=== PATIENT | female | born 1945 | race Caucasian/White ===

== ENCOUNTER 2022-10-09 15:23 | Inpatient (IN) | payer MEDICARE ==
[~2022-10-09] VITALS: Ht 157.5 cm; Wt 57.0 kg
[2022-10-10] MEDS ORDERED: DOCUSATE SODIUM 100 MG (COLACE) CAP PO PRN (11:00)
[2022-10-10] MEDS ORDERED: LOPERAMIDE 2 MG (IMODIUM) TABLET PO PRN (11:00)
[2022-10-10] MEDS ORDERED: guaiFENesin/CODEINE (ROBITUSSIN AC) 10ML UDC PO PRN (11:00)
[2022-10-10] MEDS ORDERED: ACETAMINOPHEN 325 MG TABLET PO PRN (11:00)
[2022-10-10] MEDS ORDERED: diphenhydrAMINE 25 MG TAB (BENADRYL) PO PRN (11:00)
[2022-10-10] MEDS ORDERED: LACTULOSE SYRUP 10GM/15ML (ENULOSE) 30ML UDC PO PRN (11:00)
[2022-10-10] MEDS ORDERED: ALPRAZolam 0.25 MG (XANAX) TAB PO PRN (11:00)
[2022-10-10] MEDS ORDERED: ONDANSETRON 4 MG (ZOFRAN) ORAL DISSOLVE TAB PO PRN (11:00)
[2022-10-10] MEDS ORDERED: BISACODYL 10 MG SUPP (DULCOLAX) PR PRN (11:00)
[2022-10-10] MEDS ORDERED: FLEET ENEMA ADULT 1 EA BTL PR PRN (11:00)
[2022-10-10] MEDS ORDERED: CALCIUM CARBONATE 500 MG (TUMS) TAB.CHEW PO PRN (11:00)
[2022-10-10] MEDS ORDERED: MELATONIN 3 MG TABLET PO PRN (11:00)
[2022-10-10] MEDS ORDERED: ACET325C7 PO (13:49)
[2022-10-10] MEDS ORDERED: APIX5TAB PO (13:51)
[2022-10-10] MEDS ORDERED: EMPA10TA PO (13:52)
[2022-10-10] MEDS ORDERED: DULO30CA49 PO (13:52)
[2022-10-10] MEDS ORDERED: DOCU100C37 PO (13:52)
[2022-10-10] MEDS ORDERED: LORA10TA7 PO (13:56)
[2022-10-10] MEDS ORDERED: FURO20TA4 PO (13:56)
[2022-10-10] MEDS ORDERED: MECL-149 PO (13:57)
[2022-10-10] MEDS ORDERED: METO50TA7 PO (13:57)
[2022-10-10] MEDS ORDERED: PANT40TA52 PO (13:58)
[2022-10-10] MEDS ORDERED: PRAM1TAB2 PO (13:58)
[2022-10-10] MEDS ORDERED: PRAV40TA2 PO (14:01)
[2022-10-10] MEDS ORDERED: POLY17PO6 PO (14:01)
[2022-10-10] MEDS ORDERED: SPIR25TA5 PO (14:02)
[2022-10-10] MEDS ORDERED: TRZ50T PO (14:03)
[2022-10-10 16:00] VITALS: BP 96/54
--- OUTSIDE RECORDS SUMMARY | 2022-10-10 17:18 | XMS REPORT | Encounter Summary ---
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 Industrial Management Teacher Name Role Phone PCP Unavailable Encounter Details Care Team Description Date Type Department Antwan, Interface Unk Provider 10/01/2022 [facility] Virtual [facility] Location Social History Date Tobacco Use Types Packs/Day Years Used Smoking Tobacco: Former Cigarettes Comments Alcohol Use Standard Drinks/Week Never 0 (1 standard drink = 0.6 o z pure alcohol) Sex Assigned at Date Recorded Not on file documented as of this encounter Plan of Treatment Care Team Description Date Type [place] [id number] [facility] [address] [place] [address] 10/17/2022 Office Visit Cardiology Date/Time Name Type Priority Associated Diag noses 10/01/2022 2:27 PM [employer] outside images External Films Routine for PACS documented as of this encounter Procedures Comments Procedure Name Priority Date/Time Associated Diag nosis [employer] OUTSIDE IMAGES Routine 10/01/2022 FOR PACS 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
--- OUTSIDE RECORDS SUMMARY | 2022-10-10 17:18 | XMS REPORT | Clinical Summary ---
Author Author [facility] Organization [facility] Address Unknown Phone Unavailable Care Team Providers Care Chef French Name Role Phone Jennie Holland PCP Allergies Comments Active Allergy Reactions Severity Noted Date Meperidine (Pf) 10/01/2022 Atorvastatin 10/01/2022 Morphine 10/01/2022 Penicillins 10/01/2022 Tetracycline 10/01/2022 Medications End Date Status Medication Sig Dispensed Refills Start Date Active spironolactone Take 0.5 0 (ALDACTONE) 25 MG tablet tablets (12.5 mg total) by mouth daily. Active metoprolol succinate Take 1 tablet 0 (TOPROL-XL) 50 MG 24 hr (50 mg total) tablet by mouth daily. Active empagliflozin (JARDIANCE) Take by mouth 0 10 mg tablet daily. Active trazodone (DESYREL) 50 MG Take 1 tablet 0 tablet (50 mg total) by mouth nightly. Active pravastatin (PRAVACHOL) Take 1 tablet 0 40 MG tablet (40 mg total) by mouth at bedtime. Active DULoxetine (CYMBALTA) 30 Take 1 0 mg capsule capsule (30 mg total) by mouth at bedtime. Active Docusate Sodium 100 MG Take 1 0 capsule capsule (100 mg total) by mouth 2 (two) times a day. Active pantoprazole (PROTONIX) Take 1 tablet 0 40 MG tablet (40 mg total) by mouth every morning. Active pramipexole (MIRAPEX) 1 Take 1 tablet 0 MG tablet (1 mg total) by mouth at bedtime. Active apixaban (ELIQUIS) 5 mg Take 1 tablet 0 tabletIndications: CVA (5 mg total) 3 by mouth 2 (two) times a day. Active furosemide (LASIX) 20 MG Take 1 tablet 0 10/11 tabletIndications: (20 mg total) 3 peripheral edema due to by mouth chronic heart failure daily. Active loratadine (CLARITIN) 10 Take 1 tablet 0 10/11 mg tabletIndications: (10 mg total) 3 allergic rhinitis by mouth daily. Active polyethylene glycol Take 1 packet 14 each 0 09/15 (GLYCOLAX) 17 gram packet (17 g total) 3 by mouth daily as needed. Active meclizine (ANTIVERT) 25 Take 1 tablet 0 mg tabletIndications: (25 mg total) 3 vertigo by mouth 3 (three) times a day. Active acetaminophen (TYLENOL) Take 1-2 0 325 MG tablet tablets 3 (325-650 mg total) by mouth every 6 (six) hours as needed. 10/10/2022 Discontinued (Stop Taking at Discharge) lisinopriL (PRINIVIL, Take 1 tablet 0 ZESTRIL) 5 MG tablet (5 mg total) by mouth daily. 10/10/2022 Discontinued (Stop Taking at Discharge) aspirin 81 MG chewable Chew 1 tablet 0 tablet (81 mg total) daily. Active Problems Problem Noted Date Acute renal insufficiency 10/09/2022 Last Assessment & Plan: Formatting of t his note might be different from the original. -Creatinine trending up, 1.83 today fro m 1.3-1.4. -Suspect related to hypotension and diu retic. Hold furosemide tomorrow (already received a dose today). -Renally dose all medications and avoid nephrotoxic agents. -Monitor BMP. S/P TAVR (transcatheter aortic valve replacement) Last Assessment & Plan: Formatting of t his note might be different from the original. -S/p TAVR on 09/22/22. -Cardiology following; appreciate their help. -With no prior history of coronary dise ase, cardiology okay with proceeding with DOAC only without aspirin. RLS (restless legs syndrome) 10/06/2022 Last Assessment & Plan: Formatting of t his note might be different from the original. -Continue pramipexole. 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 -Echocardiogram noted EF 23% (up from 1 0%). -Cardiology following; appreciate their help. -Transitioned to oral furosemide 20 mg daily. -Continue metoprolol, Jardiance, and sp ironolactone. Losartan 12.5 mg daily yesterday as well but discontinue d today due to low blood pressures and PENG. -Needs to follow-up with dye worker JAROCHO Mas and will need to discuss consideration of ICD therapy if EF remains low. -Daily weights monitor I's and O's. -Telemetry monitoring. Type 2 diabetes mellitus without complication, withou t long-term current 10/05/2022 use of insulin Last Assessment & Plan: Formatting of t his note might be different from the original. -Hemoglobin A1c 5.9. -Continue Jardiance. -Okay to go without Accu-Cheks and slid ing scale at this time. Constipation 10/05/2022 Last Assessment & Plan: Formatting of t his note might be different from the original. -Improved. -Continue bowel regimen. Acute ischemic stroke 10/01/2022 Last Assessment & Plan: Formatting of t his note might be different from the original. -Cardioembolic CVA with residual vertig o, left-sided weakness, and visual field deficit. -Evaluated by neurology; appreciate the ir help. -Imaging showed multifocal acute infarc ts involving the bilateral frontoparietal and supra lobes in the b ilateral cerebellar hemispheres. Patient additionally had trace type I p etechial hemorrhage. -Repeat CT head on 10/08 showed redemons tration of hypodensities with increased surrounding vasogenic edema c onsistent with evolving infarcts but no acute hemorrhage or significant mass effect/midline shift. -Per cardiology, okay to continue with DOAC alone and stop antiplatelets. -After discussing with neurology patien t started on oral apixaban for anticoagulation on 10/08. -Continue PT/OT. -Social for discharge planning. Gurdeep joyner plans for discharge to acute rehab facility tomorrow. Resolved Problems Problem Noted Date Resolved Date Pneumonia of both lungs due to infectious organism 023 10/09/2022 Last Assessment & Plan: Formatting of t his note might be different from the original. -Questionable diagnosis of pneumonia on transfer from outside hospital. Patient did have leukocytosis with WBC of 18. -Completed course of cefepime on 10/05. Acute hypoxemic respiratory failure 10/01/2022 CHF (congestive heart failure) 10/01/2022 023 Encounters Care Team Description Date Type Specialty Zaida Cruz MD Lehenbauer, Kyle, MD Balani, Karishma, MD Fuller, David, MD Acute ischemic stroke (HCC) (Primary Dx) ; Acute hypoxemic respiratory failure (HCC); Restless leg syndrome; Acute on chronic systolic congestive heart failure (HCC); Acute on chronic combined systolic and diastolic congestive heart failure (HCC); S/P TAVR (transcatheter aortic valve replacement); Acute renal insufficiency 10/01/2022 Hospital Cardiology - Encounter 10/10/2022 [place]twan, Interface Unk Provider 10/01/2022 [facility] from Last 3 Months Immunizations Name Administration Dates Next Due Influenza, High Dose 05/08/2018, 05/13/2016, 12/2014 Seasonal, Preservative-free Moderna Sars-COV-2 Half 07/06/2021 Dose Booster Moderna Sars-cov-2 (12+) 11/12/2020, 10/15/2020 Pneumococcal Conjugate 06/18/2015 13-Valent Pneumococcal 07/15/2016 Polysaccharide 23-Valent Varicella Zoster 10/13/2019, 05/22/2019 Recombinant, Adjuvanted (Shingrix) influenza high dose (PF) 06/01/2022 seasonal Social History Date Tobacco Use Types Packs/Day Years Used Smoking Tobacco: Former Cigarettes Tobacco Cessation: Counseling Given: Not Answered Comments Alcohol Use Standard Drinks/Week Never 0 (1 standard drink = 0.6 o z pure alcohol) Sex Assigned at Date Recorded Not on file Last Filed Vital Signs Reading Time Taken Comments Vital Sign 116/52 10/10/2022 7:22 AM AMUSEMENT MACHINE MECHANIC Blood Pressure 97 10/10/2022 7:22 AM AMUSEMENT MACHINE MECHANIC Pulse 36.5 C (97.7 F) 10/10/2022 7:22 AM AMUSEMENT MACHINE MECHANIC Temperature 18 10/10/2022 7:22 AM AMUSEMENT MACHINE MECHANIC Respiratory Rate 97% 10/10/2022 7:22 AM AMUSEMENT MACHINE MECHANIC Oxygen Saturation - - Inhaled Oxygen Concentration 60.8 kg (134 lb 1.6 oz) 10/10/2022 4:51 AM AMUSEMENT MACHINE MECHANIC Weight 157.5 cm (5' 2") 10/01/2022 10:46 AM AMUSEMENT MACHINE MECHANIC Height 24.53 10/01/2022 10:46 AM AMUSEMENT MACHINE MECHANIC Body Mass Index Plan of Treatment Care Team Description Date [place] [address] [place] [address] 10/17/2022 Office Visit Cardiology Health Maintenance Due Date Last Done Comments Diabetes Mellitus 1945 Ophthalmology Exam Diabetes Mellitus Urine 1945 Microalbumin Hepatitis C Screen 1945 Td/Tdap# 1945 Diabetes Mellitus Foot 1955 Exam Depression Screening 2010 PHQ-9 # Osteoporosis Screening 2010 COVID-19 Vaccine (4 - 08/31/2021 07/06/2021, Booster for Moderna 11/12/2020, series) 10/15/2020 Advance Care Planning 08/14/2022 Conversation# Medicare Annual Wellness 08/14/2022 Social Determinants of 08/14/2022 Health# Diabetes Mellitus 03/31/2023 10/01/2022 Hemoglobin A1C Lipid Screening 10/01/2023 10/01/2022 Fall Risk Assessment # 10/10/2023 10/10/2022 Pneumococcal Vaccine: 65+ Completed 07/15/2016, Years 06/18/2015 Zoster Vaccine# Completed 10/13/2019, 05/22/2019 Influenza Vaccine Completed 06/01/2022, 05/08/2018, 05/13/2016, Additional history exists Procedures Comments Procedure Name Priority Date/Time Associated Diag nosis PROTHROMBIN TIME/INR Routine 10/10/2022 9:03 AM AMUSEMENT MACHINE MECHANIC MAGNESIUM Timed 10/10/2022 9:03 AM AMUSEMENT MACHINE MECHANIC CBC AND DIFF (MANUAL DIFF Routine 10/10/2022 IF NECESSARY) 9:03 AM AMUSEMENT MACHINE MECHANIC BASIC METABOLIC PANEL Timed 10/10/2022 9:03 AM AMUSEMENT MACHINE MECHANIC PROTHROMBIN TIME/INR Routine 10/09/2022 7:27 AM AMUSEMENT MACHINE MECHANIC MAGNESIUM Timed 10/09/2022 7:27 AM AMUSEMENT MACHINE MECHANIC CBC AND DIFF (MANUAL DIFF Routine 10/09/2022 IF NECESSARY) 7:27 AM AMUSEMENT MACHINE MECHANIC BASIC METABOLIC PANEL Timed 10/09/2022 7:27 [address] AMUSEMENT MACHINE [address]IC CT HEAD WO CONTRAST Routine 10/08/2022 7:41 AM AMUSEMENT MACHINE MECHANIC PROTHROMBIN TIME/INR Routine 10/07/2022 8:04 PM AMUSEMENT MACHINE MECHANIC MAGNESIUM Timed 10/07/2022 8:04 PM AMUSEMENT MACHINE MECHANIC CBC AND DIFF (MANUAL DIFF Routine 10/07/2022 IF NECESSARY) 8:04 PM AMUSEMENT MACHINE MECHANIC BASIC METABOLIC PANEL Timed 10/07/2022 8:04 PM AMUSEMENT MACHINE MECHANIC GLUCOSE POC Routine 10/07/2022 12:17 PM AMUSEMENT MACHINE MECHANIC GLUCOSE POC Routine 10/07/2022 7:47 AM AMUSEMENT MACHINE MECHANIC PROTHROMBIN TIME/INR Routine 10/07/2022 6:10 AM AMUSEMENT MACHINE MECHANIC MAGNESIUM Timed 10/07/2022 6:10 AM AMUSEMENT MACHINE MECHANIC CBC AND DIFF (MANUAL DIFF Routine 10/07/2022 IF NECESSARY) 6:10 AM AMUSEMENT MACHINE MECHANIC BASIC METABOLIC PANEL Timed 10/07/2022 6:10 AM AMUSEMENT MACHINE MECHANIC GLUCOSE POC Routine 10/06/2022 8:50 PM AMUSEMENT MACHINE MECHANIC GLUCOSE POC Routine 10/06/2022 5:07 PM AMUSEMENT MACHINE MECHANIC GLUCOSE POC Routine 10/06/2022 11:51 AM AMUSEMENT MACHINE MECHANIC XR CHEST SINGLE VIEW Routine 10/06/2022 FRONTAL 7:50 AM AMUSEMENT MACHINE MECHANIC GLUCOSE POC Routine 10/06/2022 7:28 AM AMUSEMENT MACHINE MECHANIC PROTHROMBIN TIME/INR Routine 10/06/2022 6:48 AM AMUSEMENT MACHINE MECHANIC B TYPE NATRIURETIC Routine 10/06/2022 PEPTIDE (BNP) 6:47 AM AMUSEMENT MACHINE MECHANIC MAGNESIUM Timed 10/06/2022 6:47 AM AMUSEMENT MACHINE MECHANIC CBC AND DIFF (MANUAL DIFF Routine 10/06/2022 IF NECESSARY) 6:47 AM AMUSEMENT MACHINE MECHANIC BASIC METABOLIC PANEL Timed 10/06/2022 6:47 AM AMUSEMENT MACHINE MECHANIC GLUCOSE POC Routine 10/05/2022 8:19 PM AMUSEMENT MACHINE MECHANIC GLUCOSE POC Routine 10/05/2022 4:51 PM AMUSEMENT MACHINE MECHANIC XR CHEST 2 VIEWS (PA AND Routine 10/05/2022 LATERAL) 1:18 PM AMUSEMENT MACHINE MECHANIC GLUCOSE POC Routine 10/05/2022 12:06 PM AMUSEMENT MACHINE MECHANIC GLUCOSE POC Routine 10/05/2022 7:40 AM AMUSEMENT MACHINE MECHANIC PROTHROMBIN TIME/INR Routine 10/05/2022 7:25 AM AMUSEMENT MACHINE MECHANIC MAGNESIUM Timed 10/05/2022 7:25 AM AMUSEMENT MACHINE MECHANIC CBC AND DIFF (MANUAL DIFF Routine 10/05/2022 IF NECESSARY) 7:25 AM AMUSEMENT MACHINE MECHANIC BASIC METABOLIC PANEL Timed 10/05/2022 7:25 AM AMUSEMENT MACHINE MECHANIC GLUCOSE POC Routine 10/04/2022 9:03 PM AMUSEMENT MACHINE MECHANIC GLUCOSE POC Routine 10/04/2022 4:30 PM AMUSEMENT MACHINE MECHANIC FL SWALLOWING FUNCTION W Routine 10/04/2022 VIDEO 3:31 PM AMUSEMENT MACHINE MECHANIC GLUCOSE POC Routine 10/04/2022 11:19 AM AMUSEMENT MACHINE MECHANIC GLUCOSE POC Routine 10/04/2022 7:49 AM AMUSEMENT MACHINE MECHANIC PROTHROMBIN TIME/INR Routine 10/03/2022 11:46 PM AMUSEMENT MACHINE MECHANIC MAGNESIUM Timed 10/03/2022 11:46 PM AMUSEMENT MACHINE MECHANIC CBC AND DIFF (MANUAL DIFF Routine 10/03/2022 IF NECESSARY) 11:46 PM AMUSEMENT MACHINE MECHANIC BASIC METABOLIC PANEL Timed 10/03/2022 11:46 PM AMUSEMENT MACHINE MECHANIC GLUCOSE POC Routine 10/03/2022 9:09 PM AMUSEMENT MACHINE MECHANIC GLUCOSE POC Routine 10/03/2022 4:45 PM AMUSEMENT MACHINE MECHANIC GLUCOSE POC Routine 10/03/2022 11:23 AM AMUSEMENT MACHINE MECHANIC TROPONIN-I HS 0HR Routine 10/03/2022 9:00 AM AMUSEMENT MACHINE MECHANIC XR CHEST SINGLE VIEW PORFIRIO 10/03/2022 FRONTAL 8:47 AM AMUSEMENT MACHINE MECHANIC GLUCOSE POC Routine 10/03/2022 7:27 AM AMUSEMENT MACHINE MECHANIC MAGNESIUM Timed 10/03/2022 4:42 AM AMUSEMENT MACHINE MECHANIC BASIC METABOLIC PANEL Timed 10/03/2022 4:42 AM AMUSEMENT MACHINE MECHANIC CBC AND DIFF (MANUAL DIFF Routine 10/03/2022 IF NECESSARY) 4:42 AM AMUSEMENT MACHINE MECHANIC PROTHROMBIN TIME/INR Routine 10/03/2022 4:42 AM AMUSEMENT MACHINE MECHANIC GLUCOSE POC Routine 10/02/2022 8:11 PM AMUSEMENT MACHINE MECHANIC GLUCOSE POC Routine 10/02/2022 4:59 PM AMUSEMENT MACHINE MECHANIC GLUCOSE POC Routine 10/02/2022 11:33 AM AMUSEMENT MACHINE MECHANIC LACTATE VENOUS WB STAT 10/02/2022 9:26 AM AMUSEMENT MACHINE MECHANIC GLUCOSE POC Routine 10/02/2022 7:44 AM AMUSEMENT MACHINE MECHANIC XR CHEST SINGLE VIEW Routine 10/02/2022 FRONTAL 7:05 AM AMUSEMENT MACHINE MECHANIC PROTHROMBIN TIME/INR Routine 10/02/2022 5:24 AM AMUSEMENT MACHINE MECHANIC LACTATE VENOUS WB Timed 10/02/2022 12:59 AM AMUSEMENT MACHINE MECHANIC BASIC METABOLIC PANEL Routine 10/02/2022 12:17 AM AMUSEMENT MACHINE MECHANIC CBC AND DIFF (MANUAL DIFF Routine 10/02/2022 IF NECESSARY) 12:17 AM AMUSEMENT MACHINE MECHANIC GLUCOSE POC Routine 10/01/2022 9:51 PM AMUSEMENT MACHINE MECHANIC MRI HEAD W WO CONTRAST Routine 10/01/2022 9:19 PM AMUSEMENT MACHINE MECHANIC ECHO LIMITED W DOPPLER Routine 10/01/2022 AND COLOR FLOW W CONTRAST 4:07 PM AMUSEMENT MACHINE MECHANIC GLUCOSE POC Routine 10/01/2022 3:19 PM AMUSEMENT MACHINE MECHANIC POWERSHARE OUTSIDE IMAGES Routine 10/01/2022 FOR PACS 2:27 PM AMUSEMENT MACHINE MECHANIC ECG Routine 10/01/2022 1:40 PM AMUSEMENT MACHINE MECHANIC CULTURE, BLOOD Timed 10/01/2022 12:48 PM AMUSEMENT MACHINE MECHANIC CULTURE, BLOOD Timed 10/01/2022 12:32 PM AMUSEMENT MACHINE MECHANIC MRSA NASAL PCR Routine 10/01/2022 12:26 PM AMUSEMENT MACHINE MECHANIC LIPID PANEL Add-On 10/01/2022 12:22 PM AMUSEMENT MACHINE MECHANIC LACTATE VENOUS WB STAT 10/01/2022 12:[address] ANGIO NECK Routine 10/01/2022 11:[address] ANGIO HEAD AND STAT 10/01/2022 PERFUSION P 11:05 AM AMUSEMENT MACHINE MECHANIC STROKE CT HEAD WO STAT 10/01/2022 CONTRAST 11:03 AM AMUSEMENT MACHINE MECHANIC HEMOGLOBIN A1C Add-On 10/01/2022 10:52 AM AMUSEMENT MACHINE MECHANIC TROPONIN-I HS 0HR Add-On 10/01/2022 10:52 AM AMUSEMENT MACHINE MECHANIC THYROID STIMULATING Routine 10/01/2022 HORMONE 10:52 AM AMUSEMENT MACHINE MECHANIC PROTHROMBIN TIME/INR Routine 10/01/2022 10:52 AM AMUSEMENT MACHINE MECHANIC COMPLETE BLOOD COUNT Routine 10/01/2022 10:52 AM AMUSEMENT MACHINE MECHANIC COMPREHENSIVE METABOLIC Routine 10/01/2022 PANEL 10:52 AM AMUSEMENT MACHINE MECHANIC MAGNESIUM Routine 10/01/2022 10:52 AM AMUSEMENT MACHINE MECHANIC XR CHEST SINGLE VIEW PORFIRIO 10/01/2022 FRONTAL 10:50 AM AMUSEMENT MACHINE MECHANIC GLUCOSE POC Routine 10/01/2022 10:46 AM AMUSEMENT MACHINE MECHANIC OXYGEN Routine 10/01/2022 10:38 AM AMUSEMENT MACHINE MECHANIC from Last 3 Months Results * (ABNORMAL) Prothrombin Time/INR (10/10/2022 9:03 AM AMUSEMENT MACHINE MECHANIC) Only the most recent of 10 results within the time period is included. Pathologist Signature Component Value Ref Test Method Analysis Performed A t Range Time Protime 15.1 (H) 11.4 - 10/10/2022 SL[facility] 15.0 Sec 9:44 AM AMUSEMENT MACHINE MECHANIC INR 1.2 0.8 - 10/10/2022 [facility] 1.2 9:44 AM AMUSEMENT MACHINE MECHANIC Anatomical Location / Laterality Collection Method / Volume Ophelia ection Time Received Time Specimen (Source) Venipuncture / Unknown 10/10/2022 9:03 AM AMUSEMENT MACHINE MECHANIC 0 10/10/2022 9:14 AM AMUSEMENT MACHINE MECHANIC Blood (Venous) Santana Ruby MD LAB BLOOD ORDERABLES City/State/ZIP Code Phone Number Performing [place] [address] [address] [facility] * (ABNORMAL) Magnesium (10/10/2022 9:03 AM AMUSEMENT MACHINE MECHANIC) Only the most recent of 9 results within the time period is included. Pathologist Signature Component Value Ref Test Method Analysis Performed A t Range Time Magnesium 2.8 (H) 1.6 - 10/10/2022 SLRL 2.6 9:50 AM mg/dL AMUSEMENT MACHINE MECHANIC Anatomical Location / Laterality Collection Method / Volume Ophelia ection Time Received Time Specimen (Source) Venipuncture / Unknown 10/10/2022 9:03 AM AMUSEMENT MACHINE MECHANIC 0 10/10/2022 9:14 AM AMUSEMENT MACHINE MECHANIC Blood (Venous) Santana Ruby MD LAB BLOOD ORDERABLES City/State/ZIP Code Phone Number Performing [place] [address] [place] [address] * (ABNORMAL) CBC and Diff (manual diff if necessary) (10/10/2022 9:03 AM AMUSEMENT MACHINE MECHANIC) Only the most recent of 9 results within the time period is included. Pathologist Signature Component Value Ref Test Method Analysis Performed A t Range Time WBC 8.00 4.00 - 10/10/2022 [facility] 11.00 9:26 AM TH/uL AMUSEMENT MACHINE MECHANIC RBC 3.49 (L) 4.00 - 10/10/2022 SLRL 5.00 9:26 AM mil/uL AMUSEMENT MACHINE MECHANIC Hemoglobin 10.3 (L) 12.0 - 10/10/2022 [facility] 15.0 9:26 AM g/dL AMUSEMENT MACHINE MECHANIC Hematocrit 33 (L) 36 - 45 10/10/2022 [facility] % 9:26 AM AMUSEMENT MACHINE MECHANIC MCV 95 80 - 99 10/10/2022 [facility] fL 9:26 AM AMUSEMENT MACHINE MECHANIC MCH 30 27 - 34 10/10/2022 [facility] pg 9:26 AM AMUSEMENT MACHINE MECHANIC MCHC 31 (L) 32 - 36 10/10/2022 [facility] g/dL 9:26 AM AMUSEMENT MACHINE MECHANIC RDW 14.1 9.0 - 10/10/2022 SLRL 14.5 % 9:26 AM AMUSEMENT MACHINE MECHANIC Platelet Count 404 (H) 140 - 10/10/2022 [facility]RL 400 9:26 AM Th/uL AMUSEMENT MACHINE MECHANIC MPV 10.2 9.4 - 10/10/2022 [facility] 12.3 fL 9:26 AM AMUSEMENT MACHINE MECHANIC Nucleated RBCs 0 0 - 0 10/10/2022 [facility]RL /100 WBC 9:26 AM AMUSEMENT MACHINE MECHANIC % Neutrophils 65 45 - 78 10/10/2022 [facility] % 9:26 AM AMUSEMENT MACHINE MECHANIC % Lymphocytes 20 15 - 47 10/10/2022 [facility]RL % 9:26 AM AMUSEMENT MACHINE MECHANIC % Monocytes 6 0 - 12 % 10/10/2022 SLRL 9:26 AM AMUSEMENT MACHINE MECHANIC % Eosinophils 7 0 - 7 % 10/10/2022 SLRL 9:26 AM AMUSEMENT MACHINE MECHANIC % Basophils 2 0 - 2 % 10/10/2022 SLRL 9:26 AM AMUSEMENT MACHINE MECHANIC % Imm Grans 0 0 - 1 % 10/10/2022 SLRL 9:26 AM AMUSEMENT MACHINE MECHANIC # Granulocytes 5.20 1.70 - 10/10/2022 SLRL 6.80 9:26 AM TH/uL AMUSEMENT MACHINE MECHANIC # Lymphocytes 1.62 1.00 - 10/10/2022 SLRL 3.30 9:26 AM TH/uL AMUSEMENT MACHINE MECHANIC # Monocytes 0.48 0.20 - 10/10/2022 SLRL 0.90 9:26 AM TH/uL AMUSEMENT MACHINE MECHANIC # Eosinophils 0.55 (H) 0.00 - 10/10/2022 SLRL 0.40 9:26 AM TH/uL AMUSEMENT MACHINE MECHANIC # Basophils 0.12 (H) 0.00 - 10/10/2022 SLRL 0.10 9:26 AM TH/uL AMUSEMENT MACHINE MECHANIC Anatomical Location / Laterality Collection Method / Volume Ophelia ection Time Received Time Specimen (Source) Venipuncture / Unknown 10/10/2022 9:03 AM AMUSEMENT MACHINE MECHANIC 0 10/10/2022 9:14 AM AMUSEMENT MACHINE MECHANIC Blood (Venous) Santana Ruby MD LAB BLOOD ORDERABLES City/State/ZIP Code Phone Number Performing [place] [address] [facility] [address] [place] [address] * (ABNORMAL) Basic Metabolic Panel (10/10/2022 9:03 AM AMUSEMENT MACHINE MECHANIC) Only the most recent of 9 results within the time period is included. Pathologist Signature Component Value Ref Test Method Analysis Performed A t Range Time Sodium 136 136 - 10/10/2022 SLRL 145 9:50 AM mEq/L AMUSEMENT MACHINE MECHANIC Potassium 4.0 3.4 - 10/10/2022 SLRL 5.1 9:50 AM mEq/L AMUSEMENT MACHINE MECHANIC Chloride 100 98 - 109 10/10/2022 [facility]RL mEq/L 9:50 AM AMUSEMENT MACHINE MECHANIC Comment: Reference interval updated 10/14/2021. Carbon Dioxide 26 20 - 31 10/10/2022 [facility]RL mEq/L 9:50 AM AMUSEMENT MACHINE MECHANIC Anion Gap 10 <17 10/10/2022 [facility]RL mmol/L 9:50 AM AMUSEMENT MACHINE MECHANIC Comment: Reference interval updated 02/18/22. Calcium 9.5 8.3 - 10/10/2022 SLRL 10.6 9:50 AM mg/dL AMUSEMENT MACHINE MECHANIC Glucose 220 (H) 70 - 100 10/10/2022 [facility]RL mg/dL 9:50 AM AMUSEMENT MACHINE MECHANIC Blood Urea Nitrogen 52 (H) 9 - 23 10/10/2022 [facility]RL mg/dL 9:50 AM AMUSEMENT MACHINE MECHANIC Creatinine 1.52 (H) 0.55 - 10/10/2022 SLRL 1.02 9:50 AM mg/dL AMUSEMENT MACHINE MECHANIC eGFR 35.2 (L) 60.0 - 10/10/2022 [facility]RL 200.0 9:50 AM mL/min/1 AMUSEMENT MACHINE MECHANIC .73m*2 Comment: The National Kidney Foundation and the [place] Society [employer]ph[employer] (NKF-ASN) recommends using the 2020 CKD Epidemiology Collaboration (CKD-EPI) equation to calculate estimated glomerular filtration rate (eGFR). This equation is only applicable to adult patients and removes race as a variable. Estimated GFR calculated with 2020 CKD-EPI equation. Vegetarian diet, extremely high or low muscle mass, and may affect results. Anatomical Location / Laterality Collection Method / Volume Ophelia ection Time Received Time Specimen (Source) Venipuncture / Unknown 10/10/2022 9:03 AM AMUSEMENT MACHINE MECHANIC 0 10/10/2022 9:14 AM AMUSEMENT MACHINE MECHANIC Blood (Venous) Santana Ruby MD LAB BLOOD ORDERABLES City/State/ZIP Code Phone Number Performing Address Organization [place], [place] [id number] [place] [address] * CT Head wo contrast (10/08/2022 7:41 AM AMUSEMENT MACHINE MECHANIC) Modality Anatomical Region Laterality Computed Tomography Head Anatomical Location / Laterality Collection Method / Volume Ophelia ection Time Received Time Specimen (Source) 10/08/2022 7:39 AM AMUSEMENT MACHINE MECHANIC Impressions 10/08/2022 9:03 AM AMUSEMENT MACHINE MECHANIC Impression: Redemonstrated hypodensities in the right frontoparietal, left parietal, and bilateral cerebellum with increased surrounding vasogenic edema consistent with evolving infarcts. No acute hemorrhage. No significant mass effect or midline shift. Mild cerebral volume loss. Mild chronic small vessel ischemic disease. ATTESTATION STATEMENT: The Staff Radiologist has personally reviewed the images and dictated, reviewed, or edited the final report. READING SITE: Location SYLVIA Benitez 10/08/2022 9:03 AM AMUSEMENT MACHINE MECHANIC Patient: HENRIETTA KAM Sex#: F #: [id number] Raj#: [id number] Location: [facility] H6N [id number] Ordering Provider: RADHA NORWOOD Procedure Requested: [id number] CT HEAD WO CONTRAST Reason for Exam: f/u on hemorrhagic transformation to decide on starting anticoagulation Exam Ordered: 10/08/2022 0300 Begin exam date/time: 10/08/2022 0739 Exam Date/Time: 10/08/[address] HEAD WO CONTRAST Date: 10/08/2022 7:41 AM Clinical Indication: Multiple infarcts. f/u on hemorrhagic transformation to decide on starting anticoagulation initial encounter Comparison: CT angiogram head 10/01/2022, MRI head 10/01/2022. Technique: 5 mm axial tomographic images were obtained of the head without contrast. These were viewed on brain and bone windows. One or more of the following dose reduction techniques were utilized: Automated exposure control (AEC), Adjustment of mA and/or kV according to patient size, Use of iterative reconstruction technique such as ASiR, CT scan done according to ALARA and image gently/image wisely Findings: Redemonstrated hypodensities in the right frontoparietal, left parietal, and bilateral cerebellum with increased surrounding edema consistent with evolving infarcts. No acute hemorrhage. No significant mass effect or midline shift. Mild generalized cerebral and cerebellar volume loss. Mild nonspecific periventricular hypoattenuation, most commonly seen with chronic small vessel ischemic disease. Calcified atherosclerosis of the bilateral cavernous and paraclinoid internal carotid arteries and intracranial vertebral arteries. No intra- or extra-axial mass or fluid collection. The ventricles are normal in size, shape, and morphology. The subarachnoid cisterns are patent. The visualized paranasal sinuses are normal. The visualized portions of the orbits and globes are normal. The mastoid air cells are clear. The steam cleaning machine operator topogram shows no lytic lesion or fracture. Procedure Note Reid Eden MD - 10/08/2022 Patient: HENRIETTA KAM Sex#: F #: 1945 Raj#: [id number] Location: [address] H634-01 Ordering Provider: RADHA NORWOOD Procedure Requested: [id number] CT HEAD WO CONTRAST Reason for Exam: f/u on hemorrhagic transformation to decide on starting anticoagulation Exam Ordered: 10/08/2022 0300 Begin exam date/time: 10/08/2022 0739 Exam Date/Time: 10/08/[address] HEAD WO CONTRAST Date: 10/08/2022 7:41 AM Clinical Indication: Multiple infarcts. f/u on hemorrhagic transformation to decide on starting anticoagulation initial encounter Comparison: CT angiogram head 10/01/2022, MRI head 10/01/2022. Technique: 5 mm axial tomographic images were obtained of the head without contrast. These were viewed on brain and bone windows. One or more of the following dose reduction techniques were utilized: Automated exposure control (AEC), Adjustment of mA and/or kV according to patient size, Use of iterative reconstruction technique such as ASiR, CT scan done according to ALARA and image gently/image wisely Findings: Redemonstrated hypodensities in the right frontoparietal, left parietal, and bilateral cerebellum with increased surrounding edema consistent with evolving infarcts. No acute hemorrhage. No significant mass effect or midline shift. Mild generalized cerebral and cerebellar volume loss. Mild nonspecific periventricular hypoattenuation, most commonly seen with chronic small vessel ischemic disease. Calcified atherosclerosis of the bilateral cavernous and paraclinoid internal carotid arteries and intracranial vertebral arteries. No intra- or extra-axial mass or fluid collection. The ventricles are normal in size, shape, and morphology. The subarachnoid cisterns are patent. The visualized paranasal sinuses are normal. The visualized portions of the orbits and globes are normal. The mastoid air cells are clear. The steam cleaning machine operator topogram shows no lytic lesion or fracture. IMPRESSION Impression: Redemonstrated hypodensities in the right frontoparietal, left parietal, and bilateral cerebellum with increased surrounding vasogenic edema consistent with evolving infarcts. No acute hemorrhage. No significant mass effect or midline shift. Mild cerebral volume loss. Mild chronic small vessel ischemic disease. ATTESTATION STATEMENT: The Staff Radiologist has personally reviewed the images and dictated, reviewed, or edited the final report. READING SITE: Location [facility] Radha Norwood MD IMG CT ORDERABLES * (ABNORMAL) GLUCOSE POC (10/07/2022 12:17 PM AMUSEMENT MACHINE MECHANIC) Only the most recent of 25 results within the time period is included. Pathologist Signature Component Value Ref Test Method Analysis Performed A t Range Time Glucose POC 151 (H) 70 - 100 10/07/2022 [facility] mg/dL 12:17 PM AMUSEMENT MACHINE MECHANIC Anatomical Location / Laterality Collection Method / Volume Ophelia ection Time Received Time Specimen (Source) 10/07/2022 12:17 PM AMUSEMENT MACHINE MECHANIC 10/07/19 12:24 PM AMUSEMENT MACHINE MECHANIC Blood (Venous) Radha Norwood MD LAB BLOOD ORDERABLES City/State/ZIP Code Phone Number Performing [place] [address] * XR Chest single view frontal (10/06/2022 7:50 AM AMUSEMENT MACHINE MECHANIC) Only the most recent of 4 results within the time period is included. Modality Anatomical Region Laterality Computed Radiography Chest Anatomical Location / Laterality Collection Method / Volume Ophelia ection Time Received Time Specimen (Source) 10/06/2022 7:45 AM AMUSEMENT MACHINE MECHANIC Impressions 10/06/2022 9:59 AM AMUSEMENT MACHINE MECHANIC Stable exam. READING SITE: Home, Out of State Narrative 10/06/2022 9:59 AM AMUSEMENT MACHINE MECHANIC Patient: HENRIETTA KAM Sex#: F #: 1945 Raj#: [id number] Location: [facility] H634-01 Ordering Provider: SANTANA RUBY Procedure Requested: [id number] XR CHEST SINGLE VIEW FRONTAL Reason for Exam: Dyspnea Exam Ordered: 10/06/2022 0300 Begin exam date/time: 10/06/2022 0745 Exam Date/Time: 10/06/2022 0750 XR CHEST SINGLE VIEW FRONTAL INDICATION: Dyspnea. COMPARISON STUDY: 10/05/2022 FINDINGS: Lungs: No confluent consolidation. Minimal bibasilar opacities, grossly unchanged.. Pleura: No pleural effusion or pneumothorax. Heart and Mediastinum: Stable cardiomediastinal silhouette and great vessels. Bones and Soft Tissues: Stable regional skeleton and soft tissues. Procedure Note Juan Celaya MD - 10/06/2022 Patient: HENRIETTA KAM Sex#: F #: 1945 Raj#: [id number] Location: [address] H634-01 Ordering Provider: SANTANA RBUY Procedure Requested: [id number] XR CHEST SINGLE VIEW FRONTAL Reason for Exam: Dyspnea Exam Ordered: 10/06/2022 0300 Begin exam date/time: 10/06/2022 0745 Exam Date/Time: 10/06/2022 0750 XR CHEST SINGLE VIEW FRONTAL INDICATION: Dyspnea. COMPARISON STUDY: 10/05/2022 FINDINGS: Lungs: No confluent consolidation. Minimal bibasilar opacities, grossly unchanged.. Pleura: No pleural effusion or pneumothorax. Heart and Mediastinum: Stable cardiomediastinal silhouette and great vessels. Bones and Soft Tissues: Stable regional skeleton and soft tissues. IMPRESSION Stable exam. READING SITE: Home, Out of State Santana Ruby MD IMG DIAGNOSTIC IMAGING RUPESH HICKEY * (ABNORMAL) BNP (10/06/2022 6:47 AM AMUSEMENT MACHINE MECHANIC) Pathologist Signature Component Value Ref Test Method Analysis Performed A t Range Time BNP 1,228 (H) 0 - 100 10/06/2022 [facility] pg/mL 8:37 AM AMUSEMENT MACHINE MECHANIC Anatomical Location / Laterality Collection Method / Volume Ophelia ection Time Received Time Specimen (Source) Venipuncture / Unknown 10/06/2022 6:47 AM AMUSEMENT MACHINE MECHANIC 0 10/06/2022 7:53 AM AMUSEMENT MACHINE MECHANIC Blood (Venous) Narrative RL - 10/06/2022 8:37 AM AMUSEMENT MACHINE MECHANIC [facility] converted from NTproBNP (Ortho - Vitros 5600) to BNP ([facility] - [facility]) on June 06, 2021. Ronny Leone MD LAB BLOOD ORDERABLES City/State/ZIP Code Phone Number Performing [place] [address] * XR Chest 2 views (PA and lateral) (10/05/2022 1:18 PM AMUSEMENT MACHINE MECHANIC) Modality Anatomical Region Laterality Computed Radiography Chest Anatomical Location / Laterality Collection Method / Volume Ophelia ection Time Received Time Specimen (Source) 10/05/2022 1:04 PM AMUSEMENT MACHINE MECHANIC Impressions 10/05/2022 1:35 PM AMUSEMENT MACHINE MECHANIC Improving bibasilar pulmonary opacities with no confluent consolidation. Improving right-sided pleural effusion. READING SITE: Home, Out of State Narrative 10/05/2022 1:35 PM AMUSEMENT MACHINE MECHANIC Patient: HENRIETTA KAM Sex#: F #: 1945 Raj#: [id number] Location: [facility] H6N H634-01 Ordering Provider: NEVILLE NASSAR Procedure Requested: [id number] XR CHEST 2 VIEWS (PA AND LATERAL) Reason for Exam: increased SOB Exam Ordered: 10/05/2022 1132 Begin exam date/time: 10/05/2022 1304 Exam Date/Time: 10/05/2022 1318 XR CHEST 2 VIEWS (PA AND LATERAL) INDICATION: increased SOB. COMPARISON STUDY: October 03, 2022 FINDINGS: Lungs: Improving bibasilar pulmonary opacities with no confluent consolidation. Pleura: Improving right-sided pleural effusion. No pneumothorax. Heart and Mediastinum: The cardiomediastinal silhouette is stable. The great vessels of the thorax are stable. Bones and Soft Tissues: The bones and soft tissues demonstrate no acute abnormality.. Procedure Note Juan Celaya MD - 10/05/2022 Patient: HENRIETTA KAM Sex#: F #: 1945 Raj#: [id number] Location: [address] H634-01 Ordering Provider: NEVILLE NASSAR Procedure Requested: [id number] XR CHEST 2 VIEWS (PA AND LATERAL) Reason for Exam: increased SOB Exam Ordered: 10/05/2022 1132 Begin exam date/time: 10/05/2022 1304 Exam Date/Time: 10/05/2022 1318 XR CHEST 2 VIEWS (PA AND LATERAL) INDICATION: increased SOB. COMPARISON STUDY: October 03, 2022 FINDINGS: Lungs: Improving bibasilar pulmonary opacities with no confluent consolidation. Pleura: Improving right-sided pleural effusion. No pneumothorax. Heart and Mediastinum: The cardiomediastinal silhouette is stable. The great vessels of the thorax are stable. Bones and Soft Tissues: The bones and soft tissues demonstrate no acute abnormality.. IMPRESSION Improving bibasilar pulmonary opacities with no confluent consolidation. Improving right-sided pleural effusion. READING SITE: Home, Out of State Neville Nassar REPOSSESSION AGENT IMG DIAGNOSTIC IMAGING ORDE RABELIUD * FL Swallowing function w video (10/04/2022 3:31 PM AMUSEMENT MACHINE MECHANIC) Modality Anatomical Region Laterality Computed Radiography Abdomen, Lung, Chest, Neck, Head Anatomical Location / Laterality Collection Method / Volume Ophelia ection Time Received Time Specimen (Source) 10/04/2022 3:10 PM AMUSEMENT MACHINE MECHANIC Impressions 10/04/2022 5:07 PM AMUSEMENT MACHINE MECHANIC Mild pharyngeal dysphagia. Please refer to the speech pathology report for further details. ATTESTATION STATEMENT: The Staff Radiologist has personally reviewed the images and dictated, reviewed, or edited the final report. READING SITE: [facility] Narrative 10/04/2022 5:07 PM AMUSEMENT MACHINE MECHANIC Patient: HENRIETTA KAM Sex#: F #: 1945 Raj#: [id number] Location: [address] H634-01 Ordering Provider: BLANE BUCKNER Procedure Requested: [id number] FL SWALLOWING FUNCTION W VIDEO Reason for Exam: concern for dysphagia Exam Ordered: 10/04/2022 1130 Begin exam date/time: 10/04/2022 1510 Exam Date/Time: 10/04/2022 1531 FL SWALLOWING FUNCTION W VIDEO INDICATION: concern for dysphagia. COMPARISON: None. TECHNIQUE: Videofluoroscopic study was performed in conjunction with speech pathology. Various barium liquid and/or food substances were used to evaluate swallowing. Total fluoroscopy time was 0.8 minutes with a dose area product of 14.01 uGy*m^2. FINDINGS: Patient demonstrated normal AP initiation and transit. Flash laryngeal penetration is seen without tracheal aspiration. Residuals were seen in the vallecula and/or piriform sinuses. Epiglottic tilt is reduced. No nasopharyngeal reflux. No cricopharyngeal abnormalities. Procedure Note Luis Eduardo Singh, - 10/04/2022 Patient: HENRIETTA KAM Sex#: F #: 1945 Raj#: [id number] Location: [address] H634-01 Ordering Provider: BLANE BUCKNER Procedure Requested: [id number] FL SWALLOWING FUNCTION W VIDEO Reason for Exam: concern for dysphagia Exam Ordered: 10/04/2022 1130 Begin exam date/time: 10/04/2022 1510 Exam Date/Time: 10/04/2022 1531 FL SWALLOWING FUNCTION W VIDEO INDICATION: concern for dysphagia. COMPARISON: None. TECHNIQUE: Videofluoroscopic study was performed in conjunction with speech pathology. Various barium liquid and/or food substances were used to evaluate swallowing. Total fluoroscopy time was 0.8 minutes with a dose area product of 14.01 uGy*m^2. FINDINGS: Patient demonstrated normal AP initiation and transit. Flash laryngeal penetration is seen without tracheal aspiration. Residuals were seen in the vallecula and/or piriform sinuses. Epiglottic tilt is reduced. No nasopharyngeal reflux. No cricopharyngeal abnormalities. IMPRESSION Mild pharyngeal dysphagia. Please refer to the speech pathology report for further details. ATTESTATION STATEMENT: The Staff Radiologist has personally reviewed the images and dictated, reviewed, or edited the final report. READING SITE: [facility] Santana Ruby MD IMG FLUOROSCOPY ORDERABLES * (ABNORMAL) Troponin-I HS Single (10/03/2022 9:00 AM AMUSEMENT MACHINE MECHANIC) Only the most recent of 2 results within the time period is included. Pathologist Signature Component Value Ref Test Method Analysis Performed A t Range Time Troponin I, 0HR HS 1,011 (HH) <=34 10/03/2022 [facility] pg/mL 10:01 AM AMUSEMENT MACHINE MECHANIC Anatomical Location / Laterality Collection Method / Volume Ophelia ection Time Received Time Specimen (Source) Venipuncture / Unknown 10/03/2022 9:00 AM AMUSEMENT MACHINE MECHANIC 0 10/03/2022 9:05 AM AMUSEMENT MACHINE MECHANIC Blood (Venous) Narrative [facility] - 10/03/2022 10:01 AM AMUSEMENT MACHINE MECHANIC [facility] converted from Troponin I (Ortho - Vitros 5600) to High-Sensitivity Troponin I ([facility] - [facility]) on June 06, 2021. Santana Ruby MD LAB BLOOD ORDERABLES [facility]/ZIP Code Phone Number Performing [place] [address] * Lactate Venous WB - Reflex STAT (10/02/2022 9:26 AM AMUSEMENT MACHINE MECHANIC) Only the most recent of 3 results within the time period is included. Pathologist Signature Component Value Ref Test Method Analysis Performed A t Range Time Lactate Venous 0.9 0.0 - 10/02/2022 [facility] 2.0 9:38 AM mmol/L AMUSEMENT MACHINE MECHANIC Anatomical Location / Laterality Collection Method / Volume Ophelia ection Time Received Time Specimen (Source) Arterial / Unknown 10/02/2022 9:26 AM AMUSEMENT MACHINE MECHANIC 10/02 9:33 AM AMUSEMENT MACHINE MECHANIC Blood (Venous) Nael Ledbetter MD LAB BLOOD ORDERABLES [facility]/ZIP Code Phone Number Performing [place] [address] [address] [facility] * MRI Head w wo contrast (10/01/2022 9:19 PM AMUSEMENT MACHINE MECHANIC) Modality Anatomical Region Laterality Magnetic Resonance Head Anatomical Location / Laterality Collection Method / Volume Ophelia ection Time Received Time Specimen (Source) 10/01/2022 8:51 PM AMUSEMENT MACHINE MECHANIC Impressions 10/02/2022 7:02 AM AMUSEMENT MACHINE MECHANIC 1. Multifocal acute infarcts involving the bilateral frontoparietal and occipital lobes and the bilateral cerebellar hemispheres. Pattern suggestive of watershed ischemia and/or multivascular territory embolic event. Associated trace type I petechial hemorrhage in the right frontoparietal and left parietal lobes. Trace enhancement in the infarct in the right frontoparietal region which may relate to subacute infarct. 2. Mild generalized cerebral and cerebel lar volume loss. Mild subcortical and deep periventricular white matter FLAIR hyperintensities, a nonspecific finding, most commonly seen with chronic small vessel ischemic disease. READING SITE: [facility]. ATTESTATION STATEMENT: The Staff Radiologist has personally reviewed the images and dictated, reviewed, or edited the final report. Narrative 10/02/2022 7:02 AM AMUSEMENT MACHINE MECHANIC Patient: HENRIETTA KAM Sex#: F #: 1945 Raj#: [id number] Location: [address] L0HL-25 Ordering Provider: ANDRÉS EWING Procedure Requested: [id number] MRI HEAD W WO CONTRAST Reason for Exam: CVA/stroke -cerebral flow work-up Exam Ordered: 10/01/2022 1338 Begin exam date/time: 10/01/20222050 Exam Date/Time: 10/01/20222118 MRI HEAD W WO CONTRAST Date: 10/01/2022 9:20 PM Indication: CVA/stroke -cerebral flow work-up Comparison: CT head earlier same day. Technique: Multiplanar multisequence MRI of the brain was performed with and without intravenous contrast using the standard protocol. 5 cc Multihance contrast was administered intravenously during the exam. Findings: Multifocal patchy foci of restricted diffusion involving the bilateral frontoparietal and occipital lobes and the bilateral cerebellar hemispheres. Faint associated enhancement and gradient blooming in the right frontoparietal lobe. Additional petechial hemorrhage in the left parietal lobe. Infarct pattern within the cerebrum may relate to superficial and deep watershed territory. The ventricles are normal in size and configuration without hydrocephalus. Mild generalized cerebral and cerebellar volume loss. Mild scattered FLAIR hyperintensities in the subcortical and periventricular deep white matter, a nonspecific finding, most commonly seen with chronic small vessel ischemic disease. The scalp and calvarium are normal. Empty sella. No Chiari malformation. Mild incompletely characterized degenerative spondylosis of the visualized upper cervical spine. Bilateral lens replacements. Bilateral staphyloma. The visualized paranasal sinuses are clear. The mastoid air cells are clear. Normal flow voids within the vertebral, basilar, and internal carotid arteries indicating patency. Procedure Note Theron More DO - 10/02/2022 Patient: HENRIETTA KAM Sex#: F #: 1945 Raj#: [id number] Location: [address] [id number] Ordering Provider: ANDRÉS EWING Procedure Requested: [id number] MRI HEAD W WO CONTRAST Reason for Exam: CVA/stroke -cerebral flow work-up Exam Ordered: 10/01/2022 1338 Begin exam date/time: 10/01/20222050 Exam Date/Time: 10/01/20222118 MRI HEAD W WO CONTRAST Date: 10/01/2022 9:20 PM Indication: CVA/stroke -cerebral flow work-up Comparison: CT head earlier same day. Technique: Multiplanar multisequence MRI of the brain was performed with and without intravenous contrast using the standard protocol. 5 cc Multihance contrast was administered intravenously during the exam. Findings: Multifocal patchy foci of restricted diffusion involving the bilateral frontoparietal and occipital lobes and the bilateral cerebellar hemispheres. Faint associated enhancement and gradient blooming in the right frontoparietal lobe. Additional petechial hemorrhage in the left parietal lobe. Infarct pattern within the cerebrum may relate to superficial and deep watershed territory. The ventricles are normal in size and configuration without hydrocephalus. Mild generalized cerebral and cerebellar volume loss. Mild scattered FLAIR hyperintensities in the subcortical and periventricular deep white matter, a nonspecific finding, most commonly seen with chronic small vessel ischemic disease. The scalp and calvarium are normal. Empty sella. No Chiari malformation. Mild incompletely characterized degenerative spondylosis of the visualized upper cervical spine. Bilateral lens replacements. Bilateral staphyloma. The visualized paranasal sinuses are clear. The mastoid air cells are clear. Normal flow voids within the vertebral, basilar, and internal carotid arteries indicating patency. IMPRESSION 1. Multifocal acute infarcts involving t he bilateral frontoparietal and occipital lobes and the bilateral cerebellar hemispheres. Pattern suggestive of watershed ischemia and/or multivascular territory embolic event. Associated trace type I petechial hemorrhage in the right frontoparietal and left parietal lobes. Trace enhancement in the infarct in the right frontoparietal region which may relate to subacute infarct. 2. Mild generalized cerebral and cerebel lar volume loss. Mild subcortical and deep periventricular white matter FLAIR hyperintensities, a nonspecific finding, most commonly seen with chronic small vessel ischemic disease. READING SITE: [facility]. ATTESTATION STATEMENT: The Staff Radiologist has personally reviewed the images and dictated, reviewed, or edited the final report. Andrés Ewing RN IMG MRI ORDERABLES ANP * ECHO LIMITED W DOPPLER AND COLOR FLOW W CONTRAST (10/01/2022 4:07 PM AMUSEMENT MACHINE MECHANIC) Pathologist Signature Component Value Ref Test Method Analysis Performed A t Range Time ECHOCRITICAL Yes, new PROSOLV critical echo findings available for this patient Modality Anatomical Region Laterality Ultrasound Chest Anatomical Location / Laterality Collection Method / Volume Ophelia ection Time Received Time Specimen (Source) 10/01/2022 3:27 PM AMUSEMENT MACHINE MECHANIC Narrative 10/01/2022 5:55 PM AMUSEMENT MACHINE MECHANIC Conclusions 1. Severely reduced left ventricular systolic function with a calculated ejection fraction of 23%. 2. Severely dilated left ventricular chamber dimension, LVEDV index = 104 ml/m2. 3. Akinesis of the basal-mid inferior and septal fink with hypokinesis of the remaining segments. 4. Normal right ventricular size and systolic function. 5. 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 6. Calcific mitral annulus with mild stenosis (mean gradient 6 mmHg at 86 bpm) and [id number] regurgitation. Comparison * No previous study for comparison. Patient Info Name: Henrietta Kam Age: 77 years : 1945 Gender: Female Ht: 62 in Wt: 124 lbs BSA: 1.57 m2 HR: 87 bpm BP: 94 / 54 mmHg Technical Quality: Adequate Exam Date: 10/01/2022 3:27 PM Patient Status: Inpatient Room Number: H4CC Exam Type: ECHO LIMITED W DOPPLER AND COLOR FLOW W CONTRAST Study Info Indications Cardiomyopathy - Other - BMI: 23 kg/m2 Referring Physician: Clay Bower Attending Physician: Zaida Cruz Head Up Operator: Jazmine Lopez * Definity was used to enhance left ventricular endocardial border definition. Valve Surgery: No Transcatheter Intervention: TAVR Left Ventricle * Nondiagnostic diastolic function parameters. * Severely dilated left ventricular chamber dimension, LVEDV index = 104 ml/m2. * Severely reduced left ventricular systolic function with a calculated ejection fraction of 23%. * Inferior wall left ventricular hypertrophy. Right Ventricle * Normal right ventricular size and systolic function. Hemodynamics * Normal estimated pulmonary arterial systolic pressure is 34 mmHg. Left Atrium * Moderately dilated left atrial chamber dimension, LA volume index = 42 ml/m2. Right Atrium * Normal right atrial chamber dimension. 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 Pulmonic Valve * Normal pulmonic valve. No regurgitation. Mitral Valve * Calcific mitral annulus with mild stenosis (mean gradient 6 mmHg at 86 bpm) and [id number] regurgitation. * Thickened mitral valve leaflets. Tricuspid Valve * Normal tricuspid valve. No regurgitation. Pericardium/Pleural * Moderate left pleural effusion. * No pericardial effusion. Inferior Vena Cava * Normal inferior vena cava with >50% collapse upon inspiration consistent with normal right atrial pressure, 5 mmHg. Aorta * Normal aortic root at the sinuses of Valsalva measuring 2.7 cm with an index of 1.7 cm/m2. * Normal proximal ascending aorta measuring 3.2 cm. Wall Motion Scoring Wall Motion Scoring Index: 2.41 Wall Motion Findings The inferoseptal wall, basal inferior wall, mid inferior wall, basal anteroseptal, and mid anteroseptal are akinetic. The anterior wall, anterolateral wall, inferolateral wall, apical inferior wall, and apical cap are hypokinetic. Measurements Left Ventricular Outflow Tract Name Value Normal LVOT 2D LVOT Diameter 1.5 cm LVOT Doppler LVOT Peak Velocity 148 cm/s LVOT VTI 26 cm LVOT Stroke Volume 45 ml LVOT Stroke Volume Index 29 ml/m2 Mitral Valve Name Value Normal MV Doppler MV Mean Gradient 6 mmHg Heart Rate (MV) 86 bpm MV Regurgitation Doppler MR ERO (PISA) 0.22 cm2 MR Volume (PISA) 31 ml MV Diastolic Function MV E Peak Velocity 123 cm/s >=50 MV A Peak Velocity 145 cm/s MV E/A 0.8 0.8-2.0 Tricuspid Valve Name Value Normal TV Regurgitation Doppler TR Peak Velocity 269 cm/s <=280 Estimated PAP/RSVP RA Pressure 5 mmHg <=5 RV Systolic Pressure 34 mmHg <36 Aorta Name Value Normal Ascending Aorta Sinuses of Valsalva Diameter 2.7 cm 2.7-3.3 Sinuses of Valsalva Index 1.7 cm/m2 1.6-2.0 Prox Asc Ao Diameter 3.2 cm <4.5 Aortic Valve Name Value Normal AV Doppler AV Peak Velocity 173 cm/s <260 AV Mean Gradient 6 mmHg AV VTI 30 cm AV Area (Cont Eq VTI) 1.5 cm2 >=3.0 LVOT VTI/AV VTI Ratio 0.85 Ventricles Name Value Normal LV Dimensions 2D/MM IVS Diastolic Thickness (2D) 0.9 cm 0.6-0.9 LVID Diastole (2D) 4.4 cm 3.8-5.2 LVIW Diastolic Thickness (2D) 1.3 cm 0.6-0.9 IVS/LVIW Diastolic Thickness (2D) 0.69 <1.30 LVID Systole (2D) 3.9 cm 2.2-3.5 LVOT Diameter 1.5 cm Relative Wall Thickness (2D) 0.59 LV Ejection Fraction 2D/MM LV Diastolic Volume (4C MOD) 159 ml LV Systolic Volume (4C MOD) 105 ml LV Diastolic Volume (2C MOD) 166 ml LV Systolic Volume (2C MOD) 146 ml LV Diastolic Volume 164 ml 46-106 LV Diastolic Volume Index 104 ml/m2 29-61 LV Systolic Volume 126 ml 14-42 LV Systolic Volume Index 80 ml/m2 8-24 LV EF 23 % 54-74 LV Diastolic Length (4C) 8.9 cm LV Systolic Length (4C) 7.7 cm LV Stroke Volume (4C MOD) 54 ml LV Stroke Volume Index 34 ml/m2 RV Dimensions 2D/MM RV Basal Diastolic Dimension 3.2 cm 2.5-4.1 RV Diastolic Area (4C) 16.4 cm2 8.0-20.0 RV Systolic Area (4C) 9.8 cm2 3.0-11.0 TAPSE 1.8 cm >=1.7 Atria Name Value Normal LA Dimensions LA Dimension (2D) 3.8 cm 2.7-3.8 LA Volume Index 42 ml/m2 16-34 Report Signatures Finalized by Renetta Hernandez M.D. on 10/01/2022 05:54 PM Procedure Note Renetta Hernandez MD - 10/01/2022 Conclusions 1. Severely reduced left ventricular systolic function with a calculated ejection fraction of 23%. 2. Severely dilated left ventricular chamber dimension, LVEDV index = 104 ml/m2. 3. Akinesis of the basal-mid inferior and septal fink with hypokinesis of the remaining segments. 4. Normal right ventricular size and systolic function. 5. 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 6. Calcific mitral annulus with mild stenosis (mean gradient 6 mmHg at 86 bpm) and yvzs-ic-canknesl regurgitation. Comparison * No previous study for comparison. Patient Info Name: Henrietta Kam Age: 77 years : 1945 Gender: Female Ht: 62 in Wt: 124 lbs BSA: 1.57 m2 HR: 87 bpm BP: 94 / 54 mmHg Technical Quality: Adequate Exam Date: 10/01/2022 3:27 PM Patient Status: Inpatient Room Number: H4CC Exam Type: ECHO LIMITED W DOPPLER AND COLOR FLOW W CONTRAST Study Info Indications Cardiomyopathy - Other - BMI: 23 kg/m2 Referring Physician: Clay Bower Attending Physician: Zaida Cruz Head Up Operator: Jazmine Lopez * Definity was used to enhance left ventricular endocardial border definition. Valve Surgery: No Transcatheter Intervention: TAVR Left Ventricle * Nondiagnostic diastolic function parameters. * Severely dilated left ventricular chamber dimension, LVEDV index = 104 ml/m2. * Severely reduced left ventricular systolic function with a calculated ejection fraction of 23%. * Inferior wall left ventricular hypertrophy. Right Ventricle * Normal right ventricular size and systolic function. Hemodynamics * Normal estimated pulmonary arterial systolic pressure is 34 mmHg. Left Atrium * Moderately dilated left atrial chamber dimension, LA volume index = 42 ml/m2. Right Atrium * Normal right atrial chamber dimension. 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 Pulmonic Valve * Normal pulmonic valve. No regurgitation. Mitral Valve * Calcific mitral annulus with mild stenosis (mean gradient 6 mmHg at 86 bpm) and fkpu-iw-jelubnfe regurgitation. * Thickened mitral valve leaflets. Tricuspid Valve * Normal tricuspid valve. No regurgitation. Pericardium/Pleural * Moderate left pleural effusion. * No pericardial effusion. Inferior Vena Cava * Normal inferior vena cava with >50% collapse upon inspiration consistent with normal right atrial pressure, 5 mmHg. Aorta * Normal aortic root at the sinuses of Valsalva measuring 2.7 cm with an index of 1.7 cm/m2. * Normal proximal ascending aorta measuring 3.2 cm. Wall Motion Scoring Wall Motion Scoring Index: 2.41 Wall Motion Findings The inferoseptal wall, basal inferior wall, mid inferior wall, basal anteroseptal, and mid anteroseptal are akinetic. The anterior wall, anterolateral wall, inferolateral wall, apical inferior wall, and apical cap are hypokinetic. Measurements Left Ventricular Outflow Tract Name Value Normal LVOT 2D LVOT Diameter 1.5 cm LVOT Doppler LVOT Peak Velocity 148 cm/s LVOT VTI 26 cm LVOT Stroke Volume 45 ml LVOT Stroke Volume Index 29 ml/m2 Mitral Valve Name Value Normal MV Doppler MV Mean Gradient 6 mmHg Heart Rate (MV) 86 bpm MV Regurgitation Doppler MR ERO (PISA) 0.22 cm2 MR Volume (PISA) 31 ml MV Diastolic Function MV E Peak Velocity 123 cm/s >=50 MV A Peak Velocity 145 cm/s MV E/A 0.8 0.8-2.0 Tricuspid Valve Name Value Normal TV Regurgitation Doppler TR Peak Velocity 269 cm/s <=280 Estimated PAP/RSVP RA Pressure 5 mmHg <=5 RV Systolic Pressure 34 mmHg <36 Aorta Name Value Normal Ascending Aorta Sinuses of Valsalva Diameter 2.7 cm 2.7-3.3 Sinuses of Valsalva Index 1.7 cm/m2 1.6-2.0 Prox Asc Ao Diameter 3.2 cm <4.5 Aortic Valve Name Value Normal AV Doppler AV Peak Velocity 173 cm/s <260 AV Mean Gradient 6 mmHg AV VTI 30 cm AV Area (Cont Eq VTI) 1.5 cm2 >=3.0 LVOT VTI/AV VTI Ratio 0.85 Ventricles Name Value Normal LV Dimensions 2D/MM IVS Diastolic Thickness (2D) 0.9 cm 0.6-0.9 LVID Diastole (2D) 4.4 cm 3.8-5.2 LVIW Diastolic Thickness (2D) 1.3 cm 0.6-0.9 IVS/LVIW Diastolic Thickness (2D) 0.69 <1.30 LVID Systole (2D) 3.9 cm 2.2-3.5 LVOT Diameter 1.5 cm Relative Wall Thickness (2D) 0. 59 LV Ejection Fraction 2D/MM LV Diastolic Volume (4C MOD) 159 ml LV Systolic Volume (4C MOD) 105 ml LV Diastolic Volume (2C MOD) 166 ml LV Systolic Volume (2C MOD) 146 ml LV Diastolic Volume 164 ml 46-106 LV Diastolic Volume Index 104 ml/m2 29-61 LV Systolic Volume 126 ml 14-42 LV Systolic Volume Index 80 ml/m2 8-24 LV EF 23 % 54-74 LV Diastolic Length (4C) 8.9 cm LV Systolic Length (4C) 7.7 cm LV Stroke Volume (4C MOD) 54 ml LV Stroke Volume Index 34 ml/m2 RV Dimensions 2D/MM RV Basal Diastolic Dimension 3.2 cm 2.5-4.1 RV Diastolic Area (4C) 16.4 cm2 8.0-20.0 RV Systolic Area (4C) 9.8 cm2 3.0-11.0 TAPSE 1.8 cm >=1.7 Atria Name Value Normal LA Dimensions LA Dimension (2D) 3.8 cm 2.7-3.8 LA Volume Index 42 ml/m2 Report Signatures Finalized by Renetta Hernandez M.D. on 10/01/2022 05:54 PM Andrés Ewing RN CV ECHO ORDERABLES ANP * Electrocardiogram without magnet (10/01/2022 1:40 PM AMUSEMENT MACHINE MECHANIC) Pathologist Signature Component Value Ref Test Method Analysis Performed A t Range Time QRSd 146 [facility]AC[facility]ER QT 444 [facility]ER QTC 541 [facility]AC[facility]ER ECGHR 89 TRAC[facility]ER ECGPR 184 [facility]AC[facility]ER Anatomical Location / Laterality Collection Method / Volume Ophelia ection Time Received Time Specimen (Source) 10/01/2022 1:40 PM AMUSEMENT MACHINE MECHANIC Narrative TRACEMASTER - 10/02/2022 9:44 AM AMUSEMENT MACHINE MECHANIC [facility] Test Date: 2022-10-01 Pat Name: [facility] Department: [facility] Room: [facility] Gender: Female Repairer Art Objects: [id number] : 1945 Requested By: CARMENCITA PICKETT Order Number: [id number] Reading MD: Adebayo Gardner Measurements Intervals [place] Rate: 89 P: 51 TN: 184 QRS: -46 QRSD: 146 T: 153 QT: 444 QTc: 541 Interpretive Statements Sinus rhythm Probable left atrial enlargement Left bundle branch block Electronically Signed On 10-02-2022 9:44:02 AMUSEMENT MACHINE MECHANIC by Adebayo Gardner Procedure Note Adebayo Gardner MD - 10/02/2022 [facility] Test Date: 2022-10-01 Pat Name: [facility] Department: [facility] Room: [facility] Gender: Female Repairer Art Objects: [id number] : 1945 Requested By: CARMENCITA PICKETT Order Number: [id number] Reading MD: Adebayo Gardner Measurements Intervals [place] Rate: 89 P: 51 TN: 184 QRS: -46 QRSD: 146 T: 153 QT: 444 QTc: 541 Interpretive Statements Sinus rhythm Probable left atrial enlargement Left bundle branch block Electronically Signed On 10-02-2022 9:44:02 AMUSEMENT MACHINE MECHANIC by Adebayo Gardner Carmencita Pickett MD ECG ORDERABLES City/State/ZIP Code Phone Number Performing Address Organization [facility]AC[facility]ASTER * Culture, Blood (10/01/2022 12:48 PM AMUSEMENT MACHINE MECHANIC) Only the most recent of 2 results within the time period is included. Pathologist Signature Component Value Ref Test Method Analysis Performed A t Range Time Culture growth No growth at [place] 10/06/2022 [facility] 5 days 1:00 PM AMUSEMENT MACHINE MECHANIC Anatomical Location / Laterality Collection Method / Volume Ophelia ection Time Received Time Specimen (Source) Venipuncture / Unknown 10/01/2022 12:48 PM AMUSEMENT MACHINE MECHANIC 0 10/01/2022 12:54 PM AMUSEMENT MACHINE MECHANIC Blood (Peripheral, Wrist) Carmencita Pickett MD [facility] Code Phone Number Performing [place] [address] * MRSA Nasal PCR (10/01/2022 12:26 PM AMUSEMENT MACHINE MECHANIC) Pathologist Signature Component Value Ref Test Method Analysis Performed A t Range Time MRSA PCR Not Detected Not 10/01/2022 [facility] Detected 7:41 PM AMUSEMENT MACHINE MECHANIC Anatomical Location / Laterality Collection Method / Volume Ophelia ection Time Received Time Specimen (Source) Non-Blood Collection / Unknown 10/01/2022 12:26 PM AMUSEMENT MACHINE MECHANIC 10/01/2022 12:30 PM AMUSEMENT MACHINE MECHANIC Swab (NASOPHARYNGEAL SWAB) Carmencita Pickett MD [facility] Code Phone Number Performing Address [place] [address] [address] [facility] * Lipid Panel (10/01/2022 12:22 PM AMUSEMENT MACHINE MECHANIC) Pathologist Signature Component Value Ref Test Method Analysis Performed A t Range Time Cholesterol 115 <200 10/01/2022 [facility] mg/dL 6:24 PM AMUSEMENT MACHINE MECHANIC HDL Cholesterol 58 >40 10/01/2022 [facility] mg/dL 6:24 PM AMUSEMENT MACHINE MECHANIC Non-HDL Cholesterol 57 <=130 10/01/2022 [facility] mg/dL 6:24 PM AMUSEMENT MACHINE MECHANIC Triglycerides 67 <150 10/01/2022 [facility] mg/dL 6:24 PM AMUSEMENT MACHINE MECHANIC LDL Cholesterol 43.6 0 - 99 10/01/2022 [facility] mg/dL 6:24 PM AMUSEMENT MACHINE MECHANIC Cholesterol/HDL 2.0 0.0 - 10/01/2022 [facility] Ratio 4.5 6:24 PM AMUSEMENT MACHINE MECHANIC Anatomical Location / Laterality Collection Method / Volume Ophelia ection Time Received Time Specimen (Source) Venipuncture / Unknown 10/01/2022 12:22 PM AMUSEMENT MACHINE MECHANIC 0 10/01/2022 12:28 PM AMUSEMENT MACHINE MECHANIC Blood (Venous) Andrés Ewing RN LAB BLOOD ORDERABLES ANP City/State/ZIP Code Phone Number Performing [place] [address] [address] [facility] * CT Angio Neck (10/01/2022 11:07 AM AMUSEMENT MACHINE MECHANIC) Modality Anatomical Region Laterality Computed Tomography Neck, Vascular Anatomical Location / Laterality Collection Method / Volume Ophelia ection Time Received Time Specimen (Source) 10/01/2022 11:04 AM AMUSEMENT MACHINE MECHANIC Impressions 10/01/2022 12:58 PM AMUSEMENT MACHINE MECHANIC Impression: 1. No stenosis of the cervical carotid or vertebral arteries. 2. Beaded appearance to the bilateral upper cervical ICA suggesting fibromuscular dysplasia. No associated stenosis, dissection, or pseudoaneurysm. 3. Moderate cervical spondylosis. ATTESTATION STATEMENT: The staff radiologist has personally reviewed the images and dictated, reviewed and/or edited the resident's report. READING SITE: [address] 10/01/2022 12:58 PM AMUSEMENT MACHINE MECHANIC Patient: HENRIETTA KAM Sex#: F #: 1945 Raj#: [id number] Location: [place] [address] Ordering Provider: CARMENCITA PICKETT Procedure Requested: [id number] CT ANGIO NECK Reason for Exam: stroke Exam Ordered: 10/01/2022 1052 Begin exam date/time: 10/01/2022 1104 Exam Date/Time: 10/01/[address] Angiogram of the Neck (with contrast) Date: 10/01/2022 11:11 AM Indication: stroke, left sided weakness Comparison: Concurrent cerebral CT angiogram and perfusion imaging. Technique: CT angiogram of neck was obtained with bolus injection of 75 mL of Omnipaque 350. The images were sent to workstation and multiplanar reconstructions were obtained. These images were sent to a separate work station and 3-D volume rendering was performed. One or more of the following dose reduction techniques were utilized: Automated exposure control (AEC), Adjustment of mA and/or kV according to patient size, Use of iterative reconstruction technique such as ASiR, CT scan done according to ALARA and image gently/image wisely Findings: Right carotid: The right common carotid artery is patent and normal caliber. Mild atherosclerosis of the carotid bifurcation. No stenosis of the right internal carotid artery per NASCET criteria. The right external carotid artery is patent. Beaded appearance to the upper cervical ICA suggesting fibromuscular dysplasia. No associated stenosis, dissection, or pseudoaneurysm. Left carotid: The left common carotid artery is patent and normal caliber. Mild atherosclerosis of the carotid bifurcation. No stenosis of the left internal carotid artery per NASCET criteria. The left external carotid artery is patent. Beaded appearance to the upper cervical ICA suggesting fibromuscular dysplasia. No associated stenosis, dissection, or pseudoaneurysm. Right vertebral: Mild atherosclerosis at the origin of the right vertebral artery, which is otherwise patent and normal caliber. Left vertebral: Mild atherosclerosis at the origin of the left vertebral artery, which is otherwise patent and normal caliber. Mild atherosclerosis of the aortic arch. Mild to moderate atherosclerotic plaque involving the right proximal brachiocephalic artery and mild atherosclerotic plaque of the left brachiocephalic and left subclavian arteries. No cervical lymphadenopathy. The thyroid gland is normal. The parotid and submandibular glands are normal. The visualized aerodigestive tract is unremarkable. Reversal of the cervical spine. Grade 1 anterolisthesis of C4 on C5. Ankylosis of C5-6 vertebral bodies. Moderate multilevel degenerative disc height loss. Multilevel disc protrusions and marginal osteophytes results in multilevel spinal canal stenosis. Multilevel uncovertebral and facet arthrosis with multilevel neural foraminal narrowing. Bilateral pleural effusions. Heterogeneous opacities in the lungs likely atelectasis with underlying edema/infection also possible. Procedure Note Roldan Samayoa MD - 10/01/2022 Patient: HENRIETTA KAM Sex#: F #: 1945 Raj#: [id number] Location: [address] Ordering Provider: CARMENCITA PICKETT Procedure Requested: [id number] CT ANGIO NECK Reason for Exam: stroke Exam Ordered: 10/01/2022 1052 Begin exam date/time: 10/01/2022 110 Exam Date/Time: 10/01/[address] Angiogram of the Neck (with contrast) Date: 10/01/2022 11:11 AM Indication: stroke, left sided weakness Comparison: Concurrent cerebral CT angiogram and perfusion imaging. Technique: CT angiogram of neck was obtained with bolus injection of 75 mL of Omnipaque 350. The images were sent to workstation and multiplanar reconstructions were obtained. These images were sent to a separate work station and 3-D volume rendering was performed. One or more of the following dose reduction techniques were utilized: Automated exposure control (AEC), Adjustment of mA and/or kV according to patient size, Use of iterative reconstruction technique such as ASiR, CT scan done according to ALARA and image gently/image wisely Findings: Right carotid: The right common carotid artery is patent and normal caliber. Mild atherosclerosis of the carotid bifurcation. No stenosis of the right internal carotid artery per NASCET criteria. The right external carotid artery is patent. Beaded appearance to the upper cervical ICA suggesting fibromuscular dysplasia. No associated stenosis, dissection, or pseudoaneurysm. Left carotid: The left common carotid artery is patent and normal caliber. Mild atherosclerosis of the carotid bifurcation. No stenosis of the left internal carotid artery per NASCET criteria. The left external carotid artery is patent. Beaded appearance to the upper cervical ICA suggesting fibromuscular dysplasia. No associated stenosis, dissection, or pseudoaneurysm. Right vertebral: Mild atherosclerosis at the origin of the right vertebral artery, which is otherwise patent and normal caliber. Left vertebral: Mild atherosclerosis at the origin of the left vertebral artery, which is otherwise patent and normal caliber. Mild atherosclerosis of the aortic arch. Mild to moderate atherosclerotic plaque involving the right proximal brachiocephalic artery and mild atherosclerotic plaque of the left brachiocephalic and left subclavian arteries. No cervical lymphadenopathy. The thyroid gland is normal. The parotid and submandibular glands are normal. The visualized aerodigestive tract is unremarkable. Reversal of the cervical spine. Grade 1 anterolisthesis of C4 on C5. Ankylosis of C5-6 vertebral bodies. Moderate multilevel degenerative disc height loss. Multilevel disc protrusions and marginal osteophytes results in multilevel spinal canal stenosis. Multilevel uncovertebral and facet arthrosis with multilevel neural foraminal narrowing. Bilateral pleural effusions. Heterogeneous opacities in the lungs likely atelectasis with underlying edema/infection also possible. IMPRESSION Impression: 1. No stenosis of the cervical carotid or vertebral arteries. 2. Beaded appearance to the bilateral u pper cervical ICA suggesting fibromuscular dysplasia. No associated stenosis, dissection, or pseudoaneurysm. 3. Moderate cervical spondylosis. ATTESTATION STATEMENT: The staff radiologist has personally reviewed the images and dictated, reviewed and/or edited the resident's report. READING SITE: [facility] Carmencita Pickett MD [facility] ORDERABLES * CT Angio Head and Perfusion P (10/01/2022 11:05 AM AMUSEMENT MACHINE MECHANIC) Modality Anatomical Region Laterality Computed Tomography Head, Vascular Anatomical Location / Laterality Collection Method / Volume Ophelia ection Time Received Time Specimen (Source) 10/01/2022 11:04 AM AMUSEMENT MACHINE MECHANIC Impressions 10/01/2022 1:02 PM AMUSEMENT MACHINE MECHANIC Impression: 1. Small multiple acute to subacute infa rcts in the right frontal, left parietal, left occipital lobes, and bilateral cerebellum, likely embolic etiology. Recommend brain MRI for further assessment. 2. No emergent large vessel occlusion. N o large vessel perfusion abnormality. No indication for acute endovascular intervention. 3. No hemorrhage or mass effect. 4. Mild nonspecific periventricular hypo attenuation, most commonly seen with chronic small vessel ischemic disease. The above findings were communicated by telephone to the code neuro nurse by Dr. Samayoa at 11:12 am on 10/01/2022. The findings were also communicated to Dr. ZAIDA CRUZ and Maureen Leiva RN by the complex care nurse practitioner resident. ATTESTATION STATEMENT: The staff radiologist has personally reviewed the images and dictated, reviewed and/or edited the resident's report. READING SITE: [facility] Narrative 10/01/2022 1:02 PM AMUSEMENT MACHINE MECHANIC Patient: HENRIETTA KAM Sex#: F #: 1945 Raj#: [id number] Location: [place] [address] Ordering Provider: ZAIDA CRUZ Procedure Requested: [id number] CT ANGIO HEAD AND PERFUSION P Reason for Exam: stroke symptoms Exam Ordered: 10/01/2022 1100 Begin exam date/time: 10/01/2022 1104 Exam Date/Time: 10/01/[address] Head (without contrast), CT Angiogram & CT Perfusion Head (with contrast) Date: 10/01/2022 11:07 AM Indication: stroke symptoms; left hemiparesis MCA stroke syndrome. CT angiogram is needed to evaluate for any large vessel occlusion. CT perfusion is clinically necessary to determine if the patient may be a candidate for acute endovascular intervention with mechanical thrombectomy for treatment of acute ischemic stroke. Both CT angiogram and perfusion studies are needed to determine patient management. Comparison : Concurrent CTA neck. Technique: Multiple axial tomographic images of the head were obtained without contrast. Axial slices for perfusion were selected and CT perfusion head was performed with bolus injection of 40 cc of Omnipaque 350. The images were sent to workstati on and mean transit time (MTT), cerebral blood flow (CBF), and cerebral blood volume (CBV) were calculated. CT angiogram was obtained after IV administration of 75 ml of Omnipaque-350. These images were sent to work station and 3-D volume rendering was performed. One or more of the following dose reduction techniques were utilized: Automated exposure control (AEC), Adjustment of mA and/or kV according to patient size, Use of iterative reconstruction technique such as ASiR, CT scan done according to ALARA and image gently/image wisely. RAPID AI software was utilized on the CT perfusion images to attempt to automatically detect acute large vessel occlusion (LVO) in order to reduce acute stroke treatment times. This exam was also viewed in real time by a physician. Small arterial branch occlusions arent excluded by CT perfusion. Noncontrast CT Head Findings: Several areas of acute subacute infarcts in the right frontal, left parietal, left cerebellar region, and right cerebellar region. No acute hemorrhage. No intra or extra-axial mass or fluid collection. The ventricles are normal in size and configuration without hydrocephalus. The basilar cisterns are patent. Mild generalized cerebral and cerebellar volume loss. Mild nonspecific periventricular hypoattenuation, most commonly seen with chronic small vessel ischemic disease. No soft tissue abnormality seen. Visible sinuses and orbits are normal. The mastoid air cells are clear. CT Angiogram Findings: Moderate bilateral cavernous internal carotid artery atherosclerosis. Normal filling of the proximal bilateral anterior and middle cerebral branches. The vertebral, basilar and posterior cerebral arteries are normal. No arterial occlusion. No aneurysm. No arteriovenous malformation. CT Perfusion Findings: There are small areas of Tmax asymmetry in the left occipital lobe which are likely artifactual, however occlusion of the distal posterior branches are not excluded. Procedure Note Roldan Samayoa MD - 10/01/2022 Patient: HENRIETTA KAM Sex#: F #: 1945 Raj#: [id number] [id number] Ordering Provider: ZAIDA CRUZ Procedure Requested: [id number] CT ANGIO HEAD AND PERFUSION P Reason for Exam: stroke symptoms Exam Ordered: 10/01/2022 1100 Begin exam date/time: 10/01/2022 1104 Exam Date/Time: 10/01/[address] Head (without contrast), CT Angiogram & CT Perfusion Head (with contrast) Date: 10/01/2022 11:07 AM Indication: stroke symptoms; left hemiparesis MCA stroke syndrome. CT angiogram is needed to evaluate for any large vessel occlusion. CT perfusion is clinically necessary to determine if the patient may be a candidate for acute endovascular intervention with mechanical thrombectomy for treatment of acute ischemic stroke. Both CT angiogram and perfusion studies are needed to determine patient management. Comparison : Concurrent CTA neck. Technique: Multiple axial tomographic images of the head were obtained without contrast. Axial slices for perfusion were selected and CT perfusion head was performed with bolus injection of 40 cc of Omnipaque 350. The images were sent to workstatio n and mean transit time (MTT), cerebral blood flow (CBF), and cerebral blood volume (CBV) were calculated. CT angiogram was obtained after IV administration of 75 ml of Omnipaque-350. These images were sent to work station and 3-D volume rendering was performed. One or more of the following dose reduction techniques were utilized: Automated exposure control (AEC), Adjustment of mA and/or kV according to patient size, Use of iterative reconstruction technique such as ASiR, CT scan done according to ALARA and image gently/image wisely. RAPID AI software was utilized on the CT perfusion images to attempt to automatically detect acute large vessel occlusion (LVO) in order to reduce acute stroke treatment times. This exam was also viewed in real time by a physician. Small arterial branch occlusions arent excluded by CT perfusion. Noncontrast CT Head Findings: Several areas of acute subacute infarcts in the right frontal, left parietal, left cerebellar region, and right cerebellar region. No acute hemorrhage. No intra or extra-axial mass or fluid collection. The ventricles are normal in size and configuration without hydrocephalus. The basilar cisterns are patent. Mild generalized cerebral and cerebellar volume loss. Mild nonspecific periventricular hypoattenuation, most commonly seen with chronic small vessel ischemic disease. No soft tissue abnormality seen. Visible sinuses and orbits are normal. The mastoid air cells are clear. CT Angiogram Findings: Moderate bilateral cavernous internal carotid artery atherosclerosis. Normal filling of the proximal bilateral anterior and middle cerebral branches. The vertebral, basilar and posterior cerebral arteries are normal. No arterial occlusion. No aneurysm. No arteriovenous malformation. CT Perfusion Findings: There are small areas of Tmax asymmetry in the left occipital lobe which are likely artifactual, however occlusion of the distal posterior branches are not excluded. IMPRESSION Impression: 1. Small multiple acute to subacute infa rcts in the right frontal, left parietal, left occipital lobes, and bilateral cerebellum, likely embolic etiology. Recommend brain MRI for further assessment. 2. No emergent large vessel occlusion. N o large vessel perfusion abnormality. No indication for acute endovascular intervention. 3. No hemorrhage or mass effect. 4. Mild nonspecific periventricular hypo attenuation, most commonly seen with chronic small vessel ischemic disease. The above findings were communicated by telephone to the code neuro nurse by Dr. Samayoa at 11:12 am on 10/01/2022. The findings were also communicated to Dr. ZAIDA CRUZ and Maureen Leiva RN by the complex care nurse practitioner resident. ATTESTATION STATEMENT: The staff radiologist has personally reviewed the images and dictated, reviewed and/or edited the resident's report. READING SITE: [facility] Zaida Cruz MD G CT ORDERABLES * Stroke CT Head wo contrast (10/01/2022 11:03 AM AMUSEMENT MACHINE MECHANIC) Modality Anatomical Region Laterality Computed Tomography Head Anatomical Location / Laterality Collection Method / Volume Ophelia ection Time Received Time Specimen (Source) 10/01/2022 10:56 AM AMUSEMENT MACHINE MECHANIC Impressions 10/01/2022 12:54 PM AMUSEMENT MACHINE MECHANIC 1. Numerous small cortical infarcts bilaterally, suggestive of embolic etiology. 2. No acute hemorrhage or mass effect. 3. Mild cerebral volume loss. Mild chr onic small vessel ischemic disease. The above findings were communicated by telephone to Dr. ZAIDA CRUZ at 10/01/2022 11:02 AM. ATTESTATION STATEMENT: The staff radiologist has personally reviewed the images and dictated, reviewed and/or edited the resident's report. READING SITE: [address] 10/01/2022 12:54 PM AMUSEMENT MACHINE MECHANIC Patient: HENRIETTA KAM Sex#: F #: 1945 Raj#: [id number] Location: [place] [address] Ordering Provider: ZAIDA CRUZ Procedure Requested: [id number] HEAD WO CONTRAST Reason for Exam: Focal neurological deficit Exam Ordered: 10/01/2022 1044 Begin exam date/time: 10/01/2022 1056 Exam Date/Time: 10/01/[address] HEAD WO CONTRAST DATE: 10/01/2022 11:04 AM INDICATION: Focal neurological deficit. left-sided weakness, NIH 9 TECHNIQUE: Computed tomography images of the head were obtained from skull base to vertex without intravenous contrast. One or more of the following dose reduction techniques were utilized: Automated exposure control (AEC), Adjustment of mA and/or kV according to patient size, Use of iterative reconstruction technique such as ASiR, CT scan done according to ALARA and image gently/image wisely COMPARISON: Concurrent CTA head/neck and perfusion. FINDINGS: Acute to subacute infarcts in the right frontal (series 2, image 22) and left parietal region (series 2, image 19). Additional small infarcts in the left occipital lobe and bilateral cerebellum. No hyperdense vessel to suggest acute thrombus. No acute intracranial hemorrhage. Mild generalized cerebral volume loss. Mild nonspecific periventricular hypoattenuation. Calcified atherosclerosis of the bilateral cavernous and paraclinoid internal carotid arteries and intracranial vertebral arteries. No intra- or extra-axial mass or fluid collection. The ventricles are normal in size, shape, and morphology. The subarachnoid cisterns are patent. The visualized paranasal sinuses are well aerated. The mastoid air cells are clear. The visualized portions of the orbits are normal. No aggressive osseous lesion or fracture. Procedure Note Roldan Samayoa MD - 10/01/2022 Patient: HENRIETTA KAM Sex#: F #: 1945 Raj#: [id number] Location: [place] [address] Ordering Provider: ZAIDA CRUZ Procedure Requested: [id number] HEAD WO CONTRAST Reason for Exam: Focal neurological deficit Exam Ordered: 10/01/2022 1044 Begin exam date/time: 10/01/2022 1056 Exam Date/Time: 10/01/[address] HEAD WO CONTRAST DATE: 10/01/2022 11:04 AM INDICATION: Focal neurological deficit. left-sided weakness, NIH 9 TECHNIQUE: Computed tomography images of the head were obtained from skull base to vertex without intravenous contrast. One or more of the following dose reduction techniques were utilized: Automated exposure control (AEC), Adjustment of mA and/or kV according to patient size, Use of iterative reconstruction technique such as ASiR, CT scan done according to ALARA and image gently/image wisely COMPARISON: Concurrent CTA head/neck and perfusion. FINDINGS: Acute to subacute infarcts in the right frontal (series 2, image 22) and left parietal region (series 2, image 19). Additional small infarcts in the left occipital lobe and bilateral cerebellum. No hyperdense vessel to suggest acute thrombus. No acute intracranial hemorrhage. Mild generalized cerebral volume loss. Mild nonspecific periventricular hypoattenuation. Calcified atherosclerosis of the bilateral cavernous and paraclinoid internal carotid arteries and intracranial vertebral arteries. No intra- or extra-axial mass or fluid collection. The ventricles are normal in size, shape, and morphology. The subarachnoid cisterns are patent. The visualized paranasal sinuses are well aerated. The mastoid air cells are clear. The visualized portions of the orbits are normal. No aggressive osseous lesion or fracture. IMPRESSION 1. Numerous small cortical infarcts jennie aterally, suggestive of embolic etiology. 2. No acute hemorrhage or mass effect. 3. Mild cerebral volume loss. Mild seed yeast operator denilson small vessel ischemic disease. The above findings were communicated by telephone to Dr. ZAIDA CRUZ at 10/01/2022 11:02 AM. ATTESTATION STATEMENT: The staff radiologist has personally reviewed the images and dictated, reviewed and/or edited the resident's report. READING SITE: [facility] Zaida RODRIGUEZ CT ORDERABLES * Thyroid Stimulating Hormone (10/01/2022 10:52 AM AMUSEMENT MACHINE MECHANIC) Pathologist Signature Component Value Ref Test Method Analysis Performed A t Range Time Thyroid Stimulating 4.20 0.55 - 10/01/2022 [facility] Hormone 4.78 11:30 AM uIU/mL AMUSEMENT MACHINE MECHANIC Anatomical Location / Laterality Collection Method / Volume Ophelia ection Time Received Time Specimen (Source) Venipuncture / Unknown 10/01/2022 10:52 AM AMUSEMENT MACHINE MECHANIC 0 10/01/2022 10:56 AM AMUSEMENT MACHINE MECHANIC Blood (Venous) Carmencita Pickett MD LAB BLOOD ORDERABLES [facility]/ZIP Code Phone Number Performing [place] [address] * (ABNORMAL) Hemoglobin A1C (10/01/2022 10:52 AM AMUSEMENT MACHINE MECHANIC) Pathologist Signature Component Value Ref Test Method Analysis Performed A t Range Time Hemoglobin A1C 5.9 (H) 4.0 - 10/02/2022 [facility] 5.6 % 4:07 PM AMUSEMENT MACHINE MECHANIC Comment: Non-diabetic : 4.0-5.6% Prediabetes : 5.7-6.4% Diabetes : >= 6.5% Anatomical Location / Laterality Collection Method / Volume Ophelia ection Time Received Time Specimen (Source) Venipuncture / Unknown 10/01/2022 10:52 AM AMUSEMENT MACHINE MECHANIC 0 10/01/2022 10:56 AM AMUSEMENT MACHINE MECHANIC Blood (Venous) Andrés Ewing RN LAB BLOOD ORDERABLES [facility]/State/ZIP Code Phone Number Performing Address Organization [place], [place] [id number] [place] [address] * (ABNORMAL) Comprehensive Metabolic Panel (10/01/2022 10:52 AM AMUSEMENT MACHINE MECHANIC) Pathologist Signature Component Value Ref Test Method Analysis Performed A t Range Time Sodium 138 136 - 10/01/2022 [facility] 145 11:30 AM mEq/L AMUSEMENT MACHINE MECHANIC Potassium 5.4 (H) 3.4 - 10/01/2022 [facility] 5.1 11:30 AM mEq/L AMUSEMENT MACHINE MECHANIC Chloride 105 98 - 109 10/01/2022 [facility] mEq/L 11:30 AM AMUSEMENT MACHINE MECHANIC Comment: Reference interval updated 10/14/2021. Carbon Dioxide 23 20 - 31 10/01/2022 [facility] mEq/L 11:30 AM AMUSEMENT MACHINE MECHANIC Anion Gap 10 <17 10/01/2022 [facility] mmol/L 11:30 AM AMUSEMENT MACHINE MECHANIC Comment: Reference interval updated 02/18/22. Calcium 8.8 8.3 - 10/01/2022 [facility] 10.6 11:30 AM mg/dL AMUSEMENT MACHINE MECHANIC Glucose 155 (H) 70 - 100 10/01/2022 [facility] mg/dL 11:30 AM AMUSEMENT MACHINE MECHANIC Protein Total Serum 6.9 5.7 - 10/01/2022 [facility] 8.2 g/dL 11:30 AM AMUSEMENT MACHINE MECHANIC Albumin 4.2 3.5 - 10/01/2022 [facility] 5.0 g/dL 11:30 AM AMUSEMENT MACHINE MECHANIC Alkaline Phosphatase 146 44 - 150 10/01/2022 [facility] U/L 11:30 AM AMUSEMENT MACHINE MECHANIC Comment: Reference interval updated 10/29/2021. Alanine 131 (H) 0 - 34 10/01/2022 [facility] Aminotransferase U/L 11:30 AM AMUSEMENT MACHINE MECHANIC Aspartate 139 (H) 0 - 34 10/01/2022 [facility] Aminotransferase U/L 11:30 AM AMUSEMENT MACHINE MECHANIC Bilirubin Total 0.4 0.2 - 10/01/2022 [facility] 1.1 11:30 AM mg/dL AMUSEMENT MACHINE MECHANIC Blood Urea Nitrogen 31 (H) 9 - 23 10/01/2022 [facility] mg/dL 11:30 AM AMUSEMENT MACHINE MECHANIC Creatinine 1.86 (H) 0.55 - 10/01/2022 [facility] 1.02 11:30 AM mg/dL AMUSEMENT MACHINE MECHANIC eGFR 27.6 (L) 60.0 - 10/01/2022 [facility] 200.0 11:30 AM mL/min/1 AMUSEMENT MACHINE MECHANIC .73m*2 Comment: The National Kidney Foundation and the [place] Society of Neph[employer] (NKF-ASN) recommends using the 2020 CKD Epidemiology Collaboration (CKD-EPI) equation to calculate estimated glomerular filtration rate (eGFR). This equation is only applicable to adult patients and removes race as a variable. Estimated GFR calculated with 2020 CKD-EPI equation. Vegetarian diet, extremely high or low muscle mass, and may affect results. Anatomical Location / Laterality Collection Method / Volume Ophelia ection Time Received Time Specimen (Source) Venipuncture / Unknown 10/01/2022 10:52 AM AMUSEMENT MACHINE MECHANIC 0 10/01/2022 10:56 AM AMUSEMENT MACHINE MECHANIC Blood (Venous) Carmencita Pickett MD LAB BLOOD ORDERABLES City/State/ZIP Code Phone Number Performing [place] [address] [facility] [address] [facility] * (ABNORMAL) Complete Blood Count (10/01/2022 10:52 AM AMUSEMENT MACHINE MECHANIC) Pathologist Signature Component Value Ref Test Method Analysis Performed A t Range Time WBC 16.40 (H) 4.00 - 10/01/2022 [facility] 11.00 11:03 AM TH/uL AMUSEMENT MACHINE MECHANIC RBC 3.07 (L) 4.00 - 10/01/2022 [facility] 5.00 11:03 AM mil/uL AMUSEMENT MACHINE MECHANIC Hemoglobin 9.1 (L) 12.0 - 10/01/2022 [facility] 15.0 11:03 AM g/dL AMUSEMENT MACHINE MECHANIC Hematocrit 29 (L) 36 - 45 10/01/2022 [facility] % 11:03 AM AMUSEMENT MACHINE MECHANIC MCV 94 80 - 99 10/01/2022 [facility] fL 11:03 AM AMUSEMENT MACHINE MECHANIC MCH 30 27 - 34 10/01/2022 [facility] pg 11:03 AM AMUSEMENT MACHINE MECHANIC MCHC 32 32 - 36 10/01/2022 [facility] g/dL 11:03 AM AMUSEMENT MACHINE MECHANIC RDW 14.3 9.0 - 10/01/2022 [facility] 14.5 % 11:03 AM AMUSEMENT MACHINE MECHANIC Platelet Count 332 140 - 10/01/2022 [facility] 400 11:03 AM Th/uL AMUSEMENT MACHINE MECHANIC MPV 10.0 9.4 - 10/01/2022 [facility] 12.3 fL 11:03 AM AMUSEMENT MACHINE MECHANIC Nucleated RBCs 0 0 - 0 10/01/2022 [facility] /100 WBC 11:03 AM AMUSEMENT MACHINE MECHANIC Anatomical Location / Laterality Collection Method / Volume Ophelia ection Time Received Time Specimen (Source) Venipuncture / Unknown 10/01/2022 10:52 AM AMUSEMENT MACHINE MECHANIC 0 10/01/2022 10:56 AM AMUSEMENT MACHINE MECHANIC Blood (Venous) Carmencita Pickett MD LAB BLOOD ORDERABLES City/State/ZIP Code Phone Number Performing [place] [address] [place] [address] from Last 3 Months Insurance Type Payer Benefit Subscriber ID Effective Phone Address Plan / Dates Group MEDICARE REPLACEMENT PLAN [facility] [id number] 2022-P [phone] [address] MEDICARE resent [address] [facility] [id number] Advance Directives For more information, please contact: [phone] Date Inactivated Comments Code Status Date Activated Full Code 10/01/2022 10:38 AM Care Teams Start Date End Date Chef French Relationship Specialty 10/02/22 Jennie Holland PCP - General Nurse [address] [place] [address]
--- OUTSIDE RECORDS SUMMARY | 2022-10-10 17:18 | XMS REPORT | Encounter Summary ---
Author Author [facility] Organization [facility] Address Unknown Phone Unavailable Care Team Providers Care Paint Laboratory Technician Name Role Phone Jennie Holland PCP Reason for Referral * Rehabilitation - Outpatient (Routine) - Authorized Diagnoses / Procedures Referred By Contact Referred To [facility] ct Specialty Diagnoses Acute on chronic combined systolic and diastolic congestive heart failure (HCC) S/P TAVR (transcatheter aortic valve replacement) Jer Odonnell MD [address] [place] [id number] Cardiac Rehabilitation Referral ID Status Reason Start Date Expiration Visits Vi sits Date Requested Authorized [id number] Authorized Specialty Services 10/10/2022 04/09/2023 1 1 Required ACCOUNT DIRECTOR * Consultation (Routine) - Authorized Diagnoses / Procedures Referred By Contact [facility] Acute ischemic stroke (HCC) Andrés Ewing RN ANP [address] [place] [phone] Bonnie Sarmiento APRN [address] [phone] Neurology Referral ID Status Reason Start Date Expiration Visits Vi sits Date Requested Authorized [id number] Authorized Specialty Services 10/17/2022 04/02/2023 1 1 Required ACCOUNT DIRECTOR Reason for Visit * Auth/Cert (Routine) Diagnoses / Procedures Referred By Contact Referred To [facility] Specialty Diagnoses CHF Acute hypoxemic respiratory failure (HCC) CHF (congestive heart failure) (HCC) Referral ID Status Reason Start Date Expiration Visits Vi sits Date Requested Authorized [id number] 1 1 Encounter Details Care Team Description Date Type Department Zaida Colby MD [address] [facility] [address] [place] [address] Faizan Wu MD [address] [place] [phone] Michael Norwood MD [address] [place], [place] [id number] Jer Odonnell MD [address] [place], [place] [phone] Acute ischemic stroke (HCC) (Primary Dx) ; Acute hypoxemic respiratory failure (HCC); Restless leg syndrome; Acute on chronic systolic congestive heart failure (HCC); Acute on chronic combined systolic and diastolic congestive heart failure (HCC); S/P TAVR (transcatheter aortic valve replacement); Acute renal insufficiency 10/01/2022 [facility] - Encounter [id number] [facility] 10/10/2022 [place], [place] [id number] Social History Date Tobacco Use Types Packs/Day Years Used Smoking Tobacco: Former Cigarettes Tobacco Cessation: Counseling Given: Not Answered Comments Alcohol Use Standard Drinks/Week Never 0 (1 standard drink = 0.6 o z pure alcohol) Sex Assigned at Date Recorded Not on file documented as of this encounter Last Filed Vital Signs Reading Time Taken Comments Vital Sign 116/52 10/10/2022 7:22 AM KEY ACCOUNT DIRECTOR Blood Pressure 97 10/10/2022 7:22 AM KEY ACCOUNT DIRECTOR Pulse 36.5 C (97.7 F) 10/10/2022 7:22 AM KEY ACCOUNT DIRECTOR Temperature 18 10/10/2022 7:22 AM KEY ACCOUNT DIRECTOR Respiratory Rate 97% 10/10/2022 7:22 AM KEY ACCOUNT DIRECTOR Oxygen Saturation - - Inhaled Oxygen Concentration 60.8 kg (134 lb 1.6 oz) 10/10/2022 4:51 AM KEY ACCOUNT DIRECTOR Weight 157.5 cm (5' 2") 10/01/2022 10:46 AM KEY ACCOUNT DIRECTOR Height 24.53 10/01/2022 10:46 AM KEY ACCOUNT DIRECTOR Body Mass Index documented in this encounter Discharge Instructions * Discharge Instr - Other Orders* Theresa Santoyo RN - 10/05/2022 5:04 PM CST Heart failure reminders: 1. Call cardiology early at the onset of new or worsening symptoms or change in your status. 2. Avoid all NSAIDs (Advil, Aleve, Motrin/ibuprofen, naproxen and Mobic). Tyle nol is safe but if ineffective notify team for safe alternative. 3. Do daily weight and blood pressure and record. Bring log sheet to follow-up appointments for possible medication titration. Call for parameters outside of recommended range as discussed and listed in yellow section of heart failure zo elena. 4. Report abdominal bloating, distention or pain especially if associated with a decrease in appetite or response to water medicine. -If unable to eat a normal meal supplement with nutritional shakes such as Ensu re max, Ensure complete, Premier protein or other advised by team. 5. COVID-19 self-care strategies in the community by masking, social distancing and good handwashing. Stay current on all respiratory vaccines as recommended by team. 6. Exercise and activity under the guidelines of cardiology or cardiac rehab. Be cautious in stress environments and monitor and report stress warning symptom s. -Cluster activity, stop and rest as needed and pace yourself for energy conserv ation . -Report increased fatigue or decrease in your tolerance level to cardiology. 7. Diabetic self-care as recommended by team. Goal A1c is less than 7.0. 8. Follow-up on sleep evaluation and recommended therapy. Should therapy be pr escribed to wear with all sleep including naps and report any difficulties with this therapy or your equipment. 9. Report being dizzy, weak or faint or loss of body fluid that is unexpected. Avoid excess heat environments, be cautious in the bathroom, change positions s lowly. ACCOUNT DIRECTOR * Discharge Instr - Risk Reduction* Erika Sullivan RN - 10/01/2022 12:09 PM CST [facility] Risk Factor Reduction Plan to Decrease the Risk of Future Stroke or TIA Take this sheet to your physician to show treatment recommendations Depression Risk - Goals Plan It is common to experience depression after a stroke. If you experience symptom s of depression, please follow-up with your primary care physician. High Blood Pressure Risk - Goals Numbers Plan Less than 120/80 Last blood pressure BP: 116/52 Medicine Diet & Exercise Atrial Fibrillation Risk - N/A Abnormal lipids (fats in blood) Risk - Goals Numbers Plan Cholesterol less than 180 Triglycerides less than 150 HDL (Good) greater than 40 LDL (Bad) less than 70 * For anyone with Vascular Risk Factors Cholesterol - Cholesterol Date Value Ref Range Status 10/01/2022 115 <200 mg/dL Final Triglycerides - Triglycerides Date Value Ref Range Status 10/01/2022 67 <150 mg/dL Final HDL - HDL Cholesterol Date Value Ref Range Status 10/01/2022 58 >40 mg/dL Final LDL - LDL Cholesterol Date Value Ref Range Status 10/01/2022 43.6 0 - 99 mg/dL Final Medicine Low fat diet Exercise Smoking Risk - N/A Diabetes Risk - Goals Numbers Plan Goal Hemoglobin A1C < 7% ? 9% - Blood sugars are high ? 7% - Blood sugars high sometimes < 7% - Great control Blood sugar less than 120 Non-Diabetic 4.0%-5.6% Pre-Diabetic 5.7%-6.4% Diabetic ? 6.5% Hemoglobin A1C Hemoglobin A1C Date Value Ref Range Status 10/01/2022 5.9 (H) 4.0 - 5.6 % Final Comment: Non-diabetic : 4.0-5.6% Prediabetes : 5.7-6.4% Diabetes : >= 6.5% Last Blood Sugar Glucose Date Value Ref Range Status 10/10/2022 220 (H) 70 - 100 mg/dL Final Medicine / insulin Check blood sugar as directed Diabetic Diet Alcohol use Risk - N/A Weight Management Risk - Goals Numbers Plan BMI less than 25% Waist circumference: Men less than 40 inches Women less than 35 inches Weight - Weight: 60.8 kg (134 lb 1.6 oz) BMI - BMI (Calculated): 22.8 Work to achieve targets Physical Activity Risk - Goal Numbers Plan Stroke patients should have approval by physician prior to beginning an exercise program. Aerobic exercise prior to stroke: {NO/YES:83553} Work to increase to d aily aerobic exercise. Other Risk - Goal Plan Discharge NIH - B.E. F.A.S.T - Call 911 if Stroke Warning Signs Occur Balance Sudden onset of dizziness, discoordination, trouble walking, falls, or c lumsiness. Eyes Sudden onset of blurred vision, visual loss, or changes in visi on. Face Ask the person to smile. Does one side of the face droop? Speech Ask the person to say a simple sentence. Arms Ask the person to raise both arms. Does one arm drift downward? Time If the person shows any of these symptoms, zahida e is important. Call 911. ACCOUNT DIRECTOR * Education* Theresa Santoyo RN - 10/05/2022 4:00 PM CST [facility] Heart Failure Education Note Name: Donnell Diehl Date: 10/05/2022 Time: 4:47 PM Patient seen for Heart Failure education. Chart reviewed and patient interviewed . Entered room and introduced self and purpose of visit to patient and her daug mat Shrestha who was also present with patient's permission. 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 Patient with recent TAVR 09/22/2022 in [facility]. Subsequently developed strokelike symptoms Heart failure ATN and NSTEMI. Echo showed drop in EF which was new diagnosis. Patient receptive to written and verbal information. Usually follows with Dr. Randy kohler at the [facility] in [place], [place]. Provided with heart failu re folder and content, additional handouts on low-sodium cookbook and mitral reg urg. Did verbal review. Type of Heart Failure: HFrEF, systolic and valvular Last Ejection Fraction: (10/01/2022): EF 23%, severe LVD (104), normal RV, TAVR w ith normal function, mild to moderate MR Other risk: CVA, CHF, NSTEMI type II, valvular disease with TAVR, diabetes, HTN, HLD Support/Self Management: Patient is single and has lived in apartment alone. Pl ans to move into a new place with her daughter Josseline who is an RN. Patient had b een independent and has no stairs in her apartment which was a skilled nursing com [facility]. Had safety equipment throughout the facility. Scale: Patient has a scale and states ability to do daily weights. Usual weight is 129 pounds. Current weight 134 pounds and patient is being diuresed. Revie wed all heart failure symptoms, self-care strategies and monitoring. Assistance in Home: As above. Patient did have previous [facility]. Being followed by rehab services to ascertain needed disciplines on discharge. Patient has been independent with cooking, bathing, cleaning her home etc. Ability to follow low salt diet: Reviewed importance of low-sodium diet and adeq uate intake of protein. Patient admits to abdominal distention and fullness and sometimes having change in appetite. Encouraged to utilize nutritional shakes if unable to eat a normal meal but to call cardiology. Patient does utilize low -sodium products and have reviewed more information about targets per meal and p er day by label reading, seasonings to avoid knows that are safe. Referred to c ardiology for fluid recommendations but patient instructed to report unexpected body fluid loss or symptoms of dehydration hypotension and to avoid NSAIDs due t o recent ATN issues. Creatinine more normal at 1.18. Reviewed what items will count as fluid and to drink up to daily allow volume. Prescriptions and medication set up: Patient states ability to obtain meds and i s able to state some the medications she takes. Current on Aldactone, Jardiance but have held beta-elicia and CORIE due to renal or low blood pressure. Transportation to appointments: Transportation by family patient has 3 daughters and a granddaughter that are all supportive. Local daughter Josseline Home patient plans to obtain housing with an granddaughter also local with daughter Donnell 50 minutes away. The following services where consulted to assist with care: No additional consul ts but anticipate will be seen by cardiac rehab and is being followed by social work and care coordination for discharge needs Recommended lifestyle changes and patient's response to recommendations: Agree s: 1. Call cardiology early at the onset of new or worsening symptoms or change in your status. 2. Avoid all NSAIDs (Advil, Aleve, Motrin/ibuprofen, naproxen and Mobic). Tyle nol is safe but if ineffective notify team for safe alternative. 3. Do daily weight and blood pressure and record. Bring log sheet to follow-up appointments for possible medication titration. Call for parameters outside of recommended range as discussed and listed in yellow section of heart failure zo elena. 4. Report abdominal bloating, distention or pain especially if associated with a decrease in appetite or response to water medicine. -If unable to eat a normal meal supplement with nutritional shakes such as Ensu re max, Ensure complete, Premier protein or other advised by team. 5. COVID-19 self-care strategies in the community by masking, social distancing and good handwashing. Stay current on all respiratory vaccines as recommended by team. 6. Exercise and activity under the guidelines of cardiology or cardiac rehab. Be cautious in stress environments and monitor and report stress warning symptom s. -Cluster activity, stop and rest as needed and pace yourself for energy conserv ation . -Report increased fatigue or decrease in your tolerance level to cardiology. 7. Diabetic self-care as recommended by team. Goal A1c is less than 7.0. 8. Follow-up on sleep evaluation and recommended therapy. Should therapy be pr escribed to wear with all sleep including naps and report any difficulties with this therapy or your equipment. 9. Report being dizzy, weak or faint or loss of body fluid that is unexpected. Avoid excess heat environments, be cautious in the bathroom, change positions s lowly. Follow up plan for heart failure management: Anticipate 1 week follow-up appoint ment with cardiology on discharge. Education: Patient and daughter provided copy of Understanding Heart Failure Booklet that h as written information on causes of heart failure, symptoms of heart failure and dehydration, weight monitoring, low sodium diet and fluid restrictions, activi ty guidelines, heart failure medications and tobacco cessation. Reviewed with debby galvan the underlying pathophysiology and cause of their heart failure. Patient a ble to verbalize understanding. Additional handouts as above Risk Factors for Heart Failure: Reviewed the risk factors for heart failure and patients known risk factors f or heart failure. Discussed individual risk reduction opportunities. Symptoms of Heart Failure and dehydration: Reviewed s/s of heart failure- increase in weight of 2 pounds in a day or 5 poun ds in a week, increased edema or abdominal girth, increased dyspnea, orthopnea o r PND. Reviewed s/s of dehydration including decreased urine output or dark urin e, dizziness or extreme fatigue.Patient able to describe signs and symptoms of heart failure and dehydration as well as the importance of seeking medical help if they occur. Diet and Fluid Restriction: Reviewed reason for 2000 mg sodium diet and 2 liter fluid restriction recommenda tions. Provided information regarding sodium content of foods. Reviewed high so dium foods and how to avoid them or substitute better choices.Reviewed sodium co ntent of restaurant foods and how to limit sodium if eating out. Weight Monitoring: Reviewed with patient importance of daily weights. Instructed on weighing at the same time daily, upon rising, after using the bathroom. Instructed to call their provider if weight increases 2 pounds in one day or 5 pounds in a week. Reviewed that new dry weight will be the weight the morning after dismissal using home scale. Activity: As above has been independent with cares. Reviewed stress environment s and warning symptoms, pacing and energy conservation techniques and possible r eferral to cardiac rehab. Reviewed exercise and pacing guidelines with patient. Patient able to verbalize understanding of how to pace daily activities and how to begin a walking/exercis e program. Medications: Reviewed purpose and precautions related to heart failure medications. Reviewed to be sure to check discharge medication list closely and follow the discharge i nstructions. Asked patient to keep a current list of their medications with them at all times. Vaccines: Reviewed importance of staying current on pneumonia , influenza and [place] VID 19 vaccines. Patient is current with Q-flu 06/01/2022, PNA- [id number], PNA-1 [phone], Moderna COVID dose x3 and last dose 07/06/2021. Referred to team for r ecommendations of additional booster. Reviewed importance of limiting alcohol, avoiding tobacco and illicit drugs. Debby galvan was never smoker or drinker or use of drugs. Did have episode of ATN but has normalized creatinine. Cautioned on avoidance of NSAIDs. BP: Patient runs "soft. Reviewed symptoms of dehydration hypotension and what t o do if they occur. Encouraged twice daily logging into bring to follow-up card iology appointments for medication titration. Patient does have an arm cuff. DM: A1c 5.9 (10/01/2022. Patient states does daily blood sugars and has a glucom eter. Has been on metformin but states has frequent diarrhea and referred to li vallejo for recommendations. MIS: States positive diagnosis and was prescribed CPAP in the past unsure of age ncy or settings and has not worn for years. Reviewed benefits and why recommend ed. Patient does admit to RLM, waking with headaches occasionally and daytime s leepiness. Referred to team for recommendations and encouraged if therapy is pr escribed to report intolerance or difficulties with equipment and to wear with a ll sleep including naps. Patient and daughter had no further questions. Time spent in education : 40 minutes Electronically signed by Theresa Santoyo RN 10/05/2022 4:47 PM ACCOUNT DIRECTOR documented in this encounter Medications at Time of Discharge Start Date End Date Medication Sig Dispensed Refills 10/10/2022 acetaminophen (TYLENOL) Take 1-2 0 325 MG tablet tablets (325-650 mg total) by mouth every 6 (six) hours as needed. 10/10/2022 apixaban (ELIQUIS) 5 mg Take 1 tablet 0 tabletIndications: CVA (5 mg total) by mouth 2 (two) times a day. Docusate Sodium 100 MG Take 1 0 capsule capsule (100 mg total) by mouth 2 (two) times a day. DULoxetine (CYMBALTA) 30 Take 1 0 mg capsule capsule (30 mg total) by mouth at bedtime. empagliflozin (JARDIANCE) Take by mouth 0 10 mg tablet daily. 10/11/2022 furosemide (LASIX) 20 MG Take 1 tablet 0 tabletIndications: (20 mg total) peripheral edema due to by mouth chronic heart failure daily. 10/11/2022 loratadine (CLARITIN) 10 Take 1 tablet 0 mg tabletIndications: (10 mg total) allergic rhinitis by mouth daily. 10/10/2022 meclizine (ANTIVERT) 25 Take 1 tablet 0 mg tabletIndications: (25 mg total) vertigo by mouth 3 (three) times a day. metoprolol succinate Take 1 tablet 0 (TOPROL-XL) 50 MG 24 hr (50 mg total) tablet by mouth daily. pantoprazole (PROTONIX) Take 1 tablet 0 40 MG tablet (40 mg total) by mouth every morning. 10/10/2022 polyethylene glycol Take 1 packet 14 each 0 (GLYCOLAX) 17 gram packet (17 g total) by mouth daily as needed. pramipexole (MIRAPEX) 1 Take 1 tablet 0 MG tablet (1 mg total) by mouth at bedtime. pravastatin (PRAVACHOL) Take 1 tablet 0 40 MG tablet (40 mg total) by mouth at bedtime. spironolactone Take 0.5 0 (ALDACTONE) 25 MG tablet tablets (12.5 mg total) by mouth daily. trazodone (DESYREL) 50 MG Take 1 tablet 0 tablet (50 mg total) by mouth nightly. documented as of this encounter Progress Notes * Hailey Benavides RN - 10/10/2022 12:28 PM CST Heart Failure EF 23% (10/01/22). Received order for outpatient cardiac rehab refe rral. Noted per chart that she had recent CVA with significant L/sided weakness. She will be going to acute rehab facility. She will not be able to exercise ind ependently in cardiac rehab class setting in the near future. No referral will b e sent at this time. ACCOUNT DIRECTOR * Jer Odonnell MD - 10/09/2022 3:26 PM CST [facility] Patient Name: Donnell Diehl Account No: [id number] Date of : 1945 Date of Admission: 10/01/2022 10:36 AM Subjective Follow up regarding CVA, CHF, s/p TAVR. No acute changes overnight. Patient seen this morning resting in bed. Having m ultiple bowel movements now. Denied any chest pain or shortness of breath. No nausea or vomiting. No fevers or chills. ROS All other ROS are negative. Objective Vital Signs: Temp: 36.6 C (97.9 F) Pulse: 91 Resp: 18 BP: 100/53 SpO2: 98 % Height: 157.5 cm (5' 2") Weight: 57.3 kg (126 lb 5.2 oz) (pt stated she was unab le to stand) I/O last 24 Hours: In: 780 [P.O.:780] Out: 150 [Urine:150] Physical Exam Gen: Calm and cooperative. HEENT: Head: Normal, normocephalic, atraumatic. CV: Regular rate and rhythm, No murmurs, gallops, or rubs Resp: Clear to auscultation, No wheezing/rales/rhonchi. Abd: Soft, Non-tender, Non-distended, Normal bowel sounds Ext: No edema. Skin: Warm, dry. Neuro: Awake and alert, left upper extremity weakness. I have personally reviewed the patient's vital signs, laboratory/pathology/cultu re results (as indicated), imaging studies (results were not discussed with the performing provider), telemetry, diagnostic tests/studies (results were not disc ussed with the performing provider), current inpatient medications, clinical documentation consultant n otes and data support specialist notes with pertainent findings noted within the assessmen t/plan. I have personally reviewed the patient's past medical, surgical, family, or social history and there were no changes reported. I have personally spoken with the patient and nursing staff regarding this patient's case. Assessment/Plan Ms. Donnell Diehl is a 77 y.o. female who was admitted on 10/01/2022 with com plaint of weakness. Problems addressed with today's visit include: * Acute ischemic stroke (HCC) -Cardioembolic CVA with residual vertigo, left-sided weakness, and visual field deficit. -Evaluated by neurology; appreciate their help. -Imaging showed multifocal acute infarcts involving the bilateral frontoparietal and supra lobes in the bilateral cerebellar hemispheres. Patient additionally had trace type I petechial hemorrhage. -Repeat CT head on 10/08 showed redemonstration of hypodensities with increased s urrounding vasogenic edema consistent with evolving infarcts but no acute hemorr harshil or significant mass effect/midline shift. -Per cardiology, okay to continue with DOAC alone and stop antiplatelets. -After discussing with neurology patient started on oral apixaban for anticoagul ation on 10/08. -Continue PT/OT. -Social for discharge planning. Tentative plans for discharge to acute rehab [facility] tomorrow. Acute on chronic combined systolic and diastolic congestive heart failure (HCC) -Echocardiogram noted EF 23% (up from 10%). -Cardiology following; appreciate their help. -Transitioned to oral furosemide 20 mg daily. -Continue metoprolol, Jardiance, and spironolactone. Losartan 12.5 mg daily yes terday as well but discontinued today due to low blood pressures and PENG. -Needs to follow-up with recovery auditor in [place], [place] and will need to discuss con sideration of ICD therapy if EF remains low. -Daily weights monitor I's and O's. -Telemetry monitoring. Acute renal insufficiency -Creatinine trending up, 1.83 today from 1.3-1.4. -Suspect related to hypotension and diuretic. Hold furosemide tomorrow (already received a dose today). -Renally dose all medications and avoid nephrotoxic agents. -Monitor BMP. S/P TAVR (transcatheter aortic valve replacement) -S/p TAVR on 09/22/22. -Cardiology following; appreciate their help. -With no prior history of coronary disease, cardiology okay with proceeding with DOAC only without aspirin. RLS (restless legs syndrome) -Continue pramipexole. Constipation -Improved. -Continue bowel regimen. Type 2 diabetes mellitus without complication, without long-term current use of insulin ([facility]) -Hemoglobin A1c 5.9. -Continue Jardiance. -Okay to go without Accu-Cheks and sliding scale at this time. See my orders for additional details regarding this patients treatment plan. Expected Discharge Date The patient's predicted discharge date is 10/10/2022, but this doesn't guarantee a discharge on this date. Anticipated Discharge Destination The patient's anticipated discharge destination is Acute Rehab Facility/Unit. Room: [facility]/[place] [address] Diet: Diet-Low Fat/Chol, 2 gm Na (Heart Healthy); Caffeine Allowed VTE Prevention: Appropriate VTE chemical treatment ordered. Appropriate VTE mec hanical treatment ordered. Code Status: Full Code Scheduled Meds: apixaban 5 mg Oral BID atorvastatin 10 mg Oral Nightly empagliflozin 10 mg Oral Daily [START ON 10/11/2022] furosemide 20 mg Oral Daily loratadine 10 mg Oral Daily meclizine 25 mg Oral TID metoprolol succinate 50 mg Oral Daily pantoprazole 40 mg Oral Daily before breakfast pramipexole 1 mg Oral Daily spironolactone 12.5 mg Oral Daily Continuous Infusions: PRN Meds: acetaminophen OR acetaminophen, aluminum-magnesium hydroxide-simethicone, bi sacodyL, dextrose 50% OR dextrose 10%, dextrose 50%, glucagon OR glucago n, glucose, magnesium hydroxide, magnesium sulfate, miconazole nitrate, nitrogly cerin, ondansetron, polyethylene glycol, potassium chloride OR potassium bic arb-citric acid OR potassium chloride in water, senna-docusate Jer Odonnell MD [facility] . ACCOUNT DIRECTOR * Amanda Jacobson RN - 10/08/2022 11:00 PM CST I was not made aware of patient's low blood pressure (unlike NA note states); debby galvan states that she usually has low pressures. Reassessed, patient's pressure has improved slightly; continues to remain asymptomatic and is resting well. ACCOUNT DIRECTOR * Jer Odonnell MD - 10/08/2022 5:18 PM CST [facility] Patient Name: Donnell Diehl Account No: [id number] Date of : 1945 Date of Admission: 10/01/2022 10:36 AM Subjective Follow up regarding CVA, CHF, s/p TAVR. No significant issues overnight. Patient lying in bed today. Feeling tired and trying to get some rest but otherwise doing okay. She denied any pain such as headache, chest pain, abdominal pain. No nausea or vomiting. She remains afebr ile. Had a bowel movement which improved abdominal cramping. No shortness of b reath. ROS All other ROS are negative. Objective Vital Signs: Temp: 36.3 C (97.4 F) Pulse: 89 Resp: 16 BP: 101/50 SpO2: 98 % Height: 157.5 cm (5' 2") Weight: 54.3 kg (119 lb 12.8 oz) I/O last 24 Hours: In: 840 [P.O.:840] Out: 500 [Urine:500] Physical Exam Gen: Calm, cooperative, and in no distress HEENT: Head: Normal, normocephalic, atraumatic. CV: Regular rate and rhythm, No murmurs appreciated. Resp: Clear to auscultation, Breath sounds are equal and symmetric Abd: Soft, Non-tender, Non-distended Ext: No edema Skin: Warm, dry. Neuro: Awake and alert. I have personally reviewed the patient's vital signs, laboratory/pathology/cultu re results (as indicated), imaging studies (results were not discussed with the performing provider), telemetry, diagnostic tests/studies (results were not disc ussed with the performing provider), current inpatient medications, clinical documentation consultant n otsosa, data support specialist notes, prior admission/outpatient notes and prior to admissi on medications with pertainent findings noted within the assessment/plan. I have personally reviewed the patient's past medical, surgical, family, or social his tory and there were no changes reported. I have personally spoken with the patie nt and nursing staff regarding this patient's case. Total time I personally spent for this visit was 50 minutes, which was spent on: preparing to see the patient, performing a medically appropriate examination an d/or evaluation, counseling and educating the patient/family/caregiver, ordering medications, tests, or procedures, referring and communicating with other ross rn progressive care unit, documenting clinical information in the electronic or other health record, independently interpreting results and communicating results to the patient/family/caregiver and care coordination Assessment/Plan Ms. Donnell Diehl is a 77 y.o. female who was admitted on 10/01/2022 with com plaint of weakness. Problems addressed with today's visit include: * Acute ischemic stroke (HCC) -Cardioembolic CVA with residual vertigo, left-sided weakness, and visual field deficit. -Evaluated by neurology; appreciate their help. -Imaging showed multifocal acute infarcts involving the bilateral frontoparietal and supra lobes in the bilateral cerebellar hemispheres. Patient additionally had trace type I petechial hemorrhage. -Repeat CT head today showed redemonstration of hypodensities with increased fortino rounding vasogenic edema consistent with evolving infarcts but no acute hemorrha ge or significant mass effect/midline shift. -Per cardiology, okay to continue with DOAC alone and stop antiplatelets. -Will discuss with neurology repeat CT head results and potentially transition t o oral anticoagulant (likely apixaban) if appropriate. -Continue PT/OT. -Social for discharge planning. Initial plan was to potentially discharge to [facility] rehab facility tomorrow, but per social work bed now will not be available u ntil Monday. Acute on chronic combined systolic and diastolic congestive heart failure (HCC) -Echocardiogram noted EF 23% (up from 10%). -Cardiology following; appreciate their help. -Transitioned to oral furosemide 20 mg daily. -Continue metoprolol, Jardiance, and spironolactone. Losartan 12.5 mg daily add ed as well. -Needs to follow-up with recovery auditor in [place], [place] and will need to discuss con sideration of ICD therapy if EF remains low. -Daily weights monitor I's and O's. -Telemetry monitoring. S/P TAVR (transcatheter aortic valve replacement) -S/p TAVR on 09/22/22. -Cardiology following; appreciate their help. -With no prior history of coronary disease, cardiology okay with proceeding with DOAC only without aspirin when okay to start anticoagulation from neurology sta ndpoint. Pneumonia of both lungs due to infectious organism -Questionable diagnosis of pneumonia on transfer from outside hospital. Patient did have leukocytosis with WBC of 18. -Completed course of cefepime on 10/05. RLS (restless legs syndrome) -Continue pramipexole. Constipation -Improved. -Continue bowel regimen. Type 2 diabetes mellitus without complication, without long-term current use of insulin ([facility]) -Hemoglobin A1c 5.9. -Continue Jardiance. -Okay to go without Accu-Cheks and sliding scale at this time. See my orders for additional details regarding this patients treatment plan. Addendum: Discussed results of CT head with neurology and okay to start oral anticoagulati on from their standpoint. Discontinued aspirin and will start apixaban 5 mg p.o . twice daily this evening. Expected Discharge Date The patient's predicted discharge date is 10/10/2022, but this doesn't guarantee a discharge on this date. Anticipated Discharge Destination The patient's anticipated discharge destination is Acute Rehab Facility/Unit. Room: [place] [address] Diet: Diet-Low Fat/Chol, 2 gm Na (Heart Healthy); Caffeine Allowed VTE Prevention: Appropriate VTE chemical treatment ordered. Appropriate VTE mec hanical treatment ordered. Code Status: Full Code Scheduled Meds: aspirin 81 mg Oral Daily atorvastatin 10 mg Oral Nightly empagliflozin 10 mg Oral Daily furosemide 20 mg Oral Daily heparin (porcine) 5,000 Units Subcutaneous Q8H loratadine 10 mg Oral Daily losartan 12.5 mg Oral Daily meclizine 25 mg Oral TID metoprolol succinate 50 mg Oral Daily pantoprazole 40 mg Oral Daily before breakfast polyethylene glycol 17 g Oral BID pramipexole 1 mg Oral Daily senna-docusate 2 tablet Oral BID spironolactone 12.5 mg Oral Daily Continuous Infusions: PRN Meds: acetaminophen OR acetaminophen, aluminum-magnesium hydroxide-simethicone, bi sacodyL, dextrose 50% OR dextrose 10%, dextrose 50%, docusate sodium, glucag on OR glucagon, glucose, magnesium hydroxide, magnesium sulfate, miconazole nitrate, nitroglycerin, ondansetron, polyethylene glycol, potassium chloride O R potassium bicarb-citric acid OR potassium chloride in water Jer Odonnell MD [facility] . ACCOUNT DIRECTOR * Faizan Wu MD - 10/08/2022 7:18 AM CST Images from the original note were not included. Cardiology Progress Note Hospital Day: 7 Chief complaint: multifocal acute cardio embolic stroke Clinical summary: Ms. Donnell Diehl is a very pleasant 77 yo female with history of severe aortic st enosis s/p recent TAVR (Sep 22, 2022 performed in [facility]), NICM, HFrEF, HTN, D M2 who presented to [facility] with hypoxic respiratory failure an d SOB. She was transferred to [facility] for management of hypoxia related to HF and co ncern for pneumonia. On arrival to [facility], she was found to be profoundly weak on her left side, with le ft sided facial droop, left sided arm and leg weakness and numbness. This is new from her transfer from [facility]. A CODE stroke was called and imaging showed no larg e vessel disease but multiple small areas of infarction. She does have a history of TIA, six weeks ago she had a TIA syndrome that resolved spontaneously. She presented to the OSH with hypoxia requiring NIV, an PENG with Cr 1.93, lactic acidosis of 2.3, elevated NT-proBNP of 3500, HST 4500 and leukocytosis to 18K. CXR showed bilateral infiltrates. She was heparinized and started on empiric ant ibiotics for presumed pneumonia. She has been told that since her TAVR her EF is less than 20% and she has a new diagnosis of HF. She lives in [facility] and reports she has not done well since her TAVR. 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 Home medications: spironolactone 12.5 mg, empagliflozin 10 mg metoprolol succina te 50 mg, lisinopril 5 mg [place] events during this stay: 10/01: acute stroke diagnosed on CT upon arrival 10/05: increasing SOB, CXR, dose of IV lasix 40mg given. Hospital assume primary care. 10/06: started PO diuretic CHANGES IN THE PAST 24 HOURS: Clinical: No events overnight. Still with significant left-sided weakness. No complaints of shortness of breath. Labs/tests/procedures: Cr 1.45 EKG/Telemetry: NSR, HR 94bpm ASSESSMENT & PLAN: Principal Problem: Acute ischemic stroke (HCC) Active Problems: Pneumonia of both lungs due to infectious organism Acute on chronic combined systolic and diastolic congestive heart failure (HCC ) Type 2 diabetes mellitus without complication, without long-term current use o f insulin (HCC) Constipation S/P TAVR (transcatheter aortic valve replacement) RLS (restless legs syndrome) Acute Hypoxic respiratory failure -Saturating well on RA, denies any further episodes of SOB and reports improveme nt when compared to yesterday. -Continue furosemide 20 mg daily -Completed course of Cefepime for management of possible underlying pneumonia Multifocal cerebrovascular accident Recent TAVR at outside hospital -Brain MRI demonstrates multifocal acute infarcts involving bilateral frontal an d parietal and occipital lobes as well as bilateral cerebellar hemispheres, w/ p etechial hemorrhage appreciated in the right frontotemporal and left parietal lo bes -Neuro recommends repeat head CT on 10/08. -No obvious LV thrombus on her echocardiogram and no prior LV thrombus despite h istory of EF 10% *As family reports no prior coronary disease, and no prior VTE, then recommend D OAC only going forward without aspirin Acute on chronic systolic and diastolic heart failure NICM -Patient reports that her cors were clean. Requests have been sent for coronary angiogram -LVEF23% (from 10%) -Plan: transitioned to PO lasix 20mg daily. -GDMT limited due to hypotension. Continue Toprol, jardiance and spironolactone 12.5mg daily -Start losartan 12.5 mg daily -Advise no further increase in metoprolol dosing at this time given recent TAVR -Device: No ICD (unknown) needs to continue GDMT and follow up with her cardiolo gist in [facility] PENG vs CKD -Stable with improving renal function -Reported baseline Cr is 1.1 -continue monitoring Thank you for involving us in the care of this patient. Cardiology will sign of f at this time. Please call us back with any questions or concerns. Baldemar "Sunny" MD [facility] General Planner Internship, PGY-4 Attending Attestation: I, Faizan Wu, have seen and examined this patient. I have reviewed and agr ee with the above note by Dr. Urbano and would add the following remarks: Briefly, Ms. Diehl is a 77 year old woman with a past history of HFrEF (EF 10%), severe aortic stenosis s/p TAVR on 09/22 in [place], [place], NICM, DM II, and HTN who p resented to [facility] with respiratory failure and shortnes s of breath. She was ultimately transferred to [facility] for further management of her heart failure, and en route, she developed left sided weakness and was diagnose d with a stroke. She was evaluated by neurology and was not felt to be a benito te for TPA. She had residual left sided deficits that are slowly improving. She was weaned off oxygen and all IV drips and was transferred to the floor. An echo cardiogram was completed and showed an EF of 20% and a normal functioning TAVR v alve. The etiology of her stroke is unclear, but in the setting of her new strok e, there is concern for a possible LV thrombus that may have embolized (as there was no obvious findings of a thrombus on echo). We would like to start systemic anticoagulation, but given the presence of small hemorrhages on the last CT sca n, we will complete a repeat head CT to ensure stability prior to starting syste [place] anticoagulation. Since transfer out of the ICU, the hospitalist has assumed primary care for this patient. We are wokring on uptitration of her GDMT given her underlying heart f ailure. She continues to work with therapy and has placement goals. She should b e ready for discharge tomorrow. For now, we would recommend continuing PO lasix. Continue metoprolol, jardiance, and spironolactone. Would add losartan 12.5mg d aily. Would be cautious with further increases in her beta elicia in the settin g of her recent TAVR and underlying LBBB (unclear if new or not), but she does h ave a stable/normal MD interval. She will need continued follow up for considera tion of ICD therapy as an outpatient. Given her stability on the above GDMT and plans to discharge tomorrow, cardiolog y will sign off. Please call back with any further questions. I have performed an independent review of the following: EKG Telemetry Echocardiogram I have discussed the case with the following: Another healthcare provider Total time spent on the care of this patient: 35 minutes OBJECTIVE: Vitals: BP: 93/45 Pulse: 83 Temp: 36.4 C (97.6 F) Resp: 16 SpO2: 99 % Patient Vitals for the past 96 hrs: Weight 10/08/22 0629 54.3 kg (119 lb 12.8 oz) 10/07/22 0536 52.6 kg (116 lb) 10/06/22 0451 52.8 kg (116 lb 8 oz) 10/05/22 0512 60.8 kg (134 lb 1.6 oz) Intake/Output Summary (Last 24 hours) at 10/08/2022 0718 Last data filed at 10/07/2022 1800 Gross per 24 hour Intake 780 ml Output 250 ml Net 530 ml ANTONINA Risk Index for in-hospital mortality Age: 77 y.o. BP: 93/45 Pulse: 83 ANTONINA Risk Index Score: 53 <20 is low risk 20-30 is Intermediate >30 is high risk Physical Exam Vitals reviewed. Constitutional: General: She is not in acute distress. Appearance: Normal appearance. She is not diaphoretic. Comments: Frail HENT: Head: Normocephalic and atraumatic. Eyes: Extraocular Movements: Extraocular movements intact. Conjunctiva/sclera: Conjunctivae normal. Neck: Vascular: No JVD. Cardiovascular: Rate and Rhythm: Normal rate and regular rhythm. Heart sounds: No murmur heard. Pulmonary: Effort: Pulmonary effort is normal. Breath sounds: Normal breath sounds. No wheezing or rales. Abdominal: General: Bowel sounds are normal. Palpations: Abdomen is soft. Tenderness: There is no abdominal tenderness. Musculoskeletal: General: No swelling. Normal range of motion. Cervical back: Normal range of motion and neck supple. Skin: General: Skin is warm and dry. Neurological: General: No focal deficit present. Mental Status: She is alert and oriented to person, place, and time. Psychiatric: Mood and Affect: Mood normal. Behavior: Behavior normal. Scheduled medications: aspirin 81 mg Oral Daily atorvastatin 10 mg Oral Nightly empagliflozin 10 mg Oral Daily furosemide 20 mg Oral Daily heparin (porcine) 5,000 Units Subcutaneous Q8H loratadine 10 mg Oral Daily meclizine 25 mg Oral TID metoprolol succinate 50 mg Oral Daily pantoprazole 40 mg Oral Daily before breakfast polyethylene glycol 17 g Oral BID pramipexole 1 mg Oral Daily senna-docusate 2 tablet Oral BID spironolactone 12.5 mg Oral Daily Infusion medications: Temple labs: Recent Labs 10/05/22 0725 10/06/22 0647 10/06/22 0648 10/07/22 0610 10/07/222003 WBC 10.32 8.86 -- 13.27* 11.89* HGB 9.8* 10.5* -- 10.7* 10.0* HCT 32* 34* -- 34* 31* PLT 387 389 -- 445* 378 INR 1.0 -- 1.0 1.0 1.0 Recent Labs 10/05/22 0725 10/06/22 0647 10/07/22 0610 10/07/222003 NA 141 140 136 138 K 4.5 4.3 4.3 4.7 CO2 BUN 24* 34* 37* 36* CREAT 1.18* 1.38* 1.42* 1.45* GLU 116* 198* 217* 170* MG 2.1 2.0 3.0* 2.9* Most Recent Result within the last 7 days Lab Units 10/01/22 1052 ALKALINE PHOSPHATASE U/L 146 PROTEIN TOTAL SERUM g/dL 6.9 ALBUMIN g/dL 4.2 ALANINE AMINOTRANSFERASE U/L 131* ASPARTATE AMINOTRANSFERASE U/L 139* No results found for: BNP No results found for: [id number], JYKTMQMMFB0C, RBPNHYQOD2TC, [id number], TR [id number] Lab Results Component Value Date HGBA1C 5.9 (H) 10/01/2022 GLU 170 (H) 10/07/2022 GLU 217 (H) 10/07/2022 GLU 198 (H) 10/06/2022 ACCOUNT DIRECTOR * Faizan Wu MD - 10/07/2022 11:42 AM CST Images from the original note were not included. Cardiology Progress Note Hospital Day: 6 Chief complaint: multifocal acute cardio embolic stroke Clinical summary: Ms. Donnell Diehl is a very pleasant 77 yo female with history of severe aortic st enosis s/p recent TAVR (Sep 22, 2022 performed in [facility]), NICM, HFrEF, HTN, D M2 who presented to [facility] with hypoxic respiratory failure an d SOB. She was transferred to [facility] for management of hypoxia related to HF and co ncern for pneumonia. On arrival to [facility], she was found to be profoundly weak on her left side, with le ft sided facial droop, left sided arm and leg weakness and numbness. This is new from her transfer from [facility]. A CODE stroke was called and imaging showed no larg e vessel disease but multiple small areas of infarction. She does have a history of TIA, six weeks ago she had a TIA syndrome that resolved spontaneously. She presented to the OSH with hypoxia requiring NIV, an PENG with Cr 1.93, lactic acidosis of 2.3, elevated NT-proBNP of 3500, HST 4500 and leukocytosis to 18K. CXR showed bilateral infiltrates. She was heparinized and started on empiric ant ibiotics for presumed pneumonia. She has been told that since her TAVR her EF is less than 20% and she has a new diagnosis of HF. She lives in [facility] and reports she has not done well since her TAVR. 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 Home medications: spironolactone 12.5 mg, empagliflozin 10 mg metoprolol succina te 50 mg, lisinopril 5 mg [place] events during this stay: 10/01: acute stroke diagnosed on CT upon arrival 10/05: increasing SOB, CXR, dose of IV lasix 40mg given. Hospital assume primary care. 10/06: started PO diuretic CHANGES IN THE PAST 24 HOURS: Clinical: Pt resting comfortably in bed. Reports improvement in SOB with IV lasi x. She continues to not have a BM since last week, hospitalist following. She de nies any sx of SOB, CP, palpitations or orthopnea/PND. Pt reports she has had on going dizziness for several years during allergy season and regularly has to saqib e meclizine. She developed dizziness with head movement during exam today. Labs/tests/procedures: Na 140 K 4.3 Creat 1.38 BNP 1228 EKG/Telemetry: NSR, HR 94bpm ASSESSMENT & PLAN: Principal Problem: Acute ischemic stroke (HCC) Active Problems: Pneumonia of both lungs due to infectious organism Acute on chronic combined systolic and diastolic congestive heart failure (HCC ) Type 2 diabetes mellitus without complication, without long-term current use o f insulin (HCC) Constipation S/P TAVR (transcatheter aortic valve replacement) RLS (restless legs syndrome) Acute Hypoxic respiratory failure -Saturating well on RA, denies any further episodes of SOB and reports improveme nt when compared to yesterday. -Received IV lasix 40mg yesterday, plan to start on low dose PO lasix today. -Completed course of Cefepime for management of possible underlying pneumonia Multifocal cerebrovascular accident Recent TAVR at outside hospital -Brain MRI demonstrates multifocal acute infarcts involving bilateral frontal an d parietal and occipital lobes as well as bilateral cerebellar hemispheres, w/ p etechial hemorrhage appreciated in the right frontotemporal and left parietal lo bes -Neuro recommends repeat head CT on 10/08. -No obvious LV thrombus on her echocardiogram and no prior LV thrombus despite h istory of EF 10% *As family reports no prior coronary disease, and no prior VTE, then recommend D OAC only going forward without aspirin Acute on chroinc systolic and diastolic heart failure NICM -Patient reports that her cors were clean. Requests have been sent for coronary angiogram -LVEF23% (from 10%) -Plan: transition to PO lasix 20mg daily. -GDMT limited due to hypotension. Continue Toprol, jardiance and start spironola ctone 12.5mg daily -Device: No ICD (unknown) needs to continue GDMT and follow up with her cardiolo gist in [facility] PENG vs CKD -Stable with improving renal function -Reported baseline Cr is 1.1 -continue monitoring Attending Attestation: I, Faizan Wu, have seen and examined this patient. I have reviewed and agr ee with the above note by Dr. Keating and would add the following remarks: Briefly, Ms. Diehl is a 77 year old woman with a history of HFrEF (EF 10%), sever e aortic stenosis s/p TAVR on 09/22 in [place], [place], NICM, DM II, and HTN who presen trey to [facility] with respiratory failure and shortness of breath. She was ultimately transferred to [facility] for further management, and en rou te, she developed left sided weakness and was diagnosed with a stroke. She was e valuated by neurology and was not felt to be a candidate for TPA. She had residu al left sided deficits that are slowly improving. She was weaned off oxygen and able to transfer to the floor. An echocardiogram was completed and showed an EF of 20% and a normal functioning TAVR valve. The etiology of her stroke is unclea r, but in the setting of her new stroke, there is a concern for a possible LV th rombus. We would like to start systemic anticoagulation, but given the presence of small hemorrhages on the last CT scan, we will complete a repeat head CT to e nsure stability prior to starting systemic anticoagulation. Since transfer out of the ICU, the hospitalist has assumed primary care for this patient. We are working on uptitrating her GDMT given her underlying heart fail ure. She continues to work with therapy and has placement goals for discharge po ssibly on Monday. For now, we would recommend continuing her PO lasix. Continue metoprolol, jardia nce, and spironolactone. We will continue working on GDMT management prior to shira driscoll. I have performed an independent review of the following: EKG Telemetry I have discussed the case with the following: Family Another healthcare provider Total time spent on the care of this patient: 35 minutes OBJECTIVE: Vitals: BP: 102/61 Pulse: 96 Temp: 36.5 C (97.7 F) Resp: 20 SpO2: 98 % Patient Vitals for the past 96 hrs: Weight 10/07/22 0536 52.6 kg (116 lb) 10/06/22 0451 52.8 kg (116 lb 8 oz) 10/05/22 0512 60.8 kg (134 lb 1.6 oz) 10/04/22 0624 55.5 kg (122 lb 5.7 oz) Intake/Output Summary (Last 24 hours) at 10/07/2022 1142 Last data filed at 10/07/2022 0549 Gross per 24 hour Intake 340 ml Output 300 ml Net 40 ml ANTONINA Risk Index for in-hospital mortality Age: 77 y.o. BP: 102/61 Pulse: 96 ANTONINA Risk Index Score: 56 <20 is low risk 20-30 is Intermediate >30 is high risk Physical Exam Vitals reviewed. Constitutional: General: She is not in acute distress. Appearance: Normal appearance. She is not diaphoretic. Comments: Frail HENT: Head: Normocephalic and atraumatic. Eyes: Extraocular Movements: Extraocular movements intact. Conjunctiva/sclera: Conjunctivae normal. Neck: Vascular: No JVD. Cardiovascular: Rate and Rhythm: Normal rate and regular rhythm. Heart sounds: No murmur heard. Pulmonary: Effort: Pulmonary effort is normal. Breath sounds: Normal breath sounds. No wheezing or rales. Abdominal: General: Bowel sounds are normal. Palpations: Abdomen is soft. Tenderness: There is no abdominal tenderness. Musculoskeletal: General: No swelling. Normal range of motion. Cervical back: Normal range of motion and neck supple. Skin: General: Skin is warm and dry. Neurological: General: No focal deficit present. Mental Status: She is alert and oriented to person, place, and time. Psychiatric: Mood and Affect: Mood normal. Behavior: Behavior normal. Scheduled medications: aspirin 81 mg Oral Daily atorvastatin 10 mg Oral Nightly empagliflozin 10 mg Oral Daily furosemide 20 mg Oral Daily heparin (porcine) 5,000 Units Subcutaneous Q8H loratadine 10 mg Oral Daily meclizine 25 mg Oral TID metoprolol succinate 25 mg Oral Daily pantoprazole 40 mg Oral Daily before breakfast polyethylene glycol 17 g Oral BID pramipexole 1 mg Oral Daily senna-docusate 2 tablet Oral BID Infusion medications: [place] labs: Recent Labs 10/05/22 0725 10/06/22 0647 10/06/22 0648 10/07/22 0610 WBC 10.32 8.86 -- 13.27* HGB 9.8* 10.5* -- 10.7* HCT 32* 34* -- 34* PLT 387 389 -- 445* INR 1.0 -- 1.0 1.0 Recent Labs 10/05/22 0725 10/06/22 0647 10/07/22 0610 NA 141 140 136 K 4.5 4.3 4.3 CO2 BUN 24* 34* 37* CREAT 1.18* 1.38* 1.42* GLU 116* 198* 217* MG 2.1 2.0 3.0* Most Recent Result within the last 7 days Lab Units 10/01/22 1052 ALKALINE PHOSPHATASE U/L 146 PROTEIN TOTAL SERUM g/dL 6.9 ALBUMIN g/dL 4.2 ALANINE AMINOTRANSFERASE U/L 131* ASPARTATE AMINOTRANSFERASE U/L 139* No results found for: BNP No results found for: IXIEIGQISB5C, CASDLFQPYP1Q, [id number], [id number], TR [id number] Lab Results Component Value Date HGBA1C 5.9 (H) 10/01/2022 GLU 217 (H) 10/07/2022 GLU 198 (H) 10/06/2022 GLU 116 (H) 10/05/2022 ACCOUNT DIRECTOR * Michael Norwood MD - 10/07/2022 10:59 AM CST [facility] Patient Name: Donnell Diehl Account No: [id number] Date of : 1945 Date of Admission: 10/01/2022 10:36 AM Subjective 77 y.o. female w/ PMHx TAVR (09/22/22), HFpEF, HTN, DM2, MIS not compliant with CP AP, RLS who presented with CHF, possible PNA and apparently had a CVA during tra nsit. Presented to OSH w/ hypoxia, PENG (Cr 1.93), BNP 3500, WBC 18K. CXR w/ b/l infilt rates. Complicating her presentation is a newly reduced EF of <20% since TAVR. She was started on Abx and transferred to [facility]. On arrival to [facility] from [facility] she was noted to have diffuse L- weakness, imaging showed multiple small areas of infarct. It appears that since her TAVR on 09/22/22, she has persistently been hypotensive and during the night P TA, upon turning over in bed, she noted the left side weak. Seen by neurology and CTH showed Numerous small cortical infarcts bilaterally, s uggestive of embolic etiology. CTA h/perfusion neg for emergent large vessel occlusion or perfusion abnormality . Small multiple acute to subacute infarcts in the right frontal, left parietal, left occipital lobes, and bilateral cerebellum, likely embolic etiology. CTA neck - Beaded appearance to the bilateral upper cervical ICA suggesting fibr omuscular dysplasia Echo with EF 23%, severely dilated LV, akinesis of basal-mid inferior and septal fink with hypokinesis of remaining segments, TAVR with normal function, mild M S with mild to mod MR MRI head Multifocal acute infarcts involving the bilateral frontoparietal and oc cipital lobes and the bilateral cerebellar hemispheres. Pattern suggestive of wa tershed ischemia and/or multivascular territory embolic event. Associated trace type I petechial hemorrhage in the right frontoparietal and left parietal lobes. Trace enhancement in the infarct in the right frontoparietal region which may relate to subacute infarct. Needs repeat CTH on 10/08 to determine if appropriate to start anticoag given hem orrhagic transformation on initial imaging. Swallow eval noted mild pharyngeal dysphagia. MBSS noted ok for regular solids a nd think liquids She was started on Lasix 40 IV but appeared to become rapidly euvolemic and wean ed to room air. Seen by Cardiology and started on plavix/ASA in setting of TAVR. She was in PENG on admission with baseline Cr 1.1. 10/06: noted to have increasing SOB. A dose of IV lasix 40 mg given per Cardiolog y. No BM in 1 week. 10/07: plan for CTH in am Tachycardic with activity. Outside records reviewed: D/t EF 10%, she underwent left and right heart cath and no significant epicardia l coronary artery disease in right dominant system, normal biventricular filling pressures and normal PAP. Found to have severe calcific low flow low gradient A oS with augmentation of mean gradient from 18 mmHg at baseline to 30 mmHg consis tent with contractile reserve. She then underwent transfemoral TAVR With 23 mm SHANIQUE 33 ultra on 09/22/22 ROS Patient had one small BM yesterday but feels she still needs to go. She is havin g abdominal cramping and when the cramping comes, she feels she needs to push She notes improvement in vision and vertigo. Denies palpitations or chest pain, no LE edema Objective Vital Signs: Temp: 36.5 C (97.7 F) Pulse: 96 Resp: 20 BP: 102/61 SpO2: 98 % Height: 157.5 cm (5' 2") Weight: 52.6 kg (116 lb) I/O last 24 Hours: In: - Out: 300 [Urine:300] Physical Exam General: NAD, appears stated age HEENT: No thyromegaly, moist oral mucosa, NC/AT, no carotid bruits pulses, anict alyssa sclerae, PERRL Resp/Chest: Normal in appearance, no respiratory distress or increased WOB, no w heezing, ronchi or crackles, symmetric chest movement CV: RRR, no MRG, pulses palpable and symmetric, no mottling MSK: No clubbing, FROM of extremities, no LE edema. No muscle mass wasting noted , no lumbago, no CVA tenderness on palpation GI: soft, NTND, normoactive BS, no rebound or guarding, no palpable organomegaly , no flank dullness Skin: warm, no jaundice, no rashes, and no ulcers Neuro: left arm flaccid weakness, left leg ataxic, Heme/Lymph/Immuno: No bruising, No LAD, No petechiae I have personally reviewed the patient's vital signs, laboratory/pathology/cultu re results (as indicated), current inpatient medications and data support specialist notes with pertainent findings noted within the assessment/plan. I have personally sp riddhi with the patient, the patient's family/friend and nursing staff regarding t his patient's case. Assessment/Plan Problems addressed with today's visit include: * Acute ischemic stroke (HCC) Cardioembolic CVA with residual vertigo, left sided weakness and visual field de ficit Multifocal acute infarcts involving the bilateral frontoparietal and occipital l obes and the bilateral cerebellar hemispheres. Pattern suggestive of watershed i schemia and/or multivascular territory embolic event. Associated trace type I pe techial hemorrhage in the right frontoparietal and left parietal lobes. Trace enhancement in the infarct in the right frontoparietal region which may relate to subacute infarct. Needs repeat CTH on 10/08 to determine if appropriate to start anticoag given hem orrhagic transformation on initial imaging. Await Cardiology recommendations on when to do with antiplatelets when she is ab le to start anticoagulation Rehab on discharge. Pending insurance auth RLS (restless legs syndrome) Continue mirapex S/P TAVR (transcatheter aortic valve replacement) On 09/22/22 Seen by Cardiology and started on plavix/ASA in setting of TAVR. Constipation No BM 1 week Start senna bid, miralax bid, glycerin supp, MOM and had small BM yesterday Continue management, repeat supp today MOM prn Type 2 diabetes mellitus without complication, without long-term current use of insulin ([facility]) A1c 5.9% though result may be artificially low d/t recent procedure (and associa trey blood loss) Continue Jardiance Stop accuchecks Acute on chronic combined systolic and diastolic congestive heart failure (HCC) Note EF 10% prior to TAVR. Now with EF 23%, severely dilated LV, akinesis of basal-mid inferior and septal fink with hypokinesis of remaining segments, TAVR with normal function, mild MS with mild to mod MR Continue Jardiance, lasix 20 mg po daily, toprol XL 25 mg daily Will need CHF f/u Daily weights Strict I+O Pneumonia of both lungs due to infectious organism Questionable diagnosis of PNA on transfer from OSH. She did have leukocytosis 18 K on presentation to OSH. BCx done on admit to [facility] are NGTD Possibly leukocytosis was stress reaction in setting of respiratory failure and fluid overload Completed last dose of Cefepime on 10/05 as scheduled See my orders for additional details regarding this patients treatment plan. Expected Discharge Date The patient's predicted discharge date is 10/10/2022, but this doesn't guarantee a discharge on this date. Anticipated Discharge Destination The patient's anticipated discharge destination is Acute Rehab Facility/Unit. Room: [facility] [address] Diet: Diet-Low Fat/Chol, 2 gm Na (Heart Healthy); Caffeine Allowed VTE Prevention: Appropriate VTE chemical treatment ordered. Appropriate VTE mec hanical treatment ordered. Code Status: Full Code Scheduled Meds: aspirin 81 mg Oral Daily atorvastatin 10 mg Oral Nightly empagliflozin 10 mg Oral Daily furosemide 20 mg Oral Daily heparin (porcine) 5,000 Units Subcutaneous Q8H loratadine 10 mg Oral Daily meclizine 25 mg Oral TID metoprolol succinate 25 mg Oral Daily pantoprazole 40 mg Oral Daily before breakfast polyethylene glycol 17 g Oral BID pramipexole 1 mg Oral Daily senna-docusate 2 tablet Oral BID Continuous Infusions: PRN Meds: acetaminophen OR acetaminophen, aluminum-magnesium hydroxide-simethicone, bi sacodyL, dextrose 50% OR dextrose 10%, dextrose 50%, docusate sodium, glucag on OR glucagon, glucose, magnesium hydroxide, magnesium sulfate, miconazole nitrate, nitroglycerin, ondansetron, polyethylene glycol, potassium chloride O R potassium bicarb-citric acid OR potassium chloride in water Michael Norwood MD [facility] . ACCOUNT DIRECTOR * Kat Birch RRT - 10/07/2022 5:03 AM CST The patient refused the cpap machine overnight. ACCOUNT DIRECTOR * Neville Watkins APRN - 10/06/2022 11:44 AM CST Images from the original note were not included. Cardiology Progress Note Hospital Day: 5 Chief complaint: multifocal acute cardio embolic stroke Clinical summary: Ms. Donnell Diehl is a very pleasant 77 yo female with history of severe aortic st enosis s/p recent TAVR (Sep 22, 2022 performed in [facility]), HFpEF, HTN, DM2 who presented to [facility] with hypoxic respiratory failure and SOB. She was transferred to [facility] for management of hypoxia related to HF and concern for pneumonia. On arrival to [facility], she was found to be profoundly weak on her left side, with le ft sided facial droop, left sided arm and leg weakness and numbness. This is new from her transfer from [facility]. A CODE stroke was called and imaging showed no larg e vessel disease but multiple small areas of infarction. She does have a history of TIA, six weeks ago she had a TIA syndrome that resolved spontaneously. She presented to the OSH with hypoxia requiring NIV, an PENG with Cr 1.93, lactic acidosis of 2.3, elevated NT-proBNP of 3500, HST 4500 and leukocytosis to 18K. CXR showed bilateral infiltrates. She was heparinized and started on empiric ant ibiotics for presumed pneumonia.She has been told that since her TAVR her EF i s less than 20% and she has a new diagnosis of HF. She lives in [facility] and reports she has not done well since her TAVR.Denis borrero and daughter are nurses and noticed profound symptoms in breathing on 10/01/22. Home medications:spironolactone 12.5 mg,empagliflozin 10 mg metoprolol succi dana 50 mg,lisinopril 5 mg [place] events during this stay: 10/01: acute stroke diagnosed on CT upon arrival 10/05: increasing SOB, CXR, dose of IV lasix 40mg given. Hospital assume primary care. 10/06: started PO diuretic CHANGES IN THE PAST 24 HOURS: Clinical: Pt resting comfortably in bed. Reports improvement in SOB with IV lasi x. She continues to not have a BM since last week, hospitalist following. She de nies any sx of SOB, CP, palpitations or orthopnea/PND. Pt reports she has had on going dizziness for several years during allergy season and regularly has to saqib e meclizine. She developed dizziness with head movement during exam today. Labs/tests/procedures: Na 140 K 4.3 Creat 1.38 BNP 1228 EKG/Telemetry: NSR, HR 94bpm ASSESSMENT & PLAN: Principal Problem: Acute ischemic stroke (HCC) Active Problems: Pneumonia of both lungs due to infectious organism Acute on chronic combined systolic and diastolic congestive heart failure (HCC ) Type 2 diabetes mellitus without complication, without long-term current use o f insulin (HCC) Constipation Acute Hypoxic respiratory failure #Pulmonary edema, resolving -Saturating well on RA, denies any further episodes of SOB and reports improveme nt when compared to yesterday. -Received IV lasix 40mg yesterday, plan to start on low dose PO lasix today. -Completed course of Cefepime for management of possible underlying pneumonia #Multifocal cerebrovascular accident #Recent TAVR at outside hospital-records requested -Neurology consulted - recommends avoiding hypotension, continue ASA and potenti ally resume anticoagulation following repeat head CT on 10/08. With f/u in outpat ient stroke clinic following discharge. -Brain MRI demonstrates multifocal acute infarcts involving bilateral frontal an d parietal and occipital lobes as well as bilateral cerebellar hemispheres -TAVR was completed 9 days prior to admission -There was petechial hemorrhage appreciated in the right frontotemporal and left parietal lobes -Improving neurological deficits -No obvious LV thrombus on her echocardiogram; could consider a cardiac MRI in t he near future -Remains on telemetry with no obvious atrial fibrillation noted -Anticoagulationis indicated but currently on hold due to petechial hemorrhage . Likely this will be recommended after review of repeat CT head on 10/08/22. Dr. Madison aware. -PT/OT consulted - recommend acute rehab. Care progression working on placement. #Acute on chroinc combined systolic and diastolic heart failure, LVEF23% -Denies SOB, abdominal distention or orthopnea on exam toay -Net neg ~4.9 L this admit -Plan: transition to PO lasix 20mg daily -GDMT limited due to hypotension. Continue Toprol. Consider spironolactone 12.5m g daily tomorrow. 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 I have performed an independent review of the following: Telemetry Lab Results I have discussed the case with the following: Another healthcare provider Dr. Keating Expected Discharge Date The patient's predicted discharge date is 10/07/2022, but this doesn't guarantee a discharge on this date. Anticipated Discharge Destination The patient's anticipated discharge destination is Acute Rehab Facility/Unit. OBJECTIVE: Vitals: BP: 115/67 Pulse: (!) 105 Temp: 36.4 C (97.5 F) Resp: 18 SpO2: 97 % Patient Vitals for the past 96 hrs: Weight 10/06/22 0451 52.8 kg (116 lb 8 oz) 10/05/22 0512 60.8 kg (134 lb 1.6 oz) 10/04/22 0624 55.5 kg (122 lb 5.7 oz) 10/03/22 0430 57.9 kg (127 lb 10.3 oz) Intake/Output Summary (Last 24 hours) at 10/06/2022 1144 Last data filed at 10/06/2022 0730 Gross per 24 hour Intake 650 ml Output 1700 ml Net -1050 ml ANTONINA Risk Index for in-hospital mortality Age: 77 y.o. BP: 115/67 Pulse: (!) 105 ANTONINA Risk Index Score: 52 <20 is low risk 20-30 is Intermediate >30 is high risk Physical Exam Vitals reviewed. Constitutional: General: She is not in acute distress. Appearance: Normal appearance. She is not diaphoretic. Comments: Frail HENT: Head: Normocephalic and atraumatic. Eyes: Extraocular Movements: Extraocular movements intact. Conjunctiva/sclera: Conjunctivae normal. Neck: Vascular: No JVD. Cardiovascular: Rate and Rhythm: Normal rate and regular rhythm. Heart sounds: No murmur heard. Pulmonary: Effort: Pulmonary effort is normal. Breath sounds: Normal breath sounds. No wheezing or rales. Abdominal: General: Bowel sounds are normal. Palpations: Abdomen is soft. Tenderness: There is no abdominal tenderness. Musculoskeletal: General: No swelling. Normal range of motion. Cervical back: Normal range of motion and neck supple. Skin: General: Skin is warm and dry. Neurological: General: No focal deficit present. Mental Status: She is alert and oriented to person, place, and time. Psychiatric: Mood and Affect: Mood normal. Behavior: Behavior normal. Scheduled medications: aspirin 81 mg Oral Daily atorvastatin 10 mg Oral Nightly empagliflozin 10 mg Oral Daily heparin (porcine) 5,000 Units Subcutaneous Q8H insulin lispro 1-5 Units Subcutaneous 4 times daily before meals and nightl y loratadine 10 mg Oral Daily meclizine 25 mg Oral TID metoprolol succinate 12.5 mg Oral Daily pantoprazole 40 mg Oral Daily before breakfast polyethylene glycol 17 g Oral Daily polyethylene glycol 17 g Oral BID pramipexole 1 mg Oral Daily senna-docusate 1 tablet Oral Daily Infusion medications: [place] labs: Recent Labs 10/03/22 2346 10/05/22 0725 10/06/22 0647 10/06/22 0648 WBC 9.13 10.32 8.86 -- HGB 8.7* 9.8* 10.5* -- HCT 27* 32* 34* -- PLT 355 387 389 -- INR 1.1 1.0 -- 1.0 Recent Labs 10/03/22 2346 10/05/22 0725 10/06/22 0647 NA 139 141 140 K 3.9 4.5 4.3 CO2 23 23 24 BUN 25* 24* 34* CREAT 1.31* 1.18* 1.38* GLU 112* 116* 198* MG 2.0 2.1 2.0 Most Recent Result within the last 7 days Lab Units 02/18/23 1052 ALKALINE PHOSPHATASE U/L 146 PROTEIN TOTAL SERUM g/dL 6.9 ALBUMIN g/dL 4.2 ALANINE AMINOTRANSFERASE U/L 131* ASPARTATE AMINOTRANSFERASE U/L 139* BNP Date/Time Value Ref Range Status 10/06/2022 0647 1,228 (H) 0 - 100 pg/mL Final No results found for: [id number], [id number], [id number], [id number], TR [id number] Lab Results Component Value Date HGBA1C 5.9 (H) 10/01/2022 GLU 198 (H) 10/06/2022 GLU 116 (H) 10/05/2022 GLU 112 (H) 10/03/2022 ACCOUNT DIRECTOR * Michael Norwood MD - 10/06/2022 8:29 AM CST [facility] Patient Name: Donnell Diehl Account No: [id number] Date of : 1945 Date of Admission: 10/01/2022 10:36 AM Subjective 77 y.o. female w/ PMHx TAVR (09/22/22), HFpEF, HTN, DM2, MIS not compliant with CP AP, RLS who presented with CHF, possible PNA and apparently had a CVA during tra nsit. Presented to OSH w/ hypoxia, PENG (Cr 1.93), BNP 3500, WBC 18K. CXR w/ b/l infilt rates. Complicating her presentation is a newly reduced EF of <20% since TAVR. She was started on Abx and transferred to [facility]. On arrival to [facility] from [facility] she was noted to have diffuse L- weakness, imaging showed multiple small areas of infarct. It appears that since her TAVR on 09/22/22, she has persistently been hypotensive and during the night P TA, upon turning over in bed, she noted the left side weak. Seen by neurology and CTH showed Numerous small cortical infarcts bilaterally, s uggestive of embolic etiology. CTA h/perfusion neg for emergent large vessel occlusion or perfusion abnormality . Small multiple acute to subacute infarcts in the right frontal, left parietal, left occipital lobes, and bilateral cerebellum, likely embolic etiology. CTA neck - Beaded appearance to the bilateral upper cervical ICA suggesting fibr omuscular dysplasia Echo with EF 23%, severely dilated LV, akinesis of basal-mid inferior and septal fink with hypokinesis of remaining segments, TAVR with normal function, mild M S with mild to mod MR MRI head Multifocal acute infarcts involving the bilateral frontoparietal and oc cipital lobes and the bilateral cerebellar hemispheres. Pattern suggestive of wa tershed ischemia and/or multivascular territory embolic event. Associated trace type I petechial hemorrhage in the right frontoparietal and left parietal lobes. Trace enhancement in the infarct in the right frontoparietal region which may relate to subacute infarct. Needs repeat CTH on 10/08 to determine if appropriate to start anticoag given hem orrhagic transformation on initial imaging. Swallow eval noted mild pharyngeal dysphagia. MBSS noted ok for regular solids a nd think liquids She was started on Lasix 40 IV but appeared to become rapidly euvolemic and wean ed to room air. Seen by Cardiology and started on plavix/ASA in setting of TAVR. She was in PENG on admission with baseline Cr 1.1. 10/05: noted to have increasing SOB. A dose of IV lasix 40 mg given per Cardiolog y. No BM in 1 week. ROS Notes that she has vertigo just laying in bed. She also c/o feeling constipated and no BM in 7 days. She notes there is a spot in left eye that is "missing". Sh e denies sOB at this moment, no cough, no chest pain. Does admit hx of MIS but d oesn't use her CPAP d/t feels claustrophobic Objective Vital Signs: Temp: 36.4 C (97.5 F) Pulse: (!) 105 Resp: 18 BP: 115/67 SpO2: 97 % Height: 157.5 cm (5' 2") Weight: 52.8 kg (116 lb 8 oz) I/O last 24 Hours: In: 410 [P.O.:390; I.V.:20] Out: 200 [Urine:200] Physical Exam General: NAD, appears stated age HEENT: No thyromegaly, moist oral mucosa, NC/AT, no carotid bruits pulses, anict alyssa sclerae, PERRL Resp/Chest: Normal in appearance, no respiratory distress or increased WOB, no w heezing, ronchi or crackles, symmetric chest movement CV: RRR, no MRG, pulses palpable and symmetric, no mottling MSK: No clubbing, FROM of extremities, no LE edema. No muscle mass wasting noted , no lumbago, no CVA tenderness on palpation GI: soft, NTND, normoactive BS, no rebound or guarding, no palpable organomegaly , no flank dullness Skin: warm, no jaundice, no rashes, and no ulcers Neuro: left arm flaccid weakness, left leg ataxic, Heme/Lymph/Immuno: No bruising, No LAD, No petechiae I have personally reviewed the patient's vital signs, laboratory/pathology/cultu re results (as indicated), current inpatient medications and data support specialist notes with pertainent findings noted within the assessment/plan. I have personally sp riddhi with the patient, the patient's family/friend and nursing staff regarding t his patient's case. Assessment/Plan Problems addressed with today's visit include: * Acute ischemic stroke (HCC) Cardioembolic CVA with residual vertigo, left sided weakness and visual field de ficit Multifocal acute infarcts involving the bilateral frontoparietal and occipital l obes and the bilateral cerebellar hemispheres. Pattern suggestive of watershed i schemia and/or multivascular territory embolic event. Associated trace type I pe techial hemorrhage in the right frontoparietal and left parietal lobes. Trace enhancement in the infarct in the right frontoparietal region which may relate to subacute infarct. Needs repeat CTH on 10/08 to determine if appropriate to start anticoag given hem orrhagic transformation on initial imaging. For now on ASA and plavix, but once starts anticoagulation, need to discuss with Cardiology antiplatelet management Rehab on discharge RLS (restless legs syndrome) Continue mirapex S/P TAVR (transcatheter aortic valve replacement) On 09/22/22 Seen by Cardiology and started on plavix/ASA in setting of TAVR. Constipation No BM 1 week Start senna bid, miralax bid, glycerin supp, MOM Type 2 diabetes mellitus without complication, without long-term current use of insulin (HCC) A1c 5.9% though result may be artificially low d/t recent procedure (and associa trey blood loss) Continue Jardiance SSI while inpatient - BS well-controlled so far while inpatient Acute on chronic combined systolic and diastolic congestive heart failure (HCC) Note EF 10% prior to TAVR. Now with EF 23%, severely dilated LV, akinesis of basal-mid inferior and septal fink with hypokinesis of remaining segments, TAVR with normal function, mild MS with mild to mod MR Continue Jardiance, lasix 20 mg po daily, toprol XL 12.5 mg daily Will need CHF f/u Daily weights Strict I+O Pneumonia of both lungs due to infectious organism Questionable diagnosis of PNA on transfer from OSH. She did have leukocytosis 18 K on presentation to OSH. BCx done on admit to [facility] are NGTD Possibly leukocytosis was stress reaction in setting of respiratory failure and fluid overload, however now has only 1 day left on 5 day course of empiric Cefep yulisa Completed last dose of Cefepime on 10/05 as scheduled See my orders for additional details regarding this patients treatment plan. Expected Discharge Date The patient's predicted discharge date is 10/07/2022, but this doesn't guarantee a discharge on this date. Anticipated Discharge Destination The patient's anticipated discharge destination is Acute Rehab Facility/Unit. Room: [facility]/[place] [address] Diet: Diet-Low Fat/Chol, 2 gm Na (Heart Healthy); Caffeine Allowed VTE Prevention: Appropriate VTE chemical treatment ordered. Appropriate VTE mec hanical treatment ordered. Code Status: Full Code Scheduled Meds: aspirin 81 mg Oral Daily atorvastatin 10 mg Oral Nightly empagliflozin 10 mg Oral Daily furosemide 20 mg Oral Daily glycerin (adult) 1 suppository Rectal Once heparin (porcine) 5,000 Units Subcutaneous Q8H insulin lispro 1-5 Units Subcutaneous 4 times daily before meals and nightl y loratadine 10 mg Oral Daily magnesium hydroxide 30 mL Oral Once meclizine 25 mg Oral TID metoprolol succinate 12.5 mg Oral Daily pantoprazole 40 mg Oral Daily before breakfast polyethylene glycol 17 g Oral BID polyethylene glycol 17 g Oral BID pramipexole 1 mg Oral Daily senna-docusate 2 tablet Oral BID Continuous Infusions: PRN Meds: acetaminophen OR acetaminophen, aluminum-magnesium hydroxide-simethicone, bi sacodyL, dextrose 50% OR dextrose 10%, dextrose 50%, docusate sodium, glucag on OR glucagon, glucose, magnesium sulfate, miconazole nitrate, nitroglyceri n, ondansetron, polyethylene glycol, potassium chloride OR potassium bicarb- citric acid OR potassium chloride in water Michael Norwood MD [facility] . ACCOUNT DIRECTOR * Neville Pickardnanda, SOIL SAMPLER - 10/05/2022 11:35 AM CST Images from the original note were not included. Cardiology Progress Note Hospital Day: 4 Chief complaint: multifocal acute cardio embolic stroke Clinical summary: Ms. Donnell Diehl is a very pleasant 77 yo female with history of severe aortic st enosis s/p recent TAVR (Sep 22, 2022 performed in [facility]), HFpEF, HTN, DM2 who presented to [facility] with hypoxic respiratory failure and SOB. She was transferred to [facility] for management of hypoxia related to HF and concern for pneumonia. On arrival to [facility], she was found to be profoundly weak on her left side, with le ft sided facial droop, left sided arm and leg weakness and numbness. This is new from her transfer from [facility]. A CODE stroke was called and imaging showed no larg e vessel disease but multiple small areas of infarction. She does have a history of TIA, six weeks ago she had a TIA syndrome that resolved spontaneously. She presented to the OSH with hypoxia requiring NIV, an PENG with Cr 1.93, lactic acidosis of 2.3, elevated NT-proBNP of 3500, HST 4500 and leukocytosis to 18K. CXR showed bilateral infiltrates. She was heparinized and started on empiric ant ibiotics for presumed pneumonia.She has been told that since her TAVR her EF i s less than 20% and she has a new diagnosis of HF. She lives in [facility] and reports she has not done well since her TAVR. 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 Home medications:spironolactone 12.5 mg,empagliflozin 10 mg metoprolol succi dana 50 mg,lisinopril 5 mg [facility] events during this stay: 10/01: acute stroke diagnosed on CT upon arrival 10/05: increasing SOB, CXR, dose of IV lasix 40mg given CHANGES IN THE PAST 24 HOURS: Clinical: Pt resting in the chair with 2 daughters present. Reports feeling incr ease in SOB and audibly SOB. Endorses no appetite and early satiety. Did not sle ep well overnight. On room air currently. Daughters brought up concern with ambe r colored urine, UA ordered. Pt without BM since last Monday. Labs/tests/procedures: Na 141 K 4.5 Creat 1.18 Net - 4.5L EKG/Telemetry: ST, HR 115 and as high as 140bpm ASSESSMENT & PLAN: Principal Problem: Acute ischemic stroke (HCC) Active Problems: Acute hypoxemic respiratory failure (HCC) CHF (congestive heart failure) (HCC) Acute Hypoxic respiratory failure #Pulmonary edema, resolving -Saturating well on RA, however patient endorses feeling more SOB today and rie liv sounds SOB. -Has been without a diuretic for several days now, plan for dose of IV lasix 40m g once. -Continue cefepime for management of possible underlying pneumonia #Multifocal cerebrovascular accident #Recent TAVR at outside hospital-records requested -Neurology continues to follow, appreciate further recommendations -Brain MRI demonstrates multifocal acute infarcts involving bilateral frontal an d parietal and occipital lobes as well as bilateral cerebellar hemispheres -TAVR was completed 9 days prior to admission -There was petechial hemorrhage appreciated in the right frontotemporal and left parietal lobes -Improving neurological deficits -No obvious LV thrombus on her echocardiogram; could consider a cardiac MRI in t he near future -Remains on telemetry with no obvious atrial fibrillation noted -Could consider ALONSO for further evaluation of the TAVR valve, although the gradi ent was within normal limits -Anticoagulationis indicated but currently on hold due to petechial hemorrhage . Likely this will be recommended after review of repeat CT head on 10/08/22. Dr. Los parmar. -PT/OT consulted - recommend acute rehab. Care progression working on placement. #Acute on chroinc combined systolic and diastolic heart failure, LVEF23% -Endorses SOB, early satiety and no appetite. Audibly SOB. -Net neg ~4.5 L this admit -Plan: CXR and IV lasix 40mg once -GDMT limited due to hypotension. Plan to start Toprol 12.5mg today. 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 Consult to hospitalist to assume primary care and assist with management of non- cardiac concerns. I have performed an independent review of the following: Telemetry Echocardiogram Lab Results I have discussed the case with the following: Another healthcare provider Dr. Keating Expected Discharge Date The patient's predicted discharge date is 10/07/2022, but this doesn't guarantee a discharge on this date. Anticipated Discharge Destination The patient's anticipated discharge destination is Acute Rehab Facility/Unit. OBJECTIVE: Vitals: BP: 114/69 Pulse: (!) 112 Temp: 36.7 C (98.1 F) Resp: 18 SpO2: 97 % Patient Vitals for the past 96 hrs: Weight 10/05/22 0512 60.8 kg (134 lb 1.6 oz) 10/04/22 0624 55.5 kg (122 lb 5.7 oz) 10/03/22 0430 57.9 kg (127 lb 10.3 oz) 10/02/22 0540 54.7 kg (120 lb 9.5 oz) Intake/Output Summary (Last 24 hours) at 10/05/2022 1135 Last data filed at 10/05/2022 0900 Gross per 24 hour Intake 720 ml Output 925 ml Net -205 ml ANTONINA Risk Index for in-hospital mortality Age: 77 y.o. BP: 114/69 Pulse: (!) 112 ANTONINA Risk Index Score: 58 <20 is low risk 20-30 is Intermediate >30 is high risk Physical Exam Vitals reviewed. Constitutional: General: She is not in acute distress. Appearance: Normal appearance. She is not diaphoretic. Comments: Frail HENT: Head: Normocephalic and atraumatic. Eyes: Extraocular Movements: Extraocular movements intact. Conjunctiva/sclera: Conjunctivae normal. Cardiovascular: Rate and Rhythm: Regular rhythm. Tachycardia present. Heart sounds: No murmur heard. Pulmonary: Effort: Pulmonary effort is normal. Breath sounds: Normal breath sounds. No wheezing or rales. Abdominal: General: Bowel sounds are decreased. There is no distension. Palpations: Abdomen is soft. Tenderness: There is no abdominal tenderness. Musculoskeletal: General: No swelling. Normal range of motion. Cervical back: Normal range of motion and neck supple. Skin: General: Skin is warm and dry. Neurological: General: No focal deficit present. Mental Status: She is alert and oriented to person, place, and time. Psychiatric: Mood and Affect: Mood normal. Behavior: Behavior normal. Scheduled medications: aspirin 81 mg Oral Daily atorvastatin 10 mg Oral Nightly cefepime 1 g Intravenous Q12H CINDY empagliflozin 10 mg Oral Daily furosemide 40 mg Intravenous Once heparin (porcine) 5,000 Units Subcutaneous Q8H insulin lispro 1-5 Units Subcutaneous 4 times daily before meals and nightl y meclizine 25 mg Oral TID metoprolol succinate 12.5 mg Oral Daily pantoprazole 40 mg Oral Daily before breakfast polyethylene glycol 17 g Oral Daily pramipexole 1 mg Oral Daily senna-docusate 1 tablet Oral Daily Infusion medications: Temple labs: Recent Labs 10/03/22 0442 10/03/22 2346 10/05/22 0725 WBC 8.77 9.13 10.32 HGB 8.5* 8.7* 9.8* HCT 26* 27* 32* PLT 351 355 387 INR 1.1 1.1 1.0 Recent Labs 10/03/22 0442 10/03/22 2346 10/05/22 0725 NA 138 139 141 K 4.0 3.9 4.5 CO2 25 23 BUN 35* 25* 24* CREAT 1.51* 1.31* 1.18* GLU 130* 112* 116* MG 2.1 2.0 2.1 Most Recent Result within the last 7 days Lab Units 10/01/22 1052 ALKALINE PHOSPHATASE U/L 146 PROTEIN TOTAL SERUM g/dL 6.9 ALBUMIN g/dL 4.2 ALANINE AMINOTRANSFERASE U/L 131* ASPARTATE AMINOTRANSFERASE U/L 139* No results found for: BNP No results found for: [id number], [id number], [id number], [id number], TR [id number] Lab Results Component Value Date HGBA1C 5.9 (H) 10/01/2022 GLU 116 (H) 10/05/2022 GLU 112 (H) 10/03/2022 GLU 130 (H) 10/03/2022 ACCOUNT DIRECTOR * Liliam Forrester, FARMWORKER DAIRY - 10/04/2022 3:28 PM CST Images from the original note were not included. Cardiology Progress Note Hospital Day: 3 Chief complaint: multifocal acute cardio embolic stroke Clinical summary: Ms. Donnell Diehl is a very pleasant 77 yo female with history of severe aortic st enosis s/p recent TAVR (Sep 22, 2022 performed in [facility]), HFpEF, HTN, DM2 who presented to [facility] with hypoxic respiratory failure and SOB. She was transferred to [facility] for management of hypoxia related to HF and concern for pneumonia. On arrival to [facility], she was found to be profoundly weak on her left side, with le ft sided facial droop, left sided arm and leg weakness and numbness. This is new from her transfer from [facility]. A CODE stroke was called and imaging showed no larg e vessel disease but multiple small areas of infarction. She does have a history of TIA, six weeks ago she had a TIA syndrome that resolved spontaneously. She presented to the OSH with hypoxia requiring NIV, an PENG with Cr 1.93, lactic acidosis of 2.3, elevated NT-proBNP of 3500, HST 4500 and leukocytosis to 18K. CXR showed bilateral infiltrates. She was heparinized and started on empiric ant ibiotics for presumed pneumonia.She has been told that since her TAVR her EF i s less than 20% and she has a new diagnosis of HF. She lives in [facility] and reports she has not done well since her TAVR. 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 Home medications: spironolactone 12.5 mg, empagliflozin 10 mg metoprolol succina te 50 mg, lisinopril 5 mg Temple events during this stay: 10/01: Acute stroke diagnosed on CT upon arrival CHANGES IN THE PAST 24 HOURS: Clinical: returning to room from swallow study. Family at bedside. Patient denie s chest pain. Has dizziness. Labs/tests/procedures: Cr 1.31 Hgl 8.7 TTE 2/18/23 1. Severely reduced left ventricular systolic function with a calculated eje ction fraction of 23%. 2. Severely dilated left ventricular chamber dimension, LVEDV index = 104 ml /m2. 3. Akinesis of the basal-mid inferior and septal fink with hypokinesis of t he remaining segments. 4. Normal right ventricular size and systolic function. 5. 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 6. Calcific mitral annulus with mild stenosis (mean gradient 6 mmHg at 86 bp m) and [id number]-jzzoeyzd regurgitation. Adebayo MRI 10/01/22 1. Multifocal acute infarcts involving the bilateral frontoparietal and occipita l lobes and the bilateral cerebellar hemispheres. Pattern suggestive of watershe d ischemia and/or multivascular territory embolic event. Associated trace type I petechial hemorrhage in the right frontoparietal and left parietal lobes. Trace enhancement in the infarct in the right frontoparietal region which may relate to subacute infarct. 2. Mild generalized cerebral and cerebellar volume loss. Mild subcortical and deep periventricular white matter FLAIR hyperintensities, a nonspecific finding, most commonly seen with chronic small vessel ischemic disease. ASSESSMENT & PLAN: Principal Problem: Acute ischemic stroke (HCC) Active Problems: Acute hypoxemic respiratory failure (HCC) CHF (congestive heart failure) (HCC) Acute Hypoxic respiratory failure #Pulmonary edema, resolving -Remains saturating well on room air after diuresis -Has been without a diuretic for several days now -Continue cefepime for management of possible underlying pneumonia #Multifocal cerebrovascular accident #Recent TAVR at outside hospital-records requested -Neurology continues to follow, appreciate further recommendations -Brain MRI demonstrates multifocal acute infarcts involving bilateral frontal an d parietal and occipital lobes as well as bilateral cerebellar hemispheres -TAVR was completed 9 days prior to admission -There was petechial hemorrhage appreciated in the right frontotemporal and left parietal lobes -Improving neurological deficits -No obvious LV thrombus on her echocardiogram; could consider a cardiac MRI in t he near future -Remains on telemetry with no obvious atrial fibrillation noted -Could consider ALONSO for further evaluation of the TAVR valve, although the gradi ent was within normal limits -Will likely need anticoagulation if head imaging remains stable in the coming d ays -Anticoagulation is indicated but currently on hold due to petechial hemorrhage. Likely this will be recommended after review of repeat CT head on 10/08/22. Dr Kelvin Madison aware. 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 I have performed an independent review of the following: CT scan MRI I have discussed the case with the following: Family Another healthcare provider A total of 40 of provider time was spent on retrieving results, reviewing result s, interpreting results and providing communication on results and recommendatio ns. Expected Discharge Date The patient's predicted discharge date is 10/07/2022, but this doesn't guarantee a discharge on this date. Anticipated Discharge Destination The patient's anticipated discharge destination is Acute Rehab Facility/Unit. OBJECTIVE: Vitals: BP: 113/66 Pulse: (!) 105 Temp: 36.6 C (97.9 F) Resp: 22 SpO2: 97 % Patient Vitals for the past 96 hrs: Weight 10/04/22 0624 55.5 kg (122 lb 5.7 oz) 10/03/22 0430 57.9 kg (127 lb 10.3 oz) 10/02/22 0540 54.7 kg (120 lb 9.5 oz) 10/01/22 1046 56.6 kg (124 lb 12.5 oz) Intake/Output Summary (Last 24 hours) at 10/04/2022 1529 Last data filed at 10/04/2022 1257 Gross per 24 hour Intake 480 ml Output 865 ml Net -385 ml ANTONINA Risk Index for in-hospital mortality Age: 77 y.o. BP: 113/66 Pulse: (!) 105 ANTONINA Risk Index Score: 55 <20 is low risk 20-30 is Intermediate >30 is high risk Physical Exam Vitals reviewed. Constitutional: Appearance: She is well-developed. HENT: Head: Normocephalic and atraumatic. Cardiovascular: Pulses: Normal pulses. Pulmonary: Effort: Pulmonary effort is normal. Abdominal: General: Bowel sounds are normal. Neurological: Mental Status: She is alert. Motor: Weakness present. Gait: Gait abnormal. Comments: Left hemiparesis Psychiatric: Mood and Affect: Mood normal. Behavior: Behavior is cooperative. Scheduled medications: [Oct] aspirin 81 mg Oral Daily [Oct] atorvastatin 10 mg Oral Nightly [Oct] cefepime 1 g Intravenous Q12H CINDY [Oct] empagliflozin 10 mg Oral Daily [Oct] heparin (porcine) 5,000 Units Subcutaneous Q8H [Oct] insulin lispro 1-5 Units Subcutaneous 4 times daily before meals and nightly [Oct] meclizine 25 mg Oral TID [Oct] pantoprazole 40 mg Oral Daily before breakfast [Oct] polyethylene glycol 17 g Oral Daily [Oct] pramipexole 1 mg Oral Daily [Oct] senna-docusate 1 tablet Oral Daily Infusion medications: [facility] labs: Recent Labs 10/02/22 0017 10/02/22 0524 10/03/22 0442 10/03/22 2346 WBC 10.36 -- 8.77 9.13 HGB 8.6* -- 8.5* 8.7* HCT 27* -- 26* 27* PLT 330 -- 351 355 INR -- 1.1 1.1 1.1 Recent Labs 10/02/22 0017 10/03/22 0442 10/03/22 2346 NA 137 138 139 K 4.2 4.0 3.9 CO2 25 25 23 BUN 35* 35* 25* CREAT 1.76* 1.51* 1.31* GLU 131* 130* 112* MG -- 2.1 2.0 Most Recent Result within the last 7 days Lab Units 10/01/22 1052 ALKALINE PHOSPHATASE U/L 146 PROTEIN TOTAL SERUM g/dL 6.9 ALBUMIN g/dL 4.2 ALANINE AMINOTRANSFERASE U/L 131* ASPARTATE AMINOTRANSFERASE U/L 139* No results found for: BNP No results found for: [id number], [id number], [id number], [id number], TR [id number] Lab Results Component Value Date HGBA1C 5.9 (H) 10/01/2022 GLU 112 (H) 10/03/2022 GLU 130 (H) 10/03/2022 GLU 131 (H) 10/02/2022 ACCOUNT DIRECTOR * Rg Bautista RRT - 10/03/2022 11:30 PM CST Pt refusing CPAP for night ACCOUNT DIRECTOR * Andrés Ewing RN ANP - 10/03/2022 9:03 AM CST NEUROLOGY PROGRESS NOTE Patient: Donnell Diehl : 1945 PCP: Jennie Holland LOS: 2 CHIEF COMPLAINT Stroke SUBJECTIVE She had a bad night. She had difficulty tolerating CPAP. She complains of leg pain. She feels vertiginous with rolling in bed. Still with left side weakness. Less SOA. No chest pain. No new numbness. REVIEW OF SYSTEMS 5 point review of systems negative except as noted in history as above MEDICATIONS NORepinephrine 0.01 mcg/kg/min (10/02/222247) aspirin 81 mg Oral Daily atorvastatin 10 mg Oral Nightly cefepime 1 g Intravenous Q12H CINDY heparin (porcine) 5,000 Units Subcutaneous Q8H insulin lispro 1-5 Units Subcutaneous 4 times daily before meals and nightl y pantoprazole 40 mg Oral Daily before breakfast pramipexole 1 mg Oral Daily acetaminophen OR acetaminophen, aluminum-magnesium hydroxide-simethicone, de xtrose 50% OR dextrose 10%, dextrose 50%, docusate sodium, glucagon OR g lucagon, glucose, magnesium sulfate, miconazole nitrate, nitroglycerin, polyethy zurdo glycol, potassium chloride OR potassium bicarb-citric acid OR potas sium chloride in water PHYSICAL EXAMINATION Patient Vitals for the past 4 hrs: BP Temp Temp src Pulse Resp SpO2 10/03/22 0801 119/74 36.4 C (97.6 F) Oral 100 17 94 % 10/03/22 0700 99/56 -- -- 82 21 93 % 10/03/22 0600 102/50 -- -- 85 22 91 % 10/03/22 0545 100/48 -- -- 88 10 90 % 10/03/22 0530 105/50 -- -- 86 17 91 % 10/03/22 0515 96/54 -- -- 83 17 94 % Systolic (24hrs), Av , Min:77 , Max:119 Diastolic (24hrs), Av, Min:43, Max:78 Ht Readings from Last 1 Encounters: 10/01/22 1.575 m (5' 2") Wt Readings from Last 1 Encounters: 10/03/22 57.9 kg (127 lb 10.3 oz) Body mass index is 23.35 kg/m. General: Ms. Diehl is an elderly female. Head: Oropharynx clear. Head normocephalic, atraumatic. Cardiac: Regular rate and rhythm. Tachy (90s-100s) Lungs: Non-labored. Extremities: No cyanosis or edema. No clear skin lesions noted. Mental status, cognition, and cortical functions: Disoriented to age (stated she was 10 year younger), oriented to name, place and situation. Comprehension intact. Speech is clear and without dysarthria. Cranial nerves: Pupils are equal, round, and reactive to light. Visual maradiaga are full. Extraocular eye movements are intact in all directions. No nystagmus on eye movements. Facial sensation is intact to light touch throughout. Muscles of facial expression are symmetric at rest and with activation. (bett er) No weakness on eyelid or mouth closure. Hearing is intact to finger rubbing bilaterally. Palate elevates symmetrically. Tongue protrudes in the midline and has full excursions. [place] is equal Shoulder shrug is equal Motor: Muscle bulk is normal throughout. Muscle tone is normal throughout. Left hand and arm 1-2/5 LLE 2 prox-4/5 distal RUE/RLE 4/5 Gait and coordination: Gait not observed No dysmetria in bed. Sensation: Light touch sensation is intact throughout. Pin prick decreased in stockingglove distribution of BLE Extinction on the right STUDIES REVIEWED CT Angio Head and Perfusion P Result Date: 10/01/2022 Impression: 1. Small multiple acute to subacute infarcts in the right frontal, l eft parietal, left occipital lobes, and bilateral cerebellum, likely embolic sasha ology. Recommend brain MRI for further assessment. 2. No emergent large vessel o cclusion. No large vessel perfusion abnormality. No indication for acute endovas cular intervention. 3. No hemorrhage or mass effect. 4. Mild nonspecific periven tricular hypoattenuation, most commonly seen with chronic small vessel ischemic disease. The above findings were communicated by telephone to the code neuro blair se by Dr. Samayoa at 11:12 am on 10/01/2022. The findings were also communicated t o Dr. ZAIDA COLBY and Maureen Leiva RN by the conference and event organiser resident. ATTESTATIO N STATEMENT: The staff radiologist has personally reviewed the images and dictat ed, reviewed and/or edited the resident's report. READING SITE: [facility] CT Angio Neck Result Date: 10/01/2022 Impression: 1. No stenosis of the cervical carotid or vertebral arteries. 2. B eaded appearance to the bilateral upper cervical ICA suggesting fibromuscular dy splasia. No associated stenosis, dissection, or pseudoaneurysm. 3. Moderate cer vical spondylosis. ATTESTATION STATEMENT: The staff radiologist has personally r eviewed the images and dictated, reviewed and/or edited the resident's report. R EADING SITE: [facility] MRI Head w wo contrast Result Date: 10/02/2022 1. Multifocal acute infarcts involving the bilateral frontoparietal and occipita l lobes and the bilateral cerebellar hemispheres. Pattern suggestive of watershe d ischemia and/or multivascular territory embolic event. Associated trace type I petechial hemorrhage in the right frontoparietal and left parietal lobes. Trace enhancement in the infarct in the right frontoparietal region which may relate to subacute infarct. 2. Mild generalized cerebral and cerebellar volume loss. M ild subcortical and deep periventricular white matter FLAIR hyperintensities, a nonspecific finding, most commonly seen with chronic small vessel ischemic disea se. READING SITE: [facility]. ATTESTATION STATEMENT: The Staff Radiologist has perso elliot reviewed the images and dictated, reviewed, or edited the final report. Stroke CT Head wo contrast Result Date: 10/01/2022 1. Numerous small cortical infarcts bilaterally, suggestive of embolic etiology . 2. No acute hemorrhage or mass effect. 3. Mild cerebral volume loss. Mild ch ronic small vessel ischemic disease. The above findings were communicated by tel ephone to Dr. ZAIDA COLBY at 10/01/2022 11:02 AM. ATTESTATION STATEMENT: The staff radiologist has personally reviewed the images and dictated, reviewed and/ or edited the resident's report. READING SITE: [facility] LABS REVIEWED Most Recent Result within the last 7 days Lab Units 10/03/22 0442 10/02/22 0017 10/01/22 1222 10/01/22 1052 WBC TH/uL 8.77 < > -- 16.40* HEMOGLOBIN g/dL 8.5* < > -- 9.1* HEMATOCRIT % 26* < > -- 29* PLATELET COUNT Th/uL 351 < > -- 332 % SEGMENTED NEUTROPHILS % 61 < > -- -- % LYMPHOCYTES % 23 < > -- -- % MONOCYTES % 7 < > -- -- % EOSINOPHILS % 8* < > -- -- % BASOPHILS % 1 < > -- -- SODIUM mEq/L 138 < > -- 138 POTASSIUM mEq/L 4.0 < > -- 5.4* CARBON DIOXIDE mEq/L 25 < > -- 23 BLOOD UREA NITROGEN mg/dL 35* < > -- 31* GLUCOSE mg/dL 130* < > -- 155* CREATININE mg/dL 1.51* < > -- 1.86* CALCIUM mg/dL 9.2 < > -- 8.8 ALBUMIN g/dL -- -- -- 4.2 PROTEIN TOTAL SERUM g/dL -- -- -- 6.9 ALKALINE PHOSPHATASE U/L -- -- -- 146 ALANINE AMINOTRANSFERASE U/L -- -- -- 131* ASPARTATE AMINOTRANSFERASE U/L -- -- -- 139* CHOLESTEROL mg/dL -- -- 115 -- TRIGLYCERIDES mg/dL -- -- 67 -- HDL CHOLESTEROL mg/dL -- -- 58 -- LDL CHOLESTEROL mg/dL -- -- 43.6 -- CHOLESTEROL/HDL RATIO -- -- 2.0 -- NON-HDL CHOLESTEROL mg/dL -- -- 57 -- INR 1.1 < > -- 1.2 HEMOGLOBIN A1C % -- -- -- 5.9* < > = values in this interval not displayed. Most Recent Result within the last 7 days Lab Units 10/01/22 1052 THYROID STIMULATING HORMONE uIU/mL 4.20 IMPRESSION Multifocal acute ischemic cardio embolic stroke scattered in all vascular te rritories including he bilateral frontoparietal, occipital and cerebellar lobes, clinically with left hemiparesis waxing and waning, left facial droop waxing / waning extinction, vertigo, gait instability. All in the setting of acute deco mpensated congestive heart failure with reduced ejection fraction, recent TAVR . Petechial hemorrhage in the right frontal parietal and left frontal lob e Diabetes mellitus / Prediabetes Hypertension Acute kidney injury, improving Anemia RECOMMENDATIONS Aspirin for now Repeat Ct head without contrast 10/08/2022, consider restarting anticoagulatio n following results Keep LDL <70, at goal, low dose statin Hgb A1c <7.0% Continue PT/OT/ST Defer need for aspirin or plavix along with oral anticoagulation to Cardiolog y Continue stroke pathway Stroke education ongoing with mutually reached goals Please call with any questions Andrés Ewing, 10/03/2022 9:08 AM [employer]IL SAMPLER[employer] Active Problems: Acute hypoxemic respiratory failure (HCC) CHF (congestive heart failure) (HCC) Acute ischemic stroke (HCC) ACCOUNT DIRECTOR * Faizan Wu MD - 10/03/2022 7:11 AM CST Images from the original note were not included. Cardiology Progress Note Hospital Day: 2 Chief complaint: AHRF Clinical summary: Ms. Donnell Diehl is a very pleasant 77 yo female with history o f severe aortic stenosis s/p recent TAVR (Sep 22, 2022 performed in [facility]), H FpEF, HTN, DM2 who presented to [facility] with hypoxic respirator y failure and SOB. She was transferred to [facility] for management of hypoxia related to HF and concern for pneumonia. On arrival to [facility], she was found to be profoundly weak on her left side, with le ft sided facial droop, left sided arm and leg weakness and numbness. This is new from her transfer from [facility]. A CODE stroke was called and imaging showed no large vessel disease but multiple small areas of infarction. She does have a history of TIA, six weeks ago she had a TIA syndrome that resolved spontaneously. She presented to the OSH with hypoxia requiring NIV, an PENG with Cr 1.93, lactic acidosis of 2.3, elevated NT-proBNP of 3500, HST 4500 and leukocytosis to 18K. CXR showed bilateral infiltrates. She was heparinized and started on empiric ant ibiotics for presumed pneumonia. She has been told that since her TAVR her EF is less than 20% and she has a new diagnosis of HF. She lives in [facility] and reports she has not done well since her TAVR. Home medications: spironolactone 12.5 mg, empagliflozin 10 mg metoprolol succina te 50 mg, lisinopril 5 mg [facility] events during this stay: 10/01: Acute stroke diagnosed on CT upon arrival CHANGES IN THE PAST 24 HOURS: Clinical: NE stopped at around 2AM. She reports feeling fine. No complaints. Vitals BP 119/70s, HR 80s, O2 94% I/O Net -1.0L (Total UOP 1.4L) Labs/tests/procedures: Cr 1.5 (from 1.7 and 1.8) WBC 8 (from 10 and peak of 16) EKG/Telemetry: Normal Sinus Rhythm, NSVT TTE 10/01/22 1. Severely reduced left ventricular systolic function with a calculated eject ion fraction of 23%. 2. Severely dilated left ventricular chamber dimension, LVEDV index = 104 ml/m 2. 3. Akinesis of the basal-mid inferior and septal fink with hypokinesis of the remaining segments. 4. Normal right ventricular size and systolic function. 5. TAVR aortic valve replacement with normal function (mean gradient 6 mmHg, D I 0.85, no regurgitation). 6. Calcific mitral annulus with mild stenosis (mean gradient 6 mmHg at 86 bpm) and [id number] regurgitation. [facility] MRI 10/01/22 1. Multifocal acute infarcts involving the bilateral frontoparietal and occipita l lobes and the bilateral cerebellar hemispheres. Pattern suggestive of watershe d ischemia and/or multivascular territory embolic event. Associated trace type I petechial hemorrhage in the right frontoparietal and left parietal lobes. Trace enhancement in the infarct in the right frontoparietal region which may relate to subacute infarct. 2. Mild generalized cerebral and cerebellar volume loss. Mild subcortical and d eep periventricular white matter FLAIR hyperintensities, a nonspecific finding, most commonly seen with chronic small vessel ischemic disease. ASSESSMENT & PLAN: Active Problems: Acute hypoxemic respiratory failure (HCC) CHF (congestive heart failure) (HCC) Acute ischemic stroke (HCC) Bilateral multifocal acute infarcts - Found to have profound left sided weakness and facial droop on arrival. CODE tomas delgado called and shown to have multiple areas of infarction. - Believed to be cardioembolic (no Afib, but reduced LVEF) - ASA continued, Statin continued - Clopidogrel given 10/02 but given petechial hemorrhages on brain MRI, further c lopidogrel held - Neurology following: Recommendations for anticoagulation starting September h - likely will start DOAC monotherapy given her age Shock (resolved) - lactate wnl, levophed for MAP goal 70 to maintain perfusion in setting of infa rct, suspect 2/2 over diuresis with 2.2L UOP past 24 hours. - Now off NE Acute on chronic systolic heart failure (resolved) - ACC/AHA stage C - EF of 22% - GDMT: restart home empagliflozin. No BB (previously on metoprolol) given LBBB and recent NE requirements. Hold off on ACEi/ARB/ARN and MRA given renal functio n, as well as BP target post stroke. - Diuretics: Compensated, no diuretics at this time Severe aortic stenosis s/p TAVR LBBB - TTE shows normal TAVR gradient and minimal paravalvular leak (mean gradient 6m mHg) *Will look for OSH records to assess if she had LBBB previously Elevated troponin - HST elevated at OSH to 4500 in the setting of recent TAVR, AHRF and PENG. [place] wilson denies any anginal symptoms. 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 ECG non-ischemic with partial LBBB. - ASA and statin continued * Records from [facility] requested for any coronary imaging prior to TAVR Acute tubular necrosis and acute renal injury - Cr baseline had been 1.1 - Following TAVR she has had a persistently elevated Cr. - Will continue to monitor #DM2 - A1c 5.9, SGLT2i #HTN - holding agents allowing for permissive HTN #HLD - continue statin #Anemia - Hgb 9 - no known prior, iron studies pending, denies bleeding issues DVT - subQ heparin CODE - FULL Disposition: transition to floors if remains stable Jane Keating Planner Internship Attending Attestation: I, Faizan Wu, have seen and examined this patient. I have reviewed and agr ee with the above note by Dr. Keating and would add the following remarks: Briefly, Ms. Mahajan is a 77-year-old woman with a recent TAVR completed in [facility] on 09/22/2022, reported chronic systolic heart failure, diabetes who initially pr esented to an outside hospital with a worsening heart failure exacerbation requi ring BiPAP. The patient overall presented to her local hospital with complaints of worsening shortness of breath. She was found to be hypoxemic and started on oxygen therapy. She demonstrated a leukocytosis, mildly elevated lactic acid, elevated NT proBNP, and congestion on the chest x-ray. A high-sensitivity tropo paolo was elevated at 4500. She required BiPAP and had low-normal blood pressures . She was transferred to [facility] for further management of heart failure. Immediat sherly after presentation to this hospital, she was found to have profound left-roula ed weakness and a facial droop with loss in sensation. The timing of the onset of the symptoms was unknown, and could have occurred during transport. A code s troke was called and a head CT demonstrated acute to subacute infarcts in the ri ght and left parietal region. A CT angiogram of the head and neck demonstrated multiple small acute to subacute infarcts in the right frontal, left parietal, l eft occipital, right cerebellar regions consistent with an embolic etiology. Th ere were no high-grade stenoses or arterial occlusions to indicate intervention. An echocardiogram is completed which showed overall normal functioning TAVR va lve. Since admission, the patient reports that her shortness of breath overall has im proved slightly. She continues to have left-sided weakness symptoms that are gr adually improving slowly. She has been evaluated by neurology with recommendati ons to start anticoagulation in several days if repeat head imaging is stable. #Acute Hypoxic respiratory failure #Pulmonary edema, resolving -Remains saturating well on room air after diuresis -Has been without a diuretic for several days now -Continue cefepime for management of possible underlying pneumonia #Multifocal cerebrovascular accident #Recent TAVR at outside hospital -Neurology continues to follow, appreciate further recommendations -Brain MRI demonstrates multifocal acute infarcts involving bilateral frontal an d parietal and occipital lobes as well as bilateral cerebellar hemispheres -TAVR was completed 9 days prior to admission -There was petechial hemorrhage appreciated in the right frontotemporal and left parietal lobes -Improving neurological deficits -No obvious LV thrombus on her echocardiogram; could consider a cardiac MRI in t he near future -Remains on telemetry with no obvious atrial fibrillation noted -Could consider ALONSO for further evaluation of the TAVR valve, although the gradi ent was within normal limits -Will likely need anticoagulation if head imaging remains stable in the coming d ays -PT/OT for placement goals #Acute on chroinc combined systolic and diastolic heart failure, LVEF23% -Remains euvolemic on exam -Holding GDMT due to low blood pressures and recent stroke -We will continue to monitor #PENG: -Stable with improving renal function -Baseline Cr is 1.1, currently at 1.5 #DM: -Continue SSI I have performed an independent review of the following: EKG Telemetry Echocardiogram I have discussed the case with the following: Family Another healthcare provider Patient is critically ill secondary to: CVA, HF Total non-procedural critical care time: 50 minutes Total time spent on the care of this patient: 50 minutes OBJECTIVE: Vitals: BP: 102/50 Pulse: 85 Temp: 36.3 C (97.4 F) Resp: 22 SpO2: 91 % Patient Vitals for the past 96 hrs: Weight 10/03/22 0430 57.9 kg (127 lb 10.3 oz) 10/02/22 0540 54.7 kg (120 lb 9.5 oz) 10/01/22 1046 56.6 kg (124 lb 12.5 oz) Intake/Output Summary (Last 24 hours) at 10/03/2022 0711 Last data filed at 10/03/2022 0600 Gross per 24 hour Intake 362.8 ml Output 1425 ml Net -1062.2 ml ANTONINA Risk Index for in-hospital mortality Age: 77 y.o. BP: 102/50 Pulse: 85 ANTONINA Risk Index Score: 49 <20 is low risk 20-30 is Intermediate >30 is high risk Physical Exam Constitutional: Appearance: Normal appearance. Comments: Breathing well on room air, A&O x 4 HENT: Head: Normocephalic and atraumatic. Right Ear: External ear normal. Left Ear: External ear normal. Cardiovascular: Rate and Rhythm: Normal rate and regular rhythm. Pulses: Normal pulses. Heart sounds: Normal heart sounds. Pulmonary: Effort: Pulmonary effort is normal. Breath sounds: Normal breath sounds. Abdominal: General: Abdomen is flat. Palpations: Abdomen is soft. Musculoskeletal: Right lower leg: No edema. Left lower leg: No edema. Skin: Capillary Refill: Capillary refill takes less than 2 seconds. Neurological: Mental Status: She is alert. Motor: Weakness present. Comments: 2/5 left upper extremity. Sensation to gross touch intact. 4/5 RUE and bilateral lower extremities. Psychiatric: Mood and Affect: Mood normal. Scheduled medications: aspirin 81 mg Oral Daily atorvastatin 10 mg Oral Nightly cefepime 1 g Intravenous Q12H CINDY heparin (porcine) 5,000 Units Subcutaneous Q8H insulin lispro 1-5 Units Subcutaneous 4 times daily before meals and nightl y pantoprazole 40 mg Oral Daily before breakfast pramipexole 1 mg Oral Daily Infusion medications: NORepinephrine 0.01 mcg/kg/min (10/02/22 3537) [facility] labs: Recent Labs 10/01/22 1052 10/02/22 0017 10/02/22 0524 10/03/22 0442 WBC 16.40* 10.36 -- 8.77 HGB 9.1* 8.6* -- 8.5* HCT 29* 27* -- 26* PLT 332 330 -- 351 INR 1.2 -- 1.1 1.1 Recent Labs 10/01/22 1052 10/02/22 0017 10/03/22 0442 NA 138 137 138 K 5.4* 4.2 4.0 CO2 23 25 25 BUN 31* 35* 35* CREAT 1.86* 1.76* 1.51* GLU 155* 131* 130* MG 2.5 -- 2.1 Most Recent Result within the last 7 days Lab Units 10/01/22 1052 ALKALINE PHOSPHATASE U/L 146 PROTEIN TOTAL SERUM g/dL 6.9 ALBUMIN g/dL 4.2 ALANINE AMINOTRANSFERASE U/L 131* ASPARTATE AMINOTRANSFERASE U/L 139* No results found for: BNP No results found for: [id number], [id number], HRUKQXALN0PW, [id number], TR [id number] Lab Results Component Value Date HGBA1C 5.9 (H) 10/01/2022 GLU 130 (H) 10/03/2022 GLU 131 (H) 10/02/2022 GLU 155 (H) 10/01/2022 ACCOUNT DIRECTOR * Kat Birch RRT - 10/03/2022 4:37 AM CST The patient wore the hospital cpap machine overnight. ACCOUNT DIRECTOR * Yanelis Aguilar - 10/02/2022 2:47 PM CST 10/02/22 1442 SPIRITUAL CARE TIME TRACKER Type of Visit Consult Time Spent in Minutes 20 Provider Name Yanelis Allanazzo Comments MM 10/02/2022 - Courier Delivery Driver responded to a consult for a rapid response for this patient. Pt was with family in the room when I came to visit. Pt shared wi th me that she wa "doing a lot better." She shared that she came by plane (he[place] op[place]) and that the jennifer looked beautiful. She did not feel scared at all. She is grateful for the excellent care she is receiving at [facility]. She told me she is a p racticing Religion and has a lot of people praying for her. I offered prayer to maxime and she graciously accepted. We shared prayer together with her family bhargav michele prayed for healing, and the health and strength of her family. Pt and family w ere all very grateful. Spiritual Care Assessment REFERRAL METHOD Epic Consult REFERRAL SOURCE Rapid Response PRESENT FOR ENCOUNTER Patient;Child;Extended Family Member SPIRITUAL DISTRESS None Identified at this Time DISTRESS Change or Loss WELLBEING INDICATORS Coping;Grateful;Hopeful;Spiritual Well Being;Utilize Suppor t Spiritual Care Intervention and Outcomes INTERVENTIONS Patient Support;Family Support;Caring Presence;Prayer;Reflective L istening;Expression of Feelings/ Beliefs OUTCOMES Able to Share Feelings/Story;Able to cope;Expressed Gratitude;Decreased Anxiety;Uses Support/ Resources;Practice Spirituality EVALUATION Outcomes Met DURATION OF CARE (mins) 20 ACCOUNT DIRECTOR * Zaida Colby MD - 10/02/2022 12:00 PM CST Images from the original note were not included. Cardiology Progress Note Hospital Day: 1 Chief complaint: AHRF Clinical summary: Ms. Donnell Diehl is a very pleasant 77 yo female with history o f severe aortic stenosis s/p recent TAVR (Sep 22, 2022 performed in [facility]), H FpEF, HTN, DM2 who presented to [facility] with hypoxic respirator y failure and SOB. She was transferred to [facility] for management of hypoxia related to HF and concern for pneumonia. On arrival to [facility], she was found to be profoundly weak on her left side, with le ft sided facial droop, left sided arm and leg weakness and numbness. This is new from her transfer from [facility]. A CODE stroke was called and imaging showed no large vessel disease but multiple small areas of infarction. She does have a history of TIA, six weeks ago she had a TIA syndrome that resolved spontaneously. She presented to the OSH with hypoxia requiring NIV, an PENG with Cr 1.93, lactic acidosis of 2.3, elevated NT-proBNP of 3500, HST 4500 and leukocytosis to 18K. CXR showed bilateral infiltrates. She was heparinized and started on empiric ant ibiotics for presumed pneumonia. She has been told that since her TAVR her EF is less than 20% and she has a new diagnosis of HF. She lives in [facility] and reports she has not done well since her TAVR. Home medications - spironolactone 12.5 mg - empagliflozin 10 mg - metoprolol succinate 50 mg - lisinopril 5 mg No past medical history on file. No past surgical history on file. Social History: has no history on file for tobacco use, alcohol use, and drug use. No family history on file. Family History of Premature CAD: No [facility] events during this stay: 10/01: Acute stroke diagnosed on CT upon arrival CHANGES IN THE PAST 24 HOURS: Clinical: Overnight low dose peripheral levophed started for hypotension to 80s/ 50s. Currently on levo .04 with BP of 97/57. Satting upper 90s on 1L. Diagnosed with multifocal acute and subacute stroke yesterday. No complaints, breathing we ll. 2.2L UOP, net negative 1.7L. Labs/tests/procedures: Cr 1.8 to 1.7 WBC 16 --> 10 EKG/Telemetry: Normal Sinus Rhythm, NSVT x 1 TTE 10/01/22 1. Severely reduced left ventricular systolic function [...] gradient 6 mmHg at 86 bpm) and [id number] regurgitation. [facility] MRI 10/01/22 IMPRESSION 1. Multifocal acute infarcts involving the bilateral frontoparietal and occipital lobes and the bilateral cerebellar hemispheres. Pattern suggestive of watershed ischemia and/or multivascular territory embolic event. Associated trace type I petechial hemorrhage in the right frontoparietal and left parietal lobes. Trace enhancement in the infarct in the right frontoparietal region which may relate to subacute infarct. 2. Mild generalized cerebral and cerebellar volume loss. Mild subcortical and deep periventricular white matter FLAIR hyperintensities, a nonspecific finding, most commonly seen with chronic small vessel ischemic disease. ASSESSMENT & PLAN: Active Problems: Acute hypoxemic respiratory failure (HCC) CHF (congestive heart failure) (HCC) Acute ischemic stroke (HCC) # Bilateral multifocal acute infarcts - found to have profound left sided weakne ss and facial droop on arrival. CODE stroke called and shown to have multiple ar eas of infarction. - ASA continued, Statin continued - Neurology consulted. Appreciate recommendations. - Will hold antihypertensives for permissive blood pressures - PT, OT, ST Hypotension - lactate wnl, levophed for MAP goal 70 to maintain perfusion in setting of infa rct, suspect 2/2 over diuresis with 2.2L UOP past 24 hours. - hold diuretics, appears euvolemic now and on room air #AHRF - resolved patient presented to OSH with acute hypoxic respiratory failure requiring NIV wi th initial O2 70%. CXR showed bilateral infiltrates. BNP was elevated and patien t had a leukocytosis. She was treated with IV furosemide and started on antibiot ics for HAP. Respiratory failure is multifactorial with recent TAVR, HFpEF. - hold diuresis - continue antibiotics for now #Elevated troponin - HST elevated at OSH to 4500 in the setting of recent TAVR, AHRF and PENG. Currently denies any anginal symptoms. Most likely this is a type II IL in the setting of recent TAVR and HF decompensation. ECG non-ischemic with partial LBBB. - Records from [facility] requested for any coronary imaging prior to TAVR - Will trend HST - ASA and statin continued - Holding heparin with low suspicion of ACS and CVA - hold BB #Severe aortic stenosis s/p TAVR - TTE shows normal TAVR gradient and minimal paravalvular leak - ASA and statin - start plavix #HFrEF - warm and wet on exam, with EF of 22% - Holding GDMT - appears euvolemic #Acute tubular necrosis and acute renal injury - Cr is 1.86, baseline had been 1 .1; following TAVR she has had a persistently elevated Cr. - Will hold SGLT2, FER and RAASi given acute injury - Will continue to monitor #Lactic acidosis - lactate 2.3--->1.2 #DM2 - A1c pending, holding SGLT2 #HTN - holding agents allowing for permissive HTN #HLD - continue statin #Anemia - Hgb 9 - no known prior, iron studies pending, denies bleeding issues DIET - NPO following CVA DVT - subQ heparin CODE - FULL Not yet discussed with Dr. Colby, attending recovery auditor. Please see attending attestation for final plan. Nael Ledbetter MD Cardiology PGY4 Attending Physician Attestation I, Zaida Colby M.D., have independently seen and examined the patient. Norm pineda reviewed the medical record. I agree with the history, assessment, and plan as outlined in the note of Dr. Ledbetter with the following revisions and/or diane tions. This is a 77-year-old female with TAVR at outside hospital 09/22/2022, reported ch ronic systolic heart failure, type 2 diabetes who was accepted to this facility for congestive heart failure exacerbation requiring BiPAP. She presented to her local hospital with acute hypoxemic respiratory failure. S he demonstrated leukocytosis, mildly elevated lactic acid, elevated NT proBNP an d congestion on chest x-ray. High-sensitivity opponent was elevated at 4500. S he required BiPAP and had low-normal blood pressures. I accepted her onto my se rvice for further evaluation and management of congestive heart failure. She was transferred to the CCU via [facility]. Immediately on presentation she had profound left-sided weakness and facial droop with loss of sensation. This was not communicated to me prior to transfer. This was not communicated on the nursing report prior to transfer. It may have developed during the helicopter f light. Code stroke was activated. Noncontrast head CT demonstrates acute to subacute infarcts in the right frontal and left parietal region. CT angiogram of the head and neck demonstrates multi ple small acute to subacute infarcts in the right frontal, left parietal, left o ccipital, right cerebellar regions consistent with embolic etiology. No high-gr phyllis stenosis or arterial occlusion to indicate intervention. 1. Acute hypoxemic respiratory failure, resolved 2. Pulmonary edema, resolving Saturating well on room air following diuresis. Hold additional diuretics given borderline blood pressures. Was on vancomycin and cefepime. Nose MRSA swab ne gative. DC vancomycin. 3. Multifocal cerebrovascular accident 4. Recent TAVR at outside hospital Neurology consulted. Brain MRI demonstrates multifocal acute infarcts involving the bilateral frontal parietal and occipital lobes as well as the bilateral cer ebellar hemispheres. Pattern suggestive of watershed ischemia versus multi vasc ular territory embolic event. She had a TAVR 9 days prior to admission. Petech ial hemorrhage appreciated in the right frontoparietal and left parietal lobes. This morning, she is able to move her left leg and has a very weak left hand gri p which is better than yesterday. We started a low-dose of norepinephrine to he lp with blood pressure. She was on aspirin on presentation. Clopidogrel was added. She received a dose of clopidogrel today. With the petechial hemorrhage on MRI, I have asked to ho ld the clopidogrel. Will defer to neurology whether it should continue to be he ld or restarted. Echocardiogram performed that did not demonstrate LV apical thrombus. We can co nsider a cardiac MRI when the patient is in a less acute situation. ALONSO can als o be considered to evaluate the TAVR. Her presentation may have been due to TAV R performed earlier this month versus watershed infarct. No atrial fibrillation on telemetry thus far. Request for medical records placed regarding recent TAVR performed, echocardiogr ams, and prior ischemic evaluations. 5. Chronic systolic heart failure, LVEF 23% Currently euvolemic on physical exam. Holding GDMT given lower blood pressures and recent stroke. With initiation of low-dose norepinephrine overnight, we nika cked a repeat lactate this morning that is still normal. 6. Acute kidney injury Baseline serum creatinine reportedly 1.1. Serum creatinine is downtrending but elevated. Monitor urine output and serum electrolytes. 7. Type 2 diabetes SSI 8. GI/DVT PPx Subcu heparin/PPI. We can stop subcutaneous heparin if neurology feels it is ap propriate Physical Exam BP (!) 84/51 | Pulse 86 | Temp 37 C (98.6 F) (Oral) | Resp 20 | Ht 1.575 m (5' 2") | Wt 54.7 kg (120 lb 9.5 oz) | SpO2 95% | BMI 22.06 kg/m General: Patient not in acute distress, responsive. HEENT: Normocephalic, atraumatic. CV: Regular rate and rhythm, normal S1S2, 1/6 right upper sternal border systol ic murmur Pulm: Clear to auscultation bilaterally. Abd: Non-tender, non-distended Ext: No edema Skin: Warm and well-perfused Neuro: Weak left hand gatekeeper. No left arm flexion. Weak left leg movement Zaida Colby M.D. 35 minutes in critical care time were spent in the care of this patient managing potentially life-threatening conditions. OBJECTIVE: Vitals: BP: 97/52 Pulse: 78 Temp: 36.9 C (98.4 F) Resp: 13 SpO2: 95 % Patient Vitals for the past 96 hrs: Weight 10/02/22 0540 54.7 kg (120 lb 9.5 oz) 10/01/22 1046 56.6 kg (124 lb 12.5 oz) Intake/Output Summary (Last 24 hours) at 10/02/2022 0701 Last data filed at 10/02/2022 0400 Gross per 24 hour Intake 521 ml Output 2225 ml Net -1704 ml ANTONINA Risk Index for in-hospital mortality Age: 77 y.o. BP: 97/52 Pulse: 78 ANTONINA Risk Index Score: 48 <20 is low risk 20-30 is Intermediate >30 is high risk Physical Exam Constitutional: Appearance: Normal appearance. Comments: Breathing well on room air, A&O x 4 HENT: Head: Normocephalic and atraumatic. Right Ear: External ear normal. Left Ear: External ear normal. Cardiovascular: Rate and Rhythm: Normal rate and regular rhythm. Pulses: Normal pulses. Heart sounds: Normal heart sounds. Pulmonary: Effort: Pulmonary effort is normal. Breath sounds: Normal breath sounds. Abdominal: General: Abdomen is flat. Palpations: Abdomen is soft. Musculoskeletal: Right lower leg: No edema. Left lower leg: No edema. Skin: Capillary Refill: Capillary refill takes less than 2 seconds. Neurological: Mental Status: She is alert. Motor: Weakness present. Comments: 2/5 left upper extremity. Sensation to gross touch intact. 4/5 RUE and bilateral lower extremities. Psychiatric: Mood and Affect: Mood normal. Scheduled medications: aspirin 81 mg Oral Daily atorvastatin 10 mg Oral Nightly cefepime 1 g Intravenous Q12H CINDY heparin (porcine) 5,000 Units Subcutaneous Q8H insulin lispro 1-5 Units Subcutaneous 4 times daily before meals and nightl y pramipexole 1 mg Oral Daily vancomycin 500 mg Intravenous Q24H Infusion medications: NORepinephrine 0.04 mcg/kg/min (10/02/22 0142) [place] labs: Recent Labs 10/01/22 1052 10/02/22 0017 10/02/22 0524 WBC 16.40* 10.36 -- HGB 9.1* 8.6* -- HCT 29* 27* -- PLT 332 330 -- INR 1.2 -- 1.1 Recent Labs 10/01/22 1052 10/02/22 0017 NA 138 137 K 5.4* 4.2 CO2 23 25 BUN 31* 35* CREAT 1.86* 1.76* GLU 155* 131* MG 2.5 -- Most Recent Result within the last 7 days Lab Units 10/01/22 1052 ALKALINE PHOSPHATASE U/L 146 PROTEIN TOTAL SERUM g/dL 6.9 ALBUMIN g/dL 4.2 ALANINE AMINOTRANSFERASE U/L 131* ASPARTATE AMINOTRANSFERASE U/L 139* No results found for: BNP Troponin I, 0HR HS Date/Time Value Ref Range Status 10/01/2022 1052 3,909 (HH) <=34 pg/mL Final Lab Results Component Value Date GLU 131 (H) 10/02/2022 GLU 155 (H) 10/01/2022 ACCOUNT DIRECTOR * Soniya Callejas MD - 10/02/2022 10:59 AM CST [facility] Neurology Progress Note Subjective: Patient reports that she feels a bit better overall today, although she is notic ing some cramping in the left leg (not painful, just annoying). She has not dev eloped any new neurological symptoms over the past 24 hours. Her daughter feels that her strength has improved slightly and she seems less confused. She is cu rrently on a levophed drip due to persistent hypotension. She denies any lighth eadedness related to BP. Objective: BP (!) 84/51 | Pulse 86 | Temp 37 C (98.6 F) (Oral) | Resp 20 | Ht 1.575 m (5' 2") | Wt 54.7 kg (120 lb 9.5 oz) | SpO2 95% | BMI 22.06 kg/m DVT Prophylaxis: Yes Scheduled Meds: aspirin 81 mg Oral Daily atorvastatin 10 mg Oral Nightly cefepime 1 g Intravenous Q12H CINDY clopidogreL 75 mg Oral Daily heparin (porcine) 5,000 Units Subcutaneous Q8H insulin lispro 1-5 Units Subcutaneous 4 times daily before meals and nightl y pramipexole 1 mg Oral Daily vancomycin 500 mg Intravenous Q24H Continuous Infusions: NORepinephrine 0.02 mcg/kg/min (10/02/22 0930) PRN Meds:.acetaminophen OR acetaminophen, aluminum-magnesium hydroxide-simet hicone, dextrose 50% OR dextrose 10%, dextrose 50%, docusate sodium, glucago n OR glucagon, glucose, magnesium sulfate, miconazole nitrate, nitroglycerin , polyethylene glycol, potassium chloride OR potassium bicarb-citric acid OR potassium chloride in water LAB RESULTS: Results for orders placed or performed during the hospital encounter of 10/01/22 (from the past 24 hour(s)) Lactate Venous WB - Reflex STAT Result Value Ref Range Lactate Venous 1.4 0.0 - 2.0 mmol/L Lipid Panel Result Value Ref Range Cholesterol 115 <200 mg/dL HDL Cholesterol 58 >40 mg/dL Non-HDL Cholesterol 57 <=130 mg/dL Triglycerides 67 <150 mg/dL LDL Cholesterol 43.6 0 - 99 mg/dL Cholesterol/HDL Ratio 2.0 0.0 - 4.5 MRSA Nasal PCR Specimen: NASOPHARYNGEAL SWAB Result Value Ref Range MRSA PCR Not Detected Not Detected Electrocardiogram without magnet Result Value Ref Range QRSd 146 QT 444 QTC 541 ECGHR 89 ECGPR 184 GLUCOSE POC Result Value Ref Range Glucose POC 144 (H) 70 - 100 mg/dL Echo Limited with Doppler and Color Flow if Necessary Result Value Ref Range ECHOCRITICAL Yes, new critical echo findings available for this patient GLUCOSE POC Result Value Ref Range Glucose POC 112 (H) 70 - 100 mg/dL CBC and Diff (manual diff if necessary) Result Value Ref Range WBC 10.36 4.00 - 11.00 TH/uL RBC 2.88 (L) 4.00 - 5.00 mil/uL Hemoglobin 8.6 (L) 12.0 - 15.0 g/dL Hematocrit 27 (L) 36 - 45 % MCV 92 80 - 99 fL MCH 30 27 - 34 pg MCHC 32 32 - 36 g/dL RDW 14.3 9.0 - 14.5 % Platelet Count 330 140 - 400 Th/uL MPV 10.1 9.4 - 12.3 fL Nucleated RBCs 0 0 - 0 /100 WBC % Neutrophils 79 (H) 45 - 78 % % Lymphocytes 12 (L) 15 - 47 % % Monocytes 6 0 - 12 % % Eosinophils 2 0 - 7 % % Basophils 1 0 - 2 % % Imm Grans 1 0 - 1 % # Granulocytes 8.29 (H) 1.70 - 6.80 TH/uL # Lymphocytes 1.19 1.00 - 3.30 TH/uL # Monocytes 0.63 0.20 - 0.90 TH/uL # Eosinophils 0.19 0.00 - 0.40 TH/uL # Basophils 0.08 0.00 - 0.10 TH/uL Basic Metabolic Panel Result Value Ref Range Sodium 137 136 - 145 mEq/L Potassium 4.2 3.4 - 5.1 mEq/L Chloride 103 98 - 109 mEq/L Carbon Dioxide 25 20 - 31 mEq/L Anion Gap 9 <17 mmol/L Calcium 8.8 8.3 - 10.6 mg/dL Glucose 131 (H) 70 - 100 mg/dL Blood Urea Nitrogen 35 (H) 9 - 23 mg/dL Creatinine 1.76 (H) 0.55 - 1.02 mg/dL eGFR 29.5 (L) 60.0 - 200.0 mL/min/1.73m*2 Lactate Venous WB - Reflex STAT Result Value Ref Range Lactate Venous 1.2 0.0 - 2.0 mmol/L Prothrombin Time/INR Result Value Ref Range Protime 14.5 11.4 - 15.0 Sec INR 1.1 0.8 - 1.2 GLUCOSE POC Result Value Ref Range Glucose POC 121 (H) 70 - 100 mg/dL Lactate Venous WB - Reflex STAT Result Value Ref Range Lactate Venous 0.9 0.0 - 2.0 mmol/L Physical Exam: Mental status: The patient is awake, alert, and oriented. She is appropriate a nd attentive. Her speech is fluent without evidence of aphasia Cranial nerves: EOM's are full without nystagmus. The face is symmetric and fa cial sensation is intact throughout. No dysarthria is noted. Sensory: Reduced light touch in the left lower extremity. Normal sensation in the left arm. No extinction noted. Motor: Patient had difficulty lifting the arm fully off the bed. She was able to hold the elbow flexed if I helped her flex. Distal strength is 4-/5 and prox imal is 3-/5. Left leg strength is 3+-4-/5 throughout. Gait: Deferred Most Recent Result within the last 7 days Lab Units 10/02/22 0017 10/01/22 1052 SODIUM mEq/L 137 138 POTASSIUM mEq/L 4.2 5.4* CARBON DIOXIDE mEq/L 25 23 BLOOD UREA NITROGEN mg/dL 35* 31* CREATININE mg/dL 1.76* 1.86* CALCIUM mg/dL 8.8 8.8 ALBUMIN g/dL -- 4.2 PROTEIN TOTAL SERUM g/dL -- 6.9 ALKALINE PHOSPHATASE U/L -- 146 ALANINE AMINOTRANSFERASE U/L -- 131* ASPARTATE AMINOTRANSFERASE U/L -- 139* GLUCOSE mg/dL 131* 155* Most Recent Result within the last 7 days Lab Units 10/02/22 0017 10/01/22 1052 SODIUM mEq/L 137 138 POTASSIUM mEq/L 4.2 5.4* CARBON DIOXIDE mEq/L 25 23 BLOOD UREA NITROGEN mg/dL 35* 31* CREATININE mg/dL 1.76* 1.86* CALCIUM mg/dL 8.8 8.8 ALBUMIN g/dL -- 4.2 PROTEIN TOTAL SERUM g/dL -- 6.9 ALKALINE PHOSPHATASE U/L -- 146 ALANINE AMINOTRANSFERASE U/L -- 131* ASPARTATE AMINOTRANSFERASE U/L -- 139* GLUCOSE mg/dL 131* 155* CT Angio Head and Perfusion P Result Date: 10/01/2022 Impression: 1. Small multiple acute to subacute infarcts in the right frontal, left parietal, left occipital lobes, and bilateral cerebellum, likely embolic etiology. Recommend brain MRI for further assessment. 2. No emergent large vessel occlusion. No large vessel perfusion abnormality. No indication for acute endovascular intervention. 3. No hemorrhage or mass effect. 4. Mild nonspecific periventricular hypoattenuation, most commonly seen with chronic small vessel ischemic disease. The above findings were communicated by telephone to the code neuro nurse by Dr. Samayoa at 11:12 am on 10/01/2022. The findings were also communicated to Dr. ZAIDA COLBY and Maureen Leiva RN by the conference and event organiser resident. ATTESTATION STATEMENT: The staff radiologist has personally reviewed the images and dictated, reviewed and/or edited the resident's report. READING SITE: [facility] CT Angio Neck Result Date: 10/01/2022 Impression: 1. No stenosis of the cervical carotid or vertebral arteries. 2. Beaded appearance to the bilateral upper cervical ICA suggesting fibromuscular dysplasia. No associated stenosis, dissection, or pseudoaneurysm. 3. Moderate cervical spondylosis. ATTESTATION STATEMENT: The staff radiologist has personally reviewed the images and dictated, reviewed and/or edited the resident's report. READING SITE: [facility] MRI Head w wo contrast Result Date: 10/02/2022 1. Multifocal acute infarcts involving the bilateral frontoparietal and occipital lobes and the bilateral cerebellar hemispheres. Pattern suggestive of watershed ischemia and/or multivascular territory embolic event. Associated trace type I petechial hemorrhage in the right frontoparietal and left parietal lobes. Trace enhancement in the infarct in the right frontoparietal region which may relate to subacute infarct. 2. Mild generalized cerebral and cerebellar volume loss. Mild subcortical and deep periventricular white matter FLAIR hyperintensities, a nonspecific finding, most commonly seen with chronic small vessel ischemic disease. READING SITE: [facility] 5. ATTESTATION STATEMENT: The Staff Radiologist has personally reviewed the images and dictated, reviewed, or edited the final report. XR Chest single view frontal Result Date: 10/02/2022 FINDINGS AND IMPRESSION: Lungs: Stable extensive heterogeneous opacities bilaterally. Pleura: Stable small bilateral pleural effusions. No pneumothorax. Heart and Mediastinum: Stable heart and mediastinum. Status post TAVR. Bones and soft tissues: Stable regional skeleton. READING SITE: Home, Due to Covid-19 XR Chest single view frontal Result Date: 10/01/2022 1. Perihilar and bibasilar airspace disease, likely atelectasis and edema. Superimposed infection could appear similar. 2. Moderate right and small left pleural effusions. 3. Cardiomegaly. TAVR. ATTESTATION STATEMENT: The staff radiologist has personally reviewed the images and dictated, reviewed and/or edited the resident's report. READING SITE: Home, due to Covid [address] Head wo contrast Result Date: 10/01/2022 1. Numerous small cortical infarcts bilaterally, suggestive of embolic etiology. 2. No acute hemorrhage or mass effect. 3. Mild cerebral volume loss. Mild chronic small vessel ischemic disease. The above findings were communicated by telephone to Dr. ZAIDA COLBY at 10/01/2022 11:02 AM. ATTESTATION STATEMENT: The staff radiologist has personally reviewed the images and dictated, reviewed and/or edited the resident's report. READING SITE: [facility] Assessment: 1) Left hemiparesis in the setting of severe cardiomyopathy, likely cardioe mbolic stroke - Patient's exam shows nice improvement over the past 24 hours. She has pe rsistent weakness but is nearly able to move the left arm against gravity. With PT and OT, I suspect she will do well in general - I reviewed the MRI brain which reveals multiple scattered infarcts consis tent with embolic strokes. There is a small petechial hemorrhage in the left oc cipital and right frontoparietal regions - ECHO report now shows EF as 23% which still represents a significant incr eased risk for developing thrombus and continued risk for recurrent stroke - For stroke prevention, I recommend full oral anticoagulation to begin on day 7 after the stroke (October 08) if there is no evidence of hemorrhage on a follow up CT at that time - Will defer decision of need for aspirin or plavix in addition to OAC to C ardiology - LDL of 51 is at goal of <70. - Patient currently on low dose atorvastatin 10mg daily - HgbA1C pending - DVT prophylaxis with Lovenox - Continue PT and OT evaluations - Continue stroke pathway - Rehab evaluation (ok from neurology standpoint for patient to attend [facility] rehab closer to home in [place], if necessary) Active Problems: Acute hypoxemic respiratory failure (HCC) CHF (congestive heart failure) (HCC) Acute ischemic stroke (HCC) Electronically signed by Soniya Callejas 10/02/2022 10:59 AM ACCOUNT DIRECTOR * Ibeth Mast, SALES VICE PRESIDENT - 10/01/2022 1:41 PM CST Respiratory Care Services Initial RATE Note 10/01/2022 1:42 PM A RATE assessment and treatment plan was performed on Donnell Diehl, : The primary Pulmonary/Respiratory related diagnosis for assessment on this admis rylee is: Hypoxemia History: The patient has a self-maintained airway. Home Therapy Review: The patient states the use of: N/A Home medication was validated in the under Prior to Admission Medications activi ty. Patient/Patient's family was able to describe current use. The patient states she does not use oxygen at home. The patient states she does not use assistive ventilatory support devices at [facility]. The patient states she does not use other home therapies: Social History Review: The patient reports that she has quit smoking. Her smoking use included cigaret kapil. She does not have any smokeless tobacco history on file. Counseling given: Not Answered Physical Assessment: Pulse: 93 Resp: 23 SpO2: 94 % O2 Flow Rate (L/min): 6 L/min Lung Assessment: Respiratory (WDL): X (*WDL=Within Defined Limits; X=Exceptions to WDL) Respiratory Pattern: Respiratory Pattern: Normal Chest Assessment: Chest Assessment: Chest expansion symmetrical Breath Sounds: Bilateral Breath Sounds: Diminished The operating protocol was initiated based on the RATE Consult physician order. Based on the patient's history and current physical assessment, the patient caleb ts criteria for the following treatment plan(s): Treatment Plan The treatment plan identified for the patient is as follows: Oxygen Therapy Protocol: Oxygen Therapy Criteria for Service: Hypoxemia Intervention: Low Flow Device Expected Outcome: Maintain SpO2; Decrease SOA or WOB Order/Plan Summary Pt states that she was diagnosed with sleep apnea, has a machine but does not us e it Based on the RATE Criteria being met, the following RATE Protocols will be used: RATE Operating Medical Protocol RATE Adult Oxygen Therapy Medical Protocol ACCOUNT DIRECTOR documented in this encounter H&P Notes * Zaida Colby MD - 10/01/2022 12:57 PM CST Images from the original note were not included. [facility] Comprehensive Initial Note Date: 10/01/2022 Established [facility] patient: No PCP: No primary care provider on file. Chief complaint: AHRF Note generated by: Carmencita Escudero MD (CV fellow) HPI: Ms. Donnell Diehl is a very pleasant 77 yo female with history of severe aort ic stenosis s/p recent TAVR (Sep 22, 2022 performed in [facility]), HFpEF, HTN, DM 2 who presented to [facility] with hypoxic respiratory failure and SOB. She was transferred to [facility] for management of hypoxia related to HF and con cern for pneumonia. On arrival to [facility], she was found to be profoundly weak on her left side, with le ft sided facial droop, left sided arm and leg weakness and numbness. This is new from her transfer from [facility]. A CODE stroke was called and imaging showed no large vessel disease but multiple small areas of infarction. She does have a history of TIA, six weeks ago she had a TIA syndrome that resolved spontaneously. She presented to the OSH with hypoxia requiring NIV, an PENG with Cr 1.93, lactic acidosis of 2.3, elevated NT-proBNP of 3500, HST 4500 and leukocytosis to 18K. CXR showed bilateral infiltrates. She was heparinized and started on empiric ant ibiotics for presumed pneumonia. She has been told that since her TAVR her EF is less than 20% and she has a new diagnosis of HF. She lives in [facility] and reports she has not done well since her TAVR. Home medications - spironolactone 12.5 mg - empagliflozin 10 mg - metoprolol succinate 50 mg - lisinopril 5 mg No past medical history on file. No past surgical history on file. Social History: has no history on file for tobacco use, alcohol use, and drug use. No family history on file. Family History of Premature CAD: No Review of Systems Constitutional: Negative. HENT: Negative. Eyes: Negative. Respiratory: Positive for shortness of breath. Cardiovascular: Negative. Gastrointestinal: Negative. Endocrine: Negative. Genitourinary: Negative. Musculoskeletal: Negative. Allergic/Immunologic: Negative. Neurological: Negative. Hematological: Negative. Psychiatric/Behavioral: Negative. Not on File Medications: No medications prior to admission. LABS & IMAGING: Stroke CT Head wo contrast Result Date: 10/01/2022 1. 2. Acute to subacute infarcts in the right frontal and left parietal region. 3. Mild cerebral volume loss. Mild chronic small vessel ischemic disease. The above findings were communicated by telephone to Dr. ZAIDA COLBY at 10/01/2022 11:02 AM. ATTESTATION STATEMENT: The staff radiologist has personally reviewed the images and dictated, reviewed and/or edited the resident's report. READING SITE: [facility] EKG: Normal Sinus Rhythm with LAFB/LBBB 116 bpm Telemetry: Normal Sinus Rhythm Most Recent Result within the last 7 days Lab Units 10/01/22 1052 WBC TH/uL 16.40* HEMOGLOBIN g/dL 9.1* HEMATOCRIT % 29* PLATELET COUNT Th/uL 332 No results for input(s): NA, CL, CO2, CL, BUN, CREAT, MG in the last 72 hours. No lab components to display No lab components to display No lab components to display No results found for: BNP No results found for: [id number], [id number], [id number], [id number], TR [id number] No results found for: HGBA1C PHYSICAL EXAM: Pulse: [93-98] 93 Resp: [25-31] 25 BP: (88-92)/(59-66) 88/66 ANTONINA Risk Index for in-hospital mortality Age: 77 y.o. BP: (!) 88/66 Pulse: 93 ANTONINA Risk Index Score: 63 <20 is low risk 20-30 is Intermediate >30 is high risk Physical Exam Vitals and nursing note reviewed. Constitutional: Appearance: Normal appearance. She is normal weight. HENT: Head: Normocephalic and atraumatic. Right Ear: Tympanic membrane normal. Left Ear: Tympanic membrane normal. Nose: Nose normal. Eyes: Pupils: Pupils are equal, round, and reactive to light. Cardiovascular: Rate and Rhythm: Normal rate and regular rhythm. Pulmonary: Effort: Pulmonary effort is normal. Breath sounds: Normal breath sounds. Abdominal: General: Abdomen is flat. Bowel sounds are normal. There is no distension. Tenderness: There is no abdominal tenderness. Musculoskeletal: Cervical back: Normal range of motion and neck supple. Neurological: Mental Status: She is alert. Comments: Profound L sided weakness, facial droop, loss of sensation Psychiatric: Mood and Affect: Mood normal. Behavior: Behavior normal. ASSESSMENT & PLAN: Active Problems: Acute hypoxemic respiratory failure (HCC) CHF (congestive heart failure) (HCC) #AHRF - patient presented to OSH with acute hypoxic respiratory failure requirin g NIV with initial O2 70%. CXR showed bilateral infiltrates. BNP was elevated an d patient had a leukocytosis. She was treated with IV furosemide and started on antibiotics for HAP. Respiratory failure is multifactorial with recent TAVR, HFp EF, - Cultures ordered - Empiric cefepime and vancomycin ordered - Will hold on additional diuretics with improvement in respiratory and recent C VA - TTE ordered to assess TAVR #Acute CVA - found to have profound left sided weakness and facial droop on arri tameka. CODE stroke called and shown to have multiple areas of infarction. Concern would be for undiagnosed AF or LV thrombus. - Will hold heparin with elevated HST and no chest pain with recent CVA - ASA continued - Statin continued - Neurology consult placed - Will hold antihypertensives for permissive blood pressures #Elevated troponin - HST elevated at OSH to 4500 in the setting of recent TAVR, AHRF and PENG. Currently denies any anginal symptoms. Most likely this is a type II IL in the setting of recent TAVR and HF decompensation. ECG non-ischemic with partial LBBB. - Records from [place] requested for any coronary imaging prior to TAVR - Will trend HST - TTE ordered - ASA and statin continued - Will plan to start BB as tolerated - Holding heparin with low suspicion of ACS and CVA #Severe aortic stenosis s/p TAVR - TTE ordered to assess for HF and position - ASA and statin ordered #HFrEF - warm and wet on exam, with reported history of LVEF 10%. - Holding GDMT - TTE pending #Acute tubular necrosis and acute renal injury - Cr is 1.86, baseline had been 1 .1; following TAVR she has had a persistently elevated Cr. - Will hold SGLT2, FER and RAASi given acute injury - Will continue to monitor #Lactic acidosis - lactate 2.3 with repeat pending. Likely related to PENG, AHRF. #DM2 - A1c pending, holding SGLT2 #HTN - holding agents allowing for permissive HTN #HLD - continue statin #Anemia - Hgb 9 - no known prior, iron studies pending, denies bleeding issues DIET - NPO following CVA DVT - subQ heparin CODE - FULL A total of 30 of provider time was spent on retrieving results, reviewing result s, interpreting results and providing communication on results and recommendatio ns. This note was completed by: Resident/Fellow: Electronically signed by Carmencita Escudero MD, 10/01/2022 11:27 AM Attending Physician Attestation I, Zaida Colby M.D., have independently seen and examined the patient. I h janelle reviewed the medical record. I agree with the history, assessment, and plan as outlined in the note of Dr. Escudero with the following revisions and/or addit ions. This is a 77-year-old female with TAVR at outside hospital 09/22/2022, reported ch ronic systolic heart failure, type 2 diabetes who was accepted to this facility for congestive heart failure exacerbation requiring BiPAP. She presented to her local hospital with acute hypoxemic respiratory failure. S he demonstrated leukocytosis, mildly elevated lactic acid, elevated NT proBNP an d congestion on chest x-ray. High-sensitivity opponent was elevated at 4500. S he required BiPAP and had low-normal blood pressures. [facility] of congestive heart failure. She was transferred to the CCU via [facility]. Immediately on presentation she had profound left-sided weakness and facial droop with loss of sensation. This was not communicated to me prior to transfer. This was not communicated on the nursing report prior to transfer. It may have developed during the helicopter f light. Code stroke was activated. Noncontrast head CT demonstrates acute to subacute infarcts in the right frontal and left parietal region. CT angiogram of the head and neck demonstrates multi ple small acute to subacute infarcts in the right frontal, left parietal, left o ccipital, right cerebellar regions consistent with embolic etiology. No high-gr phyllis stenosis or arterial occlusion to indicate intervention. 1. Acute hypoxemic respiratory failure 2. Pulmonary edema She received 40 mg of IV furosemide. We will likely redose this evening. With her leukocytosis, we have started cefepime and vancomycin. Blood cultures drawn 3. Multifocal cerebrovascular accident 4. Recent TAVR She is in sinus rhythm. LVEF is reported to be low. Check echocardiogram with contrast to rule out LV apical thrombus. If unremarkable, low threshold for car diac MRI when the patient is in a less acute situation. Given recent TAVR, bloo d cultures have been drawn. May need to consider ALONSO if cardiac MRI and TTE are unrevealing when the patient is less acute. Code stroke activated and neurology consulted. 5. Acute on chronic systolic heart failure 6. Elevated troponin We will need to get outside records from [facility] regarding the circumsta nces behind her TAVR and whether a cardiac catheterization was performed. At th is time, the patient does not endorse chest pain. With multi embolic infarcts, we will hold on heparin. Check echocardiogram. Borderline blood pressures and we may need to hold GDMT to help with cerebral perfusion. 7. Acute kidney injury Baseline serum creatinine 1.1. Monitor urine output and serum electrolytes. We will need to diurese given respiratory distress. 8. Type 2 diabetes SSI Physical Exam BP 94/54 (BP Location: Left arm) | Pulse 93 | Temp 36.9 C (98.4 F) (Axilla ry) | Resp 27 | Ht 1.575 m (5' 2") | Wt 56.6 kg (124 lb 12.5 oz) | SpO2 96% | BMI 22.82 kg/m General: Patient not in acute distress, responsive. HEENT: Normocephalic, atraumatic. CV: Regular rate and rhythm, normal S1S2, 2/6 right upper sternal border early peaking systolic murmur Pulm: Diminished bibasilar breath sounds with rales Abd: Nondistended Ext: No edema Skin: Warm and well-perfused. Pale Neuro: Left-sided hemiparesis and neglect Zaida Colby M.D. 35 minutes in critical care time spent in the care of this patient managing pote ntially life-threatening conditions. ACCOUNT DIRECTOR documented in this encounter Consult Notes * Ronny Leone MD - 10/05/2022 3:56 PM CST [facility] Patient Name: Donnell Diehl Account No: [id number] Date of : 1945 Date of Admission: 10/01/2022 10:36 AM Primary Care Physician: Jennie Holland; Consults Consult from cardiology, Neville Watkins for medical management/assume care Subjective History of Present illness: Ms. Donnell Diehl is a 77 y.o. female w/ PMHx TA VR (09/22/22), HFpEF, HTN, DM2 who presented with CHF, possible PNA and apparently had a CVA during transit. Presented to OSH w/ hypoxia, PENG (Cr 1.93), BNP 3500, WBC 18K. CXR w/ b/l infilt rates. Complicating her presentation is a newly reduced EF of <20% since TAVR. She was started on Abx and transferred to [facility]. On arrival to [facility] from [facility] she was noted to have diffuse L- weakness, imaging showed multiple small areas of infarct. She was started on Lasix 40 IV but appeared to become rapidly euvolemic and wean ed to room air based on notes. Lasix was discontinued. Neuro was consulted dahliaar lelo CVA - felt to be cardioembolic. Needs repeat CTH on 10/08 to determine if ap propriate to start anticoag given hemorrhagic transformation on initial imaging. Currently patient says she feels SOA w/ minimal exertion and that this has progr essed over last 24 hrs. She received a dose of Lasix 40 IV d/t concern for devel oping pulmonary edema, has had good UOP and is already starting to feel better. Has continued L-sided weakness though tolerating PO intake. Also w/ central visi on deficit 2/2 CVA. Frequent vertigo since CVA though responds to meclizine. Has not had a BM in approx 5 days though denies N/V. Does feel her sinuses are hank ested. ROS All other ROS are negative. Medical History Diagnosis Date Aortic stenosis Congestive heart failure (CHF) (HCC) Diabetes mellitus (HCC) Hyperlipidemia Hypertension Neuropathy Surgical History Procedure Laterality Date CHOLECYSTECTOMY HYSTERECTOMY TAVR, FEMORAL APPROACH Family History History reviewed. No pertinent family history. Family History last reviewed as of 10/05/2022 4:06 PM Social History Tobacco Use Smoking status: Former Types: Cigarettes Smokeless tobacco: None Vaping Use Vaping Use: Former Substance Use Topics Alcohol use: Never Drug use: Never Allergies Allergies Allergen Reactions Demerol (Pf) [Meperidine (Pf)] Lipitor [Atorvastatin] Morphine Penicillins Tetracycline Prior to Admission Medications Medication Sig aspirin 81 MG chewable tablet Chew 1 tablet (81 mg total) daily. Docusate Sodium 100 MG capsule Take 1 capsule (100 mg total) by mouth 2 (two) ti mes a day. DULoxetine (CYMBALTA) 30 mg capsule Take 1 capsule (30 mg total) by mouth at bed time. empagliflozin (JARDIANCE) 10 mg tablet Take by mouth daily. lisinopriL (PRINIVIL, ZESTRIL) 5 MG tablet Take 1 tablet (5 mg total) by mouth d ute. metoprolol succinate (TOPROL-XL) 50 MG 24 hr tablet Take 1 tablet (50 mg total) by mouth daily. pantoprazole (PROTONIX) 40 MG tablet Take 1 tablet (40 mg total) by mouth every morning. pramipexole (MIRAPEX) 1 MG tablet Take 1 tablet (1 mg total) by mouth at bedtime . pravastatin (PRAVACHOL) 40 MG tablet Take 1 tablet (40 mg total) by mouth at bed time. spironolactone (ALDACTONE) 25 MG tablet Take 0.5 tablets (12.5 mg total) by mout h daily. trazodone (DESYREL) 50 MG tablet Take 1 tablet (50 mg total) by mouth nightly. Objective Vital Signs: Temp: 36.7 C (98.1 F) Pulse: (!) 107 Resp: 18 BP: 103/67 SpO2: 96 % Height: 157.5 cm (5' 2") Weight: 60.8 kg (134 lb 1.6 oz) I/O last 24 Hours: In: 600 [P.O.:600] Out: 650 [Urine:650] Physical Exam Constitutional: General: She is not in acute distress. Appearance: Normal appearance. She is not toxic-appearing. HENT: Head: Normocephalic and atraumatic. Mouth/Throat: Mouth: Mucous membranes are moist. Eyes: Extraocular Movements: Extraocular movements intact. Pupils: Pupils are equal, round, and reactive to light. Cardiovascular: Rate and Rhythm: Regular rhythm. Tachycardia present. Pulmonary: Comments: Poor air mvmt in b/l lung bases, no crackles on exam, no increased WOB on room air Abdominal: General: There is no distension. Palpations: Abdomen is soft. Tenderness: There is no abdominal tenderness. Musculoskeletal: Right lower leg: No edema. Left lower leg: No edema. Skin: General: Skin is warm and dry. Neurological: Mental Status: She is alert and oriented to person, place, and time. Comments: L shoulder abduction 2+/5, R shoulder 4+/5, L hip flexion 4/5, Rhip flexion 4+/5 Psychiatric: Mood and Affect: Mood normal. Behavior: Behavior normal. I have personally reviewed the patient's vital signs, laboratory/pathology/cultu re results (as indicated), current inpatient medications and data support specialist notes with pertainent findings noted within the assessment/plan. Assessment/Plan Ms. Donnell Diehl is a 77 y.o. female who was admitted on 10/01/2022 with com plaint of SOA, acute CVA. * Acute ischemic stroke (HCC) Cardioembolic CVA w/ multiple infarcts on CT 10/01. MRI brain 10/02 w/ small areas of associated hemorrhage Has vertigo, visual field deficit, and L-sided weakness from the CVAs Neuro consulted Etiology presumed to be cardioembolic Continue ASA 81/day, Atorvastatin 10/day Has acute rehab recs Needs repeat CTH on 10/08 - if no bleeding will need to start therapeutic anticoa gulation for cardioembolic prophylaxis given above etiology Constipation No BM x5+ days BS present, no N/V Scheduled Miralax BID. Continue scheduled Senna FLEET enema ordered Type 2 diabetes mellitus without complication, without long-term current use of insulin (HCC) A1c 5.9% though result may be artificially low d/t recent procedure (and associa trey blood loss) Continue Jardiance SSI while inpatient - BS well-controlled so far while inpatient Acute on chronic combined systolic and diastolic congestive heart failure (HCC) Systolic CHF is new diagnosis this admission. EF 23% this admit on TTE Cardiology following Continue Jardiance Start Metoprolol succinate Soft BP has limited GDMT Received 1x dose Lasix 40 IV on 10/05 for developing pulmonary edema - will need to re-dose on 10/06 based on patient response Pneumonia of both lungs due to infectious organism Questionable diagnosis of PNA on transfer from OSH. She did have leukocytosis 18 K on presentation to OSH. BCx done on admit to [facility] are NGTD Possibly leukocytosis was stress reaction in setting of respiratory failure and fluid overload, however now has only 1 day left on 5 day course of empiric Cefep yulisa Complete last dose of Cefepime on 10/05 as scheduled In addition, see my orders for additional details regarding this patients treatm ent plan. Diet: Diet-Low Fat/Chol, 2 gm Na (Heart Healthy); Caffeine Allowed VTE Prevention: Appropriate VTE chemical treatment ordered. Appropriate VTE mec hanical treatment ordered. Code Status: Full Code Thank you for the opportunity to participate in this patients care. We will cont inue to follow. Ronny Leone MD [facility] . ACCOUNT DIRECTOR * Blane Buckner MD - 10/04/2022 10:37 AM CSTAssociated Order(s): IP CONSULT TO PHYSICAL MEDICINE AND REHABILITATION [facility] 10/04/2022 Patient Identification Patient's Name: Donnell Diehl : 1945 Admit Date: 10/01/2022 Attending Provider: Faizan Wu MD Patient was seen and evaluated by the Physical Medicine & Rehabilitation Medicine consult service at the request of Faizan Wu MD for rehabilitation needs. Primary Care Physician: Jennie Holland Admitting Diagnosis: Acute ischemic stroke (HCC) [I63.9] PPE Statement: Blane Buckner MD used Yellow precautions (Level 3 mask, eye pro tection, and gloves). Assessment/Plan Rehabilitation diagnoses: 1. Embolic stroke following TAVR. 2. Left hemiparesis. 3. Ataxia. 4. Visual distortion. 5. Gait abnormality. 6. Dysphonia. 7. Left neglect. Rehabilitation plan: 1. Speech therapy to do formal swallow study. I think this behooves us to perfo rm a formal study given the degree of stroke burden in multiple territories. 2. Occupational therapy to work on visual scanning as well as upper limb coordin ation and strength. Start ADL retraining. 3. Physical therapy to work on lower extremity strengthening as well as gait and balance training. 4. She certainly requires further therapy. I would anticipate that she will john erate ARU but she will need family assistance supervision when she is discharged . I understand that she lives in [place], [place]. She does have 2 daughters t hat live in the area as well. 5. I will let our admissions team now. 6. She is agreeable to this treatment plan. Thank you for this referral. Hopefully these efforts are helpful. History of Present Illness Donnell Diehl is a 77 y.o. female who is right-handed and was admitted to [facility] via the [facility] for left-sided weakness and lef t facial droop. She has been found to have multiple areas of infarction includi ng the cerebellum-right greater than left, bilateral occipital lobe and multiple other areas of infarction. She had undergone TAVR in a local hospital in [place], [place] on 09/22/2022. She been doing fairly well. She reports that she lives in [place], [place]. Rebecca menendez lives alone but does have 2 daughters that live there. Prior to this she was quite active and ambulated without assistive device along with being independent with her basic and advanced ADLs. She does endorse visual disturbance. Physiatry was consulted to evaluate rehabilitation needs per the stroke protocol . She denies pain. She does endorse some coughing with meals. She apparently did pass bedside swallow evaluation. Essential elements needed in history of present illness: 1. Location-embolic stroke. 2. Quality-severe. 3. Severity-affecting mobility and self-cares. 4. Duration-10/01/2022. 5. Timing-Daily. 6. Context-recent TAVR. 7. Modifying factors-none. 8. Associated signs and symptoms-impaired mobility and self-cares. Patient History Information PAST MEDICAL HISTORY: Past Medical History: Diagnosis Date Aortic stenosis Congestive heart failure (CHF) (HCC) Diabetes mellitus (HCC) Hyperlipidemia Hypertension Neuropathy PAST SURGICAL HISTORY: Past Surgical History: Procedure Laterality Date CHOLECYSTECTOMY HYSTERECTOMY TAVR, FEMORAL APPROACH FAMILY HISTORY: Reviewed and noncontributory to this episode of care. SOCIAL HISTORY: Social History Socioeconomic History Marital status: Number of children: 4 Occupational History Occupation: retired [employer] Tobacco Use Smoking status: Former Types: Cigarettes Vaping Use Vaping Use: Former Substance and Sexual Activity Alcohol use: Never Drug use: Never Premorbid Functional Status: Prior Level of Function: As described in history of present illness. Current Functional Status: Therapy notes reviewed in EMR. Precaution Allergies Allergen Reactions Demerol (Pf) [Meperidine (Pf)] Lipitor [Atorvastatin] Morphine Penicillins Tetracycline Scheduled Meds: aspirin 81 mg Oral Daily atorvastatin 10 mg Oral Nightly cefepime 1 g Intravenous Q12H CINDY empagliflozin 10 mg Oral Daily heparin (porcine) 5,000 Units Subcutaneous Q8H insulin lispro 1-5 Units Subcutaneous 4 times daily before meals and nightl y meclizine 25 mg Oral TID pantoprazole 40 mg Oral Daily before breakfast polyethylene glycol 17 g Oral Daily pramipexole 1 mg Oral Daily senna-docusate 1 tablet Oral Daily Continuous Infusions: PRN Meds:.acetaminophen OR acetaminophen, aluminum-magnesium hydroxide-simet hicone, dextrose 50% OR dextrose 10%, dextrose 50%, docusate sodium, glucago n OR glucagon, glucose, magnesium sulfate, miconazole nitrate, nitroglycerin , ondansetron, polyethylene glycol, potassium chloride OR potassium bicarb-c itric acid OR potassium chloride in water Review of Systems A comprehensive review of systems was negative except for: As described in histo ry of present illness. Physical Exam Patient Vitals for the past 24 hrs: BP Temp Temp src Pulse Resp SpO2 Weight 10/04/22 1000 -- -- -- (!) 111 21 97 % -- 10/04/22 0900 -- -- -- (!) 112 25 94 % -- 10/04/22 0800 108/78 36.8 C (98.3 F) Oral (!) 103 19 95 % -- 10/04/22 0700 -- -- -- 87 11 96 % -- 10/04/22 0624 -- -- -- -- -- -- 55.5 kg (122 lb 5.7 oz) 10/04/22 0340 122/79 36.8 C (98.2 F) Oral (!) 103 23 96 % -- 10/04/22 0016 -- -- -- 85 21 98 % -- 10/03/22 2345 99/57 36.7 C (98 F) Oral 84 11 95 % -- 10/03/22 2330 -- -- -- -- -- 92 % -- 10/03/22 1945 117/69 36.3 C (97.4 F) Oral (!) 102 20 97 % -- 10/03/22 1900 105/87 -- -- (!) 105 24 96 % -- 10/03/22 1800 113/52 -- -- (!) 103 19 97 % -- 10/03/22 1700 116/86 -- -- (!) 107 21 97 % -- 10/03/22 1632 117/64 -- -- 101 26 94 % -- 10/03/22 1600 103/71 -- -- 97 17 98 % -- 10/03/22 1526 -- 36.6 C (97.9 F) Oral 92 20 100 % -- 10/03/22 1500 100/45 -- -- 86 9 93 % -- 10/03/22 1400 102/54 -- -- 91 12 93 % -- 10/03/22 1300 104/49 -- -- (!) 102 22 94 % -- 10/03/22 1200 105/58 -- -- 94 21 96 % -- 10/03/22 1100 118/73 -- -- (!) 110 21 98 % -- 10/03/22 1043 118/73 -- -- (!) 110 -- -- -- General.: Cooperative with examination. She appears younger than her stated age . HEENT: Subtle left facial droop. Decreased scanning to the left. Chest: Clear to auscultation. Heart: Regular rate and rhythm. Abdomen: Soft, nontender and normoactive bowel sounds. Extremities: No cyanosis, clubbing or edema. Neuro: Alert and oriented 3. Speech is mildly dysphonic. Otherwise she has g ood fluency, repetition and comprehension. Right upper limb strength is 5/5 for the shoulder, elbow and hand controllers. Left upper limb strength is 2/5 for the shoulder controllers; elbow and hand controllers are 2+/5. Right lower limb strength is 5/5 for the hip, knee and ankle controllers. Left lower limb stren gth is 4/5 for the hip, knee and ankle controllers. She does exhibit some trunc al ataxia. DATA REVIEW Most Recent Result within the last 7 days Lab Units 10/03/22 2346 WBC TH/uL 9.13 HEMOGLOBIN g/dL 8.7* HEMATOCRIT % 27* PLATELET COUNT Th/uL 355 Most Recent Result within the last 7 days Lab Units 10/03/22 2346 10/03/22 0442 10/02/22 0017 SODIUM mEq/L 139 138 137 POTASSIUM mEq/L 3.9 4.0 4.2 CARBON DIOXIDE mEq/L 23 25 25 BLOOD UREA NITROGEN mg/dL 25* 35* 35* CREATININE mg/dL 1.31* 1.51* 1.76* GLUCOSE mg/dL 112* 130* 131* CALCIUM mg/dL 8.[address] Angio Head and Perfusion P Result Date: 10/01/2022 Impression: 1. Small multiple acute to subacute infarcts in the right frontal, left parietal, left occipital lobes, and bilateral cerebellum, likely embolic etiology. Recommend brain MRI for further assessment. 2. No emergent large vessel occlusion. No large vessel perfusion abnormality. No indication for acute endovascular intervention. 3. No hemorrhage or mass effect. 4. Mild nonspecific periventricular hypoattenuation, most commonly seen with chronic small vessel ischemic disease. The above findings were communicated by telephone to the code neuro nurse by Dr. Samayoa at 11:12 am on 10/01/2022. The findings were also communicated to Dr. ZAIDA COLBY and Maureen Leiva RN by the conference and event organiser resident. ATTESTATION STATEMENT: The staff radiologist has personally reviewed the images and dictated, reviewed and/or edited the resident's report. READING SITE: [facility] CT Angio Neck Result Date: 10/01/2022 Impression: 1. No stenosis of the cervical carotid or vertebral arteries. 2. Beaded appearance to the bilateral upper cervical ICA suggesting fibromuscular dysplasia. No associated stenosis, dissection, or pseudoaneurysm. 3. Moderate cervical spondylosis. ATTESTATION STATEMENT: The staff radiologist has personally reviewed the images and dictated, reviewed and/or edited the resident's report. READING SITE: [facility] MRI Head w wo contrast Result Date: 10/02/2022 1. Multifocal acute infarcts involving the bilateral frontoparietal and occipital lobes and the bilateral cerebellar hemispheres. Pattern suggestive of watershed ischemia and/or multivascular territory embolic event. Associated trace type I petechial hemorrhage in the right frontoparietal and left parietal lobes. Trace enhancement in the infarct in the right frontoparietal region which may relate to subacute infarct. 2. Mild generalized cerebral and cerebellar volume loss. Mild subcortical and deep periventricular white matter FLAIR hyperintensities, a nonspecific finding, most commonly seen with chronic small vessel ischemic disease. READING SITE: [facility] 5. ATTESTATION STATEMENT: The Staff Radiologist has personally reviewed the images and dictated, reviewed, or edited the final report. XR Chest single view frontal Result Date: 10/03/2022 1. Improved lung volume with improved perihilar and basilar opacities. 2. Decreased or redistributed small right greater than left layering pleural effusions. READING SITE: [facility] XR Chest single view frontal Result Date: 10/02/2022 FINDINGS AND IMPRESSION: Lungs: Stable extensive heterogeneous opacities bilaterally. Pleura: Stable small bilateral pleural effusions. No pneumothorax. Heart and Mediastinum: Stable heart and mediastinum. Status post TAVR. Bones and soft tissues: Stable regional skeleton. READING SITE: Home, Due to Covid-19 XR Chest single view frontal Result Date: 10/01/2022 1. Perihilar and bibasilar airspace disease, likely atelectasis and edema. Superimposed infection could appear similar. 2. Moderate right and small left pleural effusions. 3. Cardiomegaly. TAVR. ATTESTATION STATEMENT: The staff radiologist has personally reviewed the images and dictated, reviewed and/or edited the resident's report. READING SITE: Home, due to Covid [address] Head wo contrast Result Date: 10/01/2022 1. Numerous small cortical infarcts bilaterally, suggestive of embolic etiology. 2. No acute hemorrhage or mass effect. 3. Mild cerebral volume loss. Mild chronic small vessel ischemic disease. The above findings were communicated by telephone to Dr. ZAIDA COLBY at 10/01/2022 11:02 AM. ATTESTATION STATEMENT: The staff radiologist has personally reviewed the images and dictated, reviewed and/or edited the resident's report. READING SITE: [facility] Electronically signed by Blane Buckner MD 10/04/2022 10:38 AM ACCOUNT DIRECTOR * Soniya Callejas MD - 10/01/2022 12:29 PM CSTAssociated Order(s): IP CONSULT [facility] Neurologist: I personally interviewed and examined Ms. Donnell Diehl. I discussed the fin dings with Andrés Ewing RN ANP and reviewed her note. I agree with the findings with exceptions noted. Ms. Diehl is a 77 year-old right-handed woman with a past history significant for hypertension, hyperlipidemia, diabetes complicated by neuropathy, restless leg syndrome and previously diagnosed cardiomyopathy with EF of 10% who underwent TA VR 9 days ago. Since then, she has been persistently hypotensive. During the n ight last night, she attempted to turn over in bed and noticed that she was weak on the left. This morning, she had persistent left sided weakness and went to an outside hospital before subsequently being transferred to [facility] She has not noticed any improvement in her strength but has not developed any new sympt oms. Objective findings and Assessment/Plan are as follows: Physical Exam: Vital Signs: BP 101/49 | Pulse 91 | Temp 36.7 C (98 F) (Oral) | Resp 22 | Ht 1.575 m (5' 2") | Wt 56.6 kg (124 lb 12.5 oz) | SpO2 95% | BMI 22.82 kg/ m GEN: Alert, frail-appearing, but in no distress. NEURO: Mental status: The patient is awake, alert, and oriented to month and y ear. Her speech is fluent without evidence of aphasia Cranial nerves: EOM's are full without nystagmus. Pupils are reactive symmetri fernie. Visual maradiaga are full. There is mild left nasolabial fold flattening. The tongue protrudes in the midline and the palate elevates symmetrically. No dysarthria is noted. Sensory: Intact to light touch throughout Motor: The patient is able to minimally lift the arm against gravity. Hot End Operator str ength is much better than proximal strength. She is able to briefly lift the le ft leg off the bed but could not hold it persistently. Reflexes: 2+ and symmetric throughout Coordination: Intact [id number] on the right Gait: Deferred Assessment: 1) Left hemiparesis in the setting of severe cardiomyopathy, likely cardioem bolic stroke - I reviewed the CT brain which reveals multiple scattered hypodensities con sistent with infarcts - CTA head does not reveal evidence of large vessel occlusion - Patient not a candidate for thrombolysis as she was outside the window at presentation - Will obtain MRI brain - ECHO reveals EF 10% - Attempt to keep MAP >70 for cerebral perfusion - Will check lipid panel and HgbA1C - Ok to continue aspirin 81mg and plavix 75mg until MRI completed. Will nee d to consider oral anticoagulation given the severely reduced EF and risk for re current embolic stroke - PT, OT and Speech evaluations - Hold statin due to elevated LFT's Electronically signed by Soniya Callejas 10/01/2022 9:39 PM NEUROLOGY CONSULTATION Patient Name: Donnell Diehl : 1945 PCP: No primary care provider on file. Date of consultation: 10/01/2022 Requesting physician/service: Dr Escudero Reason for consult: stroke HISTORY OF PRESENT ILLNESS History is provided via: patient Visitors at the bedside: none Donnell Diehl is a 77 y.o., right-handed female with history of newly diagno sed congestive heart failure with EF of 10% per patient report, severe aortic st enosis s/p TAVR 09/22/2022, hypertension, diabetes mellitus, neuropathy, RLS, hype rlipidemia presented to [facility] with waxing and waning left side weakness beginning sometime last night. She's had SOA, [place], PND, edema on and off for the last week . When she went to sleep last night at 2100, she felt normal, sometime in the m iddle of the night she was unable to get up out of bed. She noted the left side felt different from the right. She was seen at [facility] for CC of short ness of breath. She was hypoxic, noted to be in acute congestive heart failure and treated with 40 mg of lasix. Sometime between then and here, she began breat dillan better but she could no longer move her left arm. The CCRN noted the left leg is better for my exam then earlier after arrival. It appears she is waxing a nd waning. CT head with subacute right frontal and left parietal stroke. CT ang io head, perfusion, neck was negative for large vessel occlusion. There BP 146/ 86, HR 116, SBP here 92/59. About 6-8 weeks ago she had a 10 minute spell of aphasia. She is unsure which t ests were done. She was told it was a TIA. She was not started on any new medi cations. DX from the outside hospital PLT 397, sodium 138 potassium 5.3 creatinine 1.93 BUN 39, glucose 160 alkaline p hosphatase 175 AST 173 ALT 159 total protein 7.2 albumin level 3.4 lactic acid 2 .3 total bili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 of Assistance Pants up assist;Pants down assist;Perineal hygiene; Steadying assistance for balance;Safety concerns Toilet Transfer Moderate Assistance Toilet Transfer Equipment Grab bar;Roller walker;Standard toilet Toilet Transfer Method Ambulating Toilet transfer comments ambulates with max cues for positioning of feet and wal ker guidance. Mod A sit to and from stand, needs physical assistance to remove left hand from walker. Cognition Orientation Level Oriented to person;Oriented to place;Oriented to time;Oriented to situation Perception Inattention/Neglect Cues to attend left visual field;Cues to attend to left side of body;Cues to maintain midline in sitting;Cues to maintain midline in standin g Initiation Cues to initiate tasks Motor Planning Requires increased time;Cues for sequencing Perseveration Not present Vision - Complex Assessment Vision Intact No Attention Left impaired;Quintin-inattention left Bed Mobility Rolling Min assist to left Supine to Sit Min assist to left;Bed Rail;Verbal cueing required;HOB elevated Transfers Assistive Device Rolling walker Sit to Stand Transfers Mod assist;Verbal cueing required;Assistive Device Stand to Sit Transfers Min assist;Verbal cueing required;Assistive Device Bed to Chair Verbal cueing required;Assistive Device;Safety concerns;Max assist to left Toilet transfer Mod assist to right;Verbal cueing required;Assistive Device;Safe ty concerns Transfer Comments Pt completed shower transfer this date into roll in shower wit h Mod A difficulty with advancing left LE into shower. Gait Activity Gait Surface level surface Gait Activity room mobility Gait Time 0-5 min Gait Assistance max assist Gait Activity Comments RW with handle splint LUE, difficulty with manuevering wa lker and advancement of LLE. narrow base of support and difficulty with accurac y with placement of LEs Activity Tolerance Activity Tolerance fair Activity Tolerance Comments fatigued throughout Timeframe Timeframe STG 3 visits Timeframe LTG 6 visits GOALS Goals Toilet Transfers;Strength;Stand Balance Toilet Transfer Goals Toilet Transfer STG Goal Status Goal continues Toilet Transfer STG Minimal Assistance Toilet Transfer LTG Goal Status Goal continues Toilet Transfer LTG Setup/Supervision Stand Balance Goals Stand Balance STG Goal Status Goal continues Stand Balance STG 2/5 supports self independently with both UEs Stand Balance LTG Goal Status Goal continues Stand Balance LTG 4/5 moves/returns trunk midpoint 1-2 inches in multiple planes Strength Goals Strength STG Goal Status Goal continues Strength STG Left;Increase 1/2 muscle grade;In prep for ADLs;In prep for functio nal tasks Strength LTG Goal Status Goal continues Strength LTG Left;Increase 1 muscle grade;In prep for ADLs;In prep for functiona l tasks *PLAN Patient/Caregiver Goal to get better OT Frequency 3-5x/wk Discharge Recommendations Based on Today's Functional Status OT Plan Continued OT during acute admission OT Plan need for Post Acute Care Continue high intensity progression of OT in [facility]acute care Care Coordination Care Coordination CC x 1 pre/post treatment with RN. Fall Prevention Interventions Fall Prevention Interventions in place before leaving patient: Proper footwear;C hair alarm activated;Call light in reach;Personal items/tray table in reach;Sitt ing in recliner chair with legs elevated AM-PAC Daily Activity Putting on and taking off lower body clothing 2 Bathing (including washing, rinsing, drying) 2 Toileting, which includes using toilet, bedpan, or urinal 2 Putting on and taking off upper body clothing 2 Taking care of personal grooming such as brushing teeth 3 Eating meals 3 Daily Activity - Raw Score 14 Scores from AM-PAC flowsheet Daily Activity - T-Scale Score 35.55 Daily Activity Percent Disability 53.86 % ACCOUNT DIRECTOR * [facility] - Paolo Acevedo, PharmD - 10/09/2022 2:20 PM KEY ACCOUNT DIRECTOR Images from the original note were not included. [id number] Apixaban Oral Tablet Brands: Eliquis Uses This medicine is used for the following purposes: blood disorder prevent blood clots blood clot Instructions This medicine may be taken with or without food. It is very important that you take the medicine at about the same time every day . It will work best if you do this. Store at room temperature away from heat, light, and moisture. Do not keep in e bathroom. It is important that you keep taking each dose of this medicine on time even if you are feeling well. If you forget to take a dose on time, take it as soon as you remember. If it is almost time for the next dose, do not take the missed dose. Return to your ander l schedule. Do not take 2 doses at one time. Drug interactions can change how medicines work or increase risk for side effect s. Tell your health care providers about all medicines taken. Include prescripti on and [id number] medicines, vitamins, and herbal medicines. Speak with yo doctor or pharmacist before starting or stopping any medicine. It is very important that you follow your doctor's instructions for all blood te sts. Cautions This medicine may cause serious bleeding problems in patients taking blood thinn er medications. Follow your doctor's instructions carefully to monitor your bloo d lab tests if you are on blood thinners. Tell your doctor and pharmacist if you ever had an allergic reaction to a medici ne. This medicine may cause serious bleeding from the stomach or bowels. Stop this m edicine and call your doctor immediately if you see any signs of bleeding. Bleed ing can cause pain in the stomach, vomiting up liquid that looks like coffee ana unds, and red or dark tarry stools. There is an increased risk of bleeding while on this medicine, please tell your doctor or nurse if you notice any excessive bleeding or bruising. Do not use the medication any more than instructed. Speak with your doctor before taking any medicine with aspirin. Please check with your doctor before drinking alcohol while on this medicine. Tell the doctor or pharmacist if you are , planning to be , or b reastfeeding. Do not breastfeed while on this medicine. This medicine can hurt a new baby in the womb. If you become while on t his medicine, tell your doctor immediately. Your doctor may switch you to a diff erent medicine. Do not take Lakeside's wort while on this medicine. Call your doctor right away if you notice any unusual bleeding or bruising. Do not share this medicine with anyone who has not been prescribed this medicine . Some patients have serious side effects from this medicine. Ask your pharmacist to show you the information from the Food and Drug Administration (FDA) and disc uss it with you. Always refill this medicine before it runs out. Side Effects The following is a list of some common side effects from this medicine. Please s peak with your doctor about what you should do if you experience these or other side effects. increased risk of bleeding nosebleeds Call your doctor or get medical help right away if you notice any of these more serious side effects: bleeding or bruising coughing up blood or vomit that looks like coffee grounds fainting numbness or tingling in hands and feet severe or persistent headache sudden leg pain, swelling, warmth or redness loss of movement anywhere on the body shortness of breath bloody or dark, tarry stools symptoms of stroke (such as one-sided weakness, slurred speech, confusion) difficulty swallowing unusual or unexplained tiredness or weakness blood in urine blurring or changes of vision A few people may have an allergic reaction to this medicine. Symptoms can includ e difficulty breathing, skin rash, itching, swelling, or severe dizziness. If yo u notice any of these symptoms, seek medical help quickly. Extra Please speak with your doctor, nurse, or pharmacist if you have any questions ab out this medicine. https://[email or web address].Able Device/[email or web address]/fdbpem/[email or web address] IMPORTANT NOTE: This document tells you briefly how to take your medicine, but i t does not tell you all there is to know about it. Your doctor or pharmacist may give you other documents about your medicine. Please talk to them if you have a ny questions. Always follow their advice. There is a more complete description o f this medicine available in [place]. Scan this code on your smartphone or table t or use the web address below. You can also ask your pharmacist for a printout. If you have any questions, please ask your pharmacist. The display and use of t his drug information is subject to Terms of Use. Copyright(c) 2022 [employer]. 3089-4035 [employer]. All rights reserved. This information is not intended as a substitute for professional medical care. Always follow your healthcare professional's instructions. ACCOUNT DIRECTOR * End of Shift Note - Miranda Carey RN - 10/09/2022 2:17 PM CST End of Shift Summary and Plan of Care Today's Events: Bowel movements have slowed down. Protocol dc'd at this time. Lasix being held 10/10/22 d/t cr elevation Significant Labs: Cr 1.83 Discharge Plan: Transfer to ARU 10/10/22. Goals per Patient Condition Fall Prevention Plan - Patient will remain free from injury related to falls. Se e the Daily cares/safety flowsheet for intervention documentation. Skin Integrity Plan - Patient skin integrity maintained. See integumentary flows heet for intervention documentation. Goals/Plan for Shift Patient/Family stated goal for shift: Shower Nursing goal for shift: Patient will remain injury free throughout shift Plan: Frequent rounding; answer call light in a timely manner Goals/Plan for Hospital Stay Patient/Family stated goal for hospital stay: to be able to breath better, figpaulette e out this stroke Nursing goal for hospital stay: maintain stabke VS, improve neuro status Plan: give meds as ordered ACCOUNT DIRECTOR * End of Shift Note - Amanda Jacobson RN - 10/09/2022 2:50 AM CST End of Shift Summary and Plan of Care Patient iscalm & cooperative; VS stable, (blood pressures continue to be soft & patient remains asymptomatic), RA. Denies any CP, SOB, or nausea;resting in bed comfortably, X 2 incontinence stool episode. Noacute distress noted throughout shift; will continue to monitor. Goals per Patient Condition Fall Prevention Plan - Patient will remain free from injury related to falls. Se e the Daily cares/safety flowsheet for intervention documentation. Skin Integrity Plan - Patient skin integrity maintained. See integumentary flows heet for intervention documentation. Goals/Plan for Shift Patient/Family stated goal for shift: I just want to rest Nursing goal for shift: Patient will remain injury free throughout shift Plan: Frequent rounding; answer call light in a timely manner Goals/Plan for Hospital Stay Patient/Family stated goal for hospital stay: to be able to breath better, figpaulette e out this stroke Nursing goal for hospital stay: maintain stabke VS, improve neuro status Plan: give meds as ordered ACCOUNT DIRECTOR * End of Shift Note - Miranda Carey RN - 10/08/2022 12:43 PM CST End of Shift Summary and Plan of Care Today's Events: + cozaar, monitoring BP + eliquis CTH: no hemorrhage. (-) Cardiology s/o Discharge Plan: To Rehab. ARU bed avail Tuesday 10/10 [place] [address] [address] Goals per Patient Condition Fall Prevention Plan - Patient will remain free from injury related to falls. Se e the Daily cares/safety flowsheet for intervention documentation. Skin Integrity Plan - Patient skin integrity maintained. See integumentary flows heet for intervention documentation. Goals/Plan for Shift Patient/Family stated goal for shift: shower Nursing goal for shift: VSS; bowel protocol; pt comfort and safety. Rest. Plan: Monitor VS, labs, tele, pain, I and O. Bowel protocol. Fall precautions. C luster cares. Goals/Plan for Hospital Stay Patient/Family stated goal for hospital stay: to be able to breath better, figpaulette e victor manuel this stroke Nursing goal for hospital stay: maintain stabke VS, improve neuro status Plan: give meds as ordered ACCOUNT DIRECTOR * Therapy Note - Yasmine Hall PTA - 10/08/2022 11:13 AM CST 10/08/22 1002 PT Visit Info Patient/Family Reports Pt in bed upon entry, agreeable to work with PT this date . PT Received On 10/08/22 Time Calculation Start Time 1002 Stop Time 1026 Total Treatment time (min) 24 min Timed Minutes Ther act 15, gait 9 Precautions Fall Risk Yes Isolation None Supplemental Oxygen RA PPE Used Yellow precautions (Level 3 mask, eye protection, and gloves) Cognition Overall Cognitive Status WFL Communication Communication No Limitation Bed Mobility Supine to Sit Min assist to left;Verbal cueing required;Bed Rail;HOB elevated Bed Mobility Comments Pt required Min A to advance hips towards EOB. Transfers Assistive Device Rolling walker Sit to Stand Transfers Mod assist;Verbal cueing required;Assistive Device Stand to Sit Transfers Min assist;Verbal cueing required;Assistive Device Stand Pivot Transfers Moderate assistance;Verbal cueing required;Assistive Devic e;Safety concerns Gait Gait Distance (Feet) 15x2 Assistive Device Rolling walker Gait Level Surface Assistance Moderate;2 person assist;Verbal cueing required Pattern L Foot drag;L Decreased stance time;L Genu recurvatum;Ataxic;R Decreased weight shift;L Decreased toe off;Increased lateral deviation;Decreased base of support;R Decreased step length;L Decreased step length;Decreased yvette Gait Comments Pt required assistance advancing RW with each step, assistance hol ding L UE in place. Pt takes seated rest break between bouts of amb. First bout Mod A +2 for safety, progressing to Mod A +1 with second bout of amb with second person SBA as needed. Balance Activity Sitting Surface EOB;on chair/recliner Sitting Activity static;wt shift;Other (comment) (Ther ex) Sitting Time 11-15 min Sitting Assistance min assist;w/UE support (CGA) Standing Surface level surface Standing Activity static;wt shift;ADL Standing Time 0-5 min Standing Assistance mod assist;w/UE support Standing Activity Comments Brief change and lobito care complete while standing, p t presents with increased R lateral lean, v.c. to wt shift to L LE while standin g. Activity Tolerance Activity Tolerance fair LE Ther Ex Ankle pump Bilateral;6 - 10 reps;Verbal cues;Supine;Sitting (x2 reps) Heel slide Bilateral;6 - 10 reps;Verbal cues;Supine LAQ Bilateral;6 - 10 reps;Verbal cues;Sitting Hip Flexion Bilateral;6 - 10 reps;Verbal cues;Sitting UE Ther Ex Other Pt squeezing "worm" in room for hand exercises. Patient Education Patient Education PT POC, safety with amb, transfers, ther ex while sitting in c hair. Response to education verbalizes understanding;needs further review *ASSESSMENT Learning Barriers Physical barriers Response to Treatment Fair;Tolerated well Response to Treat Comments Pt positioned in recliner with pillows under B UE for support. Assistance Needed Frequent verbal cues (26-50%);Frequent tactile cues (26-50%) Problem List Activity limitations;Activity tolerance;Balance;Bed mobility;Body f unctions;Caregiver education;Decreased gait speed;Gait;Participation restriction s;Precaution education;Safety;Stairs;Strength;Transfers;W/C mobility;Propriocept ion Barriers to Discharge Lives alone;Requires caregiver assist;Safety concerns;Yuliya ent apprehension GOALS Goals Bed Mobility;Transfers;Gait distance;Strength STG;Activity tolerance;W/C l evel mobility Plan Pt/Family Goal to walk;to go home;back to normal PT Treatment Interventions Functional transfer training;LE strengthening/ROM;End urance training;Patient/family training;Equipment eval/education;Bed mobility;Ga it training;Balance activities;Dual tasking activities;Safety training;Progressi ve Mobility;Neuromuscular re-ed;Curb/stair training;Compensatory education;Coord ination activities;w/c mobility Progress Progressing toward goals PT Frequency Daily PT Plan for next treatment progress transfers, balance, and gait. PT Nursing Communication Mod A +1-2 with KANDY GUTIÉRREZ daily. Discharge Recommendations Based on Today's Functional Status PT Plan Continued PT during acute admission;Rehab Medicine Consult;Unsafe to DC home PT Plan need for Post Acute Care Continue high intensity progression of PT in po st-acute care Equipment Recommended Walker Equipment Recommend Purpose to reduce fall risk;to improve balance;to promote fu nctional mobility;to improve ADLs;to promote healing;to promote proper gait sequ ence;improve activity tolerance Care Coordination Care Coordination Communication with RN, x2 tech assist. Fall Prevention Interventions Fall Prevention Interventions in place before leaving patient: Proper footwear;C hair alarm activated;Call light in reach;Personal items/tray table in reach;Sitt ing in recliner chair with legs elevated AM-PAC Basic Mobility Turning over in bed without bedrails 2 Sitting down on and standing up from a chair with arms 2 Moving from lying on back to sitting on the side of the bed 2 Moving to and from a bed to a chair 2 Need assistance to walk in hospital room 2 Climbing 3-5 steps with a railing 1 Basic Mobility - Raw Score 11 Scores from AM-PAC flowsheet Basic Mobility - T-Scale Score 30.25 Basic Mobility Percent Disability 66.76 % ACCOUNT DIRECTOR * Discharge Planning - Yanelis Barba LMSW - 10/08/2022 9:14 AM CST Discharge Planning Interventions General Discharge Note Anticipated discharge disposition: Acute Rehab Facility/Unit Care Progression Plan: ARU bed avail Tuesday 10/10 Call received from November ([phone]) from [facility] r bed avail on Tuesday 10/10 due to limited weekend staffing Updates sent via [employer] for ARU Referrals: Considering - Status Referral(s): Destination [place] [address] [address] Resource for: Depression, Financial Resource Strain, [facility] Physical Activity Anticipated needs/services for patients discharge: Living Arrangement (pulls from initial assessment) Support System (pulls from initial assessment) Is the prior level of care appropriate and safe? Short term discharge goals (moving to initial assessment) exterminator helper termite discharge goals (moving to initial assessment) Current Services: Home Care Services (flowsheet in initial assessment) Type of Home Care Services (flowsheet in initial assessment that cascades from H ome Care Services, so will show blank if answer was no) Patient's preferred [facility] post-discharge list provided and discussed quality ratin gs: Home Health, Shelter Facility, LTAC Physical Therapy Location: Facility Occupational Therapy Location:Facility Speech Therapy Location:Facility Yanelis Leonardo LMSW Real Estate Transaction Coordinator ACCOUNT DIRECTOR * End of Shift Note - Anahy Kumari RN - 10/08/2022 5:59 AM CST End of Shift Summary and Plan of Care No significant event this shift. Goals per Patient Condition Fall Prevention Plan - Patient will remain free from injury related to falls. Se e the Daily cares/safety flowsheet for intervention documentation. Skin Integrity Plan - Patient skin integrity maintained. See integumentary flows heet for intervention documentation. Goals/Plan for Shift Patient/Family stated goal for shift: get some sleep Nursing goal for shift: VSS; bowel protocol; pt comfort and safety. Rest. Plan: Monitor VS, labs, tele, pain, I and O. Bowel protocol. Fall precautions. C luster cares. Goals/Plan for Hospital Stay Patient/Family stated goal for hospital stay: to be able to breath better, figur e out this stroke Nursing goal for hospital stay: maintain stabke VS, improve neuro status Plan: give meds as ordered ACCOUNT DIRECTOR * End of Shift Note - Grace Ayala RN - 10/07/2022 6:45 PM CST End of Shift Summary and Plan of Care Pt c/o constipation majority of day. Bowel protocol followed. Glycerin supposito ry and soap suds enema given and pt manually disimpacted with some relief. RN re quested pt's family to bring in some prune juice, which was warmed and then give n with milk of Mg. Pt was able to have a large BM this evening and states she is feeling much better. VSS on RA. Neuro status unchanged. Only c/o abd cramping a ssociated with constipation. SR/ST with BBB on tele. Meds adjusted by cardiology . Plan for [facility] 10/08. SW assisting with d/c planning. Goals per Patient Condition Fall Prevention Plan - Patient will remain free from injury related to falls. Se e the Daily cares/safety flowsheet for intervention documentation. Skin Integrity Plan - Patient skin integrity maintained. See integumentary flows heet for intervention documentation. Goals/Plan for Shift Patient/Family stated goal for shift: Have a bowel movement. Nursing goal for shift: VSS; bowel protocol; pt comfort and safety. Rest. Plan: Monitor VS, labs, tele, pain, I and O. Bowel protocol. Fall precautions. C luster cares. Goals/Plan for Hospital Stay Patient/Family stated goal for hospital stay: to be able to breath better, figur e out this stroke Nursing goal for hospital stay: maintain stabke VS, improve neuro status Plan: give meds as ordered ACCOUNT DIRECTOR * Therapy Note - Paula Gomez PTA - 10/07/2022 5:35 PM CST 10/07/22 1507 Visit Type Visit Type Treatment PT Visit Info Patient/Family Reports Pt supine in bed upon arrival. Excited that she has passe d a partial BM today. Endorses fatigue from enemas and toileting. PT Received On 10/07/22 Time Calculation Start Time 1507 Stop Time 1538 Total Treatment time (min) 31 min Timed Minutes 10 NMR, 21 ther act Precautions Weight Bearing Status Weight Bearing As Tolerated LLE;Weight Bearing As Tolerate d RLE;Weight Bearing As Tolerated LUE;Weight Bearing As Tolerated RUE Prior Function Level of [place] Independent with ADLs;Independent with functional transfer s;Independent with ambulation;Independent with homemaking Receives Help From Family Vocational Retired Cognition Overall Cognitive Status WFL Attention Span Attends with cues to redirect Following Commands Follows one step commands with repetition;Follows one step co mmands with increased time;75% Safety Judgment Decreased awareness of need for assistance Insight Decreased awareness of deficits Perception Inattention/Neglect Cues to attend left visual field;Cues to attend to left side of body Initiation Hand over hand to initiate tasks Motor Planning Requires increased time;Cues for sequencing Communication Communication No Limitation Bed Mobility Supine to Sit Min assist to left;Verbal cueing required;Bed Rail;HOB elevated Sit to Supine Mod assist to right Transfers Assistive Device Rolling walker Sit to Stand Transfers Mod assist;Verbal cueing required;Assistive Device Stand to Sit Transfers Max assist;Assistive Device;Safety concerns;Verbal cueing required Toilet transfer Max assist to left;Verbal cueing required;Safety concerns Gait Gait Distance (Feet) 15x2 Assistive Device Rolling walker Gait Level Surface Assistance Maximal;Verbal cueing required Pattern L Foot drag;L Decreased stance time;L Genu recurvatum;Ataxic;R Decreased weight shift;L Decreased toe off;Increased lateral deviation;Decreased base of support;R Decreased step length;L Decreased step length;Decreased yvette Gait Comments Required assistance advancing RW and VC for increased, exaggarated L step length. Pt fatigued after toileting and required toilet > chair > bed tx d/t safety concerns. Gait Activity Gait Surface level surface Gait Activity room mobility Gait Time 0-5 min Gait Assistance max assist;w/UE support Gait Activity Comments Hand attachment on RW for LUE Balance Sitting Static 2;(-) Standing Static 2;(-) Balance Activity Sitting Surface on toilet Sitting Activity static;wt shift Sitting Time 6-10 min Sitting Assistance mod assist;w/UE support Sitting Activity Comments Pt leaning on therapist during toileting. Unable to si t upright as pt preceives to lean to R side. Standing Surface level surface Standing Activity static;wt shift (lateral wt shifting in mirror) Standing Time 0-5 min Standing Assistance mod assist;w/UE support Standing Activity Comments Longest static tand at 54 sec. Neuromuscular Education Neuromuscular Re-education Weight bearing;Postural re-education;Verbal cues;Tact ile cues Neuromuscular re-education comments Standing in mirror c/ visible midline, wt sh ifting, and increasing WB on LLE. Activity Tolerance Activity Tolerance fair;- Proprioception Proprioception Impaired Proprioception Area LUE;LLE Patient Education Patient Education PT POC, safety with transfers Response to education verbalizes understanding;needs further review *ASSESSMENT Learning Barriers Physical barriers Response to Treatment Fair;Impulsive Response to Treat Comments Pt will freq attempt to sit when not safe. EDU given on safety. Able to amb in room, but fatigued quickly at this date. Assistance Needed Continual verbal cues (51-75%);Frequent tactile cues (26-50%); Maximum assist with exercise Problem List Activity limitations;Activity tolerance;Balance;Bed mobility;Body f unctions;Caregiver education;Decreased gait speed;Gait;Participation restriction s;Precaution education;Safety;Stairs;Strength;Transfers;W/C mobility;Propriocept ion Plan PT Treatment Interventions Functional transfer training;LE strengthening/ROM;End urance training;Patient/family training;Equipment eval/education;Bed mobility;Ga it training;Balance activities;Dual tasking activities;Safety training;Progressi ve Mobility;Neuromuscular re-ed;Curb/stair training;Compensatory education;Coord ination activities;w/c mobility PT Frequency Daily PT Plan for next treatment progress transfers, balance, and gait. PT Nursing Communication Mod A stand pivot to R side, blocking L knee Discharge Recommendations Based on Today's Functional Status PT Plan Continued PT during acute admission;Rehab Medicine Consult;Unsafe to DC home PT Plan need for Post Acute Care Continue high intensity progression of PT in po st-acute care Equipment Recommended Walker Equipment Recommend Purpose to reduce fall risk;to improve balance;to promote fu nctional mobility;to improve ADLs;to promote healing;to promote proper gait sequ ence;improve activity tolerance Fall Prevention Interventions Fall Prevention Interventions in place before leaving patient: Family present;Pe rsonal items/tray table in reach;In bed with bed alarm activated;Call light in r each AM-PAC Basic Mobility Turning over in bed without bedrails 2 Sitting down on and standing up from a chair with arms 2 Moving from lying on back to sitting on the side of the bed 2 Moving to and from a bed to a chair 2 Need assistance to walk in hospital room 2 Climbing 3-5 steps with a railing 1 Basic Mobility - Raw Score 11 Scores from AM-PAC flowsheet Basic Mobility - T-Scale Score 30.25 Basic Mobility Percent Disability 66.76 % ACCOUNT DIRECTOR * Hospital Course - Michael Norwood MD - 10/07/2022 3:50 PM CST 77 y.o. female w/ PMHx TAVR (09/22/22), HFpEF, HTN, DM2, MIS not compliant with CP AP, RLS who presented with CHF, possible PNA and apparently had a CVA during tra nsit. Presented to OSH w/ hypoxia, PENG (Cr 1.93), BNP 3500, WBC 18K. CXR w/ b/l infilt rates. Complicating her presentation is a newly reduced EF of <20% since TAVR. She was started on Abx and transferred to [facility]. On arrival to [facility] from [facility] she was noted to have diffuse L- weakness, imaging showed multiple small areas of infarct. It appears that since her TAVR on 09/22/22, she has persistently been hypotensive and during the night P TA, upon turning over in bed, she noted the left side weak. Seen by neurology and CTH showed Numerous small cortical infarcts bilaterally, s uggestive of embolic etiology. CTA h/perfusion neg for emergent large vessel occlusion or perfusion abnormality . Small multiple acute to subacute infarcts in the right frontal, left parietal, left occipital lobes, and bilateral cerebellum, likely embolic etiology. CTA neck - Beaded appearance to the bilateral upper cervical ICA suggesting fibr omuscular dysplasia Echo with EF 23%, severely dilated LV, akinesis of basal-mid inferior and septal fink with hypokinesis of remaining segments, TAVR with normal function, mild M S with mild to mod MR MRI head Multifocal acute infarcts involving the bilateral frontoparietal and oc cipital lobes and the bilateral cerebellar hemispheres. Pattern suggestive of wa tershed ischemia and/or multivascular territory embolic event. Associated trace type I petechial hemorrhage in the right frontoparietal and left parietal lobes. Trace enhancement in the infarct in the right frontoparietal region which may relate to subacute infarct. Needs repeat CTH on 10/08 to determine if appropriate to start anticoag given hem orrhagic transformation on initial imaging. Swallow eval noted mild pharyngeal dysphagia. MBSS noted ok for regular solids a nd think liquids She was started on Lasix 40 IV but appeared to become rapidly euvolemic and wean ed to room air. Seen by Cardiology and started on plavix/ASA in setting of TAVR. She was in PENG on admission with baseline Cr 1.1. Once ready to start anticoagulation, d/w Cardiology what to do with ASA/plavix ACCOUNT DIRECTOR * Therapy Note - Lyn Clifford OT - 10/07/2022 3:12 PM CST 10/07/22 1200 Visit Type Visit Type Treatment OT Visit Info Initial OT Visit On 10/04/22 Assessed for Rehab Yes Past medical history reviewed through chart review: Yes Referral Reason Ot evaluation and treatment Medical Dx per Physician Acute on chronic HF, Acute CVA Comorbidities pertaining to therapy diagnosis Past Medical History: Diagnosis Date Aortic stenosis Congestive heart failure (CHF) (HCC) Diabetes mellitus (HCC) Hyperlipidemia Hypertension Neuropathy Patient/Family Reports Pt semi supine in bed upon arrival, reports fatigue but i s agreeable to OT treatment OT Received On 10/07/22 Total Treatment Time (min) Start Time 1017 Stop Time 1047 Total Treatment time (min) 30 min Timed Minutes ADL 30 Precautions Weight Bearing Status Weight Bearing As Tolerated LLE;Weight Bearing As Tolerate d RLE;Weight Bearing As Tolerated LUE;Weight Bearing As Tolerated RUE Back Precautions No Fall Risk Yes Isolation None Supplemental Oxygen RA Other Purewick Prior Function Level of [place] Independent with ADLs;Independent with functional transfer s;Independent with ambulation;Independent with homemaking Receives Help From Family Vocational Retired Hobbies Watch TV Comments Prior to TAVR on 09/22, patient was Independent without a device for hous ehold and community mobility, ADLs, and IADLs. Daughters live in [place] and are supportive, one is an RN and still works. Still drives, denies recent falls. Pain Assessment Pain Score (No score given, however pt reports feeling very uncomfortable due to constipati on and cramping) ADL Grooming Minimal Assistance Grooming Type of Task Brushing Teeth;Washing, Rinsing and/or Drying the face;Was dillan, Rinsing and/or Drying the hand Grooming Type of Assistance Setup of assistive devices for grooming;Setup of ana oming supplies;Initial preparation of equipment;Handing of equipment to patient; Physical assistance;Verbal cues;Safety Grooming Location of Task Seated at the sink Grooming comments Pt required VC and TC to incorporate L UE and attend to left s mack of counter. VC also given to locate grooming supplies on the left side of co unter Toileting Maximal Assistance;2 person assist (x1 for steading and balance, x1 for hygiene) Toileting Type of Assistance Setup of equipment;Steadying assistance for balance ;Pants up assist;Pants down assist;Perineal hygiene;Safety concerns Pants Down Assistance Maximal Assistance Pants Up Assistance Maximal Assistance Toileting Hygiene Assistance Maximal Assistance Toilet Transfer Maximal Assistance Toilet Transfer Equipment Standard toilet;Grab bar;Roller walker Toilet Transfer Method Ambulating Toilet transfer comments Transfer to recliner for return due to fatigue and pain Perception Inattention/Neglect Cues to attend left visual field;Cues to attend to left side of body Initiation Appears intact Motor Planning Requires increased time;Cues for sequencing Perseveration Not present Bed Mobility Supine to Sit Min assist to left;Verbal cueing required;Bed Rail;HOB elevated Transfers Assistive Device Rolling walker Sit to Stand Transfers Max assist;Verbal cueing required;Safety concerns Stand to Sit Transfers Max assist;Verbal cueing required;Safety concerns Stand Pivot Transfers Maximum assistance;Verbal cueing required;Safety concerns Toilet transfer Max assist to left;Verbal cueing required;Safety concerns Balance Activity Sitting Surface on toilet Sitting Activity static;wt shift;ADL Sitting Time 11-15 min Sitting Assistance min assist;w/UE support Sitting Activity Comments VC to keep upright. occasional Min A to steady and rep osition for safety Standing Activity static;wt shift;ADL Standing Time 0-5 min Standing Assistance mod assist;w/UE support Gait Activity Gait Surface level surface Gait Activity room mobility Gait Time 0-5 min Gait Assistance mod assist;w/UE support (x2) Activity Tolerance Activity Tolerance poor Activity Tolerance Comments Limited by pain and fatigue Patient Education Patient Education OT POC, importance of L UE exercise and activity, pt provided build up .net architect and L CVA handle for walker Response to education verbalizes understanding;needs further review Assessment Learning Barriers Pain;Visual Deficit Response to Treatment Fair Assistance Needed Continual verbal cues (51-75%);Frequent tactile cues (26-50%); Maximum assist with exercise Barriers to Discharge Lives alone;Requires caregiver assist;Safety concerns;Yuliya ent apprehension Problem List/Impairments Decreased IADL participation;Decreased ADL participatio n;Decreased activity tolerance;Decreased functional use of upper extremities;Dec reased functional mobility;Decreased safety awareness;Decreased strength;Impaire d sensation;Impaired coordination;Impaired balance;Physical limitation;Decreased A/PROM Timeframe Timeframe STG 3 visits Timeframe LTG 6 visits GOALS Goals Toilet Transfers;Strength;Stand Balance Toilet Transfer Goals Toilet Transfer STG Goal Status Goal continues Toilet Transfer STG Minimal Assistance Toilet Transfer LTG Goal Status Goal continues Toilet Transfer LTG Setup/Supervision Stand Balance Goals Stand Balance STG Goal Status Goal continues Stand Balance STG 2/5 supports self independently with both UEs Stand Balance LTG Goal Status Goal continues Stand Balance LTG 4/5 moves/returns trunk midpoint 1-2 inches in multiple planes Strength Goals Strength STG Goal Status Goal continues Strength STG Left;Increase 1/2 muscle grade;In prep for ADLs;In prep for functio nal tasks Strength LTG Goal Status Goal continues Strength LTG Left;Increase 1 muscle grade;In prep for ADLs;In prep for functiona l tasks *PLAN Patient/Caregiver Goal to get better Pt/Family involved in Plan of Care yes OT Treatment Interventions ADL retraining;Functional transfer training;UE streng thening/ROM;Functional activity tolerance;Patient/family training;Equipment eval uation/education;Compensatory technique education OT Frequency 3-5x/wk Discharge Recommendations Based on Today's Functional Status OT Plan Continued OT during acute admission OT Plan need for Post Acute Care Continue high intensity progression of OT in po st-acute care Fall Prevention Interventions Fall Prevention Interventions in place before leaving patient: Proper footwear;C hair alarm activated;Call light in reach;Personal items/tray table in reach;Sitt ing in recliner chair with legs elevated;Family present AM-PAC Daily Activity Putting on and taking off lower body clothing 2 Bathing (including washing, rinsing, drying) 2 Toileting, which includes using toilet, bedpan, or urinal 2 Putting on and taking off upper body clothing 2 Taking care of personal grooming such as brushing teeth 3 Eating meals 3 Daily Activity - Raw Score 14 Scores from AM-PAC flowsheet Daily Activity - T-Scale Score 35.55 Daily Activity Percent Disability 53.86 % ACCOUNT DIRECTOR * Nutrition Note - Rachel Manning RD LD - 10/07/2022 2:54 PM CST Nutrition Brief Note [facility] DIAGNOSIS & INTERVENTION: DIAGNOSIS 1 Nutrition Diagnosis 1: No acute nutrition dx--f/u in 5-7 days Intervention/Plan 1a: Pt states she's eating much better than she was before. Pe r documentation she is eating 90% of 5 recent meals documented. She likes and is drinking her strawberry ensures BID, RD to continue to send. Malnutrition criteria: Please see previous RD's note for dx RD will continue to follow Electronically signed by Rachel Manning 10/07/2022 2:54 PM ACCOUNT DIRECTOR * Discharge Planning - Quyen Jain LMSW - 10/07/2022 11:48 AM CST Discharge Planning Interventions General Discharge Note Anticipated discharge disposition: Acute Rehab Facility/Unit Care Progression Plan: ARU-auth started Additional discharge planning information: Physician states that patient ready for DC over the weekend. Understands that au th may not be until Monday. SW called November w/ [facility] [phone] re auth status. Still hasn't heard from insurance. Will continue to follow. Addendum 10/07/2022 at 12:58 PM Received call from November, . States patient received auth [facility]. Called back re DC plan. Explained on secure VM that patient could possibly go ov er the weekend after repeat CT. Placed patient on wknd DC list to follow up with Estela/physician over the weeken d to coordinate DC. Updated family & patient at bedside. Addendum 10/07/2022 at 2:54 PM KENNY received call from November, stating patient could DC on Monday, . November asked about transportation to facility. Provided report number, & fax number for DC orders: [phone]. Voalted RN to see what transportation would work best for patient. States a W/C van would be good. Called November to relay information. Left . DC packet made. DC time & mode of transportation will need to be added. Addendum 10/07/2022 at 3:03 PM Estela called back and spoke with KENNY. States that Yanel[facility] can call her cell num jerardo, or the report number with WC information. Quyen Jain, 10/07/2022 11:54 AM ACCOUNT DIRECTOR * End of Shift Note - Betty Ibrahim RN - 10/06/2022 6:09 PM CST End of Shift Summary and Plan of Care Pt alert and oriented x4. VSS. Pt denies pain. Pt up to chair. Pt continuous to not have BM, bowel protocol administered. Q4 neuros intact. Pt resting in bed co mfortably. Goals per Patient Condition Fall Prevention Plan - Patient will remain free from injury related to falls. Se e the Daily cares/safety flowsheet for intervention documentation. Skin Integrity Plan - Patient skin integrity maintained. See integumentary flows heet for intervention documentation. Goals/Plan for Shift Patient/Family stated goal for shift: No goal stated Nursing goal for shift: Stable VS/labs/tele, promote rest and safe environment Plan: Monitor VS/labs/tele, ensure restful and safe environment (cluster cares/d immed lights, safety measures in place, call light in reach) Goals/Plan for Hospital Stay Patient/Family stated goal for hospital stay: to be able to breath better, figur e out this stroke Nursing goal for hospital stay: maintain stabke VS, improve neuro status Plan: give meds as ordered ACCOUNT DIRECTOR * Therapy Note - Paula Gomez, [employer] - 10/06/2022 4:56 PM CST 10/06/22 1433 Visit Type Visit Type Treatment PT Visit Info Patient/Family Reports Pt supine in bed upon arrival, voices concerns about not passing BM since last week. Endorses abd pain and feeling of BM buildup. Agreeab le to amb to toilet to attempt passing BM. PT Received On 10/06/22 Time Calculation Start Time 1433 Stop Time 1501 Total Treatment time (min) 28 min Timed Minutes 10 gait, 18 ther act Precautions Weight Bearing Status Weight Bearing As Tolerated LLE;Weight Bearing As Tolerate d RLE;Weight Bearing As Tolerated LUE;Weight Bearing As Tolerated RUE Other Purewick Home Living Type of Home Apartment Home Layout One level Lives With Alone Prior Function Level of [place] Independent with ADLs;Independent with functional transfer s;Independent with ambulation;Independent with homemaking Receives Help From Family Vocational Retired Cognition Overall Cognitive Status WFL Perception Inattention/Neglect Cues to attend to left side of body;Cues to maintain midline in sitting;Cues to attend left visual field Initiation Appears intact Bed Mobility Supine to Sit Mod assist to left Transfers Assistive Device Rolling walker Sit to Stand Transfers Mod assist;Verbal cueing required Stand to Sit Transfers Mod assist;Verbal cueing required Bed to Chair Verbal cueing required;Assistive Device;Safety concerns;Max assist to left Stand Pivot Transfers Maximum assistance;Verbal cueing required (has harder time pivoting to L side d/t LLE weakness) Gait Gait Distance (Feet) 10, 10, 10 Assistive Device Rolling walker Gait Level Surface Assistance Maximal;Verbal cueing required Pattern L Foot drag;L Decreased stance time;L Genu recurvatum;Ataxic;R Decreased weight shift;L Decreased toe off;Increased lateral deviation;Decreased base of support;R Decreased step length;L Decreased step length;Decreased yvette Gait Comments Set up chairs throughout room for pt to rest at. Able to amb 10 ft x3 to bathroom c/ seated rest breaks in between. Required assistance advancing RW, LLE and assisting on L hand gatekeeper to RW. Pt fatigued after toileting and requ ired toilet > chair > recliner tx d/t safety concerns. Gait Activity Gait Surface level surface Gait Activity room mobility Gait Time 6-10 min Gait Assistance max assist;w/UE support Balance Activity Sitting Surface EOB;on toilet Sitting Activity static;wt shift Sitting Time 6-10 min Sitting Assistance min assist;w/UE support Neuromuscular Education Neuromuscular Re-education Weight bearing;Postural re-education;Verbal cues;Tact ile cues Proprioception Proprioception Impaired Proprioception Area LUE;LLE Patient Education Patient Education PT POC, gait sequencing Response to education verbalizes understanding;needs further review *ASSESSMENT Learning Barriers Physical barriers Response to Treatment Good;Tolerated well;Improved mobility;Increased activity t olerance Response to Treat Comments Able to amb in room and was able to increase activity at this date. Assistance Needed Continual verbal cues (51-75%);Frequent tactile cues (26-50%); Maximum assist with exercise Problem List Activity limitations;Activity tolerance;Balance;Bed mobility;Body f unctions;Caregiver education;Decreased gait speed;Gait;Participation restriction s;Precaution education;Safety;Stairs;Strength;Transfers;W/C mobility;Propriocept ion Barriers to Discharge Lives alone;Requires caregiver assist;Safety concerns;Yuliya ent apprehension Plan PT Treatment Interventions Functional transfer training;LE strengthening/ROM;End urance training;Patient/family training;Equipment eval/education;Bed mobility;Ga it training;Balance activities;Dual tasking activities;Safety training;Progressi ve Mobility;Neuromuscular re-ed;Curb/stair training;Compensatory education;Coord ination activities;w/c mobility PT Frequency Daily PT Plan for next treatment progress transfers, sitting balance, and trial RW PT Nursing Communication Mod A stand pivot to R side, blocking L knee Discharge Recommendations Based on Today's Functional Status PT Plan Continued PT during acute admission;Rehab Medicine Consult;Unsafe to DC home PT Plan need for Post Acute Care Continue high intensity progression of PT in st-acute care AM-PAC Basic Mobility Turning over in bed without bedrails 2 Sitting down on and standing up from a chair with arms 2 Moving from lying on back to sitting on the side of the bed 2 Moving to and from a bed to a chair 2 Need assistance to walk in hospital room 2 Climbing 3-5 steps with a railing 1 Basic Mobility - Raw Score 11 Scores from AM-PAC flowsheet Basic Mobility - T-Scale Score 30.25 Basic Mobility Percent Disability 66.76 % ACCOUNT DIRECTOR * Assessment & Plan Note - Jer Odonnell MD - 10/06/2022 2:15 PM CSTAssociated Problem(s): RLS (restless legs syndrome) -Continue pramipexole. ACCOUNT DIRECTOR * Assessment & Plan Note - Jer Odonnell MD - 10/06/2022 2:15 PM CSTAssociated Problem(s): S/P TAVR (transcatheter aortic valve replacement) -S/p TAVR on 09/22/22. -Cardiology following; appreciate their help. -With no prior history of coronary disease, cardiology okay with proceeding with DOAC only without aspirin. ACCOUNT DIRECTOR * Discharge Planning - Quyen Jain LMSW - 10/06/2022 12:00 PM CST Discharge Planning Interventions General Discharge Note Anticipated discharge disposition: Acute Rehab Facility/Unit Care Progression Plan: ARU- needs auth Additional discharge planning information: Received message from Juliet [facility] that both ARU choices are able to clinically a ccept patient. Spoke with patient at bedside with daughter, Soniya. States that top choice is [facility]. Called November, w/ [facility]. Started auth. Updated physician and RN. Will continue to follow. Quyen Jain, 10/06/2022 12:02 PM ACCOUNT DIRECTOR * Therapy Note - Lyn Clifford OT - 10/06/2022 11:33 AM CST 10/06/22 1023 Visit Type Visit Type Treatment OT Visit Info Initial OT Visit On 10/04/22 Referral Reason Ot evaluation and treatment Medical Dx per Physician Acute on chronic HF, Acute CVA Comorbidities pertaining to therapy diagnosis Past Medical History: Diagnosis Date Aortic stenosis Congestive heart failure (CHF) (HCC) Diabetes mellitus (HCC) Hyperlipidemia Hypertension Neuropathy Patient/Family Reports consultation with Rn prior to arrival. On entering room patient flushed and daughter reports concern re: thermostat at 77 on her arrival . Pt reporting she is hot. Thermostat reading 75 and further adjusted to 70 an d notified nursing and [employer] [employer] that patient would like thermostat to remain at 70-71 . Pt agreeable to therapy and states, "I want to get to the commode" OT Received On 10/06/22 Total Treatment Time (min) Start Time 0934 Stop Time 1004 Total Treatment time (min) 30 min Timed Minutes ADL 30 Precautions Weight Bearing Status Weight Bearing As Tolerated LLE;Weight Bearing As Tolerate d RLE;Weight Bearing As Tolerated LUE;Weight Bearing As Tolerated RUE Back Precautions No Fall Risk Yes Isolation None Supplemental Oxygen RA Other Pure[place] Home Living Type of Home Apartment Home Layout One level Lives With Alone Bathroom Shower/Tub Walk-in shower Bathroom Equipment Grab bars in shower;Grab bars around toilet Prior Function Level of [place] Independent with ADLs;Independent with functional transfer s;Independent with ambulation;Independent with homemaking Receives Help From Family Vocational Retired Hobbies Watch TV Comments Prior to TAVR on 09/22, patient was Independent without a device for hous ehold and community mobility, ADLs, and IADLs. Daughters live in [place] and are supportive, one is an RN and still works. Still drives, denies recent falls. Pain Assessment Pain Score 0 ADL Lower Body Dressing (education in one handed technique for socks this date. completed with Mod A) Toileting Maximal Assistance;2 person assist (1st person for stance, 2nd for completion of tasks) Toileting Type of Assistance Setup of equipment;Pants up assist;Pants down julian t;Perineal hygiene;Safety concerns Pants Down Assistance Maximal Assistance Pants Up Assistance Maximal Assistance Toileting Hygiene Assistance Maximal Assistance Toilet Transfer Maximal Assistance (max A transfer x 1 stand pivot to chair) Toilet Transfer Equipment Bedside commode Toilet Transfer Method Stand pivot Cognition Orientation Level Oriented to place;Oriented to person;Oriented to time;Oriented to situation Hand Function Dominant Hand/Side Right Gross Grasp Left;Impaired;Right;Functional Gross Release Left;Impaired;Right;Functional Coordination Impaired Bed Mobility Supine to Sit Mod assist to left Sit to Supine Mod assist to right Supine Scooting Dependent Transfers Sit to Stand Transfers Mod assist;Verbal cueing required Stand to Sit Transfers Mod assist;Verbal cueing required Toilet transfer Max assist to left;Mod assist to right Balance Activity Sitting Surface EOB;on toilet Sitting Activity static;wt shift Sitting Time 11-15 min Sitting Assistance min assist;w/UE support (CGA) UE Therapeutic Exercises and Therapeutic Activity Scapular (attempted scapular ROM this date. Trace elevation and retraction with signific ant effort.) Patient Education Patient Education OT POC, importance of UE movement Response to education verbalizes understanding Other Daughters present for education and eager to assist patient with improving function Assessment Learning Barriers Visual Deficit Response to Treatment Fair Barriers to Discharge Lives alone;Requires caregiver assist;Safety concerns;Yuliya ent apprehension Problem List/Impairments Decreased IADL participation;Decreased ADL participatio n;Decreased activity tolerance;Decreased functional use of upper extremities;Dec reased functional mobility;Decreased safety awareness;Decreased strength;Impaire d sensation;Impaired coordination;Impaired balance;Physical limitation;Decreased A/PROM Timeframe Timeframe STG 3 visits Timeframe LTG 6 visits GOALS Goals Toilet Transfers;Strength;Stand Balance Toilet Transfer Goals Toilet Transfer STG Goal Status Goal continues Toilet Transfer STG Minimal Assistance Toilet Transfer LTG Goal Status Goal continues Toilet Transfer LTG Setup/Supervision Stand Balance Goals Stand Balance STG Goal Status Goal continues Stand Balance STG 2/5 supports self independently with both UEs Stand Balance LTG Goal Status Goal continues Stand Balance LTG 4/5 moves/returns trunk midpoint 1-2 inches in multiple planes Strength Goals Strength STG Goal Status Goal continues Strength STG Left;Increase 1/2 muscle grade;In prep for ADLs;In prep for functio nal tasks Strength LTG Goal Status Goal continues Strength LTG Left;Increase 1 muscle grade;In prep for ADLs;In prep for functiona l tasks *PLAN Patient/Caregiver Goal to get better Pt/Family involved in Plan of Care yes OT Treatment Interventions ADL retraining;Functional transfer training;UE streng thening/ROM;Functional activity tolerance;Patient/family training;Equipment eval uation/education;Compensatory technique education OT Frequency 3-5x/wk Discharge Recommendations Based on Today's Functional Status OT Plan Continued OT during acute admission OT Plan need for Post Acute Care Continue high intensity progression of OT in po st-acute care Equipment Recommend Purpose to reduce fall risk;to improve balance;to promote fu nctional mobility;to improve ADLs;to promote healing;to promote proper gait sequ ence;improve activity tolerance Care Coordination Care Coordination care coordination x 1 with RN and care progression. Fall Prevention Interventions Fall Prevention Interventions in place before leaving patient: Proper footwear;C all light in reach;Personal items/tray table in reach;In bed with bed alarm acti vated;Notified nursing AM-PAC Daily Activity Putting on and taking off lower body clothing 2 Bathing (including washing, rinsing, drying) 2 Toileting, which includes using toilet, bedpan, or urinal 2 Putting on and taking off upper body clothing 2 Taking care of personal grooming such as brushing teeth 3 Eating meals 3 Daily Activity - Raw Score 14 Scores from AM-PAC flowsheet Daily Activity - T-Scale Score 35.55 Daily Activity Percent Disability 53.86 % ACCOUNT DIRECTOR * End of Shift Note - Lázaro Ritchie RN - 10/05/2022 7:34 PM CST Pt is aox4, pleasant, c/o SOA this am with exertion but better this evening afte r lasix given. ST up to 140's with activty this am but down to low 100's this ev ening after metoprolol given. Sats in upper 90's. Up with x2 assist to BSC, gait belt and walker. No c/o pain. Safety precautions in place. Bath completed this morning. Family at bedside mos t of the afternoon. Supportive. Goals per Patient Condition Fall Prevention Plan - Patient will remain free from injury related to falls. Se e the Daily cares/safety flowsheet for intervention documentation. Skin Integrity Plan - Patient skin integrity maintained. See integumentary flows heet for intervention documentation. Goals/Plan for Shift Patient/Family stated goal for shift: Feel better Nursing goal for shift: stable VS/tele, neuro status unchanged, pt safety, educa te pt about plan of care Plan: vitals per order, assess tele, neuro checks, bed low/locked and call light within reach, cluster care, position to reduce symptoms Goals/Plan for Hospital Stay Patient/Family stated goal for hospital stay: to be able to breath better, figur e out this stroke Nursing goal for hospital stay: maintain stabke VS, improve neuro status Plan: give meds as ordered ACCOUNT DIRECTOR * Assessment & Plan Note - Jer Odonnell MD - 10/05/2022 5:20 PM CSTAssociated Problem(s): Constipation -Improved. -Continue bowel regimen. ACCOUNT DIRECTOR * Assessment & Plan Note - Jer Odonnell MD - 10/05/2022 4:19 PM CSTAssociated Problem(s): Type 2 diabetes mellitus without complication, without long-term current use of insulin (HCC) -Hemoglobin A1c 5.9. -Continue Jardiance. -Okay to go without Accu-Cheks and sliding scale at this time. ACCOUNT DIRECTOR * Assessment & Plan Note - Jer Odonnell MD - 10/05/2022 4:14 PM CSTAssociated Problem(s): Acute ischemic stroke (HCC) -Cardioembolic CVA with residual vertigo, left-sided weakness, and visual field deficit. -Evaluated by neurology; appreciate their help. -Imaging showed multifocal acute infarcts involving the bilateral frontoparietal and supra lobes in the bilateral cerebellar hemispheres. Patient additionally had trace type I petechial hemorrhage. -Repeat CT head on 10/08 showed redemonstration of hypodensities with increased s urrounding vasogenic edema consistent with evolving infarcts but no acute hemorr harshil or significant mass effect/midline shift. -Per cardiology, okay to continue with DOAC alone and stop antiplatelets. -After discussing with neurology patient started on oral apixaban for anticoagul ation on 10/08. -Continue PT/OT. -Social for discharge planning. Tentative plans for discharge to acute rehab [facility] tomorrow. ACCOUNT DIRECTOR * Assessment & Plan Note - Jer Odonnell MD - 10/05/2022 4:12 PM CSTAssociated Problem(s): Acute on chronic combined systolic and diastolic congestive heart failure (HCC) -Echocardiogram noted EF 23% (up from 10%). -Cardiology following; appreciate their help. -Transitioned to oral furosemide 20 mg daily. -Continue metoprolol, Jardiance, and spironolactone. Losartan 12.5 mg daily yes terday as well but discontinued today due to low blood pressures and PENG. -Needs to follow-up with recovery auditor in [place], [place] and will need to discuss con sideration of ICD therapy if EF remains low. -Daily weights monitor I's and O's. -Telemetry monitoring. ACCOUNT DIRECTOR * Assessment & Plan Note - Jer Odonnell MD - 10/05/2022 4:08 PM CSTAssociated Problem(s): Pneumonia of both lungs due to infectious organism (Resolved 10/09/2022) -Questionable diagnosis of pneumonia on transfer from outside hospital. Patient did have leukocytosis with WBC of 18. -Completed course of cefepime on 10/05. ACCOUNT DIRECTOR * Therapy Note - Lyn Clifford, OT - 10/05/2022 3:52 PM CST 10/05/22 1517 Visit Type Visit Type Treatment OT Visit Info Initial OT Visit On 10/04/22 Assessed for Rehab Yes Past medical history reviewed through chart review: Yes Medical Dx per Physician Acute on chronic HF, Acute CVA Comorbidities pertaining to therapy diagnosis Past Medical History: Diagnosis Date Aortic stenosis Congestive heart failure (CHF) (HCC) Diabetes mellitus (HCC) Hyperlipidemia Hypertension Neuropathy Patient/Family Reports Pt semi supine on arrival, reports feeling very fatigued, but pleasant and agreeable to treatment. Multiple family members present throug hout session. 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 Daughters live in [place] and are supportive, one is an RN and still works. Still drives, denies recent falls. Therapy Vital Signs Comments Vital Signs Comments Denies dizziness with activity, however does report feeling hot Perception Inattention/Neglect Cues to attend to left side of body;Cues to maintain midline in sitting;Cues to attend left visual field Initiation Appears intact Motor Planning Requires increased time;Cues for sequencing Perseveration Not present Vision - Complex Assessment Vision Intact No Vision comments Pt c/o of "spot" in L central visual field, however still able t o read name tag. Bed Mobility Supine to Sit Mod assist to left;Verbal cueing required;Bed Rail;HOB elevated Sit to Supine Mod assist to right;Verbal cueing required Bed Mobility Comments Pt completed x3 lateral leans bilaterally to incorporate w eight bearing through L UE. Right lean Min A, Left lean Mod A Balance Activity Sitting Surface EOB Sitting Activity static;wt shift Sitting Time 11-15 min Sitting Assistance min assist;w/UE support Sitting Activity Comments Pt sits EOB with significant R lateral lean, Min A to correct initially. Improves to SBA w/ VC, TC and using phone camera as mirror. Posture Posture comments Pt reports no history of back injuries or implications but has some misalignment while sitting EOB Activity Tolerance Activity Tolerance poor Activity Tolerance Comments limited by weakness and fatigue Patient Education Patient Education OT POC, importance of UE movement Response to education verbalizes understanding Assessment Learning Barriers Visual Deficit Response to Treatment Fair Assistance Needed Continual verbal cues (51-75%);Frequent tactile cues (26-50%) Barriers to Discharge Lives alone;Requires caregiver assist;Safety concerns;Yuliya ent apprehension Problem List/Impairments Decreased IADL participation;Decreased ADL participatio n;Decreased activity tolerance;Decreased functional use of upper extremities;Dec reased functional mobility;Decreased safety awareness;Decreased strength;Impaire d sensation;Impaired coordination;Impaired balance;Physical limitation;Decreased A/PROM Timeframe Timeframe STG 3 visits Timeframe LTG 6 visits GOALS Goals Toilet Transfers;Strength;Stand Balance Toilet Transfer Goals Toilet Transfer STG Goal Status Goal continues Toilet Transfer STG Minimal Assistance Toilet Transfer LTG Goal Status Goal continues Toilet Transfer LTG Setup/Supervision Stand Balance Goals Stand Balance STG Goal Status Goal continues Stand Balance STG 2/5 supports self independently with both UEs Stand Balance LTG Goal Status Goal continues Stand Balance LTG 4/5 moves/returns trunk midpoint 1-2 inches in multiple planes Strength Goals Strength STG Goal Status Goal continues Strength STG Left;Increase 1/2 muscle grade;In prep for ADLs;In prep for functio nal tasks Strength LTG Goal Status Goal continues Strength LTG Left;Increase 1 muscle grade;In prep for ADLs;In prep for functiona l tasks *PLAN Pt/Family involved in Plan of Care yes OT Treatment Interventions ADL retraining;Functional transfer training;UE streng thening/ROM;Functional activity tolerance;Patient/family training;Equipment eval uation/education;Compensatory technique education OT Frequency 3-5x/wk Discharge Recommendations Based on Today's Functional Status OT Plan Continued OT during acute admission OT Plan need for Post Acute Care Continue high intensity progression of OT in po st-acute care Fall Prevention Interventions Fall Prevention Interventions in place before leaving patient: Proper footwear;C all light in reach;Personal items/tray table in reach;Family present AM-PAC Daily Activity Putting on and taking off lower body clothing 2 Bathing (including washing, rinsing, drying) 2 Toileting, which includes using toilet, bedpan, or urinal 2 Putting on and taking off upper body clothing 2 Taking care of personal grooming such as brushing teeth 3 Eating meals 3 Daily Activity - Raw Score 14 Scores from AM-PAC flowsheet Daily Activity - T-Scale Score 35.55 Daily Activity Percent Disability 53.86 % ACCOUNT DIRECTOR * Therapy Note - Chio Canchola, PT - 10/05/2022 9:48 AM CST 10/05/22 0948 Visit Type Visit Type Treatment PT Visit Info Patient/Family Reports Patient in bed on arrival, reports she feels as if she ying s allergies this morning, RN notified. Reports difficulty feeling as if she is g etting enough air in, spO2 97% on RA with HR 112 BPM at rest, consistent wtih pr evious dates. Agreeable to work with PT. PT Received On 10/05/22 Time Calculation Start Time 0948 Stop Time 1031 Total Treatment time (min) 43 min Actual time (if diff than calculation) 23 min NMR, 20 min Ther Act, x1 CC with R N Precautions Fall Risk Yes Isolation None Supplemental Oxygen RA Other Recent TAVR 09/22 at [facility] Pain Assessment Pain Score 0 Vital Signs SpO2 97 % O2 Device None (Room air) Pulse (!) 112 Therapy Vital Signs Comments Vital Signs Comments Denies dizziness with mobility this date Cognition Overall Cognitive Status WFL Arousal/Alertness Appropriate responses to stimuli Attention Span Appears intact Memory Appears intact Orientation Level Oriented to person;Oriented to time;Oriented to situation Following Commands Follows one step commands without difficulty Safety Judgment Decreased awareness of need for assistance;Decreased awareness o f need for safety Insight Decreased awareness of deficits Problem Solving Assistance required to identify errors made Perception Inattention/Neglect Cues to attend to left side of body;Cues to maintain midline in sitting Initiation Appears intact Motor Planning Cues for sequencing;Requires increased time Perseveration Not present Vision-Basic Assessment Vision Comments Reports L sided visual deficit, requires cues to attend to L roula e Bed Mobility Supine to Sit Mod assist to right Bed Mobility Comments Patient continues to improve ability to participate in bed mobility and use of LLE for sequencing. Mod A for LUE and partial assist for tr unk to sit EOB. Patient scoots to EOB with TC to LUE and Min A, several scoots. Transfers Assistive Device Rolling walker Sit to Stand Transfers Mod assist;Verbal cueing required;Assistive Device;Safety concerns Stand to Sit Transfers Mod assist;Verbal cueing required;Assistive Device;Safety concerns Bed to Chair Mod assist to left;Verbal cueing required;Assistive Device;Safety c oncerns Transfer Comments Mod A STS with RW, assisting LUE with WBing, sequencing, and g rip. Mod A to stand pivot with RW, assisting LUE gatekeeper and LLE clearance, blockin g L knee posteriorly due to recurvatum Gait Gait Distance (Feet) 2 Assistive Device Rolling walker Gait Level Surface Assistance Maximal;Verbal cueing required Pattern L Foot drag;L Decreased stance time;L Genu recurvatum;Ataxic;R Decreased weight shift;L Decreased toe off;Increased lateral deviation;Decreased base of support;R Decreased step length;L Decreased step length;Decreased yvette Gait Comments Ambulates 2ft bed>recliner with RW and Max A for LUE gatekeeper, sequencing, WBing, LLE clearance, sequencing, and placement. Gait Activity Gait Surface level surface Gait Activity room mobility Gait Time 0-5 min Gait Assistance max assist;w/UE support Balance Sitting Static 2 Sitting Dynamic 2 Standing Static 1;(+) Standing Dynamic 1 Balance Activity Standing Surface level surface Standing Activity static;wt shift Standing Time 0-5 min Standing Assistance mod assist;w/UE support Standing Activity Comments Upright tolerance, pre-gait, and standing balance wit h RW. VC and TC to find midline in standing, alternating mini marches with minim al LLE clearance and LLE recurvatum in stance, PT blocking for safety. BLE ataxi c LLE>RLE. PT assists LUE to gatekeeper and WB through RW throughout standing trial. Balance Activity Comments Mod A for balance due to LLE weakness and ataxia. Neuromuscular Education Neuromuscular Re-education Weight bearing;Postural re-education;Verbal cues;Tact ile cues;Core strengthening Neuromuscular re-education comments Seated marches and LAQ bilaterally, alternat ing, to target to improve ataxia, 2x10 each. PT assists LUE gatekeeper on recliner and WBing LUE, seated "situps" pulling away from back 1x15 with VC, visual cues, an d TC to maintain midline. Due to noted RUE dysmetria with use of phone, PT holds phone as pt follows cues to navigate calling daughter. Requires Mod A due to dy smetria. SLR in supine prior to mobility 1x15 each to target. Sensory and bilate ral integration with use of lotion and towel, RUE applying lotion to LUE and wip ing excess with towel. PT assists LUE throughout. Pt left with towel to gatekeeper and release with LUE for continued NMR after departure. Activity Tolerance Activity Tolerance fair Activity Tolerance Comments limited by weakness and fatigue Patient Education Patient Education PT POC, continuing exercises BLE and BUE for neuroplasticity, educated daughters on how to assist pt with exercises prior to departure via reshma ne, DC planning Response to education verbalizes understanding *ASSESSMENT Learning Barriers Physical barriers Response to Treatment Fair;Tolerated well Response to Treat Comments No adverse events Assistance Needed Continual verbal cues (51-75%);Frequent tactile cues (26-50%) Problem List Activity limitations;Activity tolerance;Balance;Bed mobility;Body f unctions;Caregiver education;Decreased gait speed;Gait;Participation restriction s;Precaution education;Safety;Stairs;Strength;Transfers;W/C mobility;Propriocept ion Barriers to Discharge Lives alone;Requires caregiver assist;Safety concerns;Yuliya ent apprehension *PLAN Pt/Family Goal to walk;to go home;back to normal Pt/Family involved in Plan of Care Yes PT Treatment Interventions Functional transfer training;LE strengthening/ROM;End urance training;Patient/family training;Equipment eval/education;Bed mobility;Ga it training;Balance activities;Dual tasking activities;Safety training;Progressi ve Mobility;Neuromuscular re-ed;Curb/stair training;Compensatory education;Coord ination activities;w/c mobility PT Frequency Daily PT Plan for next treatment progress transfers, sitting balance, and trial RW PT Nursing Communication Mod A stand pivot to R side, blocking L knee Discharge Recommendations Based on Today's Functional Status PT Plan Continued PT during acute admission;Rehab Medicine Consult;Unsafe to DC home PT Plan need for Post Acute Care Continue high intensity progression of PT in po st-acute care Equipment Recommended Other (Comment);Least restrictive device (continue to assess) Equipment Recommend Purpose to reduce fall risk;to improve balance;to promote fu nctional mobility;to improve ADLs;to promote healing;to promote proper gait sequ ence;improve activity tolerance Equipment Recommended Comment continue to assess Plan comments Patient presents with acute CVA and significantly varied function from PLOF. Patient was previously Independent with mobility and cares in the [facility] community. She currently requires Mod-Max A for bed mobility and transfers and demonstrates significant impairments in L side strength, coordination, prop rioception and further impairments in balance, transfer safety, activity toleran ce, safe gait and stair progression, and overall functional mobility. Patient wi ll benefit from continued acute and post-acute PT intervention at high intensity in order to return to PLOF and optimize mobility. She is motivated to work with therapy and return home, as well as having supportive family system. Care Coordination Care Coordination x1 with RN Fall Prevention Interventions Fall Prevention Interventions in place before leaving patient: Proper footwear;C all light in reach;Personal items/tray table in reach;Notified nursing;Sitting i n recliner chair with legs elevated AM-PAC Basic Mobility Turning over in bed without bedrails 2 Sitting down on and standing up from a chair with arms 2 Moving from lying on back to sitting on the side of the bed 2 Moving to and from a bed to a chair 2 Need assistance to walk in hospital room 1 Climbing 3-5 steps with a railing 1 Basic Mobility - Raw Score 10 Scores from AM-PAC flowsheet Basic Mobility - T-Scale Score 28.13 Basic Mobility Percent Disability 71.92 % ACCOUNT DIRECTOR * End of Shift Note - Macie Zambrano RN - 10/05/2022 5:34 AM KEY ACCOUNT DIRECTOR End of Shift Summary and Plan of Care SR/ST with BBB and VSS. Neuro checks unchanged. No complaints of pain. Pt has pu rewick in place and resting comfortable at this time Goals per Patient Condition Fall Prevention Plan - Patient will remain free from injury related to falls. Se e the Daily cares/safety flowsheet for intervention documentation. Skin Integrity Plan - Patient skin integrity maintained. See integumentary flows heet for intervention documentation. Goals/Plan for Shift Patient/Family stated goal for shift: sleep Nursing goal for shift: stable VS/tele, neuro status unchanged, pt safety Plan: vitals per order, assess tele, neuro checks, bed low/locked and call light within reach, cluster care, position to reduce symptoms Goals/Plan for Hospital Stay Patient/Family stated goal for hospital stay: to be able to breath better, figur e out this stroke Nursing goal for hospital stay: maintain stabke VS, improve neuro status Plan: give meds as ordered ACCOUNT DIRECTOR * End of Shift Note - Nani Carey RN - 10/04/2022 6:09 PM CST End of Shift Summary and Plan of Care Tx to room 634 via cart. Daughters at bedside. Pt A&O x4. No acute neuro changes. NST-ST with BBB on tele. RA Denies pain 2 RN skin assessment complete. Pure wick in place Goals per Patient Condition Fall Prevention Plan - Patient will remain free from injury related to falls. Se e the Daily cares/safety flowsheet for intervention documentation. Skin Integrity Plan - Patient skin integrity maintained. See integumentary flows heet for intervention documentation. Goals/Plan for Shift Patient/Family stated goal for shift: Stop the nausea Nursing goal for shift: Prevent skin breakdown Plan: Continue to offload and Q2H turns Goals/Plan for Hospital Stay Patient/Family stated goal for hospital stay: to be able to breath better, figur e out this stroke Nursing goal for hospital stay: maintain stabke VS, improve neuro status Plan: give meds as ordered ACCOUNT DIRECTOR * Therapy Note - Ronny Leary, OT - 10/04/2022 3:27 PM CST 10/04/22 1500 Visit Type Visit Type Evaluation OT Visit Info Initial OT Visit On 10/04/22 Assessed for Rehab Yes Past medical history reviewed through chart review: Yes OT Received On 10/04/22 OT Visit # 1 Precautions Fall Risk Yes Supplemental Oxygen RA Other Recent TAVR 09/22 at [facility] Living Type of Home Apartment Home Layout One level Lives With Alone (with DOG) Bathroom Shower/Tub Walk-in shower Home Assistive Device Straight cane Prior Function Level of [place] Independent with ADLs;Independent with functional transfer s;Independent with ambulation;Independent with homemaking Receives Help From Family ADL Grooming Supervision/Setup Grooming Type of Task Washing, Rinsing and/or Drying the face (supine in bed) Cognition Safety Judgment Decreased awareness of need for assistance;Decreased awareness o f need for safety Insight Decreased awareness of deficits Perception Inattention/Neglect Cues to attend to left side of body;Cues to maintain midline in sitting Initiation Appears intact Motor Planning Cues for sequencing;Requires increased time Vision - Complex Assessment Vision Intact No Vision comments P c/o of "spot" in R central visual field obstructing P's abilit y to see OT's name tag. Sensation Light Touch Impaired Light Touch Area LUE Proprioception Proprioception Impaired Proprioception Area LUE;LLE RUE Assessment RUE Assessment WFL LUE Assessment LUE Comments Distal LUE grossly 3+/5; Proximal LUE: grossly 2+/5 Hand Function Gross Grasp Functional Gross Release Functional Bed Mobility Supine to Sit Mod assist to right Sit to Supine Mod assist to left Transfers Sit to Stand Transfers Mod assist Stand to Sit Transfers Mod assist Gait Activity Gait Surface level surface Gait Activity sidestep Gait Time 0-5 min Gait Assistance mod assist Activity Tolerance Activity Tolerance fair Patient Education Patient Education OT POC Response to education verbalizes understanding Assessment Learning Barriers None Assistance Needed Continual verbal cues (51-75%);Frequent tactile cues (26-50%) Problem List/Impairments Decreased IADL participation;Decreased ADL participatio n;Decreased activity tolerance;Decreased functional use of upper extremities;Dec reased functional mobility;Decreased safety awareness;Decreased strength;Impaire d sensation;Impaired coordination;Impaired balance;Physical limitation Timeframe Timeframe STG 3 visits Timeframe LTG 6 visits GOALS Goals Toilet Transfers;Strength;Stand Balance Toilet Transfer Goals Toilet Transfer STG Goal Status New goal Toilet Transfer STG Minimal Assistance Toilet Transfer LTG Goal Status New goal Toilet Transfer LTG Setup/Supervision Stand Balance Goals Stand Balance STG Goal Status New goal Stand Balance STG 2/5 supports self independently with both UEs Stand Balance LTG Goal Status New goal Stand Balance LTG 4/5 moves/returns trunk midpoint 1-2 inches in multiple planes Strength Goals Strength STG Goal Status New goal Strength STG Left;Increase 1/2 muscle grade;In prep for ADLs;In prep for functio nal tasks Strength LTG Goal Status New goal Strength LTG Left;Increase 1 muscle grade;In prep for ADLs;In prep for functiona l tasks *PLAN Pt/Family involved in Plan of Care yes OT Treatment Interventions ADL retraining;Functional transfer training;UE streng thening/ROM;Functional activity tolerance;Patient/family training;Equipment eval uation/education;Compensatory technique education OT Frequency 3-5x/wk Discharge Recommendations Based on Today's Functional Status OT Plan Continued OT during acute admission OT Plan need for Post Acute Care Continue high intensity progression of OT in po st-acute care ACCOUNT DIRECTOR * Therapy Note - Magdalena Ellison CCC-VP PURCHASING - 10/04/2022 3:17 PM CST 10/04/22 2596 Visit Type Visit Type Video Swallow VP PURCHASING Visit Info Referral Reason Videoswallow evaluation completed, per rehab physician request. VP PURCHASING Received On 10/04/22 Required Screenings Primary Language South Korean Swallow Subjective Subjective Patient sitting in chair;Alert;Cooperative Baseline Assessment Respiratory Status Room air;Unremarkable Behavior/Cognition Alert;Cooperative;Pleasant mood Patient Positioning Upright in chair Baseline Vocal Quality Normal Diet: current Regular consistency;No liquid consistency restrictions Thin Presentation - Thin Cup;Straw;Self Fed Oral - Thin WFL Pharyngeal - Thin Reduced pharyngeal peristalsis;Reduced laryngeal elevation;Red uced airway/laryngeal closure;Pharyngeal residue - valleculae;Pharyngeal residue - pyriform Residue - Thin Other (comment) (minimal vallecular and pyriform sinus residuals) Cricopharyngeal - Thin WFL Penetration Minimal;During Swallow Aspiration - Thin None Penetration/aspiration Contrast;Enters airway;Above vocal fold;Residue remains Cough - Thin No cough reflex Pudding Presentation - Pudding Spoon;VP PURCHASING Fed Oral - Pudding WFL Pharyngeal - Pudding WFL Cricopharyngeal - Pudding WFL Penetration None Aspiration - Pudding None Solid Presentation - Solid Spoon;VP PURCHASING Fed Oral - Solid WFL Pharyngeal - Solid WFL Cricopharyngeal - Solid WFL Penetration None Aspiration - Solid None Assessment Diagnosis Mild;Pharyngeal dysphagia Risk for Aspiration Minimal Recommendations Evaluate sp/language/cognition Further evaluation not recommended at this time Recommendations Other (Comment) (Con't PO diet) Diet Solids Recommendations Regular consistency Diet Liquids Recommendations No liquid consistency restrictions Compensatory Swallowing Strategies Upright as possible for all oral intake;Small bites/sips;Eat/feed slowly Recommended Form of Medications Take pills one at a time;With liquid Pt passed VP PURCHASING swallow evaluation Yes Considerations Discharge Plan - DC After initial visit Plan Patient & family participated in development of Progression of Care Patient participated in development of treatment plan Treatment Interventions No further VP PURCHASING services indicated at this time Treatment Frequency Initial evaluation only VP PURCHASING Nursing Communication RN notified of results and recommendations. Education Education Provided Results and recommendations Audience Patient Mode Verbal explanation Response Verbalized understanding Care Coordination Care Coordination x1; communication w/ RN and radiology re: scheduling and coord inating videoswallow evaluation. VP PURCHASING Timed Treatment Timed Minutes 19 Total Treatment Minutes 19 Videoswallow evaluation (MBSS) completed this date in radiology. Pt demonstrated minimal penetration of large, thin liquid bolus. Contrast remained above the le remedios of the vocal folds, but was not completely ejected from the laryngeal vestib ule. No aspiration of thin liquids, pudding, or cracker bolus trials noted. RECOMMENDATIONS: Pt okay for regular solids and thin liquids. No further acute S T indicated at this time. VP PURCHASING will sign off. Please reconsult ST should future n eeds arise. Thank you. ACCOUNT DIRECTOR * Discharge Planning - Juliet Conn LMSW - 10/04/2022 2:26 PM CST Discharge Planning Interventions General Discharge Note Anticipated discharge disposition: Acute Rehab Facility/Unit Care Progression Plan: ARU Additional discharge planning information: SW spoke with pt and daughter at beds [facility] regarding discharge plan. Pt appropriate for ARU. Pt and family would like t o look closer to home. ARU list provided from Medicare.gov, reviewed list togeth er: 1st choice [facility], 2nd: [facility] in [place]. SW left for multi share program coordinator with [facility], awaiting return call for fax number. Not in [facility] for referral. [facility] sent through [employer]. Previous SNF referral sent over weekend prior to PMR consult. Pt understands we are looking at different level of care for rehab. SW to continue to follow. Addendum 158: Referral faxed successfully to [facility] (P: / F: [phone]). Referrals: Pending - Request Sent Referral(s): Destination [place] [address] [address] Resource for: Depression, Financial Resource Strain, [facility] Physical Activity [address] [address] Anticipated needs/services for patients discharge: Living Arrangement (pulls from initial assessment) Support System (pulls from initial assessment) Is the prior level of care appropriate and safe? Short term discharge goals (moving to initial assessment) exterminator helper termite discharge goals (moving to initial assessment) Current Services: Home Care Services (flowsheet in initial assessment) Type of Home Care Services (flowsheet in initial assessment that cascades from H ome Care Services, so will show blank if answer was no) Patient's preferred [facility] post-discharge list provided and discussed quality ratin gs: Home Health, Shelter Facility, LTAC Physical Therapy Location: Facility Occupational Therapy Location:Facility Speech Therapy Location:Facility Infusion Therapy Location: N/A Hospice Location: N/A Home Health: N/A Community Resources: N/A Anticipated dDurable Medical Equipment needs for discharge: DME Needed: None Current DME Recommendations per Therapy: PT: Other (Comment), Least restrictive device (TBD pending pt progress)DME Provi kei name (freetext flowsheet) Discharge Planning Participants: Patient, Children Pt/Family Agreement w/ discharge plan: Yes Patient's preferred [facility] post-discharge list provided and discussed quality ratin gs: Acute Rehab Juliet Conn LMSW 10/04/2022 2:36 PM ACCOUNT DIRECTOR * Therapy Note - Chio Canchola, PT - 10/04/2022 10:13 AM CST 10/04/22 1013 Visit Type Visit Type Treatment PT Visit Info Patient/Family Reports Patient agreeable to work with PT, had some dizziness and nausea with bed mobility this AM, reports room was spinning with rolling but un able to identify which direction. PT Received On 10/04/22 Time Calculation Start Time 1013 Stop Time 1051 Total Treatment time (min) 38 min Actual time (if diff than calculation) 23 min Ther Act, 15 min NMR, x1 CC with O T and RN Precautions Fall Risk Yes Isolation None Other Recent T[facility]R 09/22 at [facility] Pain Assessment Pain Score 0 Therapy Vital Signs Comments Vital Signs Comments Denies dizziness and nausea with all PT activities. HR up t o 122 BPM with mobility. Cognition Overall Cognitive Status WFL Arousal/Alertness Appropriate responses to stimuli Attention Span Appears intact Memory Appears intact Orientation Level Oriented to person;Oriented to place;Oriented to time;Oriented to situation Following Commands Follows one step commands without difficulty Safety Judgment Decreased awareness of need for assistance;Decreased awareness o f need for safety Insight Decreased awareness of deficits Problem Solving Assistance required to identify errors made Perception Inattention/Neglect Cues to attend to left side of body;Cues to maintain midline in sitting;Cues to maintain midline in standing (improving from previous date) Initiation Appears intact Motor Planning Cues for sequencing;Requires increased time Perseveration Not present Vision-Basic Assessment Vision Comments Reports L sided visual deficit, requires cues to attend to L roula e Vestibular Testing Vestibular Testing Other 1 Other 1 Positional testing not indicated at this time, however if pt continues t o report spinning sensation with mobility, may benefit from further vestibular w orkup. Bed Mobility Supine to Sit Mod assist to left;Verbal cueing required;Bed Rail Bed Mobility Comments VC for sequencing, reaching for bed rail with RUE. Improve d assistance with scooting to EOB, continues to require Mod A, demonstrates impr clive anterior trunk lean and use of BLE against bed rail with cues. Min A and im proving to CGA for sitting balance EOB, see below for details. Transfers Assistive Device None Sit to Stand Transfers Mod assist;Verbal cueing required;Safety concerns Stand to Sit Transfers Mod assist;Verbal cueing required;Safety concerns Bed to Chair Mod assist to right;Verbal cueing required;Assistive Device;Safety concerns Transfer Comments Mod A STS blocking L knee and VC/TC for LUE placement on PT fo r transfer training. Mod A stand pivot to R with continual cues for sequencing. No L knee buckling this date. Pt too fatigued from postural training for further transfer trials this date. Balance Sitting Static 2;(-) Sitting Dynamic 2;(-) Standing Static 1 Standing Dynamic 1 Balance Activity Sitting Surface EOB Sitting Activity static;wt shift Sitting Time 11-15 min Sitting Assistance min assist;w/UE support (CGA with cues) Sitting Activity Comments pt sits EOB x12 min total, initially with significant R lateral lean. Improves with cues to correct, VC and TC for LUE placement and g ripping EOB, remains CGA after cueing during PMR discussion. Neuromuscular Education Neuromuscular Re-education Crossing midline;Left LE;Tactile cues;Verbal cues Neuromuscular re-education comments BLE marches, LAQ with emphasis on LLE to "ta rget" with noted impaired coordination. Encouraged bilateral exercise for BLE an d BUE, RUE assisting LUE with ROM. Educated to utilize various sensory stimuli t o LUE and LLE (such as lotion) and educated pt and daughters on principles of ne uroplasticity, emphasizing benefits of repetitive bilateral movement and patient 's use of LUE and LLE as able with functional tasks Activity Tolerance Activity Tolerance fair;- Activity Tolerance Comments limited by weakness and fatigue Sensation Light Touch Impaired Light Touch Area LUE;LLE Additional Comments Reports numbness and tingling in LLE and LUE Proprioception Proprioception Impaired Proprioception Area LUE;LLE LUE Assessment LUE Comments Improving overall strength, remains weaker proximally LLE Assessment LLE Comments Strength improving, coordination impaired Strength LLE L Hip Flexion 3/5 L Hip ABduction 3/5 L Hip ADduction 3/5 L Knee Flexion 3/5 L Knee Extension 3/5 L Ankle Dorsiflexion 3/5 L Ankle Plantar Flexion 3+/5 Patient Education Patient Education PT POC, role of acute PT, DC recs for PACF, principles of neur oplasticity and benefits of repetition as well as use of LUE/LLE as able Response to education verbalizes understanding;needs further review Other Daughters present for education and eager to assist patient with improving function *ASSESSMENT Learning Barriers Physical barriers Response to Treatment Fair Response to Treat Comments No adverse events Assistance Needed Continual verbal cues (51-75%);Frequent tactile cues (26-50%) Problem List Activity limitations;Activity tolerance;Balance;Bed mobility;Body f unctions;Caregiver education;Decreased gait speed;Gait;Participation restriction s;Precaution education;Safety;Stairs;Strength;Transfers;W/C mobility;Propriocept ion Barriers to Discharge Lives alone;Requires caregiver assist;Safety concerns;Yuliya ent apprehension *PLAN Pt/Family Goal to walk;to go home;back to normal Pt/Family involved in Plan of Care Yes PT Treatment Interventions Functional transfer training;LE strengthening/ROM;End urance training;Patient/family training;Equipment eval/education;Bed mobility;Ga it training;Balance activities;Dual tasking activities;Safety training;Progressi ve Mobility;Neuromuscular re-ed;Curb/stair training;Compensatory education;Coord ination activities;w/c mobility PT Frequency Daily PT Plan for next treatment progress transfers, sitting balance, and trial RW PT Nursing Communication Mod A stand pivot to R side, blocking L knee Discharge Recommendations Based on Today's Functional Status PT Plan Continued PT during acute admission;Rehab Medicine Consult;Unsafe to DC home PT Plan need for Post Acute Care Continue high intensity progression of PT in po st-acute care Equipment Recommended Other (Comment);Least restrictive device (TBD pending pt progress) Equipment Recommend Purpose to reduce fall risk;to improve balance;to promote fu nctional mobility;to improve ADLs;to promote healing;to promote proper gait sequ ence;improve activity tolerance Equipment Recommended Comment continue to assess Plan comments Patient presents with acute CVA and significantly varied function from PLOF. Patient was previously Independent with mobility and cares in the [facility] and community. She currently requires Mod-Max A for bed mobility and transfers and demonstrates significant impairments in L side strength, coordination, prop rioception and further impairments in balance, transfer safety, activity toleran ce, safe gait and stair progression, and overall functional mobility. Patient wi ll benefit from continued acute and post-acute PT intervention at high intensity in order to return to PLOF and optimize mobility. She is motivated to work with therapy and return home, as well as having supportive family system. Care Coordination Care Coordination x1 with RN, OT Fall Prevention Interventions Fall Prevention Interventions in place before leaving patient: Proper footwear;C all light in reach;Personal items/tray table in reach;Notified nursing;Sitting i n recliner chair with legs elevated;Family present AM-PAC Basic Mobility Turning over in bed without bedrails 2 Sitting down on and standing up from a chair with arms 2 Moving from lying on back to sitting on the side of the bed 2 Moving to and from a bed to a chair 2 Need assistance to walk in hospital room 1 Climbing 3-5 steps with a railing 1 Basic Mobility - Raw Score 10 Scores from AM-PAC flowsheet Basic Mobility - T-Scale Score 28.13 Basic Mobility Percent Disability 71.92 % ACCOUNT DIRECTOR * End of Shift Note - Oscar Valdez RN - 10/04/2022 1:07 AM CST End of Shift Summary and Plan of Care Pt refusing to wear CPAP to bed. Jenkins d/c, purewick in place. Pt voided this am . Pt nauseas this am with bath turning, zofran given, pt symptoms improved. Pt w ith transfer orders. Attempted to get pt up to commode but unable to due to weak ness. Goals per Patient Condition Fall Prevention Plan - Patient will remain free from injury related to falls. Se e the Daily cares/safety flowsheet for intervention documentation. Skin Integrity Plan - Patient skin integrity maintained. See integumentary flows heet for intervention documentation. Goals/Plan for Shift Patient/Family stated goal for shift: To be able to go home Nursing goal for shift: Maintain stable hemodynamic status and prevent further c omplications Plan: Monitor VS and labs. Maintain bed alarm. Q2 turn. Give scheduled and PRN m eds as appropriate. Goals/Plan for Hospital Stay Patient/Family stated goal for hospital stay: to be able to breath better, figur e out this stroke Nursing goal for hospital stay: maintain stabke VS, improve neuro status Plan: give meds as ordered ACCOUNT DIRECTOR * Nutrition Note - Karli Solis - 10/03/2022 4:26 PM CST Nutrition Assessment [facility] DIAGNOSIS & INTERVENTION: DIAGNOSIS 1 Nutrition Diagnosis 1: NI 1.6 Predicted suboptimal energy intake Related To: Decreased appetite As Evidenced By: Pt report of decreased appetite, pt report of unintentional wt loss Goal: Prevent further unintentional weight loss, Patient to consume >75% of meals Time Frame: Throughout stay Goal Status: New goal established Nutrition Diagnosis Comment: Pt report of decreased appetite since before , pt report of unintentional wt loss (timeframe unknown), mild malnourishment per NFPE Intervention/Plan 1a: RD to order Ensure HP strawberry BID, recommend multivitam in Malnutrition criteria: Malnutrition Recommendation - Physician Alert Malnutrition Rec to Provider: No Recommendation (Mild malnourishment) REASON FOR CONSULT: + screen Patient: Donnell Diehl Age: 77 y.o. : 1945 PRIMARY CARE PROVIDER: Jennie Holland ATTENDING PHYSICIAN: Faizan Wu MD HISTORY OF PRESENT ILLNESS: Ms. Donnell Diehl is a very pleasant 77 yo female with history of severe aortic st enosis s/p recent TAVR (Sep 22, 2022 performed in [facility]), HFpEF, HTN, DM2 who presented to [facility] with hypoxic respiratory failure and SOB FOOD & NUTRITION RELATED HISTORY: Diet Order: Dietary Orders (From admission, onward) Start Ordered 10/01/22 1443 Diet-Low Fat/Chol, 2 gm Na (Heart Healthy) Diet effective now 10/01/22 1442 Food Intake Amount of Food: Pt reports decreased appetite since before , states jairo etite getting better; 90% of 3 meals Type of Food / Meals: Heart Healthy diet ANTHROPOMETRICS Height: 157.5 cm (5' 2") Weight: 57.9 kg (127 lb 10.3 oz) Weight Change: 5.85 BMI (Calculated): 22.8 Usual Body Weight: 61.7 kg (136 lb) % Weight Loss In Weeks: Pt states wt loss, but unknown timeframe; 2% wt loss in 6 days, but gaining wt since admit NUTRITION FOCUSED PHYSICAL FINDINGS: Overall Appearance: pt laying in bed Body Language: Pleasant Cardiovascular - Pulmonary: Room air Extremities, Muscles and Bones: Mild depression of thigh, some protrusion of acr omion process/clavicle, some depth pinch but not ample upper arm region Digestive System (Mouth to Rectum): Abd distended, rounded, hypoactive, + flatus , LBM PRINTED CIRCUIT BOARDS PLASMA ETCHER Head and Eyes: Slight temporal depression, orbitals WNL Nerves and Cognition: O&A x 4 Skin: No PIs noted MEDS AND LABS REVIEWED: Pertinent Labs: BMP: Lab Results Component Value Date NA 138 10/03/2022 K 4.0 10/03/2022 CO2 25 10/03/2022 GAP 10 10/03/2022 CALCIUM 9.2 10/03/2022 GLU 130 (H) 10/03/2022 BUN 35 (H) 10/03/2022 CREAT 1.51 (H) 10/03/2022 Pertinent Meds: No current facility-administered medications on file prior to encounter. Current Outpatient Medications on File Prior to Encounter Medication Sig Dispense Refill aspirin 81 MG chewable tablet Chew 1 tablet (81 mg total) daily. Docusate Sodium 100 MG capsule Take 1 capsule (100 mg total) by mouth 2 (two ) times a day. DULoxetine (CYMBALTA) 30 mg capsule Take 1 capsule (30 mg total) by mouth at bedtime. empagliflozin (JARDIANCE) 10 mg tablet Take by mouth daily. lisinopriL (PRINIVIL, ZESTRIL) 5 MG tablet Take 1 tablet (5 mg total) by beulah th daily. metoprolol succinate (TOPROL-XL) 50 MG 24 hr tablet Take 1 tablet (50 mg tot al) by mouth daily. pantoprazole (PROTONIX) 40 MG tablet Take 1 tablet (40 mg total) by mouth ev mellisa morning. pramipexole (MIRAPEX) 1 MG tablet Take 1 tablet (1 mg total) by mouth at bed time. pravastatin (PRAVACHOL) 40 MG tablet Take 1 tablet (40 mg total) by mouth at bedtime. spironolactone (ALDACTONE) 25 MG tablet Take 0.5 tablets (12.5 mg total) by mouth daily. trazodone (DESYREL) 50 MG tablet Take 1 tablet (50 mg total) by mouth nightl y. Intake/Output Summary (Last 24 hours) at 10/03/2022 1631 Last data filed at 10/03/2022 1521 Gross per 24 hour Intake 41.66 ml Output 1735 ml Net -1693.34 ml NUTRITION PRESCRIPTION: Estimated Energy Needs Total Energy Estimated Needs: 9147-2607 kcal/day Method for Estimating Needs: MSJ x 1.2-1.4 AF Estimated Protein Needs Total Protein Estimated Needs: 57.9-69.48 g/day Method for Estimating Needs: 1-1.2 g/kg Fluid Needs Method for Estimating Needs: 1ml/kcal MONITORING/EVALUATION: 1. Food & Nutrition Related Hx: Energy Intake 2. Anthropometrics: Weight change 3. Biochemical: Nutrition related labs 4. Nutrition-focused physical findings: GI function, skin Electronically signed by Karli Solis 10/03/2022 4:31 PM ACCOUNT DIRECTOR * Interval Summary - Andrés Ewing RN ANP - 10/03/2022 1:29 PM CST NEUROLOGY INTERVAL SUMMARY DATE: 10/03/2022 PATIENT NAME: Donnell Diehl : 1945 AGE: 77 y.o. Neurologic Diagnosis: Multifocal acute ischemic cardio embolic stroke bilateral frontoparietal, occipital and cerebellar lobes, clinically with left hemiparesis waxing and waning, left facial droop waxing / waning extinction, vertigo, gait instability. All in the setting of acute decompensated congestive heart failur e with reduced ejection fraction, recent TAVR 09/22/2022. Petechial hemorrhage in the right frontal parietal and left frontal lobe. She was not a candidate for TN K or intervention due to time and lack of large vessel occlusion. Echo: EF 23%, severely dilated left ventricular systolic function, akinesis of t he basal mid inferior and septal fink with hypokinesis of the remaining segment s. Normal right ventricular size and systolic function. TAVR with normal functio n. Calcific mitral annulus with mild stenosis and mild to moderate regurgitation . Neurologic Deficits: Left hemiparesis Left facial droop Vertigo Extinction Gait instability Secondary Diagnosis: Diabetes mellitus, well controlled Acute decompensated congestive heart failure Recent TAVR 09/22/2022 Hypertension Acute kidney injury Anemia Plan: For antithrombotic therapy, the patient was placed on aspirin before the end of day 1 in the hospital. Patient and / or family at the bedside verbalized un derstanding; mutually agreed upon goals. Anticoagulation is indicated but currently on hold due to petechial hemorrhag e. Likely this will be recommended after review of repeat CT head on 10/08/22. Dr. Madison aware. Low intensity statin started by cardiology. High intensity statin is not ne mmended due to etiology of stroke and low LDL level of 43.6. In addition, educat ion with the patient and/or family regarding goal LDL<70 for patients with any vascular risk factors. Stroke Education implemented and ongoing with the patient and/or family, incl uding but not limited to: risk factor reduction, antiplatelet medication, signs and symptoms of stroke to return to the hospital for. Addressed risk factor mod ification specific to this patient. Patient and / or family at the bedside verb alized understanding; mutually agreed upon goals. Nursing staff provided dottie abarca stroke education materials (the stroke book) and instructions. Venous thromboembolism prophylaxis, SCDs. The Physical Medicine Rehabilitation team has been consulted and is treating the patient as indicated. Including PT, OT and ST. Blood Pressure parameters: Avoid hypotension Follow up in the stroke clinic in 2 weeks. Andrés Ewing SOIL SAMPLER Data / Quality: Suspect cardio embolic stroke in the setting of reduced ejection fraction of 10%-23%, recent TAVR. ACCOUNT DIRECTOR * Therapy Note - Chio Canchola, PT - 10/03/2022 10:43 AM CST 10/03/22 1043 Visit Type Visit Type Evaluation PT Visit Info Initial PT Visit On 10/03/22 Assessed for Rehab Yes Past medical history reviewed through chart review: Yes Referral Reason Ischemic stroke Medical Dx per Physician Acute on chronic HF, Acute CVA Comorbidities pertaining to therapy diagnosis Past Medical History: Aortic stenosis Congestive heart failure (CHF) (HCC) Diabetes mellitus (HCC) Hyperlipidemia Hypertension Neuropathy Past Surgical History: CHOLECYSTECTOMY HYSTERECTOMY TAVR, FEMORAL APPROACH Patient/Family Reports Patient in bed with 2 daughters at bedside. Daughters exi t for PT treatment, are supportive and live near pt in [facility]. Patient is agr eeable to PT. Recent TAVR 09/22 at OSH. PT Received On 10/03/22 Time Calculation Start Time 1043 Stop Time 1128 Total Treatment time (min) 45 min Actual time (if diff than calculation) 15 min PT Eval, 30 min Ther Act, x1 CC Precautions Fall Risk Yes Isolation None Other Recent TAVR 09/22 at OSH Home Living Type of Home Apartment Home Layout One level Lives With Alone Bathroom Shower/Tub Walk-in shower Bathroom Equipment Grab bars in shower;Grab bars around toilet Bathroom Accessibility Accessible Home Assistive Device Straight cane Additional Comments: Reports she is supposed to be getting a RW from HH Prior Function Level of [place] Modified independent with ADLs;Modified independent with f unctional transfers;Modified independent with ambulation;Modified independent wi th homemaking Receives Help From Family 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 Daughters live in [place] and are supportive, one is an RN and still works. Still drives, denies recent falls. Vital Signs BP 118/73 Pulse (!) 110 Therapy Vital Signs Comments Vital Signs Comments Reports "wobbly head" feeling sitting EOB. BP WFL, RN notif ied. Cognition Overall Cognitive Status WFL Arousal/Alertness Appropriate responses to stimuli Attention Span Appears intact Memory Appears intact Orientation Level Oriented to person;Oriented to place;Oriented to situation;Keegan ented to time Following Commands Follows one step commands without difficulty Safety Judgment Decreased awareness of need for assistance;Decreased awareness o f need for safety Insight Decreased awareness of deficits Problem Solving Assistance required to identify errors made Comments mildly increased time to respond Perception Inattention/Neglect Cues to attend to left side of body;Cues to maintain midline in sitting;Cues to maintain midline in standing Initiation Appears intact Motor Planning Cues for sequencing;Requires increased time Perseveration Not present Bed Mobility Supine to Sit Mod assist to left;Verbal cueing required;Bed Rail Transfers Assistive Device None Sit to Stand Transfers Mod assist;Verbal cueing required;Safety concerns Stand to Sit Transfers Mod assist;Verbal cueing required;Safety concerns Bed to Chair Max assist to left;Verbal cueing required;Safety concerns Transfer Comments STS x2 Mod A for stand and sit, PT blocking L knee for safety. No buckling with 1st trial, mild buckling 2nd trial. Mod A stand pivot bed>BSC without device to L, achieves full upright stand for pivot. Max A stand pivot to L BSC>recliner without device, moderate L knee buckling. Balance Sitting Static 1;(+) Sitting Dynamic 1;(+) Standing Static 1 Standing Dynamic 1 Balance Activity Sitting Surface EOB;on toilet Sitting Activity static;wt shift Sitting Time 6-10 min Sitting Assistance min assist;w/UE support Sitting Activity Comments Sitting balance Min A due to L sided weakness. Improve s with proper hip alignment, and hand placement. Activity Tolerance Activity Tolerance fair;- Activity Tolerance Comments limited by weakness and fatigue Sensation Light Touch Intact (BLE) Proprioception Proprioception Impaired Proprioception Area LUE;LLE RUE Assessment RUE Assessment WFL LUE Assessment LUE Assessment X LUE Comments Proximal weakness>distal PROM - LUE LUE Overall PROM Within Functional Limits RLE Assessment RLE Assessment WFL LLE Assessment LLE Assessment X LLE Comments coordination impaired Strength LLE L Hip Flexion 2+/5 L Hip ABduction 2/5 L Hip ADduction 2/5 L Knee Flexion 2/5 L Knee Extension 2/5 L Ankle Dorsiflexion 2/5 L Ankle Plantar Flexion 2+/5 Patient Education Patient Education PT POC, role of acute PT, DC recs for PACF Response to education verbalizes understanding;needs further review *ASSESSMENT Learning Barriers Physical barriers Response to Treatment Fair Response to Treat Comments No adverse events Assistance Needed Frequent verbal cues (26-50%);Frequent tactile cues (26-50%) Problem List Activity limitations;Activity tolerance;Balance;Bed mobility;Body f unctions;Caregiver education;Decreased gait speed;Gait;Participation restriction s;Precaution education;Safety;Stairs;Strength;Transfers;W/C mobility;Propriocept ion Barriers to Discharge Lives alone;Requires caregiver assist;Safety concerns;Yuliya ent apprehension Clinical presentation Evolving Evaluation Complexity Moderate Timeframe Timeframe STG 5 visits Timeframe LTG 10 visits GOALS Goals Bed Mobility;Transfers;Gait distance;Strength STG;Activity tolerance;W/C l evel mobility Bed Mobility Goals Bed Mobility STG Goal Status New goal Bed Mobility STG Minimum assistance Bed Mobility LTG Goal Status New goal Bed Mobility LTG Modified independent Transfer Goals Transfer STG Goal Status New goal Transfer STG Moderate assistance (to R and L) Transfer STG - Assistive Device Least restrictive device Transfer LTG Goal Status New goal Transfers LTG Modified independent Transfer LTG - Assistive Device Least restrictive device Gait Distance/Assist Goals Gait Distance STG Goal Status New goal Gait Distance STG (ft) 10 ft Gait Assist STG Moderate assistance Gait STG - Assistive Device Least restrictive device Gait Distance LTG Goal Status New goal Gait Distance LTG (ft) 50 ft Gait Assist LTG Standby assist Gait LTG - Assistive Device Least restrictive device Strength STG Goals Area 1/Strength New goal Area 1/Strength Free Text patient to demonstrate improved LLE overall strength b y 1/2 MMT in order to improve independence with transfers and gait progression Activity Tolerance Goals Activity Tolerance STG Goal Status New goal Activity Tolerance STG Fair Activity Tolerance Goal Status LTG New goal Activity Tolerance LTG Fair;(+) W/C Level Mobility W/C Management Level STG Goal Status New goal W/C Mgmt Level Distance STG (ft) 50 W/C Management Level Assist STG Minimum assistance W/C Management Level LTG Goal Status New goal W/C Mgmt Level Distance LTG (ft) 150 W/C Management Level Assist LTG Modified independent *PLAN Pt/Family Goal to walk;to go home;back to normal Pt/Family involved in Plan of Care Yes;No family present PT Treatment Interventions Functional transfer training;LE strengthening/ROM;End urance training;Patient/family training;Equipment eval/education;Bed mobility;Ga it training;Balance activities;Dual tasking activities;Safety training;Progressi ve Mobility;Neuromuscular re-ed;Curb/stair training;Compensatory education;Coord ination activities;w/c mobility PT Frequency Daily PT Plan for next treatment progress transfers (trial RW) and upright activity PT Nursing Communication x1 stand pivot to R side Discharge Recommendations Based on Today's Functional Status PT Plan Continued PT during acute admission;Rehab Medicine Consult;Unsafe to DC home PT Plan need for Post Acute Care Continue high intensity progression of PT in po st-acute care Equipment Recommended Other (Comment);Least restrictive device (TBD pending patient progress) Equipment Recommend Purpose to reduce fall risk;to improve balance;to promote fu nctional mobility;to improve ADLs;to promote healing;to promote proper gait sequ ence;improve activity tolerance Equipment Recommended Comment continue to assess Plan comments Patient presents with acute CVA and significantly varied function from PLOF. Patient was previously Independent with mobility and cares in the [facility] and community. She currently requires Mod-Max A for bed mobility and transfers and demonstrates significant impairments in L side strength, coordination, prop rioception and further impairments in balance, transfer safety, activity toleran ce, safe gait and stair progression, and overall functional mobility. Patient wi ll benefit from continued acute and post-acute PT intervention at high intensity in order to return to PLOF and optimize mobility. She is motivated to work with therapy and return home, as well as having supportive family system. Patient is a moderate complexity evaluation based on clinical presentation, co-morbidities , and body systems involved. Care Coordination Care Coordination x1 with RN Fall Prevention Interventions Fall Prevention Interventions in place before leaving patient: Proper footwear;C all light in reach;Personal items/tray table in reach;Sitting in recliner chair with legs down;Notified nursing AM-PAC Basic Mobility Turning over in bed without bedrails 2 Sitting down on and standing up from a chair with arms 2 Moving from lying on back to sitting on the side of the bed 2 Moving to and from a bed to a chair 2 Need assistance to walk in hospital room 1 Climbing 3-5 steps with a railing 1 Basic Mobility - Raw Score 10 Scores from AM-PAC flowsheet Basic Mobility - T-Scale Score 28.13 Basic Mobility Percent Disability 71.92 % ACCOUNT DIRECTOR * End of Shift Note - Parth De La Cruz RN - 10/02/2022 11:02 PM CST End of Shift Summary and Plan of Care Started CPAP when sleeping. Not tolerate well. Had to take it off. Levo off (max at 0.03 in the beginning of shift). Pain under control and no acute changes. Se e chart for further information regarding shift. Goals per Patient Condition Fall Prevention Plan - Patient will remain free from injury related to falls. Se e the Daily cares/safety flowsheet for intervention documentation. Skin Integrity Plan - Patient skin integrity maintained. See integumentary flows heet for intervention documentation. Goals/Plan for Shift Patient/Family stated goal for shift: to get some rest Nursing goal for shift: maintain vs, neuro status and promote rest Plan: MRI, frequent neuro checks, medications as ordered, cluster cares, Q2 turn s to maintain skin integrity Goals/Plan for Hospital Stay Patient/Family stated goal for hospital stay: to be able to breath better, figur e out this stroke Nursing goal for hospital stay: maintain stabke VS, improve neuro status Plan: give meds as ordered ACCOUNT DIRECTOR * End of Shift Note - Cathryn Graves RN - 10/02/2022 5:53 PM CST End of Shift Summary and Plan of Care Neuro statues improves. Left lower leg able to lift off bed, left arm able to gr ab hand and flex wrist. Still unable to lift of the bed. Patient still needs Lev o gtt to maintain MAP goal. All other VSS. Goals per Patient Condition Fall Prevention Plan - Patient will remain free from injury related to falls. Se e the Daily cares/safety flowsheet for intervention documentation. Skin Integrity Plan - Patient skin integrity maintained. See integumentary flows heet for intervention documentation. Goals/Plan for Shift Patient/Family stated goal for shift: to get some rest Nursing goal for shift: maintain vs, neuro status and promote rest Plan: MRI, frequent neuro checks, medications as ordered, cluster cares, Q2 turn s to maintain skin integrity Goals/Plan for Hospital Stay Patient/Family stated goal for hospital stay: to be able to breath better, figur e out this stroke Nursing goal for hospital stay: maintain stabke VS, improve neuro status Plan: give meds as ordered ACCOUNT DIRECTOR * Care Progression Initial Assessment - Gillian Miller RN - 10/02/2022 3:45 PM CST Care Progression Initial Assessment Discharge Plan HH vs Rehab Patients discharge goal: HH vs Rehab Care Progression Plan: HH vs Rehab Other Comments: Recent TAVR in [facility] with new HF EF < 20%, SOB resp failure, Txs from [facility] Right side weakness on adm Patient retired and lives alone in a first level entry apt. She is completely independent in ADL's. She does not drive. She has very good family support that lives nearby and is able to assist with transport or any needs. She uses a cane and is suppose to be getting a walker through her HH She is current with [facility] after recent TAVR. No history of extended ca re Current with Jennie Holland APRN No AD/DPOA Medications are affordable Patient Information Information Obtained: EMR, patient and family Primary Caregiver : Self Support Systems: Children Living Arrangements: Alone Type of Residence: Private residence without support Current Home Health Services: Yes Type of Home Care Services: Shelter, Home PT Transportation Transportation at Discharge: Family Transportation at Appointments: Family Functional Capacity & DME Assistive Devices: Cane, Other (Comment) Respiratory Items: None Current & Past Services Current Resources Available: Rx Coverage Type of Rx Coverage: Part D Past Home Health Agencies: [facility] Provided: Nursing, PT Financial/Income Information Financial Hardship: N/A [place] in [place] Verified that patients primary care physician is Jennie Holland and receives thei r medications from No Pharmacies Listed Gillian Miller, 10/02/2022 16:00pm ACCOUNT DIRECTOR * Discharge Planning - Gillian Miller RN - 10/02/2022 2:05 PM CST Discharge Planning Interventions General Discharge Note Care Progression Consult Anticipated discharge disposition: Acute Rehab Facility/Unit Additional Information: Reason for Consult: Discharge Placement Stroke/TIA by imaging Intervention: EMR and consult reviewed 15:30 RN MITCHELL met with patient and her family to complete assessment and consul t wearing level 3 mask, level 1 mask and eye wear. CVA Pathway Initiated/CVA pathway initiated upon admission. Rehab/PT/OT/VP PURCHASING effo rts ongoing. Stroke education ongoing with mutually agreed upon goals of care/ d ischarge planning with patient and family. Discharge plan is pending treatment team.Recommendations and patient's identifie d needs after patient is no longer in critical status and able to participate in therapies. PT/OT/VP PURCHASING PMR consulted. Patient has not worked with PT/OT due to hypotension Care Progression will continue to follow for discahrge needs. 17:30 RN CC e-faxed referral to [facility] in [place] per patient and her daughter Josseline request. Her daughter Josseline works here. Patient can get rehab a nd be close to home Gillian Miller RN, BSN Job Coaching Weekend 10/02/2022 2:21 PM [id number]/[place] [phone] ACCOUNT DIRECTOR * Therapy Note - Brian Breaux, PT - 10/02/2022 1:35 PM CST Note order for Physical Therapy consultation. Chart review completed, pt recentl y admitted to [facility] and medical work up is ongoing. Pt currently requiring pressor s and had soft BP of 77/49 earlier this AM. Consulted RN who is in agreement to hold PT this date. Physical Therapy will follow for skilled needs. Thank you for consultation. ACCOUNT DIRECTOR * End of Shift Note - Adriana Severino RN - 10/02/2022 6:39 AM CST End of Shift Summary and Plan of Care Pt to MRI at 2044 (see results), A&Ox 2-4, Pt became hypotensive around midnight. Levo added on with a MAP goal of 60. Levo currently going at 0.04. Echo resulted (see results). Neuro status improved through out shift. LUE can follow commands by squeezing hands. LLE will wiggle toes. See flowsheets and MAR for any other information. Goals per Patient Condition Fall Prevention Plan - Patient will remain free from injury related to falls. Se e the Daily cares/safety flowsheet for intervention documentation. Skin Integrity Plan - Patient skin integrity maintained. See integumentary flows heet for intervention documentation. Goals/Plan for Shift Patient/Family stated goal for shift: to get some rest Nursing goal for shift: maintain vs, neuro status and promote rest Plan: MRI, frequent neuro checks, medications as ordered, cluster cares, Q2 turn s to maintain skin integrity Goals/Plan for Hospital Stay Patient/Family stated goal for hospital stay: to be able to breath better, figur e out this stroke Nursing goal for hospital stay: maintain stabke VS, improve neuro status Plan: give meds as ordered ACCOUNT DIRECTOR * Significant Event - Kait Patel MD - 10/02/2022 12:31 AM CST Overnight patient BP have dropped. BP 101/49, 96/56 at at around 9-10PM. However in the AM after she got back from MRI, BP 80/50, 79/48, checked multiple times. Patient did not get any medications for HTN during the night. Did get Lasix 40mg IV yesterday evening, with profuse diuresis ~800cc in last 5 hours. On exam, she is lethargic, and stable L sided weakness. Will start levophed for MAP goal of 60 and hold AM dose of Lasix for now. Patient breathing better, and lung exam better. Chest X ray in AM pending. Will continue to follow. Kait Patel Planner Internship ACCOUNT DIRECTOR * End of Shift Note - Cathryn Graves RN - 10/01/2022 6:13 PM CST End of Shift Summary and Plan of Care Patient arrived to CICU at 1040. See admit note. No neuro changed since. Checkin g neuro status Q4. Patient passed swallow per speech. Echo pending. Family at be dside during shift. All questions asked were answered. Goals per Patient Condition Fall Prevention Plan - Patient will remain free from injury related to falls. Se e the Daily cares/safety flowsheet for intervention documentation. Skin Integrity Plan - Patient skin integrity maintained. See integumentary flows heet for intervention documentation. Goals/Plan for Shift Patient/Family stated goal for shift: to feel better with breathing, figure out this stroke Nursing goal for shift: maintain stable VS, stable neuro status Plan: echo, frequent neuro checks, give meds as ordered Goals/Plan for Hospital Stay Patient/Family stated goal for hospital stay: to be able to breath better, figur e out this stroke Nursing goal for hospital stay: maintain stabke VS, improve neuro status Plan: give meds as ordered ACCOUNT DIRECTOR * Therapy Note - RAMESH Cruz - 10/01/2022 3:20 PM CST 10/01/22 1445 Visit Type Visit Type Bedside Swallow VP PURCHASING Visit Info Initial VP PURCHASING Visit On 10/01/22 Ordering Practitioner Zaida Colby MD Referral Reason Bedside swallow evaluation completed this date Patient/Family Reports Pt alert and cooperative during evaluation. Pt denies any past history of dysphagia VP PURCHASING Received On 10/01/22 Required Screenings Primary Language South Korean Swallow Subjective Subjective Patient in bed;Alert;Cooperative Patient Report Pt with no c/o Medical Staff Report Results and recommendations reviewed with RN Baseline Assessment Respiratory Status Unremarkable;Room air Behavior/Cognition Alert;Cooperative Dentition Dentures top;Permanent lower teeth Vision Impaired Patient Positioning Upright in bed Baseline Vocal Quality Normal Volitional Cough Weak Diet: current NPO Objective Evaluation Labial ROM WFL Labial Symmetry WFL Labial Strength WFL Lingual ROM WFL Lingual Symmetry WFL Facial ROM WFL Facial Symmetry WFL Velum WFL Mandible WFL Vocal Quality WFL Vocal Intensity Mildly decreased Apraxia WFL Intelligibility Intelligible Intelligibility Rating 81%-99% Dysarthria No Consistencies Assessed Food Trials/Consistencies Water, pudding, cracker Consistencies Assessed Yes Thin Presentation Cup;Self Fed Oral WFL Pharyngeal WFL Puree Presentation VP PURCHASING Fed;Spoon Oral WFL Pharyngeal WFL Solid Presentation Self Fed Oral WFL Pharyngeal WFL Other Observations Observations During Food Trials Pt with no overt s/s of aspiration on any PO tri als. Assessment Diagnosis WFL Risk for Aspiration No overt signs of aspiration noted Prognosis Considerations Current medical status Recommendations Evaluate sp/language/cognition Further evaluation not recommended at this time Recommendations Initiate PO diet Diet Solids Recommendations Regular consistency Diet Liquids Recommendations No liquid consistency restrictions Compensatory Swallowing Strategies Upright as possible for all oral intake;Eat/f eed slowly;Small bites/sips Recommended Form of Medications Take pills one at a time;With liquid Pt passed VP PURCHASING swallow evaluation Yes Considerations Prognostic Considerations Medical status Discharge Plan - DC After initial visit Plan Patient & family participated in development of Progression of Care Patient participated in development of treatment plan Treatment Interventions No further VP PURCHASING services indicated at this time Treatment Frequency Initial evaluation only VP PURCHASING Nursing Communication Results and recommendations reviewed with RN Education Education Provided Results and recommendations Audience Patient Mode Verbal explanation Response Verbalized understanding VP PURCHASING Timed Treatment Timed Minutes 15 Total Treatment Minutes 15 VP PURCHASING stroke pathway orders received. Pts medical records reviewed. Pts sw allow found to be WFL with bedside swallow evaluation by VP PURCHASING. Pt with no furthe r apparent VP PURCHASING needs at this time, will f/u as needed and monitor pts chart f or any PMR recommendations. If pt has no PM&R recommendations, VP PURCHASING will sign- off. Please re-consult VP PURCHASING should future needs arise. Thank you. ACCOUNT DIRECTOR * Code Documentation - Jer Reyes RN - 10/01/2022 10:47 AM CST Patient to CT with vanessa padilla and CV fellow Dr. Escudero. Dr Colby, cardiology a ttending, notified of patient condition by Dr. Escudero ACCOUNT DIRECTOR documented in this encounter Plan of Treatment Care Team Description Date [place] [address] [facility] [address] [place] [address] 10/17/2022 Office Visit Cardiology Order Schedule Name Type Priority Associated Diag noses Once - Routine for 1 Occurrences startin g 10/01/2022 until 10/01/2022 Culture, Sputum with Gram Microbiology Routine Stain Once - Routine for 1 Occurrences startin g 10/05/2022 until 10/05/2022 Urinalysis (includes Lab Routine microscopic review, if indicated) Expected: 10/17/2022, Expires: 4 Basic Metabolic Panel Lab Routine Acute re nal insufficiency Order Schedule Name Type Priority Associated Diag noses Expected: 10/17/2022, Expires: 3 Ambulatory referral to Outpatient Routine Acute i schemic stroke Neurology Referral (HCC) 1 Occurrences starting 10/10/2022 until 04/09/2023 Amb Referral To Cardiac Outpatient Routine Acute on chronic combined Rehab Referral systolic and diasto lic congestive heart failure (HCC) S/P TAVR (transcatheter aortic valve replacement) documented as of this encounter Procedures Comments Procedure Name Priority Date/Time Associated Diag nosis PROTHROMBIN TIME/INR Routine 10/10/2022 9:03 AM KEY ACCOUNT DIRECTOR MAGNESIUM Timed 10/10/2022 9:03 AM KEY ACCOUNT DIRECTOR CBC AND DIFF (MANUAL DIFF Routine 10/10/2022 IF NECESSARY) 9:03 AM KEY ACCOUNT DIRECTOR BASIC METABOLIC PANEL Timed 10/10/2022 9:03 AM KEY ACCOUNT DIRECTOR PROTHROMBIN TIME/INR Routine 10/09/2022 7:27 AM KEY ACCOUNT DIRECTOR MAGNESIUM Timed 10/09/2022 7:27 AM KEY ACCOUNT DIRECTOR CBC AND DIFF (MANUAL DIFF Routine 10/09/2022 IF NECESSARY) 7:27 AM KEY ACCOUNT DIRECTOR BASIC METABOLIC PANEL Timed 10/09/2022 7:27 AM KEY ACCOUNT DIRECTOR CT HEAD WO CONTRAST Routine 10/08/2022 7:41 AM KEY ACCOUNT DIRECTOR PROTHROMBIN TIME/INR Routine 10/07/2022 8:04 PM KEY ACCOUNT DIRECTOR MAGNESIUM Timed 10/07/2022 8:04 PM KEY ACCOUNT DIRECTOR CBC AND DIFF (MANUAL DIFF Routine 10/07/2022 IF NECESSARY) 8:04 PM KEY ACCOUNT DIRECTOR BASIC METABOLIC PANEL Timed 10/07/2022 8:04 PM KEY ACCOUNT DIRECTOR GLUCOSE POC Routine 10/07/2022 12:17 PM KEY ACCOUNT DIRECTOR GLUCOSE POC Routine 10/07/2022 7:47 AM KEY ACCOUNT DIRECTOR PROTHROMBIN TIME/INR Routine 10/07/2022 6:10 AM KEY ACCOUNT DIRECTOR MAGNESIUM Timed 10/07/2022 6:10 AM KEY ACCOUNT DIRECTOR CBC AND DIFF (MANUAL DIFF Routine 10/07/2022 IF NECESSARY) 6:10 AM KEY ACCOUNT DIRECTOR BASIC METABOLIC PANEL Timed 10/07/2022 6:10 AM KEY ACCOUNT DIRECTOR GLUCOSE POC Routine 10/06/2022 8:50 PM KEY ACCOUNT DIRECTOR GLUCOSE POC Routine 10/06/2022 5:07 PM KEY ACCOUNT DIRECTOR GLUCOSE POC Routine 10/06/2022 11:51 AM KEY ACCOUNT DIRECTOR XR CHEST SINGLE VIEW Routine 10/06/2022 FRONTAL 7:50 AM KEY ACCOUNT DIRECTOR GLUCOSE POC Routine 10/06/2022 7:28 AM KEY ACCOUNT DIRECTOR PROTHROMBIN TIME/INR Routine 10/06/2022 6:48 AM KEY ACCOUNT DIRECTOR B TYPE NATRIURETIC Routine 10/06/2022 PEPTIDE (BNP) 6:47 AM KEY ACCOUNT DIRECTOR MAGNESIUM Timed 10/06/2022 6:47 AM KEY ACCOUNT DIRECTOR CBC AND DIFF (MANUAL DIFF Routine 10/06/2022 IF NECESSARY) 6:47 AM KEY ACCOUNT DIRECTOR BASIC METABOLIC PANEL Timed 10/06/2022 6:47 AM KEY ACCOUNT DIRECTOR GLUCOSE POC Routine 10/05/2022 8:19 PM KEY ACCOUNT DIRECTOR GLUCOSE POC Routine 10/05/2022 4:51 PM KEY ACCOUNT DIRECTOR XR CHEST 2 VIEWS (PA AND Routine 10/05/2022 LATERAL) 1:18 PM KEY ACCOUNT DIRECTOR GLUCOSE POC Routine 10/05/2022 12:06 PM KEY ACCOUNT DIRECTOR GLUCOSE POC Routine 10/05/2022 7:40 AM KEY ACCOUNT DIRECTOR PROTHROMBIN TIME/INR Routine 10/05/2022 7:25 AM KEY ACCOUNT DIRECTOR MAGNESIUM Timed 10/05/2022 7:25 AM KEY ACCOUNT DIRECTOR CBC AND DIFF (MANUAL DIFF Routine 10/05/2022 IF NECESSARY) 7:25 AM KEY ACCOUNT DIRECTOR BASIC METABOLIC PANEL Timed 10/05/2022 7:25 AM KEY ACCOUNT DIRECTOR GLUCOSE POC Routine 10/04/2022 9:03 PM KEY ACCOUNT DIRECTOR GLUCOSE POC Routine 10/04/2022 4:30 PM KEY ACCOUNT DIRECTOR FL SWALLOWING FUNCTION W Routine 10/04/2022 VIDEO 3:31 PM KEY ACCOUNT DIRECTOR GLUCOSE POC Routine 10/04/2022 11:19 AM KEY ACCOUNT DIRECTOR GLUCOSE POC Routine 10/04/2022 7:49 AM KEY ACCOUNT DIRECTOR PROTHROMBIN TIME/INR Routine 10/03/2022 11:46 PM KEY ACCOUNT DIRECTOR MAGNESIUM Timed 10/03/2022 11:46 PM KEY ACCOUNT DIRECTOR CBC AND DIFF (MANUAL DIFF Routine 10/03/2022 IF NECESSARY) 11:46 PM KEY ACCOUNT DIRECTOR BASIC METABOLIC PANEL Timed 10/03/2022 11:46 PM KEY ACCOUNT DIRECTOR GLUCOSE POC Routine 10/03/2022 9:09 PM KEY ACCOUNT DIRECTOR GLUCOSE POC Routine 10/03/2022 4:45 PM KEY ACCOUNT DIRECTOR GLUCOSE POC Routine 10/03/2022 11:23 AM KEY ACCOUNT DIRECTOR TROPONIN-I HS 0HR Routine 10/03/2022 9:00 AM KEY ACCOUNT DIRECTOR XR CHEST SINGLE VIEW PORFIRIO 10/03/2022 FRONTAL 8:47 AM KEY ACCOUNT DIRECTOR GLUCOSE POC Routine 10/03/2022 7:27 AM KEY ACCOUNT DIRECTOR PROTHROMBIN TIME/INR Routine 10/03/2022 4:42 AM KEY ACCOUNT DIRECTOR MAGNESIUM Timed 10/03/2022 4:42 AM KEY ACCOUNT DIRECTOR CBC AND DIFF (MANUAL DIFF Routine 10/03/2022 IF NECESSARY) 4:42 AM KEY ACCOUNT DIRECTOR BASIC METABOLIC PANEL Timed 10/03/2022 4:42 AM KEY ACCOUNT DIRECTOR GLUCOSE POC Routine 10/02/2022 8:11 PM KEY ACCOUNT DIRECTOR GLUCOSE POC Routine 10/02/2022 4:59 PM KEY ACCOUNT DIRECTOR GLUCOSE POC Routine 10/02/2022 11:33 AM KEY ACCOUNT DIRECTOR LACTATE VENOUS WB STAT 10/02/2022 9:26 AM KEY ACCOUNT DIRECTOR GLUCOSE POC Routine 10/02/2022 7:44 AM KEY ACCOUNT DIRECTOR XR CHEST SINGLE VIEW Routine 10/02/2022 FRONTAL 7:05 AM KEY ACCOUNT DIRECTOR PROTHROMBIN TIME/INR Routine 10/02/2022 5:24 AM KEY ACCOUNT DIRECTOR LACTATE VENOUS WB Timed 10/02/2022 12:59 AM KEY ACCOUNT DIRECTOR CBC AND DIFF (MANUAL DIFF Routine 10/02/2022 IF NECESSARY) 12:17 AM KEY ACCOUNT DIRECTOR BASIC METABOLIC PANEL Routine 10/02/2022 12:17 AM KEY ACCOUNT DIRECTOR GLUCOSE POC Routine 10/01/2022 9:51 PM KEY ACCOUNT DIRECTOR MRI HEAD W WO CONTRAST Routine 10/01/2022 9:19 PM KEY ACCOUNT DIRECTOR ECHO LIMITED W DOPPLER Routine 10/01/2022 AND COLOR FLOW W CONTRAST 4:07 PM KEY ACCOUNT DIRECTOR GLUCOSE POC Routine 10/01/2022 3:19 PM KEY ACCOUNT DIRECTOR ECG Routine 10/01/2022 1:40 PM KEY ACCOUNT DIRECTOR CULTURE, BLOOD Timed 10/01/2022 12:48 PM KEY ACCOUNT DIRECTOR CULTURE, BLOOD Timed 10/01/2022 12:32 PM KEY ACCOUNT DIRECTOR MRSA NASAL PCR Routine 10/01/2022 12:26 PM KEY ACCOUNT DIRECTOR LIPID PANEL Add-On 10/01/2022 12:22 PM KEY ACCOUNT DIRECTOR LACTATE VENOUS WB STAT 10/01/2022 12:22 PM KEY ACCOUNT DIRECTOR CT ANGIO NECK Routine 10/01/2022 11:07 AM KEY ACCOUNT DIRECTOR CT ANGIO HEAD AND STAT 10/01/2022 PERFUSION P 11:05 AM KEY ACCOUNT DIRECTOR STROKE CT HEAD WO STAT 10/01/2022 CONTRAST 11:03 AM KEY ACCOUNT DIRECTOR THYROID STIMULATING Routine 10/01/2022 HORMONE 10:52 AM KEY ACCOUNT DIRECTOR PROTHROMBIN TIME/INR Routine 10/01/2022 10:52 AM KEY ACCOUNT DIRECTOR MAGNESIUM Routine 10/01/2022 10:52 AM KEY ACCOUNT DIRECTOR HEMOGLOBIN A1C Add-On 10/01/2022 10:52 AM KEY ACCOUNT DIRECTOR COMPREHENSIVE METABOLIC Routine 10/01/2022 PANEL 10:52 AM KEY ACCOUNT DIRECTOR COMPLETE BLOOD COUNT Routine 10/01/2022 10:52 AM KEY ACCOUNT DIRECTOR TROPONIN-I HS 0HR Add-On 10/01/2022 10:52 AM KEY ACCOUNT DIRECTOR XR CHEST SINGLE VIEW PORFIRIO 10/01/2022 FRONTAL 10:50 AM KEY ACCOUNT DIRECTOR GLUCOSE POC Routine 10/01/2022 10:46 AM KEY ACCOUNT DIRECTOR OXYGEN Routine 10/01/2022 10:38 AM KEY ACCOUNT DIRECTOR documented in this encounter Results * (ABNORMAL) Prothrombin Time/INR (10/10/2022 9:03 AM KEY ACCOUNT DIRECTOR) Only the most recent of 10 results within the time period is included. Pathologist Signature Component Value Ref Test Method Analysis Performed A t Range Time Protime 15.1 (H) 11.4 - 10/10/2022 [facility] 15.0 Sec 9:44 AM KEY ACCOUNT DIRECTOR INR 1.2 0.8 - 10/10/2022 [facility] 1.2 9:44 AM KEY ACCOUNT DIRECTOR Anatomical Location / Laterality Collection Method / Volume Ophelia ection Time Received Time Specimen (Source) Venipuncture / Unknown 10/10/2022 9:03 AM KEY ACCOUNT DIRECTOR 0 10/10/2022 9:14 AM KEY ACCOUNT DIRECTOR Blood (Venous) Santana Keating MD LAB BLOOD ORDERABLES City/State/ZIP Code Phone Number [place] [address] [facility] [address] * (ABNORMAL) Magnesium (10/10/2022 9:03 AM KEY ACCOUNT DIRECTOR) Only the most recent of 9 results within the time period is included. Pathologist Signature Component Value Ref Test Method Analysis Performed A t Range Time Magnesium 2.8 (H) 1.6 - 10/10/2022 [facility] 2.6 9:50 AM mg/dL KEY ACCOUNT DIRECTOR Anatomical Location / Laterality Collection Method / Volume Ophelia ection Time Received Time Specimen (Source) Venipuncture / Unknown 10/10/2022 9:03 AM KEY ACCOUNT DIRECTOR 0 10/10/2022 9:14 AM KEY ACCOUNT DIRECTOR Blood (Venous) Santana Keating MD LAB BLOOD ORDERABLES City/State/ZIP Code Phone Number [place] [address] [address] [facility] * (ABNORMAL) CBC and Diff (manual diff if necessary) (10/10/2022 9:03 AM KEY ACCOUNT DIRECTOR) Only the most recent of 9 results within the time period is included. Pathologist Signature Component Value Ref Test Method Analysis Performed A t Range Time WBC 8.00 4.00 - 10/10/2022 [facility] 11.00 9:26 AM TH/uL KEY ACCOUNT DIRECTOR RBC 3.49 (L) 4.00 - 10/10/2022 [facility] 5.00 9:26 AM mil/uL KEY ACCOUNT DIRECTOR Hemoglobin 10.3 (L) 12.0 - 10/10/2022 [facility] 15.0 9:26 AM g/dL KEY ACCOUNT DIRECTOR Hematocrit 33 (L) 36 - 45 10/10/2022 [facility] % 9:26 AM KEY ACCOUNT DIRECTOR MCV 95 80 - 99 10/10/2022 [facility] fL 9:26 AM KEY ACCOUNT DIRECTOR MCH 30 27 - 34 10/10/2022 [facility] pg 9:26 AM KEY ACCOUNT DIRECTOR MCHC 31 (L) 32 - 36 10/10/2022 [facility] g/dL 9:26 AM KEY ACCOUNT DIRECTOR RDW 14.1 9.0 - 10/10/2022 [facility] 14.5 % 9:26 AM KEY ACCOUNT DIRECTOR Platelet Count 404 (H) 140 - 10/10/2022 [facility] 400 9:26 AM Th/uL KEY ACCOUNT DIRECTOR MPV 10.2 9.4 - 10/10/2022 [facility] 12.3 fL 9:26 AM KEY ACCOUNT DIRECTOR Nucleated RBCs 0 0 - 0 10/10/2022 [facility] /100 WBC 9:26 AM KEY ACCOUNT DIRECTOR % Neutrophils 65 45 - 78 10/10/2022 [facility] % 9:26 AM KEY ACCOUNT DIRECTOR % Lymphocytes 20 15 - 47 10/10/2022 [facility] % 9:26 AM KEY ACCOUNT DIRECTOR % Monocytes 6 0 - 12 % 10/10/2022 [facility] 9:26 AM KEY ACCOUNT DIRECTOR % Eosinophils 7 0 - 7 % 10/10/2022 [facility] 9:26 AM KEY ACCOUNT DIRECTOR % Basophils 2 0 - 2 % 10/10/2022 [facility] 9:26 AM KEY ACCOUNT DIRECTOR % Imm Grans 0 0 - 1 % 10/10/2022 [facility] 9:26 AM KEY ACCOUNT DIRECTOR # Granulocytes 5.20 1.70 - 10/10/2022 [facility] 6.80 9:26 AM TH/uL KEY ACCOUNT DIRECTOR # Lymphocytes 1.62 1.00 - 10/10/2022 [facility] 3.30 9:26 AM TH/uL KEY ACCOUNT DIRECTOR # Monocytes 0.48 0.20 - 10/10/2022 [facility] 0.90 9:26 AM TH/uL KEY ACCOUNT DIRECTOR # Eosinophils 0.55 (H) 0.00 - 10/10/2022 [facility] 0.40 9:26 AM TH/uL KEY ACCOUNT DIRECTOR # Basophils 0.12 (H) 0.00 - 10/10/2022 [facility] 0.10 9:26 AM TH/uL KEY ACCOUNT DIRECTOR Anatomical Location / Laterality Collection Method / Volume Ophelia ection Time Received Time Specimen (Source) Venipuncture / Unknown 10/10/2022 9:03 AM KEY ACCOUNT DIRECTOR 0 10/10/2022 9:14 AM KEY ACCOUNT DIRECTOR Blood (Venous) Santana Keating MD LAB BLOOD ORDERABLES City/State/ZIP Code Phone Number [place] [address] [place] [address] * (ABNORMAL) Basic Metabolic Panel (10/10/2022 9:03 AM KEY ACCOUNT DIRECTOR) Only the most recent of 9 results within the time period is included. Pathologist Signature Component Value Ref Test Method Analysis Performed A t Range Time Sodium 136 136 - 10/10/2022 [facility] 145 9:50 AM mEq/L KEY ACCOUNT DIRECTOR Potassium 4.0 3.4 - 10/10/2022 [facility] 5.1 9:50 AM mEq/L KEY ACCOUNT DIRECTOR Chloride 100 98 - 109 10/10/2022 [facility] mEq/L 9:50 AM KEY ACCOUNT DIRECTOR Comment: Reference interval updated 10/14/2021. Carbon Dioxide 26 20 - 31 10/10/2022 [facility] mEq/L 9:50 AM KEY ACCOUNT DIRECTOR Anion Gap 10 <17 10/10/2022 [facility] mmol/L 9:50 AM KEY ACCOUNT DIRECTOR Comment: Reference interval updated 02/18/22. Calcium 9.5 8.3 - 10/10/2022 [facility] 10.6 9:50 AM mg/dL KEY ACCOUNT DIRECTOR Glucose 220 (H) 70 - 100 10/10/2022 [facility] mg/dL 9:50 AM KEY ACCOUNT DIRECTOR Blood Urea Nitrogen 52 (H) 9 - 23 10/10/2022 [facility] mg/dL 9:50 AM KEY ACCOUNT DIRECTOR Creatinine 1.52 (H) 0.55 - 10/10/2022 [facility] 1.02 9:50 AM mg/dL KEY ACCOUNT DIRECTOR eGFR 35.2 (L) 60.0 - 10/10/2022 [facility] 200.0 9:50 AM mL/min/1 KEY ACCOUNT DIRECTOR .73m*2 Comment: The National Kidney Foundation and the [place] [employer] Neph[employer] (NKF-ASN) recommends using the [...] (Source) Venipuncture / Unknown 10/10/2022 9:03 AM KEY ACCOUNT DIRECTOR 0 10/10/2022 9:14 AM KEY ACCOUNT DIRECTOR Blood (Venous) Santana Keating MD LAB BLOOD ORDERABLES City/State/ZIP Code Phone Number Per[place] [address] [place] [address] * CT Head wo contrast (10/08/2022 7:41 AM KEY ACCOUNT DIRECTOR) Modality Anatomical Region Laterality Computed Tomography Head Anatomical Location / Laterality Collection Method / Volume Ophelia ection Time Received Time Specimen (Source) 10/08/2022 7:39 AM KEY ACCOUNT DIRECTOR Impressions 10/08/2022 9:03 AM KEY ACCOUNT DIRECTOR Impression: Redemonstrated hypodensities in the right frontoparietal, left parietal, and bilateral cerebellum with increased surrounding vasogenic edema consistent with evolving infarcts. No acute hemorrhage. No significant mass effect or midline shift. Mild cerebral volume loss. Mild chronic small vessel ischemic disease. ATTESTATION STATEMENT: The Staff Radiologist has personally reviewed the images and dictated, reviewed, or edited the final report. READING SITE: Location [facility] Narrative 10/08/2022 9:03 AM KEY ACCOUNT DIRECTOR Patient: DONNELL DIEHL Sex#: F #: 1945 Raj#: [id number] Location: [address] H634-01 Ordering Provider: MICHAEL NORWOOD Procedure Requested: [id number] CT HEAD WO CONTRAST Reason for Exam: [...] The mastoid air cells are clear. The doctor of nurse anesthesia practice topogram shows no lytic lesion or fracture. Procedure Note Reid Eden MD - 10/08/2022 Patient: DONNELL DIEHL Sex#: F #: 1945 Raj#: [id number] Location: [address] H634-01 Ordering Provider: MICHAEL NORWOOD Procedure Requested: [id number] CT HEAD WO CONTRAST Reason for Exam: [...] The mastoid air cells are clear. The doctor of nurse anesthesia practice topogram shows no lytic lesion or fracture. [...] final report. READING SITE: Location [facility] One Michael Norwood MD IMG CT ORDERABLES * (ABNORMAL) GLUCOSE POC (10/07/2022 12:17 PM KEY ACCOUNT DIRECTOR) Only the most recent of 25 results within the time period is included. Pathologist Signature Component Value Ref Test Method Analysis Performed A t Range Time Glucose POC 151 (H) 70 - 100 10/07/2022 [facility] mg/dL 12:17 PM KEY ACCOUNT DIRECTOR Anatomical Location / Laterality Collection Method / Volume Ophelia ection Time Received Time Specimen (Source) 10/07/2022 12:17 PM KEY ACCOUNT DIRECTOR 10/07/19 12:24 PM KEY ACCOUNT DIRECTOR Blood (Venous) Michael Norwood MD LAB BLOOD ORDERABLES City/State/ZIP Code Phone Number [place] [address] * XR Chest single view frontal (10/06/2022 7:50 AM KEY ACCOUNT DIRECTOR) Only the most recent of 4 results within the time period is included. Modality Anatomical Region Laterality Computed Radiography Chest Anatomical Location / Laterality Collection Method / Volume Ophelia ection Time Received Time Specimen (Source) 10/06/2022 7:45 AM KEY ACCOUNT DIRECTOR Impressions 10/06/2022 9:59 AM KEY ACCOUNT DIRECTOR Stable exam. READING SITE: Home, [place] of State Narrative 10/06/2022 9:59 AM KEY ACCOUNT DIRECTOR Patient: DONNELL DIEHL Sex#: F #: 1945 Raj#: [id number] Location: [address] H634-01 Ordering Provider: SANTANA KEATING Procedure Requested: [id number] XR CHEST SINGLE VIEW FRONTAL Reason for [...] Note Juan Celaya MD - 10/06/2022 Patient: DONNELL DIEHL Sex#: F #: 1945 Raj#: [id number] Location: [address] H634-01 Ordering Provider: SANTANA KEATING Procedure Requested: [id number] XR CHEST SINGLE VIEW FRONTAL Reason for [...] READING SITE: Home, [place] State Santana Keating MD IMG DIAGNOSTIC IMAGING [facility] * (ABNORMAL) BNP (10/06/2022 6:47 AM KEY ACCOUNT DIRECTOR) Pathologist Signature Component Value Ref Test Method Analysis Performed A t Range Time BNP 1,228 (H) 0 - 100 10/06/2022 [facility] pg/mL 8:37 AM KEY ACCOUNT DIRECTOR Anatomical Location / Laterality Collection Method / Volume Ophelia ection Time Received Time Specimen (Source) Venipuncture / Unknown 10/06/2022 6:47 AM KEY ACCOUNT DIRECTOR 0 10/06/2022 7:53 AM KEY ACCOUNT DIRECTOR Blood (Venous) Narrative R - 10/06/2022 8:37 AM KEY ACCOUNT DIRECTOR [facility] converted from NTproBNP (Ortho - Vitros 5600) to BNP ([facility]) on June 06, 2021. Ronny Leone MD LAB BLOOD ORDERABLES City/State/ZIP Code Phone Number [place] [address] * XR Chest 2 views (PA and lateral) (10/05/2022 1:18 PM KEY ACCOUNT DIRECTOR) Modality Anatomical Region Laterality Computed Radiography Chest Anatomical Location / Laterality Collection Method / Volume Ophelia ection Time Received Time Specimen (Source) 10/05/2022 1:04 PM KEY ACCOUNT DIRECTOR Impressions 10/05/2022 1:35 PM KEY ACCOUNT DIRECTOR Improving bibasilar pulmonary opacities with no confluent consolidation. Improving right-sided pleural effusion. READING SITE: [place], [place] Narrative 10/05/2022 1:35 PM KEY ACCOUNT DIRECTOR Patient: DONNELL DIEHL Sex#: F #: 1945 Raj#: [id number] Location: [address] H634-01 Ordering Provider: NEVILLE WATKINS Procedure Requested: [id number] XR CHEST 2 VIEWS (PA AND LATERAL) [...] Note Juan Celaya MD - 10/05/2022 Patient: DONNELL DIEHL Sex#: F #: 1945 Raj#: [id number] Location: [address] H634-01 Ordering Provider: NEVILLE WATKINS Procedure Requested: [id number] XR CHEST 2 VIEWS (PA AND LATERAL) [...] READING SITE: [place], [place] Neville Watkins APRN IMG DIAGNOSTIC IMAGING [facility] * [place] Swallowing function w video (10/04/2022 3:31 PM KEY ACCOUNT DIRECTOR) Modality Anatomical Region Laterality Computed Radiography Abdomen, Lung, Chest, Neck, Head Anatomical Location / Laterality Collection Method / Volume Ophelia ection Time Received Time Specimen (Source) 10/04/2022 3:10 PM KEY ACCOUNT DIRECTOR Impressions 10/04/2022 5:07 PM KEY ACCOUNT DIRECTOR Mild pharyngeal dysphagia. Please refer to the speech pathology report for further details. ATTESTATION STATEMENT: The Staff Radiologist has personally reviewed the images and dictated, reviewed, or edited the final report. READING SITE: [facility] 10/04/2022 5:07 PM KEY ACCOUNT DIRECTOR Patient: DONNELL DIEHL Sex#: F #: 1945 Raj#: [id number] Location: [address] H634-01 Ordering Provider: BLANE BUCKNER Procedure Requested: [id number] FL SWALLOWING FUNCTION W VIDEO Reason for [...] No cricopharyngeal abnormalities. Procedure Note Luis Eduardo Singh DO - 10/04/2022 Patient: DONNELL DIEHL Sex#: F #: 1945 Raj#: [id number] [facility] Ordering Provider: BLANE BUCKNER Procedure Requested: [id number] FL SWALLOWING FUNCTION W VIDEO Reason for [...] or edited the final report. READING SITE: [facility] Santana Keating MD IMG FLUOROSCOPY ORDERABLES * (ABNORMAL) Troponin-I HS Single (10/03/2022 9:00 AM KEY ACCOUNT DIRECTOR) Only the most recent of 2 results within the time period is included. Pathologist Signature Component Value Ref Test Method Analysis Performed A t Range Time Troponin I, 0HR HS 1,011 (HH) <=34 10/03/2022 [facility] pg/mL 10:01 AM KEY ACCOUNT DIRECTOR Anatomical Location / Laterality Collection Method / Volume Ophelia ection Time Received Time Specimen (Source) Venipuncture / Unknown 10/03/2022 9:00 AM KEY ACCOUNT DIRECTOR 0 10/03/2022 9:05 AM KEY ACCOUNT DIRECTOR Blood (Venous) Narrative [facility] - 10/03/2022 10:01 AM KEY ACCOUNT DIRECTOR [facility] converted from Troponin I (Ortho - Vitros 5600) to High-Sensitivity Troponin I ([employer] [facility] [employer]) on June 06, 2021. Santana Keating MD LAB BLOOD ORDERABLES City/State/ZIP Code Phone Number [place] [address] [facility] [address] [facility] * Lactate Venous WB - Reflex STAT (10/02/2022 9:26 AM KEY ACCOUNT DIRECTOR) Only the most recent of 3 results within the time period is included. Pathologist Signature Component Value Ref Test Method Analysis Performed A t Range Time Lactate Venous 0.9 0.0 - 10/02/2022 [facility] 2.0 9:38 AM mmol/L KEY ACCOUNT DIRECTOR Anatomical Location / Laterality Collection Method / Volume Ophelia ection Time Received Time Specimen (Source) Arterial / Unknown 10/02/2022 9:26 AM KEY ACCOUNT DIRECTOR 10/02 9:33 AM KEY ACCOUNT DIRECTOR Blood (Venous) Nael Ledbetter MD LAB BLOOD ORDERABLES City/State/ZIP Code Phone Number [place] [address] [facility] [address] [facility] [address] * MRI Head w wo contrast (10/01/2022 9:19 PM KEY ACCOUNT DIRECTOR) Modality Anatomical Region Laterality Magnetic Resonance Head Anatomical Location / Laterality Collection Method / Volume Ophelia ection Time Received Time Specimen (Source) 10/01/2022 8:51 PM KEY ACCOUNT DIRECTOR Impressions 10/02/2022 7:02 AM KEY ACCOUNT DIRECTOR 1. Multifocal acute infarcts involving the bilateral [...] chronic small vessel ischemic disease. READING SITE: [facility]. ATTESTATION STATEMENT: The Staff Radiologist has personally reviewed the images and dictated, reviewed, or edited the final report. Narrative 10/02/2022 7:02 AM KEY ACCOUNT DIRECTOR Patient: DONNELL DIEHL Sex#: F #: 1945 Raj#: [id number] Location: [address] [id number] Ordering Provider: ANDRÉS EWING Procedure Requested: [id number] MRI HEAD W WO CONTRAST Reason for [...] Note Theron More DO - 10/02/2022 Patient: DONNELL DIEHL Sex#: F #: 1945 Raj#: [id number] Location: [address] [id number] Ordering Provider: ANDRÉS EWING Procedure Requested: [id number] MRI HEAD W WO CONTRAST Reason for [...] chronic small vessel ischemic disease. READING SITE: [facility]. ATTESTATION STATEMENT: The Staff Radiologist has personally reviewed the images and dictated, reviewed, or edited the final report. Andrés Ewing RN IMG MRI ORDERABLES ANP * ECHO LIMITED W DOPPLER AND COLOR FLOW W CONTRAST (10/01/2022 4:07 PM KEY ACCOUNT DIRECTOR) Pathologist Signature Component Value Ref Test Method Analysis Performed A t Range Time ECHOCRITICAL Yes, new PROSOLV critical echo findings available for this patient Modality Anatomical Region Laterality Ultrasound Chest Anatomical Location / Laterality Collection Method / Volume Ophelia ection Time Received Time Specimen (Source) 10/01/2022 3:27 PM KEY ACCOUNT DIRECTOR Narrative 10/01/2022 5:55 PM KEY ACCOUNT DIRECTOR Conclusions 1. Severely reduced left ventricular systolic [...] gradient 6 mmHg at 86 bpm) and dwxj-cs-yzefzrbw regurgitation. Comparison * No previous study for comparison. Patient Info Name: Donnell Diehl Age: 77 years : 1945 Gender: Female [...] Referring Physician: Clay Bower Attending Physician: Zaida Colby Plant Security Guard: Jazmine Lopez * Definity was used to [...] gradient 6 mmHg at 86 bpm) and wvll-ia-mstibicg regurgitation. * Thickened mitral valve leaflets. Tricuspid [...] gradient 6 mmHg at 86 bpm) and jrkp-rp-oziyabcs regurgitation. Comparison * No previous study for comparison. Patient Info Name: Donnell Diehl Age: 77 years : 1945 Gender: Female [...] Referring Physician: Clay Bower Attending Physician: Zaida Colby Plant Security Guard: Jazmine Lopez * Definity was used to [...] gradient 6 mmHg at 86 bpm) and adys-pz-oozlfgvv regurgitation. * Thickened mitral valve leaflets. Tricuspid [...] * Electrocardiogram without magnet (10/01/2022 1:40 PM KEY ACCOUNT DIRECTOR) Pathologist Signature Component Value Ref Test Method Analysis Performed A t Range Time QRSd 146 TRACEMASTER QT 444 TRACEMASTER QTC 541 TRACEMASTER ECGHR 89 TRACEMASTER ECGPR 184 TRACEMASTER Anatomical Location / Laterality Collection Method / Volume Ophelia ection Time Received Time Specimen (Source) 10/01/2022 1:40 PM KEY ACCOUNT DIRECTOR Narrative TRACEMASTER - 10/02/2022 9:44 AM KEY ACCOUNT DIRECTOR [facility] Test Date: 2022-10-01 Pat Name: DONNELL DIEHL Department: [facility] Room: [facility] Gender: Female Afterschool: [id number] : 1945 Requested By: CARMENCITA ESCUDERO Order Number: [id number] Reading MD: Adebayo Gardner Measurements Intervals [place] Rate: 89 P: 51 MD: 184 QRS: -46 QRSD: 146 T: 153 QT: 444 QTc: 541 Interpretive Statements Sinus rhythm Probable left atrial enlargement Left bundle branch block Electronically Signed On 10-02-2022 9:44:02 KEY ACCOUNT DIRECTOR by Adebayo Gardner Procedure Note Adebayo Gardner MD - 10/02/2022 [facility] Test Date: 2022-10-01 Pat Name: DONNELL DIEHL Department: [facility] Room: [facility] Gender: Female Afterschool: [id number] : 1945 Requested By: CARMENCITA ESCUDERO Order Number: [id number] Reading MD: Adebayo Gardner Measurements Intervals [place] Rate: 89 P: 51 MD: 184 QRS: -46 QRSD: 146 T: 153 QT: 444 QTc: 541 Interpretive Statements Sinus rhythm Probable left atrial enlargement Left bundle branch block Electronically Signed On 10-02-2022 9:44:02 KEY ACCOUNT DIRECTOR by Adebayo Gardner Carmencita Escudero MD ECG ORDERABLES City/State/ZIP Code Phone Number Performing Address Organization TRACEMASTER * Culture, Blood (10/01/2022 12:48 PM KEY ACCOUNT DIRECTOR) Only the most recent of 2 results within the time period is included. Pathologist Signature Component Value Ref Test Method Analysis Performed A t Range Time Culture growth No growth at [place] 10/06/2022 [facility] 5 days 1:00 PM KEY ACCOUNT DIRECTOR Anatomical Location / Laterality Collection Method / Volume Ophelia ection Time Received Time Specimen (Source) Venipuncture / Unknown 10/01/2022 12:48 PM KEY ACCOUNT DIRECTOR 0 10/01/2022 12:54 PM KEY ACCOUNT DIRECTOR Blood (Peripheral, Wrist) Carmencita Escudero MD MICROBIOLOGY - [facility] Code Phone Number [place] [address] [facility] [address] * MRSA Nasal PCR (10/01/2022 12:26 PM KEY ACCOUNT DIRECTOR) Pathologist Signature Component Value Ref Test Method Analysis Performed A t Range Time MRSA PCR Not Detected Not 10/01/2022 [facility] Detected 7:41 PM KEY ACCOUNT DIRECTOR Anatomical Location / Laterality Collection Method / Volume Ophelia ection Time Received Time Specimen (Source) Non-Blood Collection / Unknown 10/01/2022 12:26 PM KEY ACCOUNT DIRECTOR 10/01/2022 12:30 PM KEY ACCOUNT DIRECTOR Swab (NASOPHARYNGEAL SWAB) Carmencita Escudero MD MICROBIOLOGY - [facility] Code Phone Number [place] [address] [address] * Lipid Panel (10/01/2022 12:22 PM KEY ACCOUNT DIRECTOR) Pathologist Signature Component Value Ref Test Method Analysis Performed A t Range Time Cholesterol 115 <200 10/01/2022 [facility] mg/dL 6:24 PM KEY ACCOUNT DIRECTOR HDL Cholesterol 58 >40 10/01/2022 [facility] mg/dL 6:24 PM KEY ACCOUNT DIRECTOR Non-HDL Cholesterol 57 <=130 10/01/2022 [facility] mg/dL 6:24 PM KEY ACCOUNT DIRECTOR Triglycerides 67 <150 10/01/2022 [facility] mg/dL 6:24 PM KEY ACCOUNT DIRECTOR LDL Cholesterol 43.6 0 - 99 10/01/2022 [facility] mg/dL 6:24 PM KEY ACCOUNT DIRECTOR Cholesterol/HDL 2.0 0.0 - 10/01/2022 [facility] Ratio 4.5 6:24 PM KEY ACCOUNT DIRECTOR Anatomical Location / Laterality Collection Method / Volume Ophelia ection Time Received Time Specimen (Source) Venipuncture / Unknown 10/01/2022 12:22 PM KEY ACCOUNT DIRECTOR 0 10/01/2022 12:28 PM KEY ACCOUNT DIRECTOR Blood (Venous) Andrés Ewing RN LAB BLOOD ORDERABLES ANP City/State/ZIP Code Phone Number [place]forming [place] [address] * CT Angio Neck (10/01/2022 11:07 AM KEY ACCOUNT DIRECTOR) Modality Anatomical Region Laterality Computed Tomography Neck, Vascular Anatomical Location / Laterality Collection Method / Volume Ophelia ection Time Received Time Specimen (Source) 10/01/2022 11:04 AM KEY ACCOUNT DIRECTOR Impressions 10/01/2022 12:58 PM KEY ACCOUNT DIRECTOR Impression: 1. No stenosis of the cervical carotid or vertebral arteries. 2. Beaded appearance to the bilateral upper cervical ICA suggesting fibromuscular dysplasia. No associated stenosis, dissection, or pseudoaneurysm. 3. Moderate cervical spondylosis. ATTESTATION STATEMENT: The staff radiologist has personally reviewed the images and dictated, reviewed and/or edited the resident's report. READING SITE: [facility] Narrative 10/01/2022 12:58 PM KEY ACCOUNT DIRECTOR Patient: DONNELL DIEHL Sex#: F #: 1945 Raj#: [id number] Location: [address] [id number] Ordering Provider: CARMENCITA ESCUDERO Procedure Requested: [id number] CT ANGIO NECK Reason for Exam: stroke Exam Ordered: 10/01/2022 1052 Begin exam date/time: 10/01/2022 1104 Exam Date/Time: 10/01/[address] Angiogram of [...] Note Roldan Samayoa MD - 10/01/2022 Patient: DONNELL DIEHL Sex#: F #: 1945 Raj#: [id number] Location: [address] ICU [id number] Ordering Provider: CARMENCITA ESCUDERO Procedure Requested: [id number] CT ANGIO NECK Reason for Exam: stroke [...] and/or edited the resident's report. READING SITE: [facility] Carmencita Escudero MD [facility] CT ORDERABLES * CT Angio Head and Perfusion P (10/01/2022 11:05 AM KEY ACCOUNT DIRECTOR) Modality Anatomical Region Laterality Computed Tomography Head, Vascular Anatomical Location / Laterality Collection Method / Volume Ophelia ection Time Received Time Specimen (Source) 10/01/2022 11:04 AM KEY ACCOUNT DIRECTOR Impressions 10/01/2022 1:02 PM KEY ACCOUNT DIRECTOR Impression: 1. Small multiple acute to subacute [...] findings were also communicated to Dr. ZAIDA COLBY and Maureen Leiva RN by the conference and event organiser resident. ATTESTATION STATEMENT: The staff radiologist has personally reviewed the images and dictated, reviewed and/or edited the resident's report. READING SITE: [facility] Narrative 10/01/2022 1:02 PM KEY ACCOUNT DIRECTOR Patient: DONNELL DIEHL Sex#: F #: 1945 Raj#: [id number] Location: [address] ICU [id number] Ordering Provider: ZAIDA COLBY Procedure Requested: [id number] CT ANGIO HEAD AND PERFUSION P Reason [...] Note Roldan Samayoa MD - 10/01/2022 Patient: DONNELL DIEHL Sex#: F #: 1945 Raj#: [id number] Location: [address] [id number] Ordering Provider: ZAIDA COLBY Procedure Requested: [id number] CT ANGIO HEAD AND PERFUSION P Reason [...] Omnipaque 350. The images were sent to [employer] and mean transit time (MTT), cerebral blood [...] findings were also communicated to Dr. ZAIDA COLBY and Maureen Leiva RN by the conference and event organiser resident. ATTESTATION STATEMENT: The staff radiologist has personally reviewed the images and dictated, reviewed and/or edited the resident's report. READING SITE: [facility] Zaida Colby MD IMG CT ORDERABLES * Stroke CT Head wo contrast (10/01/2022 11:03 AM KEY ACCOUNT DIRECTOR) Modality Anatomical Region Laterality Computed Tomography Head Anatomical Location / Laterality Collection Method / Volume Ophelia ection Time Received Time Specimen (Source) 10/01/2022 10:56 AM KEY ACCOUNT DIRECTOR Impressions 10/01/2022 12:54 PM KEY ACCOUNT DIRECTOR 1. Numerous small cortical infarcts bilaterally, suggestive of embolic etiology. 2. No acute hemorrhage or mass effect. 3. Mild cerebral volume loss. Mild chr onic small vessel ischemic disease. The above findings were communicated by telephone to Dr. ZAIDA COLBY at 10/01/2022 11:02 AM. ATTESTATION STATEMENT: The staff radiologist has personally reviewed the images and dictated, reviewed and/or edited the resident's report. READING SITE: [address] 10/01/2022 12:54 PM KEY ACCOUNT DIRECTOR Patient: DONNELL DIEHL Sex#: F #: 1945 Raj#: [id number] Location: [address] [id number] Ordering Provider: ZAIDA COLBY Procedure Requested: [id number] HEAD WO CONTRAST Reason for [...] Note Roldan Samayoa MD - 10/01/2022 Patient: DONNELL DIEHL Sex#: F #: 1945 Raj#: [id number] Location: [place] [address] Ordering Provider: ZAIDA COLBY Procedure Requested: [id number] HEAD WO CONTRAST Reason for [...] effect. 3. Mild cerebral volume loss. Mild saddle mechanic denilson small vessel ischemic disease. The above findings were communicated by telephone to Dr. ZAIDA COLBY at 10/01/2022 11:02 AM. ATTESTATION STATEMENT: The staff radiologist has personally reviewed the images and dictated, reviewed and/or edited the resident's report. READING SITE: [facility] Zaida Colby MD IMG CT ORDERABLES * (ABNORMAL) Hemoglobin A1C (10/01/2022 10:52 AM KEY ACCOUNT DIRECTOR) Pathologist Signature Component Value Ref Test Method Analysis Performed A t Range Time Hemoglobin A1C 5.9 (H) 4.0 - 10/02/2022 [facility] 5.6 % 4:07 PM KEY ACCOUNT DIRECTOR Comment: Non-diabetic : 4.0-5.6% Prediabetes : 5.7-6.4% Diabetes : >= 6.5% Anatomical Location / Laterality Collection Method / Volume Ophelia ection Time Received Time Specimen (Source) Venipuncture / Unknown 10/01/2022 10:52 AM KEY ACCOUNT DIRECTOR 0 10/01/2022 10:56 AM KEY ACCOUNT DIRECTOR Blood (Venous) Andrés Ewing RN LAB BLOOD ORDERABLES [facility] City/State/ZIP Code Phone Number [place] [address] * Thyroid Stimulating Hormone (10/01/2022 10:52 AM KEY ACCOUNT DIRECTOR) Pathologist Signature Component Value Ref Test Method Analysis Performed A t Range Time Thyroid Stimulating 4.20 0.55 - 10/01/2022 [facility] Hormone 4.78 11:30 AM uIU/mL KEY ACCOUNT DIRECTOR Anatomical Location / Laterality Collection Method / Volume Ophelia ection Time Received Time Specimen (Source) Venipuncture / Unknown 10/01/2022 10:52 AM KEY ACCOUNT DIRECTOR 0 10/01/2022 10:56 AM KEY ACCOUNT DIRECTOR Blood (Venous) Carmencita Escudero MD LAB BLOOD ORDERABLES [facility]/ZIP Code Phone Number [place]forming [place] [address] * (ABNORMAL) Complete Blood Count (10/01/2022 10:52 AM KEY ACCOUNT DIRECTOR) Pathologist Signature Component Value Ref Test Method Analysis Performed A t Range Time WBC 16.40 (H) 4.00 - 10/01/2022 [facility] 11.00 11:03 AM TH/uL KEY ACCOUNT DIRECTOR RBC 3.07 (L) 4.00 - 10/01/2022 [facility] 5.00 11:03 AM mil/uL KEY ACCOUNT DIRECTOR Hemoglobin 9.1 (L) 12.0 - 10/01/2022 [facility] 15.0 11:03 AM g/dL KEY ACCOUNT DIRECTOR Hematocrit 29 (L) 36 - 45 10/01/2022 [facility] % 11:03 AM KEY ACCOUNT DIRECTOR MCV 94 80 - 99 10/01/2022 [facility] fL 11:03 AM KEY ACCOUNT DIRECTOR MCH 30 27 - 34 10/01/2022 [facility] pg 11:03 AM KEY ACCOUNT DIRECTOR MCHC 32 32 - 36 10/01/2022 [facility] g/dL 11:03 AM KEY ACCOUNT DIRECTOR RDW 14.3 9.0 - 10/01/2022 [facility] 14.5 % 11:03 AM KEY ACCOUNT DIRECTOR Platelet Count 332 140 - 10/01/2022 [facility] 400 11:03 AM Th/uL KEY ACCOUNT DIRECTOR MPV 10.0 9.4 - 10/01/2022 [facility] 12.3 fL 11:03 AM KEY ACCOUNT DIRECTOR Nucleated RBCs 0 0 - 0 10/01/2022 [facility] /100 WBC 11:03 AM KEY ACCOUNT DIRECTOR Anatomical Location / Laterality Collection Method / Volume Ophelia ection Time Received Time Specimen (Source) Venipuncture / Unknown 10/01/2022 10:52 AM KEY ACCOUNT DIRECTOR 0 10/01/2022 10:56 AM KEY ACCOUNT DIRECTOR Blood (Venous) Carmencita Escudero MD LAB BLOOD ORDERABLES City/State/ZIP Code Phone Number Performing [place] [address] [place] [address] * (ABNORMAL) Comprehensive Metabolic Panel (10/01/2022 10:52 AM KEY ACCOUNT DIRECTOR) Pathologist Signature Component Value Ref Test Method Analysis Performed A t Range Time Sodium 138 136 - 10/01/2022 [facility] 145 11:30 AM mEq/L KEY ACCOUNT DIRECTOR Potassium 5.4 (H) 3.4 - 10/01/2022 [facility] 5.1 11:30 AM mEq/L KEY ACCOUNT DIRECTOR Chloride 105 98 - 109 10/01/2022 [facility] mEq/L 11:30 AM KEY ACCOUNT DIRECTOR Comment: Reference interval updated 10/14/2021. Carbon Dioxide 23 20 - 31 10/01/2022 [facility] mEq/L 11:30 AM KEY ACCOUNT DIRECTOR Anion Gap 10 <17 10/01/2022 [facility] mmol/L 11:30 AM KEY ACCOUNT DIRECTOR Comment: Reference interval updated 02/18/22. Calcium 8.8 8.3 - 10/01/2022 [facility] 10.6 11:30 AM mg/dL KEY ACCOUNT DIRECTOR Glucose 155 (H) 70 - 100 10/01/2022 [facility] mg/dL 11:30 AM KEY ACCOUNT DIRECTOR Protein Total Serum 6.9 5.7 - 10/01/2022 [facility] 8.2 g/dL 11:30 AM KEY ACCOUNT DIRECTOR Albumin 4.2 3.5 - 10/01/2022 [facility] 5.0 g/dL 11:30 AM KEY ACCOUNT DIRECTOR Alkaline Phosphatase 146 44 - 150 10/01/2022 [facility] U/L 11:30 AM KEY ACCOUNT DIRECTOR Comment: Reference interval updated 10/29/2021. Alanine 131 (H) 0 - 34 10/01/2022 [facility] Aminotransferase U/L 11:30 AM KEY ACCOUNT DIRECTOR Aspartate 139 (H) 0 - 34 10/01/2022 [facility] Aminotransferase U/L 11:30 AM KEY ACCOUNT DIRECTOR Bilirubin Total 0.4 0.2 - 10/01/2022 [facility] 1.1 11:30 AM mg/dL KEY ACCOUNT DIRECTOR Blood Urea Nitrogen 31 (H) 9 - 23 10/01/2022 [facility] mg/dL 11:30 AM KEY ACCOUNT DIRECTOR Creatinine 1.86 (H) 0.55 - 10/01/2022 [facility] 1.02 11:30 AM mg/dL KEY ACCOUNT DIRECTOR eGFR 27.6 (L) 60.0 - 10/01/2022 [facility] 200.0 11:30 AM mL/min/1 KEY ACCOUNT DIRECTOR .73m*2 Comment: The National Kidney Foundation and the [place] [employer] of Neph[employer] (NKF-ASN) recommends using the [...] (Source) Venipuncture / Unknown 10/01/2022 10:52 AM KEY ACCOUNT DIRECTOR 0 10/01/2022 10:56 AM KEY ACCOUNT DIRECTOR Blood (Venous) Carmencita Escudero MD LAB BLOOD ORDERABLES City/State/ZIP Code Phone Number [place] [address] [place] [address] documented in this encounter Visit Diagnoses Diagnosis Acute ischemic stroke (HCC) - Primary Unspecified cerebral artery occlusion w ith cerebral infarction Acute ischemic stroke (HCC) Unspecified cerebral artery occlusion w ith cerebral infarction Acute hypoxemic respiratory failure (HC C) Restless leg syndrome Restless legs syndrome (RLS) Acute on chronic systolic congestive he art failure (HCC) Acute on chronic combined systolic and diastolic congestive heart failure (HCC) S/P TAVR (transcatheter aortic valve re placement) Acute renal insufficiency Unspecified disorder of kidney and uret er Acute hypoxemic respiratory failure (HC C) CHF (congestive heart failure) (HCC) Congestive heart failure, unspecified Pneumonia of both lungs due to infectio us organism Acute on chronic combined systolic and diastolic congestive heart failure (HCC) Type 2 diabetes mellitus without compli cation, without long-term current use of insulin (HCC) Constipation Unspecified constipation S/P TAVR (transcatheter aortic valve re placement) RLS (restless legs syndrome) Restless legs syndrome (RLS) Acute renal insufficiency Unspecified disorder of kidney and uret er documented in this encounter Admitting Diagnoses Diagnosis Acute ischemic stroke (HCC) Unspecified cerebral artery occlusion w ith cerebral infarction documented in this encounter Administered Medications Action Date Dose Rate Site Medication Order MAR Action acetaminophen (TYLENOL) suppository 325-650 mg 325-650 mg, Rectal, Every 6 hours PRN, mild pain (pain score 1-3), Starting on 10/01/22 at 1037, Administer if patient unable to tolerate oral medications. 10/07/2022 5:23 AM KEY ACCOUNT DIRECTOR 650 mg acetaminophen (TYLENOL) tablet 325-650 Given mg 325-650 mg, Oral, Every 6 hours PRN, mild pain (pain score 1-3), fever, Starting on 10/01/22 at 1037, Do not exceed 4 GM/DAY of acetaminophen. If 6 5 or older do not exceed 3 GM/DAY. If chronic alcoholic do not exceed 2 GM/DAY. 650 mg Given 10/03/2022 1:53 AM KEY ACCOUNT DIRECTOR aluminum-magnesium hydroxide-simethicon e (MAALOX PLUS) 400-400-40 mg/5 mL suspension 15 mL 15 mL, Oral, Every 4 hours PRN, indigestion, Starting on 10/01/22 at 1037, Avoid if estimated glomerular filtration rate (eGFR) is less than 20 mL/minute/1.73m2. 10/10/2022 8:22 AM KEY ACCOUNT DIRECTOR 5 mg apixaban (ELIQUIS) tablet 5 mg Given 5 mg, Oral, 2 times daily, First dose o n 10/08/22 at 2100 5 mg Given 10/09/2022 8:05 PM KEY ACCOUNT DIRECTOR 5 mg Given 10/09/2022 8:23 AM KEY ACCOUNT DIRECTOR 10/08/2022 8:35 AM KEY ACCOUNT DIRECTOR 81 mg aspirin chewable tablet 81 mg Given 81 mg, Oral, Daily, First dose on 10/01/22 at 1230 81 mg Given 10/07/2022 8:31 AM KEY ACCOUNT DIRECTOR 81 mg Given 10/06/2022 8:02 AM KEY ACCOUNT DIRECTOR 10/09/2022 8:05 PM KEY ACCOUNT DIRECTOR 10 mg atorvastatin (LIPITOR) tablet 10 mg Given 10 mg, Oral, Nightly, First dose on Mon10/01/22 at 2100 10 mg Given 10/08/2022 8:15 PM KEY ACCOUNT DIRECTOR 10 mg Given 10/07/2022 8:38 PM KEY ACCOUNT DIRECTOR 10/04/2022 3:33 PM KEY ACCOUNT DIRECTOR 20 mL barium (VARIBAR PUDDING) 10 mL Given 10 mL, Oral, Once in imaging, contrast, Starting on Mon10/04/22 at 1531, For 1 dose 10/04/2022 3:34 PM KEY ACCOUNT DIRECTOR 300 mL barium (VARIBAR) apple thin liquid 90 mL Given 90 mL, Oral, Once in imaging, contrast, Starting on Mon10/04/22 at 1531, For 1 dose 10/05/2022 6:01 PM KEY ACCOUNT DIRECTOR 5 mg bisacodyL (DULCOLAX) EC tablet 5 mg Given 5 mg, Oral, 2 times daily PRN, constipation, Starting on Mon10/05/22 a t 1721, DO NOT CRUSH OR CHEW. 10/05/2022 9:56 PM KEY ACCOUNT DIRECTOR 1 g cefepime (MAXIPIME) injection 1 g Given 1 g, Intravenous, Every 12 hours scheduled, Indications: PNEUMONIA (WITH PSEUDOMONAL RISK FACTORS), First dose o n 10/01/22 at 1215, For 10 doses, If giving IV push, reconstitute each vial with 10 ml sterile water and give over 3-5 minutes. If sterile water is unavailable, may use Bacteriostatic Water or Normal Saline for reconstitution 1 g Given 10/05/2022 8:35 AM KEY ACCOUNT DIRECTOR 1 g Given 10/04/2022 8:48 PM KEY ACCOUNT DIRECTOR 10/02/2022 11:48 AM KEY ACCOUNT DIRECTOR 75 mg clopidogreL (PLAVIX) tablet 75 mg Given 75 mg, Oral, Daily, First dose on 10/02/22 at 1100 dextrose 10% (D10W) bolus 125-250 mL 125-250 mL, Intravenous, at 500-1,000 mL/hr, As needed, low blood sugar, Starting on 10/01/22 at 1349, Give i f patient NPO and IV access already available. If no IV access give Glucago n SQ or IM in arm and turn patient on side. For blood glucose (BG): Less than 50 mg/dL: Give D10W 250 mL. Check BG every 15 minutes and repeat until greater than 80 mg/dL. Less than 70 mg/dL: Give D10W 125 mL. Check BG every 15 minutes and repeat until greater jey n 80 mg/dL. Less than 70 mg/dL and patient unconscious: Give D10W 250 mL. Call physician for additional orders. Check BG every 15 minutes and repeat until greater than 80 mg/dL. Once blood glucose greater than 80 mg/dL, check BG in one hour. Call physician if less than 70 mg/dL. dextrose 50% (D50W) syringe 25-50 mL 25-50 mL, Intravenous, As needed, low blood sugar, Starting on 10/01/22 at 1349, Give if patient NPO and IV access already available. If no IV access give Glucagon SQ or IM in arm and turn patient on side. For blood glucose (BG): Less than 50 mg/dL: Give D50W 5 0 mL. Check BG every 15 minutes and repea t until greater than 80 mg/dL. Less than 70 mg/dL: Give D50W 25 mL. Check BG every 15 minutes and repeat until greater than 80 mg/dL. Less than 70 mg/dL and patient unconscious: Give D50 W 50 mL. Call physician for additional orders. Check BG every 15 minutes and repeat until greater than 80 mg/dL. Once blood glucose greater than 80 mg/dL, check BG in one hour. Call physician if less than 70 mg/dL. dextrose 50% (D50W) syringe 50 mL 50 mL, Intravenous, As needed, low bloo d sugar, for glucose of 70 g/dL or less., Starting on 10/01/22 at 1043, Rechec k glucose POC 15 minutes after dextrose administration. 10/05/2022 6:01 PM KEY ACCOUNT DIRECTOR 100 mg docusate sodium (COLACE) capsule 100 mg Given 100 mg, Oral, 2 times daily PRN, stool softening, Starting on 10/01/22 at 1037, Swallow whole 10/10/2022 8:21 AM KEY ACCOUNT DIRECTOR 10 mg empagliflozin (JARDIANCE) tablet 10 mg Given 10 mg, Oral, Daily, First dose on 10/03/22 at 1015, Hold if patient is NPO or critically ill, Does the patient caleb t any criteria to HOLD this medication? N o 10 mg Given 10/09/2022 8:23 AM KEY ACCOUNT DIRECTOR 10 mg Given 10/08/2022 8:35 AM KEY ACCOUNT DIRECTOR 10/01/2022 4:09 PM KEY ACCOUNT DIRECTOR 40 mg furosemide (LASIX) injection 40 mg Given 40 mg, Intravenous, 2 times daily, Firs t dose on 10/01/22 at 1700 10/05/2022 12:37 PM KEY ACCOUNT DIRECTOR 40 mg furosemide (LASIX) injection 40 mg Given 40 mg, Intravenous, Once, On Mon 3 at 1200, For 1 dose, Give IV push at a rate of 40 mg/min. Max single IV push dose is 160 mg. Doses greater than 160 mg require IVPB. 10/09/2022 8:24 AM KEY ACCOUNT DIRECTOR 20 mg furosemide (LASIX) tablet 20 mg Given 20 mg, Oral, Daily, First dose on Magda 10/06/22 at 1215 20 mg Given 10/08/2022 8:35 AM KEY ACCOUNT DIRECTOR 20 mg Given 10/07/2022 8:31 AM KEY ACCOUNT DIRECTOR furosemide (LASIX) tablet 20 mg 20 mg, Oral, Daily, First dose (after last modification) on Mon10/11/22 at 0900 10/01/2022 9:08 PM KEY ACCOUNT DIRECTOR 5 mL gadobenate dimeglumine (MULTIHANCE) 529 Given mg/mL (0.1mmol/0.2mL) injection 10 mL 10 mL, Intravenous, Once in imaging, contrast, Starting on 10/01/22 at 2056, For 1 dose glucagon (GLUCAGEN) injection 1 mg 1 mg, Intramuscular, As needed, low blood sugar, low blood sugar, Starting on 10/01/22 at 1349, Give if patient NPO and no IV access. May give IM or SQ in arm and turn patient on side. Reconstitute powder for injection by adding 1 mL of iron worker foreman-supplied sterile diluent or sterile water for injection to a vial containing 1 unit o f the drug, to provide solutions containing 1 mg of glucagon/mL. Shake vial gently to dissolve. glucagon (GLUCAGEN) injection 1 mg 1 mg, Subcutaneous, As needed, low bloo d sugar, low blood sugar, Starting on 10/01/22 at 1349, Give if patient NPO an d no IV access. May give IM or SQ in arm and turn patient on side. Reconstitute powder for injection by adding 1 mL of iron worker foreman-supplied sterile diluent o r sterile water for injection to a vial containing 1 unit of the drug, to provide solutions containing 1 mg of glucagon/mL. Shake vial gently to dissolve. glucose chewable tablet 16-32 g 16-32 g, Oral, As needed, low blood sugar, Starting on 10/01/22 at 1349, Give food, drink, or glucose tablets to treat low blood glucose if patient able to eat. For blood glucose (BG): Less than 50 mg/dL: Give 30 g of carbohydrat e (32 g if using glucose tablets). Check BG every 15 minutes and repeat until greater than 80 mg/dL. Less than 70 mg/dL: Give 15 g of carbohydrate (16 g if using glucose tablets). Check BG every 15 minutes and repeat until greater than 80 mg/dL. Less than 70 mg/dL and patient unconscious: BG to be treated with D50W until greater than 80 mg/dL. Once BG greater than 80 mg/dL, give 30 g of carbohydrate (32 g if usin g glucose tablets) if patient awake and able to swallow. Once blood glucose greater than 80 mg/dL, check BG in one hour. Call physician if less than 70 mg/dL. 10/06/2022 5:30 PM KEY ACCOUNT DIRECTOR 1 suppository glycerin (adult) (SANI-SUPP) suppository Given 1 suppository 1 suppository, Rectal, Once, On Magda 10/06/22 at 1430, For 1 dose, RN to call pharmacy if needed 10/07/2022 8:31 AM KEY ACCOUNT DIRECTOR 1 suppository glycerin (adult) (SANI-SUPP) suppository Given 1 suppository 1 suppository, Rectal, Once, On Mon10/07/22 at 0830, For 1 dose, RN to call pharmacy if needed 10/08/2022 1:15 PM KEY ACCOUNT DIRECTOR 5,000 Units Right Lo wer Abdomen heparin (porcine) 5,000 unit/mL Given injection 5,000 Units 5,000 Units, Subcutaneous, Every 8 hours, First dose on 10/01/22 at 140 0 5,000 Units Left Lower Abdomen Given 10/08/2022 5:41 AM KEY ACCOUNT DIRECTOR 5,000 Units Left Lower Abdomen Given 10/07/2022 8:43 PM KEY ACCOUNT DIRECTOR 10/06/2022 8:01 AM KEY ACCOUNT DIRECTOR 1 Units Right Lo wer Abdomen insulin lispro (HumaLOG) injection 1-5 Given Units 1-5 Units, Subcutaneous, 4 times daily before meals and nightly, First dose on 10/01/22 at 1415, LEVEL 1 - Give in addition to scheduled mealtime insulin per table DO NOT GIVE for any 2 hours post meal fingerstick blood glucose checks. If pt NPO or on continuous enteral/parenteral nutrition - give wit h scheduled fingerstick blood glucose check - dose per table Glucose (mg/dL) Dose 0-120 0 units 121-150 0 units 151-200 0 units 201-250 1 unit 251-300 2 units 301-350 3 units 351-400 4 units >400 5 units Bedtime Admin Instructions ([facility] orders ONLY): If glucose level is less than 200, do not give any correction dose If glucose level is 200 or greater give correction dose according to sliding scale (see below) and check BG @ 0000 and 0300 LEVEL 1 - Bedtime Only Glucose (mg/dL) Dose 0-19 9 0 units 200-250 1 unit 251-300 2 units 301-350 3 units 351-400 4 units >400 5 units 10/01/2022 11:06 AM KEY ACCOUNT DIRECTOR 115 mL iohexoL (OMNIPAQUE) 350 mg iodine/mL Given injection 115 mL 115 mL, Intravenous, Once in imaging, contrast, Starting on 10/01/22 at 1106, For 1 dose 10/10/2022 8:21 AM KEY ACCOUNT DIRECTOR 10 mg loratadine (CLARITIN) tablet 10 mg Given 10 mg, Oral, Daily, First dose on Mon10/05/22 at 1745 10 mg Given 10/09/2022 8:23 AM KEY ACCOUNT DIRECTOR 10 mg Given 10/08/2022 8:35 AM KEY ACCOUNT DIRECTOR 10/08/2022 1:15 PM KEY ACCOUNT DIRECTOR 12.5 mg losartan (COZAAR) tablet 12.5 mg Given 12.5 mg, Oral, Daily, Indications: chronic heart failure, First dose on 10/08/22 at 1230 10/06/2022 2:59 PM KEY ACCOUNT DIRECTOR 30 mL magnesium hydroxide (MILK OF MAGNESIA) Given suspension 30 mL 30 mL, Oral, Once, On Magda 10/06/22 at 1430, For 1 dose 10/07/2022 4:13 PM KEY ACCOUNT DIRECTOR 30 mL magnesium hydroxide (MILK OF MAGNESIA) Given suspension 30 mL 30 mL, Oral, Daily PRN, constipation, Starting on Mon10/07/22 at 1111 magnesium sulfate IVPB 4 gram (premix) 4 g, Intravenous, at 25 mL/hr, As needed, aggressive electrolyte replacement, Starting on Mon10/01/22 at 1037, Replace in addition to any scheduled magnesium doses. Administer 4 grams over 4 hours for magnesium level less than or equal to 1.9 mg/dL. Repeat magnesium level in AM. Administer only if serum creatinine is less than 2 within the previous 48 hours and sustained urine output is greater than 20 mL/hr for 6 hours (if able to monitor). 10/10/2022 8:21 AM KEY ACCOUNT DIRECTOR 25 mg meclizine (ANTIVERT) tablet 25 mg Given 25 mg, Oral, 3 times daily, First dose on Mon10/04/22 at 0900 25 mg Given 10/09/2022 8:05 PM KEY ACCOUNT DIRECTOR 25 mg Given 10/09/2022 4:03 PM KEY ACCOUNT DIRECTOR 10/06/2022 8:02 AM KEY ACCOUNT DIRECTOR 12.5 mg metoprolol succinate (TOPROL-XL) 24 hr Given tablet 12.5 mg 12.5 mg, Oral, Daily, First dose on Mon10/05/22 at 1200, Hold if HR < 55 or SBP < 95. DO NOT CRUSH OR CHEW. 12.5 mg Given 10/05/2022 12:34 PM KEY ACCOUNT DIRECTOR 10/06/2022 9:58 AM KEY ACCOUNT DIRECTOR 12.5 mg metoprolol succinate (TOPROL-XL) 24 hr Given tablet 12.5 mg 12.5 mg, Oral, Once, On Mon10/06/22 at 0915, For 1 dose, Hold if HR < 55 or SB P <95. DO NOT CRUSH OR CHEW. 10/07/2022 8:31 AM KEY ACCOUNT DIRECTOR 25 mg metoprolol succinate (TOPROL-XL) 24 hr Given tablet 25 mg 25 mg, Oral, Daily, First dose (after last modification) on Mon10/07/22 at 0900, Hold if HR < 55 or SBP < 95. DO NOT CRUSH OR CHEW. 10/07/2022 3:59 PM KEY ACCOUNT DIRECTOR 25 mg metoprolol succinate (TOPROL-XL) 24 hr Given tablet 25 mg 25 mg, Oral, Once, On Mon10/07/22 at 1530, For 1 dose, DO NOT CRUSH OR CHEW. 10/10/2022 8:21 AM KEY ACCOUNT DIRECTOR 50 mg metoprolol succinate (TOPROL-XL) 24 hr Given tablet 50 mg 50 mg, Oral, Daily, First dose (after last modification) on 10/08/22 at 0900, Hold if HR < 55 or SBP < 95. DO NOT CRUSH OR CHEW. 50 mg Given 10/09/2022 8:23 AM KEY ACCOUNT DIRECTOR 50 mg Given 10/08/2022 8:35 AM KEY ACCOUNT DIRECTOR miconazole nitrate (ALOE VESTA) 2 % ointment Topical, 3 times daily PRN, perineal or skin fold redness, Starting on 10/01/22 at 1037, Consult wound care if no improvement within 3 days. nitroglycerin (NITROSTAT) SL tablet 0.4 mg 0.4 mg, Sublingual, Every 5 min PRN, chest pain, Starting on 10/01/22 at 1037, For 3 doses, May repeat every 5 minutes for a total of 3 doses. Check B P prior to each dose. Discontinue use for SBP less than 90 mmHg. Notify physicia n if given. DO NOT CRUSH OR CHEW. 10/02/2022 10:48 PM KEY ACCOUNT DIRECTOR 0.01 mcg/kg/min 2.12 mL/hr NORepinephrine (LEVOPHED) 4000 mcg in Rate/Dose dextrose (D5W) 5% 250 mL infusion Change 0.01-0.5 mcg/kg/min 56.6 kg (2.1225-106.125 mL/hr, rounded to 2.12-106.13 mL/hr), Intravenous, Continuous, Starting on Mon10/02/22 at 0100, Begin infusion at 0.01 mcg/kg/min and titrate by 0.01 mcg/kg/min every minute to maintain {MAP of 60. Infusion not to exceed 3 mcg/kg/min. Please notify the provider when the rising infusion rate reaches 1.0 mcg/kg/min or meets the maximum ordered rate. 0.02 mcg/kg/min 4.25 mL/hr Rate/Dose Change 10/02/2022 8:42 PM KEY ACCOUNT DIRECTOR 0.03 mcg/kg/min 6.37 mL/hr Rate/Dose Change 10/02/2022 11:01 AM KEY ACCOUNT DIRECTOR ondansetron (ZOFRAN) 4 mg/2 mL injectio n Starting on Mon10/04/22 at 0614, For 1 dose, Adry Jefferson: cabinet override 10/06/2022 9:18 PM KEY ACCOUNT DIRECTOR 4 mg ondansetron (ZOFRAN) injection 4 mg Given 4 mg, Intravenous, Every 6 hours PRN, nausea, vomiting, Starting on Mon10/04/22 at 0616 4 mg Given 10/06/2022 1:04 AM KEY ACCOUNT DIRECTOR 4 mg Given 10/04/2022 6:21 AM KEY ACCOUNT DIRECTOR 10/10/2022 8:21 AM KEY ACCOUNT DIRECTOR 40 mg pantoprazole (PROTONIX) EC tablet 40 mg Given 40 mg, Oral, Daily before breakfast, First dose on Mon10/03/22 at 0730, DO NOT CRUSH OR CHEW. 40 mg Given 10/09/2022 6:48 AM KEY ACCOUNT DIRECTOR 40 mg Given 10/08/2022 5:41 AM KEY ACCOUNT DIRECTOR 10/01/2022 3:58 PM KEY ACCOUNT DIRECTOR 2 mL perflutren lipid microspheres (DEFINITY) Given 2 mL/sodium chloride 0.9% 8 ml (10 ml total) 1-10 mL, Intravenous, Once in imaging, contrast, Starting on 10/01/22 at 1557, For 1 dose 10/06/2022 8:01 AM KEY ACCOUNT DIRECTOR 17 g polyethylene glycol (GLYCOLAX) packet 17 Given g 17 g, Oral, Daily, First dose (after last modification) on Mon10/04/22 at 0900 17 g Given 10/05/2022 8:36 AM KEY ACCOUNT DIRECTOR 17 g Given 10/04/2022 9:19 AM KEY ACCOUNT DIRECTOR 10/07/2022 8:38 PM KEY ACCOUNT DIRECTOR 17 g polyethylene glycol (GLYCOLAX) packet 17 Given g 17 g, Oral, 2 times daily, First dose o n 10/05/22 at 2100 17 g Given 10/07/2022 8:30 AM KEY ACCOUNT DIRECTOR 17 g Given 10/06/2022 9:04 PM KEY ACCOUNT DIRECTOR polyethylene glycol (GLYCOLAX) packet 1 7 g 17 g, Oral, Daily PRN, constipation, Starting on Mon10/09/22 at 0800 potassium bicarb-citric acid (EFFER-K) effervescent tablet 20 mEq 20 mEq, Oral, As needed, aggressive electrolyte replacement, Starting on 10/01/22 at 1037, Administer if unable t o swallow potassium tablets. Replace in addition to any scheduled potassium doses. Administer 20 mEq once for potassium level 3.6 to 3.9 mg/dL. Repea t potassium level in AM. Administer 20 mE q every hour x 2 doses (total dose = 40 mEq) for potassium level 3.1 to 3.5 mg/dL. Repeat potassium level in AM. Administer 20 mEq every hour x 3 doses (total dose = 60 mEq) for potassium level less than or equal to 3.0. Repeat potassium level 4 hours after last oral dose administered. Administer only if serum creatinine is less than 2 within the previous 48 hours and sustained urine output is greater than 20 mL/hr for 6 hours (if able to monitor). Completely dissolve tablet in 3 to 4 ounces (90-120 mL) of cold juice or water before administering. For fluid restricted patients, a smaller volume may be used to dilute (e.g. 15-30 mL). 10/04/2022 5:51 AM KEY ACCOUNT DIRECTOR 20 mEq potassium chloride (KLOR-CON) CR tablet Given 20 mEq 20 mEq, Oral, As needed, aggressive electrolyte replacement, Starting on 10/01/22 at 1037, Replace in addition to any scheduled potassium doses. Administer 20 mEq once for potassium level 3.6 to 3.9 mg/dL. Repeat potassiu m level in AM. Administer 20 mEq every hour x 2 doses (total dose = 40 mEq) fo r potassium level 3.1 to 3.5 mg/dL. Repea t potassium level in AM. Administer 20 mE q every hour x 3 doses (total dose = 60 mEq) for potassium level less than or equal to 3.0. Repeat potassium level 4 hours after last oral dose administered . Administer only if serum creatinine is less than 2 within the previous 48 hour s and sustained urine output is greater than 20 mL/hr for 6 hours (if able to monitor). DO NOT CRUSH OR CHEW. potassium chloride 20 mEq in 100 mL IVP B 20 mEq, Intravenous, Administer over 2 Hours, As needed, aggressive electrolyt e replacement, Starting on 10/01/22 at 1037, Administer if unable to take oral potassium. Replace in addition to any scheduled potassium doses. Administer 20 mEq once for potassium level 3.6 to 3.9 mg/dL. Repeat potassium level in AM . Administer 20 mEq x 2 doses (total dose = 40 mEq) for potassium level 3.1 to 3. 5 mg/dL. Repeat potassium level 2 hours after last infusion complete. Administer 20 mEq x 3 doses (total dose = 60 mEq) for potassium level less than or equal to 3.0. Repeat potassium level 2 hours after last infusion complete. Administer only if serum creatinine is less than 2 within the previous 48 hour s and sustained urine output is greater than 20 mL/hr for 6 hours (if able to monitor). Potassium chloride should be infused at a rate of 10 mEq/hr through a peripheral line, or at a rate of 20 mEq/hr through a central line while on telemetry. 10/09/2022 8:05 PM KEY ACCOUNT DIRECTOR 1 mg pramipexole (MIRAPEX) tablet 1 mg Given 1 mg, Oral, Daily, First dose on 10/01/22 at 2030 1 mg Given 10/08/2022 8:15 PM KEY ACCOUNT DIRECTOR 1 mg Given 10/07/2022 8:38 PM KEY ACCOUNT DIRECTOR 10/06/2022 8:02 AM KEY ACCOUNT DIRECTOR 1 tablet senna-docusate (PERICOLACE) 8.6-50 mg 1 Given tablet 1 tablet, Oral, Daily, First dose (afte r last modification) on Mon10/04/22 at 0900 1 tablet Given 10/05/2022 8:35 AM KEY ACCOUNT DIRECTOR 1 tablet Given 10/04/2022 9:19 AM KEY ACCOUNT DIRECTOR 10/08/2022 8:34 AM KEY ACCOUNT DIRECTOR 2 tablets senna-docusate (PERICOLACE) 8.6-50 mg 2 Given tablet 2 tablet, Oral, 2 times daily, First dose (after last modification) on Magda 10/06/22 at 2100 2 tablets Given 10/07/2022 8:38 PM KEY ACCOUNT DIRECTOR 2 tablets Given 10/07/2022 8:30 AM KEY ACCOUNT DIRECTOR senna-docusate (PERICOLACE) 8.6-50 mg 2 tablet 2 tablet, Oral, 2 times daily PRN, constipation, Starting on 10/09/22 a t 0800 10/10/2022 8:21 AM KEY ACCOUNT DIRECTOR 12.5 mg spironolactone (ALDACTONE) tablet 12.5 Given mg 12.5 mg, Oral, Daily, First dose on Mon10/07/22 at 1545 12.5 mg Given 10/09/2022 8:24 AM KEY ACCOUNT DIRECTOR 12.5 mg Given 10/08/2022 8:35 AM KEY ACCOUNT DIRECTOR 10/02/2022 9:34 PM KEY ACCOUNT DIRECTOR sterile water irrigation irrigation Given solution Starting on 10/02/22 at 2126, For 1 dose, Kat Beltran R: cabinet override 10/01/2022 12:54 PM KEY ACCOUNT DIRECTOR 1,000 mg 250 mL/hr vancomycin (VANCOCIN) IVPB 1000 mg in New Bag 250 mL NS 1,000 mg, Intravenous, at 250 mL/hr, Once, Indications: HAP/VAP, On 10/01/22 at 1300, For 1 dose, REFRIGERATE documented in this encounter Active and Recently Administered Medications Times are shown in KEY ACCOUNT DIRECTOR. 10/09/2022 10/10/2022 Medication Order 10/08/2022 08 (Given - Provider: Miranda Carey , ROWAN)2004 (Given - Provider: Lillie Bone RN) 08 (Given - Provider: Grace moon, RN) apixaban (ELIQUIS) tablet 5 mg 2014 (Given - 5 mg, Oral, 2 times daily, First dose on Provider: Aly elias 10/08/22 at 2100 [facility] Indira RN) aspirin chewable tablet 81 mg (CANCELED) 08 (Given - 81 mg, Oral, Daily, First dose on Sat Provider: Rogerio Abarca 10/01/22 at 1230 ROWAN Carey) 2004 (Given - Provider: Lillie Bone RN) atorvastatin (LIPITOR) tablet 10 mg 2014 (Given - 10 mg, Oral, Nightly, First dose on Sat Provider: Kel kim 10/01/22 at 2100 [facility] RN) 08 (Given - Provider: Miranda Carey RN) 08 (Given - Provider: Grace moon, RN) empagliflozin (JARDIANCE) tablet 10 mg 0835 (Given - 10 mg, Oral, Daily, First dose on Mon Provider: Rogerio Abarca 10/03/22 at 1015, Hold if patient is NPO ROWAN Carey) or critically ill, Does the patient caleb t any criteria to HOLD this medication? N o 0824 (Given - Provider: Miranda Carey RN) furosemide (LASIX) tablet 20 mg 0835 (Given - (CANCELED) Provider: Miranda Abarca 20 mg, Oral, Daily, First dose on Magda ROWAN Carey) 10/06/22 at 1215 furosemide (LASIX) tablet 20 mg 20 mg, Oral, Daily, First dose (after last modification) on Mon10/11/22 at 0900 heparin (porcine) 5,000 unit/mL 0541 (Given - injection 5,000 Units (CANCELED) Provider: Anahy 5,000 Units, Subcutaneous, Every 8 ROWAN Kumari)1315 hours, First dose on 10/01/22 at 1400 (Given - Pr ovider: Miranda Carey RN) 0823 (Given - Provider: Miranda Carey RN) 0821 (Given - Provider: Grace moon RN) loratadine (CLARITIN) tablet 10 mg 0835 (Given - 10 mg, Oral, Daily, First dose on Mon Provider: Rogerio Abarca 10/05/22 at 1745 ROWAN Carey) losartan (COZAAR) tablet 12.5 mg 1315 (Given - (CANCELED) Provider: Miranda Abarca 12.5 mg, Oral, Daily, Indications: ROWAN Carey) chronic heart failure, First dose on t 10/08/22 at 1230 0823 (Given - Provider: Miranda Carey RN)1603 (Given - Provider: Miranda Carey RN)2004 (Given - Provider: Lillie Bone RN) 0821 (Given - Provider: Grace moon, ROWAN) meclizine (ANTIVERT) tablet 25 mg 0844 (Given - 25 mg, Oral, 3 times daily, First dose Provider: Herb Abarca on Mon10/04/22 at 0900 ROWAN Carey)1642 (Given - Provider: Miranda Carey RN)2014 (Given - Provider: Amanda Jacobson RN) 0823 (Given - Provider: Miranda Carey RN) 0821 (Given - Provider: Grace moon RN) metoprolol succinate (TOPROL-XL) 24 hr 0835 (Given - tablet 50 mg Provider: Miranda Abarca 50 mg, Oral, Daily, First dose (after ROWAN Carey) last modification) on 10/08/22 at 0900, Hold if HR < 55 or SBP < 95. DO NOT CRUSH OR CHEW. 0648 (Given - Provider: Amanda Jacobson RN) 0821 (Given - Provider: Grace moon, RN) pantoprazole (PROTONIX) EC tablet 40 mg 0541 (Given - 40 mg, Oral, Daily before breakfast, Provider: Champ wilkins First dose on 10/03/22 at 0730, DO ROWAN Kumari) NOT CRUSH OR CHEW. 2004 (Given - Provider: Lillie Bone, ROWAN) pramipexole (MIRAPEX) tablet 1 mg 2014 (Given - 1 mg, Oral, Daily, First dose on Sat Provider: Jonelle menendez 10/01/22 at 2030 Song Jacobson RN) senna-docusate (PERICOLACE) 8.6-50 mg 2 0834 (Given - tablet (CANCELED) Provider: Miranda Abarca 2 tablet, Oral, 2 times daily, First ROWAN Carey)2100 (Not dose (after last modification) on Magda Given - Provid er: 10/06/22 at 2100 Amanda Jacobson RN - Reason: Patient/family refused) 0824 (Given - Provider: Miranda Carey RN) 0821 (Given - Provider: Grace moon, RN) spironolactone (ALDACTONE) tablet 12.5 0835 (Given - mg Provider: Miranda Abarca 12.5 mg, Oral, Daily, First dose on Mon ROWAN Carey) 10/07/22 at 1545 10/09/2022 10/10/2022 Medication Order 10/08/2022 acetaminophen (TYLENOL) suppository 325-650 mg(Linked Group 1) 325-650 mg, Rectal, Every 6 hours PRN, mild pain (pain score 1-3), Starting on 10/01/22 at 1037, Administer if patient unable to tolerate oral medications. acetaminophen (TYLENOL) tablet 325-650 mg(Linked Group 1) 325-650 mg, Oral, Every 6 hours PRN, mild pain (pain score 1-3), fever, Starting on 10/01/22 at 1037, Do not exceed 4 GM/DAY of acetaminophen. If 6 5 or older do not exceed 3 GM/DAY. If chronic alcoholic do not exceed 2 GM/DAY. aluminum-magnesium hydroxide-simethicon e (MAALOX PLUS) 400-400-40 mg/5 mL suspension 15 mL 15 mL, Oral, Every 4 hours PRN, indigestion, Starting on 10/01/22 at 1037, Avoid if estimated glomerular filtration rate (eGFR) is less than 20 mL/minute/1.73m2. bisacodyL (DULCOLAX) EC tablet 5 mg 5 mg, Oral, 2 times daily PRN, constipation, Starting on 10/05/22 a t 1721, DO NOT CRUSH OR CHEW. dextrose 10% (D10W) bolus 125-250 mL(Linked Group 2) 125-250 mL, Intravenous, at 500-1,000 mL/hr, As needed, low blood sugar, Starting on 10/01/22 at 1349, Give i f patient NPO and IV access already available. If no IV access give Glucago n SQ or IM in arm and turn patient on side. For blood glucose (BG): Less than 50 mg/dL: Give D10W 250 mL. Check BG every 15 minutes and repeat until greater than 80 mg/dL. Less than 70 mg/dL: Give D10W 125 mL. Check BG every 15 minutes and repeat until greater jey n 80 mg/dL. Less than 70 mg/dL and patient unconscious: Give D10W 250 mL. Call physician for additional orders. Check BG every 15 minutes and repeat until greater than 80 mg/dL. Once blood glucose greater than 80 mg/dL, check BG in one hour. Call physician if less than 70 mg/dL. dextrose 50% (D50W) syringe 25-50 mL(Linked Group 2) 25-50 mL, Intravenous, As needed, low blood sugar, Starting on 10/01/22 at 1349, Give if patient NPO and IV access already available. If no IV access give Glucagon SQ or IM in arm and turn patient on side. For blood glucose (BG): Less than 50 mg/dL: Give D50W 5 0 mL. Check BG every 15 minutes and repea t until greater than 80 mg/dL. Less than 70 mg/dL: Give D50W 25 mL. Check BG every 15 minutes and repeat until greater than 80 mg/dL. Less than 70 mg/dL and patient unconscious: Give D50 W 50 mL. Call physician for additional orders. Check BG every 15 minutes and repeat until greater than 80 mg/dL. Once blood glucose greater than 80 mg/dL, check BG in one hour. Call physician if less than 70 mg/dL. dextrose 50% (D50W) syringe 50 mL 50 mL, Intravenous, As needed, low bloo d sugar, for glucose of 70 g/dL or less., Starting on 10/01/22 at 1043, Rechec k glucose POC 15 minutes after dextrose administration. glucagon (GLUCAGEN) injection 1 mg(Linked Group 3) 1 mg, Intramuscular, As needed, low blood sugar, low blood sugar, Starting on 10/01/22 at 1349, Give if patient NPO and no IV access. May give IM or SQ in arm and turn patient on side. Reconstitute powder for injection by adding 1 mL of iron worker foreman-supplied sterile diluent or sterile water for injection to a vial containing 1 unit o f the drug, to provide solutions containing 1 mg of glucagon/mL. Shake vial gently to dissolve. glucagon (GLUCAGEN) injection 1 mg(Linked Group 3) 1 mg, Subcutaneous, As needed, low bloo d sugar, low blood sugar, Starting on 10/01/22 at 1349, Give if patient NPO an d no IV access. May give IM or SQ in arm and turn patient on side. Reconstitute powder for injection by adding 1 mL of iron worker foreman-supplied sterile diluent o r sterile water for injection to a vial containing 1 unit of the drug, to provide solutions containing 1 mg of glucagon/mL. Shake vial gently to dissolve. glucose chewable tablet 16-32 g 16-32 g, Oral, As needed, low blood sugar, Starting on 10/01/22 at 1349, Give food, drink, or glucose tablets to treat low blood glucose if patient able to eat. For blood glucose (BG): Less than 50 mg/dL: Give 30 g of carbohydrat e (32 g if using glucose tablets). Check BG every 15 minutes and repeat until greater than 80 mg/dL. Less than 70 mg/dL: Give 15 g of carbohydrate (16 g if using glucose tablets). Check BG every 15 minutes and repeat until greater than 80 mg/dL. Less than 70 mg/dL and patient unconscious: BG to be treated with D50W until greater than 80 mg/dL. Once BG greater than 80 mg/dL, give 30 g of carbohydrate (32 g if usin g glucose tablets) if patient awake and able to swallow. Once blood glucose greater than 80 mg/dL, check BG in one hour. Call physician if less than 70 mg/dL. magnesium hydroxide (MILK OF MAGNESIA) suspension 30 mL 30 mL, Oral, Daily PRN, constipation, Starting on Mon10/07/22 at 1111 magnesium sulfate IVPB 4 gram (premix) 4 g, Intravenous, at 25 mL/hr, As needed, aggressive electrolyte replacement, Starting on 10/01/22 at 1037, Replace in addition to any scheduled magnesium doses. Administer 4 grams over 4 hours for magnesium level less than or equal to 1.9 mg/dL. Repeat magnesium level in AM. Administer only if serum creatinine is less than 2 within the previous 48 hours and sustained urine output is greater than 20 mL/hr for 6 hours (if able to monitor). miconazole nitrate (ALOE VESTA) 2 % ointment Topical, 3 times daily PRN, perineal or skin fold redness, Starting on 10/01/22 at 1037, Consult wound care if no improvement within 3 days. nitroglycerin (NITROSTAT) SL tablet 0.4 mg 0.4 mg, Sublingual, Every 5 min PRN, chest pain, Starting on 10/01/22 at 1037, For 3 doses, May repeat every 5 minutes for a total of 3 doses. Check B P prior to each dose. Discontinue use for SBP less than 90 mmHg. Notify physicia n if given. DO NOT CRUSH OR CHEW. ondansetron (ZOFRAN) injection 4 mg 4 mg, Intravenous, Every 6 hours PRN, nausea, vomiting, Starting on 10/04/22 at 0616 polyethylene glycol (GLYCOLAX) packet 1 7 g 17 g, Oral, Daily PRN, constipation, Starting on 10/09/22 at 0800 potassium bicarb-citric acid (EFFER-K) effervescent tablet 20 mEq(Linked Group 4) 20 mEq, Oral, As needed, aggressive electrolyte replacement, Starting on Sa t 10/01/22 at 1037, Administer if unable t o swallow potassium tablets. Replace in addition to any scheduled potassium doses. Administer 20 mEq once for potassium level 3.6 to 3.9 mg/dL. Repea t potassium level in AM. Administer 20 mE q every hour x 2 doses (total dose = 40 mEq) for potassium level 3.1 to 3.5 mg/dL. Repeat potassium level in AM. Administer 20 mEq every hour x 3 doses (total dose = 60 mEq) for potassium level less than or equal to 3.0. Repeat potassium level 4 hours after last oral dose administered. Administer only if serum creatinine is less than 2 within the previous 48 hours and sustained urine output is greater than 20 mL/hr for 6 hours (if able to monitor). Completely dissolve tablet in 3 to 4 ounces (90-120 mL) of cold juice or water before administering. For fluid restricted patients, a smaller volume may be used to dilute (e.g. 15-30 mL). potassium chloride (KLOR-CON) CR tablet 20 mEq(Linked Group 4) 20 mEq, Oral, As needed, aggressive electrolyte replacement, Starting on Sa t 10/01/22 at 1037, Replace in addition to any scheduled potassium doses. Administer 20 mEq once for potassium level 3.6 to 3.9 mg/dL. Repeat potassiu m level in AM. Administer 20 mEq every hour x 2 doses (total dose = 40 mEq) fo r potassium level 3.1 to 3.5 mg/dL. Repea t potassium level in AM. Administer 20 mE q every hour x 3 doses (total dose = 60 mEq) for potassium level less than or equal to 3.0. Repeat potassium level 4 hours after last oral dose administered . Administer only if serum creatinine is less than 2 within the previous 48 hour s and sustained urine output is greater than 20 mL/hr for 6 hours (if able to monitor). DO NOT CRUSH OR CHEW. potassium chloride 20 mEq in 100 mL IVPB(Linked Group 4) 20 mEq, Intravenous, Administer over 2 Hours, As needed, aggressive electrolyt e replacement, Starting on 10/01/22 at 1037, Administer if unable to take oral potassium. Replace in addition to any scheduled potassium doses. Administer 20 mEq once for potassium level 3.6 to 3.9 mg/dL. Repeat potassium level in AM . Administer 20 mEq x 2 doses (total dose = 40 mEq) for potassium level 3.1 to 3. 5 mg/dL. Repeat potassium level 2 hours after last infusion complete. Administer 20 mEq x 3 doses (total dose = 60 mEq) for potassium level less than or equal to 3.0. Repeat potassium level 2 hours after last infusion complete. Administer only if serum creatinine is less than 2 within the previous 48 hour s and sustained urine output is greater than 20 mL/hr for 6 hours (if able to monitor). Potassium chloride should be infused at a rate of 10 mEq/hr through a peripheral line, or at a rate of 20 mEq/hr through a central line while on telemetry. senna-docusate (PERICOLACE) 8.6-50 mg 2 tablet 2 tablet, Oral, 2 times daily PRN, constipation, Starting on 10/09/22 a t 0800 Order Group 1: acetaminophen (TYLENOL) tablet 325-650 mgJump to med 325-650 mg, Oral, Every 6 hours PRN, mi ld pain (pain score 1-3), fever, Starting on 10/01/22 at 1037
Do not exceed 4 GM/DAY of aceta minophen. If 65 or older do not exceed 3 GM/DAY. If chronic alcoholic do no t exceed 2 GM/DAY.
Or acetaminophen (TYLENOL) suppository 325 -650 mgJump to med 325-650 mg, Rectal, Every 6 hours PRN, mild pain (pain score 1-3), Starting on 10/01/22 at 1037
Administer if patient unable to tolerate oral medications.
Group 2: dextrose 50% (D50W) syringe 25-50 mLJum p to med 25-50 mL, Intravenous, As needed, low b lood sugar, Starting on 10/01/22 at 1349
Give if patient NPO and IV access already avail able. If no IV access give Glucagon SQ or IM in arm and turn patient on side. For blood g lucose (BG): Less than 50 mg/dL: Give D50W 50 mL. Check BG every 15 minutes and repeat un til greater than 80 mg/dL. Less than 70 mg/dL: Give D50W 25 mL. Check BG every 15 minutes a nd repeat until greater than 80 mg/dL. Less than 70 mg/dL and patient unconscious: Give D50 W 50 mL. Call physician for additional orders. Check BG every 15 minutes and repeat until greater jey n 80 mg/dL. Once blood glucose greater than 80 mg/dL, check BG in one hour. Call physi karlie if less than 70 mg/dL.
Or dextrose 10% (D10W) bolus 125-250 mLJum p to med 125-250 mL, Intravenous, at 500-1,000 m L/hr, As needed, low blood sugar, Starting on 10/01/22 at 1349
Give if patient NPO and IV acce ss already available. If no IV access give Glucagon SQ or IM in arm and turn patient on side. & nbsp;For blood glucose (BG): Less than 50 mg/dL: Give D10W 250 mL. Check BG every 15 min utes and repeat until greater than 80 mg/dL. Less than 70 mg/dL: Give D10W 125 mL. Check BG ev mellisa 15 minutes and repeat until greater than 80 mg/dL. Less than 70 mg/dL and patient un conscious: Give D10W 250 mL. Call physician for additional orders. Check BG every 15 minutes and r epeat until greater than 80 mg/dL. Once blood glucose greater than 80 mg/dL, check BG in one hour. Call physician if less than 70 mg/dL.
Group 3: glucagon (GLUCAGEN) injection 1 mgJump to med 1 mg, Intramuscular, As needed, low blo od sugar, low blood sugar, Starting on 10/01/22 at 1349
Give if patient NPO and no IV a ccess. May give IM or SQ in arm and turn patient on side. Reconstitute powder for inje ction by adding 1 mL of iron worker foreman- supplied sterile diluent or sterile water for injection to a via l containing 1 unit of the drug, to provide solutions containing 1 mg of glucagon/mL. Shake v ial gently to dissolve.
Or glucagon (GLUCAGEN) injection 1 mgJump to med 1 mg, Subcutaneous, As needed, low bloo d sugar, low blood sugar, Starting on 10/01/22 at 1349
Give if patient NPO and no IV a ccess. May give IM or SQ in arm and turn patient on side. Reconstitute powder for inje ction by adding 1 mL of iron worker foreman- supplied sterile diluent or sterile water for injection to a via l containing 1 unit of the drug, to provide solutions containing 1 mg of glucagon/mL. Shake v ial gently to dissolve.
Group 4: potassium chloride (KLOR-CON) CR tablet 20 mEqJump to med 20 mEq, Oral, As needed, aggressive cintia ctrolyte replacement, Starting on 10/01/22 at 1037
Replace in addition to any sche duled potassium doses. Administer 20 mEq once for potassium level 3.6 to 3.9 mg/dL. Repea t potassium level in AM. Administer 20 mEq every hour x 2 doses (total dose = 40 mEq) for potas sium level 3.1 to 3.5 mg/dL. Repeat potassium level in AM. Administer 20 mEq every ho ur x 3 doses (total dose = 60 mEq) for potassium level less than or equal to 3.0. Repeat potassium level 4 hours after last oral dose administered. Administer only if serum cr eatinine is less than 2 within the previous 48 hours and sustained urine output is greater than 20 mL/hr for 6 hours (if able to monitor). DO NOT CRUSH OR CHEW.
Or potassium bicarb-citric acid (EFFER-K) effervescent tablet 20 mEqJump to med 20 mEq, Oral, As needed, aggressive cintia ctrolyte replacement, Starting on 10/01/22 at 1037
Administer if unable to swallow potassium tablets. Replace in addition to any scheduled potassium doses. Administer 20 mEq once for potassium level 3.6 to 3.9 mg/dL. Repeat potassium level in AM. Administer 20 mEq every hour x 2 doses (total dose = 40 mEq) for potassium level 3.1 to 3.5 mg/dL. Repea t potassium level in AM. Administer 20 mEq every hour x 3 doses (total dose = 60 mEq) for potas sium level less than or equal to 3.0. Repeat potassium level 4 hours after last oral dose administer ed. Administer only if serum creatinine is less than 2 within the previous 48 hours and sustained urine output is greater than 20 mL/hr for 6 hours (if able to monitor). Completely d issolve tablet in 3 to 4 ounces (90-120 mL) of cold juice or water before administering. For fluid r estricted patients, a smaller volume may be used to dilute (e.g. 15-30 mL).
Or potassium chloride 20 mEq in 100 mL IVP BJump to med 20 mEq, Intravenous, Administer over 2 Hours, As needed, aggressive electrolyte replacement, Starting on 10/01/22 at 1037
Admi nister if unable to take oral potassium. Replace in addition to any scheduled potassium dos es. Administer 20 mEq once for potassium level 3.6 to 3.9 mg/dL. Repeat potassium level in AM. Administer 20 mEq x 2 doses (total dose = 40 mEq) for potassium level 3.1 to 3.5 mg/dL. R epeat potassium level 2 hours after last infusion complete. Administer 20 mEq x 3 doses (tota l dose = 60 mEq) for potassium level less than or equal to 3.0. Repeat potassium level 2 hours aft er last infusion complete. Administer only if serum creatinine is less than 2 within the previous 48 hours and sustained urine output is greater than 20 mL/hr for 6 hours (if able to m onitor). Potassium chloride should be infused at a rate of 10 mEq/hr through a peripheral line, or at a rate of 20 mEq/hr through a central line while on telemetry.
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
[2022-10-10] MEDS ORDERED: polyethylene glycoL POWDER 17 GM (MIRALAX) PACK PO PRN (18:30)
[2022-10-10] MEDS ORDERED: NON-FORMULARY MEDICATION 1 EA EA (Acetaminophen (Tylenol) 650 MG) PO SCH (18:30)
--- NOTE | 2022-10-10 18:44 | PM&R Post Admission Assessment ---
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 She has left sided weakness, facial droop and has had difficulty with volume overload with pulmonary edema with hypotension caused by overdiuresis. She does have CKD but had PENG of creat 1.5 while inpatient. She is having less dysphagia and is currently on a regular diet. PLOF is listed as "quietly active" in her home and CLOF is sit to stand used and mod for bed mobility. Past Ncwzcqj-Hyfklm-Gfwzkm Hx Past Med/Social Hx: Reviewed Nursing Past Med/Soc Hx, Reviewed and Corrections made Patient Social History Marrital Status: single Employed/Student: retired Alcohol Use: Denies Use Smoking Status: Former Smoker Immunizations Up To Date Date of Influenza Vaccine: Jun 09, 2022 Past Medical History Surgeries: Valve Replacement Cardiac: Chronic Edema/Swelling, Hypertension, Valvular Heart Disease Gastrointestinal: Gastroesophageal Reflux Musculoskeletal: Arthritis Endocrine: Diabetes, Non-Insulin dep PM&R Allergy/Meds/Data Review Allergies Coded Allergies: Penicillins (Verified Allergy, Unknown, 10/10/22) atorvastatin (Verified Allergy, Unknown, 10/10/22) meperidine (Verified Allergy, Unknown, 10/10/22) morphine (Verified Allergy, Unknown, 10/10/22) tetracycline (Verified Allergy, Unknown, 10/10/22) Home Medications Scheduled Acetaminophen (Tylenol), 325-650 MG PO Q6H, (Reported) Apixaban (Eliquis), 5 MG PO BID, (Reported) Docusate Sodium (Docusate Sodium), 100 MG PO BID, (Reported) Duloxetine HCl (Duloxetine HCl), 30 MG PO HS, (Reported) Empagliflozin (Jardiance), 10 MG PO DAILY, (Reported) Furosemide (Furosemide), 20 MG PO DAILY, (Reported) Loratadine (Loratadine), 10 MG PO DAILY, (Reported) Meclizine HCl (Meclizine HCl), 25 MG PO TID, (Reported) Metoprolol Succinate (Metoprolol Succinate), 50 MG PO DAILY, (Reported) Pantoprazole Sodium (Pantoprazole Sodium), 40 MG PO DAILY, (Reported) Pramipexole Di-HCl (Mirapex), 1 MG PO HS, (Reported) Pravastatin Sodium (Pravastatin Sodium), 40 MG PO HS, (Reported) Spironolactone (Spironolactone), 12.5 MG PO DAILY, (Reported) Trazodone HCl (Trazodone HCl), 50 MG PO HS, (Reported) Scheduled PRN Polyethylene Glycol 3350 (Miralax), 17 GM PO DAILY PRN for CONSTIPATION-2ND LINE, (Reported) Current Medications Current Medications Reviewed Review of Systems Constitutional: see HPI, malaise, weakness EENTM: no symptoms reported Respiratory: dyspnea on exertion Cardiovascular: no symptoms reported Gastrointestinal: no symptoms reported Genitourinary: no symptoms reported Musculoskeletal: back pain, joint pain Skin: no symptoms reported Psychiatric/Neurological: Anxiety, Depressed All Other Systems Reviewed Negative Unless Noted: Yes Physical Exam Physical Exam Vital Signs Vital Signs - First Documented 10/10/22 16:00 Temp 36.2 Pulse 86 Resp 18 B/P (MAP) 96/54 (68) Pulse Ox 97 O2 Delivery Room Air Capillary Refill : Height, Weight, BMI Height: '" Weight: lbs. oz. kg; 21.68 BMI Method: General Appearance: No Apparent Distress, WD/WN, Chronically ill Eyes: Bilateral Eye Normal Inspection, Bilateral Eye PERRL HEENT: PERRL/EOMI, Normal ENT Inspection, Pharynx Normal Neck: Full Range of Motion, Normal Inspection, Non Tender, Supple, Carotid Bruit Respiratory: Chest Non Tender, Lungs Clear, Normal Breath Sounds, No Accessory Muscle Use, No Respiratory Distress, Decreased Breath Sounds Cardiovascular: Regular Rate, Rhythm, No Edema, No Gallop, No JVD, No Murmur, N ormal Peripheral Pulses Gastrointestinal: Normal Bowel Sounds, No Organomegaly, No Pulsatile Mass, Non Tender, Soft Back: Normal Inspection, No CVA Tenderness, No Vertebral Tenderness Extremity: Normal Capillary Refill, Normal Inspection, Normal Range of Motion, Non Tender, No Calf Tenderness, No Pedal Edema Neurologic/Psychiatric: Alert, Oriented x3, puncher and fastener II-XII Norm as Tested, Abnormal Gait, Depressed Affect, Motor Weakness (left sided weakness) Skin: Normal Color, Warm/Dry Lymphatic: No Adenopathy PM&R Medical Assessment & Plan REHAB/MEDICAL ASSESSMENT AND PLAN: REHAB IMPAIRMENT GROUP: CVA with left sided weakness ETIOLOGIC DIAGNOSIS: Acute embolic stroke The comorbidities that impact the patients function and/or functional outcome by: left sided weakness, minimal activity at home, volume overload tendency, recent TAVR, CKD, DM REHAB PLAN: The patient is being admitted to our comprehensive inpatient rehabilitation facility and can tolerate the intensity of service consisting of at least: 180 minutes of therapy a day, 5 out of 7 days a week Rehab treatment will consist of: PT OT will focus on regaining function with use of AD in order to regain function with fall risk prevention and help return to independence The patient/family has a good understanding of our discharge process and will benefit from an interdisciplinary inpatient rehabilitation program. The patient has potential to make improvement and is in need of at least two of the following multidisciplinary therapies including but not limited to physical, occupational, speech, and prosthetics and orthotics. Additionally the patient will need services from respiratory, nutritional services, wound care, psychology, etc. (Customize this to each patient). Given the patients complex condition and risk of further medical complications, rehabilitation services cannot be safely or effectively provided at a lower level of care such as a retirement facility. BARRIERS TO DISCHARGE: Left sided weakness ESTIMATED LOS: 14 days DISPOSITION: Home RELEVANT CHANGES SINCE PREADMISSION SCREENING: I have compared the patients medical and functional status at the time of the preadmission screening and there are: no changes PROGNOSIS: Fair to good REHABILITATION GOALS: 1. PT OT will focus on regaining function with use of AD in order to regain function with fall risk prevention and help return to independence All the above goals were reviewed with the patient and he/she is in agreement. By signing this document, I acknowledge that I have personally performed a full physical examination on this patient within 24 hours of admission to this inpatient rehabilitation facility and have determined the patient to be able to tolerate the above course of treatment at an intensive level for a reasonable period of time. I will be completing a detailed individualized Plan of Care for this patient by day #4 of the patients stay based upon the Preadmission Screen, the Post-Admission Evaluation, and the therapy evaluations. Admission Dx/Comorbidities: (1) CVA (cerebral vascular accident) ICD Codes: I63.9 - Cerebral infarction, unspecified Assessment/Plan Assessment and Plan Assess & Plan/Chief Complaint Assessment: 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 Recent TAVR 09/22/22 Pulmonary edema CKD with PENG Fall risk DM Depression GERD HTN Plan: OAC PT OT Cardiology consult Monitor kidney function JARRED COBOS DO Oct 10, 2022 18:44
[2022-10-10 20:40] VITALS: BP 96/54
[2022-10-10] MEDS ORDERED: NON-FORMULARY MEDICATION 1 EA EA (Pravastatin Sodium 40 MG) PO SCH (21:00)
[2022-10-10] MEDS ORDERED: DOCUSATE SODIUM 100 MG (COLACE) CAP PO SCH (21:00)
[2022-10-10] MEDS ORDERED: NON-FORMULARY MEDICATION 1 EA EA (Pramipexole Di-HCl (Mirapex) 1 MG) PO SCH (21:00)
[2022-10-10] MEDS: traZODone 50 MG (DESYREL) TAB PO SCH (21:22)
[2022-10-10] MEDS: PRAVASTATIN 20 MG TABLET PO SCH (21:22)
[2022-10-10] MEDS: DULoxetine 30 MG (CYMBALTA) CAP PO SCH (21:22)
[2022-10-10] MEDS: PRAMIPEXOLE 0.5 MG TAB (MIRAPEX) PO SCH (21:22)
[2022-10-10] MEDS: APIXABAN 5 MG (ELIQUIS) TABLET PO SCH (21:22)
[2022-10-10] MEDS: MECLIZINE 25 MG (ANTIVERT) TAB PO SCH (21:22)
[2022-10-10] MEDS: inSUlin ASPART (NovoLOG) 1 UNIT/0.01 ML (CHARGE PER UNIT) SC SCH (21:24)
[2022-10-10] MEDS: polyethylene glycoL POWDER 17 GM (MIRALAX) PACK PO SCH (21:31)
[2022-10-10] MEDS: SENNA W/DOCUSATE (SENOKOT S) TABLET PO SCH (21:31)
[2022-10-10] MEDS: DOCUSATE SODIUM 100 MG (COLACE) CAP PO SCH (21:31)
[2022-10-11] MEDS: ACETAMINOPHEN 325 MG TABLET PO SCH ×4 (00:15→16:32)
--- NOTE | 2022-10-11 05:26 | PM&R Progress Note ---
Subjective HPI/CC On Admission Date Seen by Provider: Oct 11, 2022 Time Seen by Provider: 09:00 Subjective/Events-last exam 10/11/2022: Much improved status BM+ No falls No pain reported Reviewed meds and labs Creatinine noted Cardiology consult Review of Systems General: Fatigue, Malaise Neurological: Weakness, Incoordination Objective Exam Vital Signs Vital Signs Date Time Temp Pulse Resp B/P (MAP) Pulse Ox O2 Delivery O2 Flow Rate FiO2 10/11/22 20:45 98 Room Air 10/11/22 20:06 36.6 98 16 97/58 (71) Capillary Refill : General Appearance: No Apparent Distress, WD/WN, Chronically ill HEENT: PERRL/EOMI, Normal ENT Inspection, Pharynx Normal Neck: Full Range of Motion, Normal Inspection, Non Tender, Supple, Carotid Bruit Respiratory: Chest Non Tender, Lungs Clear, Normal Breath Sounds, No Accessory Muscle Use, No Respiratory Distress, Decreased Breath Sounds Cardiovascular: Regular Rate, Rhythm, No Edema, No Gallop, No JVD, No Murmur, Normal Peripheral Pulses Gastrointestinal: Normal Bowel Sounds, No Organomegaly, No Pulsatile Mass, Non Tender, Soft Back: Normal Inspection, No CVA Tenderness, No Vertebral Tenderness Extremity: Normal Capillary Refill, Normal Inspection, Normal Range of Motion, Non Tender, No Calf Tenderness, No Pedal Edema Neurologic/Psychiatric: Alert, Oriented x3, 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 FIM Transfers Therapy Code Descriptions/Definitions Functional Bath Measure: 0=Not Assessed/NA 4=Minimal Assistance 1=Total Assistance 5=Supervision or Setup 2=Maximal Assistance 6=Modified Bath 3=Moderate Assistance 7=Complete IndependenceSCALE: Activities may be completed with or without assistive devices. 4-Vmwkhgbvzt-sprsbzs completes the activity by him/herself with no assistance from a helper. 5-Set-up or Clean-up Assistance-helper sets up or cleans up; patient completes activity. Ranier assists only prior to or following the activity. 4-Supervision or Touching Assistance-helper provides verbal cues and/or touching/steadying and/or contact guard assistance as patient completes activity. Assistance may be provided throughout the activity or intermittently. 3-Partial/Moderate Assistance-helper does LESS THAN HALF the effort. Ranier lifts, holds or supports trunk or limbs, but provides less than half the effort. 2-Substantial/Maximal Assistance-helper does MORE THAN HALF the effort. Ranier lifts or holds trunk or limbs and provides more than half the effort. 7-Wxxsnmzsp-yxrbbi does ALL the effort. Patient does none of the effort to complete the activity. Or, the assistance of 2 or more helpers is required for the patient to complete the activity. If activity was not attempted, code reason: 7-Patient Refused. 9-Not Applicable-not attempted and the patient did not perform the activity before the current illness, exacerbation or injury. 10-Not Attempted due to Environmental Limitations-(lack of equipment, weather restraints, etc.). 88-Not Attempted due to Medical Conditions or Safety Concerns. Assessment/Plan Assessment and Plan Assess & Plan/Chief Complaint Assessment: 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 Recent TAVR 09/22/22 Pulmonary edema CKD with PENG Fall risk DM Depression GERD HTN Anemia of chronic illness Plan: OAC PT OT Cardiology consult Monitor kidney function 10/11/2022: Monitor creatinine closely Cardiology consult (1) CVA (cerebral vascular accident) JARRED COBOS DO Oct 11, 2022 05:26
[2022-10-11 05:53] LABS: BASOPHILS # (AUTO) 0.1 10^3/uL (0.0-0.1); BASOPHILS % (AUTO) 2 % (0-10); EOSINOPHILS # (AUTO) 0.6 10^3/uL (0.0-0.3); EOSINOPHILS % (AUTO) 8 % (0-10); HEMATOCRIT 29 % (35-52); HEMOGLOBIN 9.3 g/dL (11.5-16.0); LYMPHOCYTES # (AUTO) 2.1 10^3/uL (1.0-4.0); LYMPHOCYTES % (AUTO) 28 % (12-44); MEAN CORPUSCULAR HEMOGLOBIN 30 pg (25-34); MEAN CORPUSCULAR HGB CONC 32 g/dL (32-36); MEAN CORPUSCULAR VOLUME 94 fL (80-99); MEAN PLATELET VOLUME 10.5 fL (9.0-12.2); MONOCYTES # (AUTO) 0.6 10^3/uL (0.0-1.0); MONOCYTES % (AUTO) 8 % (0-12); NEUTROPHILS # (AUTO) 4.1 10^3/uL (1.8-7.8); NEUTROPHILS % (AUTO) 54 % (42-75); PLATELET COUNT 352 10^3/uL (130-400); WHITE BLOOD COUNT 7.7 10^3/uL (4.3-11.0)
[2022-10-11] MEDS: inSUlin ASPART (NovoLOG) 1 UNIT/0.01 ML (CHARGE PER UNIT) SC SCH ×4 (06:12→20:37)
[2022-10-11 06:14] LABS: ALBUMIN 3.6 GM/DL (3.2-4.5); BILIRUBIN,TOTAL 0.4 MG/DL (0.1-1.0); CALCIUM 9.4 MG/DL (8.5-10.1); CREATININE SERUM 1.35 MG/DL (0.60-1.30); POTASSIUM 4.1 MMOL/L (3.6-5.0); TOTAL PROTEIN 6.6 GM/DL (6.4-8.2)
[2022-10-11] MEDS: FUROSEMIDE 20 MG (LASIX) TAB PO SCH (07:56)
[2022-10-11] MEDS: MECLIZINE 25 MG (ANTIVERT) TAB PO SCH ×3 (07:56→20:38)
[2022-10-11] MEDS: DOCUSATE SODIUM 100 MG (COLACE) CAP PO SCH ×2 (07:56→20:38)
[2022-10-11] MEDS: PANTOPRAZOLE 40 MG (PROTONIX) TAB PO SCH (07:57)
[2022-10-11] MEDS: APIXABAN 5 MG (ELIQUIS) TABLET PO SCH ×2 (07:57→20:38)
[2022-10-11] MEDS: EMPAGLIFLOZIN 10 MG TABLET (JARDIANCE) PO SCH (07:57)
[2022-10-11] MEDS: LORATADINE (CLARITIN) 10 MG TAB PO SCH (07:57)
[2022-10-11] MEDS: SPIRONOLACTONE 25 MG (ALDACTONE) TAB PO SCH (07:57)
[2022-10-11 08:00] VITALS: BP_SYST 124; BP_SYST 97; BP_DIAS 64; BP_DIAS 66
--- NOTE | 2022-10-11 08:55 | Occupational Therapy Eval ---
OT Evaluation-General/PLF Medical Diagnosis Admission Date Oct 10, 2022 at 17:10 Medical Diagnosis: CVA Onset Date: Oct 01, 2022 Therapy Diagnosis Therapy Diagnosis: decreased ADL status, impaired functional use LUE Precautions Precautions/Isolations: Standard Precautions Referral Physician: Chaparro Dawson Reason: Evaluation/Treatment Medical History Additional Medical History DM, PE, hypotension, chronic systolic HF, PENG Current History Cardioembolic CVA following TAVR (TAVR 09/22/22, CVA 10/01) with L side weakness and vision deficit Social History Home: Apartment Current Living Status: Alone Entry Into Home: Level Entry ADL-Prior Level of Function SCALE: Activities may be completed with or without assistive devices. 6-Yzxnwurrpi-nrvwfol completes the activity by him/herself with no assistance from a helper. 5-Set-up or Clean-up Assistance-helper sets up or cleans up; patient completes activity. Edison assists only prior to or following the activity. 4-Supervision or Touching Assistance-helper provides verbal cues and/or touching/steadying and/or contact guard assistance as patient completes activity. Assistance may be provided throughout the activity or intermittently. 3-Partial/Moderate Assistance-helper does LESS THAN HALF the effort. Edison lifts, holds or supports trunk or limbs, but provides less than half the effort. 2-Substantial/Maximal Assistance-helper does MORE THAN HALF the effort. Edison lifts or holds trunk or limbs and provides more than half the effort. 1-Qzedidhsq-rcfwde does ALL the effort. Patient does none of the effort to complete the activity. Or, the assistance of 2 or more helpers is required for the patient to complete the activity. If activity was not attempted, code reason: 7-Patient Refused. 9-Not Applicable-not attempted and the patient did not perform the activity before the current illness, exacerbation or injury. 10-Not Attempted due to Environmental Limitations-(lack of equipment, weather restraints, etc.). 88-Not Attempted due to Medical Conditions or Safety Concerns. ADL PLOF Comments Pt reports IND with ADLS and functional mobility at PLOF, no AD. Pt owns a SPC. Pt has a walk in shower with GBS, GBs by toilet, no SC. Self Care: Independent Functional Cognition: Independent DME/Equipment: Grab Bars, Shower DME/Equipment Comments SPC Drive Self: Yes Leisure Interests: bead work, reyna, handmaking items OT Current Status Subjective Pt in bed, agreeable to OT evaluation and tx. Mental Status/Objective Patient Orientation: Person, Place, Time, Situation Current Glasses/Contacts: Yes Hearing Aids: No Dentures/Partials: Yes (upper) Hand Dominance: Right Upper Extremity ROM RUE WFL LUE shoulder flexion to approx 90 degrees, WFL elbow/wrist/hand movements with increased time and effort. Upper Extremity Coordination Decreased L hand coordination, increased effort required and impaired sensation. Upper Extremity Sensation Numbness reported LUE, occasional tingling. Upper Extremity Strength RUE grossly 4/5 LUE grossly 3/5 ADL-Treatment Eating (QC): 5 (Per pt reprot) Oral Hygiene (QC): 3 (Min A with brushing dentures. Set up with containers and placing toothpaste onto brush) Shower/Bathe Self (QC): 3 (Min A. Assist with washing RUE, min A balance assistance in standing.) Upper Body Dressing (QC): 3 (Mod A donning/doffing pack puller long sleeve shirt.) Lower Body Dressing (QC): 3 (Mod A. Pt able to doff pants with Min A standing balance, mod A with donning.) On/Off Footwear (QC): 3 (Mod A, pt able to doff, some assistance to don.) Toileting Hygiene (QC): 3 (Min A. Pt able to manage pants down and perform hygiene, min A with pant hike, and min A standing balance.) Other Treatments Pt transferred supine to sit EOB (HOB elevated using bed rails), SBA. Pt used FWW to perform functional mobility to bathroom, assistance with guiding walker required and moderate assistance with standing balance. Pt completed toileting, then transferred to chair at sink for sponge bath. Pt completed sponge bath, dressing, and grooming tasks at sink, then used FWW to transfer to recliner. Min A sit to stand with VCs for UE placement and positioning, mod A with functional mobility using FWW with guidance assistance of walker and VCs to filler picker L foot while walking. Post tx, pt in recliner, call light in reach and all needs met. Education OT Patient Education: Correct positioning, Energy conservation, Modified ADL techniques, Progress toward Goal/Update tx plan, Purpose of tx/functional activities, Rehab process Teaching Recipient: Patient Teaching Methods: Discussion Response to Teaching: Verbalize Understanding BIMS CAM BIMS Expression of Ideas and Wants: Without Difficulty Understanding Verbal Content: Understands Brief Interview/Mental Status: Yes IRF YIFAN BIMS: IRF YIFAN BIMS Response (Comments) Value Repitition of Three Words Three 3 Recalls Socks Yes, No Cue Required 2 Recalls Blue Yes, No Cue Required 2 Recalls Bed Yes, No Cue Required 2 Year Correct 3 Month Accurate Within 5 Days 2 Day Correct 1 Total 15 [address] Ass[address]. Mental [address] No CAM Mental Status Change/Baseline: 0 Inattention: 0 Disorganized thinkin Altered level of consciousness: 0 OT Short Term Goals Short Term Goals Time Frame: Oct 19, 2022 Toileting hygiene: 4 Shower/bathe self: 4 Upper body dressin Lower body dressin Putting on/taking off footwear: 4 OT Fpc Goals Fpc Goals Time Frame: Nov 04, 2022 Eating (QC): 6 Oral Hygiene (QC): 6 Toileting Hygiene (QC): 6 Shower/Bathe Self (QC): 6 Upper Body Dressing (QC): 6 Lower Body Dressing (QC): 6 On/Off Footwear (QC): 6 Additional Goals: 1-Demonstrate ADL Tasks, 2-Verbalize Understanding, 3- ImproveStrength/Guera 1=Demonstrate adherence to instructed precautions during ADL tasks. 2=Patient will verbalize/demonstrate understanding of assistive devices/modifications for ADL. 3=Patient will improve strength/tolerance for activity to enable patient to perform ADL's. OT Education/Plan Problem List/Assessment Assessment: Decreased Activ Tolerance, Decreased UE Strength, Impaired Coordination, Impaired Funct Balance, Impaired I ADL's, Impaired Self-Care Skills, Restricted Funct UE ROM, Visual-Perceptual Deficit Discharge Recommendations Plan/Recommendations: Continue POC Treatment Plan/Plan of Care Patient would benefit from OT for education, treatment and training to promote independence in ADL's, mobility, safety and/or upper extremity function for ADL's. Plan of Care: ADL Retraining, Functional Mobility, Group Exercise/Act as Ind, UE Funct Exercise/Act, UE Neuromus Re-Ed/Coord, Visual/Perceptual Retrain Treatment Duration: Nov 04, 2022 Frequency: At least 5 of 7 days/Wk (IRF) Estimated Hrs Per Day: 1.5 hours per day Time Start Time: 07:45 Stop Time: 09:00 DATE: Oct 11, 2022 Total Time Billed (hr/min): 75 Billed Treatment Time 1, EVM (10'), ADL 4 (65') RENEE FUENTES OT Oct 11, 2022 08:55
[2022-10-11] MEDS ORDERED: meTOproloL SUCCINATE 50 MG (TOPROL XL) TAB PO SCH (09:00)
[2022-10-11] MEDS: SENNA W/DOCUSATE (SENOKOT S) TABLET PO SCH ×2 (09:38→20:38)
[2022-10-11] MEDS: polyethylene glycoL POWDER 17 GM (MIRALAX) PACK PO SCH ×2 (09:38→20:38)
--- NOTE | 2022-10-11 09:51 | Physical Therapy Evaluation ---
PT Evaluation-General Medical Diagnosis Admission Date Oct 10, 2022 at 17:10 Medical Diagnosis: CVA Onset Date: Oct 01, 2022 Therapy Diagnosis Therapy Diagnosis: impaired mobility, strength, balance, coordination Precautions Precautions/Isolations: Standard Precautions Referral Physician: Ellen Mayfield DO Reason for Referral: Evaluation/Treatment Medical History Pertinent Medical History: DM, GERD, HTN Reviewed History: Yes Social History Home: Apartment Current Living Status: Alone Entry Into Home: Level Entry Prior Prior Level of Function SCALE: Activities may be completed with or without assistive devices. 5-Rqufeiajta-ujcnefl completes the activity by him/herself with no assistance from a helper. 5-Set-up or Clean-up Assistance-helper sets up or cleans up; patient completes activity. [place] assists only prior to or following the activity. 4-Supervision or Touching Assistance-helper provides verbal cues and/or touching/steadying and/or contact guard assistance as patient completes activity. Assistance may be provided throughout the activity or intermittently. 3-Partial/Moderate Assistance-helper does LESS THAN HALF the effort. [place] lifts, holds or supports trunk or limbs, but provides less than half the effort. 2-Substantial/Maximal Assistance-helper does MORE THAN HALF the effort. [place] lifts or holds trunk or limbs and provides more than half the effort. 4-Uqrbjqalt-xoursu does ALL the effort. Patient does none of the effort to complete the activity. Or, the assistance of 2 or more helpers is required for the patient to complete the activity. If activity was not attempted, code reason: 7-Patient Refused. 9-Not Applicable-not attempted and the patient did not perform the activity before the current illness, exacerbation or injury. 10-Not Attempted due to Environmental Limitations-(lack of equipment, weather restraints, etc.). 88-Not Attempted due to Medical Conditions or Safety Concerns. Bed Mobility: 6 Transfers (B,C,W/C): 6 Gait: 6 Indoor Mobility (Ambulation): Independent patient has her own SPC PT Evaluation-Current Subjective Patient in recliner pre tx, agrees to PT, has no complaints of pain. Pain Section J - Health Conditions 1. Rarely or not at all 2. Occasionally 3. Frequently 4. Almost constantly 8. Unable to answer Pain Effect on Sleep: 1 Pain Interference with Therapy: 1 Pain Interference w/Day-to-Day: 1 Pt/Family Goals to be independent at home Objective Patient Orientation: Person, Place, Situation ROM/Strength ROM Lower Extremities WNL Strength Lower Extremities LLE (hip flexion 3/5, knee flexion 3+/5, knee extension 3+/5, dorsiflexion 3+/5), RLE (hip flexion 3+/5, knee flexion 4/5, knee extension 4/5, dorsiflexion 3+/5) Neuromuscular (Tone, Coordination, Reflexes) Patient has left neglect, impaired peripheral vision on the left side, poor coordination of left leg. Sensory Vision: Hearing: Functional Hand Dominance: Right Sensation Right Lower Extremit: Intact Sensation Left Lower Extremity: Impaired Transfers Roll Left & Right (QC): 3 Sit to Lying (QC): 3 Lying to Sitting/Side of Bed(Q: 3 Sit to Stand (QC): 3 Chair/Mtz-va-Midql Xfer(QC): 3 Toilet Transfer (QC): 3 Car Transfer (QC): 3 Patient performs rolling and supine <-> sit with min assist, sit <-> stand and transfers min assist, car transfer min assist. Patient needs a lot of cues for positioning and safety due to left neglect and poor coordination. Gait Does the Patient Walk?: Yes Mode of Locomotion: Both Anticipated Mode of Locomotion: Walk Walk 10 feet (QC): 3 Walk 50 ft with 2 Turns(QC): 3 Walk 150 ft (QC): 88 Walking 10ft/uneven surface-QC: 88 Distance: 100'x2 Gait Assistive Device: FWW Comments/Gait Description Patient can ambulate 100' with a rolling walker with min assist (including 50' with at least 2 turns of 90 degrees but is not safe to ambulate over an uneven surface yet). Patient has severely impaired coordination of LLE and trunk, needs min assist to maintain balance and to help guide walker, has a step-to gait pattern, very large step with left leg and no heel strike. Wheelchair Training Does the Pt Use a Wheelchair?: Yes Distance: 150' Wheel 50 ft with 2 turns (QC): 3 Wheel 150 ft (QC): 3 Type of Wheelchair: Manual Patient can propel a manual WC 150' with min assist, uses right arm and leg, cues for direction due to left neglect. Stairs 1 Step (curb) (QC): 88 4 Steps (QC): 88 12 Steps (QC): 88 Balance Sitting Static: Fair Sitting Dynamic: Fair Standing Static: Poor Standing Dynamic: Poor Picking up an Object (QC): 3 (min assist using a janitor cleaner) Treatment NuStep level 4 for 15' Assessment/Needs Patient in recliner post tx with nurse call, phone, tray, all needs met. Patient has impaired mobility, strength, endurance, severe coordination impairments in LLE and trunk, needs min assist with transfers and ambulation Rehab Potential: Fair PT Capacity Planning Engineer Goals Capacity Planning Engineer Goals PT Prison Goals Time Frame: Oct 25, 2022 Roll Left to Right (QC): 4 (SBA) Sit to Lying (QC): 4 (SBA) Lying-Sitting on Side/Bed(QC): 4 (SBA) Sit to Stand (QC): 4 (CGA) Chair/Gkq-wr-Nrjzn Xfer(QC): 4 (CGA) Toilet/Commode Transfer (QC): 4 (CGA) Car Transfer (QC): 4 (CGA) Walk 10 feet (QC): 4 (CGA) Walk 10ft-Uneven Surface(QC): 4 (CGA) Walk 50ft with 2 Turns (QC): 4 (CGA) Walk 150 ft (QC): 4 (CGA) Wheel 50 feet with 2 turns (QC: 5 Wheel 150 feet: 5 1 Step (curb) (QC): 4 (CGA) 4 Steps (QC): 4 (CGA) 12 Steps (QC): 88 Picking up an Object (QC): 4 (SBA using janitor cleaner) PT Plan Problem List Problem List: Activity Tolerance, Functional Strength, Safety, Balance, Gait, Transfer, Bed Mobility, ROM Treatment/Plan Treatment Plan: Continue Plan of Care Treatment Plan: Bed Mobility, Education, Functional Activity Guera, Functional Strength, Group Therapy, Gait, Safety, Therapeutic Exercise, Transfers Treatment Duration: Oct 25, 2022 Frequency: At least 5 of 7 days/Wk (IRF) Estimated Hrs Per Day: 1.5 hours per day Patient and/or Family Agrees t: Yes Safety Risks/Education Patient Education: Gait Training, Transfer Techniques, Correct Positioning, W/C Management, Safety Issues Teaching Recipient: Patient Teaching Methods: Demonstration, Discussion Response to Teaching: Reinforcement Needed Discharge Recommendations Plan Patient will perform bed mobility and transfer training, balance and endurance training ,functional strengthening, stair training, gait training, and education, to improve functional mobility and independence at home. Therapy Discharge Recommendati: Scheduled Assistance, Home & Family, Post Acute PT Time Time In: 0900 Time Out: 1000 DATE: Oct 11, 2022 Total Billed Treatment Time: 60 Total Billed Treatment 1 visit EVM 30' EX 15' FA 15' AINSLEY CRENSHAW PT Oct 11, 2022 09:51
--- NOTE | 2022-10-11 11:54 | Consultation-Cardiology ---
HPI-Cardiology Cardiology Consultation: Date of Consultation 10/11/22 Time Seen by a Provider: 11:40 Date of Admission 10-10-22 Attending Physician Admitting Physician Admitting Physician: Ellen Mayfield DO Attending Physician: Ellen Mayfield DO Consulting Physician Kait Quarles MD HPI: Chief Complaint: Hypotension H/O CVA post TAVR Ms. Kam is a 77 yr old female admitted to [facility] on 10-10-22 from [facility] in [place], [place]. She underwent TAVR on 09-22-22 in [place], [place]. She subsequently had acute resp failure after she was discharged home on 10-01-22 at which time she was taken to [facility]. She was transferred to [facility] at that time. Upon arrival to [facility] she was found to have left sided facial droop, left upper and lower extremity weakness. She was dx with an acute CVA at that time at [facility]. She has continued left upper and lower extremity weakness. She has visual disturbance in her left eye of blurriness. She reports she has vertigo following event. Review of Systems-Cardiology All Other Systems Reviewed Negative Unless Noted: Yes TBW-Opgcei-Xyiikf Hx Patient Social History Marrital Status: single Employed/Student: retired Smoking Status: Former Smoker Have you traveled recently?: No Alcohol Use?: No Pt feels they are or have been: No Immunizations Up To Date Date of Influenza Vaccine: Jun 09, 2022 Past Medical History PMH As described under Assessment. Family Medical History Family Medical History: She reports her mother had CHF. She reports her father had heart disease, but she does not know the details. Allergies and Home Medications Allergies Coded Allergies: Penicillins (Verified Allergy, Unknown, 10/10/22) atorvastatin (Verified Allergy, Unknown, 10/10/22) meperidine (Verified Allergy, Unknown, 10/10/22) morphine (Verified Allergy, Unknown, 10/10/22) tetracycline (Verified Allergy, Unknown, 10/10/22) Patient Home Medication List Acetaminophen (Tylenol) 325 Mg Capsule, 325-650 MG PO Q6H PRN for PAIN-MILD (1- 4), (Reported) Entered as Reported by: OLLIE BARRON on 10/10/22 2452 Last Action: Reviewed Aspirin (Aspirin EC) 81 Mg Tablet.dr, 81 MG PO DAILY, (Reported) Entered as Reported by: HONORIO LE on 10/12/22 141 Last Action: Reviewed Docusate Sodium (Docusate Sodium) 100 Mg Capsule, 100 MG PO BID, (Reported) Entered as Reported by: OLLIE BARRON on 10/10/22 135 Last Action: Continued Duloxetine HCl (Duloxetine HCl) 30 Mg Capsule.dr, 30 MG PO HS, (Reported) Entered as Reported by: OLLIE BARRON on 10/10/22 135 Last Action: Continued Empagliflozin (Jardiance) 10 Mg Tablet, 10 MG PO DAILY, (Reported) Entered as Reported by: OLLIE BARRON on 10/10/22 135 Last Action: Continued Fexofenadine HCl (Sasha Allergy) 180 Mg Tablet, 180 MG PO DAILY, (Reported) Entered as Reported by: HONORIO LE on 10/12/22 1416 Last Action: Reviewed Lisinopril (Lisinopril) 20 Mg Tablet, 20 MG PO DAILY, (Reported) Entered as Reported by: HONORIO LE on 10/12/22 143 Last Action: Reviewed Losartan Potassium (Losartan Potassium) 50 Mg Tablet, 50 MG PO DAILY, (Reported) Entered as Reported by: HONORIO LE on 10/12/22 143 Last Action: Reviewed Metformin HCl (Metformin HCl) 500 Mg Tablet, 1,000 MG PO BID, (Reported) Entered as Reported by: HONORIO LE on 10/12/22 1424 Last Action: Reviewed Pantoprazole Sodium (Pantoprazole Sodium) 40 Mg Tablet.dr, 40 MG PO DAILY, (Reported) Entered as Reported by: OLLIE BARRON on 10/10/22 1358 Last Action: Continued Pramipexole Di-HCl (Pramipexole Dihydrochloride) 0.5 Mg Tablet, 1 MG PO HS, (Reported) Entered as Reported by: HONORIO LE on 10/12/22 1415 Last Action: Reviewed Pravastatin Sodium (Pravastatin Sodium) 40 Mg Tablet, 40 MG PO HS, (Reported) Entered as Reported by: OLLIE BARRON on 10/10/22 1401 Last Action: Converted Trazodone HCl (Trazodone HCl) 50 Mg Tablet, 50 MG PO HS, (Reported) Entered as Reported by: OLLIE BARRON on 10/10/22 1403 Last Action: Continued Physical Exam-Cardiology Physical Exam Vital Signs/I&O 10/13/22 08:05 Temp 35.6 Pulse 106 Resp 16 B/P (MAP) 113/74 (87) Pulse Ox 99 O2 Delivery Room Air 10/13/22 00:00 Intake Total 1220 ml Balance 1220 ml Capillary Refill : Constitutional: AAO x 3, well-developed, well-nourished HEENT: hearing is well preserved, oral hygience is good Neck: No carotid bruit; carotid pulses are 2 + bilaterally Respiratory: No accessory muscle use, No respiratory distress; chest expansion is symmetric, chest is bilaterally symmetric, lungs clear to auscultation Cardiovascular: regular rate-rhythm; No JVD; S1 and S2, systolic murmur Gastrointestinal: No tender; soft, round, audible bowel sounds Extremities: no lower extremity edema bilateral Neurologic/Psychiatric: other (LUE and LLE weakness) Skin: No rash on exposed areas, No ulcerations on exposed areas Data Review Labs Laboratory Tests 10/12/22 11:03: Glucometer 121H 10/12/22 16:30: Glucometer 221H 10/13/22 06:17: Glucometer 134H A/P-Cardiology Assessment/Admission Diagnosis H/O severe aortic stenosis - S/P TAVR on 09-22-22 in [place], [place] by Dr. Chery No reported h/o CAD - reports she had a cardiac cath by Dr. Chery in [place], [place] prior to TAVR and she reports no coronary dz NICM - per pt report and report from [facility] her LVEF is 10-20% H/O acute resp failure on 10-01-22 - Pneumonia, CHF, hypoxia at [facility] after TAVR discharge (10-01-22) - transferred to [facility] in [place], [place] - upon arrival to [facility] it was noted she has left sided facial droop, upper and LE extremity weakness CVA - CT of head on 10-01-22 at [facility] showed acute to subacute infarcts in the right frontal and left parietal region - Dr. Callejas (neurologist at [facility]) note of 2-18-23 states cardioembolic stroke d/t multiple hypodensisties seen on CT (see above) - CTA of the neck on 10-01-22 at [facility] sowed no stenosis of the cervical carotid or vertebral arteries - Eliquis started at [facility] CKD 3 - follows with Dr. 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 Mayfield - continue Eliquis Hypotensive at this time - hold BB and Aldactone for now NICM - not suitable candidate for CORIE or ARB d/t CKD 3 (follows with Dr. Lee of [facility]) Monitor lab Further recs will be based upon her course We will request echo from [facility] and records from Dr. Chery at [facility] We would like to thank Dr. Mayfield for this consult MAURICIO MARTIN Oct 11, 2022 11:54
--- NOTE | 2022-10-11 13:21 | ST Cognitive Linguistic Eval ---
Speech Evaluation-General Medical Diagnosis CVA Onset Date: Oct 01, 2022 Therapy Diagnosis Therapy Diagnosis: Intact Cognitive Linguistic Skills Precautions Precautions: Fall, Aspiration Precautions/Isolations: Aspiration, Fall Prevention, Standard Precautions Referral Referring Physician: Dr. Mayfield Reason for Referral: Evaluation/Treatment Medical History Pertinent Medical History: DM, GERD, HTN Reviewed History: Yes Social History Current Living Status: Alone Speech PLF-Current Status Prior Level of Function The patient denied prior challenges with her speech, language, or cognition. The patient stated her oropharyngeal swallowing function was evaluated approximately three weeks ago in [place] ("because I felt like something was not going right"), however, she was recommended a regular consistency diet with thin liquids. Per patient, the oropharyngeal swallowing issues she was experiencing are no longer occurring. Subjective The patient was lying in bed, awake and alert, upon entrance to her room by the clinician. The patient greeted the clinician appropriately and was agreeable to participation in the cognitive linguistic evaluation. The patient remained pleasant and participatory throughout the skilled evaluation. Language Eval: Auditory Comprehends Simple Yes/No Ques: Functional Indent/Objects Multiple Montero: Functional Follows 1-Step Commands: Functional Follows Complex Directions: Functional Follows General Conversations: Functional Language Eval: Verbal Language Completes Spontaneous Greeting: Functional Produces Auto, Serial Info: Functional Word Finding: Mild Requests Basic Needs: Functional States Basic Personal Info: Functional Expresses Complex Ideas: Functional Cognitive Patient Orientation The patient was independently oriented to self, location, month, day of the week, date and year. Objective Cognitive Domain Attention: WNL Memory: WNL Problem Solving: Functional Executive Functions: WNL Visuospatial Skills: WNL Composite Severity Rating: WNL Objective Oral Motor/Speech Production Per chart review, the patient displays a left facial droop. Upon evaluation, the right facial weakness is minimal to non-observant. The patient stated the facial droop and weakness is residual from "a long time ago." The patient reported she experienced [place] Palsy during her first and the weakness has remained present since that time. The patient does not display dysarthria or apraxia of speech. The patient is 100% intelligible in known and unknown contexts. Impression The patient demonstrated intact cognitive linguistic skills. Skilled speech pathology services are not warranted at this time. Speech-Plan Treatment Plan Speech Therapy Treatment Plan: Discontinue ST Treatment Duration: Oct 11, 2022 Frequency: 1 time per week Estimated Hrs Per Day: .5 hour per day Rehab Potential: Good Pt/Family Agrees to Plan: Yes Safety Risks/Education Teaching Recipient: Patient Teaching Methods: Discussion Response to Teaching: Verbalize Understanding Education Topics Provided: Results, Recommendations, Plan of Care Time Speech Therapy Time In: 10:45 Speech Therapy Time Out: 11:15 DATE: Oct 11, 2022 Total Billed Time: 30 Billed Treatment Time 1, [facility] Oct 11, 2022 13:21
--- NOTE | 2022-10-11 14:01 | Physical Therapy Daily Note ---
PT Daily Note-Current Subjective Patient in bed pre tx, agrees to PT, has 8/10 pain in right leg. Will be co- treating with OT due to poor patient mobility, strength, endurance, severe debility, severe pain with activity, coordinate UE and LE with activity, safety and reduce risk of falls. Pain Section J - Health Conditions 1. Rarely or not at all 2. Occasionally 3. Frequently 4. Almost constantly 8. Unable to answer Pain Effect on Sleep: 1 Pain Interference with Therapy: 1 Pain Interference w/Day-to-Day: 1 Appearance Patient in therapy gym post tx, will continue with OT for a bit. Mental Status Patient Orientation: Person, Place, Situation Attachments: Oxygen, IV Transfers SCALE: Activities may be completed with or without assistive devices. 5-Fqcmbcdqbk-ayozqqd completes the activity by him/herself with no assistance from a helper. 5-Set-up or Clean-up Assistance-helper sets up or cleans up; patient completes activity. [place] assists only prior to or following the activity. 4-Supervision or Touching Assistance-helper provides verbal cues and/or touching/steadying and/or contact guard assistance as patient completes activity. Assistance may be provided throughout the activity or intermittently. 3-Partial/Moderate Assistance-helper does LESS THAN HALF the effort. [place] lifts, holds or supports trunk or limbs, but provides less than half the effort. 2-Substantial/Maximal Assistance-helper does MORE THAN HALF the effort. [place] lifts or holds trunk or limbs and provides more than half the effort. 8-Nkfonjvue-sfospt does ALL the effort. Patient does none of the effort to complete the activity. Or, the assistance of 2 or more helpers is required for the patient to complete the activity. If activity was not attempted, code reason: 7-Patient Refused. 9-Not Applicable-not attempted and the patient did not perform the activity before the current illness, exacerbation or injury. 10-Not Attempted due to Environmental Limitations-(lack of equipment, weather restraints, etc.). 88-Not Attempted due to Medical Conditions or Safety Concerns. Roll Left & Right (QC): 3 Lying to Sitting/Side of Bed(Q: 2 Sit to Stand (QC): 3 Chair/Owt-jo-Jkbng Xfer(QC): 4 Max assist for supine to sit, min assist for sit to stand, CGA for transfers, patient needs cues for positioning during mobility. Gait Training Distance: 50' Walk 10 feet (QC): 4 Walk 50 ft with 2 Turns(QC): 4 Gait Persons Needed: 1 Gait Assistive Device: FWW WC follow, very slow ambulation, decreased weight bearing on right leg, step-to gait pattern, poor foot clearance Exercises standing in parallel bars working on bearing weight and endurance on the right leg while working on UE peg activity Treatments PT performed bed mobility and transfers, ambulation, standing activity, OT performed UE peg activity, UE positioning and safety during activity Assessment Current Status: Fair Progress severe pain with activity PT Orthopedics Pediatric Physician Goals Orthopedics Pediatric Physician Goals PT Mcc Goals Time Frame: Oct 25, 2022 Roll Left & Right (QC): 4 (SBA) Sit to Lying (QC): 4 (SBA) Lying-Sitting on Side/Bed(QC): 4 (SBA) Sit to Stand (QC): 4 (CGA) Chair/Yrx-ix-Eqgtb Xfer(QC): 4 (CGA) Toilet Transfer (QC): 4 (CGA) Car Transfer (QC): 4 (CGA) Does the Patient Walk: Yes Walk 10 feet (QC): 4 (CGA) Walk 50ft with 2 Turns (QC): 4 (CGA) Walk 150 ft (QC): 4 (CGA) Walking 10ft on Uneven Surface: 4 (CGA) 1 Step (curb) (QC): 4 (CGA) 4 Steps (QC): 4 (CGA) 12 Steps (QC): 88 Picking up an Object (QC): 4 (SBA using garbage worker) Wheel 50 feet with 2 turns (QC: 5 Wheel 150 feet: 5 PT Plan Problem List Problem List: Activity Tolerance, Functional Strength, Safety, Balance, Gait, Transfer, Bed Mobility, ROM Treatment/Plan Treatment Plan: Continue Plan of Care Treatment Plan: Bed Mobility, Education, Functional Activity Guera, Functional Strength, Group Therapy, Gait, Safety, Therapeutic Exercise, Transfers Treatment Duration: Oct 25, 2022 Frequency: At least 5 of 7 days/Wk (IRF) Estimated Hrs Per Day: 1.5 hours per day Patient and/or Family Agrees t: Yes Safety Risks/Education Patient Education: Gait Training, Transfer Techniques, Correct Positioning, Safety Issues Teaching Recipient: Patient Teaching Methods: Demonstration, Discussion Response to Teaching: Reinforcement Needed Time Time In: 1300 Time Out: 1340 DATE: Oct 11, 2022 Total Billed Treatment Time: 40 Total Billed Treatment 1 visit FA 40' co-treated for 40' AINSLEY CRENSHAW PT Oct 11, 2022 14:01
--- NOTE | 2022-10-11 14:38 | Physical Therapy Daily Note ---
PT Daily Note-Current Subjective Patient in bed pre tx, agrees to PT, has no complaints of pain. Pain Section J - Health Conditions 1. Rarely or not at all 2. Occasionally 3. Frequently 4. Almost constantly 8. Unable to answer Pain Effect on Sleep: 1 Pain Interference with Therapy: 1 Pain Interference w/Day-to-Day: 1 Appearance Patient in bed post tx with nurse call, phone, tray, all needs met Mental Status Patient Orientation: Person, Place, Situation Transfers SCALE: Activities may be completed with or without assistive devices. 8-Fgsgkaoqrd-pehwqss completes the activity by him/herself with no assistance from a helper. 5-Set-up or Clean-up Assistance-helper sets up or cleans up; patient completes activity. [place] assists only prior to or following the activity. 4-Supervision or Touching Assistance-helper provides verbal cues and/or touching/steadying and/or contact guard assistance as patient completes activity. Assistance may be provided throughout the activity or intermittently. 3-Partial/Moderate Assistance-helper does LESS THAN HALF the effort. [place] lifts, holds or supports trunk or limbs, but provides less than half the effort. 2-Substantial/Maximal Assistance-helper does MORE THAN HALF the effort. [place] lifts or holds trunk or limbs and provides more than half the effort. 0-Gdtbthqzj-chjduw does ALL the effort. Patient does none of the effort to complete the activity. Or, the assistance of 2 or more helpers is required for the patient to complete the activity. If activity was not attempted, code reason: 7-Patient Refused. 9-Not Applicable-not attempted and the patient did not perform the activity before the current illness, exacerbation or injury. 10-Not Attempted due to Environmental Limitations-(lack of equipment, weather restraints, etc.). 88-Not Attempted due to Medical Conditions or Safety Concerns. Exercises Supine Ex: Ankle pumps, Quad Set, Glut sets, Heel Slides, Short Arc Quads, Straight leg raise, Hip abd/add Supine Reps: 20 Treatments LE ROM/strengthening Assessment Current Status: Fair Progress poor coordination on LLE PT Skilled Nursing Goals Radio Interference Trouble Shooter Goals PT Skilled Nursing Goals Time Frame: Oct 25, 2022 Roll Left & Right (QC): 4 (SBA) Sit to Lying (QC): 4 (SBA) Lying-Sitting on Side/Bed(QC): 4 (SBA) Sit to Stand (QC): 4 (CGA) Chair/Rym-fj-Zgsrz Xfer(QC): 4 (CGA) Toilet Transfer (QC): 4 (CGA) Car Transfer (QC): 4 (CGA) Does the Patient Walk: Yes Walk 10 feet (QC): 4 (CGA) Walk 50ft with 2 Turns (QC): 4 (CGA) Walk 150 ft (QC): 4 (CGA) Walking 10ft on Uneven Surface: 4 (CGA) 1 Step (curb) (QC): 4 (CGA) 4 Steps (QC): 4 (CGA) 12 Steps (QC): 88 Picking up an Object (QC): 4 (SBA using auto slip cover installer) Wheel 50 feet with 2 turns (QC: 5 Wheel 150 feet: 5 PT Plan Problem List Problem List: Activity Tolerance, Functional Strength, Safety, Balance, Gait, Transfer, Bed Mobility, ROM Treatment/Plan Treatment Plan: Continue Plan of Care Treatment Plan: Bed Mobility, Education, Functional Activity Guera, Functional Strength, Group Therapy, Gait, Safety, Therapeutic Exercise, Transfers Treatment Duration: Oct 25, 2022 Frequency: At least 5 of 7 days/Wk (IRF) Estimated Hrs Per Day: 1.5 hours per day Patient and/or Family Agrees t: Yes Safety Risks/Education Patient Education: Correct Positioning, Safety Issues Teaching Recipient: Patient Teaching Methods: Demonstration, Discussion Response to Teaching: Reinforcement Needed Time Time In: 1245 Time Out: 1300 DATE: Oct 11, 2022 Total Billed Treatment Time: 15 Total Billed Treatment 1 visit EX Leah' AINSLEY CRENSHAW PT Oct 11, 2022 14:38
--- NOTE | 2022-10-11 16:25 | Consultation-Cardiology ---
HPI-Cardiology Cardiology Consultation: Date of Consultation 10/11/22 Time Seen by a Provider: 16:10 Date of Admission Attending Physician Admitting Physician Admitting Physician: Ellen Mayfield DO Attending Physician: Ellen Mayfield DO Consulting Physician KRISTIN MUNGUIA MD, MA, FACP, FACC, [facility], CCDS Physician requesting consult: Dr Mayfield HPI: Chief Complaint: Reason for Card consult: Hypotension, h/o CVA post TAVR Ms. Kam is a 77 yr old female admitted to [facility] on 10-10-22 from [facility] in [place], [place]. She underwent TAVR on 09-22-22 in [place], [place]. She subsequently had acute resp failure after she was discharged home on 10-01-22 at which time she was taken to [facility]. She was transferred to [facility] at that time. Upon arrival to [facility] she was found to have left sided facial droop, left upper and lower extremity weakness. She was dx with an acute CVA at that time at [facility]. She has continued left upper and lower extremity weakness. She has visual disturbance in her left eye of blurriness. She reports she has vertigo following event. Review of Systems-Cardiology All Other Systems Reviewed Negative Unless Noted: Yes UZX-Owmhyb-Ngfmup Hx Patient Social History Marrital Status: single Employed/Student: retired Smoking Status: Former Smoker Have you traveled recently?: No Alcohol Use?: No Pt feels they are or have been: No Immunizations Up To Date Date of Influenza Vaccine: Jun 09, 2022 Past Medical History PMH As described under Assessment. Family Medical History Family Medical History: She reports her mother had CHF. She reports her father had heart disease, but she does not know the details. Allergies and Home Medications Allergies Coded Allergies: Penicillins (Verified Allergy, Unknown, 10/10/22) atorvastatin (Verified Allergy, Unknown, 10/10/22) meperidine (Verified Allergy, Unknown, 10/10/22) morphine (Verified Allergy, Unknown, 10/10/22) tetracycline (Verified Allergy, Unknown, 10/10/22) Patient Home Medication List Home Medication List Reviewed: Yes Acetaminophen (Tylenol) 325 Mg Capsule, 325-650 MG PO Q6H, (Reported) Entered as Reported by: OLLIE BARRON on 10/10/221348 Last Action: Converted Apixaban (Eliquis) 5 Mg Tablet, 5 MG PO BID, (Reported) Entered as Reported by: OLLIE BARRON on 10/10/221350 Last Action: Continued Docusate Sodium (Docusate Sodium) 100 Mg Capsule, 100 MG PO BID, (Reported) Entered as Reported by: OLLIE BARRON on 10/10/221351 Last Action: Continued Duloxetine HCl (Duloxetine HCl) 30 Mg Capsule.dr, 30 MG PO HS, (Reported) Entered as Reported by: OLLIE BARRON on 10/10/221351 Last Action: Continued Empagliflozin (Jardiance) 10 Mg Tablet, 10 MG PO DAILY, (Reported) Entered as Reported by: OLLIE BARRON on 10/10/221351 Last Action: Continued Furosemide (Furosemide) 20 Mg Tablet, 20 MG PO DAILY, (Reported) Entered as Reported by: OLLIE BARRON on 10/10/221355 Last Action: Continued Loratadine (Loratadine) 10 Mg Tablet, 10 MG PO DAILY, (Reported) Entered as Reported by: OLLIE BARRON on 10/10/221355 Last Action: Continued Meclizine HCl (Meclizine HCl) 25 Mg Tablet, 25 MG PO TID, (Reported) Entered as Reported by: OLLIE BARRON on 10/10/221356 Last Action: Continued Metoprolol Succinate (Metoprolol Succinate) 50 Mg Tab.er.24h, 50 MG PO DAILY, (Reported) Entered as Reported by: OLLIE BARRON on 10/10/221356 Last Action: Continued Pantoprazole Sodium (Pantoprazole Sodium) 40 Mg Tablet.dr, 40 MG PO DAILY, (Reported) Entered as Reported by: OLLIE BARRON on 10/10/221357 Last Action: Continued Polyethylene Glycol 3350 (Miralax) 17 Gram Powd.pack, 17 GM PO DAILY PRN for CONSTIPATION-2ND LINE, (Reported) Entered as Reported by: OLLIE BARRON on 10/10/22 1401 Last Action: Continued Pramipexole Di-HCl (Mirapex) 1 Mg Tablet, 1 MG PO HS, (Reported) Entered as Reported by: OLLIE BARRON on 10/10/221357 Last Action: Converted Pravastatin Sodium (Pravastatin Sodium) 40 Mg Tablet, 40 MG PO HS, (Reported) Entered as Reported by: OLLIE BARRON on 10/10/221400 Last Action: Converted Spironolactone (Spironolactone) 25 Mg Tablet, 12.5 MG PO DAILY, (Reported) Entered as Reported by: OLLIE BARRON on 10/10/221401 Last Action: Continued Trazodone HCl (Trazodone HCl) 50 Mg Tablet, 50 MG PO HS, (Reported) Entered as Reported by: OLLIE BARRON on 10/10/221402 Last Action: Continued Physical Exam-Cardiology Physical Exam Vital Signs/I&O 10/11/22 10/11/22 08:00 09:00 Temp 36.2 Pulse 84 Resp 18 B/P (MAP) 97/64 (75) Pulse Ox 97 O2 Delivery Room Air Room Air 10/11/22 00:00 Intake Total 50 ml Balance 50 ml Capillary Refill : Constitutional: AAO x 3, well-developed, well-nourished HEENT: hearing is well preserved, oral hygience is good Neck: No carotid bruit; carotid pulses are 2 + bilaterally Respiratory: No accessory muscle use, No respiratory distress; chest expansion is symmetric, chest is bilaterally symmetric, lungs clear to auscultation Cardiovascular: regular rate-rhythm; No JVD; S1 and S2, systolic murmur Gastrointestinal: No tender; soft, round, audible bowel sounds Extremities: no lower extremity edema bilateral Neurologic/Psychiatric: other (LUE and LLE weakness) Skin: No rash on exposed areas, No ulcerations on exposed areas Data Review Labs Laboratory Tests 10/11/22 05:30: Glucometer 133H 10/11/22 05:32: White Blood Count 7.7, Red Blood Count 3.11L, Hemoglobin 9.3L, Hematocrit 29L, Mean Corpuscular Volume 94, Mean Corpuscular Hemoglobin 30, Mean Corpuscular Hemoglobin Concent 32, Red Cell Distribution Width 14.1, Platelet Count 352, Mean Platelet Volume 10.5, Immature Granulocyte % (Auto) 0, Neutrophils (%) (Auto) 54, Lymphocytes (%) (Auto) 28, Monocytes (%) (Auto) 8, Eosinophils (%) (Auto) 8, Basophils (%) (Auto) 2, Neutrophils # (Auto) 4.1, Lymphocytes # (Auto) 2.1, Monocytes # (Auto) 0.6, Eosinophils # (Auto) 0.6H, Basophils # (Auto) 0.1, Immature Granulocyte # (Auto) 0.0, Sodium Level 139, Potassium Level 4.1, Chloride Level 104, Carbon Dioxide Level 23, Anion Gap 12, Blood Urea Nitrogen 52H, Creatinine 1.35H, Estimat Glomerular Filtration Rate 40, BUN/Creatinine Ratio 39, Glucose Level 138H, Calcium Level 9.4, Corrected Calcium 9.7, Total Bilirubin 0.4, Aspartate Amino Transf (AST/SGOT) 19, Alanine Aminotransferase (ALT/SGPT) 17, Alkaline Phosphatase 61, Total Protein 6.6, Albumin 3.6 10/11/22 10:57: Glucometer 172H 10/11/22 16:15: Glucometer 138H A/P-Cardiology Assessment/Admission Diagnosis H/O severe aortic stenosis - S/P TAVR on 09-22-22 in [place], [place] by Dr. Chery No reported h/o CAD - reports she had a cardiac cath by Dr. Chery in [place], [place] prior to TAVR and she reports no coronary dz and a low EF NICM - per pt report and report from [facility] her LVEF is 10-20% and it was also low prior to TAVR H/O acute resp failure on 10-01-22 - Pneumonia, CHF, hypoxia at [facility] after TAVR discharge (10-01-22) - transferred to [facility] in [place], [place] - upon arrival to [facility] it was noted she has left sided facial droop, upper and LE extremity weakness CVA - CT of head on 10-01-22 at [facility] showed acute to subacute infarcts in the right frontal and left parietal region - Dr. Callejas (neurologist at [facility]) note of 10-01-22 states cardioembolic stroke d/t multiple hypodensisties seen on CT (see above) - CTA of the neck on 10-01-[address] [facility] sowed no stenosis of the cervical carotid or vertebral arteries - Eliquis started at [facility] CKD 3 - follows with Dr. 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 Mayfield - continue Eliquis Hypotensive at this time - hold BB and Aldactone for now NICM - not suitable candidate for CORIE or ARB d/t CKD 3 (follows with Dr. Lee of [facility]) Monitor lab Further recs will be based upon her course We will request echo from [facility] and records from Dr. Chery at [facility] We would like to thank Dr. Mayfield for this consult KRISTIN MUNGUIA MD FACP FAC CCDS Oct 11, 2022 16:25
[2022-10-11 19:34] VITALS: BP 149/75
[2022-10-11 20:06] VITALS: BP 97/58
[2022-10-11] MEDS: DULoxetine 30 MG (CYMBALTA) CAP PO SCH (20:38)
[2022-10-11] MEDS: PRAMIPEXOLE 0.5 MG TAB (MIRAPEX) PO SCH (20:38)
[2022-10-11] MEDS: traZODone 50 MG (DESYREL) TAB PO SCH (20:38)
[2022-10-11] MEDS: PRAVASTATIN 20 MG TABLET PO SCH (20:38)
[2022-10-12] MEDS: ACETAMINOPHEN 325 MG TABLET PO PRN ×2 (00:41→17:58)
--- NOTE | 2022-10-12 04:46 | Individualized Plan of Care ---
Individualized Plan of Care Rehab Nursing IPOC Order Admission Date Oct 10, 2022 at 17:10 Current Orders Orders Admission Order(Inpt,Obs,Sdc) (10/10/22 10:55) Vital Signs: Per Unit Policy ( 08,16,00 (10/10/22 10:55) Ralph Torres (10/10/22 10:55) Sequential Compression Device (10/10/22 10:55) Budget Technician-Inpt Rehab Con (10/10/22 10:55) Rehab Nursing Orders-Ipoc (10/10/22 10:55) Physical Therapy Rehab Orders (10/10/22 10:55) Occupational Therapy Rehab Ord (10/10/22 10:55) Speech Therapy Rehab Orders (10/10/22 10:55) Cbc With Automated Diff (10/11/22 06:00) Comprehensive Metabolic Panel (10/11/22 06:00) Precautions (Aru) (10/10/22 10:55) Weekly Weight WEEK (10/10/22 10:55) Calcium Carbonate Chew Tablet (Antacid C (10/10/22 11:00) Diphenhydramine Tablet (Benadryl Tablet) (10/10/22 11:00) Docusate Sodium Capsule (Colace Capsule) (10/10/22 21:00) Docusate Sodium Capsule (Colace Capsule) (10/10/22 11:00) Bisacodyl Suppository (Dulcolax Supposit (10/10/22 11:00) Lactulose Oral Solution (Enulose Oral So (10/10/22 11:00) Na Phos/Na Biphos Enema (Fleet Enema Jeremy (10/10/22 11:00) Guaifenesin/Codeine Syrup (Robitussin Ac (10/10/22 11:00) Loperamide Tablet (Imodium Tablet) (10/10/22 11:00) Melatonin Tablet (Melatonin Tablet) (10/10/22 11:00) Polyethylene Glycol Powder Pkt (Miralax (10/10/22 21:00) Ondansetron Oral Dissolve Tab (Zofran (10/10/22 11:00) Senna S Tablet (Senokot S Tablet) (10/10/22 21:00) Acetaminophen Tablet/Caplet (Tylenol T (10/10/22 11:00) Initiate Admission Nursing Pro .admission (10/10/22 10:55) Rehab-Intensity Of Therapy (10/10/22 10:55) Initiate Admission Nursing Pro .admission (10/10/22 10:55) Alprazolam Tablet (Xanax Tablet) (10/10/22 11:00) Follow-Up Appointment D/C (10/10/22 15:18) Follow-Up Appointment D/C (10/10/22 15:18) Admission Arrival Bed Request (10/10/22 17:11) Heart Healthy (10/10/22 Dinner) Ensure Plus Vanilla (10/10/22 17:47) Apixaban Tablet (Eliquis Tablet) (10/10/22 21:00) Docusate Sodium Capsule (Colace Capsule) (10/10/22 21:00) Duloxetine Capsule (Cymbalta Capsule) (10/10/22 21:00) Empagliflozin Tablet (Jardiance Tablet) (10/11/22 09:00) Furosemide Tablet (Lasix Tablet) (10/11/22 09:00) Loratadine Tablet (Claritin Tablet) (10/11/22 09:00) Meclizine Tablet (Antivert Tablet) (10/10/22 21:00) Metoprolol Succinate (Xl) Tab (Toprol Xl (10/11/22 09:00) Pantoprazole Tablet (Protonix Tablet) (10/11/22 09:00) Polyethylene Glycol Powder Pkt (Miralax (10/10/22 18:30) Spironolactone Tablet (Aldactone Tablet) (10/11/22 09:00) Trazodone Tablet (Desyrel Tablet) (10/10/22 21:00) (Nf) Acetaminophen (Tylenol) (10/10/22 18:30) (Nf) Pramipexole Di-Hcl (Mirapex) (10/10/22 21:00) (Nf) Pravastatin Sodium (10/10/22 21:00) Accucheck Achs ACHS (10/10/22 18:29) Insulin Aspart (Novolog) (Novolog (Charg (10/10/22 21:00) Pramipexole Tablet (Mirapex Tablet) (10/10/22 21:00) Acetaminophen Tablet/Caplet (Tylenol T (10/11/22 00:00) Pravastatin (Non-Formulary) (Pravastatin (10/10/22 21:00) Consult Cardiology (10/11/22 05:26) Ekg Tracing (10/11/22 08:00) Iron Test (Fe) (10/11/22 08:53) Vitamin B 12 (10/11/22 08:53) Code/Resuscitation (10/11/22 11:31) Obtain Records From (Order) (10/11/22 12:36) Patient Visit (10/11/22 ) Speech Sound Lang Comp (10/11/22 ) Treat. Speech/Lang/Voice (10/11/22 ) Acetaminophen Tablet/Caplet (Tylenol T (10/11/22 16:45) Rehab Nursing Orders: Ongoing Assess. of Cognitive Status, Ongoing Assess. of Function Status, Bladder Management, Bladder Scan, Bladder Training, Bowel Management, Bowel Training, Disease Management & Educaiton, DVT Prophylaxis, Fall Prevention, Fluid/Electrolyte/Nutrition Mgmt, Infection Prevention, Medication Management & Education, Management of Risks & Complications, Man agement of Skin Intergrity, Nutrition Management, Pain Management, Patient/Family Support, Safety Management, Swallow Precautions Intensity of Therapy to be met Patient to be seen: Min.3h per day/5 of 7d PT IPOC Problem List: Activity Tolerance, Functional Strength, Safety, Balance, Gait, Transfer, Bed Mobility, ROM Treatment Plan: Continue Plan of Care Bed Mobility, Education, Functional Activity Guera, Functional Strength, Group Therapy, Gait, Safety, Therapeutic Exercise, Transfers Treatment Duration: Oct 25, 2022 Frequency: At least 5 of 7 days/Wk (IRF) Estimated Hrs Per Day: 1.5 hours per day OT IPOC Problems: Decreased Activ Tolerance, Decreased UE Strength, Impaired Coordination, Impaired Funct Balance, Impaired I ADL's, Impaired Self-Care Skills, Restricted Funct UE ROM, Visual-Perceptual Deficit OT Treatment, Training and Edu: Yes Plan of Care: ADL Retraining, Functional Mobility, Group Exercise/Act as Ind, UE Funct Exercise/Act, UE Neuromus Re-Ed/Coord, Visual/Perceptual Retrain Treatment Duration: Nov 04, 2022 Frequency: At least 5 of 7 days/Wk (IRF) Estimated Hrs Per Day: 1.[address] IPOC Speech Therapy Treatment Plan: Discontinue ST Treatment Duration: Oct 11, 2022 Frequency: 1 time per week Estimated Hrs Per Day: .5 hour per day Budget Technician/Case Mgmt Budget Technician/Case Managemen: Discharge Planning Dietitian/Powerhouse Electrician Apprentice Dietitian/Powerhouse Electrician Apprentice to monitor nutritional status and make changes and/or recommendations as needed and work with speech pathology on dietary upgrades as the occur. Physician IPOC Medical Issues being managed closely and that require the 24 hour availability of a physician: Recent embolic CVA following TVAR and subsequent left sided weakness will require close monitoring along with Cardiology due to propensity of pulmonary edema and further decompensation Medical Issues: Bowel/Bladder Function, DVT Prophylaxis, Falls Precautions, Fluid/Electrolyte/Nutrition Balance, Infection Protection, Pain Management, Wound Care Brief Synthesis of Preadmission Screen, Post-Admission Evaluation, and Therapy Evaluations: PT OT will focus on regaining function with use of AD in order to improve ambulation and left sided weakness strengthening in order to return home Medical Prognosis: Good Anticipated Length of Stay: 10 days JARRED COBOS DO Oct 12, 2022 04:46
[2022-10-12] MEDS: inSUlin ASPART (NovoLOG) 1 UNIT/0.01 ML (CHARGE PER UNIT) SC SCH ×4 (06:32→21:17)
[2022-10-12 07:58] VITALS: BP 103/67
--- NOTE | 2022-10-12 08:02 | PM&R Progress Note ---
Subjective HPI/CC On Admission Date Seen by Provider: Oct 12, 2022 Time Seen by Provider: 13:30 Subjective/Events-last exam 10/12/2022: Much improved Moving around well Balance is definitely affected Labs reviewed Cardiology consult appreciated 10/11/2022: Much improved status BM+ No falls No pain reported Reviewed meds and labs Creatinine noted Cardiology consult Review of Systems General: Fatigue, Malaise Objective Exam Vital Signs Vital Signs Date Time Temp Pulse Resp B/P (MAP) Pulse Ox O2 Delivery O2 Flow Rate FiO2 10/12/22 20:19 Room Air 10/12/22 19:32 36.3 113 18 100/55 (70) 97 Capillary Refill : General Appearance: No Apparent Distress, WD/WN, Chronically ill HEENT: PERRL/EOMI, Normal ENT Inspection, Pharynx Normal Neck: Full Range of Motion, Normal Inspection, Non Tender, Supple, Carotid Bruit Respiratory: Chest Non Tender, Lungs Clear, Normal Breath Sounds, No Accessory Muscle Use, No Respiratory Distress, Decreased Breath Sounds Cardiovascular: Regular Rate, Rhythm, No Edema, No Gallop, No JVD, No Murmur, Normal Peripheral Pulses Gastrointestinal: Normal Bowel Sounds, No Organomegaly, No Pulsatile Mass, Non Tender, Soft Back: Normal Inspection, No CVA Tenderness, No Vertebral Tenderness Extremity: Normal Capillary Refill, Normal Inspection, Normal Range of Motion, Non Tender, No Calf Tenderness, No Pedal Edema Neurologic/Psychiatric: Alert, Oriented x3, education manager II-XII Norm as Tested, Abnormal Gait, Depressed Affect, Motor Weakness (left sided weakness) Skin: Normal Color, Warm/Dry Lymphatic: No Adenopathy Results/Procedures Lab Patient resulted labs reviewed. FIM Transfers Therapy Code Descriptions/Definitions Functional [place] Measure: 0=Not Assessed/NA 4=Minimal Assistance 1=Total Assistance 5=Supervision or Setup 2=Maximal Assistance 6=Modified [place] 3=Moderate Assistance 7=Complete IndependenceSCALE: Activities may be completed with or without assistive devices. 7-Hwkmdgtmyp-mdlygsh completes the activity by him/herself with no assistance from a helper. 5-Set-up or Clean-up Assistance-helper sets up or cleans up; patient completes a ctivity. [place] assists only prior to or following the activity. 4-Supervision or Touching Assistance-helper provides verbal cues and/or touching/steadying and/or contact guard assistance as patient completes activity. Assistance may be provided throughout the activity or intermittently. 3-Partial/Moderate Assistance-helper does LESS THAN HALF the effort. [place] lifts, holds or supports trunk or limbs, but provides less than half the effort. 2-Substantial/Maximal Assistance-helper does MORE THAN HALF the effort. [place] lifts or holds trunk or limbs and provides more than half the effort. 1-Yjvbtmyfe-etkenu does ALL the effort. Patient does none of the effort to complete the activity. Or, the assistance of 2 or more helpers is required for the patient to complete the activity. If activity was not attempted, code reason: 7-Patient Refused. 9-Not Applicable-not attempted and the patient did not perform the activity before the current illness, exacerbation or injury. 10-Not Attempted due to Environmental Limitations-(lack of equipment, weather restraints, etc.). 88-Not Attempted due to Medical Conditions or Safety Concerns. Roll Left to Right (QC): 3 Sit to Lying (QC): 3 Sit to Stand (QC): 3 Chair/Hgw-ve-Crdgy Xfer(QC): 4 Car Transfer (QC): 3 Gait Training Does the Patient Walk?: Yes Distance: 50' Walk 10 feet (QC): 4 Walk 50 ft with 2 Turns(QC): 4 Walk 150 ft (QC): 88 Walking 10ft/uneven surface-QC: 88 Gait Persons Needed: 1 Gait Assistive Device: FWW Wheelchair Training Does the Pt Use a Wheelchair?: Yes Distance: 150' Wheel 50 ft with 2 turns (QC): 3 Wheel 150 ft (QC): 3 Type of Wheelchair: Manual Stair Training 1 Step (curb) (QC): 88 4 Steps (QC): 88 12 Steps (QC): 88 Balance Picking up an Object (QC): 3 (min assist using a sugar grinder) ADL-Treatment Eating (QC): 5 (Per pt reprot) Oral Hygiene (QC): 3 (Min A with brushing dentures. Set up with containers and placing toothpaste onto brush) Shower/Bathe Self (QC): 3 (Min A. Assist with washing RUE, min A balance assistance in standing.) Upper Body Dressing (QC): 3 (Mod A donning/doffing pick pulling machine operator long sleeve shirt.) Lower Body Dressing (QC): 3 (Mod A. Pt able to doff pants with Min A standing balance, mod A with donning.) On/Off Footwear (QC): 3 (Mod A, pt able to doff, some assistance to don.) Toileting Hygiene (QC): 3 (Min A. Pt able to manage pants down and perform h ygiene, min A with pant hike, and min A standing balance.) Assessment/Plan Assessment and Plan Assess & Plan/Chief Complaint Assessment: 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 Recent TAVR 09/22/22 Pulmonary edema CKD with PENG Fall risk DM Depression GERD HTN Anemia of chronic illness Plan: OAC PT OT Cardiology consult Monitor kidney function 10/11/2022: Monitor creatinine closely Cardiology consult 10/12/2022: Monitor closely (1) CVA (cerebral vascular accident) JARRED COBOS DO Oct 12, 2022 08:02
--- NOTE | 2022-10-12 08:45 | Occupational Ther Daily Note ---
OT Current Status-Daily Note Subjective Pt up in recliner, agreeable to OT tx. ADL-Treatment Therapy Code Descriptions/Definitions Functional [place] Measure: 0=Not Assessed/NA 4=Minimal Assistance 1=Total Assistance 5=Supervision or Setup 2=Maximal Assistance 6=Modified [place] 3=Moderate Assistance 7=Complete IndependenceSCALE: Activities may be completed with or without assistive devices. 4-Cdholvcrkf-ulgsvqi completes the activity by him/herself with no assistance from a helper. 5-Set-up or Clean-up Assistance-helper sets up or cleans up; patient completes activity. [place] assists only prior to or following the activity. 4-Supervision or Touching Assistance-helper provides verbal cues and/or touching/steadying and/or contact guard assistance as patient completes activity. Assistance may be provided throughout the activity or intermittently. 3-Partial/Moderate Assistance-helper does LESS THAN HALF the effort. [place] lifts, holds or supports trunk or limbs, but provides less than half the effort. 2-Substantial/Maximal Assistance-helper does MORE THAN HALF the effort. [place] lifts or holds trunk or limbs and provides more than half the effort. 9-Dnxjevams-yztjru does ALL the effort. Patient does none of the effort to co mplete the activity. Or, the assistance of 2 or more helpers is required for the patient to complete the activity. If activity was not attempted, code reason: 7-Patient Refused. 9-Not Applicable-not attempted and the patient did not perform the activity before the current illness, exacerbation or injury. 10-Not Attempted due to Environmental Limitations-(lack of equipment, weather restraints, etc.). 88-Not Attempted due to Medical Conditions or Safety Concerns. Eating (QC): 5 Oral Hygiene (QC): 3 (Min A with removing adhesive from dentures during cleaning) Shower/Bathe Self (QC): 4 (CGA in stand) Upper Body Dressing (QC): 3 (Education on giana-technique. Min A overall with doffing/donning.) Lower Body Dressing (QC): 3 (Min A with pant hike on L side.) On/Off Footwear: 3 (Min A with donning/doffing R gripper sock) Other Treatment Pt in recliner, sit to stand with CGA, then transfer onto ME in bathroom, min A for balance with ambulation using FWW. Pt completed bathing and dressing as outlined above, education provided on adaptive/giana techniques for dressing. Pt then sat at sink for grooming tasks, able to comb hair independently, min A with oral care. Pt returned to recliner, min A for balance with FWW and VCs for UE placement with transfers. In order to increase RUE fine motor coordination and neuromuscular reeducation, pt removed pegs from foam pegboard using LUE, able to remove x40 pegs total, rest breaks as needed. Pt states more difficulty as task went on due to fatigue in LUE. Post tx, pt in recliner, call light in reach and all needs met. Education OT Patient Education: Correct positioning, Energy conservation, Modified ADL techniques, Progress toward Goal/Update tx plan, Purpose of tx/functional activities, Rehab process Teaching Recipient: Patient Teaching Methods: Discussion Response to Teaching: Verbalize Understanding OT Short Term Goals Short Term Goals Time Frame: Oct 19, 2022 Toileting hygiene: 4 Shower/bathe self: 4 Upper body dressin Lower body dressin Putting on/taking off footwear: 4 OT Motion Picture Equipment Supervisor Goals Chcf Goals Time Frame: Nov 04, 2022 Acute change in mental status: 0 Inattention: 0 Disorganized thinkin Altered level of consciousness: 0 Eating (QC): 6 Oral Hygiene (QC): 6 Toileting Hygiene (QC): 6 Shower/Bathe Self (QC): 6 Upper Body Dressing (QC): 6 Lower Body Dressing (QC): 6 On/Off Footwear (QC): 6 Additional Goals: 1-Demonstrate ADL Tasks, 2-Verbalize Understanding, 3- ImproveStrength/[place] 1=Demonstrate adherence to instructed precautions during ADL tasks. 2=Patient will verbalize/demonstrate understanding of assistive devices/modifications for ADL. 3=Patient will improve strength/tolerance for activity to enable patient to perform ADL's. OT Education/Plan Problem List/Assessment Assessment: Decreased Activ Tolerance, Decreased UE Strength, Impaired Funct Balance, Impaired I ADL's, Impaired Self-Care Skills, Restricted Funct UE ROM, Visual-Perceptual Deficit Discharge Recommendations Plan/Recommendations: Continue POC Treatment Plan/Plan of Care Patient would benefit from OT for education, treatment and training to promote independence in ADL's, mobility, safety and/or upper extremity function for ADL's. Plan of Care: ADL Retraining, Functional Mobility, Group Exercise/Act as Ind, UE Funct Exercise/Act, UE Neuromus Re-Ed/Coord, Visual/Perceptual Retrain Treatment Duration: Nov 04, 2022 Frequency: At least 5 of 7 days/Wk (IRF) Estimated Hrs Per Day: 1.5 hours per day Rehab Potential: Good Time Start Time: 07:45 Stop Time: 09:00 DATE: Oct 12, 2022 Total Time Billed (hr/min): 75 Billed Treatment Time 1, ADL 4 (60'), FA (15') RENEE FUENTES OT Oct 12, 2022 08:45
[2022-10-12] MEDS: EMPAGLIFLOZIN 10 MG TABLET (JARDIANCE) PO SCH (09:12)
[2022-10-12] MEDS: LORATADINE (CLARITIN) 10 MG TAB PO SCH (09:12)
[2022-10-12] MEDS: APIXABAN 5 MG (ELIQUIS) TABLET PO SCH ×2 (09:12→20:10)
[2022-10-12] MEDS: FUROSEMIDE 20 MG (LASIX) TAB PO SCH (09:12)
[2022-10-12] MEDS: PANTOPRAZOLE 40 MG (PROTONIX) TAB PO SCH (09:12)
[2022-10-12] MEDS: MECLIZINE 25 MG (ANTIVERT) TAB PO SCH ×3 (09:12→20:10)
[2022-10-12] MEDS: DOCUSATE SODIUM 100 MG (COLACE) CAP PO SCH ×2 (09:14→20:12)
[2022-10-12] MEDS: polyethylene glycoL POWDER 17 GM (MIRALAX) PACK PO SCH ×2 (09:15→20:12)
[2022-10-12] MEDS: SENNA W/DOCUSATE (SENOKOT S) TABLET PO SCH ×2 (09:16→20:12)
--- NOTE | 2022-10-12 09:55 | Physical Therapy Daily Note ---
PT Daily Note-Current Subjective Pt. agrees to Rx, asks when she can expect to see more stability and gait indep. No c/o pain. Comments on her vision issues and that PT is fatiguing, she is tired Pain Location: No Pain Reported Section J - Health Conditions 1. Rarely or not at all 2. Occasionally 3. Frequently 4. Almost constantly 8. Unable to answer Pain Effect on Sleep: 1 Pain Interference with Therapy: 1 Pain Interference w/Day-to-Day: 1 Mental Status Patient Orientation: Normal For Age Transfers SCALE: Activities may be completed with or without assistive devices. 8-Clasltxchn-roryzcd completes the activity by him/herself with no assistance from a helper. 5-Set-up or Clean-up Assistance-helper sets up or cleans up; patient completes activity. [place] assists only prior to or following the activity. 4-Supervision or Touching Assistance-helper provides verbal cues and/or touching/steadying and/or contact guard assistance as patient completes activity. Assistance may be provided throughout the activity or intermittently. 3-Partial/Moderate Assistance-helper does LESS THAN HALF the effort. [place] lifts, holds or supports trunk or limbs, but provides less than half the effort. 2-Substantial/Maximal Assistance-helper does MORE THAN HALF the effort. [place] lifts or holds trunk or limbs and provides more than half the effort. 6-Twkbthwqf-rbfugw does ALL the effort. Patient does none of the effort to complete the activity. Or, the assistance of 2 or more helpers is required for the patient to complete the activity. If activity was not attempted, code reason: 7-Patient Refused. 9-Not Applicable-not attempted and the patient did not perform the activity before the current illness, exacerbation or injury. 10-Not Attempted due to Environmental Limitations-(lack of equipment, weather restraints, etc.). 88-Not Attempted due to Medical Conditions or Safety Concerns. Roll Left & Right (QC): 6 Sit to Lying (QC): 4 Lying to Sitting/Side of Bed(Q: 4 Sit to Stand (QC): 3 Chair/Giy-qg-Yqlti Xfer(QC): 3 several LOB episodes with SPTs , required mod to min asst to recover Gait Training Does the Patient Walk?: Yes Walk 10 feet (QC): 3 Walk 50 ft with 2 Turns(QC): 3 Gait Persons Needed: 1 Gait Assistive Device: FWW needs w/c to follow as pt has periods of instability and c/o fatigue Wheelchair Training Does the Pt Use a Wheelchair?: Yes Wheel 50 ft with 2 turns (QC): 3 Type of Wheelchair: Manual needs asst to steer and to maintain LLE foot Exercises Supine Ex: Bridging, Ankle pumps, Quad Set, Rolling, Glut sets, Heel Slides, Short Arc Quads, Scooting, Straight leg raise, Hip abd/add Supine Reps: 12 (x2) Seated Therapy Exercises: Ankle pumps, Sit to stand, Long arc quads, Hip flexi on Seated Reps: 12 Treatments TRFs, therex, gait, w/c mob, balance Assessment Current Status: Fair Progress dependent for all mob PT Auto Vinyl Top Installer Goals Auto Vinyl Top Installer Goals PT Auto Vinyl Top Installer Goals Time Frame: Oct 25, 2022 Roll Left & Right (QC): 4 (SBA) Sit to Lying (QC): 4 (SBA) Lying-Sitting on Side/Bed(QC): 4 (SBA) Sit to Stand (QC): 4 (CGA) Chair/Guh-fn-Pnkdu Xfer(QC): 4 (CGA) Toilet Transfer (QC): 4 (CGA) Car Transfer (QC): 4 (CGA) Does the Patient Walk: Yes Walk 10 feet (QC): 4 (CGA) Walk 50ft with 2 Turns (QC): 4 (CGA) Walk 150 ft (QC): 4 (CGA) Walking 10ft on Uneven Surface: 4 (CGA) 1 Step (curb) (QC): 4 (CGA) 4 Steps (QC): 4 (CGA) 12 Steps (QC): 88 Picking up an Object (QC): 4 (SBA using experimental plastics fabricator) Wheel 50 feet with 2 turns (QC: 5 Wheel 150 feet: 5 PT Plan Treatment/Plan Treatment Plan: Continue Plan of Care Treatment Plan: Bed Mobility, Education, Functional Activity [place], Functional Strength, Group Therapy, Gait, Safety, Therapeutic Exercise, Transfers Treatment Duration: Oct 25, 2022 Frequency: At least 5 of 7 days/Wk (IRF) Estimated Hrs Per Day: 1.5 hours per day Patient and/or Family Agrees t: Yes Safety Risks/Education Patient Education: Gait Training, Transfer Techniques, Correct Positioning, W/C Management, Disease Process, Safety Issues Teaching Recipient: Patient Teaching Methods: Demonstration, Discussion Response to Teaching: Verbalize Understanding, Return Demonstration, Reinforcement Needed Time Time In: 900 Time Out: 1000 DATE: Oct 12, 2022 Total Billed Treatment Time: 60 Total Billed Treatment 1,GT20m,FA25m,EX15m MIKE MORLEY PTA Oct 12, 2022 09:54
[2022-10-12] MEDS ORDERED: DIGOXIN 0.125 MG (LANOXIN) TAB PO NR (10:00)
--- NOTE | 2022-10-12 11:53 | Physical Therapy Daily Note ---
PT Daily Note-Current Subjective Pt. in recliner, speaks of the arrangements she might make to live with a daughter [place]ft[place]. Agrees to Rx. Pain Location: No Pain Reported Section J - Health Conditions 1. Rarely or not at all 2. Occasionally 3. Frequently 4. Almost constantly 8. Unable to answer Pain Effect on Sleep: 1 Pain Interference with Therapy: 1 Pain Interference w/Day-to-Day: 1 Mental Status Patient Orientation: Normal For Age Transfers SCALE: Activities may be completed with or without assistive devices. 0-Nzdmhiytrk-cqxljwq completes the activity by him/herself with no assistance from a helper. 5-Set-up or Clean-up Assistance-helper sets up or cleans up; patient completes activity. [place] assists only prior to or following the activity. 4-Supervision or Touching Assistance-helper provides verbal cues and/or touching/steadying and/or contact guard assistance as patient completes activity. Assistance may be provided throughout the activity or intermittently. 3-Partial/Moderate Assistance-helper does LESS THAN HALF the effort. [place] lifts, holds or supports trunk or limbs, but provides less than half the effort. 2-Substantial/Maximal Assistance-helper does MORE THAN HALF the effort. [place] lifts or holds trunk or limbs and provides more than half the effort. 6-Zpqarqtxm-njkodr does ALL the effort. Patient does none of the effort to complete the activity. Or, the assistance of 2 or more helpers is required for the patient to complete the activity. If activity was not attempted, code reason: 7-Patient Refused. 9-Not Applicable-not attempted and the patient did not perform the activity before the current illness, exacerbation or injury. 10-Not Attempted due to Environmental Limitations-(lack of equipment, weather restraints, etc.). 88-Not Attempted due to Medical Conditions or Safety Concerns. Sit to Stand (QC): 4 Chair/Ljk-qd-Scsik Xfer(QC): 3 Gait Training Does the Patient Walk?: Yes Walk 10 feet (QC): 3 Walk 50 ft with 2 Turns(QC): 3 Gait Persons Needed: 1 Gait Assistive Device: FWW emphasis on control and safety , ataxic gait, requires assist to affix left hand on FWW as well as guide FWW. Exercises Seated Therapy Exercises: Ankle pumps, Sit to stand, Long arc quads, Hip abd/add Seated Reps: 15 Treatments sit to stands, short gait bouts and many turns, balance, control etc Assessment Current Status: Good Progress PT Raw Scales Operator Goals Fdc Goals PT Raw Scales Operator Goals Time Frame: Oct 25, 2022 Roll Left & Right (QC): 4 (SBA) Sit to Lying (QC): 4 (SBA) Lying-Sitting on Side/Bed(QC): 4 (SBA) Sit to Stand (QC): 4 (CGA) Chair/Nrs-zq-Wbkys Xfer(QC): 4 (CGA) Toilet Transfer (QC): 4 (CGA) Car Transfer (QC): 4 (CGA) Does the Patient Walk: Yes Walk 10 feet (QC): 4 (CGA) Walk 50ft with 2 Turns (QC): 4 (CGA) Walk 150 ft (QC): 4 (CGA) Walking 10ft on Uneven Surface: 4 (CGA) 1 Step (curb) (QC): 4 (CGA) 4 Steps (QC): 4 (CGA) 12 Steps (QC): 88 Picking up an Object (QC): 4 (SBA using family medicine physician assistant) Wheel 50 feet with 2 turns (QC: 5 Wheel 150 feet: 5 PT Plan Treatment/Plan Treatment Plan: Continue Plan of Care Treatment Plan: Bed Mobility, Education, Functional Activity Guera, Functional Strength, Group Therapy, Gait, Safety, Therapeutic Exercise, Transfers Treatment Duration: Oct 25, 2022 Frequency: At least 5 of 7 days/Wk (IRF) Estimated Hrs Per Day: 1.5 hours per day Patient and/or Family Agrees t: Yes Safety Risks/Education Patient Education: Gait Training, Transfer Techniques, Correct Positioning, Disease Process, Safety Issues Teaching Recipient: Patient Teaching Methods: Demonstration, Discussion Response to Teaching: Verbalize Understanding, Return Demonstration, Reinforcement Needed Time Time In: 1115 Time Out: 1145 DATE: Oct 12, 2022 Total Billed Treatment Time: 30 Total Billed Treatment 1,GT30m MIKE MORLEY PHYSICIAN SUPPORT COORDINATOR Oct 12, 2022 11:53
--- NOTE | 2022-10-12 12:30 | Progress Note - Cardiology ---
Cardiology SOAP Progress Note Subjective: Gen weakness and malaise L-sided weakness No n/v/d Dizziness present No cp or pal or syncope or shortness of breath No swelling Objective: I&O/Vital Signs 10/12/22 10/12/22 07:58 09:57 Temp 36.0 Pulse 95 Resp 14 B/P (MAP) 103/67 (79) Pulse Ox 99 O2 Delivery Room Air Room Air 10/12/22 00:00 Intake Total 1080 ml Balance 1080 ml Constitutional: AAO x 3, well-developed, well-nourished Respiratory: No accessory muscle use, No respiratory distress; chest expansion is symmetric, chest is bilaterally symmetric, lungs clear to auscultation Cardiovascular: regular rate-rhythm; No JVD; S1 and S2, systolic murmur Gastrointestional: No tender; soft, round, audible bowel sounds Extremities: no lower extremity edema bilateral Neurologic/Psychiatric: other (LUE and LLE weakness) Skin: No rash on exposed areas, No ulcerations on exposed areas Results/Procedures: Labs Laboratory Tests 10/11/22 16:15: Glucometer 138H 10/11/22 20:05: Glucometer 225H 10/12/22 06:22: Glucometer 106 10/12/22 11:03: Glucometer 121H Laboratory Tests 10/11/22 05:32 A/P: Assessment: H/O severe aortic stenosis - S/P TAVR on 09-22-22 in [place], [place] by Dr. Chery No reported h/o CAD - reports she had a cardiac cath by Dr. Chery in [place], [place] prior to TAVR and she reports no coronary dz and a low EF NICM - per pt report and report from [facility] her LVEF is 10-20% and it was also low prior to TAVR H/O acute resp failure on 10-01-22 - Pneumonia, CHF, hypoxia at [facility] after TAVR discharge (10-01-22) - transferred to [facility] in [place], [place] - upon arrival to [facility] it was noted she has left sided facial droop, upper and LE extremity weakness CVA - CT of head on 10-01-22 at [facility] showed acute to subacute infarcts in the right frontal and left parietal region - Dr. 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 Lee of nephrology services Reported h/o HTN, however has been hypotensive HLD DM 2 Plan: * Records from [facility] reviewed * Continue Eliquis * Add dig * Heart failure meds if bp and renal function allow * Monitor labs KRISTIN MUNGUIA MD FACP FAC CCDS Oct 12, 2022 12:30
--- NOTE | 2022-10-12 12:49 | Occupational Ther Daily Note ---
OT Current Status-Daily Note Subjective Pt in bed, agreeable to OT tx. Mental Status/Objective Patient Orientation: Normal For Age ADL-Treatment Therapy Code Descriptions/Definitions Functional [place] Measure: 0=Not Assessed/NA 4=Minimal Assistance 1=Total Assistance 5=Supervision or Setup 2=Maximal Assistance 6=Modified [place] 3=Moderate Assistance 7=Complete IndependenceSCALE: Activities may be completed with or without assistive devices. 5-Iygssrxmeb-wflsnjx completes the activity by him/herself with no assistance from a helper. 5-Set-up or Clean-up Assistance-helper sets up or cleans up; patient completes activity. [place] assists only prior to or following the activity. 4-Supervision or Touching Assistance-helper provides verbal cues and/or touching/steadying and/or contact guard assistance as patient completes activity. Assistance may be provided throughout the activity or intermittently. 3-Partial/Moderate Assistance-helper does LESS THAN HALF the effort. [place] lifts, holds or supports trunk or limbs, but provides less than half the effort. 2-Substantial/Maximal Assistance-helper does MORE THAN HALF the effort. [place] lifts or holds trunk or limbs and provides more than half the effort. 5-Rfjvivfyr-tdbsrt does ALL the effort. Patient does none of the effort to complete the activity. Or, the assistance of 2 or more helpers is required for the patient to complete the activity. If activity was not attempted, code reason: 7-Patient Refused. 9-Not Applicable-not attempted and the patient did not perform the activity before the current illness, exacerbation or injury. 10-Not Attempted due to Environmental Limitations-(lack of equipment, weather restraints, etc.). 88-Not Attempted due to Medical Conditions or Safety Concerns. Other Treatment Pt in bed, agreeable to OT tx with focus on LUE neuromuscular reeducation and LUE exercises. Pt completed x10 reps each of the following AAROM LUE: shoulder flexion, elbow flexion/extension, wrist flexion/extension, finger flexion/extension, and pronation/supination. Pt required more assistance with shoulder flexion compared with other movements. OT Short Term Goals Short Term Goals Time Frame: Oct 19, 2022 Toileting hygiene: 4 Shower/bathe self: 4 Upper body dressin Lower body dressin Putting on/taking off footwear: 4 OT Shoe Packer Goals Shoe Packer Goals Time Frame: Nov 04, 2022 Acute change in mental status: 0 Inattention: 0 Disorganized thinkin Altered level of consciousness: 0 Eating (QC): 6 Oral Hygiene (QC): 6 Toileting Hygiene (QC): 6 Shower/Bathe Self (QC): 6 Upper Body Dressing (QC): 6 Lower Body Dressing (QC): 6 On/Off Footwear (QC): 6 Additional Goals: 1-Demonstrate ADL Tasks, 2-Verbalize Understanding, 3- ImproveStrength/[place]era 1=Demonstrate adherence to instructed precautions during ADL tasks. 2=Patient will verbalize/demonstrate understanding of assistive devices/modifications for ADL. 3=Patient will improve strength/tolerance for activity to enable patient to perform ADL's. OT Education/Plan Discharge Recommendations Plan/Recommendations: Continue POC Treatment Plan/Plan of Care Patient would benefit from OT for education, treatment and training to promote independence in ADL's, mobility, safety and/or upper extremity function for ADL's. Plan of Care: ADL Retraining, Functional Mobility, Group Exercise/Act as Ind, UE Funct Exercise/Act, UE Neuromus Re-Ed/Coord, Visual/Perceptual Retrain Treatment Duration: Nov 04, 2022 Frequency: At least 5 of 7 days/Wk (IRF) Estimated Hrs Per Day: 1.5 hours per day Rehab Potential: Good Time Start Time: 12:40 Stop Time: 12:55 DATE: Oct 12, 2022 Total Time Billed (hr/min): 15 Billed Treatment Time 1, EX RENEE FUENTES OT Oct 12, 2022 12:49
[2022-10-12] MEDS ORDERED: HYDROcodone/APAP 5 MG/325 MG (LORTAB) TAB PO PRN (13:15)
[2022-10-12] MEDS ORDERED: ASPI-1238 PO (14:15)
[2022-10-12] MEDS ORDERED: PRAM0.5T9 PO (14:15)
[2022-10-12] MEDS ORDERED: FEXO180T84 PO (14:16)
[2022-10-12] MEDS ORDERED: METF-397 PO (14:24)
[2022-10-12] MEDS ORDERED: LISI20TA26 PO (14:34)
[2022-10-12] MEDS ORDERED: LOSA50TA63 PO (14:34)
[2022-10-12 19:32] VITALS: BP 100/55
[2022-10-12] MEDS: DULoxetine 30 MG (CYMBALTA) CAP PO SCH (20:10)
[2022-10-12] MEDS: PRAVASTATIN 20 MG TABLET PO SCH (20:10)
[2022-10-12] MEDS: PRAMIPEXOLE 0.5 MG TAB (MIRAPEX) PO SCH (20:10)
[2022-10-12] MEDS: traZODone 50 MG (DESYREL) TAB PO SCH (20:10)
--- NOTE | 2022-10-13 04:54 | PM&R Progress Note ---
Subjective HPI/CC On Admission Date Seen by Provider: Oct 13, 2022 Time Seen by Provider: 10:00 Subjective/Events-last exam 10/13/2022: Doing well No pain reported BM regimen maintained No falls Balance focus via therapy 10/12/2022: Much improved Moving around well Balance is definitely affected Labs reviewed Cardiology consult appreciated 10/11/2022: Much improved status BM+ No falls No pain reported Reviewed meds and labs Creatinine noted Cardiology consult Review of Systems General: Fatigue, Malaise Objective Exam Vital Signs Vital Signs Date Time Temp Pulse Resp B/P (MAP) Pulse Ox O2 Delivery O2 Flow Rate FiO2 10/13/22 20:28 36.5 99 18 107/55 (72) 97 Room Air Capillary Refill : General Appearance: No Apparent Distress, WD/WN, Chronically ill HEENT: PERRL/EOMI, Normal ENT Inspection, Pharynx Normal Neck: Full Range of Motion, Normal Inspection, Non Tender, Supple, Carotid Bruit Respiratory: Chest Non Tender, Lungs Clear, Normal Breath Sounds, No Accessory Muscle Use, No Respiratory Distress, Decreased Breath Sounds Cardiovascular: Regular Rate, Rhythm, No Edema, No Gallop, No JVD, No Murmur, Normal Peripheral Pulses Gastrointestinal: Normal Bowel Sounds, No Organomegaly, No Pulsatile Mass, Non Tender, Soft Back: Normal Inspection, No CVA Tenderness, No Vertebral Tenderness Extremity: Normal Capillary Refill, Normal Inspection, Normal Range of Motion, Non Tender, No Calf Tenderness, No Pedal Edema Neurologic/Psychiatric: Alert, Oriented x3, manager hair II-XII Norm as Tested, Abnormal Gait, Depressed Affect, Motor Weakness (left sided weakness) Skin: Normal Color, Warm/Dry Lymphatic: No Adenopathy Results/Procedures Lab Patient resulted labs reviewed. FIM Transfers Therapy Code Descriptions/Definitions Functional [place] Measure: 0=Not Assessed/NA 4=Minimal Assistance 1=Total Assistance 5=Supervision or Setup 2=Maximal Assistance 6=Modified [place] 3=Moderate Assistance 7=Complete IndependenceSCALE: Activities may be completed with or without assistive devices. 0-Tgefsujhyw-ifdyeao completes the activity by him/herself with no assistance from a helper. 5-Set-up or Clean-up Assistance-helper sets up or cleans up; patient completes activity. [place] assists only prior to or following the activity. 4-Supervision or Touching Assistance-helper provides verbal cues and/or touching/steadying and/or contact guard assistance as patient completes activity. Assistance may be provided throughout the activity or intermittently. 3-Partial/Moderate Assistance-helper does LESS THAN HALF the effort. [place] lifts, holds or supports trunk or limbs, but provides less than half the effort. 2-Substantial/Maximal Assistance-helper does MORE THAN HALF the effort. [place] lifts or holds trunk or limbs and provides more than half the effort. 6-Uoipnwqxx-kskdwu does ALL the effort. Patient does none of the effort to complete the activity. Or, the assistance of 2 or more helpers is required for the patient to complete the activity. If activity was not attempted, code reason: 7-Patient Refused. 9-Not Applicable-not attempted and the patient did not perform the activity before the current illness, exacerbation or injury. 10-Not Attempted due to Environmental Limitations-(lack of equipment, weather restraints, etc.). 88-Not Attempted due to Medical Conditions or Safety Concerns. Roll Left to Right (QC): 6 Sit to Lying (QC): 4 Sit to Stand (QC): 4 Chair/Ftl-ih-Jhycv Xfer(QC): 3 Car Transfer (QC): 3 Gait Training Does the Patient Walk?: Yes Distance: 50' Walk 10 feet (QC): 3 Walk 50 ft with 2 Turns(QC): 3 Walk 150 ft (QC): 88 Walking 10ft/uneven surface-QC: 88 Gait Persons Needed: 1 Gait Assistive Device: FWW Wheelchair Training Does the Pt Use a Wheelchair?: Yes Distance: 150' Wheel 50 ft with 2 turns (QC): 3 Wheel 150 ft (QC): 3 Type of Wheelchair: Manual Stair Training 1 Step (curb) (QC): 88 4 Steps (QC): 88 12 Steps (QC): 88 Balance Picking up an Object (QC): 3 (min assist using a injection molding supervisor) ADL-Treatment Eating (QC): 5 Oral Hygiene (QC): 3 (Min A with removing adhesive from dentures during cleaning) Shower/Bathe Self (QC): 4 (CGA in stand) Upper Body Dressing (QC): 3 (Education on giana-technique. Min A overall with doffing/donning.) Lower Body Dressing (QC): 3 (Min A with pant hike on L side.) On/Off Footwear (QC): 3 (Min A with donning/doffing R gripper sock) Toileting Hygiene (QC): 3 (Min A. 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
[2022-10-13] MEDS: inSUlin ASPART (NovoLOG) 1 UNIT/0.01 ML (CHARGE PER UNIT) SC SCH ×4 (06:22→20:46)
[2022-10-13] MEDS: PANTOPRAZOLE 40 MG (PROTONIX) TAB PO SCH (07:43)
[2022-10-13] MEDS: MECLIZINE 25 MG (ANTIVERT) TAB PO SCH ×3 (07:43→20:44)
[2022-10-13] MEDS: EMPAGLIFLOZIN 10 MG TABLET (JARDIANCE) PO SCH (07:43)
[2022-10-13] MEDS: DIGOXIN 0.125 MG (LANOXIN) TAB PO SCH (07:43)
[2022-10-13] MEDS: FUROSEMIDE 20 MG (LASIX) TAB PO SCH (07:44)
[2022-10-13] MEDS: LORATADINE (CLARITIN) 10 MG TAB PO SCH (07:44)
[2022-10-13] MEDS: APIXABAN 5 MG (ELIQUIS) TABLET PO SCH ×2 (07:44→20:44)
[2022-10-13] MEDS: DOCUSATE SODIUM 100 MG (COLACE) CAP PO SCH ×2 (07:44→20:44)
[2022-10-13 08:05] VITALS: BP 113/74
--- NOTE | 2022-10-13 08:13 | Occupational Ther Daily Note ---
OT Current Status-Daily Note Subjective Pt up in recliner, agreeable to OT Tx. Pt states she didn't sleep well last night. ADL-Treatment Therapy Code Descriptions/Definitions Functional [place] Measure: 0=Not Assessed/NA 4=Minimal Assistance 1=Total Assistance 5=Supervision or Setup 2=Maximal Assistance 6=Modified [place] 3=Moderate Assistance 7=Complete IndependenceSCALE: Activities may be completed with or without assistive devices. 6-Yhtmrbnbfx-sdatfvn completes the activity by him/herself with no assistance from a helper. 5-Set-up or Clean-up Assistance-helper sets up or cleans up; patient completes activity. [place] assists only prior to or following the activity. 4-Supervision or Touching Assistance-helper provides verbal cues and/or touching/steadying and/or contact guard assistance as patient completes activity. Assistance may be provided throughout the activity or intermittently. 3-Partial/Moderate Assistance-helper does LESS THAN HALF the effort. [place] lifts, holds or supports trunk or limbs, but provides less than half the effort. 2-Substantial/Maximal Assistance-helper does MORE THAN HALF the effort. [place] lifts or holds trunk or limbs and provides more than half the effort. 5-Bsiojqtxt-kzgnfy does ALL the effort. Patient does none of the effort to complete the activity. Or, the assistance of 2 or more helpers is required for the patient to complete the activity. If activity was not attempted, code reason: 7-Patient Refused. 9-Not Applicable-not attempted and the patient did not perform the activity before the current illness, exacerbation or injury. 10-Not Attempted due to Environmental Limitations-(lack of equipment, weather restraints, etc.). 88-Not Attempted due to Medical Conditions or Safety Concerns. Toileting Hygiene (QC): 3 (Min A with pant hike.) Toilet Transfer (QC): 3 (Min A. VCs for hand placement with transfer.) Other Treatment [facility], then used FWW to transfer into bathroom, min A with balance. Pt completed toileting, min A with pant hike, VCs to use GBs instead of pulling up on walker with stand. Pt sat at sink to comb hair and perform hand hygiene, then transferred to w/c. Pt propelled w/c to therapy gym using RUE and BLEs, VCs required to supervisor picking crew L foot with mobility as pt tends to drag foot behind her, min A with maintaining straight path and through doors. OT Tx focused on neuromuscular reeducation of LUE, fine motor strength/coordination, and overall activity tolerance. Pt completed arm bike x15 Watt resistance, x10 mins, rest breaks as needed. Pt then removed 1" pegs from foam pegboard using LUE, able to remove x50 total, rest breaks as needed due to fatigue. Pt dropped x4 pegs during task. Pt propelled w/c back to her room, min A, VCs and gestures to locate room located on L side. Min A transfer to recliner using FWW. Post tx, pt in recliner, call light in reach and all needs met, chair alarm activated. Education OT Patient Education: Correct positioning, Energy conservation, Exercise program, Modified ADL techniques, Progress toward Goal/Update tx plan, Purpose of tx/functional activities, Rehab process Teaching Recipient: Patient Teaching Methods: Discussion Response to Teaching: Verbalize Understanding OT Short Term Goals Short Term Goals Time Frame: Oct 19, 2022 Toileting hygiene: 4 Shower/bathe self: 4 Upper body dressin Lower body dressin Putting on/taking off footwear: 4 OT Fence Builder Goals Fence Builder Goals Time Frame: Nov 04, 2022 Acute change in mental status: 0 Inattention: 0 Disorganized thinkin Altered level of consciousness: 0 Eating (QC): 6 Oral Hygiene (QC): 6 Toileting Hygiene (QC): 6 Shower/Bathe Self (QC): 6 Upper Body Dressing (QC): 6 Lower Body Dressing (QC): 6 On/Off Footwear (QC): 6 Additional Goals: 1-Demonstrate ADL Tasks, 2-Verbalize Understanding, 3- ImproveStrength/[place] 1=Demonstrate adherence to instructed precautions during ADL tasks. 2=Patient will verbalize/demonstrate understanding of assistive devices/modifications for ADL. 3=Patient will improve strength/tolerance for activity to enable patient to perform ADL's. OT Education/Plan Problem List/Assessment Assessment: Decreased Activ Tolerance, Decreased UE Strength, Impaired Funct Balance, Impaired I ADL's, Impaired Self-Care Skills, Restricted Funct UE ROM, Visual-Perceptual Deficit Discharge Recommendations Plan/Recommendations: Continue POC Treatment Plan/Plan of Care Patient would benefit from OT for education, treatment and training to promote independence in ADL's, mobility, safety and/or upper extremity function for ADL's. Plan of Care: ADL Retraining, Functional Mobility, Group Exercise/Act as Ind, UE Funct Exercise/Act, UE Neuromus Re-Ed/Coord, Visual/Perceptual Retrain Treatment Duration: Nov 04, 2022 Frequency: At least 5 of 7 days/Wk (IRF) Estimated Hrs Per Day: 1.5 hours per day Rehab Potential: Good Time Start Time: 07:45 Stop Time: 09:00 DATE: Oct 13, 2022 Total Time Billed (hr/min): 75 Billed Treatment Time 1, ADL (15'), NM 4 (60') RENEE FUENTES OT Oct 13, 2022 08:13
[2022-10-13] MEDS: polyethylene glycoL POWDER 17 GM (MIRALAX) PACK PO SCH ×2 (08:34→20:45)
[2022-10-13] MEDS: SENNA W/DOCUSATE (SENOKOT S) TABLET PO SCH ×2 (08:34→20:45)
[2022-10-13] MEDS: SPIRONOLACTONE 25 MG (ALDACTONE) TAB PO SCH (08:34)
--- NOTE | 2022-10-13 09:48 | Progress Note - Cardiology ---
Cardiology SOAP Progress Note Subjective: Up with PT States tired this morning, but otherwise feels well No c/o CP, palpitations, syncope, near syncope or dyspnea Feels positional dizziness has resolved Objective: I&O/Vital Signs 10/14/22 10/14/22 07:44 07:45 Temp 35.8 35.8 Pulse 89 89 Resp 16 16 B/P (MAP) 116/55 (75) 116/55 (75) Pulse Ox 96 96 O2 Delivery Room Air Room Air 10/14/22 00:00 Intake Total 880 ml Balance 880 ml Constitutional: AAO x 3, well-developed, well-nourished Respiratory: No accessory muscle use, No respiratory distress; chest expansion is symmetric, chest is bilaterally symmetric, lungs clear to auscultation Cardiovascular: regular rate-rhythm; No JVD; S1 and S2, systolic murmur Gastrointestional: No tender; soft, round, audible bowel sounds Extremities: no lower extremity edema bilateral Neurologic/Psychiatric: other (LUE and LLE weakness) Skin: No rash on exposed areas, No ulcerations on exposed areas Results/Procedures: Labs Laboratory Tests 10/13/22 15:35: Glucometer 162H 10/13/22 20:18: Glucometer 197H 10/14/22 05:00: Sodium Level 139, Potassium Level 3.8, Chloride Level 102, Carbon Dioxide Level 23, Anion Gap 14, Blood Urea Nitrogen 48H, Creatinine 1.25, Estimat Glomerular Filtration Rate 44, BUN/Creatinine Ratio 38, Glucose Level 124H, Calcium Level 9.4, Digoxin Level 0.36L A/P: Assessment: H/O severe aortic stenosis - S/P TAVR on 09-22-22 in [place], [place] by Dr. Chery No reported h/o CAD - reports she had a cardiac cath by Dr. Chery in [place], [place] prior to TAVR and she reports no coronary dz and a low EF NICM - per pt report and report from [facility] her LVEF is 10-20% and it was also low prior to TAVR H/O acute resp failure on 10-01-22 - Pneumonia, CHF, hypoxia at [facility] after TAVR discharge (10-01-22) - transferred to [facility] in [place], [place] - upon arrival to [facility] it was noted she has left sided facial droop, upper and LE extremity weakness CVA - CT of head on 10-01-22 at [facility] showed acute to subacute infarcts in the right frontal and left parietal region - Dr. Callejas (neurologist at [facility]) note of 10-01-22 states cardioembolic stroke d/t multiple hypodensisties seen on CT (see above) - CTA of the neck on 10-01-22 at [facility] sowed no stenosis of the cervical carotid or vertebral arteries - Eliquis started at [facility] CKD 3 - follows with Dr. Lee of nephrology services Reported h/o HTN, however has been hypotensive - improved following reduction in medications HLD DM 2 Plan: * BP has improved a this time - start low dose Coreg and titrate as tolerated * Continue Eliquis * Continue dig and check dig level in the morning * Heart failure meds if bp and renal function allow * Monitor labs MAURICIO MARTIN Oct 13, 2022 09:48
--- NOTE | 2022-10-13 09:59 | Physical Therapy Daily Note ---
PT Daily Note-Current Subjective Pt. agrees to Rx and states she sees progress today and feels more hopeful for a better recovery. No c/o pain Pain Location: No Pain Reported Section J - Health Conditions 1. Rarely or not at all 2. Occasionally 3. Frequently 4. Almost constantly 8. Unable to answer Pain Effect on Sleep: 1 Pain Interference with Therapy: 1 Pain Interference w/Day-to-Day: 1 Mental Status Patient Orientation: Normal For Age Transfers SCALE: Activities may be completed with or without assistive devices. 0-Cjztggttgk-cmusyqh completes the activity by him/herself with no assistance from a helper. 5-Set-up or Clean-up Assistance-helper sets up or cleans up; patient completes activity. [place] assists only prior to or following the activity. 4-Supervision or Touching Assistance-helper provides verbal cues and/or touching/steadying and/or contact guard assistance as patient completes activity. Assistance may be provided throughout the activity or intermittently. 3-Partial/Moderate Assistance-helper does LESS THAN HALF the effort. [place] lifts, holds or supports trunk or limbs, but provides less than half the effort. 2-Substantial/Maximal Assistance-helper does MORE THAN HALF the effort. [place] lifts or holds trunk or limbs and provides more than half the effort. 1-Qchkgqjvn-wjmtpg does ALL the effort. Patient does none of the effort to complete the activity. Or, the assistance of 2 or more helpers is required for the patient to complete the activity. If activity was not attempted, code reason: 7-Patient Refused. 9-Not Applicable-not attempted and the patient did not perform the activity before the current illness, exacerbation or injury. 10-Not Attempted due to Environmental Limitations-(lack of equipment, weather restraints, etc.). 88-Not Attempted due to Medical Conditions or Safety Concerns. Roll Left & Right (QC): 6 Sit to Stand (QC): 4 Chair/Aij-zk-Ptkwk Xfer(QC): 4 emphasis on 90 deg SPTs going toward right mostly and some left . pt. improved moving toward right from mod assist to CGA, going left requires mod assist, sit to stands improved to CGA 70% time and min assist 30% time Gait Training Does the Patient Walk?: Yes Walk 10 feet (QC): 3 Walk 50 ft with 2 Turns(QC): 3 Gait Persons Needed: 1 Gait Assistive Device: FWW pt. requires full assist to advance FWW and assist to maintain stability , ataxic poor control LLE and needs direction for left foot placement each step. 25 ft x 2 FWW Wheelchair Training Does the Pt Use a Wheelchair?: Yes Type of Wheelchair: Manual needs mod asst 25 ft, unable to guide, needs mod to max asst Exercises Supine Ex: Bridging, Quad Set, Glut sets, Heel Slides, Short Arc Quads, Scooting, Straight leg raise, Hip abd/add Supine Reps: 15 NuStep Minutes: 8 NuStep Workload: 1 Treatments TRFs, coordination , gait, w/c mob, LE ex Assessment Current Status: Good Progress PT Care Home Goals Nurse Wound Care Goals PT Care Home Goals Time Frame: Oct 25, 2022 Roll Left & Right (QC): 4 (SBA) Sit to Lying (QC): 4 (SBA) Lying-Sitting on Side/Bed(QC): 4 (SBA) Sit to Stand (QC): 4 (CGA) Chair/Dtk-ii-Szfsy Xfer(QC): 4 (CGA) Toilet Transfer (QC): 4 (CGA) Car Transfer (QC): 4 (CGA) Does the Patient Walk: Yes Walk 10 feet (QC): 4 (CGA) Walk 50ft with 2 Turns (QC): 4 (CGA) Walk 150 ft (QC): 4 (CGA) Walking 10ft on Uneven Surface: 4 (CGA) 1 Step (curb) (QC): 4 (CGA) 4 Steps (QC): 4 (CGA) 12 Steps (QC): 88 Picking up an Object (QC): 4 (SBA using aerial advertiser) Wheel 50 feet with 2 turns (QC: 5 Wheel 150 feet: 5 PT Plan Treatment/Plan Treatment Plan: Continue Plan of Care Treatment Plan: Bed Mobility, Education, Functional Activity [place], Functional Strength, Group Therapy, Gait, Safety, Therapeutic Exercise, Transfers Treatment Duration: Oct 25, 2022 Frequency: At least 5 of 7 days/Wk (IRF) Estimated Hrs Per Day: 1.5 hours per day Patient and/or Family Agrees t: Yes Safety Risks/Education Patient Education: Gait Training, Transfer Techniques, Correct Positioning, W/C Management, Disease Process, Safety Issues Teaching Recipient: Patient Teaching Methods: Demonstration, Discussion Response to Teaching: Verbalize Understanding, Return Demonstration, Reinforcement Needed Time Time In: 900 Time Out: 1000 DATE: Oct 13, 2022 Total Billed Treatment Time: 60 Total Billed Treatment 1,GT20m,EX15m,FA25m MIKE MORLEY ACCOUNT ASSOCIATE Oct 13, 2022 09:59
[2022-10-13 10:14] VITALS: BP 108/54
--- NOTE | 2022-10-13 12:42 | Progress Note - Cardiology ---
Cardiology SOAP Progress Note Subjective: No cp or palp or syncope Gen and focal weakness as before No swelling No n/v/d Objective: I&O/Vital Signs 10/13/22 10/13/22 08:05 10:14 Temp 35.6 Pulse 106 105 Resp 16 B/P (MAP) 113/74 (87) 108/54 (72) Pulse Ox 99 O2 Delivery Room Air 10/13/22 00:00 Intake Total 1220 ml Balance 1220 ml Constitutional: AAO x 3, well-developed, well-nourished Respiratory: No accessory muscle use, No respiratory distress; chest expansion is symmetric, chest is bilaterally symmetric, lungs clear to auscultation Cardiovascular: regular rate-rhythm; No JVD; S1 and S2, systolic murmur Gastrointestional: No tender; soft, round, audible bowel sounds Extremities: no lower extremity edema bilateral Neurologic/Psychiatric: other (LUE and LLE weakness) Skin: No rash on exposed areas, No ulcerations on exposed areas Results/Procedures: Labs Laboratory Tests 10/12/22 16:30: Glucometer 221H 10/13/22 06:17: Glucometer 134H A/P: Assessment: H/O severe aortic stenosis - S/P TAVR on 09-22-22 in [place], [place] by Dr. Chery No reported h/o CAD - reports she had a cardiac cath by Dr. Chery in [place], [place] prior to TAVR and she reports no coronary dz and a low EF NICM - per pt report and report from [facility] her LVEF is 10-20% and it was also low prior to TAVR H/O acute resp failure on 10-01-22 - Pneumonia, CHF, hypoxia at [facility] after TAVR discharge (10-01-22) - transferred to [facility] in [place], [place] - upon arrival to [facility] it was noted she has left sided facial droop, upper and LE extremity weakness CVA - CT of head on 10-01-22 at [facility] showed acute to subacute infarcts in the right frontal and left parietal region - Dr. Callejas (neurologist at [facility]) note of 10-01-22 states cardioembolic stroke d/t multiple hypodensisties seen on CT (see above) - CTA of the neck on 10-01-22 at [facility] sowed no stenosis of the cervical carotid or vertebral arteries - Eliquis started at [facility] CKD 3 - follows with Dr. Lee of nephrology services Reported h/o HTN, however has been hypotensive - improved following reduction in medications HLD DM 2 Plan: * BP has improved a this time - start low dose Coreg and titrate as tolerated * Continue Eliquis * Continue dig and check dig level in the morning * Heart failure meds if bp and renal function allow * Monitor labs KRISTIN MUNGUIA MD FACP FAC CCDS Oct 13, 2022 12:42
--- NOTE | 2022-10-13 12:58 | Physical Therapy Daily Note ---
PT Daily Note-Current Subjective Pt. c/o fatigue. Agrees to short gait and TRF to bed and ex. Pain Location: No Pain Reported Section J - Health Conditions 1. Rarely or not at all 2. Occasionally 3. Frequently 4. Almost constantly 8. Unable to answer Pain Effect on Sleep: 1 Pain Interference with Therapy: 1 Pain Interference w/Day-to-Day: 1 Mental Status Patient Orientation: Normal For Age Transfers SCALE: Activities may be completed with or without assistive devices. 9-Emgnfxhmrd-oaqrzga completes the activity by him/herself with no assistance fr om a helper. 5-Set-up or Clean-up Assistance-helper sets up or cleans up; patient completes activity. [place] assists only prior to or following the activity. 4-Supervision or Touching Assistance-helper provides verbal cues and/or touching/steadying and/or contact guard assistance as patient completes activity. Assistance may be provided throughout the activity or intermittently. 3-Partial/Moderate Assistance-helper does LESS THAN HALF the effort. [place] lifts, holds or supports trunk or limbs, but provides less than half the effort. 2-Substantial/Maximal Assistance-helper does MORE THAN HALF the effort. [place] lifts or holds trunk or limbs and provides more than half the effort. 5-Ajovgimoo-yklhdm does ALL the effort. Patient does none of the effort to complete the activity. Or, the assistance of 2 or more helpers is required for the patient to complete the activity. If activity was not attempted, code reason: 7-Patient Refused. 9-Not Applicable-not attempted and the patient did not perform the activity before the current illness, exacerbation or injury. 10-Not Attempted due to Environmental Limitations-(lack of equipment, weather restraints, etc.). 88-Not Attempted due to Medical Conditions or Safety Concerns. Sit to Lying (QC): 6 Lying to Sitting/Side of Bed(Q: 6 Gait Training Gait Assistive Device: FWW 30 ft x 2 FWW mod to min assist Exercises Supine Ex: Bridging, Ankle pumps, Quad Set, Rolling, Glut sets, Heel Slides, Scooting, Straight leg raise, Hip abd/add Supine Reps: 15 Treatments sit to stands, approaches to chair or bed, gait , therex, positioning Assessment Current Status: Good Progress PT Link Wire Fabric Machine Tender Goals Link Wire Fabric Machine Tender Goals PT Link Wire Fabric Machine Tender Goals Time Frame: Oct 25, 2022 Roll Left & Right (QC): 4 (SBA) Sit to Lying (QC): 4 (SBA) Lying-Sitting on Side/Bed(QC): 4 (SBA) Sit to Stand (QC): 4 (CGA) Chair/Oyc-cw-Yycio Xfer(QC): 4 (CGA) Toilet Transfer (QC): 4 (CGA) Car Transfer (QC): 4 (CGA) Does the Patient Walk: Yes Walk 10 feet (QC): 4 (CGA) Walk 50ft with 2 Turns (QC): 4 (CGA) Walk 150 ft (QC): 4 (CGA) Walking 10ft on Uneven Surface: 4 (CGA) 1 Step (curb) (QC): 4 (CGA) 4 Steps (QC): 4 (CGA) 12 Steps (QC): 88 Picking up an Object (QC): 4 (SBA using alemite operator) Wheel 50 feet with 2 turns (QC: 5 Wheel 150 feet: 5 PT Plan Treatment/Plan Treatment Plan: Continue Plan of Care Treatment Plan: Bed Mobility, Education, Functional Activity Guera, Functional Strength, Group Therapy, Gait, Safety, Therapeutic Exercise, Transfers Treatment Duration: Oct 25, 2022 Frequency: At least 5 of 7 days/Wk (IRF) Estimated Hrs Per Day: 1.5 hours per day Patient and/or Family Agrees t: Yes Safety Risks/Education Patient Education: Gait Training, Transfer Techniques, Correct Positioning, Disease Process, Safety Issues Teaching Recipient: Patient Teaching Methods: Demonstration, Discussion Response to Teaching: Verbalize Understanding, Return Demonstration, Reinforcement Needed Time Time In: 1230 Time Out: 1300 DATE: Oct 13, 2022 Total Billed Treatment Time: 30 Total Billed Treatment 1,FA20,EX10 MIKE MORLEY PTA Oct 13, 2022 12:58
--- NOTE | 2022-10-13 13:24 | Occupational Ther Daily Note ---
OT Current Status-Daily Note Subjective Pt agreeable to OT Tx. ADL-Treatment Therapy Code Descriptions/Definitions Functional Swain Measure: 0=Not Assessed/NA 4=Minimal Assistance 1=Total Assistance 5=Supervision or Setup 2=Maximal Assistance 6=Modified Swain 3=Moderate Assistance 7=Complete IndependenceSCALE: Activities may be completed with or without assistive devices. 9-Qybpatcpaa-cbrtctk completes the activity by him/herself with no assistance from a helper. 5-Set-up or Clean-up Assistance-helper sets up or cleans up; patient completes activity. [place] assists only prior to or following the activity. 4-Supervision or Touching Assistance-helper provides verbal cues and/or touching/steadying and/or contact guard assistance as patient completes activity. Assistance may be provided throughout the activity or intermittently. 3-Partial/Moderate Assistance-helper does LESS THAN HALF the effort. [place] lifts, holds or supports trunk or limbs, but provides less than half the effort. 2-Substantial/Maximal Assistance-helper does MORE THAN HALF the effort. [place] lifts or holds trunk or limbs and provides more than half the effort. 8-Uthfqfuzg-dccred does ALL the effort. Patient does none of the effort to complete the activity. Or, the assistance of 2 or more helpers is required for the patient to complete the activity. If activity was not attempted, code reason: 7-Patient Refused. 9-Not Applicable-not attempted and the patient did not perform the activity before the current illness, exacerbation or injury. 10-Not Attempted due to Environmental Limitations-(lack of equipment, weather restraints, etc.). 88-Not Attempted due to Medical Conditions or Safety Concerns. Other Treatment Pt in bed, agreeable to OT tx with focus on LUE neuromuscular reeducation and LUE exercises. Pt completed x15 reps each of the following LUE: shoulder flexion (AAROM), elbow flexion/extension (AROM), wrist flexion/extension(AROM), finger flexion/extension(AROM), and pronation/supination(AROM). Post tx, pt in bed, call light in reach and all needs met. OT Short Term Goals Short Term Goals Time Frame: Oct 19, 2022 Toileting hygiene: 4 Shower/bathe self: 4 Upper body dressin Lower body dressin Putting on/taking off footwear: 4 OT Senior Living Goals Hand Drawer In Helper Goals Time Frame: Nov 04, 2022 Acute change in mental status: 0 Inattention: 0 Disorganized thinkin Altered level of consciousness: 0 Eating (QC): 6 Oral Hygiene (QC): 6 Toileting Hygiene (QC): 6 Shower/Bathe Self (QC): 6 Upper Body Dressing (QC): 6 Lower Body Dressing (QC): 6 On/Off Footwear (QC): 6 Additional Goals: 1-Demonstrate ADL Tasks, 2-Verbalize Understanding, 3-ImproveStrength/[place] 1=Demonstrate adherence to instructed precautions during ADL tasks. 2=Patient will verbalize/demonstrate understanding of assistive devices/modifications for ADL. 3=Patient will improve strength/tolerance for activity to enable patient to perform ADL's. OT Education/Plan Problem List/Assessment Assessment: Decreased Activ Tolerance, Decreased UE Strength, Impaired Funct Balance, Impaired I ADL's, Impaired Self-Care Skills Discharge Recommendations Plan/Recommendations: Continue POC Treatment Plan/Plan of Care Patient would benefit from OT for education, treatment and training to promote independence in ADL's, mobility, safety and/or upper extremity function for ADL's. Plan of Care: ADL Retraining, Functional Mobility, Group Exercise/Act as Ind, UE Funct Exercise/Act, UE Neuromus Re-Ed/Coord, Visual/Perceptual Retrain Treatment Duration: Nov 04, 2022 Frequency: At least 5 of 7 days/Wk (IRF) Estimated Hrs Per Day: 1.5 hours per day Rehab Potential: Good Time Start Time: 13:00 Stop Time: 13:15 DATE: Oct 13, 2022 Total Time Billed (hr/min): 15 Billed Treatment Time 1, EX RENEE FUENTES OT Oct 13, 2022 13:24
[2022-10-13] MEDS ORDERED: PATIENT MAY USE OWN MEDS, ALL MC SCH (14:15)
[2022-10-13 19:37] VITALS: BP 95/81
[2022-10-13 20:28] VITALS: BP 107/55
[2022-10-13] MEDS: PRAMIPEXOLE 0.5 MG TAB (MIRAPEX) PO SCH (20:44)
[2022-10-13] MEDS: traZODone 50 MG (DESYREL) TAB PO SCH (20:44)
[2022-10-13] MEDS: DULoxetine 30 MG (CYMBALTA) CAP PO SCH (20:44)
[2022-10-13] MEDS: PRAVASTATIN 20 MG TABLET PO SCH (20:44)
[2022-10-13] MEDS: ALLEGRA 180 MG TABLET PO SCH (20:49)
[2022-10-14 05:23] LABS: CALCIUM 9.4 MG/DL (8.5-10.1); CREATININE SERUM 1.25 MG/DL (0.60-1.30); POTASSIUM 3.8 MMOL/L (3.6-5.0)
[2022-10-14] MEDS: inSUlin ASPART (NovoLOG) 1 UNIT/0.01 ML (CHARGE PER UNIT) SC SCH ×4 (06:13→21:56)
[2022-10-14 07:44] VITALS: BP 116/55
[2022-10-14 07:45] VITALS: BP 116/55
[2022-10-14] MEDS: ACETAMINOPHEN 325 MG TABLET PO PRN (08:05)
[2022-10-14] MEDS: APIXABAN 5 MG (ELIQUIS) TABLET PO SCH ×2 (08:06→21:57)
[2022-10-14] MEDS: PANTOPRAZOLE 40 MG (PROTONIX) TAB PO SCH (08:06)
[2022-10-14] MEDS: FUROSEMIDE 20 MG (LASIX) TAB PO SCH (08:06)
[2022-10-14] MEDS: DOCUSATE SODIUM 100 MG (COLACE) CAP PO SCH ×2 (08:06→21:57)
[2022-10-14] MEDS: MECLIZINE 25 MG (ANTIVERT) TAB PO SCH ×3 (08:06→21:57)
[2022-10-14] MEDS: DIGOXIN 0.125 MG (LANOXIN) TAB PO SCH (08:07)
[2022-10-14] MEDS: EMPAGLIFLOZIN 10 MG TABLET (JARDIANCE) PO SCH (08:07)
[2022-10-14] MEDS: polyethylene glycoL POWDER 17 GM (MIRALAX) PACK PO SCH ×2 (08:46→21:57)
[2022-10-14] MEDS: SENNA W/DOCUSATE (SENOKOT S) TABLET PO SCH ×2 (08:46→21:57)
--- NOTE | 2022-10-14 08:47 | Progress Note - Cardiology ---
Cardiology SOAP Progress Note Subjective: Sitting up in recliner at the bedside Reports slight FUNEZ this morning No c/o CP, SOB, palpitations, syncope, near syncope or LE swelling Reports dizziness has resolved Objective: I&O/Vital Signs 10/17/22 07:38 Temp 36.4 Pulse 108 Resp 18 B/P (MAP) 127/58 (81) Pulse Ox 99 O2 Delivery Room Air 10/17/22 00:00 Intake Total 850 ml Balance 850 ml Constitutional: AAO x 3, well-developed, well-nourished Respiratory: No accessory muscle use, No respiratory distress; chest expansion is symmetric, chest is bilaterally symmetric, lungs clear to auscultation Cardiovascular: regular rate-rhythm; No JVD; S1 and S2, systolic murmur Gastrointestional: No tender; soft, round, audible bowel sounds Extremities: no lower extremity edema bilateral Neurologic/Psychiatric: other (LUE and LLE weakness) Skin: No rash on exposed areas, No ulcerations on exposed areas Results/Procedures: Labs Laboratory Tests 10/16/22 10:35: Glucometer 232H 10/16/22 15:52: Glucometer 119H 10/16/22 21:16: Glucometer 190H 10/17/22 04:57: White Blood Count 6.2, Red Blood Count 3.06L, Hemoglobin 9.0L, Hematocrit 28L, Mean Corpuscular Volume 92, Mean Corpuscular Hemoglobin 29, Mean Corpuscular Hemoglobin Concent 32, Red Cell Distribution Width 13.4, Platelet Count 256, Mean Platelet Volume 10.5, Immature Granulocyte % (Auto) 0, Neutrophils (%) (Auto) 53, Lymphocytes (%) (Auto) 27, Monocytes (%) (Auto) 10, Eosinophils (%) (Auto) 8, Basophils (%) (Auto) 1, Neutrophils # (Auto) 3.3, Lymphocytes # (Auto) 1.7, Monocytes # (Auto) 0.6, Eosinophils # (Auto) 0.5H, Basophils # (Auto) 0.1, Immature Granulocyte # (Auto) 0.0, Sodium Level 139, Potassium Level 3.7, Chloride Level 103, Carbon Dioxide Level 24, Anion Gap 12, Blood Urea Nitrogen 40H, Creatinine 1.30, Estimat Glomerular Filtration Rate 42, BUN/Creatinine Ratio 31, Glucose Level 124H, Calcium Level 9.5, Corrected Calcium 9.9, Total B ilirubin 0.3, Aspartate Amino Transf (AST/SGOT) 21, Alanine Aminotransferase (ALT/SGPT) 17, Alkaline Phosphatase 63, Total Protein 6.4, Albumin 3.5 A/P: Assessment: H/O severe aortic stenosis - S/P TAVR with an Vargas 23 mm SHANIQUE S3 ultra on 09-22-22 in [place], [place] by Dr. Chery Cardiac cath on 09-19-[address] Chery at [facility] showed no epicardial dz NICM - Echocardioram of 09-17-[address] Chery showed LVEF 10% with severe global hypokinesis with trace pericardial effusion - Echocardiogram of 09-22-[address] Chery at [facility] showed LVEF 20-25% - Echocardiogram of 09-23-[address] Chery at [facility] showed LVEF 10-15% with a normally function aortic bioprosthesis, peak velocity 1.6 m/s, mean gradient 5 mmHg and calculated valve area 1.6 cm2 - per pt report and report from [facility] her LVEF is 10-20% H/O acute resp failure on 10-01-22 - Pneumonia, CHF, hypoxia at [facility] after TAVR discharge (10-01-22) - transferred to [facility] in [place], [place] - upon arrival to [facility] it was noted she has left sided facial droop, upper and LE extr emity weakness CVA - CT of head on 10-01-22 at [facility] showed acute to subacute infarcts in the right frontal and left parietal region - Dr. 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 Lee of nephrology services Reported h/o HTN, however has been hypotensive - improved following reduction in medications HLD DM 2 Plan: * Tolerating low dose carvediolol - increase as tolerated * Renal function improving * Continue Eliquis * Continue dig and check dig level in the morning * Titrate Heart failure meds if bp and renal function allow * Monitor labs MAURICIO MARTIN Oct 14, 2022 08:47
[2022-10-14] MEDS ORDERED: [UNRECOGNIZED DRUG - REMARK] PO SCH (09:00)
--- NOTE | 2022-10-14 09:01 | PM&R Progress Note ---
Subjective HPI/CC On Admission Date Seen by Provider: Oct 14, 2022 Time Seen by Provider: 10:00 Subjective/Events-last exam 10/14/2022: Doing better Moving better Balance is the focus 10/13/2022: Doing well No pain reported BM regimen maintained No falls Balance focus via therapy 10/12/2022: Much improved Moving around well Balance is definitely affected Labs reviewed Cardiology consult appreciated 10/11/2022: Much improved status BM+ No falls No pain reported Reviewed meds and labs Creatinine noted Cardiology consult Review of Systems General: Fatigue, Malaise Neurological: Weakness, Incoordination Objective Exam Vital Signs Vital Signs Date Time Temp Pulse Resp B/P (MAP) Pulse Ox O2 Delivery O2 Flow Rate FiO2 10/14/22 21:45 96 Room Air 10/14/22 20:09 36.4 100 20 105/51 (69) Capillary Refill : General Appearance: No Apparent Distress, WD/WN, Chronically ill HEENT: PERRL/EOMI, Normal ENT Inspection, Pharynx Normal Neck: Full Range of Motion, Normal Inspection, Non Tender, Supple, Carotid Bruit Respiratory: Chest Non Tender, Lungs Clear, Normal Breath Sounds, No Accessory Muscle Use, No Respiratory Distress, Decreased Breath Sounds Cardiovascular: Regular Rate, Rhythm, No Edema, No Gallop, No JVD, No Murmur, Normal Peripheral Pulses Gastrointestinal: Normal Bowel Sounds, No Organomegaly, No Pulsatile Mass, Non Tender, Soft Back: Normal Inspection, No CVA Tenderness, No Vertebral Tenderness Extremity: Normal Capillary Refill, Normal Inspection, Normal Range of Motion, Non Tender, No Calf Tenderness, No Pedal Edema Neurologic/Psychiatric: Alert, Oriented x3, grader tender II-XII Norm as Tested, Abnormal Gait, Depressed Affect, Motor Weakness (left sided weakness) Skin: Normal Color, Warm/Dry Lymphatic: No Adenopathy Results/Procedures Lab Patient resulted labs reviewed. FIM Transfers Therapy Code Descriptions/Definitions Functional Shannon Measure: 0=Not Assessed/NA 4=Minimal Assistance 1=Total Assistance 5=Supervision or Setup 2=Maximal Assistance 6=Modified Shannon 3=Moderate Assistance 7=Complete IndependenceSCALE: Activities may be completed with or without assistive devices. 7-Hzdphugrqf-idbzird completes the activity by him/herself with no assistance from a helper. 5-Set-up or Clean-up Assistance-helper sets up or cleans up; patient completes activity. [place] assists only prior to or following the activity. 4-Supervision or Touching Assistance-helper provides verbal cues and/or touching/steadying and/or contact guard assistance as patient completes activity. Assistance may be provided throughout the activity or intermittently. 3-Partial/Moderate Assistance-helper does LESS THAN HALF the effort. [place] lifts, holds or supports trunk or limbs, but provides less than half the effort. 2-Substantial/Maximal Assistance-helper does MORE THAN HALF the effort. [place] lifts or holds trunk or limbs and provides more than half the effort. 3-Tpmhyhatg-jimcjw does ALL the effort. Patient does none of the effort to complete the activity. Or, the assistance of 2 or more helpers is required for the patient to complete the activity. If activity was not attempted, code reason: 7-Patient Refused. 9-Not Applicable-not attempted and the patient did not perform the activity before the current illness, exacerbation or injury. 10-Not Attempted due to Environmental Limitations-(lack of equipment, weather restraints, etc.). 88-Not Attempted due to Medical Conditions or Safety Concerns. Roll Left to Right (QC): 6 Sit to Lying (QC): 6 Sit to Stand (QC): 4 Chair/Tsa-lx-Gmwza Xfer(QC): 4 Car Transfer (QC): 3 Gait Training Does the Patient Walk?: Yes Distance: 50' Walk 10 feet (QC): 3 Walk 50 ft with 2 Turns(QC): 3 Walk 150 ft (QC): 88 Walking 10ft/uneven surface-QC: 88 Gait Persons Needed: 1 Gait Assistive Device: FWW Wheelchair Training Does the Pt Use a Wheelchair?: Yes Distance: 150' Wheel 50 ft with 2 turns (QC): 3 Wheel 150 ft (QC): 3 Type of Wheelchair: Manual Stair Training 1 Step (curb) (QC): 88 4 Steps (QC): 88 12 Steps (QC): 88 Balance Picking up an Object (QC): 3 (min assist using a premium service representative) ADL-Treatment Eating (QC): 5 Oral Hygiene (QC): 3 (Min A with removing adhesive from dentures during cleaning) Shower/Bathe Self (QC): 4 (CGA in stand) Upper Body Dressing (QC): 3 (Education on giana-technique. Min A overall with doffing/donning.) Lower Body Dressing (QC): 3 (Min A with pant hike on L side.) On/Off Footwear (QC): 3 (Min A with donning/doffing R gripper sock) Toileting Hygiene (QC): 3 (Min A with pant hike.) Toilet Transfer (QC): 3 (Min A. 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
--- NOTE | 2022-10-14 10:11 | Progress Note - Cardiology ---
Cardiology SOAP Progress Note Subjective: No cp or palp or syncope No n/v/d No swelling Gen weakness L-sided weakness Objective: I&O/Vital Signs 10/14/22 10/14/22 10/14/22 07:44 07:45 09:46 Temp 35.8 35.8 Pulse 89 89 Resp 16 16 B/P (MAP) 116/55 (75) 116/55 (75) Pulse Ox 96 96 O2 Delivery Room Air Room Air Room Air 10/13/22 23:59 Intake Total 880 ml Balance 880 ml Constitutional: AAO x 3, well-developed, well-nourished Respiratory: No accessory muscle use, No respiratory distress; chest expansion is symmetric, chest is bilaterally symmetric, lungs clear to auscultation Cardiovascular: regular rate-rhythm; No JVD; S1 and S2, systolic murmur Gastrointestional: No tender; soft, round, audible bowel sounds Extremities: no lower extremity edema bilateral Neurologic/Psychiatric: other (LUE and LLE weakness) Skin: No rash on exposed areas, No ulcerations on exposed areas Results/Procedures: Labs Laboratory Tests 10/13/22 15:35: Glucometer 162H 10/13/22 20:18: Glucometer 197H 10/14/22 05:00: Sodium Level 139, Potassium Level 3.8, Chloride Level 102, Carbon Dioxide Level 23, Anion Gap 14, Blood Urea Nitrogen 48H, Creatinine 1.25, Estimat Glomerular Filtration Rate 44, BUN/Creatinine Ratio 38, Glucose Level 124H, Calcium Level 9.4, Digoxin Level 0.36L Laboratory Tests 10/14/22 05:00 A/P: Assessment: H/O severe aortic stenosis - S/P TAVR with an Vargas 23 mm SHANIQUE S3 ultra on 09-22-22 in [place], [place] by Dr. Chery Cardiac cath on 09-19-[address] Chery at [facility] showed no epicardial dz NICM - Echocardioram of 09-17-[address] Chery showed LVEF 10% with severe global hypokinesis with trace pericardial effusion - Echocardiogram of 09-22-[address] Chery at [facility] showed LVEF 20-25% - Echocardiogram of 09-23-[address] Chery at [facility] showed LVEF 10-15% with a normally function aortic bioprosthesis, peak velocity 1.6 m/s, mean gradient 5 mmHg and calculated valve area 1.6 cm2 - per pt report and report from [facility] her LVEF is 10-20% H/O acute resp failure on 10-01-22 - Pneumonia, CHF, hypoxia at [facility] after TAVR discharge (10-01-22) - transferred to [facility] in [place], [place] - upon arrival to [facility] it was noted she has left sided facial droop, upper and LE extremity weakness CVA - CT of head on 10-01-22 at [facility] showed acute to subacute infarcts in the right frontal and left parietal region - Dr. 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 Lee of nephrology services Reported h/o HTN, however has been hypotensive - improved following reduction in medications HLD DM 2 Plan: * Tolerating low dose carvediolol - increase as tolerated * Consider adding CORIE-inhib/ARB if renal function continues to remain stable * Continue Eliquis * Continue dig. Dig level 0.36 on 10/14/22 * Titrate Heart failure meds if bp and renal function allow * Monitor labs KRISTIN MUNGUIA MD [facility] Oct 14, 2022 10:11
--- NOTE | 2022-10-14 10:47 | Physical Therapy Daily Note ---
PT Daily Note-Current Subjective Pt. agrees to Rx, Feels she has made progress but notes that she fatigues easily jennifer LLE . "Im noticing some tingling in my leg, is that good?" Pain Location: No Pain Reported Section J - Health Conditions 1. Rarely or not at all 2. Occasionally 3. Frequently 4. Almost constantly 8. Unable to answer Pain Effect on Sleep: 1 Pain Interference with Therapy: 1 Pain Interference w/Day-to-Day: 1 Mental Status Patient Orientation: Normal For Age Transfers SCALE: Activities may be completed with or without assistive devices. 6-Lcnotjiurg-ghdhoeb completes the activity by him/herself with no assistance from a helper. 5-Set-up or Clean-up Assistance-helper sets up or cleans up; patient completes activity. [place] assists only prior to or following the activity. 4-Supervision or Touching Assistance-helper provides verbal cues and/or touching/steadying and/or contact guard assistance as patient completes activity. Assistance may be provided throughout the activity or intermittently. 3-Partial/Moderate Assistance-helper does LESS THAN HALF the effort. [place] lifts, holds or supports trunk or limbs, but provides less than half the effort. 2-Substantial/Maximal Assistance-helper does MORE THAN HALF the effort. [place] lifts or holds trunk or limbs and provides more than half the effort. 9-Feaufywoc-pcbsfk does ALL the effort. Patient does none of the effort to complete the activity. Or, the assistance of 2 or more helpers is required for the patient to complete the activity. If activity was not attempted, code reason: 7-Patient Refused. 9-Not Applicable-not attempted and the patient did not perform the activity before the current illness, exacerbation or injury. 10-Not Attempted due to Environmental Limitations-(lack of equipment, weather restraints, etc.). 88-Not Attempted due to Medical Conditions or Safety Concerns. Roll Left & Right (QC): 6 Sit to Stand (QC): 3 Chair/Sua-dl-Cphms Xfer(QC): 3 Toilet Transfer (QC): 3 needs assist for sit to stand hand placement and wt shift forward as well as good placement of feet and MIGUEL Gait Training Does the Patient Walk?: Yes Walk 10 feet (QC): 4 Walk 50 ft with 2 Turns(QC): 4 Gait Persons Needed: 1 Gait Assistive Device: FWW improved gait pattern, needs cues and assist for broadening MIGUEL and more equal step length as well as stabilizing knee extension on left during stance phase, pt. fatigued with gait and this was more difficult Wheelchair Training Does the Pt Use a Wheelchair?: Yes Wheel 50 ft with 2 turns (QC): 3 Type of Wheelchair: Manual needs assist for brake on left, needs repeated cues to use LLE for propelling and has not been able to initiate use of L hand on wrung for propulsion Exercises Seated Therapy Exercises: Ankle pumps, Sit to stand, Long arc quads, Hip flexion, Hip abd/add Seated Reps: 15 Standing: Hip Abduction, Heel/toe raises, Marching, Mini squats, Sit to Stand, Side steps Standing Reps: 12 NuStep Minutes: 8 NuStep Workload: 1 Treatments leg presses on Nustep x 12. Assessment Current Status: Good Progress slow progress in all phases of Rx PT Theater Teacher Goals Jail Goals PT Theater Teacher Goals Time Frame: Oct 25, 2022 Roll Left & Right (QC): 4 (SBA) Sit to Lying (QC): 4 (SBA) Lying-Sitting on Side/Bed(QC): 4 (SBA) Sit to Stand (QC): 4 (CGA) Chair/Wax-fh-Ucwiz Xfer(QC): 4 (CGA) Toilet Transfer (QC): 4 (CGA) Car Transfer (QC): 4 (CGA) Does the Patient Walk: Yes Walk 10 feet (QC): 4 (CGA) Walk 50ft with 2 Turns (QC): 4 (CGA) Walk 150 ft (QC): 4 (CGA) Walking 10ft on Uneven Surface: 4 (CGA) 1 Step (curb) (QC): 4 (CGA) 4 Steps (QC): 4 (CGA) 12 Steps (QC): 88 Picking up an Object (QC): 4 (SBA using deskidding machine operator) Wheel 50 feet with 2 turns (QC: 5 Wheel 150 feet: 5 PT Plan Treatment/Plan Treatment Plan: Continue Plan of Care Treatment Plan: Bed Mobility, Education, Functional Activity Guera, Functional Strength, Group Therapy, Gait, Safety, Therapeutic Exercise, Transfers Treatment Duration: Oct 25, 2022 Frequency: At least 5 of 7 days/Wk (IRF) Estimated Hrs Per Day: 1.5 hours per day Patient and/or Family Agrees t: Yes Safety Risks/Education Patient Education: Gait Training, Transfer Techniques, Correct Positioning, W/C Management, Disease Process, Safety Issues Teaching Recipient: Patient Teaching Methods: Demonstration, Discussion Response to Teaching: Verbalize Understanding, Return Demonstration, Reinforcement Needed Time Time In: 900 Time Out: 1000 DATE: Oct 14, 2022 Total Billed Treatment Time: 60 Total Billed Treatment 1,EX30m,GT30m MIKE MORLEY PTA Oct 14, 2022 10:47
--- NOTE | 2022-10-14 12:59 | Occupational Ther Daily Note ---
OT Current Status-Daily Note Subjective Pt seen in room, up in recliner, agreeable to OT. No pain mentioned. Appearance Alert, cooperative ADL-Treatment Pt declined ADLs except toileting. Verbal cues to use arm rests for sit to stand, not reach for walker. Pt education using L hand during functional activi ties, neuromotor facilitation, eye-hand coordination, safety. Sit to stand min A. walked min/mod A with help steering FWW at times, to bathroom. Cues for hand placement for toilet transfer, CGA. Pt able to get pants down over hips but needed a little help getting pants up over L hip, min A. Managed hygiene with supervision. Walked to sink min-mod A, FWW. Miin assist to wash and dry hands after toileting. Min-mod assist into w/c, cues for placing L hand. Therapy Code Descriptions/Definitions Functional [place] Measure: 0=Not Assessed/NA 4=Minimal Assistance 1=Total Assistance 5=Supervision or Setup 2=Maximal Assistance 6=Modified [place] 3=Moderate Assistance 7=Complete IndependenceSCALE: Activities may be completed with or without assistive devices. 1-Gzxkwvnfoz-nrgdbif completes the activity by him/herself with no assistance from a helper. 5-Set-up or Clean-up Assistance-helper sets up or cleans up; patient completes activity. [place] assists only prior to or following the activity. 4-Supervision or Touching Assistance-helper provides verbal cues and/or touching/steadying and/or contact guard assistance as patient completes activity. Assistance may be provided throughout the activity or intermittently. 3-Partial/Moderate Assistance-helper does LESS THAN HALF the effort. [place] lifts, holds or supports trunk or limbs, but provides less than half the effort. 2-Substantial/Maximal Assistance-helper does MORE THAN HALF the effort. [place] lifts or holds trunk or limbs and provides more than half the effort. 4-Wainhndmk-uxgorf does ALL the effort. Patient does none of the effort to complete the activity. Or, the assistance of 2 or more helpers is required for the patient to complete the activity. If activity was not attempted, code reason: 7-Patient Refused. 9-Not Applicable-not attempted and the patient did not perform the activity before the current illness, exacerbation or injury. 10-Not Attempted due to Environmental Limitations-(lack of equipment, weather restraints, etc.). 88-Not Attempted due to Medical Conditions or Safety Concerns. Toileting Hygiene (QC): 3 (min/mod) Toilet Transfer (QC): 4 (CGA) Other Treatment Pt helped propel w/c to gym using feet but with some incoordination and difficulty getting enough resistance on floor with L foot..Did 10 min bilat UE exercise with arm bike set at 15 W resistance, with one brief recovery break. Pt's L hand did not fall off the handle of arm bike but needed cues to watch L hand when removing it from handle. Pt educ benefit of bilateral activities for motor recovery. Worked with beanbags, reaching for them in various planes with L hand, dropping them and placing them, tossing them bilaterally. Visible improvement with repetition. At end of tx, pt propelled herself back to room and had more success with L foot assistance with propelling w/c. Pt transferred min- mod assist to recliner, cues for hand placement, then left up in recliner, L UE on pillow, legs elevated, all needs met. Education OT Patient Education: Progress toward Goal/Update tx plan, Purpose of tx/functional activities, Rehab process, Safety issues, Transfer techniques, Other (reeducation techniques) Teaching Recipient: Patient Teaching Methods: Discussion Response to Teaching: Verbalize Understanding OT Short Term Goals Short Term Goals Time Frame: Oct 19, 2022 Toileting hygiene: 4 Shower/bathe self: 4 Upper body dressin Lower body dressin Putting on/taking off footwear: 4 OT Senior Care Goals Senior Care Goals Time Frame: Nov 04, 2022 Acute change in mental status: 0 Inattention: 0 Disorganized thinkin Altered level of consciousness: 0 Eating (QC): 6 Oral Hygiene (QC): 6 Toileting Hygiene (QC): 6 Shower/Bathe Self (QC): 6 Upper Body Dressing (QC): 6 Lower Body Dressing (QC): 6 On/Off Footwear (QC): 6 Additional Goals: 1-Demonstrate ADL Tasks, 2-Verbalize Understanding, 3- ImproveStrength/Guera 1=Demonstrate adherence to instructed precautions during ADL tasks. 2=Patient will verbalize/demonstrate understanding of assistive devices/modifications for ADL. 3=Patient will improve strength/tolerance for activity to enable patient to perform ADL's. OT Education/Plan Discharge Recommendations Plan/Recommendations: Continue POC Treatment Plan/Plan of Care Patient would benefit from OT for education, treatment and training to promote independence in ADL's, mobility, safety and/or upper extremity function for ADL's. Plan of Care: ADL Retraining, Functional Mobility, Group Exercise/Act as Ind, UE Funct Exercise/Act, UE Neuromus Re-Ed/Coord, Visual/Perceptual Retrain Treatment Duration: Nov 04, 2022 Frequency: At least 5 of 7 days/Wk (IRF) Estimated Hrs Per Day: 1.5 hours per day Rehab Potential: Good Time Start Time: 11:00 Stop Time: 12:00 DATE: Oct 14, 2022 Total Time Billed (hr/min): 60 Billed Treatment Time visit, 15 minutes ADL, 45 minutes neuromotor OPAL MONTENEGRO OT Oct 14, 2022 12:59
--- NOTE | 2022-10-14 13:07 | Physical Therapy Daily Note ---
PT Daily Note-Current Subjective Pt. agrees to Rx and walking, fatigued, would like to lay down after. Pain Location: No Pain Reported Section J - Health Conditions 1. Rarely or not at all 2. Occasionally 3. Frequently 4. Almost constantly 8. Unable to answer Pain Effect on Sleep: 1 Pain Interference with Therapy: 1 Pain Interference w/Day-to-Day: 1 Mental Status Patient Orientation: Normal For Age Transfers SCALE: Activities may be completed with or without assistive devices. 3-Tbgbbjbezd-pjizxlm completes the activity by him/herself with no assistance from a helper. 5-Set-up or Clean-up Assistance-helper sets up or cleans up; patient completes activity. [place] assists only prior to or following the activity. 4-Supervision or Touching Assistance-helper provides verbal cues and/or touching/steadying and/or contact guard assistance as patient completes activity. Assistance may be provided throughout the activity or intermittently. 3-Partial/Moderate Assistance-helper does LESS THAN HALF the effort. [place] lifts, holds or supports trunk or limbs, but provides less than half the effort. 2-Substantial/Maximal Assistance-helper does MORE THAN HALF the effort. [place] lifts or holds trunk or limbs and provides more than half the effort. 1-Dramynonv-unyqxg does ALL the effort. Patient does none of the effort to complete the activity. Or, the assistance of 2 or more helpers is required for the patient to complete the activity. If activity was not attempted, code reason: 7-Patient Refused. 9-Not Applicable-not attempted and the patient did not perform the activity before the current illness, exacerbation or injury. 10-Not Attempted due to Environmental Limitations-(lack of equipment, weather restraints, etc.). 88-Not Attempted due to Medical Conditions or Safety Concerns. sit to stand x 5 CGA and repeated instruction about wt shift and use of UEs Gait Training Does the Patient Walk?: Yes Walk 10 feet (QC): 3 Walk 50 ft with 2 Turns(QC): 3 Gait Persons Needed: 1 Gait Assistive Device: FWW requires assist to advance FWW and for balance stability, instructions for broader MIGUEL an foot placemnt Exercises Supine Ex: Bridging, Ankle pumps, Quad Set, Glut sets, Heel Slides, Short Arc Quads, Scooting, Straight leg raise, Hip abd/add Supine Reps: 15 (1430 Rx) Seated Therapy Exercises: Ankle pumps, Sit to stand, Long arc quads, Hip flexion Seated Reps: 8 Treatments TRFs, gait, ex Assessment Current Status: Good Progress fatigued with Rx. This pt. has significant balance and coordination issues due to CVA leaving her dependent on FWW for gait with assistance of helper/therapist. This pt demonstrates progressing ability to utilize the device and would not be safe or plausible to attempt ambulation without this device. This pts. gait deficit is greatly improved by the use of this device PT Usp Goals Usp Goals PT Armament Aircraft Mechanic Goals Time Frame: Oct 25, 2022 Roll Left & Right (QC): 4 (SBA) Sit to Lying (QC): 4 (SBA) Lying-Sitting on Side/Bed(QC): 4 (SBA) Sit to Stand (QC): 4 (CGA) Chair/Yrq-ay-Ettrr Xfer(QC): 4 (CGA) Toilet Transfer (QC): 4 (CGA) Car Transfer (QC): 4 (CGA) Does the Patient Walk: Yes Walk 10 feet (QC): 4 (CGA) Walk 50ft with 2 Turns (QC): 4 (CGA) Walk 150 ft (QC): 4 (CGA) Walking 10ft on Uneven Surface: 4 (CGA) 1 Step (curb) (QC): 4 (CGA) 4 Steps (QC): 4 (CGA) 12 Steps (QC): 88 Picking up an Object (QC): 4 (SBA using automotive title clerk) Wheel 50 feet with 2 turns (QC: 5 Wheel 150 feet: 5 PT Plan Treatment/Plan Treatment Plan: Continue Plan of Care Treatment Plan: Bed Mobility, Education, Functional Activity [place], Functional Strength, Group Therapy, Gait, Safety, Therapeutic Exercise, Transfers Treatment Duration: Oct 25, 2022 Frequency: At least 5 of 7 days/Wk (IRF) Estimated Hrs Per Day: 1.5 hours per day Patient and/or Family Agrees t: Yes Safety Risks/Education Patient Education: Gait Training, Transfer Techniques, Correct Positioning, Disease Process, Safety Issues Teaching Recipient: Patient Teaching Methods: Demonstration, Discussion Response to Teaching: Verbalize Understanding, Return Demonstration, Reinforcement Needed Time Time In: 1245 (1430) Time Out: 1300 (1445) DATE: Oct 14, 2022 Total Billed Treatment Time: 30 Total Billed Treatment 1,GT15m,EX15m MIKE MORLEY OPTICAL DESIGN ENGINEER Oct 14, 2022 13:07
--- NOTE | 2022-10-14 13:33 | Occupational Ther Daily Note ---
OT Current Status-Daily Note Subjective Pt seen in room, up in bed, agreeable to OT. No pain reported. Appearance Alert, cooperative ADL-Treatment Therapy Code Descriptions/Definitions Functional [place] Measure: 0=Not Assessed/NA 4=Minimal Assistance 1=Total Assistance 5=Supervision or Setup 2=Maximal Assistance 6=Modified [place] 3=Moderate Assistance 7=Complete IndependenceSCALE: Activities may be completed with or without assistive devices. 4-Ujijzdhhqh-pwwogjo completes the activity by him/herself with no assistance from a helper. 5-Set-up or Clean-up Assistance-helper sets up or cleans up; patient completes activity. [place] assists only prior to or following the activity. 4-Supervision or Touching Assistance-helper provides verbal cues and/or touching/steadying and/or contact guard assistance as patient completes activity. Assistance may be provided throughout the activity or intermittently. 3-Partial/Moderate Assistance-helper does LESS THAN HALF the effort. [place] lifts, holds or supports trunk or limbs, but provides less than half the effort. 2-Substantial/Maximal Assistance-helper does MORE THAN HALF the effort. [place] lifts or holds trunk or limbs and provides more than half the effort. 3-Mtgpopffi-ufdtdj does ALL the effort. Patient does none of the effort to complete the activity. Or, the assistance of 2 or more helpers is required for the patient to complete the activity. If activity was not attempted, code reason: 7-Patient Refused. 9-Not Applicable-not attempted and the patient did not perform the activity before the current illness, exacerbation or injury. 10-Not Attempted due to Environmental Limitations-(lack of equipment, weather restraints, etc.). 88-Not Attempted due to Medical Conditions or Safety Concerns. Other Treatment After education, bilat UE AAROM for shoulder and elbow, 10 reps. 10 reps each bilat AROM forearm, wrist and fingers, with cues to watch L UE for visual feedback and focus on symmetrical movements. L UE lags behind R during most exercises. Able to isolate touching L thumb to fingers for coordination. Pt education with three exercises that she can do on her own, with return demonstration. Pt also worked at shoulder and elbow with exercise bar, bilat but with less support. Also reached for and stacked cones with L UE, in various planes. Pt very pleased with progress noted after repetition and feedback. Pt left up in bed, 4 rails up at her request, all needs met. Education OT Patient Education: Exercise program, Home exercise program, Progress toward Goal/Update tx plan, Purpose of tx/functional activities, Other (neuromotor reeducation) Teaching Recipient: Patient Teaching Methods: Demonstration, Discussion Response to Teaching: Verbalize Understanding, Return Demonstration OT Short Term Goals Short Term Goals Time Frame: Oct 19, 2022 Toileting hygiene: 4 Shower/bathe self: 4 Upper body dressin Lower body dressin Putting on/taking off footwear: 4 OT Materials Management Supervisor Goals Materials Management Supervisor Goals Time Frame: Nov 04, 2022 Acute change in mental status: 0 Inattention: 0 Disorganized thinkin Altered level of consciousness: 0 Eating (QC): 6 Oral Hygiene (QC): 6 Toileting Hygiene (QC): 6 Shower/Bathe Self (QC): 6 Upper Body Dressing (QC): 6 Lower Body Dressing (QC): 6 On/Off Footwear (QC): 6 Additional Goals: 1-Demonstrate ADL Tasks, 2-Verbalize Understanding, 3- ImproveStrength/Guera 1=Demonstrate adherence to instructed precautions during ADL tasks. 2=Patient will verbalize/demonstrate understanding of assistive devices/modifications for ADL. 3=Patient will improve strength/tolerance for activity to enable patient to perform ADL's. OT Education/Plan Discharge Recommendations Plan/Recommendations: Continue POC Treatment Plan/Plan of Care Patient would benefit from OT for education, treatment and training to promote independence in ADL's, mobility, safety and/or upper extremity function for ADL's. Plan of Care: ADL Retraining, Functional Mobility, Group Exercise/Act as Ind, UE Funct Exercise/Act, UE Neuromus Re-Ed/Coord, Visual/Perceptual Retrain Treatment Duration: Nov 04, 2022 Frequency: At least 5 of 7 days/Wk (IRF) Estimated Hrs Per Day: 1.5 hours per day Rehab Potential: Good Time Start Time: 13:00 Stop Time: 13:30 DATE: Oct 14, 2022 Total Time Billed (hr/min): 30 Billed Treatment Time visit, neuromotor 30 minutes OPAL MONTENEGRO OT Oct 14, 2022 13:33
[2022-10-14 20:09] VITALS: BP 105/51
[2022-10-14] MEDS: PRAMIPEXOLE 0.5 MG TAB (MIRAPEX) PO SCH (21:56)
[2022-10-14] MEDS: DULoxetine 30 MG (CYMBALTA) CAP PO SCH (21:56)
[2022-10-14] MEDS: traZODone 50 MG (DESYREL) TAB PO SCH (21:56)
[2022-10-14] MEDS: ALLEGRA 180 MG TABLET PO SCH (21:56)
[2022-10-14] MEDS: PRAVASTATIN 20 MG TABLET PO SCH (21:57)
[2022-10-15] MEDS: inSUlin ASPART (NovoLOG) 1 UNIT/0.01 ML (CHARGE PER UNIT) SC SCH ×4 (05:20→22:01)
[2022-10-15 07:21] VITALS: BP 127/73
--- NOTE | 2022-10-15 07:38 | PM&R Progress Note ---
Subjective HPI/CC On Admission Date Seen by Provider: Oct 15, 2022 Time Seen by Provider: 12:00 Subjective/Events-last exam 10/15/2022: Improved status No falls Improved function BM regimen working well 10/14/2022: Doing better Moving better Balance is the focus 10/13/2022: Doing well No pain reported BM regimen maintained No falls Balance focus via therapy 10/12/2022: Much improved Moving around well Balance is definitely affected Labs reviewed Cardiology consult appreciated 10/11/2022: Much improved status BM+ No falls No pain reported Reviewed meds and labs Creatinine noted Cardiology consult Review of Systems General: Fatigue, Malaise Objective Exam Vital Signs Vital Signs Date Time Temp Pulse Resp B/P (MAP) Pulse Ox O2 Delivery O2 Flow Rate FiO2 10/15/22 21:45 98 Room Air 10/15/22 20:30 36.6 96 20 113/56 (75) Capillary Refill : General Appearance: No Apparent Distress, WD/WN, Chronically ill HEENT: PERRL/EOMI, Normal ENT Inspection, Pharynx Normal Neck: Full Range of Motion, Normal Inspection, Non Tender, Supple, Carotid Bruit Respiratory: Chest Non Tender, Lungs Clear, Normal Breath Sounds, No Accessory Muscle Use, No Respiratory Distress, Decreased Breath Sounds Cardiovascular: Regular Rate, Rhythm, No Edema, No Gallop, No JVD, No Murmur, Normal Peripheral Pulses Gastrointestinal: Normal Bowel Sounds, No Organomegaly, No Pulsatile Mass, Non Tender, Soft Back: Normal Inspection, No CVA Tenderness, No Vertebral Tenderness Extremity: Normal Capillary Refill, Normal Inspection, Normal Range of Motion, Non Tender, No Calf Tenderness, No Pedal Edema Neurologic/Psychiatric: Alert, Oriented x3, derrick engineer II-XII Norm as Tested, Abnormal Gait, Depressed Affect, Motor Weakness (left sided weakness) Skin: Normal Color, Warm/Dry Lymphatic: No Adenopathy Results/Procedures Lab Patient resulted labs reviewed. FIM Transfers Therapy Code Descriptions/Definitions Functional [place] Measure: 0=Not Assessed/NA 4=Minimal Assistance 1=Total Assistance 5=Supervision or Setup 2=Maximal Assistance 6=Modified [place] 3=Moderate Assistance 7=Complete IndependenceSCALE: Activities may be completed with or without assistive devices. 0-Indlbzmtks-vxafsez completes the activity by him/herself with no assistance from a helper. 5-Set-up or Clean-up Assistance-helper sets up or cleans up; patient completes activity. [place] assists only prior to or following the activity. 4-Supervision or Touching Assistance-helper provides verbal cues and/or touch ing/steadying and/or contact guard assistance as patient completes activity. Assistance may be provided throughout the activity or intermittently. 3-Partial/Moderate Assistance-helper does LESS THAN HALF the effort. [place] lifts, holds or supports trunk or limbs, but provides less than half the effort. 2-Substantial/Maximal Assistance-helper does MORE THAN HALF the effort. [place] lifts or holds trunk or limbs and provides more than half the effort. 0-Jooohsxpy-qkiuvn does ALL the effort. Patient does none of the effort to complete the activity. Or, the assistance of 2 or more helpers is required for the patient to complete the activity. If activity was not attempted, code reason: 7-Patient Refused. 9-Not Applicable-not attempted and the patient did not perform the activity before the current illness, exacerbation or injury. 10-Not Attempted due to Environmental Limitations-(lack of equipment, weather restraints, etc.). 88-Not Attempted due to Medical Conditions or Safety Concerns. Roll Left to Right (QC): 6 Sit to Lying (QC): 6 Sit to Stand (QC): 3 Chair/Uot-ho-Ehmkw Xfer(QC): 3 Car Transfer (QC): 3 Gait Training Does the Patient Walk?: Yes Distance: 50' Walk 10 feet (QC): 3 Walk 50 ft with 2 Turns(QC): 3 Walk 150 ft (QC): 88 Walking 10ft/uneven surface-QC: 88 Gait Persons Needed: 1 Gait Assistive Device: FWW Wheelchair Training Does the Pt Use a Wheelchair?: Yes Distance: 150' Wheel 50 ft with 2 turns (QC): 3 Wheel 150 ft (QC): 3 Type of Wheelchair: Manual Stair Training 1 Step (curb) (QC): 88 4 Steps (QC): 88 12 Steps (QC): 88 Balance Picking up an Object (QC): 3 (min assist using a awning installer) ADL-Treatment Eating (QC): 5 Oral Hygiene (QC): 3 (Min A with removing adhesive from dentures during cleaning) Shower/Bathe Self (QC): 4 (CGA in stand) Upper Body Dressing (QC): 3 (Education on giana-technique. 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
--- NOTE | 2022-10-15 07:39 | Occupational Ther Daily Note ---
OT Current Status-Daily Note Subjective Pt alert, lying in bed. Pt agrees to therapy. No c/o pain. Mental Status/Objective Patient Orientation: Person, Place, Time, Situation ADL-Treatment Pt agrees to shower after breakfast. Pt requested to ambulate to toilet. Mod A for Supine to EOB. Mod A for ambulating with FWW to bathroom, assist to manipulate FWW. Pt then was able to manipulate R side of pants with CGA, assist for L side then pt able to cleanse self sitting on toilet. Pt stood at sink to complete oral care with min A for balance. Pt opened containers and tubes using B hands independently. Pt able to open packages by self then uses regular utensils to eat. Pt ambulated with FWW to shower. Sitting 100% of the time on shower bench, pt able to complete shower with SBA. Set up for upper body dressing and footwear. Pt able to thread B feet into pants by self then min A to hike pants over L hip and hiked over R hip by self. After therapy, pt left in care of PT. All needs met in room. Therapy Code Descriptions/Definitions Functional [place] Measure: 0=Not Assessed/NA 4=Minimal Assistance 1=Total Assistance 5=Supervision or Setup 2=Maximal Assistance 6=Modified [place] 3=Moderate Assistance 7=Complete IndependenceSCALE: Activities may be completed with or without assistive devices. 5-Skuobgjfwp-umyqtqb completes the activity by him/herself with no assistance from a helper. 5-Set-up or Clean-up Assistance-helper sets up or cleans up; patient completes activity. [place] assists only prior to or following the activity. 4-Supervision or Touching Assistance-helper provides verbal cues and/or touching/steadying and/or contact guard assistance as patient completes activity. Assistance may be provided throughout the activity or intermittently. 3-Partial/Moderate Assistance-helper does LESS THAN HALF the effort. [place] lifts, holds or supports trunk or limbs, but provides less than half the effort. 2-Substantial/Maximal Assistance-helper does MORE THAN HALF the effort. [place] lifts or holds trunk or limbs and provides more than half the effort. 1-Awnvlpicf-rugxlv does ALL the effort. Patient does none of the effort to complete the activity. Or, the assistance of 2 or more helpers is required for the patient to complete the activity. If activity was not attempted, code reason: 7-Patient Refused. 9-Not Applicable-not attempted and the patient did not perform the activity before the current illness, exacerbation or injury. 10-Not Attempted due to Environmental Limitations-(lack of equipment, weather restraints, etc.). 88-Not Attempted due to Medical Conditions or Safety Concerns. Eating (QC): 6 Shower/Bathe Self (QC): 4 Upper Body Dressing (QC): 5 Lower Body Dressing (QC): 3 On/Off Footwear: 5 Toileting Hygiene (QC): 3 Toilet Transfer (QC): 4 Other Treatment Pt completed AAROM for correct technique with L shldr flexion due to compensatory techniques, 5 reps. AROM with B shldr flexion to 90 degrees with arms extended out, 10 reps. OT Short Term Goals Short Term Goals Time Frame: Oct 19, 2022 Toileting hygiene: 4 Shower/bathe self: 4 Upper body dressin Lower body dressin Putting on/taking off footwear: 4 OT Care Home Goals Field Crew Chief Goals Time Frame: Nov 04, 2022 Acute change in mental status: 0 Inattention: 0 Disorganized thinkin Altered level of consciousness: 0 Eating (QC): 6 Oral Hygiene (QC): 6 Toileting Hygiene (QC): 6 Shower/Bathe Self (QC): 6 Upper Body Dressing (QC): 6 Lower Body Dressing (QC): 6 On/Off Footwear (QC): 6 Additional Goals: 1-Demonstrate ADL Tasks, 2-Verbalize Understanding, 3- ImproveStrength/[place] 1=Demonstrate adherence to instructed precautions during ADL tasks. 2=Patient will verbalize/demonstrate understanding of assistive devices/modifications for ADL. 3=Patient will improve strength/tolerance for activity to enable patient to perform ADL's. OT Education/Plan Problem List/Assessment Assessment: Decreased Activ Tolerance, Decreased UE Strength, Impaired Coordination, Impaired Funct Balance, Impaired Self-Care Skills, Restricted Funct UE ROM Discharge Recommendations Plan/Recommendations: Continue POC Treatment Plan/Plan of Care Patient would benefit from OT for education, treatment and training to promote independence in ADL's, mobility, safety and/or upper extremity function for ADL's. Plan of Care: ADL Retraining, Functional Mobility, Group Exercise/Act as Ind, UE Funct Exercise/Act, UE Neuromus Re-Ed/Coord, Visual/Perceptual Retrain Treatment Duration: Nov 04, 2022 Frequency: At least 5 of 7 days/Wk (IRF) Estimated Hrs Per Day: 1.5 hours per day Rehab Potential: Good Time Start Time: 07:00 Stop Time: 08:30 DATE: Oct 15, 2022 Total Time Billed (hr/min): 90 Billed Treatment Time 1 visit-ADL 5 (75 min) EX 1 (15 min) ADINA ENG Oct 15, 2022 07:39
[2022-10-15] MEDS: MECLIZINE 25 MG (ANTIVERT) TAB PO SCH ×3 (07:43→22:03)
[2022-10-15] MEDS: DOCUSATE SODIUM 100 MG (COLACE) CAP PO SCH ×2 (07:43→22:01)
[2022-10-15] MEDS: FUROSEMIDE 20 MG (LASIX) TAB PO SCH (07:43)
[2022-10-15] MEDS: PANTOPRAZOLE 40 MG (PROTONIX) TAB PO SCH (07:43)
[2022-10-15] MEDS: EMPAGLIFLOZIN 10 MG TABLET (JARDIANCE) PO SCH (07:43)
[2022-10-15] MEDS: APIXABAN 5 MG (ELIQUIS) TABLET PO SCH ×2 (07:43→22:03)
[2022-10-15] MEDS: DIGOXIN 0.125 MG (LANOXIN) TAB PO SCH (07:43)
[2022-10-15] MEDS: polyethylene glycoL POWDER 17 GM (MIRALAX) PACK PO SCH ×2 (09:01→22:00)
[2022-10-15] MEDS: SENNA W/DOCUSATE (SENOKOT S) TABLET PO SCH ×2 (09:01→22:02)
--- NOTE | 2022-10-15 12:32 | Physical Therapy Daily Note ---
PT Daily Note-Current Subjective Pt up in w/c upon arrival and agrees to PT. Pt reports she is feeling better today. Pain Section J - Health Conditions 1. Rarely or not at all 2. Occasionally 3. Frequently 4. Almost constantly 8. Unable to answer Pain Effect on Sleep: 1 Pain Interference with Therapy: 1 Pain Interference w/Day-to-Day: 1 Mental Status Patient Orientation: Person, Place, Time, Situation Transfers SCALE: Activities may be completed with or without assistive devices. 6-Hjtttvgkky-sxiizuu completes the activity by him/herself with no assistance from a helper. 5-Set-up or Clean-up Assistance-helper sets up or cleans up; patient completes activity. [place] assists only prior to or following the activity. 4-Supervision or Touching Assistance-helper provides verbal cues and/or touching/steadying and/or contact guard assistance as patient completes activity. Assistance may be provided throughout the activity or intermittently. 3-Partial/Moderate Assistance-helper does LESS THAN HALF the effort. [place] lifts, holds or supports trunk or limbs, but provides less than half the effort. 2-Substantial/Maximal Assistance-helper does MORE THAN HALF the effort. [place] lifts or holds trunk or limbs and provides more than half the effort. 8-Bmdpbbjeu-kemsfl does ALL the effort. Patient does none of the effort to complete the activity. Or, the assistance of 2 or more helpers is required for the patient to complete the activity. If activity was not attempted, code reason: 7-Patient Refused. 9-Not Applicable-not attempted and the patient did not perform the activity before the current illness, exacerbation or injury. 10-Not Attempted due to Environmental Limitations-(lack of equipment, weather restraints, etc.). 88-Not Attempted due to Medical Conditions or Safety Concerns. Sit to Stand (QC): 4 Gait Training Does the Patient Walk?: Yes Distance: 100' Walk 10 feet (QC): 4 Walk 50 ft with 2 Turns(QC): 3 Gait Persons Needed: 1 Gait Assistive Device: FWW Wheelchair Training Does the Pt Use a Wheelchair?: Yes Wheel 50 ft with 2 turns (QC): 5 Type of Wheelchair: Manual Exercises Seated Therapy Exercises: Ankle pumps, Long arc quads, Hip flexion Seated Reps: 30 Standing: Mini squats, Sit to Stand, Side steps, Step-ups Standing Reps: 20 NuStep Minutes: 15 NuStep Workload: 2 Treatments Pt wheels herself to therapy gym and then TRFs to nustep. Pt then amb to // bars. Pt then performs standing exs in // bars. Pt then amb back to room and TRFs back to bed. All needs met and call light nearby. Assessment Current Status: Good Progress Pt fatigued post treatment but able to perform all exs w/ LLE w/ reduced reps. Pt required verbal and tactile cues in order to perform TRFs and exs correctly. PT Teller Supervisor Goals Usp Goals PT Teller Supervisor Goals Time Frame: Oct 25, 2022 Roll Left & Right (QC): 4 (SBA) Sit to Lying (QC): 4 (SBA) Lying-Sitting on Side/Bed(QC): 4 (SBA) Sit to Stand (QC): 4 (CGA) Chair/Hzy-wq-Usvbb Xfer(QC): 4 (CGA) Toilet Transfer (QC): 4 (CGA) Car Transfer (QC): 4 (CGA) Does the Patient Walk: Yes Walk 10 feet (QC): 4 (CGA) Walk 50ft with 2 Turns (QC): 4 (CGA) Walk 150 ft (QC): 4 (CGA) Walking 10ft on Uneven Surface: 4 (CGA) 1 Step (curb) (QC): 4 (CGA) 4 Steps (QC): 4 (CGA) 12 Steps (QC): 88 Picking up an Object (QC): 4 (SBA using card hand) Wheel 50 feet with 2 turns (QC: 5 Wheel 150 feet: 5 PT Plan Problem List Problem List: Activity Tolerance, Functional Strength, Safety, Gait Treatment/Plan Treatment Plan: Continue Plan of Care Treatment Plan: Bed Mobility, Education, Functional Activity [place], Functional Strength, Group Therapy, Gait, Safety, Therapeutic Exercise, Transfers Treatment Duration: Oct 25, 2022 Frequency: At least 5 of 7 days/Wk (IRF) Estimated Hrs Per Day: 1.5 hours per day Patient and/or Family Agrees t: Yes Safety Risks/Education Patient Education: Gait Training, Transfer Techniques, Correct Positioning Teaching Recipient: Patient Teaching Methods: Discussion Response to Teaching: Return Demonstration Time Time In: 0830 Time Out: 1000 DATE: Oct 15, 2022 Total Billed Treatment Time: 90 Total Billed Treatment 1, Ex x4 (60'), Gt x 2 (30') ORA CASTANEDA WATER SPONGER Oct 15, 2022 12:32
[2022-10-15] MEDS: ACETAMINOPHEN 325 MG TABLET PO PRN (17:39)
[2022-10-15 20:30] VITALS: BP 113/56
[2022-10-15] MEDS: ALLEGRA 180 MG TABLET PO SCH (21:59)
[2022-10-15] MEDS: PRAMIPEXOLE 0.5 MG TAB (MIRAPEX) PO SCH (22:01)
[2022-10-15] MEDS: PRAVASTATIN 20 MG TABLET PO SCH (22:02)
[2022-10-15] MEDS: traZODone 50 MG (DESYREL) TAB PO SCH (22:02)
[2022-10-15] MEDS: DULoxetine 30 MG (CYMBALTA) CAP PO SCH (22:03)
[2022-10-16] MEDS: inSUlin ASPART (NovoLOG) 1 UNIT/0.01 ML (CHARGE PER UNIT) SC SCH ×4 (06:38→21:22)
[2022-10-16 07:02] VITALS: BP 110/68
--- NOTE | 2022-10-16 07:16 | PM&R Progress Note ---
Subjective HPI/CC On Admission Date Seen by Provider: Oct 16, 2022 Time Seen by Provider: 12:30 Subjective/Events-last exam 10/16/2022: No major issues No pain reported Daughter at bedside 10/15/2022: Improved status No falls Improved function BM regimen working well 10/14/2022: Doing better Moving better Balance is the focus 10/13/2022: Doing well No pain reported BM regimen maintained No falls Balance focus via therapy 10/12/2022: Much improved Moving around well Balance is definitely affected Labs reviewed Cardiology consult appreciated 10/11/2022: Much improved status BM+ No falls No pain reported Reviewed meds and labs Creatinine noted Cardiology consult Review of Systems General: Fatigue, Malaise Objective Exam Vital Signs Vital Signs Date Time Temp Pulse Resp B/P (MAP) Pulse Ox O2 Delivery O2 Flow Rate FiO2 10/16/22 09:20 Room Air 10/16/22 07:02 36.3 83 20 110/68 (82) 100 Capillary Refill : General Appearance: No Apparent Distress, WD/WN, Chronically ill HEENT: PERRL/EOMI, Normal ENT Inspection, Pharynx Normal Neck: Full Range of Motion, Normal Inspection, Non Tender, Supple, Carotid Bruit Respiratory: Chest Non Tender, Lungs Clear, Normal Breath Sounds, No Accessory Muscle Use, No Respiratory Distress, Decreased Breath Sounds Cardiovascular: Regular Rate, Rhythm, No Edema, No Gallop, No JVD, No Murmur, Normal Peripheral Pulses Gastrointestinal: Normal Bowel Sounds, No Organomegaly, No Pulsatile Mass, Non Tender, Soft Back: Normal Inspection, No CVA Tenderness, No Vertebral Tenderness Extremity: Normal Capillary Refill, Normal Inspection, Normal Range of Motion, Non Tender, No Calf Tenderness, No Pedal Edema Neurologic/Psychiatric: Alert, Oriented x3, supervisor waterproofing II-XII Norm as Tested, Abnormal Gait, Depressed Affect, Motor Weakness (left sided weakness) Skin: Normal Color, Warm/Dry Lymphatic: No Adenopathy Results/Procedures Lab Patient resulted labs reviewed. FIM Transfers Therapy Code Descriptions/Definitions Functional [place] Measure: 0=Not Assessed/NA 4=Minimal Assistance 1=Total Assistance 5=Supervision or Setup 2=Maximal Assistance 6=Modified [place] 3=Moderate Assistance 7=Complete IndependenceSCALE: Activities may be completed with or without assistive devices. 5-Ucbofpnjmk-ovgymeb completes the activity by him/herself with no assistance from a helper. 5-Set-up or Clean-up Assistance-helper sets up or cleans up; patient completes activity. [place] assists only prior to or following the activity. 4-Supervision or Touching Assistance-helper provides verbal cues and/or touching/steadying and/or contact guard assistance as patient completes activity. Assistance may be provided throughout the activity or intermittently. 3-Partial/Moderate Assistance-helper does LESS THAN HALF the effort. [place] lifts, holds or supports trunk or limbs, but provides less than half the effort. 2-Substantial/Maximal Assistance-helper does MORE THAN HALF the effort. [place] lifts or holds trunk or limbs and provides more than half the effort. 4-Gsowedneg-hkweep does ALL the effort. Patient does none of the effort to complete the activity. Or, the assistance of 2 or more helpers is required for the patient to complete the activity. If activity was not attempted, code reason: 7-Patient Refused. 9-Not Applicable-not attempted and the patient did not perform the activity before the current illness, exacerbation or injury. 10-Not Attempted due to Environmental Limitations-(lack of equipment, weather restraints, etc.). 88-Not Attempted due to Medical Conditions or Safety Concerns. Roll Left to Right (QC): 6 Sit to Lying (QC): 6 Sit to Stand (QC): 4 Chair/Nzn-to-Vumxc Xfer(QC): 3 Car Transfer (QC): 3 Gait Training Does the Patient Walk?: Yes Distance: 100' Walk 10 feet (QC): 4 Walk 50 ft with 2 Turns(QC): 3 Walk 150 ft (QC): 88 Walking 10ft/uneven surface-QC: 88 Gait Persons Needed: 1 Gait Assistive Device: FWW Wheelchair Training Does the Pt Use a Wheelchair?: Yes Distance: 150' Wheel 50 ft with 2 turns (QC): 5 Wheel 150 ft (QC): 3 Type of Wheelchair: Manual Stair Training 1 Step (curb) (QC): 88 4 Steps (QC): 88 12 Steps (QC): 88 Balance Picking up an Object (QC): 3 (min assist using a yarding supervisor) ADL-Treatment Eating (QC): 6 Oral Hygiene (QC): 3 (Min A with removing adhesive from dentures during cleaning) Shower/Bathe Self (QC): 4 Upper Body Dressing (QC): 5 Lower Body Dressing (QC): 3 On/Off Footwear (QC): 5 Toileting Hygiene (QC): 3 Toilet Transfer (QC): 4 Assessment/Plan Assessment and Plan Assess & Plan/Chief Complaint Assessment: 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
[2022-10-16] MEDS: polyethylene glycoL POWDER 17 GM (MIRALAX) PACK PO SCH ×2 (07:38→21:20)
[2022-10-16] MEDS: DOCUSATE SODIUM 100 MG (COLACE) CAP PO SCH ×2 (07:38→21:20)
[2022-10-16] MEDS: MECLIZINE 25 MG (ANTIVERT) TAB PO SCH ×3 (07:39→21:21)
[2022-10-16] MEDS: APIXABAN 5 MG (ELIQUIS) TABLET PO SCH ×2 (07:39→21:21)
[2022-10-16] MEDS: DIGOXIN 0.125 MG (LANOXIN) TAB PO SCH (07:39)
[2022-10-16] MEDS: FUROSEMIDE 20 MG (LASIX) TAB PO SCH (07:39)
[2022-10-16] MEDS: PANTOPRAZOLE 40 MG (PROTONIX) TAB PO SCH (07:39)
[2022-10-16] MEDS: SENNA W/DOCUSATE (SENOKOT S) TABLET PO SCH ×2 (07:39→21:20)
[2022-10-16] MEDS: EMPAGLIFLOZIN 10 MG TABLET (JARDIANCE) PO SCH (07:39)
[2022-10-16] MEDS: ACETAMINOPHEN 325 MG TABLET PO PRN (18:52)
[2022-10-16 20:00] VITALS: BP 105/54
[2022-10-16] MEDS: ALLEGRA 180 MG TABLET PO SCH (21:19)
[2022-10-16] MEDS: traZODone 50 MG (DESYREL) TAB PO SCH (21:21)
[2022-10-16] MEDS: DULoxetine 30 MG (CYMBALTA) CAP PO SCH (21:21)
[2022-10-16] MEDS: PRAVASTATIN 20 MG TABLET PO SCH (21:21)
[2022-10-16] MEDS: PRAMIPEXOLE 0.5 MG TAB (MIRAPEX) PO SCH (21:21)
[2022-10-17 05:18] LABS: BASOPHILS # (AUTO) 0.1 10^3/uL (0.0-0.1); BASOPHILS % (AUTO) 1 % (0-10); EOSINOPHILS # (AUTO) 0.5 10^3/uL (0.0-0.3); EOSINOPHILS % (AUTO) 8 % (0-10); HEMATOCRIT 28 % (35-52); LYMPHOCYTES # (AUTO) 1.7 10^3/uL (1.0-4.0); LYMPHOCYTES % (AUTO) 27 % (12-44); MEAN CORPUSCULAR HEMOGLOBIN 29 pg (25-34); MEAN CORPUSCULAR HGB CONC 32 g/dL (32-36); MEAN CORPUSCULAR VOLUME 92 fL (80-99); MEAN PLATELET VOLUME 10.5 fL (9.0-12.2); MONOCYTES # (AUTO) 0.6 10^3/uL (0.0-1.0); MONOCYTES % (AUTO) 10 % (0-12); NEUTROPHILS # (AUTO) 3.3 10^3/uL (1.8-7.8); NEUTROPHILS % (AUTO) 53 % (42-75); PLATELET COUNT 256 10^3/uL (130-400); WHITE BLOOD COUNT 6.2 10^3/uL (4.3-11.0)
--- NOTE | 2022-10-17 05:30 | PM&R Progress Note ---
Subjective HPI/CC On Admission Date Seen by Provider: Oct 17, 2022 Time Seen by Provider: 08:30 Subjective/Events-last exam 10/17/2022: Doing well No pain reported Walking well No falls 10/16/2022: No major issues No pain reported Daughter at bedside 10/15/2022: Improved status No falls Improved function BM regimen working well 10/14/2022: Doing better Moving better Balance is the focus 10/13/2022: Doing well No pain reported BM regimen maintained No falls Balance focus via therapy 10/12/2022: Much improved Moving around well Balance is definitely affected Labs reviewed Cardiology consult appreciated 10/11/2022: Much improved status BM+ No falls No pain reported Reviewed meds and labs Creatinine noted Cardiology consult Review of Systems General: Fatigue, Malaise Objective Exam Vital Signs Vital Signs Date Time Temp Pulse Resp B/P (MAP) Pulse Ox O2 Delivery O2 Flow Rate FiO2 10/17/22 20:16 Room Air 10/17/22 19:46 36.3 106 20 96/59 (71) 97 Capillary Refill : General Appearance: No Apparent Distress, WD/WN, Chronically ill HEENT: PERRL/EOMI, Normal ENT Inspection, Pharynx Normal Neck: Full Range of Motion, Normal Inspection, Non Tender, Supple, Carotid Bruit Respiratory: Chest Non Tender, Lungs Clear, Normal Breath Sounds, No Accessory Muscle Use, No Respiratory Distress, Decreased Breath Sounds Cardiovascular: Regular Rate, Rhythm, No Edema, No Gallop, No JVD, No Murmur, Normal Peripheral Pulses Gastrointestinal: Normal Bowel Sounds, No Organomegaly, No Pulsatile Mass, Non Tender, Soft Back: Normal Inspection, No CVA Tenderness, No Vertebral Tenderness Extremity: Normal Capillary Refill, Normal Inspection, Normal Range of Motion, Non Tender, No Calf Tenderness, No Pedal Edema Neurologic/Psychiatric: Alert, Oriented x3, 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 FIM Transfers Therapy Code Descriptions/Definitions Functional [place] Measure: 0=Not Assessed/NA 4=Minimal Assistance 1=Total Assistance 5=Supervision or Setup 2=Maximal Assistance 6=Modified [place] 3=Moderate Assistance 7=Complete IndependenceSCALE: Activities may be completed with or without assistive devices. 8-Ghfbuoihfl-gmdtnfe completes the activity by him/herself with no assistance fr om a helper. 5-Set-up or Clean-up Assistance-helper sets up or cleans up; patient completes activity. [place] assists only prior to or following the activity. 4-Supervision or Touching Assistance-helper provides verbal cues and/or touching/steadying and/or contact guard assistance as patient completes activity. Assistance may be provided throughout the activity or intermittently. 3-Partial/Moderate Assistance-helper does LESS THAN HALF the effort. [place] lifts, holds or supports trunk or limbs, but provides less than half the effort. 2-Substantial/Maximal Assistance-helper does MORE THAN HALF the effort. [place] lifts or holds trunk or limbs and provides more than half the effort. 1-Lmzynpwsw-qczcag does ALL the effort. Patient does none of the effort to complete the activity. Or, the assistance of 2 or more helpers is required for the patient to complete the activity. If activity was not attempted, code reason: 7-Patient Refused. 9-Not Applicable-not attempted and the patient did not perform the activity before the current illness, exacerbation or injury. 10-Not Attempted due to Environmental Limitations-(lack of equipment, weather restraints, etc.). 88-Not Attempted due to Medical Conditions or Safety Concerns. Roll Left to Right (QC): 6 Sit to Lying (QC): 6 Sit to Stand (QC): 4 Chair/Erb-ur-Ahjdr Xfer(QC): 3 Car Transfer (QC): 3 Gait Training Does the Patient Walk?: Yes Distance: 100' Walk 10 feet (QC): 4 Walk 50 ft with 2 Turns(QC): 3 Walk 150 ft (QC): 88 Walking 10ft/uneven surface-QC: 88 Gait Persons Needed: 1 Gait Assistive Device: FWW Wheelchair Training Does the Pt Use a Wheelchair?: Yes Distance: 150' Wheel 50 ft with 2 turns (QC): 5 Wheel 150 ft (QC): 3 Type of Wheelchair: Manual Stair Training 1 Step (curb) (QC): 88 4 Steps (QC): 88 12 Steps (QC): 88 Balance Picking up an Object (QC): 3 (min assist using a publicity agent) ADL-Treatment Eating (QC): 6 Oral Hygiene (QC): 3 (Min A with removing adhesive from dentures during cleaning) Shower/Bathe Self (QC): 4 Upper Body Dressing (QC): 5 Lower Body Dressing (QC): 3 On/Off Footwear (QC): 5 Toileting Hygiene (QC): 3 Toilet Transfer (QC): 4 Assessment/Plan Assessment and Plan Assess & Plan/Chief Complaint Assessment: 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
[2022-10-17 05:32] LABS: ALBUMIN 3.5 GM/DL (3.2-4.5); BILIRUBIN,TOTAL 0.3 MG/DL (0.1-1.0); CALCIUM 9.5 MG/DL (8.5-10.1); CREATININE SERUM 1.3 MG/DL (0.60-1.30); POTASSIUM 3.7 MMOL/L (3.6-5.0); TOTAL PROTEIN 6.4 GM/DL (6.4-8.2)
[2022-10-17] MEDS: inSUlin ASPART (NovoLOG) 1 UNIT/0.01 ML (CHARGE PER UNIT) SC SCH ×4 (05:37→20:15)
--- NOTE | 2022-10-17 07:20 | Occupational Ther Daily Note ---
OT Current Status-Daily Note Subjective Pt in bed, agreeable to OT Tx with focus on ADLs. ADL-Treatment Therapy Code Descriptions/Definitions Functional [place] Measure: 0=Not Assessed/NA 4=Minimal Assistance 1=Total Assistance 5=Supervision or Setup 2=Maximal Assistance 6=Modified [place] 3=Moderate Assistance 7=Complete IndependenceSCALE: Activities may be completed with or without assistive devices. 3-Vqnhqljgcz-vaorqbt completes the activity by him/herself with no assistance f rom a helper. 5-Set-up or Clean-up Assistance-helper sets up or cleans up; patient completes activity. [place] assists only prior to or following the activity. 4-Supervision or Touching Assistance-helper provides verbal cues and/or touching/steadying and/or contact guard assistance as patient completes activity. Assistance may be provided throughout the activity or intermittently. 3-Partial/Moderate Assistance-helper does LESS THAN HALF the effort. [place] lifts, holds or supports trunk or limbs, but provides less than half the effort. 2-Substantial/Maximal Assistance-helper does MORE THAN HALF the effort. [place] lifts or holds trunk or limbs and provides more than half the effort. 9-Ckusnmswr-ekqcnf does ALL the effort. Patient does none of the effort to complete the activity. Or, the assistance of 2 or more helpers is required for the patient to complete the activity. If activity was not attempted, code reason: 7-Patient Refused. 9-Not Applicable-not attempted and the patient did not perform the activity before the current illness, exacerbation or injury. 10-Not Attempted due to Environmental Limitations-(lack of equipment, weather restraints, etc.). 88-Not Attempted due to Medical Conditions or Safety Concerns. Eating (QC): 5 (set up assist to open container.) Oral Hygiene (QC): 4 (SBA seated at sink.) Upper Body Dressing (QC): 4 (SBA, min VCs) Lower Body Dressing (QC): 3 (Min A with L pant hike.) Toileting Hygiene (QC): 3 (Min A with pant hike on L side.) Toilet Transfer (QC): 4 (CGA on/off BSC over toilet.) Other Treatment Pt in bed, transferred supine to sit EOB, min A. Sit to stand with CGA, then min A with FWW to transfer into bathroom and onto BSC over toilet. Pt completed toileting, requiring min A with pant hike on L side. Pt then sat at sink for oral care/grooming tasks, SBA. Pt used FWW to transfer to recliner, Min A-CGA with balance. Pt's breakfast arrived, pt able to manipulate utensils and use BUEs for feeding self. Pt required assistance to open 1 container. After breakfast, pt changed clothes, min A with LE clothing, SBA for UE clothing with VCs to recall giana-techniques. Post tx, pt in recliner, call light in reach and all needs met. Education OT Patient Education: Correct positioning, Energy conservation, Modified ADL techniques, Progress toward Goal/Update tx plan, Purpose of tx/functional act ivities, Rehab process Teaching Recipient: Patient Teaching Methods: Discussion Response to Teaching: Verbalize Understanding OT Short Term Goals Short Term Goals Time Frame: Oct 19, 2022 Toileting hygiene: 4 Shower/bathe self: 4 Upper body dressin Lower body dressin Putting on/taking off footwear: 4 OT Manager Student Services Goals Manager Student Services Goals Time Frame: Nov 04, 2022 Acute change in mental status: 0 Inattention: 0 Disorganized thinkin Altered level of consciousness: 0 Eating (QC): 6 Oral Hygiene (QC): 6 Toileting Hygiene (QC): 6 Shower/Bathe Self (QC): 6 Upper Body Dressing (QC): 6 Lower Body Dressing (QC): 6 On/Off Footwear (QC): 6 Additional Goals: 1-Demonstrate ADL Tasks, 2-Verbalize Understanding, 3- ImproveStrength/[place] 1=Demonstrate adherence to instructed precautions during ADL tasks. 2=Patient will verbalize/demonstrate understanding of assistive device s/modifications for ADL. 3=Patient will improve strength/tolerance for activity to enable patient to perform ADL's. OT Education/Plan Problem List/Assessment Assessment: Decreased Activ Tolerance, Decreased UE Strength, Impaired Funct Balance, Impaired I ADL's, Impaired Self-Care Skills, Restricted Funct UE ROM, Visual-Perceptual Deficit Discharge Recommendations Plan/Recommendations: Continue POC Treatment Plan/Plan of Care Patient would benefit from OT for education, treatment and training to promote independence in ADL's, mobility, safety and/or upper extremity function for ADL's. Plan of Care: ADL Retraining, Functional Mobility, Group Exercise/Act as Ind, UE Funct Exercise/Act, UE Neuromus Re-Ed/Coord, Visual/Perceptual Retrain Treatment Duration: Nov 04, 2022 Frequency: At least 5 of 7 days/Wk (IRF) Estimated Hrs Per Day: 1.5 hours per day Rehab Potential: Good Time Start Time: 06:45 Stop Time: 07:45 DATE: Oct 17, 2022 Total Time Billed (hr/min): 60 Billed Treatment Time 1, ADL 4 RENEE FUENTES OT Oct 17, 2022 07:20
[2022-10-17 07:38] VITALS: BP 127/58
[2022-10-17] MEDS: PANTOPRAZOLE 40 MG (PROTONIX) TAB PO SCH (07:57)
[2022-10-17] MEDS: DIGOXIN 0.125 MG (LANOXIN) TAB PO SCH (07:57)
[2022-10-17] MEDS: DOCUSATE SODIUM 100 MG (COLACE) CAP PO SCH ×2 (07:57→20:11)
[2022-10-17] MEDS: FUROSEMIDE 20 MG (LASIX) TAB PO SCH (07:57)
[2022-10-17] MEDS: MECLIZINE 25 MG (ANTIVERT) TAB PO SCH ×3 (07:57→20:12)
[2022-10-17] MEDS: EMPAGLIFLOZIN 10 MG TABLET (JARDIANCE) PO SCH (07:57)
[2022-10-17] MEDS: APIXABAN 5 MG (ELIQUIS) TABLET PO SCH ×2 (07:57→20:12)
[2022-10-17] MEDS: SENNA W/DOCUSATE (SENOKOT S) TABLET PO SCH ×2 (07:59→20:11)
[2022-10-17] MEDS: polyethylene glycoL POWDER 17 GM (MIRALAX) PACK PO SCH ×2 (07:59→20:14)
--- NOTE | 2022-10-17 09:34 | Progress Note - Cardiology ---
Cardiology SOAP Progress Note Subjective: Sitting up in recliner at the bedside States she feels good today other than feeling tired No c/o CP, palpitations, syncope or near syncope No c/o LE swelling Objective: I&O/Vital Signs 10/18/22 09:10 Temp 36.3 Pulse 94 Resp 20 B/P (MAP) 116/55 (75) Pulse Ox 99 O2 Delivery Room Air 10/18/22 00:00 Intake Total 1990 ml Balance 1990 ml Constitutional: AAO x 3, well-developed, well-nourished Respiratory: No accessory muscle use, No respiratory distress; chest expansion is symmetric, chest is bilaterally symmetric, lungs clear to auscultation Cardiovascular: regular rate-rhythm; No JVD; S1 and S2, systolic murmur Gastrointestional: No tender; soft, round, audible bowel sounds Extremities: no lower extremity edema bilateral Neurologic/Psychiatric: other (LUE and LLE weakness) Skin: No rash on exposed areas, No ulcerations on exposed areas Results/Procedures: Labs Laboratory Tests 10/17/22 16:28: Glucometer 215H 10/17/22 20:10: Glucometer 172H 10/18/22 05:27: Sodium Level 139, Potassium Level 3.6, Chloride Level 103, Carbon Dioxide Level 23, Anion Gap 13, Blood Urea Nitrogen 49H, Creatinine 1.29, Estimat Glomerular Filtration Rate 43, BUN/Creatinine Ratio 38, Glucose Level 135H, Calcium Level 9.2 A/P: Assessment: H/O severe aortic stenosis - S/P TAVR with an Vargas 23 mm SHANIQUE S3 ultra on 09-22-22 in [place], [place] by Dr. Chery Cardiac cath on 09-19-[address] Chery at [facility] showed no epicardial dz NICM - Echocardioram of 09-17-[address] Chery showed LVEF 10% with severe global hypokinesis with trace pericardial effusion - Echocardiogram of 09-22-[address] Chery at [facility] showed LVEF 20-25% - Echocardiogram of 09-23-[address] Chery at [facility] showed LVEF 10-15% with a normally function aortic bioprosthesis, peak velocity 1.6 m /s, mean gradient 5 mmHg and calculated valve area 1.6 cm2 - per pt report and report from [facility] her LVEF is 10-20% H/O acute resp failure on 10-01-22 - Pneumonia, CHF, hypoxia at [facility] after TAVR discharge (10-01-22) - transferred to [facility] in [place], [place] - upon arrival to [facility] it was noted she has left sided facial droop, upper and LE extremity weakness CVA - CT of head on 10-01-22 at [facility] showed acute to subacute infarcts in the right frontal and left parietal region - Dr. 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 Lee of nephrology services Reported h/o HTN, however has been hypotensive - improved following reduction in medications HLD DM 2 Plan: * Tolerating low dose carvediolol - increase as tolerated * Cr has remained stable - add low dose CORIE and monitor BP and lab closely * Continue Eliquis * Continue dig - awaiting Dig level today * Titrate Heart failure meds if bp and renal function allow * Monitor labs MAURICIO MARTIN Oct 17, 2022 09:34
--- NOTE | 2022-10-17 09:35 | Physical Therapy Daily Note ---
PT Daily Note-Current Subjective Pt sitting in recliner upon arrival. Pt declines need for BR but agrees to PT. Pain Location: No Pain Reported Section J - Health Conditions 1. Rarely or not at all 2. Occasionally 3. Frequently 4. Almost constantly 8. Unable to answer Pain Effect on Sleep: 1 Pain Interference with Therapy: 1 Pain Interference w/Day-to-Day: 1 Mental Status Patient Orientation: Person, Place, Situation Transfers SCALE: Activities may be completed with or without assistive devices. 4-Eaaxuoszza-uvvrurv completes the activity by him/herself with no assistance from a helper. 5-Set-up or Clean-up Assistance-helper sets up or cleans up; patient completes activity. [place] assists only prior to or following the activity. 4-Supervision or Touching Assistance-helper provides verbal cues and/or touching/steadying and/or contact guard assistance as patient completes activity. Assistance may be provided throughout the activity or intermittently. 3-Partial/Moderate Assistance-helper does LESS THAN HALF the effort. [place] lifts, holds or supports trunk or limbs, but provides less than half the effort. 2-Substantial/Maximal Assistance-helper does MORE THAN HALF the effort. [place] lifts or holds trunk or limbs and provides more than half the effort. 2-Rseskkvaj-jqakcp does ALL the effort. Patient does none of the effort to complete the activity. Or, the assistance of 2 or more helpers is required for the patient to complete the activity. If activity was not attempted, code reason: 7-Patient Refused. 9-Not Applicable-not attempted and the patient did not perform the activity before the current illness, exacerbation or injury. 10-Not Attempted due to Environmental Limitations-(lack of equipment, weather restraints, etc.). 88-Not Attempted due to Medical Conditions or Safety Concerns. Sit to Stand (QC): 4 Weight Bearing Full Weight Bearing Full Weight Bearing Gait Training Does the Patient Walk?: Yes Distance: 100' x2 Walk 10 feet (QC): 3 Walk 50 ft with 2 Turns(QC): 3 Gait Assistive Device: FWW Exercises NuStep Minutes: 10 NuStep Workload: 2 Treatments TF to standing, declines need for BR. Pt amb in hallway & uses NuStep. Pt amb in hallway then returns to room to rest in recliner at end tx. All needs met, call light in hand. Assessment Current Status: Fair Progress Pt takes frequent RB for fatigue & pt's yvette is slow for amb. PT Prison Goals Radio Television Technical Director Goals PT Radio Television Technical Director Goals Time Frame: Oct 25, 2022 Roll Left & Right (QC): 4 (SBA) Sit to Lying (QC): 4 (SBA) Lying-Sitting on Side/Bed(QC): 4 (SBA) Sit to Stand (QC): 4 (CGA) Chair/Ekn-tl-Cfgil Xfer(QC): 4 (CGA) Toilet Transfer (QC): 4 (CGA) Car Transfer (QC): 4 (CGA) Does the Patient Walk: Yes Walk 10 feet (QC): 4 (CGA) Walk 50ft with 2 Turns (QC): 4 (CGA) Walk 150 ft (QC): 4 (CGA) Walking 10ft on Uneven Surface: 4 (CGA) 1 Step (curb) (QC): 4 (CGA) 4 Steps (QC): 4 (CGA) 12 Steps (QC): 88 Picking up an Object (QC): 4 (SBA using health care consultant) Wheel 50 feet with 2 turns (QC: 5 Wheel 150 feet: 5 PT Plan Problem List Problem List: Activity Tolerance Treatment/Plan Treatment Plan: Continue Plan of Care Treatment Plan: Bed Mobility, Education, Functional Activity Guera, Functional Strength, Group Therapy, Gait, Safety, Therapeutic Exercise, Transfers Treatment Duration: Oct 25, 2022 Frequency: At least 5 of 7 days/Wk (IRF) Estimated Hrs Per Day: 1.5 hours per day Patient and/or Family Agrees t: Yes Safety Risks/Education Patient Education: Gait Training, Transfer Techniques, Correct Positioning, Safety Issues Teaching Recipient: Patient Teaching Methods: Discussion Response to Teaching: Verbalize Understanding Time Time In: 815 Time Out: 915 DATE: Oct 17, 2022 Total Billed Treatment Time: 60 Total Billed Treatment 1, GT x2 (30m) & EX x2 (30m) MARQUITA FALK [employer] Oct 17, 2022 09:35
[2022-10-17] MEDS ORDERED: lisINopril 5 MG (PRINIVIL) TABLET PO NR (10:00)
--- NOTE | 2022-10-17 13:00 | Progress Note - Cardiology ---
Cardiology SOAP Progress Note Subjective: Gen weakness and L-sided weakness present No cp or palp or syncope No swelling No n/v/d Objective: I&O/Vital Signs 10/17/22 10/17/22 07:38 10:43 Temp 36.4 Pulse 108 Resp 18 B/P (MAP) 127/58 (81) Pulse Ox 99 O2 Delivery Room Air Room Air 10/17/22 00:00 Intake Total 850 ml Balance 850 ml Constitutional: AAO x 3, well-developed, well-nourished Respiratory: No accessory muscle use, No respiratory distress; chest expansion is symmetric, chest is bilaterally symmetric, lungs clear to auscultation Cardiovascular: regular rate-rhythm; No JVD; S1 and S2, systolic murmur Gastrointestional: No tender; soft, round, audible bowel sounds Extremities: no lower extremity edema bilateral Neurologic/Psychiatric: other (LUE and LLE weakness) Skin: No rash on exposed areas, No ulcerations on exposed areas Results/Procedures: Labs Laboratory Tests 10/16/22 15:52: Glucometer 119H 10/16/22 21:16: Glucometer 190H 10/17/22 04:57: White Blood Count 6.2, Red Blood Count 3.06L, Hemoglobin 9.0L, Hematocrit 28L, Mean Corpuscular Volume 92, Mean Corpuscular Hemoglobin 29, Mean Corpuscular Hemoglobin Concent 32, Red Cell Distribution Width 13.4, Platelet Count 256, Mean Platelet Volume 10.5, Immature Granulocyte % (Auto) 0, Neutrophils (%) (Auto) 53, Lymphocytes (%) (Auto) 27, Monocytes (%) (Auto) 10, Eosinophils (%) (Auto) 8, Basophils (%) (Auto) 1, Neutrophils # (Auto) 3.3, Lymphocytes # (Auto) 1.7, Monocytes # (Auto) 0.6, Eosinophils # (Auto) 0.5H, Basophils # (Auto) 0.1, Immature Granulocyte # (Auto) 0.0, Sodium Level 139, Potassium Level 3.7, Chloride Level 103, Carbon Dioxide Level 24, Anion Gap 12, Blood Urea Nitrogen 40H, Creatinine 1.30, Estimat Glomerular Filtration Rate 42, BUN/Creatinine Ratio 31, Glucose Level 124H, Calcium Level 9.5, Corrected Calcium 9.9, Total Bilirubin 0.3, Aspartate Amino Transf (AST/SGOT) 21, Alanine Aminotransferase ( ALT/SGPT) 17, Alkaline Phosphatase 63, Total Protein 6.4, Albumin 3.5 10/17/22 09:25: Digoxin Level 0.66L 10/17/22 11:21: Glucometer 148H Laboratory Tests 10/17/22 04:57 A/P: Assessment: H/O severe aortic stenosis - S/P TAVR with an Vargas 23 mm SHANIQUE S3 ultra on 09-22-22 in [place], [place] by Dr. Chery Cardiac cath on 09-19-[address] Chery at [facility] showed no epicardial dz NICM - Echocardioram of 09-17-[address] Chery showed LVEF 10% with severe global hypokinesis with trace pericardial effusion - Echocardiogram of 09-22-[address] Chery at [facility] showed LVEF 20-25% - Echocardiogram of 09-23-[address] Chery at [facility] showed LVEF 10-15% with a normally function aortic bioprosthesis, peak velocity 1.6 m/s, mean gradient 5 mmHg and calculated valve area 1.6 cm2 - per pt report and report from [facility] her LVEF is 10-20% H/O acute resp failure on 10-01-22 - Pneumonia, CHF, hypoxia at [facility] after TAVR discharge (10-01-22) - transferred to [facility] in [place], [place] - upon arrival to [facility] it was noted she has left sided facial droop, upper and LE extremity weakness CVA - CT of head on 10-01-22 at [facility] showed acute to subacute infarcts in the right frontal and left parietal region - Dr. 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 Lee of nephrology services Reported h/o HTN, however has been hypotensive - improved following reduction in medications HLD DM 2 Plan: * Tolerating low dose carvediolol - increase as tolerated * Cr has remained stable - add low dose CORIE and monitor BP and lab closely * Continue Eliquis * Continue dig - Dig level 0.66 on 10/17/22 * Titrate Heart failure meds as allowed by bp and renal function * Monitor labs KRISTIN MUNGUIA MD FACP FAC CCDS Oct 17, 2022 13:00
--- NOTE | 2022-10-17 15:48 | Therapy Group Daily Note ---
Therapy Daily Group Note Patient Education Topic Exercises Exercises LE Seated Exercise, UE Exercise Session Ratio (pt:therapist): 3:1 Goal of Session: Education on ARU Expectations, UE/LE Strengthing Goal Met for this Session: Yes Pt Benefit of Group: Contributions to Others, F/U Use of Strategies @Home, Increased Functional Safety, Increased Functional Strength, Improved Cognition, Recognition of Peers, Socialization Other/Notes Pt ambulated to OT/PT group at [facility] using W. Group consisted of introductions (name, place living, favorite activity in spring), socialization, B UE/LE seated exercises, education on ARU expectations and benefits of exercise. Pt introduced self appropriately and actively listened to peers. Pt asked questions and commented to peers throughout group. Pt demonstrated understanding of educational topics by voicing own strategies, exercises and experiences that related to topics. After session, pt sitting in recliner with call light/phone in reach. All needs met in room. Start Time: 13:00 Stop Time: 14:00 Total Billed Treatment Time: 60 Total Billed Treatment 1, GRP MARQUITA FALK MICROSOFT ARCHITECT Oct 17, 2022 15:48
[2022-10-17 19:46] VITALS: BP 96/59
[2022-10-17] MEDS: PRAMIPEXOLE 0.5 MG TAB (MIRAPEX) PO SCH (20:11)
[2022-10-17] MEDS: traZODone 50 MG (DESYREL) TAB PO SCH (20:11)
[2022-10-17] MEDS: PRAVASTATIN 20 MG TABLET PO SCH (20:11)
[2022-10-17] MEDS: DULoxetine 30 MG (CYMBALTA) CAP PO SCH (20:11)
[2022-10-17] MEDS: ALLEGRA 180 MG TABLET PO SCH (20:12)
--- NOTE | 2022-10-18 06:15 | PM&R Progress Note ---
Subjective HPI/CC On Admission Date Seen by Provider: Oct 18, 2022 Time Seen by Provider: 09:00 Subjective/Events-last exam 10/18/2022: Improved overall No pain reported No falls Walking well 10/17/2022: Doing well No pain reported Walking well No falls 10/16/2022: No major issues No pain reported Daughter at bedside 10/15/2022: Improved status No falls Improved function BM regimen working well 10/14/2022: Doing better Moving better Balance is the focus 10/13/2022: Doing well No pain reported BM regimen maintained No falls Balance focus via therapy 10/12/2022: Much improved Moving around well Balance is definitely affected Labs reviewed Cardiology consult appreciated 10/11/2022: Much improved status BM+ No falls No pain reported Reviewed meds and labs Creatinine noted Cardiology consult Review of Systems General: Fatigue, Malaise Objective Exam Vital Signs Vital Signs Date Time Temp Pulse Resp B/P (MAP) Pulse Ox O2 Delivery O2 Flow Rate FiO2 10/18/22 20:13 Room Air 10/18/22 19:06 36.4 99 20 108/62 (77) 99 Capillary Refill : General Appearance: No Apparent Distress, WD/WN, Chronically ill HEENT: PERRL/EOMI, Normal ENT Inspection, Pharynx Normal Neck: Full Range of Motion, Normal Inspection, Non Tender, Supple, Carotid Bruit Respiratory: Chest Non Tender, Lungs Clear, Normal Breath Sounds, No Accessory Muscle Use, No Respiratory Distress, Decreased Breath Sounds Cardiovascular: Regular Rate, Rhythm, No Edema, No Gallop, No JVD, No Murmur, Normal Peripheral Pulses Gastrointestinal: Normal Bowel Sounds, No Organomegaly, No Pulsatile Mass, Non Tender, Soft Back: Normal Inspection, No CVA Tenderness, No Vertebral Tenderness Extremity: Normal Capillary Refill, Normal Inspection, Normal Range of Motion, Non Tender, No Calf Tenderness, No Pedal Edema Neurologic/Psychiatric: Alert, Oriented x3, ui architect II-XII Norm as Tested, Abnormal Gait, Depressed Affect, Motor Weakness (left sided weakness) Skin: Normal Color, Warm/Dry Lymphatic: No Adenopathy Results/Procedures Lab Laboratory Tests 10/18/22 05:27 Patient resulted labs reviewed. FIM Transfers Therapy Code Descriptions/Definitions Functional [place] Measure: 0=Not Assessed/NA 4=Minimal Assistance 1=Total Assistance 5=Supervision or Setup 2=Maximal Assistance 6=Modified [place] 3=Moderate Assistance 7=Complete IndependenceSCALE: Activities may be completed with or without assistive devices. 5-Tfcljcysic-bxgjsxt completes the activity by him/herself with no assistance from a helper. 5-Set-up or Clean-up Assistance-helper sets up or cleans up; patient completes activity. [place] assists only prior to or following the activity. 4-Supervision or Touching Assistance-helper provides verbal cues and/or touching/steadying and/or contact guard assistance as patient completes activity. Assistance may be provided throughout the activity or intermittently. 3-Partial/Moderate Assistance-helper does LESS THAN HALF the effort. [place] lifts, holds or supports trunk or limbs, but provides less than half the effort. 2-Substantial/Maximal Assistance-helper does MORE THAN HALF the effort. [place] l ifts or holds trunk or limbs and provides more than half the effort. 5-Miqoxgvxg-wjmwes does ALL the effort. Patient does none of the effort to complete the activity. Or, the assistance of 2 or more helpers is required for the patient to complete the activity. If activity was not attempted, code reason: 7-Patient Refused. 9-Not Applicable-not attempted and the patient did not perform the activity before the current illness, exacerbation or injury. 10-Not Attempted due to Environmental Limitations-(lack of equipment, weather restraints, etc.). 88-Not Attempted due to Medical Conditions or Safety Concerns. Roll Left to Right (QC): 6 Sit to Lying (QC): 6 Sit to Stand (QC): 4 Chair/Hps-qp-Lfols Xfer(QC): 3 Car Transfer (QC): 3 Gait Training Does the Patient Walk?: Yes Distance: 100' x2 Walk 10 feet (QC): 3 Walk 50 ft with 2 Turns(QC): 3 Walk 150 ft (QC): 88 Walking 10ft/uneven surface-QC: 88 Gait Persons Needed: 1 Gait Assistive Device: FWW Wheelchair Training Does the Pt Use a Wheelchair?: Yes Distance: 150' Wheel 50 ft with 2 turns (QC): 5 Wheel 150 ft (QC): 3 Type of Wheelchair: Manual Stair Training 1 Step (curb) (QC): 88 4 Steps (QC): 88 12 Steps (QC): 88 Balance Picking up an Object (QC): 3 (min assist using a work and family life consultant) ADL-Treatment Eating (QC): 5 (set up assist to open container.) Oral Hygiene (QC): 4 (SBA seated at sink.) Shower/Bathe Self (QC): 4 Upper Body Dressing (QC): 4 (SBA, min VCs) Lower Body Dressing (QC): 3 (Min A with L pant hike.) On/Off Footwear (QC): 5 Toileting Hygiene (QC): 3 (Min A with pant hike on L side.) Toilet Transfer (QC): 4 (CGA on/off BSC over toilet.) Assessment/Plan Assessment and Plan Assess & Plan/Chief Complaint Assessment: 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
[2022-10-18 06:16] LABS: CALCIUM 9.2 MG/DL (8.5-10.1); CREATININE SERUM 1.29 MG/DL (0.60-1.30); POTASSIUM 3.6 MMOL/L (3.6-5.0)
[2022-10-18] MEDS: inSUlin ASPART (NovoLOG) 1 UNIT/0.01 ML (CHARGE PER UNIT) SC SCH ×4 (06:32→20:34)
--- NOTE | 2022-10-18 08:48 | Occupational Ther Daily Note ---
OT Current Status-Daily Note Subjective Pt up in recliner, agreeable to OT tx Mental Status/Objective Patient Orientation: Normal For Age ADL-Treatment Therapy Code Descriptions/Definitions Functional [place] Measure: 0=Not Assessed/NA 4=Minimal Assistance 1=Total Assistance 5=Supervision or Setup 2=Maximal Assistance 6=Modified [place] 3=Moderate Assistance 7=Complete IndependenceSCALE: Activities may be completed with or without assistive devices. 3-Fcmklclwhz-dgltavn completes the activity by him/herself with no assistance from a helper. 5-Set-up or Clean-up Assistance-helper sets up or cleans up; patient completes activity. [place] assists only prior to or following the activity. 4-Supervision or Touching Assistance-helper provides verbal cues and/or touching/steadying and/or contact guard assistance as patient completes activity. Assistance may be provided throughout the activity or intermittently. 3-Partial/Moderate Assistance-helper does LESS THAN HALF the effort. [place] lifts, holds or supports trunk or limbs, but provides less than half the effort. 2-Substantial/Maximal Assistance-helper does MORE THAN HALF the effort. [place] lifts or holds trunk or limbs and provides more than half the effort. 3-Kalyyrial-iumnsc does ALL the effort. Patient does none of the effort to complete the activity. Or, the assistance of 2 or more helpers is required for the patient to complete the activity. If activity was not attempted, code reason: 7-Patient Refused. 9-Not Applicable-not attempted and the patient did not perform the activity before the current illness, exacerbation or injury. 10-Not Attempted due to Environmental Limitations-(lack of equipment, weather restraints, etc.). 88-Not Attempted due to Medical Conditions or Safety Concerns. Shower/Bathe Self (QC): 4 (supervision) Upper Body Dressing (QC): 5 Lower Body Dressing (QC): 4 (SBA) On/Off Footwear: 4 (Supervision) Toileting Hygiene (QC): 4 (SBA) Toilet Transfer (QC): 4 (SBA) Other Treatment Pt in recliner, agreeable to OT Tx. Pt used FWW to transfer into bathroom and onto BSC over toilet, CGA. Pt completed toileting, then transferred to PR to complete showering and dressing. Pt stood at sink for hair brushing, CGA, then returned to recliner, CGA. Post tx, pt in recliner, call light in reach and all needs met, chair alarm activated. Education OT Patient Education: Correct positioning, Energy conservation, Modified ADL techniques, Progress toward Goal/Update tx plan, Purpose of tx/functional activities, Rehab process Teaching Recipient: Patient Teaching Methods: Discussion Response to Teaching: Verbalize Understanding OT Short Term Goals Short Term Goals Time Frame: Oct 19, 2022 Toileting hygiene: 4 Shower/bathe self: 4 Upper body dressin Lower body dressin Putting on/taking off footwear: 4 OT Halfway Goals Halfway Goals Time Frame: Nov 04, 2022 Acute change in mental status: 0 Inattention: 0 Disorganized thinkin Altered level of consciousness: 0 Eating (QC): 6 Oral Hygiene (QC): 6 Toileting Hygiene (QC): 6 Shower/Bathe Self (QC): 6 Upper Body Dressing (QC): 6 Lower Body Dressing (QC): 6 On/Off Footwear (QC): 6 Additional Goals: 1-Demonstrate ADL Tasks, 2-Verbalize Understanding, 3- ImproveStrength/Guera 1=Demonstrate adherence to instructed precautions during ADL tasks. 2=Patient will verbalize/demonstrate understanding of assistive devices/modifications for ADL. 3=Patient will improve strength/tolerance for activity to enable patient to perform ADL's. OT Education/Plan Problem List/Assessment Assessment: Decreased Activ Tolerance, Decreased UE Strength, Impaired Funct Balance, Impaired I ADL's, Impaired Self-Care Skills Discharge Recommendations Plan/Recommendations: Continue POC Treatment Plan/Plan of Care Patient would benefit from OT for education, treatment and training to promote independence in ADL's, mobility, safety and/or upper extremity function for ADL's. Plan of Care: ADL Retraining, Functional Mobility, Group Exercise/Act as Ind, UE Funct Exercise/Act, UE Neuromus Re-Ed/Coord, Visual/Perceptual Retrain Treatment Duration: Nov 04, 2022 Frequency: At least 5 of 7 days/Wk (IRF) Estimated Hrs Per Day: 1.5 hours per day Rehab Potential: Good Time Start Time: 07:45 Stop Time: 08:45 DATE: Oct 18, 2022 Total Time Billed (hr/min): 60 Billed Treatment Time 1, ADL 4 RENEE FUENTES OT Oct 18, 2022 08:48
[2022-10-18 09:10] VITALS: BP 116/55
[2022-10-18] MEDS: EMPAGLIFLOZIN 10 MG TABLET (JARDIANCE) PO SCH (09:11)
[2022-10-18] MEDS: PANTOPRAZOLE 40 MG (PROTONIX) TAB PO SCH (09:11)
[2022-10-18] MEDS: APIXABAN 5 MG (ELIQUIS) TABLET PO SCH ×2 (09:11→20:33)
[2022-10-18] MEDS: MECLIZINE 25 MG (ANTIVERT) TAB PO SCH ×3 (09:11→20:33)
[2022-10-18] MEDS: FUROSEMIDE 20 MG (LASIX) TAB PO SCH (09:11)
[2022-10-18] MEDS: DIGOXIN 0.125 MG (LANOXIN) TAB PO SCH (09:11)
[2022-10-18] MEDS: lisINopril 5 MG (PRINIVIL) TABLET PO SCH (09:11)
--- NOTE | 2022-10-18 11:27 | Progress Note - Cardiology ---
Cardiology SOAP Progress Note Objective: I&O/Vital Signs 10/19/22 10/19/22 07:38 08:35 Temp 36.3 Pulse 90 Resp 16 B/P (MAP) 114/69 (84) Pulse Ox 99 O2 Delivery Room Air Room Air 10/19/22 00:00 Intake Total 1380 ml Balance 1380 ml Constitutional: AAO x 3, well-developed, well-nourished Respiratory: No accessory muscle use, No respiratory distress; chest expansion is symmetric, chest is bilaterally symmetric, lungs clear to auscultation Cardiovascular: regular rate-rhythm; No JVD; S1 and S2, systolic murmur Gastrointestional: No tender; soft, round, audible bowel sounds Extremities: no lower extremity edema bilateral Neurologic/Psychiatric: other (LUE and LLE weakness) Skin: No rash on exposed areas, No ulcerations on exposed areas Results/Procedures: Labs Laboratory Tests 10/18/22 12:03: Glucometer 147H 10/18/22 16:22: Glucometer 169H 10/18/22 20:25: Glucometer 198H 10/19/22 05:31: Glucometer 124H A/P: Assessment: H/O severe aortic stenosis - S/P TAVR with an Vargas 23 mm SHANIQUE S3 ultra on 09-22-22 in [place], [place] by Dr. Chery Cardiac cath on 09-19-[address] Chery at [facility] showed no epicardial dz NICM - Echocardioram of 09-17-[address] Chery showed LVEF 10% with severe global hypokinesis with trace pericardial effusion - Echocardiogram of 09-22-[address] Chery at [facility] showed LVEF 20-25% - Echocardiogram of 09-23-[address] Chery at [facility] showed LVEF 10-15% with a normally function aortic bioprosthesis, peak velocity 1.6 m/s, mean gradient 5 mmHg and calculated valve area 1.6 cm2 - per pt report and report from [facility] her LVEF is 10-20% H/O acute resp failure on 10-01-22 - Pneumonia, CHF, hypoxia at [facility] after TAVR discharge (10-01-22) - transferred to [facility] in [place], [place] - upon arrival to [facility] it was noted she has left sided facial droop, upper and LE extremity weakness CVA - CT of head on 10-01-[address] [facility] showed acute to subacute infarcts in the right frontal and left parietal region - Dr. Callejas (neurologist at 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 Lee of nephrology services Reported h/o HTN, however has been hypotensive - improved following reduction in medications HLD DM 2 Plan: * Tolerating low dose carvediolol - increase as tolerated * Cr has remained stable - continue low dose CORIE and monitor BP and lab closely * Continue Eliquis * Continue dig - Dig level 0.66 on 10/17/22 * Titrate Heart failure meds as allowed by bp and renal function * Monitor labs MAURICIO MARTIN Oct 18, 2022 11:27
--- NOTE | 2022-10-18 11:59 | Physical Therapy Daily Note ---
PT Daily Note-Current Subjective Pt sitting in recliner upon arrival. Pt agrees to PT. Pain Location: No Pain Reported Section J - Health Conditions 1. Rarely or not at all 2. Occasionally 3. Frequently 4. Almost constantly 8. Unable to answer Pain Effect on Sleep: 1 Pain Interference with Therapy: 1 Pain Interference w/Day-to-Day: 1 Mental Status Patient Orientation: Person, Place, Situation Transfers SCALE: Activities may be completed with or without assistive devices. 2-Ldxqmbwnxf-fyrhvwk completes the activity by him/herself with no assistance from a helper. 5-Set-up or Clean-up Assistance-helper sets up or cleans up; patient completes activity. [place] assists only prior to or following the activity. 4-Supervision or Touching Assistance-helper provides verbal cues and/or touching/steadying and/or contact guard assistance as patient completes activity. Assistance may be provided throughout the activity or intermittently. 3-Partial/Moderate Assistance-helper does LESS THAN HALF the effort. [place] lifts, holds or supports trunk or limbs, but provides less than half the effort. 2-Substantial/Maximal Assistance-helper does MORE THAN HALF the effort. [place] lifts or holds trunk or limbs and provides more than half the effort. 0-Smnjgareb-khcowg does ALL the effort. Patient does none of the effort to complete the activity. Or, the assistance of 2 or more helpers is required for the patient to complete the activity. If activity was not attempted, code reason: 7-Patient Refused. 9-Not Applicable-not attempted and the patient did not perform the activity before the current illness, exacerbation or injury. 10-Not Attempted due to Environmental Limitations-(lack of equipment, weather restraints, etc.). 88-Not Attempted due to Medical Conditions or Safety Concerns. Sit to Stand (QC): 4 Toilet Transfer (QC): 4 Weight Bearing Full Weight Bearing Full Weight Bearing Gait Training Does the Patient Walk?: Yes Distance: 125' x2 Walk 10 feet (QC): 4 Walk 50 ft with 2 Turns(QC): 4 Gait Persons Needed: 1 Gait Assistive Device: FWW Pt reports tingling sensation in L LE which makes it difficult to control movement & balance. Pt can self correct if missteps though. Exercises NuStep Minutes: 10 NuStep Workload: 4 Treatments Pt declines need for BR, TF to standing and amb. in hallway. Pt uses NuStep followed by Seated Ex. Pt amb in hallway then returns to room to use BR and rests in recliner at end of tx w/all needs met, call light in hand. Assessment Current Status: Good Progress Pt is improving w/strength and muscle control but still reports tingling in L LE and at times of fatigue will demonstrate some stiffness or "toy soldier like walking" making it difficult to control movement at times PT Longterm Goals Longterm Goals PT Director Of Instrumental Music Goals Time Frame: Oct 25, 2022 Roll Left & Right (QC): 4 (SBA) Sit to Lying (QC): 4 (SBA) Lying-Sitting on Side/Bed(QC): 4 (SBA) Sit to Stand (QC): 4 (CGA) Chair/Aey-nf-Rztlq Xfer(QC): 4 (CGA) Toilet Transfer (QC): 4 (CGA) Car Transfer (QC): 4 (CGA) Does the Patient Walk: Yes Walk 10 feet (QC): 4 (CGA) Walk 50ft with 2 Turns (QC): 4 (CGA) Walk 150 ft (QC): 4 (CGA) Walking 10ft on Uneven Surface: 4 (CGA) 1 Step (curb) (QC): 4 (CGA) 4 Steps (QC): 4 (CGA) 12 Steps (QC): 88 Picking up an Object (QC): 4 (SBA using plumbing and heating mechanic) Wheel 50 feet with 2 turns (QC: 5 Wheel 150 feet: 5 PT Plan Problem List Problem List: Activity Tolerance, Safety, Gait Treatment/Plan Treatment Plan: Continue Plan of Care Treatment Plan: Bed Mobility, Education, Functional Activity Guera, Functional Strength, Group Therapy, Gait, Safety, Therapeutic Exercise, Transfers Treatment Duration: Oct 25, 2022 Frequency: At least 5 of 7 days/Wk (IRF) Estimated Hrs Per Day: 1.5 hours per day Patient and/or Family Agrees t: Yes Safety Risks/Education Patient Education: Gait Training, Safety Issues Teaching Recipient: Patient Teaching Methods: Discussion Response to Teaching: Verbalize Understanding Time Time In: 1030 Time Out: 1200 DATE: Oct 18, 2022 Total Billed Treatment Time: 90 Total Billed Treatment 1, EX x2 (30m), GT x2 (30m) & FA x2 (30m) MARQUITA FALK POST OFFICE MARKUP CLERK Oct 18, 2022 11:59
[2022-10-18] MEDS: SENNA W/DOCUSATE (SENOKOT S) TABLET PO SCH ×2 (12:05→19:46)
[2022-10-18] MEDS: DOCUSATE SODIUM 100 MG (COLACE) CAP PO SCH ×2 (12:05→19:46)
[2022-10-18] MEDS: polyethylene glycoL POWDER 17 GM (MIRALAX) PACK PO SCH ×2 (12:05→19:46)
--- NOTE | 2022-10-18 13:58 | Occupational Ther Daily Note ---
OT Current Status-Daily Note Subjective Pt sleeping in recliner, woke to name. Pt agrees to therapy. No c/o pain. Mental Status/Objective Patient Orientation: Person, Place, Time, Situation ADL-Treatment CGA for toilet transfer. CGA for balance while pt complete clothing manipulation, completes hygiene while sitting. After therapy, pt lying in bed with call light/phone in reach. All needs met in room. Therapy Code Descriptions/Definitions Functional [place] Measure: 0=Not Assessed/NA 4=Minimal Assistance 1=Total Assistance 5=Supervision or Setup 2=Maximal Assistance 6=Modified [place] 3=Moderate Assistance 7=Complete IndependenceSCALE: Activities may be completed with or without assistive devices. 3-Hkiuwyacyo-fzeflpr completes the activity by him/herself with no assistance from a helper. 5-Set-up or Clean-up Assistance-helper sets up or cleans up; patient completes activity. [place] assists only prior to or following the activity. 4-Supervision or Touching Assistance-helper provides verbal cues and/or touching/steadying and/or contact guard assistance as patient completes activity. Assistance may be provided throughout the activity or intermittently. 3-Partial/Moderate Assistance-helper does LESS THAN HALF the effort. [place] lifts, holds or supports trunk or limbs, but provides less than half the effort. 2-Substantial/Maximal Assistance-helper does MORE THAN HALF the effort. [place] lifts or holds trunk or limbs and provides more than half the effort. 7-Imfxpjxfp-wgeqjm does ALL the effort. Patient does none of the effort to complete the activity. Or, the assistance of 2 or more helpers is required for the patient to complete the activity. If activity was not attempted, code reason: 7-Patient Refused. 9-Not Applicable-not attempted and the patient did not perform the activity before the current illness, exacerbation or injury. 10-Not Attempted due to Environmental Limitations-(lack of equipment, weather restraints, etc.). 88-Not Attempted due to Medical Conditions or Safety Concerns. Toileting Hygiene (QC): 4 Toilet Transfer (QC): 4 Other Treatment Pt completed AAROM and AROM for shldr flexion and shldr abd/add using dowel ludwin. Pt has full ROM of L shldr though while completing dowel ludwin exercises against gravity and gravity eliminated. Pt able to control ascent and descent of L UE with repetition. Pt educated on using shldr elevation and retraction to st renh shldr girdle and overall stability of shldr. OT Short Term Goals Short Term Goals Time Frame: Oct 19, 2022 Toileting hygiene: 4 Shower/bathe self: 4 Upper body dressin Lower body dressin Putting on/taking off footwear: 4 OT Vac Press Operator Goals Long-Term Goals Time Frame: Nov 04, 2022 Acute change in mental status: 0 Inattention: 0 Disorganized thinkin Altered level of consciousness: 0 Eating (QC): 6 Oral Hygiene (QC): 6 Toileting Hygiene (QC): 6 Shower/Bathe Self (QC): 6 Upper Body Dressing (QC): 6 Lower Body Dressing (QC): 6 On/Off Footwear (QC): 6 Additional Goals: 1-Demonstrate ADL Tasks, 2-Verbalize Understanding, 3- ImproveStrength/Guera 1=Demonstrate adherence to instructed precautions during ADL tasks. 2=Patient will verbalize/demonstrate understanding of assistive devices/modifications for ADL. 3=Patient will improve strength/tolerance for activity to enable patient to perform ADL's. OT Education/Plan Problem List/Assessment Assessment: Decreased UE Strength, Impaired Self-Care Skills, Restricted Funct UE ROM Discharge Recommendations Plan/Recommendations: Continue POC Treatment Plan/Plan of Care Patient would benefit from OT for education, treatment and training to promote independence in ADL's, mobility, safety and/or upper extremity function for ADL's. Plan of Care: ADL Retraining, Functional Mobility, Group Exercise/Act as Ind, UE Funct Exercise/Act, UE Neuromus Re-Ed/Coord, Visual/Perceptual Retrain Treatment Duration: Nov 04, 2022 Frequency: At least 5 of 7 days/Wk (IRF) Estimated Hrs Per Day: 1.5 hours per day Rehab Potential: Good Time Start Time: 13:00 Stop Time: 13:30 DATE: Oct 18, 2022 Total Time Billed (hr/min): 30 Billed Treatment Time 1 visit-NM 2 (30 min) ADINA ENG Oct 18, 2022 13:58
--- NOTE | 2022-10-18 17:52 | Progress Note - Cardiology ---
Cardiology SOAP Progress Note Subjective: No cp or palp or syncope or shortness of breath No n/v/d No swelling Gen weakness present L-sided weakness improving Objective: I&O/Vital Signs 10/18/22 10/18/22 09:00 09:10 Temp 36.3 Pulse 94 Resp 20 B/P (MAP) 116/55 (75) Pulse Ox 99 O2 Delivery Room Air Room Air 10/18/22 00:00 Intake Total 1990 ml Balance 1990 ml Constitutional: AAO x 3, well-developed, well-nourished Respiratory: No accessory muscle use, No respiratory distress; chest expansion is symmetric, chest is bilaterally symmetric, lungs clear to auscultation Cardiovascular: regular rate-rhythm; No JVD; S1 and S2, systolic murmur Gastrointestional: No tender; soft, round, audible bowel sounds Extremities: no lower extremity edema bilateral Neurologic/Psychiatric: other (LUE and LLE weakness) Skin: No rash on exposed areas, No ulcerations on exposed areas Results/Procedures: Labs Laboratory Tests 10/17/22 20:10: Glucometer 172H 10/18/22 05:27: Sodium Level 139, Potassium Level 3.6, Chloride Level 103, Carbon Dioxide Level 23, Anion Gap 13, Blood Urea Nitrogen 49H, Creatinine 1.29, Estimat Glomerular Filtration Rate 43, BUN/Creatinine Ratio 38, Glucose Level 135H, Calcium Level 9.2 10/18/22 12:03: Glucometer 147H 10/18/22 16:22: Glucometer 169H Laboratory Tests 10/17/22 04:57 10/18/22 05:27 A/P: Assessment: H/O severe aortic stenosis - S/P TAVR with an Vargas 23 mm SHANIQUE S3 ultra on 09-22-22 in [place], [place] by Dr. Chery Cardiac cath on 09-19-[address] Chery at [facility] showed no epicardial dz NICM - Echocardioram of 09-17-[address] Chery showed LVEF 10% with severe global hypokinesis with trace pericardial effusion - Echocardiogram of 09-22-[address] Chery at [facility] showed LVEF 20-25% - Echocardiogram of 09-23-[address] Chery at [facility] showed LVEF 10-15% with a normally function aortic bioprosthesis, peak velocity 1.6 m/s, mean gradient 5 mmHg and calculated valve area 1.6 cm2 - per pt report and report from [facility] her LVEF is 10-20% H/O acute resp failure on 10-01-22 - Pneumonia, CHF, hypoxia at [facility] after TAVR discharge (10-01-22) - transferred to [facility] in [place], [place] - upon arrival to [facility] it was noted she has left sided facial droop, upper and LE extremi ty weakness CVA - CT of head on 10-01-[address] [facility] showed acute to subacute infarcts in the right frontal and left parietal region - Dr. Callejas (neurologist at 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 Lee of nephrology services Reported h/o HTN, however has been hypotensive - improved following reduction in medications HLD DM 2 Plan: * Tolerating low dose carvediolol - increase as tolerated * Cr has remained stable - continue low dose CORIE and monitor BP and lab closely * Continue Eliquis * Continue dig - Dig level 0.66 on 10/17/22 * Titrate Heart failure meds as allowed by bp and renal function * Monitor labs KRISTIN MUNGUIA MD [facility] Oct 18, 2022 17:52
[2022-10-18 19:06] VITALS: BP 108/62
[2022-10-18] MEDS: DULoxetine 30 MG (CYMBALTA) CAP PO SCH (20:33)
[2022-10-18] MEDS: traZODone 50 MG (DESYREL) TAB PO SCH (20:33)
[2022-10-18] MEDS: PRAMIPEXOLE 0.5 MG TAB (MIRAPEX) PO SCH (20:33)
[2022-10-18] MEDS: PRAVASTATIN 20 MG TABLET PO SCH (20:33)
[2022-10-18] MEDS: ALLEGRA 180 MG TABLET PO SCH (20:34)
--- NOTE | 2022-10-19 05:14 | PM&R Progress Note ---
Subjective HPI/CC On Admission Date Seen by Provider: Oct 19, 2022 Time Seen by Provider: 09:00 Subjective/Events-last exam 10/19/2022: Patient doing well No concerns Supportive care will continue Discharge plan for 1 week 10/18/2022: Improved overall No pain reported No falls Walking well 10/17/2022: Doing well No pain reported Walking well No falls 10/16/2022: No major issues No pain reported Daughter at bedside 10/15/2022: Improved status No falls Improved function BM regimen working well 10/14/2022: Doing better Moving better Balance is the focus 10/13/2022: Doing well No pain reported BM regimen maintained No falls Balance focus via therapy 10/12/2022: Much improved Moving around well Balance is definitely affected Labs reviewed Cardiology consult appreciated 10/11/2022: Much improved status BM+ No falls No pain reported Reviewed meds and labs Creatinine noted Cardiology consult Review of Systems General: Fatigue, Malaise Neurological: Incoordination Objective Exam Vital Signs Vital Signs Date Time Temp Pulse Resp B/P (MAP) Pulse Ox O2 Delivery O2 Flow Rate FiO2 10/19/22 08:35 Room Air 10/19/22 07:38 36.3 90 16 114/69 (84) 99 Capillary Refill : General Appearance: No Apparent Distress, WD/WN, Chronically ill HEENT: PERRL/EOMI, Normal ENT Inspection, Pharynx Normal Neck: Full Range of Motion, Normal Inspection, Non Tender, Supple, Carotid Bruit Respiratory: Chest Non Tender, Lungs Clear, Normal Breath Sounds, No Accessory Muscle Use, No Respiratory Distress, Decreased Breath Sounds Cardiovascular: Regular Rate, Rhythm, No Edema, No Gallop, No JVD, No Murmur, Normal Peripheral Pulses Gastrointestinal: Normal Bowel Sounds, No Organomegaly, No Pulsatile Mass, Non Tender, Soft Back: Normal Inspection, No CVA Tenderness, No Vertebral Tenderness Extremity: Normal Capillary Refill, Normal Inspection, Normal Range of Motion, Non Tender, No Calf Tenderness, No Pedal Edema Neurologic/Psychiatric: Alert, Oriented x3, assembler installer general II-XII Norm as Tested, Abnormal Gait, Depressed Affect, Motor Weakness (left sided weakness) Skin: Normal Color, Warm/Dry Lymphatic: No Adenopathy Results/Procedures Lab Patient resulted labs reviewed. FIM Transfers Therapy Code Descriptions/Definitions Functional [place] Measure: 0=Not Assessed/NA 4=Minimal Assistance 1=Total Assistance 5=Supervision or Setup 2=Maximal Assistance 6=Modified [place] 3=Moderate Assistance 7=Complete IndependenceSCALE: Activities may be completed with or without assistive devices. 0-Tcljhttjtt-knttkzi completes the activity by him/herself with no assistance from a helper. 5-Set-up or Clean-up Assistance-helper sets up or cleans up; patient completes activity. [place] assists only prior to or following the activity. 4-Supervision or Touching Assistance-helper provides verbal cues and/or touching/steadying and/or contact guard assistance as patient completes activity. Assistance may be provided throughout the activity or intermittently. 3-Partial/Moderate Assistance-helper does LESS THAN HALF the effort. [place] lifts, holds or supports trunk or limbs, but provides less than half the effort. 2-Substantial/Maximal Assistance-helper does MORE THAN HALF the effort. [place] lifts or holds trunk or limbs and provides more than half the effort. 6-Iotfkphtt-wvehnt does ALL the effort. Patient does none of the effort to complete the activity. Or, the assistance of 2 or more helpers is required for the patient to complete the activity. If activity was not attempted, code reason: 7-Patient Refused. 9-Not Applicable-not attempted and the patient did not perform the activity before the current illness, exacerbation or injury. 10-Not Attempted due to Environmental Limitations-(lack of equipment, weather restraints, etc.). 88-Not Attempted due to Medical Conditions or Safety Concerns. Roll Left to Right (QC): 6 Sit to Lying (QC): 6 Sit to Stand (QC): 4 Chair/Dmz-bt-Xwdod Xfer(QC): 3 Car Transfer (QC): 3 Gait Training Does the Patient Walk?: Yes Distance: 125' x2 Walk 10 feet (QC): 4 Walk 50 ft with 2 Turns(QC): 4 Walk 150 ft (QC): 88 Walking 10ft/uneven surface-QC: 88 Gait Persons Needed: 1 Gait Assistive Device: FWW Wheelchair Training Does the Pt Use a Wheelchair?: Yes Distance: 150' Wheel 50 ft with 2 turns (QC): 5 Wheel 150 ft (QC): 3 Type of Wheelchair: Manual Stair Training 1 Step (curb) (QC): 88 4 Steps (QC): 88 12 Steps (QC): 88 Balance Picking up an Object (QC): 3 (min assist using a gastroenterology teacher) ADL-Treatment Eating (QC): 5 (set up assist to open container.) Oral Hygiene (QC): 4 (SBA seated at sink.) Shower/Bathe Self (QC): 4 (supervision) Upper Body Dressing (QC): 5 Lower Body Dressing (QC): 4 (SBA) On/Off Footwear (QC): 4 (Supervision) Toileting Hygiene (QC): 4 Toilet Transfer (QC): 4 Assessment/Plan Assessment and Plan Assess & Plan/Chief Complaint Assessment: 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
[2022-10-19] MEDS: inSUlin ASPART (NovoLOG) 1 UNIT/0.01 ML (CHARGE PER UNIT) SC SCH ×4 (05:37→21:43)
[2022-10-19 07:38] VITALS: BP 114/69
[2022-10-19] MEDS: APIXABAN 5 MG (ELIQUIS) TABLET PO SCH ×2 (07:52→21:40)
[2022-10-19] MEDS: DIGOXIN 0.125 MG (LANOXIN) TAB PO SCH (07:52)
[2022-10-19] MEDS: EMPAGLIFLOZIN 10 MG TABLET (JARDIANCE) PO SCH (07:52)
[2022-10-19] MEDS: PANTOPRAZOLE 40 MG (PROTONIX) TAB PO SCH (07:52)
[2022-10-19] MEDS: lisINopril 5 MG (PRINIVIL) TABLET PO SCH (07:52)
[2022-10-19] MEDS: MECLIZINE 25 MG (ANTIVERT) TAB PO SCH ×3 (07:52→21:40)
[2022-10-19] MEDS: DOCUSATE SODIUM 100 MG (COLACE) CAP PO SCH ×2 (07:52→21:40)
[2022-10-19] MEDS: FUROSEMIDE 20 MG (LASIX) TAB PO SCH (07:52)
[2022-10-19] MEDS: SENNA W/DOCUSATE (SENOKOT S) TABLET PO SCH ×2 (07:54→21:40)
[2022-10-19] MEDS: polyethylene glycoL POWDER 17 GM (MIRALAX) PACK PO SCH ×2 (07:54→21:43)
--- NOTE | 2022-10-19 10:00 | Occupational Ther Daily Note ---
OT Current Status-Daily Note Subjective Pt alert, sitting in recliner. Pt c/o being tired, no pain. Pt agrees to therapy. Mental Status/Objective Patient Orientation: Person, Place, Time, Situation ADL-Treatment Pt completes grooming standing at sink with SBA for safety leaning on counter for support while using B UE to wash face. After set up, pt able to don/doff shoes by self. Therapy Code Descriptions/Definitions Functional [place] Measure: 0=Not Assessed/NA 4=Minimal Assistance 1=Total Assistance 5=Supervision or Setup 2=Maximal Assistance 6=Modified [place] 3=Moderate Assistance 7=Complete IndependenceSCALE: Activities may be completed with or without assistive devices. 8-Utfzqlyxwc-dxqbven completes the activity by him/herself with no assistance from a helper. 5-Set-up or Clean-up Assistance-helper sets up or cleans up; patient completes activity. [place] assists only prior to or following the activity. 4-Supervision or Touching Assistance-helper provides verbal cues and/or touching/steadying and/or contact guard assistance as patient completes activi ty. Assistance may be provided throughout the activity or intermittently. 3-Partial/Moderate Assistance-helper does LESS THAN HALF the effort. [place] lifts, holds or supports trunk or limbs, but provides less than half the effort. 2-Substantial/Maximal Assistance-helper does MORE THAN HALF the effort. [place] lifts or holds trunk or limbs and provides more than half the effort. 0-Lfefrvkxz-esnwkq does ALL the effort. Patient does none of the effort to complete the activity. Or, the assistance of 2 or more helpers is required for the patient to complete the activity. If activity was not attempted, code reason: 7-Patient Refused. 9-Not Applicable-not attempted and the patient did not perform the activity before the current illness, exacerbation or injury. 10-Not Attempted due to Environmental Limitations-(lack of equipment, weather restraints, etc.). 88-Not Attempted due to Medical Conditions or Safety Concerns. On/Off Footwear: 5 Other Treatment Pt ambulated using FWW to therapy gym with CGA for safety. Pt completed B UE NM exercises to build strength and correct movement thoughout L UE. Pt is demonstrating increased control while in supine with L UE for shldr flexion/ext, shldr abd/add and bicep flex/ext, 1 set 20 reps of each. Pt then completed B UE simultaneous movement by reaching and grasping beanbags with each hand and sarah pping at same time to encourage B UE coordination, 30x's. Arm bike completed with L UE only, forward rotation 2 min and backward rotation 2 min. Wrist flex, ext, rad dev and uln dev with 1/4# wt on hand 2 sets 10 reps each with L wrist. Multiple fine motor tasks with B hands to work on dexterity and coordination of L fingers and strength of grasp. After session, pt sitting in recliner with call light/phone in reach. All needs met in room. OT Short Term Goals Short Term Goals Time Frame: Oct 19, 2022 Toileting hygiene: 4 Shower/bathe self: 4 Upper body dressin Lower body dressin Putting on/taking off footwear: 4 OT Detention Goals Plaster Maker Goals Time Frame: Nov 04, 2022 Acute change in mental status: 0 Inattention: 0 Disorganized thinkin Altered level of consciousness: 0 Eating (QC): 6 Oral Hygiene (QC): 6 Toileting Hygiene (QC): 6 Shower/Bathe Self (QC): 6 Upper Body Dressing (QC): 6 Lower Body Dressing (QC): 6 On/Off Footwear (QC): 6 Additional Goals: 1-Demonstrate ADL Tasks, 2-Verbalize Understanding, 3- ImproveStrength/[place] 1=Demonstrate adherence to instructed precautions during ADL tasks. 2=Patient will verbalize/demonstrate understanding of assistive device s/modifications for ADL. 3=Patient will improve strength/tolerance for activity to enable patient to perform ADL's. OT Education/Plan Problem List/Assessment Assessment: Decreased Activ Tolerance, Decreased UE Strength, Impaired Funct Balance, Impaired Self-Care Skills, Restricted Funct UE ROM Discharge Recommendations Plan/Recommendations: Continue POC Treatment Plan/Plan of Care Patient would benefit from OT for education, treatment and training to promote independence in ADL's, mobility, safety and/or upper extremity function for ADL's. Plan of Care: ADL Retraining, Functional Mobility, Group Exercise/Act as Ind, UE Funct Exercise/Act, UE Neuromus Re-Ed/Coord, Visual/Perceptual Retrain Treatment Duration: Nov 04, 2022 Frequency: At least 5 of 7 days/Wk (IRF) Estimated Hrs Per Day: 1.5 hours per day Rehab Potential: Good Time Start Time: 08:30 Stop Time: 10:00 DATE: Oct 19, 2022 Total Time Billed (hr/min): 90 Billed Treatment Time 1 visit-ADL 1 (15 min) NM 5 (75 min) ADINA ENG Oct 19, 2022 10:00
--- NOTE | 2022-10-19 10:38 | Progress Note - Cardiology ---
Cardiology SOAP Progress Note Subjective: Sitting up in recliner at the bedside Feels she is getting stronger No c/o CP, SOB or palpitations Objective: I&O/Vital Signs 10/20/22 07:12 Temp 36.4 Pulse 86 Resp 18 B/P (MAP) 119/58 (78) Pulse Ox 99 O2 Delivery Room Air 10/20/22 00:00 Intake Total 1297 ml Balance 1297 ml Constitutional: AAO x 3, well-developed, well-nourished Respiratory: No accessory muscle use, No respiratory distress; chest expansion is symmetric, chest is bilaterally symmetric, lungs clear to auscultation Cardiovascular: regular rate-rhythm; No JVD; S1 and S2, systolic murmur Gastrointestional: No tender; soft, round, audible bowel sounds Extremities: no lower extremity edema bilateral Neurologic/Psychiatric: other (LUE and LLE weakness) Skin: No rash on exposed areas, No ulcerations on exposed areas Results/Procedures: Labs Laboratory Tests 10/19/22 11:47: Glucometer 112H 10/19/22 15:34: Glucometer 230H 10/19/22 21:07: Glucometer 146H 10/20/22 05:17: Sodium Level 137, Potassium Level 4.2, Chloride Level 102, Carbon Dioxide Level 22, Anion Gap 13, Blood Urea Nitrogen 41H, Creatinine 1.11, Estimat Glomerular Filtration Rate 51, BUN/Creatinine Ratio 37, Glucose Level 140H, Calcium Level 9.3, Digoxin Level 0.76L A/P: Assessment: H/O severe aortic stenosis - S/P TAVR with an Vargas 23 mm SHANIQUE S3 ultra on 09-22-22 in [place], [place] by Dr. Chery Cardiac cath on 09-19-[address] Chery at [facility] showed no epicardial dz NICM - Echocardioram of 09-17-[address] Chery showed LVEF 10% with severe global hypokinesis with trace pericardial effusion - Echocardiogram of 09-22-[address] Chery at [facility] showed LVEF 20-25% - Echocardiogram of 09-23-[address] Chery at [facility] showed LVEF 10-15% with a normally function aortic bioprosthesis, peak velocity 1.6 m/s, mean gradient 5 mmHg and calculated valve area 1.6 cm2 - per pt report and report from [facility] her LVEF is 10-20% H/O acute resp failure on 10-01-22 - Pneumonia, CHF, hypoxia at [facility] after TAVR discharge (10-01-22) - transferred to [facility] in [place], [place] - upon arrival to [facility] it was noted she has left sided facial droop, upper and LE extremity weakness CVA - CT of head on 10-01-22 at [facility] showed acute to subacute infarcts in the right frontal and left parietal region - Dr. Callejas (neurologist at [facility]) note of 10-01-22 states cardioembolic stroke d/t multiple hypodensisties seen on CT (see above) - CTA of the neck on 10-01-22 at [facility] sowed no stenosis of the cervical carotid or vertebral arteries - Eliquis started at [facility] CKD 3 - follows with Dr. Lee of nephrology services Reported h/o HTN, however has been hypotensive - improved following reduction in medications HLD DM 2 Plan: * Tolerating low dose carvediolol - we will titrate dose up today * Cr has remained stable - continue low dose CORIE and monitor BP and lab closely * Continue Eliquis * Continue dig - Dig level 0.66 on 10/17/22 * Titrate Heart failure meds as allowed by bp and renal function * Monitor labs MAURICIO MARTIN Oct 19, 2022 10:38
--- NOTE | 2022-10-19 16:03 | Physical Therapy Daily Note ---
PT Daily Note-Current Subjective Pt sitting in chair upon arrival. Pt agrees to PT. Pain Location: Left Pain Description: Tingling Comment: Pt reports L LE tingling as it has been in previous tx. Section J - Health Conditions 1. Rarely or not at all 2. Occasionally 3. Frequently 4. Almost constantly 8. Unable to answer Pain Effect on Sleep: 1 Pain Interference with Therapy: 1 Pain Interference w/Day-to-Day: 1 Mental Status Patient Orientation: Person, Place, Situation Transfers SCALE: Activities may be completed with or without assistive devices. 7-Lgtynmgyvb-ejslgyc completes the activity by him/herself with no assistance from a helper. 5-Set-up or Clean-up Assistance-helper sets up or cleans up; patient completes activity. [place] assists only prior to or following the activity. 4-Supervision or Touching Assistance-helper provides verbal cues and/or touching/steadying and/or contact guard assistance as patient completes activity. Assistance may be provided throughout the activity or intermittently. 3-Partial/Moderate Assistance-helper does LESS THAN HALF the effort. [place] lifts, holds or supports trunk or limbs, but provides less than half the effort. 2-Substantial/Maximal Assistance-helper does MORE THAN HALF the effort. [place] lifts or holds trunk or limbs and provides more than half the effort. 3-Alwpcfhfj-tylfqg does ALL the effort. Patient does none of the effort to complete the activity. Or, the assistance of 2 or more helpers is required for the patient to complete the activity. If activity was not attempted, code reason: 7-Patient Refused. 9-Not Applicable-not attempted and the patient did not perform the activity before the current illness, exacerbation or injury. 10-Not Attempted due to Environmental Limitations-(lack of equipment, weather restraints, etc.). 88-Not Attempted due to Medical Conditions or Safety Concerns. Sit to Stand (QC): 5 Weight Bearing Full Weight Bearing Full Weight Bearing Gait Training Does the Patient Walk?: Yes Distance: 125' x2 Walk 10 feet (QC): 4 Walk 50 ft with 2 Turns(QC): 4 Gait Persons Needed: 1 Gait Assistive Device: FWW Exercises NuStep Minutes: 12 NuStep Workload: 4 Treatments TF to standing and amb in hallway. Pt uses NuStep w/couple RB as needed. Pt again amb in hallway before returning to room to rest. All needs met, call light in hand. Assessment Current Status: Good Progress Pt is improving slightly w/muscle control but still walks like "toy soldier" when stiff or fatigued. PT Usp Goals Usp Goals PT [place] Out Goals Time Frame: Oct 25, 2022 Roll Left & Right (QC): 4 (SBA) Sit to Lying (QC): 4 (SBA) Lying-Sitting on Side/Bed(QC): 4 (SBA) Sit to Stand (QC): 4 (CGA) Chair/Avm-sf-Bpkrw Xfer(QC): 4 (CGA) Toilet Transfer (QC): 4 (CGA) Car Transfer (QC): 4 (CGA) Does the Patient Walk: Yes Walk 10 feet (QC): 4 (CGA) Walk 50ft with 2 Turns (QC): 4 (CGA) Walk 150 ft (QC): 4 (CGA) Walking 10ft on Uneven Surface: 4 (CGA) 1 Step (curb) (QC): 4 (CGA) 4 Steps (QC): 4 (CGA) 12 Steps (QC): 88 Picking up an Object (QC): 4 (SBA using community educator) Wheel 50 feet with 2 turns (QC: 5 Wheel 150 feet: 5 PT Plan Problem List Problem List: Activity Tolerance, Gait Treatment/Plan Treatment Plan: Continue Plan of Care Treatment Plan: Bed Mobility, Education, Functional Activity [place], Functional Strength, Group Therapy, Gait, Safety, Therapeutic Exercise, Transfers Treatment Duration: Oct 25, 2022 Frequency: At least 5 of 7 days/Wk (IRF) Estimated Hrs Per Day: 1.5 hours per day Patient and/or Family Agrees t: Yes Safety Risks/Education Patient Education: Gait Training, Correct Positioning Teaching Recipient: Patient Teaching Methods: Discussion Response to Teaching: Verbalize Understanding Time Time In: 1050 Time Out: 1135 DATE: Oct 19, 2022 Total Billed Treatment Time: 45 Total Billed Treatment 1, GT (15m), FA (15m) & EX (15m) MARQUITA FALK PTA Oct 19, 2022 16:03
--- NOTE | 2022-10-19 16:36 | Physical Therapy Daily Note ---
PT Daily Note-Current Subjective Pt sitting in recliner upon arrival. Pt agrees to PT. Pain Location: Left Pain Description: Tingling Comment: Pt reports L LE tingling as it has been previous tx. Section J - Health Conditions 1. Rarely or not at all 2. Occasionally 3. Frequently 4. Almost constantly 8. Unable to answer Pain Effect on Sleep: 1 Pain Interference with Therapy: 1 Pain Interference w/Day-to-Day: 1 Mental Status Patient Orientation: Person, Place, Situation Transfers SCALE: Activities may be completed with or without assistive devices. 2-Zjrweqhihp-ktljhbu completes the activity by him/herself with no assistance from a helper. 5-Set-up or Clean-up Assistance-helper sets up or cleans up; patient completes activity. [place] assists only prior to or following the activity. 4-Supervision or Touching Assistance-helper provides verbal cues and/or touching/steadying and/or contact guard assistance as patient completes activity. Assistance may be provided throughout the activity or intermittently. 3-Partial/Moderate Assistance-helper does LESS THAN HALF the effort. [place] lifts, holds or supports trunk or limbs, but provides less than half the effort. 2-Substantial/Maximal Assistance-helper does MORE THAN HALF the effort. [place] lifts or holds trunk or limbs and provides more than half the effort. 4-Ldrbqccrn-sdcapw does ALL the effort. Patient does none of the effort to complete the activity. Or, the assistance of 2 or more helpers is required for the patient to complete the activity. If activity was not attempted, code reason: 7-Patient Refused. 9-Not Applicable-not attempted and the patient did not perform the activity before the current illness, exacerbation or injury. 10-Not Attempted due to Environmental Limitations-(lack of equipment, weather restraints, etc.). 88-Not Attempted due to Medical Conditions or Safety Concerns. Sit to Stand (QC): 4 Weight Bearing Full Weight Bearing Full Weight Bearing Gait Training Does the Patient Walk?: Yes Distance: 125' x2 Walk 10 feet (QC): 4 Walk 50 ft with 2 Turns(QC): 4 Gait Persons Needed: 1 Gait Assistive Device: FWW Instruction given to family during amb. Treatments Pt, family & VP OF MARKETING discuss options for [facility] pt wants that won't be covered by insurance due to present progress. Pt wants [facility] for community situations pt wants to attend w/family but cannot walk community distances at this time. VP OF MARKETING assisted w/finding and appropriate but cost effective & light/not heavy version that family could use for pt. Pt also practiced TF and amb. in hallway before returning to room to rest in recliner w/all needs met, call light in hand. Assessment Current Status: Good Progress Pt and family are in good spirits with good understanding & plan for after d/c AE. PT Candy Mixer Goals Group Home Goals PT Group Home Goals Time Frame: Oct 25, 2022 Roll Left & Right (QC): 4 (SBA) Sit to Lying (QC): 4 (SBA) Lying-Sitting on Side/Bed(QC): 4 (SBA) Sit to Stand (QC): 4 (CGA) Chair/Iwc-oi-Rglqz Xfer(QC): 4 (CGA) Toilet Transfer (QC): 4 (CGA) Car Transfer (QC): 4 (CGA) Does the Patient Walk: Yes Walk 10 feet (QC): 4 (CGA) Walk 50ft with 2 Turns (QC): 4 (CGA) Walk 150 ft (QC): 4 (CGA) Walking 10ft on Uneven Surface: 4 (CGA) 1 Step (curb) (QC): 4 (CGA) 4 Steps (QC): 4 (CGA) 12 Steps (QC): 88 Picking up an Object (QC): 4 (SBA using brain surgeon) Wheel 50 feet with 2 turns (QC: 5 Wheel 150 feet: 5 PT Plan Problem List Problem List: Activity Tolerance Treatment/Plan Treatment Plan: Continue Plan of Care Treatment Plan: Bed Mobility, Education, Functional Activity Guera, Functional Strength, Group Therapy, Gait, Safety, Therapeutic Exercise, Transfers Treatment Duration: Oct 25, 2022 Frequency: At least 5 of 7 days/Wk (IRF) Estimated Hrs Per Day: 1.5 hours per day Patient and/or Family Agrees t: Yes Safety Risks/Education Patient Education: Gait Training, Correct Positioning, W/C Management Teaching Recipient: Patient, Family Teaching Methods: Discussion Response to Teaching: Verbalize Understanding Time Time In: 1430 Time Out: 1515 DATE: Oct 19, 2022 Total Billed Treatment Time: 45 Total Billed Treatment 1, GT (20m) & FA x2 (25m) MARQUITA FLAK VP OF MARKETING Oct 19, 2022 16:36
--- NOTE | 2022-10-19 18:38 | Progress Note - Cardiology ---
Cardiology SOAP Progress Note Subjective: Less short of breath No cp or palp or syncope Gen weakness and malaise L-sided weakness slowly improving No n/v/d Objective: I&O/Vital Signs 10/19/22 10/19/22 07:38 08:35 Temp 36.3 Pulse 90 Resp 16 B/P (MAP) 114/69 (84) Pulse Ox 99 O2 Delivery Room Air Room Air 10/19/22 00:00 Intake Total 1380 ml Balance 1380 ml Constitutional: AAO x 3, well-developed, well-nourished Respiratory: No accessory muscle use, No respiratory distress; chest expansion is symmetric, chest is bilaterally symmetric, lungs clear to auscultation Cardiovascular: regular rate-rhythm; No JVD; S1 and S2, systolic murmur Gastrointestional: No tender; soft, round, audible bowel sounds Extremities: no lower extremity edema bilateral Neurologic/Psychiatric: other (LUE and LLE weakness) Skin: No rash on exposed areas, No ulcerations on exposed areas Results/Procedures: Labs Laboratory Tests 10/18/22 20:25: Glucometer 198H 10/19/22 05:31: Glucometer 124H 10/19/22 11:47: Glucometer 112H 10/19/22 15:34: Glucometer 230H Laboratory Tests 10/18/22 05:27 A/P: Assessment: H/o severe aortic stenosis - S/P TAVR with an Vargas 23 mm SHANIQUE S3 ultra on 09-22-22 in [place], [place] by Dr. Chery Cardiac cath on 09-19-[address] Chery at [facility] showed no epicardial dz NICM - Echocardioram of 09-17-[address] Chery showed LVEF 10% with severe global hypokinesis with trace pericardial effusion - Echocardiogram of 09-22-[address] Chery at [facility] showed LVEF 20-25% - Echocardiogram of 09-23-[address] Chery at [facility] showed LVEF 10-15% with a normally function aortic bioprosthesis, peak velocity 1.6 m/s, mean gradient 5 mmHg and calculated valve area 1.6 cm2 - per pt report and report from [facility]' her LVEF is 10-20% H/O acute resp failure on 10-01-22 - Pneumonia, CHF, hypoxia at [facility] after TAVR discharge (10-01-22) - transferred to [facility] in [place], [place] - upon arrival to [facility] it was noted she has left sided facial droop, upper and LE extremity weakness CVA - CT of head on 10-01-22 at [facility] showed acute to subacute infarcts in the right frontal and left parietal region - Dr. 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 Lee of nephrology services Reported h/o HTN, however has been hypotensive - improved following reduction in medications HLD DM 2 Plan: * Tolerating low dose carvediolol - we will titrate dose up today * Cr has remained stable - continue low dose CORIE and monitor BP and lab closely * Continue Eliquis * Continue dig - Dig level 0.66 on 10/17/22 * Titrate Heart failure meds as allowed by bp and renal function * Monitor labs * Repeat echo KRISTIN MUNGUIA MD [facility] Oct 19, 2022 18:38
[2022-10-19 19:50] VITALS: BP 112/55
[2022-10-19] MEDS: ALLEGRA 180 MG TABLET PO SCH (21:38)
[2022-10-19] MEDS: traZODone 50 MG (DESYREL) TAB PO SCH (21:38)
[2022-10-19] MEDS: DULoxetine 30 MG (CYMBALTA) CAP PO SCH (21:38)
[2022-10-19] MEDS: PRAMIPEXOLE 0.5 MG TAB (MIRAPEX) PO SCH (21:39)
[2022-10-19] MEDS: PRAVASTATIN 20 MG TABLET PO SCH (21:39)
--- NOTE | 2022-10-20 05:00 | PM&R Progress Note ---
Subjective HPI/CC On Admission Date Seen by Provider: Oct 20, 2022 Time Seen by Provider: 12:00 Subjective/Events-last exam 10/20/2022: No major issues Doing better every day BM+ No falls 10/19/2022: Patient doing well No concerns Supportive care will continue Discharge plan for 1 week 10/18/2022: Improved overall No pain reported No falls Walking well 10/17/2022: Doing well No pain reported Walking well No falls 10/16/2022: No major issues No pain reported Daughter at bedside 10/15/2022: Improved status No falls Improved function BM regimen working well 10/14/2022: Doing better Moving better Balance is the focus 10/13/2022: Doing well No pain reported BM regimen maintained No falls Balance focus via therapy 10/12/2022: Much improved Moving around well Balance is definitely affected Labs reviewed Cardiology consult appreciated 10/11/2022: Much improved status BM+ No falls No pain reported Reviewed meds and labs Creatinine noted Cardiology consult Review of Systems General: Fatigue, Malaise Objective Exam Vital Signs Vital Signs Date Time Temp Pulse Resp B/P (MAP) Pulse Ox O2 Delivery O2 Flow Rate FiO2 10/20/22 21:15 97 Room Air 10/20/22 19:16 36.2 94 18 99/52 (68) Capillary Refill : General Appearance: No Apparent Distress, WD/WN, Chronically ill HEENT: PERRL/EOMI, Normal ENT Inspection, Pharynx Normal Neck: Full Range of Motion, Normal Inspection, Non Tender, Supple, Carotid Bruit Respiratory: Chest Non Tender, Lungs Clear, Normal Breath Sounds, No Accessory Muscle Use, No Respiratory Distress, Decreased Breath Sounds Cardiovascular: Regular Rate, Rhythm, No Edema, No Gallop, No JVD, No Murmur, Normal Peripheral Pulses Gastrointestinal: Normal Bowel Sounds, No Organomegaly, No Pulsatile Mass, Non Tender, Soft Back: Normal Inspection, No CVA Tenderness, No Vertebral Tenderness Extremity: Normal Capillary Refill, Normal Inspection, Normal Range of Motion, Non Tender, No Calf Tenderness, No Pedal Edema Neurologic/Psychiatric: Alert, Oriented x3, special programs director II-XII Norm as Tested, Abnormal Gait, Depressed Affect, Motor Weakness (left sided weakness) Skin: Normal Color, Warm/Dry Lymphatic: No Adenopathy Results/Procedures Lab Laboratory Tests 10/20/22 05:17 Patient resulted labs reviewed. FIM Transfers Therapy Code Descriptions/Definitions Functional [place] Measure: 0=Not Assessed/NA 4=Minimal Assistance 1=Total Assistance 5=Supervision or Setup 2=Maximal Assistance 6=Modified [place] 3=Moderate Assistance 7=Complete IndependenceSCALE: Activities may be completed with or without assistive devices. 2-Bkplfvoshw-krtcnpz completes the activity by him/herself with no assistance from a helper. 5-Set-up or Clean-up Assistance-helper sets up or cleans up; patient completes activity. [place] assists only prior to or following the activity. 4-Supervision or Touching Assistance-helper provides verbal cues and/or touching/steadying and/or contact guard assistance as patient completes activity. Assistance may be provided throughout the activity or intermittently. 3-Partial/Moderate Assistance-helper does LESS THAN HALF the effort. [place] lifts, holds or supports trunk or limbs, but provides less than half the effort. 2-Substantial/Maximal Assistance-helper does MORE THAN HALF the effort. [place] lifts or holds trunk or limbs and provides more than half the effort. 9-Nrwkdzonr-ftkqkh does ALL the effort. Patient does none of the effort to complete the activity. Or, the assistance of 2 or more helpers is required for the patient to complete the activity. If activity was not attempted, code reason: 7-Patient Refused. 9-Not Applicable-not attempted and the patient did not perform the activity before the current illness, exacerbation or injury. 10-Not Attempted due to Environmental Limitations-(lack of equipment, weather re straints, etc.). 88-Not Attempted due to Medical Conditions or Safety Concerns. Roll Left to Right (QC): 6 Sit to Lying (QC): 6 Sit to Stand (QC): 4 Chair/Ign-kp-Qiqgp Xfer(QC): 3 Car Transfer (QC): 3 Gait Training Does the Patient Walk?: Yes Distance: 125' x2 Walk 10 feet (QC): 4 Walk 50 ft with 2 Turns(QC): 4 Walk 150 ft (QC): 88 Walking 10ft/uneven surface-QC: 88 Gait Persons Needed: 1 Gait Assistive Device: FWW Wheelchair Training Does the Pt Use a Wheelchair?: Yes Distance: 150' Wheel 50 ft with 2 turns (QC): 5 Wheel 150 ft (QC): 3 Type of Wheelchair: Manual Stair Training 1 Step (curb) (QC): 88 4 Steps (QC): 88 12 Steps (QC): 88 Balance Picking up an Object (QC): 3 (min assist using a evaporator repairer) ADL-Treatment Eating (QC): 5 (set up assist to open container.) Oral Hygiene (QC): 4 (SBA seated at sink.) Shower/Bathe Self (QC): 4 (supervision) Upper Body Dressing (QC): 5 Lower Body Dressing (QC): 4 (SBA) On/Off Footwear (QC): 5 Toileting Hygiene (QC): 4 Toilet Transfer (QC): 4 Assessment/Plan Assessment and Plan Assess & Plan/Chief Complaint Assessment: 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
[2022-10-20 05:52] LABS: POTASSIUM 4.2 MMOL/L (3.6-5.0)
[2022-10-20 05:53] LABS: CALCIUM 9.3 MG/DL (8.5-10.1)
[2022-10-20] MEDS: inSUlin ASPART (NovoLOG) 1 UNIT/0.01 ML (CHARGE PER UNIT) SC SCH ×5 (05:54→21:15)
[2022-10-20 05:58] LABS: CREATININE SERUM 1.11 MG/DL (0.60-1.30)
[2022-10-20 07:12] VITALS: BP 119/58
--- NOTE | 2022-10-20 07:23 | Occupational Ther Daily Note ---
OT Current Status-Daily Note Subjective Pt alert, sitting in recliner. Pt agrees to therapy. No c/o pain. Mental Status/Objective Patient Orientation: Person, Place, Time, Situation ADL-Treatment Pt agrees to shower. Pt is able to open packages and most containers, has difficulty with small twist lids, then uses regular utensils to eat. Pt educated on devices that assist with gripping small to large lids, pt demonst rated ability to open small twist lids. Pt ambulated with CGA for safety using FWW to bathroom. Transferred to shower using FWW with CGA for safety. Sitting 100% of the time, pt able to complete shower using hand held shower and grabbars independently. Pt states that she has walk-in shower and will be getting shower seat to use in shower. After set up, pt is able to complete upper body dressing and footwear independently. Supervision for safety in standing while pt hikes pants over hips, thread pants over feet by self after set up. Pt donned/doffed CHON hose by self after setup. Pt stood at sink with SBA to brush hair. After session, pt sitting in recliner with call light/phone in reach. Safety measures in place. Therapy Code Descriptions/Definitions Functional [place] Measure: 0=Not Assessed/NA 4=Minimal Assistance 1=Total Assistance 5=Supervision or Setup 2=Maximal Assistance 6=Modified [place] 3=Moderate Assistance 7=Complete IndependenceSCALE: Activities may be completed with or without assistive devices. 7-Thlursayir-brdntsy completes the activity by him/herself with no assistance from a helper. 5-Set-up or Clean-up Assistance-helper sets up or cleans up; patient completes activity. [place] assists only prior to or following the activity. 4-Supervision or Touching Assistance-helper provides verbal cues and/or touching/steadying and/or contact guard assistance as patient completes acti vity. Assistance may be provided throughout the activity or intermittently. 3-Partial/Moderate Assistance-helper does LESS THAN HALF the effort. [place] lifts, holds or supports trunk or limbs, but provides less than half the effort. 2-Substantial/Maximal Assistance-helper does MORE THAN HALF the effort. [place] lifts or holds trunk or limbs and provides more than half the effort. 4-Dpefrtgnz-uetmmg does ALL the effort. Patient does none of the effort to complete the activity. Or, the assistance of 2 or more helpers is required for the patient to complete the activity. If activity was not attempted, code reason: 7-Patient Refused. 9-Not Applicable-not attempted and the patient did not perform the activity before the current illness, exacerbation or injury. 10-Not Attempted due to Environmental Limitations-(lack of equipment, weather restraints, etc.). 88-Not Attempted due to Medical Conditions or Safety Concerns. Eating (QC): 5 Oral Hygiene (QC): 6 (Sitting at sink) Shower/Bathe Self (QC): 6 Upper Body Dressing (QC): 5 Lower Body Dressing (QC): 4 On/Off Footwear: 5 Pt to have w/c in home environment for safe mobility. Discussed w/c mobility in home and will work on this during next treatment session. OT Short Term Goals Short Term Goals Time Frame: Oct 19, 2022 Toileting hygiene: 4 Shower/bathe self: 4 Upper body dressin Lower body dressin Putting on/taking off footwear: 4 OT Manager Administrative Services Goals Manager Administrative Services Goals Time Frame: Nov 04, 2022 Acute change in mental status: 0 Inattention: 0 Disorganized thinkin Altered level of consciousness: 0 Eating (QC): 6 Oral Hygiene (QC): 6 Toileting Hygiene (QC): 6 Shower/Bathe Self (QC): 6 Upper Body Dressing (QC): 6 Lower Body Dressing (QC): 6 On/Off Footwear (QC): 6 Additional Goals: 1-Demonstrate ADL Tasks, 2-Verbalize Understanding, 3-ImproveStrength/[place] 1=Demonstrate adherence to instructed precautions during ADL tasks. 2=Patient will verbalize/demonstrate understanding of assistive devices/modifications for ADL. 3=Patient will improve strength/tolerance for activity to enable patient to perform ADL's. OT Education/Plan Problem List/Assessment Assessment: Decreased UE Strength, Impaired Coordination, Impaired Funct Balance, Impaired Self-Care Skills Discharge Recommendations Plan/Recommendations: Continue POC Treatment Plan/Plan of Care Patient would benefit from OT for education, treatment and training to promote independence in ADL's, mobility, safety and/or upper extremity function for ADL's. Plan of Care: ADL Retraining, Functional Mobility, Group Exercise/Act as Ind, UE Funct Exercise/Act, UE Neuromus Re-Ed/Coord, Visual/Perceptual Retrain Treatment Duration: Nov 04, 2022 Frequency: At least 5 of 7 days/Wk (IRF) Estimated Hrs Per Day: 1.5 hours per day Rehab Potential: Good Time Start Time: 07:00 Stop Time: 08:30 DATE: Oct 20, 2022 Total Time Billed (hr/min): 90 Billed Treatment Time 1 visit-ADL 6 (90 min) ADINA ENG Oct 20, 2022 07:23
[2022-10-20] MEDS: lisINopril 5 MG (PRINIVIL) TABLET PO SCH (08:05)
[2022-10-20] MEDS: MECLIZINE 25 MG (ANTIVERT) TAB PO SCH ×3 (08:05→21:16)
[2022-10-20] MEDS: EMPAGLIFLOZIN 10 MG TABLET (JARDIANCE) PO SCH (08:05)
[2022-10-20] MEDS: APIXABAN 5 MG (ELIQUIS) TABLET PO SCH ×2 (08:05→21:16)
[2022-10-20] MEDS: SENNA W/DOCUSATE (SENOKOT S) TABLET PO SCH ×2 (08:05→21:17)
[2022-10-20] MEDS: DIGOXIN 0.125 MG (LANOXIN) TAB PO SCH (08:05)
[2022-10-20] MEDS: DOCUSATE SODIUM 100 MG (COLACE) CAP PO SCH ×2 (08:05→21:16)
[2022-10-20] MEDS: PANTOPRAZOLE 40 MG (PROTONIX) TAB PO SCH (08:05)
[2022-10-20] MEDS: FUROSEMIDE 20 MG (LASIX) TAB PO SCH (08:05)
[2022-10-20] MEDS: polyethylene glycoL POWDER 17 GM (MIRALAX) PACK PO SCH ×2 (08:09→21:17)
--- NOTE | 2022-10-20 09:40 | Progress Note - Cardiology ---
Cardiology SOAP Progress Note Subjective: Sitting up in recliner at the bedside States she feels well No c/o CP, SOB, palpitations, syncope or near [id number] Objective: I&O/Vital Signs 10/20/22 21:15 Pulse Ox 97 O2 Delivery Room Air 10/21/22 00:00 Intake Total 820 ml Balance 820 ml Constitutional: AAO x 3, well-developed, well-nourished Respiratory: No accessory muscle use, No respiratory distress; chest expansion is symmetric, chest is bilaterally symmetric, lungs clear to auscultation Cardiovascular: regular rate-rhythm; No JVD; S1 and S2, systolic murmur Gastrointestional: No tender; soft, round, audible bowel sounds Extremities: no lower extremity edema bilateral Neurologic/Psychiatric: other (LUE and LLE weakness) Skin: No rash on exposed areas, No ulcerations on exposed areas Results/Procedures: Labs Laboratory Tests 10/20/22 11:02: Glucometer 140H 10/20/22 16:06: Glucometer 194H 10/20/22 20:13: Glucometer 176H 10/21/22 05:49: Glucometer 142H A/P: Assessment: H/o severe aortic stenosis - S/P TAVR with an Vargas 23 mm SHANIQUE S3 ultra on 09-22-22 in [place], [place] by Dr. Chery Cardiac cath on 09-19-[address] Chery at [facility] showed no epicardial dz NICM - Echocardioram of 09-17-[address] Chery showed LVEF 10% with severe global hypokinesis with trace pericardial effusion - Echocardiogram of 09-22-[address] Chery at [facility] showed LVEF 20-25% - Echocardiogram of 09-23-[address] Chery at [facility] showed LVEF 10-15% with a normally function aortic bioprosthesis, peak velocity 1.6 m/s, mean gradient 5 mmHg and calculated valve area 1.6 cm2 - per pt report and report from [facility] her LVEF is 10-20% H/O acute resp failure on 10-01-22 - Pneumonia, CHF, hypoxia at [facility] after TAVR discharge (10-01-22) - transferred to [facility] in [place], [place] - upon arrival to [facility] it was noted she has left sided facial droop, upper and LE extremity weakness CVA - CT of head on 10-01-22 at [facility] showed acute to subacute infarcts in the right frontal and left parietal region - Dr. Callejas (neurologist at [facility]) note of 10-01-22 states cardioembolic stroke d/t multiple hypodensisties seen on CT (see above) - CTA of the neck on 10-01-22 at [facility] sowed no stenosis of the cervical carotid or vertebral arteries - Eliquis started at [facility] CKD 3 - follows with Dr. Lee of nephrology services Reported h/o HTN, however has been hypotensive - improved following reduction in medications HLD DM 2 Plan: * Tolerating increased dose carvediolol * Cr has remained stable - continue low dose CORIE and monitor BP and lab closely * Continue Eliquis * Continue dig * Titrate Heart failure meds as allowed by bp and renal function * Monitor labs * Repeat echo MAURICIO MARTIN Oct 20, 2022 09:40
--- NOTE | 2022-10-20 11:57 | Physical Therapy Daily Note ---
PT Daily Note-Current Subjective Pt. smiles, is agreeable to Rx, feels she has made slow steady progress. Looking forward to [place] Pain Location: No Pain Reported Section J - Health Conditions 1. Rarely or not at all 2. Occasionally 3. Frequently 4. Almost constantly 8. Unable to answer Pain Effect on Sleep: 1 Pain Interference with Therapy: 1 Pain Interference w/Day-to-Day: 1 Mental Status Patient Orientation: Normal For Age Transfers SCALE: Activities may be completed with or without assistive devices. 5-Kstdvprscp-zzauvey completes the activity by him/herself with no assistance from a helper. 5-Set-up or Clean-up Assistance-helper sets up or cleans up; patient completes activity. [place] assists only prior to or following the activity. 4-Supervision or Touching Assistance-helper provides verbal cues and/or touching/steadying and/or contact guard assistance as patient completes activity. Assistance may be provided throughout the activity or intermittently. 3-Partial/Moderate Assistance-helper does LESS THAN HALF the effort. [place] lifts, holds or supports trunk or limbs, but provides less than half the effort. 2-Substantial/Maximal Assistance-helper does MORE THAN HALF the effort. [place] lifts or holds trunk or limbs and provides more than half the effort. 3-Jxuiklerz-gfpdvg does ALL the effort. Patient does none of the effort to complete the activity. Or, the assistance of 2 or more helpers is required for the patient to complete the activity. If activity was not attempted, code reason: 7-Patient Refused. 9-Not Applicable-not attempted and the patient did not perform the activity before the current illness, exacerbation or injury. 10-Not Attempted due to Environmental Limitations-(lack of equipment, weather restraints, etc.). 88-Not Attempted due to Medical Conditions or Safety Concerns. Roll Left & Right (QC): 6 Sit to Lying (QC): 6 Lying to Sitting/Side of Bed(Q: 6 Sit to Stand (QC): 6 Chair/Lkr-rf-Ncrob Xfer(QC): 6 Toilet Transfer (QC): 6 challenged pt with sup to sit and sit to sup from left and right as pt is not sure which direction or side of the bed she will occupy at home Weight Bearing Full Weight Bearing Full Weight Bearing Gait Training Does the Patient Walk?: Yes Walk 10 feet (QC): 4 Walk 50 ft with 2 Turns(QC): 4 Walk 150 ft (QC): 4 Gait Persons Needed: 1 Gait Assistive Device: FWW needs CGA and instruction for motor planning, gait pattern, MIGUEL width, safety and visual awareness. Pt has improved since last seen by this LABORATORY INSPECTOR. continues dependent for safe gait. ambulated 100ft x 2, 150 ft x 1 CGA and some assist to advance FWW jennifer during turns Exercises Supine Ex: Bridging, Ankle pumps, Quad Set, Rolling, Glut sets, Heel Slides, Short Arc Quads, Scooting, Straight leg raise, Hip abd/add Supine Reps: 15 Seated Therapy Exercises: Ankle pumps, Sit to stand, Long arc quads, Hip flexion Seated Reps: 12 Nustep leg presses x 10 NuStep Minutes: 8 NuStep Workload: 1 Neuromuscular pt. stood with no hands on FWW for handwashing and drying without resting body on sink etc. no LOB, some teetering Treatments gait, TRFs, balance, therex, Assessment Current Status: Good Progress PT Final Inspection Supervisor Goals Final Inspection Supervisor Goals PT [facility] Goals Time Frame: Oct 25, 2022 Roll Left & Right (QC): 4 (SBA) Sit to Lying (QC): 4 (SBA) Lying-Sitting on Side/Bed(QC): 4 (SBA) Sit to Stand (QC): 4 (CGA) Chair/Mdd-jr-Zfjmg Xfer(QC): 4 (CGA) Toilet Transfer (QC): 4 (CGA) Car Transfer (QC): 4 (CGA) Does the Patient Walk: Yes Walk 10 feet (QC): 4 (CGA) Walk 50ft with 2 Turns (QC): 4 (CGA) Walk 150 ft (QC): 4 (CGA) Walking 10ft on Uneven Surface: 4 (CGA) 1 Step (curb) (QC): 4 (CGA) 4 Steps (QC): 4 (CGA) 12 Steps (QC): 88 Picking up an Object (QC): 4 (SBA using telephone services sales representative) Wheel 50 feet with 2 turns (QC: 5 Wheel 150 feet: 5 PT Plan Treatment/Plan Treatment Plan: Continue Plan of Care Treatment Plan: Bed Mobility, Education, Functional Activity [place], Functional Strength, Group Therapy, Gait, Safety, Therapeutic Exercise, Transfers Treatment Duration: Oct 25, 2022 Frequency: At least 5 of 7 days/Wk (IRF) Estimated Hrs Per Day: 1.5 hours per day Patient and/or Family Agrees t: Yes Safety Risks/Education Patient Education: Gait Training, Transfer Techniques, Correct Positioning, Disease Process, Safety Issues Teaching Recipient: Patient Teaching Methods: Demonstration, Discussion Response to Teaching: Verbalize Understanding, Return Demonstration, Reinforcement Needed Time Time In: 1100 Time Out: 1200 DATE: Oct 20, 2022 Total Billed Treatment Time: 60 Total Billed Treatment 1,GT25,FA20,EX15m MIKE MORLEY LABORATORY INSPECTOR Oct 20, 2022 11:57
--- NOTE | 2022-10-20 13:52 | Physical Therapy Daily Note ---
PT Daily Note-Current Subjective Pt. agrees to Rx, Willing to attempt stairs but has some apprehension Pain Location: No Pain Reported Section J - Health Conditions 1. Rarely or not at all 2. Occasionally 3. Frequently 4. Almost constantly 8. Unable to answer Pain Effect on Sleep: 1 Pain Interference with Therapy: 1 Pain Interference w/Day-to-Day: 1 Mental Status Patient Orientation: Normal For Age Transfers SCALE: Activities may be completed with or without assistive devices. 0-Rcrxuiiobs-wpbbihx completes the activity by him/herself with no assistance from a helper. 5-Set-up or Clean-up Assistance-helper sets up or cleans up; patient completes activity. Timnath assists only prior to or following the activity. 4-Supervision or Touching Assistance-helper provides verbal cues and/or touching/steadying and/or contact guard assistance as patient completes activity. Assistance may be provided throughout the activity or intermittently. 3-Partial/Moderate Assistance-helper does LESS THAN HALF the effort. Timnath lifts, holds or supports trunk or limbs, but provides less than half the effort. 2-Substantial/Maximal Assistance-helper does MORE THAN HALF the effort. Timnath lifts or holds trunk or limbs and provides more than half the effort. 9-Foonpikct-lkyywv does ALL the effort. Patient does none of the effort to complete the activity. Or, the assistance of 2 or more helpers is required for the patient to complete the activity. If activity was not attempted, code reason: 7-Patient Refused. 9-Not Applicable-not attempted and the patient did not perform the activity before the current illness, exacerbation or injury. 10-Not Attempted due to Environmental Limitations-(lack of equipment, weather restraints, etc.). 88-Not Attempted due to Medical Conditions or Safety Concerns. sit to stnd and stand to sit emphasis on safe turns inside device and good use of hands on arms of chair for safety Weight Bearing Full Weight Bearing Full Weight Bearing Gait Training Does the Patient Walk?: Yes Gait Assistive Device: FWW 75ft x 4, 55ft x 2 FWW with much emphasis on turning in good position in FWW as well as 360 deg turns left and right with good MIGUEL and safe technique Stair Training Stair Training: Handrails/: 2 handrails #of Steps: 3 Stairs: Pattern: Step to min assist, some hand over hand for direction to advance hand on rail, step by step instruction in sequence ascending and descending. Pt. surprised and proud she can do this but states she does not have steps at home Exercises Seated Therapy Exercises: Ankle pumps, Sit to stand, Long arc quads, Hip flexion, Hip abd/add Seated Reps: 12 Treatments TRFs, gait, safe effective turning wit AD, steps Assessment Current Status: Good Progress noted progress in all phases of function PT [employer] Goals [employer]er Goals PT Care Home Goals Time Frame: Oct 25, 2022 Roll Left & Right (QC): 4 (SBA) Sit to Lying (QC): 4 (SBA) Lying-Sitting on Side/Bed(QC): 4 (SBA) Sit to Stand (QC): 4 (CGA) Chair/Nxy-xv-Uugki Xfer(QC): 4 (CGA) Toilet Transfer (QC): 4 (CGA) Car Transfer (QC): 4 (CGA) Does the Patient Walk: Yes Walk 10 feet (QC): 4 (CGA) Walk 50ft with 2 Turns (QC): 4 (CGA) Walk 150 ft (QC): 4 (CGA) Walking 10ft on Uneven Surface: 4 (CGA) 1 Step (curb) (QC): 4 (CGA) 4 Steps (QC): 4 (CGA) 12 Steps (QC): 88 Picking up an Object (QC): 4 (SBA using insole tape stitcher uco) Wheel 50 feet with 2 turns (QC: 5 Wheel 150 feet: 5 PT Plan Treatment/Plan Treatment Plan: Continue Plan of Care Treatment Plan: Bed Mobility, Education, Functional Activity Guera, Functional Strength, Group Therapy, Gait, Safety, Therapeutic Exercise, Transfers Treatment Duration: Oct 25, 2022 Frequency: At least 5 of 7 days/Wk (IRF) Estimated Hrs Per Day: 1.5 hours per day Patient and/or Family Agrees t: Yes Safety Risks/Education Patient Education: Gait Training, Transfer Techniques, Steps, Correct Positioning, Disease Process, Safety Issues Teaching Recipient: Patient Teaching Methods: Demonstration, Discussion Response to Teaching: Verbalize Understanding, Return Demonstration, Reinforcement Needed Time Time In: 1315 Time Out: 1345 DATE: Oct 20, 2022 Total Billed Treatment Time: 30 Total Billed Treatment 1,FA20m,GT10m MIKE MORLEY ENGROSSER Oct 20, 2022 13:52
[2022-10-20] MEDS: ACETAMINOPHEN 325 MG TABLET PO PRN (16:12)
[2022-10-20 19:16] VITALS: BP 99/52
--- NOTE | 2022-10-20 19:57 | Progress Note - Cardiology ---
Cardiology SOAP Progress Note Subjective: Shortness of breath and gen weakness are slowly improving No n/v/d No cp or palp or syncope Objective: I&O/Vital Signs 10/20/22 10/20/22 08:10 19:16 Temp 36.2 Pulse 94 Resp 18 B/P (MAP) 99/52 (68) Pulse Ox 97 O2 Delivery Room Air Room Air 10/20/22 00:00 Intake Total 1297 ml Balance 1297 ml Constitutional: AAO x 3, well-developed, well-nourished Respiratory: No accessory muscle use, No respiratory distress; chest expansion is symmetric, chest is bilaterally symmetric, lungs clear to auscultation Cardiovascular: regular rate-rhythm; No JVD; S1 and S2, systolic murmur Gastrointestional: No tender; soft, round, audible bowel sounds Extremities: no lower extremity edema bilateral Neurologic/Psychiatric: other (LUE and LLE weakness) Skin: No rash on exposed areas, No ulcerations on exposed areas Results/Procedures: Labs Laboratory Tests 10/19/22 21:07: Glucometer 146H 10/20/22 05:17: Sodium Level 137, Potassium Level 4.2, Chloride Level 102, Carbon Dioxide Level 22, Anion Gap 13, Blood Urea Nitrogen 41H, Creatinine 1.11, Estimat Glomerular Filtration Rate 51, BUN/Creatinine Ratio 37, Glucose Level 140H, Calcium Level 9.3, Digoxin Level 0.76L 10/20/22 11:02: Glucometer 140H 10/20/22 16:06: Glucometer 194H Laboratory Tests 10/20/22 05:17 A/P: Assessment: H/o severe aortic stenosis - S/P TAVR with an Vargas 23 mm SHANIQUE S3 ultra on 09-22-22 in [place], [place] by Dr. Chery Cardiac cath on 09-19-[address] Chery at [facility] showed no epicardial dz NICM - Echocardioram of 09-17-[address] Chery showed LVEF 10% with severe global hypokinesis with trace pericardial effusion - Echocardiogram of 09-22-[address] Chery at [facility] showed LVEF 20-25% - Echocardiogram of 09-23-[address] Chery at [facility] showed LVEF 10-15% with a normally function aortic bioprosthesis, peak velocity 1.6 m/s, mean gradient 5 mmHg and calculated valve area 1.6 cm2 - per pt report and report from [facility] her LVEF is 10-20% - Echo on 10/20/22: LVEF 20-25%, basal and mid septal hypokinesis, s/p TAVR, mod MR, mod MAC, mod left atrial enlargement H/O acute resp failure on 10-01-22 - Pneumonia, CHF, hypoxia at [facility] after TAVR discharge (10-01-22) - transferred to [facility] of [facility] in [place], [place] - upon arrival to [facility] it was noted she has left sided facial droop, upper and LE extremi ty weakness CVA - CT of head on 10-01-22 at [facility] showed acute to subacute infarcts in the right frontal and left parietal region - Dr. 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 Lee of nephrology services Reported h/o HTN, however has been hypotensive - improved following reduction in medications HLD DM 2 Plan: * Continue effort at optimizing therapy for dilated cardiomyopathy and HFrEF * Cr has remained stable - continue low dose CORIE and monitor BP and lab closely * Continue Eliquis * Continue dig (dig level .76 on 10/20/22) * Titrate Heart failure meds as allowed by bp and renal function * Monitor labs * Would need Life Vest prior to discharge. Discussed with Kelvin Eddy. Life Vest ordered KRISTIN MUNGUIA MD FACP FAC CCDS Oct 20, 2022 19:57
[2022-10-20] MEDS: traZODone 50 MG (DESYREL) TAB PO SCH (21:15)
[2022-10-20] MEDS: PRAMIPEXOLE 0.5 MG TAB (MIRAPEX) PO SCH (21:15)
[2022-10-20] MEDS: PRAVASTATIN 20 MG TABLET PO SCH (21:15)
[2022-10-20] MEDS: DULoxetine 30 MG (CYMBALTA) CAP PO SCH (21:16)
[2022-10-20] MEDS: ALLEGRA 180 MG TABLET PO SCH (21:16)
[2022-10-21] MEDS: inSUlin ASPART (NovoLOG) 1 UNIT/0.01 ML (CHARGE PER UNIT) SC SCH ×4 (05:57→21:04)
--- NOTE | 2022-10-21 06:25 | PM&R Progress Note ---
Subjective HPI/CC On Admission Date Seen by Provider: Oct 21, 2022 Time Seen by Provider: 12:00 Subjective/Events-last exam 10/21/2022: No major issues No pain reported Sent Rxes in already to assure insurance covers it 10/20/2022: No major issues Doing better every day BM+ No falls 10/19/2022: Patient doing well No concerns Supportive care will continue Discharge plan for 1 week 10/18/2022: Improved overall No pain reported No falls Walking well 10/17/2022: Doing well No pain reported Walking well No falls 10/16/2022: No major issues No pain reported Daughter at bedside 10/15/2022: Improved status No falls Improved function BM regimen working well 10/14/2022: Doing better Moving better Balance is the focus 10/13/2022: Doing well No pain reported BM regimen maintained No falls Balance focus via therapy 10/12/2022: Much improved Moving around well Balance is definitely affected Labs reviewed Cardiology consult appreciated 10/11/2022: Much improved status BM+ No falls No pain reported Reviewed meds and labs Creatinine noted Cardiology consult Review of Systems General: Fatigue, Malaise Neurological: Weakness, Incoordination Objective Exam Vital Signs Vital Signs Date Time Temp Pulse Resp B/P (MAP) Pulse Ox O2 Delivery O2 Flow Rate FiO2 10/22/22 01:00 100 10/21/22 21:00 97 Room Air 10/21/22 20:15 36.6 18 114/57 (76) Capillary Refill : General Appearance: No Apparent Distress, WD/WN, Chronically ill HEENT: PERRL/EOMI, Normal ENT Inspection, Pharynx Normal Neck: Full Range of Motion, Normal Inspection, Non Tender, Supple, Carotid Bruit Respiratory: Chest Non Tender, Lungs Clear, Normal Breath Sounds, No Accessory Muscle Use, No Respiratory Distress, Decreased Breath Sounds Cardiovascular: Regular Rate, Rhythm, No Edema, No Gallop, No JVD, No Murmur, Normal Peripheral Pulses Gastrointestinal: Normal Bowel Sounds, No Organomegaly, No Pulsatile Mass, Non Tender, Soft Back: Normal Inspection, No CVA Tenderness, No Vertebral Tenderness Extremity: Normal Capillary Refill, Normal Inspection, Normal Range of Motion, Non Tender, No Calf Tenderness, No Pedal Edema Neurologic/Psychiatric: Alert, Oriented x3, nutrition services associate II-XII Norm as Tested, Abnormal Gait, Depressed Affect, Motor Weakness (left sided weakness) Skin: Normal Color, Warm/Dry Lymphatic: No Adenopathy Results/Procedures Lab Patient resulted labs reviewed. FIM Transfers Therapy Code Descriptions/Definitions Functional [place] Measure: 0=Not Assessed/NA 4=Minimal Assistance 1=Total Assistance 5=Supervision or Setup 2=Maximal Assistance 6=Modified [place] 3=Moderate Assistance 7=Complete IndependenceSCALE: Activities may be completed with or without assistive devices. 8-Oywfdiqlmg-zgyfuva completes the activity by him/herself with no assistance from a helper. 5-Set-up or Clean-up Assistance-helper sets up or cleans up; patient completes activity. Reading assists only prior to or following the activity. 4-Supervision or Touching Assistance-helper provides verbal cues and/or touching/steadying and/or contact guard assistance as patient completes activity. Assistance may be provided throughout the activity or intermittently. 3-Partial/Moderate Assistance-helper does LESS THAN HALF the effort. Reading lifts, holds or supports trunk or limbs, but provides less than half the effort. 2-Substantial/Maximal Assistance-helper does MORE THAN HALF the effort. Reading lifts or holds trunk or limbs and provides more than half the effort. 7-Hnrrqsadf-lefzqc does ALL the effort. Patient does none of the effort to complete the activity. Or, the assistance of 2 or more helpers is required for the patient to complete the activity. If activity was not attempted, code reason: 7-Patient Refused. 9-Not Applicable-not attempted and the patient did not perform the activity before the current illness, exacerbation or injury. 10-Not Attempted due to Environmental Limitations-(lack of equipment, weather restraints, etc.). 88-Not Attempted due to Medical Conditions or Safety Concerns. Roll Left to Right (QC): 6 Sit to Lying (QC): 6 Sit to Stand (QC): 6 Chair/Kru-ac-Mzmmo Xfer(QC): 6 Car Transfer (QC): 3 Gait Training Does the Patient Walk?: Yes Distance: 125' x2 Walk 10 feet (QC): 4 Walk 50 ft with 2 Turns(QC): 4 Walk 150 ft (QC): 4 Walking 10ft/uneven surface-QC: 88 Gait Persons Needed: 1 Gait Assistive Device: FWW Wheelchair Training Does the Pt Use a Wheelchair?: Yes Distance: 150' Wheel 50 ft with 2 turns (QC): 5 Wheel 150 ft (QC): 3 Type of Wheelchair: Manual Stair Training Stair Training: Handrails/: 2 handrails #of Steps: 3 1 Step (curb) (QC): 88 4 Steps (QC): 88 12 Steps (QC): 88 Stairs: Pattern: Step to Balance Picking up an Object (QC): 3 (min assist using a asphalt paving supervisor) ADL-Treatment Eating (QC): 5 Oral Hygiene (QC): 6 (Sitting at sink) Shower/Bathe Self (QC): 6 Upper Body Dressing (QC): 5 Lower Body Dressing (QC): 4 On/Off Footwear (QC): 5 Toileting Hygiene (QC): 4 Toilet Transfer (QC): 4 Assessment/Plan Assessment and Plan Assess & Plan/Chief Complaint Assessment: 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 Recent TAVR 09/22/22 Pulmonary edema CKD with PENG Fall risk DM Depression GERD HTN Anemia of chronic illness Plan: OAC PT OT Cardiology consult Monitor kidney function 10/11/2022: Monitor creatinine closely Cardiology consult 10/12/2022: Monitor closely 10/13/2022: Work on balance 10/14/2022: Monitor closely 10/15/2022: Monitor closely 10/16/2022: Check labs in am 10/17/2022: Monitor closely 10/18/2022: Supportive care Improved since admit 10/19/2022: Supportive care Monitor dizziness 10/20/2022: Fall risk prevention 10/21/2022: DC tomorrow (1) CVA (cerebral vascular accident) JARRED COBOS DO Oct 21, 2022 06:25
[2022-10-21 08:00] VITALS: BP 99/61
[2022-10-21 08:10] VITALS: BP 99/61
--- NOTE | 2022-10-21 09:02 | Physical Therapy Daily Note ---
PT Daily Note-Current Subjective Pt. and daughter present and ready for family training. Pt. requests help to navin clothes and go to bathrm for handwashing etc. Dtr describes home situation and that pt. will have FT care of either herself or her sister. HC services as well Pain Location: No Pain Reported Section J - Health Conditions 1. Rarely or not at all 2. Occasionally 3. Frequently 4. Almost constantly 8. Unable to answer Pain Effect on Sleep: 1 Pain Interference with Therapy: 1 Pain Interference w/Day-to-Day: 1 Mental Status Patient Orientation: Normal For Age Transfers SCALE: Activities may be completed with or without assistive devices. 7-Cuaaubtsnh-zoqsqwx completes the activity by him/herself with no assistance from a helper. 5-Set-up or Clean-up Assistance-helper sets up or cleans up; patient completes activity. Roxana assists only prior to or following the activity. 4-Supervision or Touching Assistance-helper provides verbal cues and/or touching/steadying and/or contact guard assistance as patient completes activity. Assistance may be provided throughout the activity or intermittently. 3-Partial/Moderate Assistance-helper does LESS THAN HALF the effort. Roxana lifts, holds or supports trunk or limbs, but provides less than half the effort. 2-Substantial/Maximal Assistance-helper does MORE THAN HALF the effort. Roxana lifts or holds trunk or limbs and provides more than half the effort. 7-Yogfdiztd-mueuxc does ALL the effort. Patient does none of the effort to complete the activity. Or, the assistance of 2 or more helpers is required for the patient to complete the activity. If activity was not attempted, code reason: 7-Patient Refused. 9-Not Applicable-not attempted and the patient did not perform the activity before the current illness, exacerbation or injury. 10-Not Attempted due to Environmental Limitations-(lack of equipment, weather restraints, etc.). 88-Not Attempted due to Medical Conditions or Safety Concerns. Roll Left & Right (QC): 6 Sit to Lying (QC): 6 Lying to Sitting/Side of Bed(Q: 6 Sit to Stand (QC): 6 Chair/Mzz-jq-Wkdii Xfer(QC): 4 Toilet Transfer (QC): 6 sit to stands from toilet and w/c and recliner all included in training wit daughter, positioning, wt shift and use of hands on arms of chair and walker etc. Dtr demonstrates and confirms her understanding of this. pt. demonstrated these several repetitions. Weight Bearing Full Weight Bearing Full Weight Bearing Gait Training Does the Patient Walk?: Yes Walk 10 feet (QC): 4 Walk 50 ft with 2 Turns(QC): 4 Gait Persons Needed: 1 Gait Assistive Device: FWW dtr was instructed in use of gait belt and demonstrated this, gait and aspects of sequence and balance were covered as well as MIGUEL, turns, gait pattern, how to protect pt. with use of gait belt and how to correct her balance if needed. pt. was followed with w/c Wheelchair Training Does the Pt Use a Wheelchair?: Yes Wheel 50 ft with 2 turns (QC): 5 Type of Wheelchair: Manual much instruction to dtr and patient regarding braking, leg rests swing in out as well as turns, backing and approaching toilet and recliner etc Pt. needs some cuing Treatments PT OT co Rx for family education coordinating education and training regarding gait, TRFs, w/c mob, toileting etc. Dtr available during this time frame Assessment Current Status: Good Progress PT Alf Goals Alf Goals PT Alf Goals Time Frame: Oct 25, 2022 Roll Left & Right (QC): 4 (SBA) Sit to Lying (QC): 4 (SBA) Lying-Sitting on Side/Bed(QC): 4 (SBA) Sit to Stand (QC): 4 (CGA) Chair/Tok-uw-Gwibk Xfer(QC): 4 (CGA) Toilet Transfer (QC): 4 (CGA) Car Transfer (QC): 4 (CGA) Does the Patient Walk: Yes Walk 10 feet (QC): 4 (CGA) Walk 50ft with 2 Turns (QC): 4 (CGA) Walk 150 ft (QC): 4 (CGA) Walking 10ft on Uneven Surface: 4 (CGA) 1 Step (curb) (QC): 4 (CGA) 4 Steps (QC): 4 (CGA) 12 Steps (QC): 88 Picking up an Object (QC): 4 (SBA using smoke control supervisor) Wheel 50 feet with 2 turns (QC: 5 Wheel 150 feet: 5 PT Plan Treatment/Plan Treatment Plan: Continue Plan of Care Treatment Plan: Bed Mobility, Education, Functional Activity Guera, Functional Strength, Group Therapy, Gait, Safety, Therapeutic Exercise, Transfers Treatment Duration: Oct 25, 2022 Frequency: At least 5 of 7 days/Wk (IRF) Estimated Hrs Per Day: 1.5 hours per day Patient and/or Family Agrees t: Yes Safety Risks/Education Patient Education: Gait Training, Transfer Techniques, Correct Positioning, W/C Management, Instructions to Caregiver, Safety Issues Teaching Recipient: Patient, Family Teaching Methods: Demonstration Response to Teaching: Verbalize Understanding, Return Demonstration, Reinforcement Needed Time Time In: 800 Time Out: 900 DATE: Oct 21, 2022 Total Billed Treatment Time: 60 Total Billed Treatment 1, FA30m,WC15m,GT15m ( 30 m co Rx w OT) MIKE MORLEY PTA Oct 21, 2022 09:02
[2022-10-21] MEDS: polyethylene glycoL POWDER 17 GM (MIRALAX) PACK PO SCH ×2 (09:31→21:05)
[2022-10-21] MEDS: PANTOPRAZOLE 40 MG (PROTONIX) TAB PO SCH (09:38)
[2022-10-21] MEDS: EMPAGLIFLOZIN 10 MG TABLET (JARDIANCE) PO SCH (09:38)
[2022-10-21] MEDS: DIGOXIN 0.125 MG (LANOXIN) TAB PO SCH (09:38)
[2022-10-21] MEDS: MECLIZINE 25 MG (ANTIVERT) TAB PO SCH ×3 (09:38→21:05)
[2022-10-21] MEDS: FUROSEMIDE 20 MG (LASIX) TAB PO SCH (09:38)
[2022-10-21] MEDS: DOCUSATE SODIUM 100 MG (COLACE) CAP PO SCH ×2 (09:38→21:05)
[2022-10-21] MEDS: lisINopril 5 MG (PRINIVIL) TABLET PO SCH ×2 (09:38→10:54)
[2022-10-21] MEDS: APIXABAN 5 MG (ELIQUIS) TABLET PO SCH ×2 (09:38→21:05)
[2022-10-21] MEDS: SENNA W/DOCUSATE (SENOKOT S) TABLET PO SCH ×2 (09:39→21:06)
--- NOTE | 2022-10-21 10:26 | Occupational Ther Daily Note ---
OT Current Status-Daily Note Subjective Pt alert, working with PT. Co-treat with PT ([id number]) for family training. PT focusing on transfers, w/c mobility and ambulation with FWW educating daughter while OT focusing on ADLs, functional transfers and functional w/c mobility educating daughter. Mental Status/Objective Patient Orientation: Person, Place, Time, Situation ADL-Treatment Pt does demonstrate ability to gather supplies at w/c level though takes increased time to get close enough to reach items safely. Therapy Code Descriptions/Definitions Functional [place] Measure: 0=Not Assessed/NA 4=Minimal Assistance 1=Total Assistance 5=Supervision or Setup 2=Maximal Assistance 6=Modified [place] 3=Moderate Assistance 7=Complete IndependenceSCALE: Activities may be completed with or without assistive devices. 1-Mrztvctbpp-obtcokv completes the activity by him/herself with no assistance from a helper. 5-Set-up or Clean-up Assistance-helper sets up or cleans up; patient completes activity. Galva assists only prior to or following the activity. 4-Supervision or Touching Assistance-helper provides verbal cues and/or touching/steadying and/or contact guard assistance as patient completes a ctivity. Assistance may be provided throughout the activity or intermittently. 3-Partial/Moderate Assistance-helper does LESS THAN HALF the effort. Galva lifts, holds or supports trunk or limbs, but provides less than half the effort. 2-Substantial/Maximal Assistance-helper does MORE THAN HALF the effort. Galva lifts or holds trunk or limbs and provides more than half the effort. 0-Jvvviqxrz-gemthu does ALL the effort. Patient does none of the effort to complete the activity. Or, the assistance of 2 or more helpers is required for the patient to complete the activity. If activity was not attempted, code reason: 7-Patient Refused. 9-Not Applicable-not attempted and the patient did not perform the activity before the current illness, exacerbation or injury. 10-Not Attempted due to Environmental Limitations-(lack of equipment, weather restraints, etc.). 88-Not Attempted due to Medical Conditions or Safety Concerns. Toileting Hygiene (QC): 4 (SBA using grabbars when completing clothing manipulation. Sitting to complete hygiene by self.) Toilet Transfer (QC): 4 Other Treatment Pt is educated on w/c mobility to transfer from toilet, shower, chair safely. Pt understands how to set brakes and move foot pedal for safe transfers. Pt is able to propel w/c by self though does require time and verbal cues when posit ioning to transfer from surface to surface. Pt has demonstrated understanding though is overwhelmed and is having difficulty retaining education of transfers. SBA to CGA for transfer from surface from/to w/c Pt is independent with w/c brakes, foot pedal and mobility. Pt is demonstrating progress with LUE overall movement. Pt's L shldr does fatigue though is maintaining an ergonomically correct movement with L shldr. Pt has full AROM with shldr in all planes in supine. Pt demonstrates good bicep strength, 2 sets 10 reps with light resistance theraband. Pt requires multiple recovery breaks throughout session. After therapy, pt lying in bed with call light/phone in reach. All needs met in room. BIMS CAM BIMS Expression of Ideas and Wants: Without Difficulty Understanding Verbal Content: Understands IRF YIFAN BIMS: IRF YIFAN BIMS Response (Comments) Value Repitition of Three Words Three 3 Recalls Socks Yes, No Cue Required 2 Recalls Blue Yes, No Cue Required 2 Recalls Bed Yes, No Cue Required 2 Year Correct 3 Month Accurate Within 5 Days 2 Day Correct 1 Total 15 Patient Normally Able to Recal: Current Session, Location of own room, Staff Names and faces, That he/she in a hsp CAM Mental Status Change/Baseline: 0 Inattention: 0 Disorganized thinkin Altered level of consciousness: 0 OT Short Term Goals Short Term Goals Time Frame: Oct 19, 2022 Toileting hygiene: 4 Shower/bathe self: 4 Upper body dressin Lower body dressin Putting on/taking off footwear: 4 OT Assisted Goals Assisted Goals Time Frame: Nov 04, 2022 Acute change in mental status: 0 Inattention: 0 Disorganized thinkin Altered level of consciousness: 0 Eating (QC): 6 (met) Oral Hygiene (QC): 6 (met-in sitting) Toileting Hygiene (QC): 6 (not met) Shower/Bathe Self (QC): 6 (met-sitting 100% of the time) Upper Body Dressing (QC): 6 (not met) Lower Body Dressing (QC): 6 (not met) On/Off Footwear (QC): 6 (not met) Additional Goals: 1-Demonstrate ADL Tasks, 2-Verbalize Understanding, 3- ImproveStrength/Guera 1=Demonstrate adherence to instructed precautions during ADL tasks. 2=Patient will verbalize/demonstrate understanding of assistive devices/modifications for ADL. 3=Patient will improve strength/tolerance for activity to enable patient to perform ADL's. OT Education/Plan Problem List/Assessment Assessment: Decreased Activ Tolerance, Impaired Funct Balance, Impaired Self- Care Skills, Restricted Funct UE ROM Discharge Recommendations Plan/Recommendations: Continue POC Treatment Plan/Plan of Care Patient would benefit from OT for education, treatment and training to promote independence in ADL's, mobility, safety and/or upper extremity function for ADL's. Plan of Care: ADL Retraining, Functional Mobility, Group Exercise/Act as Ind, UE Funct Exercise/Act, UE Neuromus Re-Ed/Coord, Visual/Perceptual Retrain Treatment Duration: Nov 04, 2022 Frequency: At least 5 of 7 days/Wk (IRF) Estimated Hrs Per Day: 1.5 hours per day Rehab Potential: Good Time Start Time: 08:30 Stop Time: 10:00 DATE: Oct 21, 2022 Total Time Billed (hr/min): 90 Billed Treatment Time 1 visit-ADL 1 (20 min) FA 3 (40 min) NM 2 (30 min) co-treat with PT 0830- 0900, individual [id number] ADINA ENG Oct 21, 2022 10:26
--- NOTE | 2022-10-21 11:23 | Physical Therapy Daily Note ---
PT Daily Note-Current Subjective Pt. and dtr present. agrees to Rx. Pain Location: No Pain Reported Section J - Health Conditions 1. Rarely or not at all 2. Occasionally 3. Frequently 4. Almost constantly 8. Unable to answer Pain Effect on Sleep: 1 Pain Interference with Therapy: 1 Pain Interference w/Day-to-Day: 1 Mental Status Patient Orientation: Normal For Age Transfers SCALE: Activities may be completed with or without assistive devices. 9-Rmnvvpgezq-afqohga completes the activity by him/herself with no assistance from a helper. 5-Set-up or Clean-up Assistance-helper sets up or cleans up; patient completes activity. Jasper assists only prior to or following the activity. 4-Supervision or Touching Assistance-helper provides verbal cues and/or touching/steadying and/or contact guard assistance as patient completes activity. Assistance may be provided throughout the activity or intermittently. 3-Partial/Moderate Assistance-helper does LESS THAN HALF the effort. Jasper lifts, holds or supports trunk or limbs, but provides less than half the effort. 2-Substantial/Maximal Assistance-helper does MORE THAN HALF the effort. Jasper lifts or holds trunk or limbs and provides more than half the effort. 1-Ypcuxiecb-uyyxby does ALL the effort. Patient does none of the effort to complete the activity. Or, the assistance of 2 or more helpers is required for the patient to complete the activity. If activity was not attempted, code reason: 7-Patient Refused. 9-Not Applicable-not attempted and the patient did not perform the activity before the current illness, exacerbation or injury. 10-Not Attempted due to Environmental Limitations-(lack of equipment, weather restraints, etc.). 88-Not Attempted due to Medical Conditions or Safety Concerns. bed mob , rolling and scooting up in bed indep with cues Weight Bearing Full Weight Bearing Full Weight Bearing Exercises Supine Ex: Bridging, Ankle pumps, Quad Set, Rolling, Glut sets, Lower trunk rotation, Heel Slides, Short Arc Quads, Scooting, Straight leg raise, Hip abd/add Supine Reps: 15 Treatments bed mob, sup ex LEs Assessment Current Status: Good Progress PT Block Sealer Goals Block Sealer Goals PT Detention Goals Time Frame: Oct 25, 2022 Roll Left & Right (QC): 4 (SBA) Sit to Lying (QC): 4 (SBA) Lying-Sitting on Side/Bed(QC): 4 (SBA) Sit to Stand (QC): 4 (CGA) Chair/Sxi-pa-Tzsfq Xfer(QC): 4 (CGA) Toilet Transfer (QC): 4 (CGA) Car Transfer (QC): 4 (CGA) Does the Patient Walk: Yes Walk 10 feet (QC): 4 (CGA) Walk 50ft with 2 Turns (QC): 4 (CGA) Walk 150 ft (QC): 4 (CGA) Walking 10ft on Uneven Surface: 4 (CGA) 1 Step (curb) (QC): 4 (CGA) 4 Steps (QC): 4 (CGA) 12 Steps (QC): 88 Picking up an Object (QC): 4 (SBA using bleach machine operator) Wheel 50 feet with 2 turns (QC: 5 Wheel 150 feet: 5 PT Plan Treatment/Plan Treatment Plan: Continue Plan of Care Treatment Plan: Bed Mobility, Education, Functional Activity Guera, Functional Strength, Group Therapy, Gait, Safety, Therapeutic Exercise, Transfers Treatment Duration: Oct 25, 2022 Frequency: At least 5 of 7 days/Wk (IRF) Estimated Hrs Per Day: 1.5 hours per day Patient and/or Family Agrees t: Yes Safety Risks/Education Patient Education: Transfer Techniques, Correct Positioning Time Time In: 1100 Time Out: 1130 DATE: Oct 21, 2022 Total Billed Treatment Time: 30 Total Billed Treatment 1,FA10m,EX20m MIKE MORLEY PTA Oct 21, 2022 11:22
[2022-10-21] MEDS ORDERED: ASPI-1238 PO (12:44)
[2022-10-21] MEDS ORDERED: CARV6.252 PO (12:44)
[2022-10-21] MEDS ORDERED: MECL-149 PO (12:44)
[2022-10-21] MEDS ORDERED: DIGO125T18 PO (12:44)
[2022-10-21] MEDS ORDERED: FURO20TA4 PO (12:44)
[2022-10-21] MEDS ORDERED: ONDA4TAB11 PO (12:44)
[2022-10-21] MEDS ORDERED: LISI5TAB20 PO (12:44)
[2022-10-21] MEDS ORDERED: APIX5TAB PO (12:44)
--- NOTE | 2022-10-21 12:49 | D/C HH Face to Face Order ---
D/C HH Face to Face Orders Reconcile Patient Problems Problems Reviewed?: Yes Instructions for Patient HH Patient Instructions/FollowUp: PCP 1 week Physician to follow Patient: PCP Discharge Diet for Home: No Restrictions Patient Problems: CVA Patient Data-Allergies,Ht & Wt Patient Allergies: Coded Allergies: Penicillins (Verified Allergy, Unknown, 10/10/22) atorvastatin (Verified Allergy, Unknown, 10/10/22) meperidine (Verified Allergy, Unknown, 10/10/22) morphine (Verified Allergy, Unknown, 10/10/22) tetracycline (Verified Allergy, Unknown, 10/10/22) Home Health Need/Face to Face Date of Face to Face: Oct 21, 2022 Clinical Findings: Generalized weakness and fatigue, Muscle weakness, Unsteady gait I have seen Pt reyk-pa-nzvz: Yes Discharged To: Home Diagnosis/Conditions: Debility Patient is Homebound due to: Muscle weakness, Pain w/ambulation Homebound Status Due to the above stated illness, injury or surgical procedure (medical condition or diagnosis) and associated clinical findings, the patient is homebound because of his/her inability to leave home except with aid of a supportive device and/or person AND leaving the home requires a considerable and taxing effort or is medically contraindicated. Pt req the following assistanc: [facility] Nursing Orders Home Health Services Order: Nursing Services, Clamshell Engineer-Evaluate & Treat, Physical Therapy-Evaluate & Treat Certify Stmt I certify that this patient is under my care and that I, a nurse practitioner or a physician; a civil engineering assistant working with me, had a face to face encounter that - meets the physician face to face encounter requirements with this patient as dated. JARRED COBOS DO Oct 21, 2022 12:49
--- NOTE | 2022-10-21 16:54 | Cardiology Progress Note ---
Subjective Date Seen by Provider: Oct 21, 2022 Time Seen by Provider: 16:00 Subjective/Events-last exam No acute issues overnight. received her life vest today. ready for d/c tomorrow. Objective-Cardiology Exam Last Set of Vital Signs Vital Signs 10/21/22 10/21/22 08:10 09:00 Temp 36.4 Pulse 87 Resp 18 B/P (MAP) 99/61 (74) Pulse Ox 99 O2 Delivery Room Air I&O Intake and Output 10/21/22 00:00 Intake Total 1220 ml Balance 1220 ml Intake Oral 1220 ml # Voids 5 # Bowel Movements 2 Other physical findings Gen: No acute distress;' A+O x 3, sitting comfortably in the bed Neck: soft supple, no cervical LAD Luns: CTA-bilaterally, no wheezing, rales or rhonchi CV: nl s1/s2, no m-g-r, RRR Abd: soft nt nd, no HSM, + BS Ext: wwp, no c-c-e; 2+ DP and femoral pulses skin: no lesions rashes or ecchymoses are noted. A/P-Cardiology Assessment/Plan 77F with hx of CVA, severe s/p TAVR c/b CVA and reduction in HF from > 55% to 20-25% who presents for evaluaiton. ## S/P TAVR with an Vargas 23 mm SHANIQUE S3 ultra on 09-22-22 in [place], [place] by Dr. Chery - Cardiac cath on 09-19-[address] Chery at [facility] showed no epicardial dz ## NICM - Echocardioram of 09-17-[address] Chery showed LVEF 10% with severe global hypokinesis with trace pericardial effusion - Echo on 10/20/22: LVEF 20-25%, basal and mid septal hypokinesis, s/p TAVR, mod MR, mod MAC, mod left atrial enlargement - cont coreg, lisiniopril, digoixin, jardiance - would consider addition of entresto (howerver limited by SBPs in the 90s). - start aldactone 25mg po QD - Life Vest in place H/O acute resp failure on 10-01-22 - Pneumonia, CHF, hypoxia at [facility] after TAVR discharge (10-01-22) - transferred to [facility] in [place], [place] - upon arrival to [facility] it was noted she has left sided facial droop, upper and LE extremity weakness ## CVA - cont Eliquis initated at [facility] - CT of head on 10-01-22 at [facility] showed acute to subacute infarcts in the right frontal and left parietal region - Dr. Callejas (neurologist at [facility]) note of 10-01-22 states cardioembolic stroke d/t multiple hypodensisties seen on CT (see above) - CTA of the neck on 10-01-22 at [facility] sowed no stenosis of the cervical carotid or vertebral arteries ## CKD 3, cr of 1.1 - follows with Dr. Lee of nephrology services JAMEL VALLE MD Oct 21, 2022 16:54
[2022-10-21 20:15] VITALS: BP 114/57
[2022-10-21] MEDS: ALLEGRA 180 MG TABLET PO SCH (21:04)
[2022-10-21] MEDS: DULoxetine 30 MG (CYMBALTA) CAP PO SCH (21:05)
[2022-10-21] MEDS: PRAMIPEXOLE 0.5 MG TAB (MIRAPEX) PO SCH (21:05)
[2022-10-21] MEDS: traZODone 50 MG (DESYREL) TAB PO SCH (21:05)
[2022-10-21] MEDS: PRAVASTATIN 20 MG TABLET PO SCH (21:05)
[2022-10-22] MEDS: inSUlin ASPART (NovoLOG) 1 UNIT/0.01 ML (CHARGE PER UNIT) SC SCH (06:09)
[2022-10-22 07:06] VITALS: BP 129/72
[2022-10-22] MEDS: MECLIZINE 25 MG (ANTIVERT) TAB PO SCH (08:19)
[2022-10-22] MEDS: DIGOXIN 0.125 MG (LANOXIN) TAB PO SCH (08:19)
[2022-10-22] MEDS: FUROSEMIDE 20 MG (LASIX) TAB PO SCH (08:19)
[2022-10-22] MEDS: PANTOPRAZOLE 40 MG (PROTONIX) TAB PO SCH (08:19)
[2022-10-22] MEDS: APIXABAN 5 MG (ELIQUIS) TABLET PO SCH (08:19)
[2022-10-22] MEDS: DOCUSATE SODIUM 100 MG (COLACE) CAP PO SCH (08:19)
[2022-10-22] MEDS: lisINopril 5 MG (PRINIVIL) TABLET PO SCH (08:19)
[2022-10-22] MEDS: EMPAGLIFLOZIN 10 MG TABLET (JARDIANCE) PO SCH (08:20)
[2022-10-22] MEDS: polyethylene glycoL POWDER 17 GM (MIRALAX) PACK PO SCH (08:20)
[2022-10-22] MEDS: SENNA W/DOCUSATE (SENOKOT S) TABLET PO SCH (08:22)
--- NOTE | 2022-10-22 08:52 | Discharge Summary ---
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 Pulmonary edema CKD with PENG Fall risk DM Depression GERD HTN Anemia of chronic illness Plan: OAC PT OT Cardiology consult Monitor kidney function 10/11/2022: Monitor creatinine closely Cardiology consult 10/12/2022: Monitor closely 10/13/2022: Work on balance 10/14/2022: Monitor closely 10/15/2022: Monitor closely 10/16/2022: Check labs in am 10/17/2022: Monitor closely 10/18/2022: Supportive care Improved since admit 10/19/2022: Supportive care Monitor dizziness 10/20/2022: Fall risk prevention 10/21/2022: DC tomorrow (1) CVA (cerebral vascular accident) Discharge Summary Discharge Physical Examination Allergies: Coded Allergies: Penicillins (Verified Allergy, Unknown, 10/10/22) atorvastatin (Verified Allergy, Unknown, 10/10/22) meperidine (Verified Allergy, Unknown, 10/10/22) morphine (Verified Allergy, Unknown, 10/10/22) tetracycline (Verified Allergy, Unknown, 10/10/22) Vitals & I&Os Vital Signs Date Time Temp Pulse Resp B/P (MAP) Pulse Ox O2 Delivery O2 Flow Rate FiO2 10/22/22 10:15 36.2 88 20 129/72 99 Room Air General Appearance: Alert, Oriented X3, Cooperative Respiratory: Clear to Auscultation Cardiovascular: Regular Rate Psych/Mental Status: Mental Status NL Hospital Course Was the Problem List Reviewed?: Yes Uneventful course after she arrived to ARU following a CVA with left sided weakness. She fully participated in therapies and was able to slowly regain function and ambulate and regain ADL independence. Cardiology consulted and modified meds. Overall she had no issues during stay and was able to DC home with . Labs (last 24 hrs) Laboratory Tests 10/10/22 20:20: Glucometer 204H 10/11/22 05:30: Glucometer 133H 10/11/22 05:32: White Blood Count 7.7, Red Blood Count 3.11L, Hemoglobin 9.3L, Hematocrit 29L, Mean Corpuscular Volume 94, Mean Corpuscular Hemoglobin 30, Mean Corpuscular Hemoglobin Concent 32, Red Cell Distribution Width 14.1, Platelet Count 352, Mean Platelet Volume 10.5, Immature Granulocyte % (Auto) 0, Neutrophils (%) (Auto) 54, Lymphocytes (%) (Auto) 28, Monocytes (%) (Auto) 8, Eosinophils (%) (Auto) 8, Basophils (%) (Auto) 2, Neutrophils # (Auto) 4.1, Lymphocytes # (Auto) 2.1, Monocytes # (Auto) 0.6, Eosinophils # (Auto) 0.6H, Basophils # (Auto) 0.1, Immature Granulocyte # (Auto) 0.0, Sodium Level 139, Potassium Level 4.1, Chloride Level 104, Carbon Dioxide Level 23, Anion Gap 12, Blood Urea Nitrogen 52H, Creatinine 1.35H, Estimat Glomerular Filtration Rate 40, BUN/Creatinine Ratio 39, Glucose Level 138H, Calcium Level 9.4, Corrected Calcium 9.7, Iron Level 49, Total Bilirubin 0.4, Aspartate Amino Transf (AST/SGOT) 19, Alanine Aminotransferase (ALT/SGPT) 17, Alkaline Phosphatase 61, Total Protein 6.6, Albumin 3.6, Vitamin B12 Level 823 10/11/22 10:57: Glucometer 172H 10/11/22 16:15: Glucometer 138H 10/11/22 20:05: Glucometer 225H 10/12/22 06:22: Glucometer 106 10/12/22 11:03: Glucometer 121H 10/12/22 16:30: Glucometer 221H 10/12/22 20:43: Glucometer 188H 10/13/22 06:17: Glucometer 134H 10/13/22 10:53: Glucometer 161H 10/13/22 15:35: Glucometer 162H 10/13/22 20:18: Glucometer 197H 10/14/22 05:00: Sodium Level 139, Potassium Level 3.8, Chloride Level 102, Carbon Dioxide Level 23, Anion Gap 14, Blood Urea Nitrogen 48H, Creatinine 1.25, Estimat Glomerular Filtration Rate 44, BUN/Creatinine Ratio 38, Glucose Level 124H, Calcium Level 9.4, Digoxin Level 0.36L 10/14/22 10:51: Glucometer 194H 10/14/22 15:36: Glucometer 189H 10/14/22 20:12: Glucometer 196H 10/15/22 05:15: Glucometer 114H 10/15/22 10:44: Glucometer 132H 10/15/22 16:20: Glucometer 143H 10/15/22 20:41: Glucometer 160H 10/16/22 06:06: Glucometer 109 10/16/22 10:35: Glucometer 232H 10/16/22 15:52: Glucometer 119H 10/16/22 21:16: Glucometer 190H 10/17/22 04:57: White Blood Count 6.2, Red Blood Count 3.06L, Hemoglobin 9.0L, Hematocrit 28L, Mean Corpuscular Volume 92, Mean Corpuscular Hemoglobin 29, Mean Corpuscular Hemoglobin Concent 32, Red Cell Distribution Width 13.4, Platelet Count 256, Mean Platelet Volume 10.5, Immature Granulocyte % (Auto) 0, Neutrophils (%) (Auto) 53, Lymphocytes (%) (Auto) 27, Monocytes (%) (Auto) 10, Eosinophils (%) (Auto) 8, Basophils (%) (Auto) 1, Neutrophils # (Auto) 3.3, Lymphocytes # (Auto) 1.7, Monocytes # (Auto) 0.6, Eosinophils # (Auto) 0.5H, Basophils # (Auto) 0.1, Immature Granulocyte # (Auto) 0.0, Sodium Level 139, Potassium Level 3.7, Chloride Level 103, Carbon Dioxide Level 24, Anion Gap 12, Blood Urea Nitrogen 40H, Creatinine 1.30, Estimat Glomerular Filtration Rate 42, BUN/Creatinine Ratio 31, Glucose Level 124H, Calcium Level 9.5, Corrected Calcium 9.9, Total Bilirubin 0.3, Aspartate Amino Transf (AST/SGOT) 21, Alanine Aminotransferase (ALT/SGPT) 17, Alkaline Phosphatase 63, Total Protein 6.4, Albumin 3.5 10/17/22 09:25: Digoxin Level 0.66L 10/17/22 11:21: Glucometer 148H 10/17/22 16:28: Glucometer 215H 10/17/22 20:10: Glucometer 172H 10/18/22 05:27: Sodium Level 139, Potassium Level 3.6, Chloride Level 103, Carbon Dioxide Level 23, Anion Gap 13, Blood Urea Nitrogen 49H, Creatinine 1.29, Estimat Glomerular Filtration Rate 43, BUN/Creatinine Ratio 38, Glucose Level 135H, Calcium Level 9.2 10/18/22 12:03: Glucometer 147H 10/18/22 16:22: Glucometer 169H 10/18/22 20:25: Glucometer 198H 10/19/22 05:31: Glucometer 124H 10/19/22 11:47: Glucometer 112H 10/19/22 15:34: Glucometer 230H 10/19/22 21:07: Glucometer 146H 10/20/22 05:17: Sodium Level 137, Potassium Level 4.2, Chloride Level 102, Carbon Dioxide Level 22, Anion Gap 13, Blood Urea Nitrogen 41H, Creatinine 1.11, Estimat Glomerular Filtration Rate 51, BUN/Creatinine Ratio 37, Glucose Level 140H, Calcium Level 9.3, Digoxin Level 0.76L 10/20/22 11:02: Glucometer 140H 10/20/22 16:06: Glucometer 194H 10/20/22 20:13: Glucometer 176H 10/21/22 05:49: Glucometer 142H 10/21/22 10:41: Glucometer 274H 10/21/22 16:28: Glucometer 155H 10/21/22 20:59: Glucometer 180H 10/22/22 06:01: Glucometer 129H Pending Labs Laboratory Tests 10/10/22 20:20: Glucometer 204 10/11/22 05:30: Glucometer 133 10/11/22 05:32: White Blood Count 7.7, Red Blood Count 3.11, Hemoglobin 9.3, Hematocrit 29, Mean Corpuscular Volume 94, Mean Corpuscular Hemoglobin 30, Mean Corpuscular Hemoglobin Concent 32, Red Cell Distribution Width 14.1, Platelet Count 352, Mean Platelet Volume 10.5, Immature Granulocyte % (Auto) 0, Neutrophils (%) (Auto) 54, Lymphocytes (%) (Auto) 28, Monocytes (%) (Auto) 8, Eosinophils (%) (Auto) 8, Basophils (%) (Auto) 2, Neutrophils # (Auto) 4.1, Lymphocytes # (Auto) 2.1, Monocytes # (Auto) 0.6, Eosinophils # (Auto) 0.6, Basophils # (Auto) 0.1, Immature Granulocyte # (Auto) 0.0, Sodium Level 139, Potassium Level 4.1, Chloride Level 104, Carbon Dioxide Level 23, Anion Gap 12, Blood Urea Nitrogen 52, Creatinine 1.35, Estimat Glomerular Filtration Rate 40, BUN/Creatinine Ratio 39, Glucose Level 138, Calcium Level 9.4, Corrected Calcium 9.7, Iron Level 49, Total Bilirubin 0.4, Aspartate Amino Transf (AST/SGOT) 19, Alanine Aminotransferase (ALT/SGPT) 17, Alkaline Phosphatase 61, Total Protein 6.6, Albumin 3.6, Vitamin B12 Level 823 10/11/22 10:57: Glucometer 172 10/11/22 16:15: Glucometer 138 10/11/22 20:05: Glucometer 225 10/12/22 06:22: Glucometer 106 10/12/22 11:03: Glucometer 121 10/12/22 16:30: Glucometer 221 10/12/22 20:43: Glucometer 188 10/13/22 06:17: Glucometer 134 10/13/22 10:53: Glucometer 161 10/13/22 15:35: Glucometer 162 10/13/22 20:18: Glucometer 197 10/14/22 05:00: Sodium Level 139, Potassium Level 3.8, Chloride Level 102, Carbon Dioxide Level 23, Anion Gap 14, Blood Urea Nitrogen 48, Creatinine 1.25, Estimat Glomerular Filtration Rate 44, BUN/Creatinine Ratio 38, Glucose Level 124, Calcium Level 9.4, Digoxin Level 0.36 10/14/22 10:51: Glucometer 194 10/14/22 15:36: Glucometer 189 10/14/22 20:12: Glucometer 196 10/15/22 05:15: Glucometer 114 10/15/22 10:44: Glucometer 132 10/15/22 16:20: Glucometer 143 10/15/22 20:41: Glucometer 160 10/16/22 06:06: Glucometer 109 10/16/22 10:35: Glucometer 232 10/16/22 15:52: Glucometer 119 10/16/22 21:16: Glucometer 190 10/17/22 04:57: White Blood Count 6.2, Red Blood Count 3.06, Hemoglobin 9.0, Hematocrit 28, Mean Corpuscular Volume 92, Mean Corpuscular Hemoglobin 29, Mean Corpuscular Hemoglobin Concent 32, Red Cell Distribution Width 13.4, Platelet Count 256, Mean Platelet Volume 10.5, Immature Granulocyte % (Auto) 0, Neutrophils (%) (Auto) 53, Lymphocytes (%) (Auto) 27, Monocytes (%) (Auto) 10, Eosinophils (%) (Auto) 8, Basophils (%) (Auto) 1, Neutrophils # (Auto) 3.3, Lymphocytes # (Auto) 1.7, Monocytes # (Auto) 0.6, Eosinophils # (Auto) 0.5, Basophils # (Auto) 0.1, Immature Granulocyte # (Auto) 0.0, Sodium Level 139, Potassium Level 3.7, Chloride Level 103, Carbon Dioxide Level 24, Anion Gap 12, Blood Urea Nitrogen 40, Creatinine 1.30, Estimat Glomerular Filtration Rate 42, BUN/Creatinine Ratio 31, Glucose Level 124, Calcium Level 9.5, Corrected Calcium 9.9, Total Bilirubin 0.3, Aspartate Amino Transf (AST/SGOT) 21, Alanine Aminotransferase (ALT/SGPT) 17, Alkaline Phosphatase 63, Total Protein 6.4, Albumin 3.5 10/17/22 09:25: Digoxin Level 0.66 10/17/22 11:21: Glucometer 148 10/17/22 16:28: Glucometer 215 10/17/22 20:10: Glucometer 172 10/18/22 05:27: Sodium Level 139, Potassium Level 3.6, Chloride Level 103, Carbon Dioxide Level 23, Anion Gap 13, Blood Urea Nitrogen 49, Creatinine 1.29, Estimat Glomerular Filtration Rate 43, BUN/Creatinine Ratio 38, Glucose Level 135, Calcium Level 9.2 10/18/22 12:03: Glucometer 147 10/18/22 16:22: Glucometer 169 10/18/22 20:25: Glucometer 198 10/19/22 05:31: Glucometer 124 10/19/22 11:47: Glucometer 112 10/19/22 15:34: Glucometer 230 10/19/22 21:07: Glucometer 146 10/20/22 05:17: Sodium Level 137, Potassium Level 4.2, Chloride Level 102, Carbon Dioxide Level 22, Anion Gap 13, Blood Urea Nitrogen 41, Creatinine 1.11, Estimat Glomerular Filtration Rate 51, BUN/Creatinine Ratio 37, Glucose Level 140, Calcium Level 9.3, Digoxin Level 0.76 10/20/22 11:02: Glucometer 140 10/20/22 16:06: Glucometer 194 10/20/22 20:13: Glucometer 176 10/21/22 05:49: Glucometer 142 10/21/22 10:41: Glucometer 274 10/21/22 16:28: Glucometer 155 10/21/22 20:59: Glucometer 180 10/22/22 06:01: Glucometer 129 Discharge Home Medications: Active Scripts Active Ondansetron Odt (Ondansetron) 4 Mg Tab.rapdis 4 Mg PO Q6H PRN Meclizine HCl 25 Mg Tablet 25 Mg PO TID Furosemide 20 Mg Tablet 20 Mg PO DAILY Lisinopril 5 Mg Tablet 2.5 Mg PO DAILY Carvedilol 6.25 Mg Tablet 6.25 Mg PO BID Digox (Digoxin) 125 Mcg (0.125 Mg) Tablet 0.125 Mg PO DAILY Eliquis (Apixaban) 5 Mg Tablet 5 Mg PO BID Aspirin EC (Aspirin) 81 Mg Tablet.dr 81 Mg PO DAILY Reported Metformin HCl 500 Mg Tablet 1,000 Mg PO BID TAKES 2 (500MG) TABS Sasha Allergy (Fexofenadine HCl) 180 Mg Tablet 180 Mg PO DAILY Pramipexole Dihydrochloride (Pramipexole Di-HCl) 0.5 Mg Tablet 1 Mg PO HS TAKES 2 (0.5MG) TABS Trazodone HCl 50 Mg Tablet 50 Mg PO HS Pravastatin Sodium 40 Mg Tablet 40 Mg PO HS Pantoprazole Sodium 40 Mg Tablet.dr 40 Mg PO DAILY Jardiance (Empagliflozin) 10 Mg Tablet 10 Mg PO DAILY Duloxetine HCl 30 Mg Capsule.dr 30 Mg PO HS Docusate Sodium 100 Mg Capsule 100 Mg PO BID Tylenol (Acetaminophen) 325 Mg Capsule 325-650 Mg PO Q6H PRN TAKES 1 TO 2 OF (325MG) TABS Instructions to patient/family Please see electronic discharge instructions given to patient. Diagnosis/Problems Diagnosis/Problems (1) CVA (cerebral vascular accident) JARRED COBOS DO Oct 22, 2022 08:52
[2022-10-22] MEDS ORDERED: SPIRONOLACTONE 25 MG (ALDACTONE) TAB PO SCH (09:00)
[2022-10-22 10:15] VITALS: BP 129/72
--- NOTE | 2022-10-22 13:13 | Physical Therapy Daily Note ---
PT Daily Note-Current Subjective Pt found seated in recliner upon entry. Agreed to PT. States that she is not having any pain today. Reports her daughters will be coming to get her soon and she will continue to work on exercises at home. Pain Section J - Health Conditions 1. Rarely or not at all 2. Occasionally 3. Frequently 4. Almost constantly 8. Unable to answer Pain Effect on Sleep: 1 Pain Interference with Therapy: 1 Pain Interference w/Day-to-Day: 1 Mental Status Patient Orientation: Person, Place, Time Attachments: Other-See Comments Telemetry Transfers SCALE: Activities may be completed with or without assistive devices. 4-Gyuydepgki-nwvdobv completes the activity by him/herself with no assistance from a helper. 5-Set-up or Clean-up Assistance-helper sets up or cleans up; patient completes activity. [place] assists only prior to or following the activity. 4-Supervision or Touching Assistance-helper provides verbal cues and/or touching/steadying and/or contact guard assistance as patient completes activity. Assistance may be provided throughout the activity or intermittently. 3-Partial/Moderate Assistance-helper does LESS THAN HALF the effort. [place] lifts, holds or supports trunk or limbs, but provides less than half the effort. 2-Substantial/Maximal Assistance-helper does MORE THAN HALF the effort. [place] lifts or holds trunk or limbs and provides more than half the effort. 4-Pziixjxrv-vmmvcn does ALL the effort. Patient does none of the effort to complete the activity. Or, the assistance of 2 or more helpers is required for the patient to complete the activity. If activity was not attempted, code reason: 7-Patient Refused. 9-Not Applicable-not attempted and the patient did not perform the activity before the current illness, exacerbation or injury. 10-Not Attempted due to Environmental Limitations-(lack of equipment, weather restraints, etc.). 88-Not Attempted due to Medical Conditions or Safety Concerns. Sit to Stand (QC): 6 Pt independent with sit to stand transfers. Uses UEs to push from armrests and reaches for FWW. Weight Bearing Full Weight Bearing Full Weight Bearing Gait Training Does the Patient Walk?: Yes Distance: 60 Walk 10 feet (QC): 4 Walk 50 ft with 2 Turns(QC): 4 Gait Persons Needed: 1 Gait Assistive Device: FWW Pt ambulated 60 feet with use of FWW. SBA for safety. Displays steady and slow gait pattern with no loss of balance. Exercises Seated Therapy Exercises: Ankle pumps, Long arc quads, Hip flexion, Hamstring Curls, Hip abd/add Seated Reps: 10 Displays good muscle strength and endurance with therapeutic exercises. Required no rest breaks between sets. Assessment Current Status: Good Progress Pt demonstrates good muscle strength throughout visit. No loss of balance displayed with gait training. Displays limited endurance with gait training. C ontinue to progress pt as tolerated per POC to increase strength, endurance, and functional ability. PT [employer] Goals Snf Goals PT [employer] Goals Time Frame: Oct 25, 2022 Roll Left & Right (QC): 4 (SBA) Sit to Lying (QC): 4 (SBA) Lying-Sitting on Side/Bed(QC): 4 (SBA) Sit to Stand (QC): 4 (CGA) Chair/Kbb-el-Iekum Xfer(QC): 4 (CGA) Toilet Transfer (QC): 4 (CGA) Car Transfer (QC): 4 (CGA) Does the Patient Walk: Yes Walk 10 feet (QC): 4 (CGA) Walk 50ft with 2 Turns (QC): 4 (CGA) Walk 150 ft (QC): 4 (CGA) Walking 10ft on Uneven Surface: 4 (CGA) 1 Step (curb) (QC): 4 (CGA) 4 Steps (QC): 4 (CGA) 12 Steps (QC): 88 Picking up an Object (QC): 4 (SBA using hydraulic press tender) Wheel 50 feet with 2 turns (QC: 5 Wheel 150 feet: 5 PT Plan Treatment/Plan Treatment Plan: Continue Plan of Care Treatment Plan: Bed Mobility, Education, Functional Activity Guera, Functional Strength, Group Therapy, Gait, Safety, Therapeutic Exercise, Transfers Treatment Duration: Oct 25, 2022 Frequency: At least 5 of 7 days/Wk (IRF) Estimated Hrs Per Day: 1.5 hours per day Patient and/or Family Agrees t: Yes Time Time In: 827 Time Out: 839 DATE: Oct 22, 2022 Total Billed Treatment Time: 12 Total Billed Treatment 1 visit GT 1x MAJOR,FABRIZIO HEAT TREATER HEAD Oct 22, 2022 13:13
--- NOTE | 2022-10-24 08:45 | Therapy Team Discharge Summary ---
Therapy Discharge Summary Discharge Recommendations Date of Discharge Oct 22, 2022 at 10:20 Physical Therapy Patient came to rehab post CVA. Upon evaluation patient performs rolling and supine <-> sit with min assist, sit <-> stand and transfers min assist, car transfer min assist, ambulate 100' with a rolling walker with min assist (including 50' with at least 2 turns of 90 degrees but is not safe to ambulate over an uneven surface yet), can propel a manual WC 150' with min assist, and can pickle solution maker an object from the floor using a senior regulatory affairs specialist with min assist. Patient has been performing bed mobility and transfer training, balance and endurance training, functional strengthening, stair training, gait training, and education. Patient has made some progress but has only met her retirement goals for bed mobility and transfers. Now, patient performs rolling and supine <-> sit with independence, sit <-> stand independent, transfers CGA/SBA, ambulates 50' with a rolling walker with CGA/SBA, can go up and down 3 steps using 2 handrails with min assist, and can propel a manual WC with setup. Patient has been discharged from this facility and will be discharged from PT at this time. Roll Left to Right (QC): 6 Sit to Lying (QC): 6 Lying to Sitting/Side of Bed(Q: 6 Sit to Stand (QC): 6 Chair/Xlw-mx-Oqzir Xfer(QC): 4 Toilet Transfer (QC): 6 Car Transfer (QC): 3 Does the Patient Walk: Yes Mode of Locomotion: Both Anticipated Mode of Locomotion: Walk Walk 10 feet (QC): 4 Walk 50 ft with 2 Turns(QC): 4 Walk 150 ft (QC): 4 Walking 10ft on uneven surface: 88 Distance: 100'x2 Gait Assistive Device: FWW Does the Pt Use a Wheelchair: Yes Wheelchair Distance: 150' Wheel 50 ft with 2 turns (QC): 5 Wheel 150 ft (QC): 3 Type of Wheelchair: Manual #of Steps: 3 1 Step (curb) (QC): 3 4 Steps (QC): 88 12 Steps (QC): 88 Balance Sitting Static: Fair Balance Sitting Dynamic: Fair Balance-Standing Static: Poor Picking up an Object (QC): 3 (min assist using a senior regulatory affairs specialist) Occupational Therapy Decreased Activ Tolerance, Impaired Funct Balance, Impaired Self-Care Skills, Restricted Funct UE ROM Eating (QC): 5 Oral Hygiene (QC): 6 (Sitting at sink) Shower/Bathe Self (QC): 6 Upper Body Dressing (QC): 5 Lower Body Dressing (QC): 4 On/Off Footwear (QC): 5 Toileting Hygiene (QC): 4 (SBA using grabbars when completing clothing manipulation. Sitting to complete hygiene by self.) PT Town Manager Goals Town Manager Goals PT Town Manager Goals Time Frame: Oct 25, 2022 Roll Left to Right (QC): 4 (SBA) Sit to Lying (QC): 4 (SBA) Lying-Sitting on Side/Bed(QC): 4 (SBA) Sit to Stand (QC): 4 (CGA) Chair/Mzl-pw-Pyizu Xfer(QC): 4 (CGA) Toilet/Commode Transfer (QC): 4 (CGA) Car Transfer (QC): 4 (CGA) Does the Patient Walk: Yes Walk 10 feet (QC): 4 (CGA) Walk 10ft-Uneven Surface(QC): 4 (CGA) Walk 50ft with 2 Turns (QC): 4 (CGA) Walk 150 ft (QC): 4 (CGA) Wheel 50 feet with 2 turns (QC: 5 Wheel 150 feet: 5 1 Step (curb) (QC): 4 (CGA) 4 Steps (QC): 4 (CGA) 12 Steps (QC): 88 Picking up an Object (QC): 4 (SBA using senior regulatory affairs specialist) OT [facility] Goals Mcfp Goals Time Frame: Nov 04, 2022 Acute change in mental status: 0 Inattention: 0 Disorganized thinkin Altered level of consciousness: 0 Eating (QC): 6 (met) Oral Hygiene (QC): 6 (met-in sitting) Toileting Hygiene (QC): 6 (not met) Shower/Bathe Self (QC): 6 (met-sitting 100% of the time) Upper Body Dressing (QC): 6 (not met) Lower Body Dressing (QC): 6 (not met) On/Off Footwear (QC): 6 (not met) Additional Goals: 1-Demonstrate ADL Tasks, 2-Verbalize Understanding, 3- ImproveStrength/Guera 1=Demonstrate adherence to instructed precautions during ADL tasks. 2=Patient will verbalize/demonstrate understanding of assistive devices/modifications for ADL. 3=Patient will improve strength/tolerance for activity to enable patient to perform ADL's. AINSLEY CRENSHAW PT Oct 24, 2022 08:45
--- NOTE | 2022-10-24 10:52 | Therapy Team Discharge Summary ---
Therapy Discharge Summary Discharge Recommendations Date of Discharge Oct 22, 2022 at 10:20 Physical Therapy Roll Left to Right (QC): 6 Sit to Lying (QC): 6 Lying to Sitting/Side of Bed(Q: 6 Sit to Stand (QC): 6 Chair/Rya-fe-Gaieb Xfer(QC): 4 Toilet Transfer (QC): 6 Car Transfer (QC): 3 Does the Patient Walk: Yes Mode of Locomotion: Both Anticipated Mode of Locomotion: Walk Walk 10 feet (QC): 4 Walk 50 ft with 2 Turns(QC): 4 Walk 150 ft (QC): 4 Walking 10ft on uneven surface: 88 Distance: 100'x2 Gait Assistive Device: FWW Does the Pt Use a Wheelchair: Yes Wheelchair Distance: 150' Wheel 50 ft with 2 turns (QC): 5 Wheel 150 ft (QC): 3 Type of Wheelchair: Manual #of Steps: 3 1 Step (curb) (QC): 3 4 Steps (QC): 88 12 Steps (QC): 88 Balance Sitting Static: Fair Balance Sitting Dynamic: Fair Balance-Standing Static: Poor Picking up an Object (QC): 3 (min assist using a lead applications developer) Occupational Therapy Pt admitted to ARU s/p CVA. At [facility], pt was independent with ADLS and functional mobility without AD. Upon initial evaluation, pt required set up with eating, min A oral care, showering and toileting, and mod A with UE dressing, LE dressing and footwear. OT tx focused on increasing BUE strength and activity tolerance, and increasing safety and independence with ADLS. Pt made functional progress towards goals, attaining IND with eating, oral care and showering. Pt discharged from facility, d/c from OT. Decreased Activ Tolerance, Impaired Funct Balance, Impaired Self-Care Skills, Restricted Funct UE ROM Eating (QC): 5 Oral Hygiene (QC): 6 (Sitting at sink) Shower/Bathe Self (QC): 6 Upper Body Dressing (QC): 5 Lower Body Dressing (QC): 4 On/Off Footwear (QC): 5 Toileting Hygiene (QC): 4 (SBA using grabbars when completing clothing manipulation. Sitting to complete hygiene by self.) PT [facility] Goals Residential Program Director Goals PT [facility] Goals Time Frame: Oct 25, 2022 Roll Left to Right (QC): 4 (SBA) Sit to Lying (QC): 4 (SBA) Lying-Sitting on Side/Bed(QC): 4 (SBA) Sit to Stand (QC): 4 (CGA) Chair/Dyw-qb-Aracj Xfer(QC): 4 (CGA) Toilet/Commode Transfer (QC): 4 (CGA) Car Transfer (QC): 4 (CGA) Does the Patient Walk: Yes Walk 10 feet (QC): 4 (CGA) Walk 10ft-Uneven Surface(QC): 4 (CGA) Walk 50ft with 2 Turns (QC): 4 (CGA) Walk 150 ft (QC): 4 (CGA) Wheel 50 feet with 2 turns (QC: 5 Wheel 150 feet: 5 1 Step (curb) (QC): 4 (CGA) 4 Steps (QC): 4 (CGA) 12 Steps (QC): 88 Picking up an Object (QC): 4 (SBA using lead applications developer) OT [facility] Goals Residential Program Director Goals Time Frame: Nov 04, 2022 Acute change in mental status: 0 Inattention: 0 Disorganized thinkin Altered level of consciousness: 0 Eating (QC): 6 (met) Oral Hygiene (QC): 6 (met-in sitting) Toileting Hygiene (QC): 6 (not met) Shower/Bathe Self (QC): 6 (met-sitting 100% of the time) Upper Body Dressing (QC): 6 (not met) Lower Body Dressing (QC): 6 (not met) On/Off Footwear (QC): 6 (not met) Additional Goals: 1-Demonstrate ADL Tasks, 2-Verbalize Understanding, 3- ImproveStrength/Guera 1=Demonstrate adherence to instructed precautions during ADL tasks. 2=Patient will verbalize/demonstrate understanding of assistive devices/modifications for ADL. 3=Patient will improve strength/tolerance for activity to enable patient to perform ADL's. RENEE FUENTES OT Oct 24, 2022 10:52
== END 2022-10-22 10:20 | disposition home health service (06) | DRG 57 ==
PROVIDERS: ADMIT Internal Medicine; ATTEND Internal Medicine
DX: I69.354 Hemiplegia and hemiparesis following cerebral infarction affecting left non-dominant side (principal); I38 Endocarditis, valve unspecified; I42.8 Other cardiomyopathies; I69.392 Facial weakness following cerebral infarction; I69.398 Other sequelae of cerebral infarction; H53.8 Other visual disturbances; R26.89 Other abnormalities of gait and mobility; R42 Dizziness and giddiness; I95.9 Hypotension, unspecified; I12.9 Hypertensive chronic kidney disease with stage 1 through stage 4 chronic kidney disease, or unspecified chronic kidney disease; E11.22 Type 2 diabetes mellitus with diabetic chronic kidney disease; N18.30 Chronic kidney disease, stage 3 unspecified; D63.8 Anemia in other chronic diseases classified elsewhere; R53.81 Other malaise; Z91.81 History of falling; F32.A Depression, unspecified; K21.9 Gastro-esophageal reflux disease without esophagitis; M19.91 Primary osteoarthritis, unspecified site; F41.9 Anxiety disorder, unspecified; E78.5 Hyperlipidemia, unspecified; Z79.84 Long term (current) use of oral hypoglycemic drugs; Z87.891 Personal history of nicotine dependence; Z79.01 Long term (current) use of anticoagulants; Z88.1 Allergy status to other antibiotic agents; Z88.5 Allergy status to narcotic agent; Z88.0 Allergy status to penicillin; Z88.8 Allergy status to other drugs, medicaments and biological substances
CPT/HCPCS: 36415; 80048; 80053; 80162; 82607; 82947; 83540; 85025; 93005; 93306